=== PATIENT | female | born 1935 | race Caucasian/White ===

== ENCOUNTER 2021-12-10 09:45 | Outpatient (CLI) | payer MEDICARE, OTHER, SELFPAY ==
--- OUTSIDE RECORDS SUMMARY | 2021-12-23 12:35 | XMS_ITS | Clinical Summary ---
:1935 Author Organization [facility] Address [address] [place] [address]. [place] [address] Care Team Providers Name Role Phone Loren Beyer MD Primary Care Provider [phone] Allergies Active Allergy Reactions Severity Noted Date Comments Alendronic Acid 07/03/2014 Animal Dander 01/22/2013 Asthma Aspirin 01/22/2013 Doesn't tolerat e because of asth ma Atorvastatin 01/22/2013 Stiff neck and neck pain Calcitonin 07/03/2014 Claritin 01/22/2013 Stays awake for 40 hours after 1/4 tablet Codeine Unknown 07/01/2014 Hallucinations Food High 01/22/2013 Any contact wit h peas, even odor, caus es throat to swell shut. Spicy and acidi c foods cause GERD Fosamax 01/22/2013 Hydromorphone Other (See 07/03/2014 Mental changes Comments) Lisinopril Itching 07/03/2014 Loratadine 07/03/2014 Lorazepam Other (See 07/03/2014 confusion Comments) Oxycodone 01/22/2013 Hallucinations and confusion Penicillins Swelling High 01/22/2013 Head swells; a sthma flares up Perfume 01/22/2013 Asthma Petrolatum, Hydrophilic Rash Low 01/22/2013 Juan oleum based salves and lotions cau se rash Pollen Extract 01/22/2013 asthma Smoke. 01/22/2013 Asthma Sulfa Drugs Shortness Of High 01/22/2013 asthma flares up Breath, Swelling Wool Fiber 01/22/2013 asthma Medications Medication Sig Dispensed Refills Start Date End Date Status OMEPRAZOLE PO Take 20 mg by 0 Ac tive mouth 2 times daily (before meals) Levothyroxine Sodium Take 25 mcg by 0 Active (SYNTHROID PO) mouth every morning albuterol (PROAIR HFA, Inhale 2 puffs 0 Active PROVENTIL HFA, into the lungs 2 VENTOLIN HFA) 108 (90 times daily BASE) MCG/ACT inhaler beclomethasone (QVAR) Inhale 2 puffs 0 Active 80 MCG/ACT Inhaler into the lungs 2 times daily CLONIDINE HCL PO Take 0.05 mg by 0 Active mouth 2 times daily SERTRALINE HCL PO Take 50 mg by 0 Active mouth every evening raloxifene (EVISTA) 60 Take 60 mg by 0 Active MG tablet mouth every evening calcium-vitamin D Take 1 tablet by 0 Active (CALTRATE) 600-400 mouth daily MG-UNIT per tablet multivitamin, Take 1 tablet by 0 Active therapeutic with mouth daily minerals (MULTI-VITAMIN) TABS PREDNISONE PO 20 mg for 5 days, 0 Active then 10 mg for 5 days, then 10 mg every other day for 5 days - for asthma flareup - PRN albuterol (2.5 MG/3ML) Take 1 ampule by 0 Active 0.083% nebulizer nebulization every solution 6 hours as needed NEW MED Digel - takes 2 0 Acti ve tablets or 2 teaspoons prn ONDANSETRON PO Take 4 mg by mouth 0 Active every 6 hours as needed for other (for vertigo prior to taking Meclizine) Follow with Meclizine MECLIZINE HCL PO Take 12.5 mg by 0 Active mouth every 6 hours as needed for other (for vertigo) LACTASE ENZYME PO Take 9,000 Units 0 Active by mouth as needed Before ingesting any dairy product chlorpheniramine Take 2 mg by mouth 0 Active (CHLOR-TRIMETON) 4 MG every 6 hours as tablet needed Takes for pollen allergy prn Active Problems No known active problems Resolved Problems Problem Noted Date Resolved Date 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 02/01/2013 Social History Tobacco Use Types Packs/Day Years Used Date Never Smoker Smokeless Tobacco: Never Used Alcohol Use Standard Drinks/Week Comments No 0 (1 standard drink = 0.6 oz pure alcoho l) Sex Assigned at Date Recorded Not on file Last Filed Vital Signs Vital Sign Reading Time Taken Comments Blood Pressure 166/69 11/25/2017 9:20 AM CDT Pulse 86 01/31/2013 11:33 PM CDT Temperature 36.3 ??C (97.4 ??F) 02/02/2013 7:50 AM CDT Respiratory Rate 27 11/25/2017 9:21 AM CDT Oxygen Saturation 100% 11/25/2017 9:21 AM CDT Inhaled Oxygen Concentration - - Weight 51.7 kg (114 lb) 11/25/2017 7:20 AM CDT Height 147.3 cm (4' 10) 11/25/2017 7:20 AM CDT Body Mass Index 23.83 11/25/2017 7:20 AM CDT Plan of Treatment Not on file Medical Devices Implanted Type Area Retail Wireless Sales Consultant Device Shelf Model / Identifier Expiration Date Ser ial / Lot Humeral Bearing Standard [id number] Right: 10/12/2017 [id number] / Implanted: Qty: 1 on 01/30/2013 by Jc Farr MD at [facility] / [id number] Insurance Payer Benefit Plan / Subscriber ID Effective Phone Address T ype Group Dates MEDICA MEDICA PRIME [id number] 2010-Prese [phone] [address] Indemnity [address]UTION [address] [place] [address] MEDICARE MEDICARE FOR HB [id number] 2008-Prese [phone] ATTN CLAIMS Medicare SUPPLEMENT nt 40 [address] [place] [address] Advance Directives For more information, please contact: [phone] Latest Code Status on File Code Status Date Activated Date Inactivated Comments DNR/DNI 01/30/2013 12:12 PM 02/02/2013 12:40 PM Care Teams Director Patient Accounting Relationship Specialty Start Date End Date Loren Beyer MD PCP - General Family Practice 11/15/[address] [id number]
--- OUTSIDE RECORDS SUMMARY | 2021-12-23 12:35 | XMS_ITS | Encounter Summary ---
:1935 Author Organization [place] Address [facility] [place] [address] Care Team Providers Name Role Phone Arlin López Primary Care Provider Reason for Visit Auth/Cert - Closed Specialty Diagnoses / Procedures Referred By Contact Refer red To Contact Surgery Diagnoses Right shoulder degenerative joint disease Rh Periop Se rvices Procedures ARTHROPLASTY SHOULDER REVERSE ARTHROPLASTY SHOULDER> [address] [place], [place] [phone] Fax: Referral ID Status Reason Start Date Expiration Date Visits Requ ested Visits Authorized [id number] Closed 1 1 Encounter Details Date Type Department Care Team Description 01/29/2013 Hospital Encounter [facility] Jc Phelps MD Laboratory [facility] [address] [facility] ORTHOPED[facility] [place], [place] [address] [facility] [phone] [address] [place] [address] (Wo rk) Social History Tobacco Use Types Packs/Day Years Used Date Never Smoker Alcohol Use Standard Drinks/Week Comments No 0 (1 standard drink = 0.6 oz pure alcoho l) Sex Assigned at Date Recorded Not on file documented as of this encounter Medications at Time of Discharge Medication Sig Dispensed Refills Start Date End Date albuterol (2.5 MG/3ML) Take 1 ampule by 0 0.083% nebulizer solution nebulization every 6 hours as needed albuterol (PROAIR HFA, Inhale 2 puffs into 0 PROVENTIL HFA, VENTOLIN the lungs 2 times HFA) 108 (90 BASE) daily MCG/ACT inhaler beclomethasone (QVAR) 80 Inhale 2 puffs into 0 MCG/ACT Inhaler the lungs 2 times daily calcium-vitamin D Take 1 tablet by 0 (CALTRATE) 600-400 mouth daily MG-UNIT per tablet chlorpheniramine Take 2 mg by mouth 0 (CHLOR-TRIMETON) 4 MG every 6 hours as tablet needed Takes for pollen allergy prn CLONIDINE HCL PO Take 0.05 mg by 0 mouth 2 times daily LACTASE ENZYME PO Take 9,000 Units by 0 mouth as needed Before ingesting any dairy product Levothyroxine Sodium Take 25 mcg by mouth 0 (SYNTHROID PO) every morning MECLIZINE HCL PO Take 12.5 mg by 0 mouth every 6 hours as needed for other (for vertigo) multivitamin, therapeutic Take 1 tablet by 0 with minerals mouth daily (MULTI-VITAMIN) TABS NEW MED [place] - takes 2 0 tablets or 2 teaspoons prn OMEPRAZOLE PO Take 20 mg by mouth 0 2 times daily (before meals) ONDANSETRON PO Take 4 mg by mouth 0 every 6 hours as needed for other (for vertigo prior to taking Meclizine) Follow with Meclizine PREDNISONE PO 20 mg for 5 days, 0 then 10 mg for 5 days, then 10 mg every other day for 5 days - for asthma flareup - PRN raloxifene (EVISTA) 60 MG Take 60 mg by mouth 0 tablet every evening SERTRALINE HCL PO Take 50 mg by mouth 0 every evening bisacodyl (DULCOLAX) 5 MG Take 5 mg by mouth 0 07/03/2014 EC tablet daily as needed FAMOTIDINE PO Take 20 mg by mouth 0 2 times daily GABAPENTIN PO Take 300 mg by mouth 0 0 07/01/2014 2 times daily TRAMADOL HCL PO Take 25 mg by mouth 0 07/01/2014 2 times daily documented as of this encounter Plan of Treatment Not on filedocumented as of this encounter Procedures Procedure Name Priority Date/Time Associated Comments Diagnosis CBC WITH PLATELETS & Routine 01/29/2013 4:28 PM R esults for this DIFFERENTIAL CDT procedure are i n the results section. INR Routine 01/29/2013 4:28 PM Results f or this CDT procedure are i n the results section. PARTIAL THROMBOPLASTIN Routine 01/29/2013 4:28 PM Results for this TIME CDT procedure are i n the results section. COMPREHENSIVE METABOLIC Routine 01/29/2013 4:28 PM Results for this PANEL CDT procedure are i n the results section. ABO/RH TYPE AND SCREEN Routine 01/29/2013 4:28 PM Results for this CDT procedure are i n the results section. documented in this encounter Results Partial thromboplastin time (01/29/2013 4:28 PM CDT) athologist Signature PTT 32 22 - 37 sec [facility] Specimen Anatomical Collection Method Collection Time Receive d Time (Source) Location / / Volume Laterality 01/29/2013 4:28 PM 3 4:35 CDT PM CDT Jc Farr MD LAB - BLOOD ORDERABLES Performing Organization Address [facility] [phone] [place] [address] LAB INR (01/29/2013 4:28 PM CDT) athologist Signature INR 0.95 0.86 - 1.14 [facility] Specimen Anatomical Collection Method Collection Time Receive d Time (Source) Location / / Volume Laterality 01/29/2013 4:28 PM 3 4:35 CDT PM CDT Jc Farr MD LAB - BLOOD ORDERABLES Performing Organization Address [facility]/[place] [address] [place], [place] [address] [address] [phone] [place] [address] LAB Comprehensive metabolic panel (01/29/2013 4:28 PM CDT) athologist Signature Sodium 139 133 - 144 [place] mmol/L [facility] Potassium 4.0 3.4 - 5.3 [place] mmol/L [facility] Chloride 101 94 - 109 [place] mmol/L [facility] Carbon Dioxide 31 20 - 32 [place] mmol/L [facility] Anion Gap 7 6 - 17 [place] mmol/L [facility] Glucose 98 60 - 99 [place] mg/dL [facility] Urea Nitrogen 16 7 - 30 [place] mg/dL [facility] Creatinine 0.77 0.52 - [place] 1.04 mg/dL [facility] GFR Estimate 73 >60 [place] mL/min/1.[address] LAB GFR Estimate If 88 >60 [place] Black mL/min/1.[address] LAB Calcium 8.9 8.5 - 10.4 [place] mg/dL [facility] Bilirubin Total 0.3 0.2 - 1.3 [place] mg/dL [facility] Albumin 3.8 3.3 - 4.9 [place] g/dL [facility] Protein Total 7.1 6.8 - 8.8 [place] g/dL [facility] Alkaline 62 40 - 150 [place] Phosphatase U/L [facility] ALT 30 0 - 50 U/L [facility] AST 28 0 - 45 U/L [facility] Specimen Anatomical Collection Method Collection Time Receive d Time (Source) Location / / Volume Laterality 01/29/2013 4:28 PM 3 4:35 CDT PM CDT Jc Farr MD LAB - BLOOD ORDERABLES Performing Organization Address City/State/ZIP Code Phon e Number M [place] [address] [place], [place] [address] [facility] (ABNORMAL) CBC with platelets differential (01/29/2013 4:28 PM CDT) [facility] Method Time Signature WBC 7.4 4.0 - [place] 11.0 [facility] 10e9/L [facility] RBC Count 4.42 3.8 - 5.2 [place] 10e12/L [facility] Hemoglobin 11.3 (L) 11.7 - [place] 15.7 g/dL [facility] Hematocrit 36.2 35.0 - [facility] 47.0 % [facility] MCV 82 78 - 100 [place] fl [facility] MCH 25.6 (L) 26.5 - [facility] 33.0 pg [facility] MCHC 31.2 (L) 31.5 - [place] 36.5 g/dL [facility] RDW 16.4 (H) 10.0 - [place] 15.0 % [facility] Platelet Count 221 150 - 450 [place] 10e9/L [facility] Diff Method Automated [facility] LAB % Neutrophils 62.5 % [facility] % Lymphocytes 25.2 % [facility] % Monocytes 8.5 % [facility] % Eosinophils 3.1 % [facility] % Basophils 0.4 % [facility] % Immature 0.3 % [place] Granulocytes [facility] Absolute 4.6 1.6 - 8.3 [place] Neutrophil 10e9/L [facility] Absolute 1.9 0.8 - 5.3 [place] Lymphocytes 10e9/L [facility] Absolute 0.6 0.0 - 1.3 [place] Monocytes 10e9/L [facility] Absolute 0.2 0.0 - 0.7 [place] Eosinophils 10e9/L [facility] Absolute 0.0 0.0 - 0.[address] [place] Basophils [address] [place] [address] LAB Abs Immature 0.0 0 - 0.4 [place] Granulocytes [address] [place] [address] LAB Specimen Anatomical Collection Method Collection Time Receive d Time (Source) Location / / Volume Laterality 01/29/2013 4:28 PM 3 4:35 CDT PM CDT Jc Farr MD LAB - BLOOD ORDERABLES Performing Organization Address City/State/ZIP Code Phon e Number M [facility] [address] [place], [place] [address] [facility] ABO/Rh type and screen (01/29/2013 4:28 PM CDT) [facility] gist Method Time Signature ABO A [facility] RH(D) Neg [facility] Antibody Neg [place] Screen [facility] Test Valid [facility] Only At [facility] LAB Specimen 02/01/2013 [place] [facility] Specimen Anatomical Collection Method Collection Time Receive d Time (Source) Location / / Volume Laterality 01/29/2013 4:28 PM 3 4:34 CDT PM CDT Jc Farr MD LAB - BLOOD BANK TEST ORDER Performing Organization Address City/State/ZIP Code Phon e Number M [facility] [address] [place], [place] [address] [facility] documented in this encounter Visit Diagnoses Not on filedocumented in this encounter Care Teams Home School Coordinator Relationship Specialty Start Date End Date Arlin López PCP - General Internal Medicine 01/18/13 11/14/17 [facility] [address] [place] [address] documented as of this encounter
--- OUTSIDE RECORDS SUMMARY | 2021-12-23 12:35 | XMS_ITS | Encounter Summary ---
:1935 Author Organization [facility] Address [address] [place] [address]. [place] [address] Care Team Providers Name Role Phone Arlin López Primary Care Provider Reason for Referral Specialty Diagnoses / Procedures Referred By Contact Refer red To Contact [facility] [address] [place] [address] Referral ID Status Reason Start Date Expiration Date Visits Requ ested Visits Authorized Reason for Visit Auth/Cert - Closed Specialty Diagnoses / Procedures Referred By Contact Refer red To Contact Surgery Diagnoses Right shoulder degenerative joint disease Rh Periop Se rvices Procedures ARTHROPLASTY SHOULDER REVERSE ARTHROPLASTY SHOULDER> [address] [place], [place] [phone] Fax: Referral ID Status Reason Start Date Expiration Date Visits Requ ested Visits Authorized [id number] Closed 1 1 Encounter Details Date Type Department Care Team Description 01/30/2013 - Hospital Encounter [facility] Evy Farr arthritis 02/02/2013 [facility] Jethro Wagner MD (Primary Dx) Surgical [facility] [address] [employer] [place], [place] [address] [address] [address] [place] [address] Social History Tobacco Use Types Packs/Day Years Used Date Never Smoker Alcohol Use Standard Drinks/Week Comments No 0 (1 standard drink = 0.6 oz pure alcoho l) Sex Assigned at Date Recorded Not on file documented as of this encounter Last Filed Vital Signs Vital Sign Reading Time Taken Comments Blood Pressure 153/75 01/30/2013 12:15 PM CDT Pulse - - Temperature 36.9 ??C (98.4 ??F) 01/30/2013 12:15 PM CDT Respiratory Rate 16 01/30/2013 12:15 PM CDT Oxygen Saturation 98% 01/30/2013 12:15 PM CDT Inhaled Oxygen Concentration - - Weight 53.5 kg (118 lb) 01/30/2013 5:40 AM CDT Height 147.3 cm (4' 10) 01/30/2013 5:40 AM CDT Body Mass Index 24.66 01/30/2013 5:40 AM CDT documented in this encounter Discharge Summaries Evy Farr MD - 02/01/2013 10:44 AM CDT [facility] Discharge Summary Fawad Unger [id number] Age: [age] year old 1935 Date of Admission: 01/30/2013 Date of Discharge:: February 02, 2013 Admitting Physician: Evy Farr MD Discharge Physician: Evy Farr MD Admission Diagnoses: Osteoarthritis Discharge Diagnosis: Arthoplasty of the shoulder Procedures: Procedure(s): Total shoulder arthoplasty (Right) Medications Prior to Admission: Prescriptions prior to admission Medication Sig Dispense Refill ??? OMEPRAZOLE PO Take 20 mg by mouth 2 times daily (before meals) ??? Levothyroxine Sodium (SYNTHROID PO) Take 25 mcg by mouth every morning ??? albuterol (PROAIR HFA, PROVENTIL HFA, VENTOLIN HFA) 108 (90 BASE) MCG/ACT inhaler Inhale 2 puffsinto the lungs 2 times daily ??? beclomethasone (QVAR) 80 MCG/ACT Inhaler Inhale 2 puffs into the lungs 2 times daily ??? FAMOTIDINE PO Take 20 mg by mouth 2 times daily ??? CLONIDINE HCL PO Take 0.05 mg by mouth 2 times daily ??? GABAPENTIN PO Take 300 mg by mouth 2 times daily ??? TRAMADOL HCL PO Take 25 mg by mouth 2 times daily ??? SERTRALINE HCL PO Take 50 mg by mouth every evening ??? raloxifene (EVISTA) 60 MG tablet Take 60 mg by mouth every evening ??? calcium-vitamin D (CALTRATE) 600-400 MG-UNIT per tablet Take 1 tablet by mouth daily ??? multivitamin, therapeutic with minerals (MULTI-VITAMIN) TABS Take 1 tablet by mouth daily ??? NEW MED Digel - takes 2 tablets or 2 teaspoons prn ??? ONDANSETRON PO Take 4 mg by mouth every 6 hours as needed Follow with Meclizine ??? LACTASE ENZYME PO Take 9,000 Units by mouth as needed Before ingesting any dairy product ??? chlorpheniramine (CHLOR-TRIMETON) 4 MG tablet Take 2 mg by mouth every 6 hours as needed Takes for pollen allergy prn ??? bisacodyl (DULCOLAX) 5 MG EC tablet Take 5 mg by mouth daily as needed ??? PREDNISONE PO 20 mg for 5 days, then 10 mg for 5 days, then 10 mg every other day for 5 days - for asthma flareup - PRN ??? albuterol (2.5 MG/3ML) 0.083% nebulizer solution Take 1 ampule by nebulization every 6 hours as needed ??? MECLIZINE HCL PO Take 12.5 mg by mouth every 6 hours as needed Discharge Medications: Current Discharge Medication List CONTINUE these medications which have NOT CHANGED Details OMEPRAZOLE PO Take 20 mg by mouth 2 times daily (before meals) Levothyroxine Sodium (SYNTHROID PO) Take 25 mcg by mouth every morning albuterol (PROAIR HFA, PROVENTIL HFA, VENTOLIN HFA) 108 (90 BASE) MCG/ACT inhaler Inhale 2 puffs into the lungs 2 times daily beclomethasone (QVAR) 80 MCG/ACT Inhaler Inhale 2 puffs into the lungs 2 times daily FAMOTIDINE PO Take 20 mg by mouth 2 times daily CLONIDINE HCL PO Take 0.05 mg by mouth 2 times daily GABAPENTIN PO Take 300 mg by mouth 2 times daily TRAMADOL HCL PO Take 25 mg by mouth 2 times daily SERTRALINE HCL PO Take 50 mg by mouth every evening raloxifene (EVISTA) 60 MG tablet Take 60 mg by mouth every evening calcium-vitamin D (CALTRATE) 600-400 MG-UNIT per tablet Take 1 tablet by mouth daily multivitamin, therapeutic with minerals (MULTI-VITAMIN) TABS Take 1 tablet by mouth daily NEW MED Digel - takes 2 tablets or 2 teaspoons prn ONDANSETRON PO Take 4 mg by mouth every 6 hours as needed Follow with Meclizine LACTASE ENZYME PO Take 9,000 Units by mouth as needed Before ingesting any dairy product chlorpheniramine (CHLOR-TRIMETON) 4 MG tablet Take 2 mg by mouth every 6 hours as needed Takes for pollen allergy prn bisacodyl (DULCOLAX) 5 MG EC tablet Take 5 mg by mouth daily as needed PREDNISONE PO 20 mg for 5 days, then 10 mg for 5 days, then 10 mg every other day for 5 days - for asthma flareup - PRN albuterol (2.5 MG/3ML) 0.083% nebulizer solution Take 1 ampule by nebulization every 6 hours as needed MECLIZINE HCL PO Take 12.5 mg by mouth every 6 hours as needed Consultations: Consultation during this admission received from hospitalist service Brief History of Illness: Reason for admission requiring a surgical or invasive procedure: Arthoplasty of the shoulder The patient underwent the following procedure(s): Total shoulder arthoplasty (Right) There were no immediate complications during this procedure. Please refer to the full operative summary for details. Hospital Course: The patient's hospital course was unremarkable. The patient recovered as anticipated and experiencedno post-operative complications. They Did not receive a blood transfusion. Discharge Instructions and Follow-Up: Discharge diet: Regular Discharge activity: Activity as tolerated Sling mouthpiece maker except for showering and dressing or doing exercises. May do codman passive pendulumexercised. No active resisted internal rotation or external rotation past 0 degrees Discharge follow-up: Follow up with me in 10-14 days Anticoagulation none Wound care: May get incision wet in shower but do not soak or scrub Leave dressing intact until follow up. Discharge Disposition: Discharged to short-term care facility Attestation: I have reviewed today's vital signs, notes, medications, labs and imaging. Evy Farr MD documented in this encounter Medications at Time of Discharge [...] times daily documented as of this encounter Progress Notes Evy Farr MD - 02/02/2013 10:58 AM CDT Brittani Hinds LSW - 02/02/2013 10:43 AM CDT SWS D: Discharge planning for transfer today to rehab facility. Call received this morning from Mery at [facility] informing that they have no openings there. Pt and had identified [facility] as facility for consideration, assessment completed and they will be able to accept pt there. As arrangements were being finalized for pt's transfer, with providing transport, [facility] foreign exchange student coordinator called informing that they do have be available. Pt has requested that arrangements be made for her transfer to [facility], arrangements were adjusted and pt discharged to that facility for rehab stay with providing transport ( @ 1015) as noted. With discharge today, no furtehr SWS. Brittani Hinds LSW - 02/01/2013 3:18 PM CDT SWS D: Discharge planning continuing.. Discussed with MD who informs of plan for pt's transefr tomorrowto rehab facility. [facility] has no openings, awaiting calls back from [facility] to determine if they have opening there. I: Met with and discussed above with pt and . Addressed questions they had regarding possibility of pt's return home on discharge with home care services, discussed intermittent nature of home care, posed question about 's ability to provide support needed at home with pt's care needs. Recommended consideration of other rehab facilities, they have indicated that [place], or maybe [facility] as son lives in that area. SW has provided information on rehab facility in thoseidentified areas, requested that pt andhusband review and advise of facilities they may be interested in so assessments can be done. A/P: Discharge disposition undetermined.. SW will follow up with pt and tomorrow for further discharge planning based on decisions that they make. TAT Marquita Baer MD - 02/01/2013 10:42 AM CDT [facility] Hospitalist Progress Note Assessment and Plan: Patient is a 77 year old female who is POD 1 s/p reverse total shoulder arthroplasty, right 1. Hypertension: BP on the high side. Continue on CLINICAL REGISTERED NURSE clonidine with parameters. Will continue to monitor blood pressure 2. GERD: Continue on CLINICAL REGISTERED NURSE omeprazole and famotidine 3. Asthma: has no wheezes. Will continue CLINICAL REGISTERED NURSE QVAR and Proair inhalers, she has brought them from home. 4. Postherpetic neuralgia: Continue on CLINICAL REGISTERED NURSE gabapentin 5. Hypothyroidism: Continue on CLINICAL REGISTERED NURSE levothyroxine 6. S/p reverse total shoulder arthroplasty: Pain management, DVT PPX, OT/PT, and discharge per ortho. DVT prophylaxis: PCDs and Lovenox per ortho Code status is DNR/DNI Disposition: per primary team Interval History: Patient claims that she has some nausea. She denies vomiting. She has no shortness of breath or chest pain. Medications: I have reviewed this patient's current medications ??? beclomethasone 2 puff Inhalation BID ??? acetaminophen 1,000 mg Oral 3 times daily Or ??? acetaminophen 650 mg Rectal 3 times daily ??? albuterol 2 puff Inhalation BID ??? cloNIDine 0.05 mg Oral BID ??? famotidine (PEPCID) tablet 20 mg 20 mg Oral BID ??? gabapentin (NEURONTIN) capsule 300 mg 300 mg Oral BID ??? lactase (LACTAID) tablet 9,000 Units 9,000 Units Oral TID w/meals ??? omeprazole (priLOSEC) capsule 20 mg 20 mg Oral BID AC ??? sertraline (ZOLOFT) tablet 50 mg 50 mg Oral QPM ??? sodium chloride (PF) 3 mL Intravenous Q8H ??? enoxaparin 40 mg Subcutaneous Q24H ??? senna-docusate 1-2 tablet Oral BID ??? levothyroxine (SYNTHROID, LEVOTHROID) tablet 25 mcg 25 mcg Oral QAM AC ??? DISCONTD: fluticasone 1 puff Inhalation BID Physical Exam: Blood pressure 166/66, pulse 86, temperature 97 ??F (36.1 ??C), temperature source Oral, resp. rate 16, height 1.473 m (4' 10), weight 53.524 kg (118 lb), SpO2 98.00%. I/O last 3 completed shifts: In: 2201 [P.O.:1060; I.V.:1141] Out: 1900 [Urine:1900] Filed Vitals: 01/22/13 1500 01/26/13 1200 01/30/13 0540 Weight: 51.483 kg (113 lb 8 oz) 53.524 kg (118 lb) 53.524 kg (118 lb) EXAM: Constitutional: healthy, not in acute distress Cardiovascular: RRR. No murmurs, clicks gallops or rub Respiratory: Lungs clear from the sides bilaterally Psychiatric: mentation appears normal and affect normal/bright Abdomen: Abdomen soft, non-tender. BS normal. No masses, organomegaly NEURO: CN II-XII intact; moving all extremities except left shoulder- in sling JOINT/EXTREMITIES: no edema bilaterally; right shoulder in sling Data: Recent labs, imaging, and other studies were reviewed. Lab 02/01/13 0625 01/31/13 0553 01/30/13 1300 01/29/13 1628 NA -- -- -- 139 POTASSIUM -- -- -- 4.0 CHLORIDE -- -- -- 101 CO2 -- -- -- 31 ANIONGAP -- -- -- 7 GLC 108* 112* -- 98 BUN -- -- -- 16 CR -- -- 0.64 0.77 GFRESTIMATED -- -- >90 73 GFRESTBLACK -- -- >90 88 KARY -- -- -- 8.9 Lab 02/01/13 0625 01/31/13 0553 01/30/13 1300 01/29/13 1628 WBC 12.4* -- -- 7.4 HGB 11.0* 10.5* -- 11.3* HCT 34.3* -- -- 36.2 MCV 80 -- -- 82 PLT 216 -- 212 221 Evy Farr MD - 02/01/2013 8:11 AM CDT Post op day #2 Procedure: left Total shoulder Arthoplasty Pain: 07/23 Hemoglobin: Hemoglobin Date Value Range Status 02/01/2013 11.0* 11.7 - 15.7 g/dL Final 01/31/2013 10.5* 11.7 - 15.7 g/dL Final Denies chest pain, shortness of breath, light headedness. Is complaining of nausea and vomiting Vitals: B/P: 166/66, T: 97, P: 86, R: 16 Wound: clean, dry and intact. No erythema. Distal neurovascular exam with in normal limits. Calves soft and non tender. Assessment: Stable post op left Total shoulder Arthoplasty Plan: Mobilize Disposition: Rehab Anticipated date of discharge: 02/02/13 Evy Farr MD [phone] Adia Colorado MD - 01/31/2013 3:50 PM CDT [facility] Hospitalist Progress Note Assessment and Plan: Patient is a 77 year old female who is POD 0 s/p reverse total shoulder arthroplasty, right 1. Hypertension: Elevated. Continue on CLINICAL REGISTERED NURSE clonidine with parameters. Patient makes it clear that she wishes to have no other medications added to her regimen. 2. GERD: Continue on CLINICAL REGISTERED NURSE omeprazole and famotidine 3. Asthma: No wheezing currently, well controlled. Resume CLINICAL REGISTERED NURSE QVAR and Proair inhalers, she has brought them from home. 4. Postherpetic neuralgia: Continue on CLINICAL REGISTERED NURSE gabapentin 5. Hypothyroidism: Continue on CLINICAL REGISTERED NURSE levothyroxine 6. Low-grade temperature. No signs of infection currently. Likely related to post-op. Monitor for now. 7. S/p reverse total shoulder arthroplasty: Pain management, DVT PPX, OT/PT, and discharge per ortho. Discussed with nurse, and consider anti-nausea meds with the pain medication to prevent nausea/vomiting. DVT prophylaxis: PCDs and Lovenox per ortho Code status is DNR/DNI Disposition: Plans to discharge to rehab facility, SW consult ordered. Interval History: Patient had nausea/vomiting with pain medication. Denies any chest pain or shortness of breath. Denies any pain currently. Medications: I have reviewed this patient's current medications Physical Exam: Blood pressure 148/56, pulse 79, temperature 100.5 ??F (38.1 ??C), temperature source Oral, resp. rate 16, height 1.473 m (4' 10), weight 53.524 kg (118 lb), SpO2 90.00%. I/O last 3 completed shifts: In: 210 [P.O.:440; I.V.:1661] Out: 2600 [Urine:2600] Filed Vitals: 01/22/13 1500 01/26/13 1200 01/30/13 0540 Weight: 51.483 kg (113 lb 8 oz) 53.524 kg (118 lb) 53.524 kg (118 lb) EXAM: Constitutional: healthy, drowsy and no distress Cardiovascular: RRR. No murmurs, clicks gallops or rub Respiratory: Lungs clear from the sides bilaterally Psychiatric: mentation appears normal and affect normal/bright Abdomen: Abdomen soft, non-tender. BS normal. No masses, organomegaly NEURO: CN II-XII intact; moving all extremities except left shoulder- in sling JOINT/EXTREMITIES: no edema bilaterally; right shoulder in sling Data: Recent labs, imaging, and other studies were reviewed. Lab 01/31/13 0553 01/30/13 1300 01/29/13 1628 NA -- -- 139 POTASSIUM -- -- 4.0 CHLORIDE -- -- 101 CO2 -- -- 31 ANIONGAP -- -- 7 GLC 112* -- 98 BUN -- -- 16 CR -- 0.64 0.77 GFRESTIMATED -- >90 73 GFRESTBLACK -- >90 88 KARY -- -- 8.9 Lab 01/31/13 0553 01/30/13 1300 01/29/13 1628 WBC -- -- 7.4 HGB 10.5* -- 11.3* HCT -- -- 36.2 MCV -- -- 82 PLT -- 212 221 Adia Colorado MD Brittani Hinds LSW - 01/31/2013 3:47 PM CDT SWS D: Per request to assist with discharge planning. Chart reviewed noting pt's admit yesterday after surgery for R TSA, noted PT assessment with anticipation of pt's transfer to rehab facility on discharge. Pt lives with her in their apartment in [place], prior to surgery she had been independent with ambulation and ADLs. I: Met with pt and , they affirm plan for pt's transfer to rehab facility and identify [facility], and [facility] as facility preferences.. they have spoken to facilities prior to pt's surgery in anticipation of pt's rehab facility transfer upon hospital discharge.Referral made to resource center for contact with facilities and determination of bed availability. acknowledges understanding of Medicare/SNF criteria. A/P: Good post-hospital care and support planning.. Will await assessments and MD determination of discharge date and continue planning accordingly. Thu Goldstein OT - 01/31/2013 12:14 PM CDT 01/31/13 0810 Quick Adds Type of Visit Initial Occupational Therapy Evaluation Living Environment (R) Lives With spouse Living Arrangements apartment Home Accessibility grab bars present (bathtub);tub/shower is not walk in Number of Stairs To Enter Home 0 Number of Stairs Within Home 0 Living Environment Comment Pt lives in independent living with supportive ; they have not hadcar for 14 yrs; pt has bike with cart for groceries or else facility has planned van trips Self-Care Dominant Hand right Usual Activity Tolerance good Current Activity Tolerance poor Regular Exercise no Equipment Currently Used At Home none Activity/Exercise/Self-Care Comment Pt had been I with all ADLs/IADLs previously (R) Functional Level Prior (R) Ambulation 0-->independent (R) Transferring 0-->independent (R) Toileting 0-->independent (R) Bathing 0-->independent (R) Dressing 0-->independent (R) Eating 0-->independent (R) Communication 0-->understands/communicates without difficulty (R) Swallowing 0-->swallows foods and liquids without difficulty (R) Cognition 0 - no cognition issues reported (R) Fall history within last six months no (R) Which of the above functional risks had a recent onset or change? none Prior Functional Level Comment Pt has had shingles for past few months, helping a lot General Information Onset of Illness/Injury or Date of Surgery - Date 01/30/13 Referring Physician Evy Farr MD Patient/Family Goals Statement return home following TCU stay Pertinent History of Current Problem Pt admitted wtih R reverse shoulder surgery, PMHx HTN, hypothyroidism, vertigo General Observations pt in bed, moaning/crying out in pain frequently d/t spasms Cognitive Status Examination Orientation orientation to person, place and time Level of Consciousness alert Follows Commands and Answers Questions 100% of the time;able to follow single- step instructions Personal Safety and Judgment intact Cognitive Comment no cognitive concerns at this time, will monitor Visual Perception Visual Perception Wears glasses Sensory Examination Sensory Quick Adds No deficits were identified Pain Assessment Patient Currently in Pain Yes, see Vital Sign flowsheet (02/22 with spasms; 8 at rest) Range of Motion (ROM) ROM Comment R UE not tested; L UE WFL Strength Strength Comments no MMT at this time d/t pain Hand Strength Hand Strength Comments R gross grasp decreased strength Coordination Upper Extremity Coordination Right UE impaired Functional Limitations Decreased speed;Fine motor ADL performance impaired;Impaired ability to perform bilateral tasks;Object transport impaired;Reach to targets impaired Mobility Bed Mobility Comments Mod A Transfer Skills Transfer Comments Mod A, hand over hand Transfer Skill: Sit to Stand Level of [place]: Sit/Stand moderate assist (50% patients effort) Physical Assist/Nonphysical Assist: Sit/Stand set-up required;supervision;verbal cues;nonverbal cues(demo/gestures);1 person assist Transfer Skill: Toilet Transfer Level of [place]: Toilet moderate assist (50% patients effort) Physical Assist/Nonphysical Assist: Toilet set-up required;supervision;verbal cues;nonverbal cues (demo/gestures);1 person assist Balance Balance Comments decreased balance upon standing and mobility in bed Upper Body Dressing Level of [place]: Dress Upper Body maximum assist (25% patients effort) Lower Body Dressing Level of [place]: Dress Lower Body maximum assist (25% patients effort) Toileting Level of [place]: Toilet moderate assist (50% patients effort) Grooming Level of [place]: Grooming moderate assist (50% patients effort) Eating/Self Feeding Level of [place]: Eating moderate assist (50% patients effort) (pt's feeding pt d/t pain and ROM) Instrumental Activities of Daily Living (IADL) Previous Responsibilities meal prep;laundry;shopping;medication management IADL Comments Pt had been volunteering but lately has been out of activity d/t shingles/pain Activities of Daily Living Analysis Impairments Contributing to Impaired Activities of Daily Living balance impaired;coordination impaired;pain;post surgical precautions;ROM decreased;strength decreased General Therapy Interventions Planned Therapy Interventions ADL retraining;transfer training Clinical Impression Criteria for Skilled Therapeutic Interventions Met yes, treatment indicated OT Diagnosis decreased ability to complete ADLs and self cares Influenced by the following impairments R shoulder precautions, pain, dizziness, decreased balance, strength Functional limitations due to impairments see above Rehab Potential good, to achieve stated therapy goals Rehab potential affected by pt I at baseline Therapy Frequency daily Predicted Duration of Therapy Intervention (days/wks) 3 days Anticipated Discharge Disposition inpatient rehabilitation facility Risks and Benefits of Treatment have been explained. Yes Patient, Family & other staff in agreement with plan of care Yes Total Evaluation Time Total Evaluation Time (Minutes) 15 Saul Tellez - 01/31/2013 11:29 AM CDT [facility] Progress Note [facility] 205 DATA: Responded to a pt request to see a hospital wastewater superintendent. Pt was lying in bed awake with her in the room. INTERVENTION: Pt reported being in a lot of pain from the surgery. Pt reported being involved with their mariaelena. Ptmentioned that their j2ee programmer was with them yesterday during the surgery. Pt shared about their children and how they are a support network for them. Pt shared that her and her find hilda in volunteering at a school together. Pt asked for prayer, and we prayed in the room. Pt mentioned being nauseous from the pain. Canal Lock Tender Chief Operator offered supportive listening and encouragement to pt for their treatment and recovery. ASSESSMENT: Pt seemed to be well supported by her mariaelena community, and her PLAN: Continue to pray for the pt. Canal Lock Tender Chief Operator availability upon request Saul Tellez Canal Lock Tender Chief Operator Radio Mechanic Pager [phone] Candy Lopez, PT - 01/31/2013 10:23 AM CDT 01/31/13 0900 Quick Adds Type of Visit Initial PT Evaluation Living Environment (R) Lives With spouse Living Arrangements apartment (senior housing) Living Environment Comment Lives in long term. Pt has supportive . Self-Care Dominant Hand right Usual Activity Tolerance good Current Activity Tolerance poor Regular Exercise no Equipment Currently Used At Home none Activity/Exercise/Self-Care Comment hasn't been able to exercise recently, had shingles on shoulder,then increased shoulder pain. Tries to walk 1 mile per day. (R) Functional Level Prior (R) Ambulation 0-->independent (R) Transferring 0-->independent (R) Toileting 0-->independent (R) Bathing 0-->independent (R) Dressing 0-->independent (R) Eating 0-->independent (R) Communication 0-->understands/communicates without difficulty (R) Swallowing 0-->swallows foods and liquids without difficulty (R) Cognition 0 - no cognition issues reported (R) Fall history within last six months no General Information Onset of Illness/Injury or Date of Surgery - Date 01/30/[address] Farr Patient/Family Goals Statement TCU for a couple weeks Pertinent History of Current Problem pt underwent R reverse TSA Precautions/Limitations fall precautions Weight-Bearing Status - RUE nonweight-bearing General Observations Pt in bed, crying out in pain General Info Comments sling on R Cognitive Status Examination Orientation orientation to person, place and time Level of Consciousness alert Follows Commands and Answers Questions 100% of the time Personal Safety and Judgment intact Memory intact Pain Assessment Patient Currently in Pain Yes, see Vital Sign flowsheet (10/10 spasms, 8-9/10 at rest) Posture Posture Comments pt in bed with sling in place Range of Motion (ROM) ROM Comment ROM limited by pain and recent surgery of R shoulder Strength Strength Comments functional weakness Bed Mobility Bed Mobility Comments unable to tolerate mobility due to increased pain General Therapy Interventions Planned Therapy Interventions bed mobility training;gait training;ROM;strengthening;transfer training Clinical Impression Criteria for Skilled Therapeutic Intervention yes, treatment indicated PT Diagnosis s/p reverse TSA APTA Preferred Practice Pattern musculoskeletal Influenced by the following impairments decreased ROM and strength, pain Functional limitations due to impairments impaired mobility Rehab Potential good, to achieve stated therapy goals Rehab potential affected by pain Therapy Frequency` 2 times/day Predicted Duration of Therapy Intervention (days/wks) 3 days Anticipated Discharge Disposition inpatient rehabilitation facility (TCU) Risk & Benefits of therapy have been explained Yes Patient, Family & other staff in agreement with plan of care Yes Total Evaluation Time Total Evaluation Time (Minutes) 8 documented in this encounter H&P Notes Evy Farr MD - 01/24/2013 3:56 PM CDT documented in this encounter Consult Notes Samantha Pal PA-C - 01/30/2013 2:13 PM CDTAssociated Order(s): HOSPITALIST IP CONSULT Hospitalist Consultation Fawad Unger Date of : 1935 Age: [age] year old Date of Admission: 01/30/2013 Requesting Physician: Dr Farr Reason for consult: Management of medical problems Assessment and Plan: This patient is a 77 year old female who is POD 0 s/p reverse total shoulder arthroplasty, right Overall doing well, no complaints. Pain controlled. 1. Hypertension: Resume CLINICAL REGISTERED NURSE clonidine with parameters 2. GERD: Resume CLINICAL REGISTERED NURSE omeprazole and famotidine 3. Asthma: No wheezing currently, well controlled. Resume CLINICAL REGISTERED NURSE QVAR and Proair inhalers, she has brought them from home. 4. Postherpetic neuralgia: Resume CLINICAL REGISTERED NURSE gabapentin 5. Hypothyroidism: Resume CLINICAL REGISTERED NURSE levothyroxine 6. S/p reverse total shoulder arthroplasty: Pain management and OT/PT per ortho 7. DVT prophylaxis: PCDs and Lovenox per ortho 8. Code status is DNR/DNI 8. Disposition: Plans to discharge to rehab facility, consult ordered. History of Present Illness: This patient is a 77 year old female who is POD 0 s/p reverse total shoulder arthroplasty, right Patient is overall doing well, pain is well controlled at this time. Denies any chest pain, nausea, SOB or any other physical concerns. Vital signs have been stable. I/Os reviewed, total net +0.9L with UOP of 1.7L Pt has asthma for which she uses daily inhalers. She had an exacerbation approximately two months ago for which she took a prednisone taper. 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 No significant cardiac history, no history of blood clots. Past Medical History: Past Medical History Diagnosis Date ??? Anesthesia Very slow to wake up. High reaction to meds ??? Asthma ??? Hypertension ??? Neuralgia, postherpetic ??? Urgency of urination ??? Constipation ??? Gastro-oesophageal reflux disease ??? Thyroid disease hypothyroid ??? Vertigo ??? Dysthymia ??? Osteoporosis Past Surgical History: Past Surgical History Procedure Date ? ? Tonsillectomy & adenoidectomy ??? Dilation and curettage x2 ? ? Head & neck surgery wisdom teeth Social History: History Substance Use Topics ??? Smoking status: Never Smoker ??? Smokeless tobacco: Not on file ??? Alcohol Use: No Family History: No significant medical problems in her family Allergies: Allergies Allergen Reactions ??? Food Any contact with peas, even odor, causes throat to swell shut. Spicy and acidic foods cause GERD ??? Penicillins Swelling Head swells ??? Sulfa Drugs Shortness Of Breath and Swelling ??? Animal Dander Asthma ??? Aspirin Doesn't tolerate because of asthma ??? Atorvastatin Stiff neck and neck pain ??? Kenzie Stays awake for 40 hours after 1/4 tablet ??? Fosamax ??? Oxycodone Hallucinations and confusion ??? Perfume Asthma ??? Pollen Extract asthma ??? Smoke. Asthma ??? Wool Fiber asthma ??? Petroleum Jelly (Petrolatum, Hydrophilic) Rash Petroleum based salves and lotions cause rash Medications: Prior to Admission medications Medication Sig Last Dose Taking? Auth Provider OMEPRAZOLE PO Take 20 mg by mouth 2 times daily (before meals) 01/29/2013 at 0800 Yes Reported, Patient Levothyroxine Sodium (SYNTHROID PO) Take 25 mcg by mouth every morning 01/29/2013 at 0800 Yes Reported, Patient albuterol (PROAIR HFA, PROVENTIL HFA, VENTOLIN HFA) 108 (90 BASE) MCG/ACT inhaler Inhale 2 puffs into the lungs 2 times daily 01/30/2013 at 0500 Yes Reported, Patient beclomethasone (QVAR) 80 MCG/ACT Inhaler Inhale 2 puffs into the lungs 2 times daily 01/30/2013 at 0500 Yes Reported, Patient FAMOTIDINE PO Take 20 mg by mouth 2 times daily 01/29/2013 at 1700 Yes Reported, Patient CLONIDINE HCL PO Take 0.05 mg by mouth 2 times daily 01/30/2013 at 0500 Yes Reported, Patient GABAPENTIN PO Take 300 mg by mouth 2 times daily 01/29/2013 at 1800 Yes Reported, Patient TRAMADOL HCL PO Take 25 mg by mouth 2 times daily 01/29/2013 at 1800 Yes Reported, Patient SERTRALINE HCL PO Take 50 mg by mouth every evening 01/29/2013 at 1800 Yes Reported, Patient raloxifene (EVISTA) 60 MG tablet Take 60 mg by mouth every evening 01/29/2013 at 1800 Yes Reported, Patient calcium-vitamin D (CALTRATE) 600-400 MG-UNIT per tablet Take 1 tablet by mouth daily 01/29/2013 at 1800 Yes Reported, Patient multivitamin, therapeutic with minerals (MULTI-VITAMIN) TABS Take 1 tablet by mouth daily 01/29/2013 at 1800 Yes Reported, Patient NEW MED Digel - takes 2 tablets or 2 teaspoons prn Past Week at Unknown Yes Reported, Patient ONDANSETRON PO Take 4 mg by mouth every 6 hours as needed Follow with Meclizine Past Week at UnknownYes Reported, Patient LACTASE ENZYME PO Take 9,000 Units by mouth as needed Before ingesting any dairy product 01/29/2013 at 1800 Yes Reported, Patient chlorpheniramine (CHLOR-TRIMETON) 4 MG tablet Take 2 mg by mouth every 6 hours as needed Takes for pollen allergy prn 01/26/2013 Yes Reported, Patient bisacodyl (DULCOLAX) 5 MG EC tablet Take 5 mg by mouth daily as needed 01/28/2013 Yes Reported, Patient PREDNISONE PO 20 mg for 5 days, then 10 mg for 5 days, then 10 mg every other day for 5 days - for asthma flareup - PRN More than a month at Unknown Reported, Patient albuterol (2.5 MG/3ML) 0.083% nebulizer solution Take 1 ampule by nebulization every 6 hours as needed More than a month at Unknown Reported, Patient MECLIZINE HCL PO Take 12.5 mg by mouth every 6 hours as needed More than a month at Unknown Reported, Patient Review of Systems: A comprehensive greater than 10 system review of systems was carried out. Pertinent positives and negatives are noted above. Otherwise negative for contributory info. Physical Exam: Vitals were reviewed Blood pressure 139/83, temperature 98.4 ??F (36.9 ??C), temperature source Temporal, resp. rate 16, height 1.473 m (4' 10), weight 53.524 kg (118 lb), SpO2 96.00%. Exam: GENERAL: Comfortable. PSYCH: pleasant, oriented, No acute distress. HEENT: PERRLA. Normal conjunctiva, normal hearing, nasal mucosa and Oropharynx are normal. NECK: Supple, no neck vein distention, adenopathy or bruits, normal thyroid. HEART: Normal S1, S2 with no murmur, no pericardial rub, S3 or S4. LUNGS: Clear to auscultation, normal Respiratory effort. ABDOMEN: Soft, no hepatosplenomegaly, normal bowel sounds. EXTREMITIES: No pedal edema, +2 pulses bilateral and equal. Right shoulder dressing c/d/i SKIN: Dry to touch, No rash, wound or ulcerations. Data: Past 24 hours labs, studies, and imaging were reviewed. Lab 01/30/13 1300 01/29/13 1628 WBC -- 7.4 HGB -- 11.3* HCT -- 36.2 MCV -- 82 PLT 212 221 Lab 01/30/13 1300 01/29/13 1628 NA -- 139 POTASSIUM -- 4.0 CHLORIDE -- 101 CO2 -- 31 ANIONGAP -- 7 GLC -- 98 BUN -- 16 CR 0.64 0.77 GFRESTIMATED >90 73 GFRESTBLACK >90 88 KARY -- 8.9 Samantha Pal PA-C Pt discussed with Dr. Colorado who agrees with the care as discussed above. Adia Colorado MD - 01/30/2013 2:13 PM CDT Seen and examine patient. Agree with above findings, assessment, and plan. Adia Colorado MD documented in this encounter Nursing Notes Yessica Dominguez RN - 01/30/2013 11:02 AM CDT In recovery, elevated BP as high as 192/92. HR 96. Dr. Vargas paged to see if wants to treat HTN. Dr. Vargas at bedside and ordered Labetalol. Nano Alexander RN - 01/30/2013 7:12 AM CDT Patient states she is recovering from a 10 month episode of shingles on her right shoulder. Has beentreated for them. Does have a remaining red/rashy area on her right chest by her shoulder, which shesays is reddened from the surgical scrub. She states Dr. Farr is aware of this. Dr. Vargas made aware of this and Dr. Farr was called this morning to make sure he is ok with proceeding with nerve block and surgery due to this area where her shingles used to be. Dr. Farr ok with proceeding. documented in this encounter Miscellaneous Notes Pharmacy-Medication Teaching - Deborah Van [facility] - 02/02/2013 1:35 PM CDT Fawad Unger 1935 female [id number] Allergy: Food; Penicillins; Sulfa drugs; Animal dander; Aspirin; Atorvastatin; Claritin; Fosamax; Oxycodone; Perfume; Pollen extract; Smoke.; Wool fiber; and Petroleum jelly RX: Discharge Medication Consult by Pharmacist EDUCATION: Discharge Medication List Fawad Unger Home Medication Instructions DAYANA:[id number] Printed on:02/02/13 1335 Medication Information OMEPRAZOLE PO Take 20 mg by mouth 2 times daily (before meals) Levothyroxine Sodium (SYNTHROID PO) Take 25 mcg by mouth every morning albuterol (PROAIR HFA, PROVENTIL HFA, VENTOLIN HFA) 108 (90 BASE) MCG/ACT inhaler Inhale 2 puffs into the lungs 2 times daily beclomethasone (QVAR) 80 MCG/ACT Inhaler Inhale 2 puffs into the lungs 2 times daily FAMOTIDINE PO Take 20 mg by mouth 2 times daily CLONIDINE HCL PO Take 0.05 mg by mouth 2 times daily GABAPENTIN PO Take 300 mg by mouth 2 times daily TRAMADOL HCL PO Take 25 mg by mouth 2 times daily SERTRALINE HCL PO Take 50 mg by mouth every evening raloxifene (EVISTA) 60 MG tablet Take 60 mg by mouth every evening calcium-vitamin D (CALTRATE) 600-400 MG-UNIT per tablet Take 1 tablet by mouth daily multivitamin, therapeutic with minerals (MULTI-VITAMIN) TABS Take 1 tablet by mouth daily PREDNISONE PO 20 mg for 5 days, then 10 mg for 5 days, then 10 mg every other day for 5 days - for asthma flareup - PRN albuterol (2.5 MG/3ML) 0.083% nebulizer solution Take 1 ampule by nebulization every 6 hours as needed NEW MED Digel - takes 2 tablets or 2 teaspoons prn ONDANSETRON PO Take 4 mg by mouth every 6 hours as needed Follow with Meclizine MECLIZINE HCL PO Take 12.5 mg by mouth every 6 hours as needed LACTASE ENZYME PO Take 9,000 Units by mouth as needed Before ingesting any dairy product chlorpheniramine (CHLOR-TRIMETON) 4 MG tablet Take 2 mg by mouth every 6 hours as needed Takes for pollen allergy prn bisacodyl (DULCOLAX) 5 MG EC tablet Take 5 mg by mouth daily as needed Pharmacist assisted with medication reconciliation of discharge medications with CLINICAL REGISTERED NURSE medications. MDwas contacted with any questions/concerns - no concerns. Patient was not counseled or given any education materials as discharged to a TCU facility. Plan of Care - Phuong Leon PTA - 02/02/2013 11:44 AM CDT Problem: General Rehab Plan of Care Goal: Physical Therapy Goals The patient and/or their medical device sales representative will achieve their patient-specific goals related to the plan of care. The patient-specific goals include:1. Perform HEP of UE min A or less for ROM/strengthening progression after discharge. 2. Perform all bed mobility with Min Assist or less to allow safe negotiation of bedroom environment. 3. Ambulate at least 50 ft with SBA or less using assistive device properly as needed to decrease risk for falls during gait in the home environment. 4. Negotiate stairs with/without rail with min A or less to allow for safe access into living environment. 5. Transfer from sitting with min assist or less to allow for safe negotiation of living environment. Frequency: BID PT- discharged to TCU prior to session, per chart review no goals met Plan of Care - Yoni Morel PT - 02/02/2013 11:44 AM CDT Problem: General Rehab Plan of Care Goal: Physical Therapy Goals The patient and/or their medical device sales representative will achieve their patient-specific goals related to the plan of care. The patient-specific goals include:1. Perform HEP of UE min A or less for ROM/strengthening progression after discharge. 2. Perform all bed mobility with Min Assist or less to allow safe negotiation of bedroom environment. 3. Ambulate at least 50 ft with SBA or less using assistive device properly as needed to decrease risk for falls during gait in the home environment. 4. Negotiate stairs with/without rail with min A or less to allow for safe access into living environment. 5. Transfer from sitting with min assist or less to allow for safe negotiation of living environment. Frequency: BID PT- discharged to TCU prior to session, per chart review no goals met Physical Therapy Discharge Summary Reason for discharge: Discharged from facility. Progress towards goals: Goals not met. Barriers to achieving goals: discharge from facility. Recommendation(s): Continued therapy is recommended. Rationale/Recommendations: TCU. PT- discharged to TCU prior to session, per chart review no goals met Plan of Care - Bailey Live - 02/02/2013 9:25 AM CDT Problem: General Rehab Plan of Care Goal: Occupational Therapy Goals The patient and/or their medical device sales representative will achieve their patient-specific goals related to the plan of care. The patient-specific goals include: Pt to meet OT goals by 02/02/13... 1. Complete bedside commode transfer, Min A- Goal met 02/01/13. 2. Complete R UE shoulder exercises, following handout, I???lly. Goal deferred by OT as P.T. addressing 3. Complete total body dressing, Min A. Goal met 02/02/13. Frequency: daily OT: Patient with less nausea this morning, still c/o weakness and feeling shakey this am. Patient able to manage ADL's with Lyndon using compensatory strategies, needs cueing to consistantly incorporate.Patient needing CGA for functional transfers. Plans to transfer to TCU today. Occupational Therapy Discharge Summary Reason for discharge: Discharged from facility. Progress towards goals: Goals partially met. Barriers to achieving goals: limited tolerance for therapy and discharge from facility. Patient's progress post op limited by nausea. Recommendation(s): Continued therapy is recommended. Rationale/Recommendations: ofr ADL Retraining, compensatory strategies, home safety, DME.. Plan of Care - Altagracia Person RN - 02/02/2013 9:13 AM CDT Problem: Perioperative Period (Adult, Obstetrics) Goal: Prevent/Manage Potential Problems Outcome: Adequate for Discharge Date Met: 02/02/13 Afeb, vss, cms intact, dressing changed and incision looked good. Her shoulder is bruised and swollen. Up with sba of 1 and sling. Very anxious santo with changes. Going to TCU in [place]. Plan of Care - Heather Harp RN - 02/02/2013 7:34 AM CDT Problem: IP GENERAL POC-ADULT,OB,BEHAVIORAL FVCPM Goal: Individualization/Patient-Specific Goal (Adult,OB,Behavioral The patient and/or their medical device sales representative will achieve their patient-specific goals related to the plan of care. The patient-specific goals include: CTS Discharge planning for transfer to rehab facility. Outcome: Improving Pt did well. Pain controlled with tylenol tonight. Tramadol available however pt did not need it. Evert, BS present, passing flatus. Drsg CDI. Hand and shoulder slightly swollen. Sling on. in room. Plan to discharge to rehab today. Plan of Care - Eula Chong RN - 02/01/2013 10:22 PM CDT Problem: IP GENERAL POC-ADULT,OB,BEHAVIORAL FVCPM Goal: Individualization/Patient-Specific Goal (Adult,OB,Behavioral The patient and/or their medical device sales representative will achieve their patient-specific goals related to the plan of care. The patient-specific goals include: CTS Discharge planning for transfer to rehab facility. Outcome: Improving [facility] Progress Note Assessment Assessment: BP 127/53 Pulse 86 Temp 99.8 ??F (37.7 ??C) (Oral) Resp 16 Ht 1.473 m (4' 10) Wt 53.524 kg (118 lb) BMI 24.66 kg/m2 SpO2 94% Lungs: are clear, encouraged to CDB and use IS hourly BS: positive, passing flatus, tolerating a regular diet Urine: Voiding adequate amounts of clear yellow urine CMS: intact, denies calf tenderness, Pillow support under right arm and sling in place. Dressing is CDI. Pain: controlled with oral pain meds as needed. Ice to operative extremity. Activity: Up with SBA, tolerated sitting in chair for dinner. here with patient Plan of Care - Iliana Concepcion PTA - 02/01/2013 2:57 PM CDT Problem: General Rehab Plan of Care Goal: Physical Therapy Goals The patient and/or their medical device sales representative will achieve their patient-specific goals related to the plan of care. The patient-specific goals include:1. Perform HEP of UE min A or less for ROM/strengthening progression after discharge. 2. Perform all bed mobility with Min Assist or less to allow safe negotiation of bedroom environment. 3. Ambulate at least 50 ft with SBA or less using assistive device properly as needed to decrease risk for falls during gait in the home environment. 4. Negotiate stairs with/without rail with min A or less to allow for safe access into living environment. 5. Transfer from sitting with min assist or less to allow for safe negotiation of living environment. Frequency: BID PT: supine to sit with HOB raised with CGA with slow moving. Sit to stand with CGA. Ambulated 60' with AUTOMOBILE BRAKE BONDER on L. Slow steps with frequent stops pt appears a little confused at times. Seated R UE Rom toelbow and wrist with increased pain. Recommend discharge to TCU if able, otherwise AUTOMOBILE BRAKE BONDER and Home PT Plan of Care - Altagracia Person RN - 02/01/2013 2:45 PM CDT Problem: Perioperative Period (Adult, Obstetrics) Goal: Prevent/Manage Potential Problems Outcome: Improving Low grade temps, vss though BPs running higher than normal. CMS intact, dressing with dried drainage. Up with assist of 1 and sling. Less pain today, less nausea/vomiting using tramadol for pain. Better intake and slept for 3 hours today. Voiding well. Ambulated in halls twice today. SWS working with and pt on discharge planning. Plan of Care - Bailey Live - 02/01/2013 2:00 PM CDT Problem: General Rehab Plan of Care Goal: Occupational Therapy Goals The patient and/or their medical device sales representative will achieve their patient-specific goals related to the plan of care. The patient-specific goals include: Pt to meet OT goals by 02/02/13... 1. Complete bedside commode transfer, Min A- Goal met 02/01/13. 2. Complete R UE shoulder exercises, following handout, I???lly 3. Complete total body dressing, Min A Frequency: daily OT: Patient with limited activity tolerance due to nausea and pain. Patient completing functional transfers with SBA, does need Lyndon to manage LE self cares, toileting and clothing management using Ae.Patient needs Lyndon for UE self cares as well. Patient needing to return to bed due to nausea and nsgaddressing nausea and pain with meds. Continue to recommend TCU at discharge. Plan of Care - Iliana Concepcion PTA - 02/01/2013 9:16 AM CDT Problem: General Rehab Plan of Care Goal: Physical Therapy Goals The patient and/or their medical device sales representative will achieve their patient-specific goals related to the plan of care. The patient-specific goals include:1. Perform HEP of UE min A or less for ROM/strengthening progression after discharge. 2. Perform all bed mobility with Min Assist or less to allow safe negotiation of bedroom environment. 3. Ambulate at least 50 ft with SBA or less using assistive device properly as needed to decrease risk for falls during gait in the home environment. 4. Negotiate stairs with/without rail with min A or less to allow for safe access into living environment. 5. Transfer from sitting with min assist or less to allow for safe negotiation of living environment. Frequency: BID PT: supine to sit with Min A with increased pain. Pt slow as she is nauseated once sitting up EOB. Sit to stand with Min A. Ambulated 6' to commode with AUTOMOBILE BRAKE BONDER. Commode transfer with CGA with independent with cares Min A for dressing. Ambulated 45' with CGA and AUTOMOBILE BRAKE BONDER on LUE. Pt shaky and nauseated throughout walk. RUE wrist and elbow ROM with AAROM x10. Recommend discharge to TCU secondary to increased pain, nausea for increased independece. If unable to go to TCU secondary to not having a qualifying stay would recommend AUTOMOBILE BRAKE BONDER and home therapies Plan of Care - Katey Valderrama RN - 02/01/2013 2:12 AM CDT Problem: IP GENERAL POC-ADULT,OB,BEHAVIORAL FVCPM Goal: Individualization/Patient-Specific Goal (Adult,OB,Behavioral The patient and/or their medical device sales representative will achieve their patient-specific goals related to the plan of care. The patient-specific goals include: CTS Discharge planning for transfer to rehab facility. Outcome: Improving Vital signs stable. Pain under control tonight, able to sleep. Assisted to bedside commode to void, voided 500ml. No c/o nausea. Rated pain at 6. CMS intact in right upper extremity. Plan of Care - Patricia Delvalle RN - 01/31/2013 11:35 PM CDT Problem: IP GENERAL POC-ADULT,OB,BEHAVIORAL FVCPM Goal: Plan of Care Review (Adult,OB,Behavioral) The patient and/or their medical device sales representative will communicate an understanding of their plan of care. Outcome: No Change Vital signs stable. Pt remained lethargic all shift till approx 9pm. Assist pt up to beside cpmmode w/ use of gait belt and max assist of 2. Was able to void. Needed constant ques given for transferring. No narcs given this shift- only tranadol and tylenol for pain. Pt was fed by spouse- poor intake. 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 Pt c/o severe pain in the shoulder,gave IV Dilaudid first then po after pt tried to eat but she did experience nausea and had large emesis after lunch [mostly water]. Had SL Zofran this am and IV Zofran in pm. The pain was better midmorning but then was overmedicated by pm. Pt very sensitive to meds. CMS intact to right hand and arm, dressing to shoulder with small amount of dried drainage. with pt, Plan of Care - Thu Goldstein OT - 01/31/2013 12:24 PM CDT Problem: General Rehab Plan of Care Goal: Occupational Therapy Goals The patient and/or their medical device sales representative will achieve their patient-specific goals related to the plan of care. The patient-specific goals include: Pt to meet OT goals by 02/02/13... 1. Complete bedside commode transfer, Min A 2. Complete R UE shoulder exercises, following handout, I???lly 3. Complete total body dressing, Min A Frequency: daily Outcome: Therapy, progress towards functional goals is fair OT: Order received, chart reviewed, evaluation complete and treatment initiated; pt lives with supportive in independent long term, previously I with ADLs; pt currently limited by R shoulder surgery, increased pain, decreased balance, strength; pt experiencing significant pain this AM, increased time for mobility however able to stand at EOB to [place] underwear and return to bed, BP monitored remained stable 184/78 and 181/68, pt denied dizziness, just pain main limiting factor at time; Recommend pt discharge to TCU Plan of Care - Candy Crain, PT - 01/31/2013 10:12 AM CDT Problem: General Rehab Plan of Care Goal: Physical Therapy Goals The patient and/or their medical device sales representative will achieve their patient-specific goals related to the plan of care. The patient-specific goals include:1. Perform HEP of UE min A or less for ROM/strengthening progression after discharge. 2. Perform all bed mobility with Min Assist or less to allow safe negotiation of bedroom environment. 3. Ambulate at least 50 ft with SBA or less using assistive device properly as needed to decrease risk for falls during gait in the home environment. 4. Negotiate stairs with/without rail with min A or less to allow for safe access into living environment. 5. Transfer from sitting with min assist or less to allow for safe negotiation of living environment. Frequency: BID PT- Eval completed. Pt in 8-10/10 pain resting in bed. Pt appears to be having muscle spasms causingher to cry out in pain. Mobility not attempted this morning as pt had been up x 2 this morning. Pt able to participate in UE and LE exercises. Recommend pt discharge to TCU for strength, ROM and mobility. Plan of Care - Katey Valderrama RN - 01/31/2013 6:14 AM CDT Problem: IP GENERAL POC-ADULT,OB,BEHAVIORAL FVCPM Goal: Individualization/Patient-Specific Goal (Adult,OB,Behavioral The patient and/or their medical device sales representative will achieve their patient-specific goals related to the plan of care. The patient-specific goals include: Outcome: No Change Temp 100, B/P elevated at 161/73, 151/67. Painful and rating pain at 7, Dilaudid given IV with some relief, able to sleep brief intervals. CMS intact right upper extremity. C/o slight nausea, relief with Zofran X 1. Cold pack cont to right shoulder. Plan of Care - Patricia Delvalle RN - 01/30/2013 11:39 PM CDT Problem: IP GENERAL POC-ADULT,OB,BEHAVIORAL FVCPM Goal: Plan of Care Review (Adult,OB,Behavioral) The patient and/or their medical device sales representative will communicate an understanding of their plan of care. Outcome: No Change V s s - Shoulder drsg clean dry and intact. Sling present. Good cms to surg hand- Has full sensation- Rt hand grasp slightly weaker than left. Casas draining clear yellow urine. Fair po intact this evening. Very selective for her po intake. Concerned about becoming nauseated- taking saltine crackers w/ meds. Sat up on edge of bed- c/o feeling light headed. Returned to bed and stated felt better. Ocasional c/o of nausea. Medicated x1 w/ Zofran. Pt very hesitant in taking meds for pain. Plan of Care - Altagracia Person RN - 01/30/2013 2:24 PM CDT Problem: Perioperative Period (Adult, Obstetrics) Goal: Prevent/Manage Potential Problems Outcome: Improving Pt arrived from PACU on a cart and floated over to her bed. IV infusing into left arm, casas cath patent O2 on at 3L NC keeping sats in high 90's. Block in effect so numbness and tingling in right arm and hand with minimal movement. Sling on. Dressing to shoulder clean and dry, no drain. No pain. DId have nausea on arrival but it eased with rest. Tolerating ice chips and sips. at bedside and will be staying with her. Oriented to room, equipment and orders. Frequent VS started and pt instructed to do postop exercises with each VS. Op Note - Evy Farr MD - 01/30/2013 10:47 AM CDT PREOPERATIVE DIAGNOSIS: Severe degenerative arthritis with glenoid erosion, right shoulder. POSTOPERATIVE DIAGNOSIS: Severe degenerative arthritis with glenoid erosion, right shoulder. PROCEDURE: Right reverse total shoulder arthroplasty using the Biomet comprehensive total shoulder system with a 22 mm glenoid baseplate and 36 mm glenosphere, 9 mm mini press-fit humeral stem and a standard 42 mm humeral tray with a standard polyethylene humeral insert. SURGEON: Chika Greene MD ANESTHESIA: General with scalene block. ESTIMATED BLOOD LOSS: 100. COMPLICATIONS: None noted. INDICATIONS: Fawad Unger is a 74-year-old woman with severe progressive pain in her right shoulder, refractory to conservative treatment. X-rays demonstrated more of an erosive picture and MRI scan indicated, although her cuff was intact, it was attenuated and she had significant medial superior erosion of the anterior glenoid. CT scan confirmed this. There was a large cyst in the glenoid vaultas well. I discussed with her in detail operative versus nonoperative treatment. She felt as though she had failed conservative treatment and wished to proceed with more definitive surgical treatment. I discussed the advantages, disadvantages of primary total shoulder versus reverse total shoulder arthroplasty. It was my feeling that based on the amount of glenoid wear, the anteversion and the difficulty correcting this with the attenuated cuff, she would best be served with a reverse total shoulderarthroplasty which would give us the most predictable results for surgery. The potential risks, benefits, complications as well as expected postoperative course and recovery were all discussed in detail and informed consent was obtained. DESCRIPTION OF PROCEDURE: The patient was taken to the preoperative area where scalene block was placed in the right upper extremity by the anesthesiologist. She was then taken to the operating room where general anesthetic was obtained. She had been given 900 mg clindamycin intravenously for antibiotic prophylaxis as she had an allergy to penicillin. Casas catheter was placed. She was then placed inthe beach chair position and her right shoulder was confirmed as the operative shoulder and prepped and draped in the usual fashion. Timeout was performed confirming the right shoulder was the operative shoulder and her range of motion was external rotation 60, elevation 130 on the table. An anterior a pproach to the shoulder was performed through approximately 4-inch incision extending from just inferior to the coracoid and going laterally and distally. Full-thickness skin flaps were created. The deltopectoral interval was identified. The cephalic vein was protected and retracted medially with the p ectoralis and the deltoid was retracted laterally. Subdeltoid space was entered and freed up. The conjoined tendon was identified and the subscapularis recess was freed up. The axillary nerve was palpated and protected throughout the rest of the case. The biceps tendon had significant fluid around it and I did a soft tissue tenotomy to the superior aspect of the pectoralis and then amputated the tendon and released it through the bicipital groove into the joint. I then carefully released the subscapularis from the lesser tuberosity, taking off its sleeve tagging it along with the capsule as I went.The capsule was released off the inferior neck of the glenoid and humeral head was then delivered out through the incision. This gave me excellent exposure of the humeral head which was completely devoid of any articular cartilage and again this appeared more like an erosive or inflammatory type arthritis. I removed the osteophytes and then began reaming the canal and accepted a size 9 stem. I prepared the humeral canal and reamed up to a 10. I then used the intramedullary cutting guide and resected the head in 30 degrees of retroversion along its articular surface. I then prepared the humerus using the broach and again 30 degrees retroversion up to a size 9, which gave me excellent fit and fill. I left the broach in place and placed a metal cap over the osteotomized humerus and retracted it posteriorly. I then freed up circumferentially the subscapularis, retracted that medially and she was able to expose the anterior glenoid. I then released the capsule and retracted the axillary nerve inferiorly and released inferiorly and also posteriorly with #2 Bankart retractor, one anterior and one posteriorly as well as the inferior retractor. I had excellent exposure of the glenoid as anticipated, she had significant anterior wear and some anteversion of the glenoid. I then used the bur to remove some bone posteriorly and placed a guide pin in the center of the glenoid again more along the anterior neck. I then reamed taking more posterior than anterior due to my attempt to correct the version ofthe glenoid implant. I reamed a fair amount off posteriorly and felt that the posterior aspect of the base plate would be uncovered slightly anteriorly, but I elected to stop here and placed a tricortical bone graft underneath it. It was only a few millimeters. I then took the mini base plate and contoured a piece of the osteotomized humeral head like an orange slice which fit behind the anterior aspect of the glenoid baseplate and this was impacted into the glenoid. I held this bone graft in place while I fixed the glenoid baseplate with the central screw. I then fixed it circumferentially with 4 locking screws nicely capturing and the anterior screw and capturing the anterior bone graft. I then placed a 36 mm glenosphere with just 1.5 mm of inferior offset as the glenoid was already very inferior. Once this was intact, I returned my attention to the humerus. I trialed with a standard humeral insert and found that there was good stability and range of motion. I then removed the trial humeral components, placed the real 9 mm mini humeral stem with excellent fit and fill. I then put together the standard humeral tray with a standard 42 mm polyethylene insert together on the back table and impacted it into the humeral stem in the correct version. I relocated the humerus. Again, it was excellent stability and tension on both the conjoined tendon and the deltoid and then carefully repaired the subscapularis to the lesser tuberosity with two #2 FiberWire sutures in a modified Amador-Ryne fashion through drill holes in the bone oversewn with multiple 0 Vicryl sutures. At the completion of this her external rotation was 30, abduction 90, elevation 130 on the table. She was very stable. I confirmed all the glenosphere placement as well as the size and fit of the humerus on fluoroscopy. I then carefully irrigated the wound with normal saline. I closed the deltopectoral interval with 0 Vicryl suture. The skin was closed with 2-0 Vicryl and running 3-0 Vicryl and Steri-Strips. Sterile compressive dressing was applied. She was then placed in a sling and awakened and transferred to recovery room in stable condition. Postoperative plan will be admit her to the hospital. We can begin active assist range of motion of the elbow and wrist and passive pendulum to the shoulder. There were no noted complications. Sponge and needle counts were correct. EVY FARR MD MT: [id number] Name: FAWAD UNGER Account: [id number] : 1935 Procedure Date: 01/30/2013 Document: [id number] Brief Op Note - Evy Farr MD - 01/30/2013 10:33 AM CDT [facility] Orthopedic Brief Operative Note Pre-operative diagnosis: Right shoulder degenerative joint disease Post-operative diagnosis: Same Procedure: Procedure(s): REVERSE ARTHROPLASTY SHOULDER Surgeon: Evy Farr MD Derrick Barge Operator(s): none Anesthesia: Combined General with Interscalene Block Estimated blood loss: 100cc Blood transfusion: No transfusion was given during surgery Drains: None Specimens: None Complications: None Condition: Stable Comments: See dictated operative report for full details Pharmacy-Admission Medication History - Jade Soliz RPH - 01/22/2013 7:23 PM CDT Med rec completed by pre adm RN documented in this encounter Plan of Treatment Pending Results Name Type Priority Associated Diagnoses Date/Ti me XR Shoulder Right Port Imaging 01/30 10:10 AM CDT G/E 2 Views XR Surgery JESUSITA L/T 5 Imaging Routine 2012 10:11 AM CDT Min Fluoro w Stills Scheduled Orders Name Type Priority Associated Diagnoses Order S chedule XR Shoulder Right Port Imaging One t mary imaging for 1 G/E 2 Views Occurrences sta rting 01/30/2013 unti l 01/30/2013 XR Surgery JESUSITA L/T 5 Imaging Routine One ti me imaging for 1 Min Fluoro w Stills Occurren ron starting 01/30/2013 unti l 01/30/2013 documented as of this encounter Procedures Procedure Name Priority Date/Time Associated Diagnosis Comme nts PLATELET COUNT Routine 02/02/2013 6:05 AM Results for this CDT procedure are i n the results section. CBC WITH PLATELETS & Routine 02/01/2013 6:25 AM R esults for this DIFFERENTIAL CDT procedure are i n the results section. GLUCOSE Routine 02/01/2013 6:25 AM Results f or this CDT procedure are i n the results section. HEMOGLOBIN Routine 01/31/2013 5:53 AM Results f or this CDT procedure are i n the results section. GLUCOSE Routine 01/31/2013 5:53 AM Results f or this CDT procedure are i n the results section. HOSPITALIST IP Routine 01/30/2013 3:31 PM CONSULT CDT PLATELET COUNT Routine 01/30/2013 1:00 PM Results for this CDT procedure are i n the results section. CREATININE Routine 01/30/2013 1:00 PM Results f or this CDT procedure are i n the results section. ARTHROPLASTY, 01/30/2013 7:40 AM Right shoulder SHOULDER, TOTAL, CDT degenerative joint REVERSE disease Special Needs Will NOT answer to Ella. Kary Celestin or Rebeca'10.5 / 113.5 lb - stated documented in this encounter Results Platelet count (02/02/2013 6:05 AM CDT) P athologist Signature Platelet Count 178 150 - 450 [place] [id number]/L [facility] Specimen Anatomical Collection Method Collection Time Receive d Time (Source) Location / / Volume Laterality Blood specimen 02/02/2013 6:05 AM 013 6:23 (specimen) CDT AM CDT Evy Farr MD LAB - BLOOD ORDERABLES Performing Organization Address City/State/ZIP Code Phon e Number [facility] [address] [place], [place] [address] [facility] (ABNORMAL) CBC with platelets differential (02/01/2013 6:25 AM CDT) [facility] gist Method Time Signature WBC 12.4 (H) 4.0 - [place] 11.0 [facility] 10e9/L [facility] RBC Count 4.28 3.8 - 5.2 [place] 10e12/L [facility] Hemoglobin 11.0 (L) 11.7 - [place] 15.7 g/dL [facility] Hematocrit 34.3 (L) 35.0 - [place] 47.0 % [facility] MCV 80 78 - 100 [place] fl [facility] MCH 25.7 (L) 26.5 - [place] 33.0 pg [facility] MCHC 32.1 31.5 - [place] 36.5 g/dL [facility] RDW 16.2 (H) 10.0 - [place] 15.0 % [facility] Platelet Count 216 150 - 450 [place] 10e9[facility] Diff Method Automated [facility] % Neutrophils 74.8 % [facility] % Lymphocytes 11.3 % [facility] % Monocytes 11.9 % [facility] % Eosinophils 1.3 % [facility] % Basophils 0.3 % [facility] % Immature 0.4 % [place] Granulocytes [facility] Absolute 9.2 (H) 1.6 - 8.3 [place] Neutrophil 10e9/L [facility] Absolute 1.4 0.8 - 5.3 [place] Lymphocytes 10e9/L [facility] Absolute 1.5 (H) 0.0 - 1.3 [place] Monocytes 10e9/L [facility] Absolute 0.2 0.0 - 0.7 [place] Eosinophils 10e9L [facility] Absolute 0.0 0.0 - 0.2 [place] Basophils 10e9/L [facility] Abs Immature 0.1 0 - 0.4 [place] Granulocytes e9/L [facility] Specimen Anatomical Collection Method Collection Time Receive d Time (Source) Location / / Volume Laterality Blood specimen 02/01/2013 6:25 AM 013 6:56 (specimen) CDT AM CDT Adia Colorado MD LAB - BLOOD ORDERABLES Performing Organization Address [facility] Phon e Number [facility] [address] [place], [place] [address] [facility] (ABNORMAL) Glucose (02/01/2013 6:25 AM CDT) P athologist Signature Glucose 108 (H) 60 - 99 [place] mg/dL [facility] Specimen Anatomical Collection Method Collection Time Receive d Time (Source) Location / / Volume Laterality Blood specimen 02/01/2013 6:25 AM 013 6:56 (specimen) CDT AM CDT Evy Farr MD LAB - BLOOD ORDERABLES Performing Organization Address [facility] e [place] [address], [place] [address] [facility] LAB (ABNORMAL) Hemoglobin (01/31/2013 5:53 AM CDT) P athologist Signature Hemoglobin 10.5 (L) 11.7 - 15.7 [place] g/dL [facility] Specimen Anatomical Collection Method Collection Time Receive d Time (Source) Location / / Volume Laterality Blood specimen 01/31/2013 5:53 AM 013 6:10 (specimen) CDT AM CDT Evy Farr MD LAB - BLOOD ORDERABLES Performing Organization Address [facility] e Number [facility] [address] [place], [place] [address] [facility] (ABNORMAL) Glucose (01/31/2013 5:53 AM CDT) P athologist Signature Glucose 112 (H) 60 - 99 [place] mg/dL [facility] Specimen Anatomical Collection Method Collection Time Receive d Time (Source) Location / / Volume Laterality Blood specimen 01/31/2013 5:53 AM 013 6:10 (specimen) CDT AM CDT Evy Farr MD LAB - BLOOD ORDERABLES Performing Organization Address City/[facility] Phon e Number [facility] [address], [place] [address] [facility] Hospitalist IP Consult (01/30/2013 3:31 PM CDT) Evy Farr MD IP CONSULT ORDERABLES Creatinine (01/30/2013 1:00 PM CDT) athologist Signature Creatinine 0.64 0.52 - [place] 1.04 mg/dL [facility] GFR Estimate >90 >60 [place] mL/min/1.[address] LAB GFR Estimate If >90 >60 [place] Black mL/min/1.[address] [place] [address] LAB Specimen Anatomical Collection Method Collection Time Receive d Time (Source) Location / / Volume Laterality Blood specimen 01/30/2013 1:00 PM 013 1:05 (specimen) CDT PM CDT Evy Farr MD LAB - BLOOD ORDERABLES Performing Organization Address City/[facility]/ZIP Code Phon e Number [facility] [address], [place] [address] [facility] Platelet count (01/30/2013 1:00 PM CDT) athologist Signature Platelet Count 212 150 - 450 [place] 10e9/L [facility] Specimen Anatomical Collection Method Collection Time Receive d Time (Source) Location / / Volume Laterality Blood specimen 01/30/2013 1:00 PM 013 1:05 (specimen) CDT PM CDT Evy Farr MD LAB - BLOOD ORDERABLES Performing Organization Address City/[facility]/ZIP [facility] Phon e Number [facility] [address], [place] [address] [facility] documented in this encounter Visit Diagnoses Diagnosis Shoulder arthritis - Primary Unspecified arthropathy, shoulder region documented in this encounter Administered Medications Inactive Administered Medications - up to 3 most recent administrations Medication Order MAR Action Action Date Dose Rate Site acetaminophen (OFIRMEV) 10 Given 01/30/2013 11:31 AM 1,000 mg 400 mL/hr mg/mL infusion 1,000 mg CDT 1,000 mg, Intravenous, at 400 mL/hr, ONCE PRN, other, if pain relief not effective after narcotic dose, Administer over 15 Minutes, Starting on Tue01/30/13 at 1037, For 1 dose, Maximum dose of acetaminophen is 4000 mg from all sources., PACU acetaminophen (TYLENOL) tablet 1,000 mg Given 02/02/2013 1:39 AM CDT 1,000 mg 1,000 mg, Oral, 3 TIMES DAILY RT, First dose on Tue01/31/13 at 1715, Maximum acetaminophen dose from all sources = 75 mg/kg/day not to exceed 4 gram Given 02/01/2013 6:33 PM CDT 1,000 mg Given 02/01/2013 9:54 AM CDT 1,000 mg albuterol (PROAIR HFA, PROVENTIL HFA, Given 02/02/2013 7:59 AM C DT 2 puffs VENTOLIN HFA) inhaler 2 puff 2 puff, Inhalation, 2 TIMES DAILY, First dose on Tue01/30/13 at 1215 Given 02/01/2013 8:15 PM CDT 2 puffs Given 02/01/2013 8:19 AM CDT 2 puffs beclomethasone (QVAR) 80 MCG/ACT inhaler 2 Given 02/02/2013 8:00 AM CDT 2 puffs puff 2 puff, Inhalation, 2 TIMES DAILY, First dose on Tue02/01/13 at 0900, Patient may use own supply after verified by pharmacy. Given 02/01/2013 8:18 PM CDT 2 puffs Given 02/01/2013 8:19 AM CDT 2 puffs clindamycin (CLEOCIN) IVPB 900 mg New Bag 01/30/2013 10:43 PM CDT 900 mg 50 mL/hr Routine, 900 mg, Intravenous, EVERY 8 HOURS, First dose on Tue01/30/13 at 1500, For 2 doses, First post-op dose due 8 hours after intra-op dose, see eMAR. , Indications: Perioperative Pharmacoprophylaxis, Post-procedure New Bag 01/30/2013 2:30 PM CDT 900 mg 50 mL/hr cloNIDine (CATAPRES) tablet 0.05 mg Given 02/02/2013 7:22 AM CDT 0.05 mg 0.05 mg, Oral, 2 TIMES DAILY, First dose on Tue01/30/13 at 2100, Hold if SBP <110 Given 02/01/2013 6:33 PM CDT 0.05 mg Given 02/01/2013 8:14 AM CDT 0.05 mg enoxaparin (LOVENOX) injection 40 mg Given 02/02/2013 6:26 AM CDT 40 mg 40 mg, Subcutaneous, EVERY 24 HOURS, First dose on Tue01/31/13 at 0500, Check to make sure start date/time is 12-24 hours post op unless documented complication, AND no sooner than 22 hours post op if spinal anesthesia used. Continue until discharge to home. HOLD if platelet count falls below 50% of baseline or <100,000/??L and notify , Post-procedure Given 02/01/2013 5:14 AM CDT 40 mg Abdom inal Tissue Given 01/31/2013 5:00 AM CDT 40 mg Abdom inal Tissue famotidine (PEPCID) tablet 20 mg Given 02/02/2013 6:19 AM CDT 20 mg 20 mg, Oral, 2 TIMES DAILY, First dose on Tue01/30/13 at 1215 Given 02/01/2013 6:34 PM CDT 20 mg Given 02/01/2013 6:38 AM CDT 20 mg fluticasone (FLOVENT DISKUS) 250 mcg/puff Given 01/31/2013 8:25 PM CDT 250 mcg inhaler 250 mcg 250 mcg (1 puff), Inhalation, 2 TIMES DAILY, First dose on Tue01/30/13 at 1215, Formulary autosub for QVAR inhaler Given 01/31/2013 7:30 AM CDT 250 mcg Given 01/30/2013 8:18 PM CDT 250 mcg gabapentin (NEURONTIN) capsule 300 mg Given 02/02/2013 7:22 AM CDT 300 mg 300 mg, Oral, 2 TIMES DAILY, First dose on Tue01/30/13 at 2100 Given 02/01/2013 6:33 PM CDT 300 mg Given 02/01/2013 8:14 AM CDT 300 mg HYDROmorphone (DILAUDID) injection 0.2 m g Given 01/31/2013 7:41 AM CDT 0.2 mg 0.2 mg, Intravenous, EVERY 2 HOURS PRN, severe pain, or if patient unable to take PO, Starting on Tue01/30/13 at 1212, Hold while on PRESS LOADER., Post-procedure Given 01/31/2013 5:00 AM CDT 0.2 mg Given 01/31/2013 2:32 AM CDT 0.2 mg Left Arm HYDROmorphone (DILAUDID) tablet 1-2 mg Given 01/31/2013 12:11 PM CDT 1 mg 1-2 mg, Oral, EVERY 3 HOURS PRN, moderate to severe pain, Starting on Tue01/30/13 at 1212, Hold while on PRESS LOADER or with regular IV opioid dosing., Post-procedure Given 01/31/2013 8:39 AM CDT 1 mg Given 01/30/2013 9:59 PM CDT 1 mg hydrOXYzine (ATARAX) tablet 10 mg Given 01/31/2013 9:52 AM CDT 10 mg 10 mg, Oral, EVERY 6 HOURS PRN, other, adjuvant pain, Starting on Tue01/30/13 at 1212, Post-procedure labetalol (NORMODYNE,TRANDATE) injection 5 mg Given 01/30/2013 11:47 AM CDT 5 mg 5 mg, Intravenous, EVERY 5 MIN PRN, high blood pressure, systolic bp > 160, Starting on Tue01/30/13 at 1107, For 10 doses, PACU Given 01/30/2013 11:09 AM CDT 5 mg lactase (LACTAID) tablet 9,000 Units Given 02/02/2013 8:00 AM CDT 9,000 Units 9,000 Units, Oral, 3 TIMES DAILY WITH MEALS, First dose on Tue01/30/13 at 1800, Non-formulary: patient to use own medication Given 02/01/2013 6:46 AM CDT 9,000 Units Given 01/31/2013 5:00 PM CDT 9,000 Units lactated ringers infusion New Bag 01/31/2013 2:33 AM CDT 1,000 mLs 75 mL/hr Left Arm at 75 mL/hr, Intravenous, CONTINUOUS, Change to saline lock when PO well tolerated., Post-procedure, Starting on Tue01/30/13 at 1215, Until Paulina 02/01/13 at 1547 New Bag 01/30/2013 12:22 PM CDT 1,000 mLs 75 mL/hr levothyroxine (SYNTHROID, LEVOTHROID) tablet Given 6:19 AM CDT 25 mcg 25 mcg 25 mcg, Oral, EVERY MORNING BEFORE BREAKFAST, First dose (after last modification) on Tue01/31/13 at 0730 Given 02/01/2013 6:39 AM CDT 25 mcg Given 01/31/2013 6:30 AM CDT 25 mcg omeprazole (priLOSEC) capsule 20 mg Given 02/02/2013 6:19 AM CDT 20 mg 20 mg, Oral, 2 TIMES DAILY BEFORE MEALS, First dose on Tue01/30/13 at 1630 Given 02/01/2013 5:24 PM CDT 20 mg Given 02/01/2013 6:39 AM CDT 20 mg ondansetron (ZOFRAN) injection 4 mg Given 01/31/2013 1:27 PM CDT 4 mg 4 mg, Intravenous, EVERY 6 HOURS PRN, nausea, vomiting, Administer over 2-5 Minutes, Starting on Tue01/30/13 at 1212, This is Step 1 of nausea and vomiting protocol. If nausea not resolved in 15 minutes, go to Step 2 (Prochlorperazine)., Post-procedure Given 01/30/2013 11:22 PM CDT 4 mg ondansetron (ZOFRAN-ODT) disintegrating tablet Given 0 02/02/2013 8:51 AM CDT 4 mg 4 mg 4 mg, Oral, EVERY 6 HOURS PRN, nausea, Starting on Tue01/30/13 at 1212, This is Step 1 of nausea and vomiting protocol. If nausea not resolved in 15 minutes, go to Step 2 (Prochlorperazine). Do not push through foil backing. Peel back foil and gently remove. Place on tongue immediately. Administration with liquid unnecessary , Post-procedure Given 02/01/2013 5:07 PM CDT 4 mg Given 02/01/2013 9:52 AM CDT 4 mg senna-docusate (SENOKOT-S;PERICOLACE) Given 02/02/2013 7:54 AM C DT 1 tablet 8.6-50 MG per tablet 1-2 tablet 1-2 tablet, Oral, 2 TIMES DAILY, First dose on Tue01/30/13 at 1215, Start with 1 tablet PO BID, If no bowel movement in 24 hours, increase to 2 tablets po BID. Hold for loose stools. Preferred agent for constipation related to opioids., Post-procedure Given 02/01/2013 6:35 PM CDT 1 tablet Given 02/01/2013 8:14 AM CDT 1 tablet sertraline (ZOLOFT) tablet 50 mg Given 02/01/2013 6:34 PM CDT 50 mg 50 mg, Oral, EVERY EVENING, First dose on Tue01/30/13 at 2000 Given 01/31/2013 6:36 PM CDT 50 mg Given 01/30/2013 6:05 PM CDT 50 mg traMADol (ULTRAM) tablet 25 mg Given 02/02/2013 7:25 AM CDT 25 mg 25 mg, Oral, EVERY 6 HOURS PRN, moderate to severe pain, Starting on Tue01/31/13 at 1641 Given 02/01/2013 9:05 PM CDT 25 mg Given 02/01/2013 2:38 PM CDT 25 mg documented in this encounter Active and Recently Administered Medications Times are shown in CDT. Scheduled Medication Order 01/31/2013 02/01/2013 02/02/2013 acetaminophen (TYLENOL) tablet 1,000 mg (CANCELED) 183 7 (Given - Provider: Patricia Delvalle RN) 0131 (Given - Provider: Katey gambino RN)0954 (Given - Provider: Altagracia Person, HEENA)1833 (Given - Provider: Eula Chong RN) 0139 (Given - Provider: Rain Soto LPN)1000 (See Alternative - Provider: Orders Generic Provider) 1,000 mg, Oral, 3 TIMES DAILY, First dos e on Tue01/31/13 at 1715, Maximum acetaminophen dose from all sources = 75 mg/kg/day not to exceed 4 gram albuterol (PROAIR HFA, PROVENTIL HFA, VENTOLIN HFA) in haler 2 puff (CANCELED) 0730 (Given - Provider: Altagracia Person, HEENA)2023 (Given - Provider: Abraham Marshall, RT) 08 (Given - Provider: Iliana zelaya RT)2014 (Given - Provider: Alphonso Gregorio, RT) 0759 (Given - Provider: Iliana zelaya, RT) 2 puff, Inhalation, 2 TIMES DAILY, First dose on Tue01/30/13 at 1215 beclomethasone (QVAR) 80 MCG/ACT inhaler 2 puff (CANCELED) 0819 (Given - Provider: Iliana Avelar, RT)2018 (Given - Provider: Alphonso Gregorio, RT) 0800 (Given - Provider: Iliana Avelar, RT) 2 puff, Inhalation, 2 TIMES DAILY, First dose on Tue02/01/13 at 0900, Patient may use own supply after verified by pharmacy. cloNIDine (CATAPRES) tablet 0.05 mg (CANCELED) 0955 (G iven - Provider: Altagracia Person RN)0956 (Canceled Entry - Provider: Altagracia Person RN)1837 (Given - Provider: Patricia Delvalle RN) 0814 (Given - Provider: Altagracia Person RN)1833 (Given - Provider: Eula Chong RN) 0722 (Given - Provider: Rain Soto LPN) 0.05 mg, Oral, 2 TIMES DAILY, First dose on Tue01/30/13 at 2100, Hold if SBP <110 enoxaparin (LOVENOX) injection 40 mg (CANCELED) 0500 ( Given - Provider: Katey Valderrama RN) 0514 (Given - Provider: Katey Valderrama RN) 0626 (Given - Provider: Rain Soto LPN) 40 mg, Subcutaneous, EVERY 24 HOURS, Fir st dose on Tue01/31/13 at 0500, Check to make sure start date/time is 12-24 hours post op unless documented complication, AND no sooner than 22 hours post op if s fermin anesthesia used. Continue until di scharge to home. HOLD if platelet count falls below 50% of baseline or <100,000/??L and notify , Post-procedure famotidine (PEPCID) tablet 20 mg (CANCELED) 0630 (Give n - Provider: Katey Valderrama RN)1700 (Not Given - Provider: Patricia Petricka, RN - Reason: Patient/family refused) 0638 (Given - Provider: Katey gambino RN)1834 (Given - Provider: Eula Chong RN) 0619 (Given - Provider: Rain Soto LPN)0730 (Canceled Entry - Provider: Altagracia Person RN) 20 mg, Oral, 2 TIMES DAILY, First dose on Tue01/30/13 at 1215 fluticasone (FLOVENT DISKUS) 250 mcg/puff inhaler 250 mcg (CANCELED) 0730 (Given - Provider: Altagracia Person RN)202 (Given - Provider: Abraham Marshall, RT) 0820 (Not Given - Provider: Iliana Avelar RT - Reason: Other - Comment: Pt has home Qvar.) 1 puff = 250 mcg, Inhalation, 2 TIMES DA FRACISCO, First dose on Tue01/30/13 at 1215, Formulary autosub for QVAR inhaler gabapentin (NEURONTIN) capsule 300 mg (CANCELED) 0954 (Given - Provider: Altagracia Person RN)1835 (Given - Provider: Patricia Delvalle RN) 0814 (Given - Provider: Altagracia Person RN)1833 (Given - Provider: Eula Chong RN) 0722 (Given - Provider: Rain Soto LPN) 300 mg, Oral, 2 TIMES DAILY, First dose on Tue01/30/13 at 2100 lactase (LACTAID) tablet 9,000 Units (CANCELED) 0748 ( Given - Provider: Altagracia Person RN)1130 (Not Given - Provider: Altagracia Person RN - Reason: Other - Comment: pt had no milk products at lunch)1700 (Given - Provider: Patricia Delvalle RN) 0646 (Given - Provider: Katey gambino RN - Comment: Used own supply)1130 (Canceled Entry - Provider: Altagracia Person RN)1835 (Not Given - Provider: Eula Chong RN - Reason: Patient/family refused) 0800 (Given - Provider: Altagracia Person RN) 9,000 Units, Oral, 3 TIMES DAILY WITH ME ALS, First dose on Tue01/30/13 at 1800, Non-formulary: patient to use own medication levothyroxine (SYNTHROID, LEVOTHROID) tablet 25 mcg (C ANCELED) 0630 (Given - Provider: Katey Valderrama RN) 0639 (Given - Provider: Katey Valderrama RN) 0619 (Given - Provider: Rain Soto LPN)0730 (Canceled Entry - Provider: Altagracia Person RN) 25 mcg, Oral, EVERY MORNING BEFORE BREAKFAST, First do se on Tue01/31/13 at 0730 omeprazole (priLOSEC) capsule 20 mg (CANCELED) 0630 (G iven - Provider: Katey Valderrama RN)1728 (Given - Provider: Patricia Delvalle RN) 0639 (Given - Provider: Katey Valderrama RN)1724 (Given - Provider: Eula Chong RN) 0619 (Given - Provider: Rain Soto LPN)0730 (Canceled Entry - Provider: Altagracia Person RN) 20 mg, Oral, 2 TIMES DAILY BEFORE MEALS, First dose on Tue at 1630 senna-docusate (SENOKOT-S;PERICOLACE) 8. 6-50 MG per tablet 1-2 tablet (CANCELED) 0956 (Not Given - Provider: Altagracia mercado RN - Reason: Nausea)1930 (Not Given - Provider: Patricia Delvalle RN - Reason: Patient/family refused) 0814 (Given - Provider: Altagracia Person RN)1835 (Given - Provider: Eula Chong RN)2000 (Canceled Entry - Provider: Eula Chong RN) 0754 (Given - Provider: Altagracia Person RN)0900 (Canceled Entry - Provider: Altagracia Person RN) 1-2 tablet, Oral, 2 TIMES DAILY, First d ose on Tue01/30/13 at 1215, Start with 1 tablet PO BID, If no bowel movement in 24 hours, increase to 2 tablets po BID. Hold for loose stools. Preferred agent for constipation related to opioids., Post-procedure sertraline (ZOLOFT) tablet 50 mg (CANCELED) 183 (Give n - Provider: Patricia Delvalle, HEENA) 183 (Given - Provider: Eula Chong RN) 50 mg, Oral, EVERY EVENING, First dose on e 01/30/13 at 2000 Continuous Medication Order 01/31/2013 02/01/2013 02/02/2013 lactated ringers infusion (CANCELED) 0233 (New Bag - P rovider: Katey Valderrama, RN) at 75 mL/hr, Intravenous, CONTINUOUS, [place] to saline lock when PO well tolerated., Post-procedure PRN Medication Order 01/31/2013 02/01/2013 02/02/2013 HYDROmorphone (DILAUDID) injection 0.2 mg (CANCELED) 0 017 (Given - Provider: Katey Valderrama RN)0232 (Given - Provider: Katey Valderrama, RN)0500 (Given - Provider: Katey Valderrama, HEENA)0741 (Given - Provider: Altagracia Person, HEENA) 0.2 mg, Intravenous, EVERY 2 HOURS PRN, Starting Tue01/30/13 at 1212, Until Tue02/02/13 at 1239, severe pain, or if patient unable to take PO, Post-procedure, Hold while on PRESS LOADER. HYDROmorphone (DILAUDID) tablet 1-2 mg (CANCELED) 0839 (Given - Provider: Altagracia Person RN)1211 (Given - Provider: Altagracia Person, HEENA) 1-2 mg, Oral, EVERY 3 HOURS PRN, moderat e to severe pain, Starting Tue01/30/13 at 1212, Hold while on PRESS LOADER or with regular IV opioid dosing., Post-procedure hydrOXYzine (ATARAX) tablet 10 mg (CANCELED) 0952 (Giv en - Provider: Altagracia Person, HEENA) 10 mg, Oral, EVERY 6 HOURS PRN, other, a djuvant pain, Starting Tue01/30/13 at 1212, Post-procedure ondansetron (ZOFRAN) injection 4 mg (CANCELED) 0729 (S ee Alternative - Provider: Altagracia Person RN)1327 (Given - Provider: Altagracia Person RN) 0952 (See Alternative - Provider: Altagracia Person RN)1707 (See Alternative - Provider: Eula Chong RN) 0851 (See Alternative - Provider: Laverne Person RN) 4 mg, Intravenous, EVERY 6 HOURS PRN, na usea, vomiting, for 2 Minutes, Starting Tue01/30/13 at 1212, This is Step 1 of nausea and vomiting protocol. If nausea not resolved in 15 minutes, go to Step 2 (Prochlorperazine)., Post-procedure ondansetron (ZOFRAN-ODT) disintegrating tablet 4 mg (C ANCELED) 0729 (Given - Provider: Altagracia Person RN)1327 (See Alternative - Provider: Altagracia Person RN) 0952 (Given - Provider: Altagracia mariscal RN)1707 (Given - Provider: Eula Chong RN) 0851 (Given - Provider: Altagracia mariscal RN) 4 mg, Oral, EVERY 6 HOURS PRN, nausea, S tarting Tue01/30/13 at 1212, This is Step 1 of nausea and vomiting protocol. If nausea not resolved in 15 minutes, go to Step 2 (Prochlorperazine). Do not push th rough foil backing. Peel back foil and g ently remove. Place on tongue immediately. Administration with liquid unnecessary , Post-procedure traMADol (ULTRAM) tablet 25 mg (CANCELED) 1728 (Given - Provider: Patricia Delvalle RN)2329 (Given - Provider: Patricia Delvalle, HEENA) 0513 (Given - Provider: Katey Valderrama RN)1438 (Given - Provider: Altagracia Person RN)2105 (Given - Provider: Eula Chong RN) 0725 (Given - Provider: Rain Soto LPN) 25 mg, Oral, EVERY 6 HOURS PRN, Starting 01/31/13 at 1641, moderate to severe pain documented in this encounter Care Teams Barrel Turner Relationship Specialty Start Date End Date Arlin López PCP - General Internal Medicine 01/18/13 11/14/17 [facility] [address] [place] [address] documented as of this encounter
--- OUTSIDE RECORDS SUMMARY | 2021-12-23 12:35 | XMS_ITS | Encounter Summary ---
:1935 Author Organization [facility] Address [address] [facility] [place] [address] Care Team Providers Name Role Phone Loren Beyer MD Primary Care Provider [phone] Reason for Visit Auth/Cert Specialty Diagnoses / Procedures Referred By Contact Refer red To Contact Gastroenterology Diagnoses DYSPHAGIA Sh Endoscopy Procedures COMBINED ESOPHAGOSCOPY, GASTROSCOPY, DUODENOSCOPY (EGD), DILATATION [address] [phone] Phone: Referral ID Status Reason Start Date Expiration Date Visits Requ ested Visits Authorized [id number] 1 1 Encounter Details Date Type Department Care Team Description 11/25/2017 Anesthesia Event [facility] Phuong Arias ANESTHESIOLOGY [address] [id number] [facility] Samantha Baird, [employer] SUPERVISOR [employer] [address] [id number] [id number] [phone] Anesthesia Record Procedure Summary Procedure Name Responsible Anesthesia Start Anesthesia Stop Anesthesiologist Time Time ESOPHAGOGASTRODUODENOSCOPY WITH Phuong Arias 11/25/17 0807 11/25/17 0845 DILATION (MAC) (N/A Esophagus) Events Date Time Event Comment 11/25/2017 0807 An Start 0807 An Start Data 0817 AN INCISION 0824 0839 an stop data 0845 An Stop Electronically s igned by Samantah Baird on November 25, 2017 8:45 AM Name Total lidocaine 2% 60 mg ondansetron 2mg/mL 4 mg propofol (DIPRIVAN) injection 10 mg/mL vial 50 mg propofol (DIPRIVAN) injection 10 mg/mL vial 111.16 mg dexmedetomidine (PRECEDEX) 4 mcg/mL bolus 20 mcg sodium chloride 0.9% 300 mL Agents Name NO HELIOX O2 N2O Air Exp Sevoflurane Exp Isoflurane Exp Desflurane Exp N2O O2 Delivery Device Ins Sevoflurane Ins Isoflurane Ins Desflurane O2 Auxiliary Blood No blood administrations on file. Lines, Drains, and Airways Type Details Placement Removal Incision/Surgical Site 01/30/13; 1007; Right; 01/30/13 1007 by Shoulder Gildardo Franz RN Peripheral IV 11/25/17; 0721; 20 G; 11/25/17 0721 by 11/25/17 0953 by Right; Upper forearm; Joy Dowell RN Mewes, Susan Chlorhexkarina Hernandez RN documented in this encounter Social History Tobacco Use Types Packs/Day Years Used Date Never Smoker Smokeless Tobacco: Never Used Alcohol Use Standard Drinks/Week Comments No 0 (1 standard drink = 0.6 oz pure alcoho l) Sex Assigned at Date Recorded Not on file documented as of this encounter OR Notes Anesthesia Postprocedure Evaluation - Phuong Arias - 11/25/2017 12:54 PM CDT Patient: Fawad Unger Procedure(s): ESOPHAGOGASTRODUODENOSCOPY WITH DILATION (MAC) - Wound Class: II-Clean Contaminated #[id number] savory - Wound Class: II-Clean Contaminated Diagnosis:DYSPHAGIA Diagnosis Additional Information: No value filed. Anesthesia Type: MAC Note: Anesthesia Post Evaluation Patient location during evaluation: PACU Patient participation: Able to fully participate in evaluation Level of consciousness: awake Pain management: adequate Airway patency: patent Cardiovascular status: acceptable Respiratory status: acceptable Hydration status: acceptable PONV: none Anesthetic complications: None Last vitals: Vitals: 11/25/17 0910 11/25/17 0920 11/25/17920 BP: 173/69 166/69 Resp: 28 27 SpO2: 98% 100% Electronically Signed By: Phuong Arias November 25, 2017 12:54 PM Anesthesia Preprocedure Evaluation - Willie Barrios MD - 11/25/2017 8:07 AM CDT Anesthesia Evaluation . Pt has had prior anesthetic. 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 . (-) COPD and sleep apnea Neurologic: Comment: Post herpetic neuralgia Cardiovascular: (+) Dyslipidemia, hypertension----. : . . . :. . METS/Exercise Tolerance: >4 METS Hematologic: - neg hematologic ROS Musculoskeletal: - neg musculoskeletal ROS GI/Hepatic: Comment: No symptoms currently, but worry it will start if can't eat soon. (+) GERD Symptomatic, Renal/Genitourinary: Endo: Comment: hyponatremia (+) thyroid problem hypothyroidism, . Psychiatric: Comment: dysthymia (+) psychiatric history anxiety Infectious Disease: (-) Recent Fever Malignancy: Other: Physical Exam Normal systems: dental Airway Mallampati: II TM distance: >3 FB Neck ROM: full Dental Cardiovascular Rhythm and rate: regular and normal Pulmonary breath sounds clear to auscultation Anesthesia Plan History & Physical Review History and physical reviewed and following examination; no interval change. ASA Status: 3 . NPO Status: > 8 hours Plan for MAC Discussed benefits of MAC vs GA. Given asymptomatic GERD currently and hisroty of severe asthma prefers MAC. Discussed DNR status and patient and understand this will be temporarily reversed for this procedure. Postoperative Care Consents Anesthetic plan, risks, benefits and alternatives discussed with: Patient.. . documented in this encounter Miscellaneous Notes Anesthesia Care Transfer Note - Samantha Baird APRN CRNA - 11/25/2017 8:45 AM CDT Patient: Fawad Unger Procedure(s): ESOPHAGOGASTRODUODENOSCOPY WITH DILATION (MAC) - Wound Class: II-Clean Contaminated - Wound Class: II-Clean Contaminated Diagnosis: DYSPHAGIA Diagnosis Additional Information: No value filed. Anesthesia Type: MAC Note: Airway :Room Air Patient transferred to:Phase II Comments: Patient spontaneously breathing and following commands. VSS. Report given to RN.Handoff Report: Identifed the Patient, Identified the Reponsible Provider, Reviewed the pertinent medical history, Discussed the surgical course, Reviewed Intra-OP anesthesia mangement and issues during anesthesia, Set expectations for post-procedure period and Allowed opportunity for questions and acknowledgement of understanding Vitals: (Last set prior to Anesthesia Care Transfer) PA[employer] P[employer] VITALS 11/25/2017 0809 - 11/25/2017 0845 11/25/2017 Pulse: 63 Ht Rate: 61 SpO2: 99 % Resp Rate (set): 10 Electronically Signed By: Samantha Baird APRN CRNA November 25, 2017 8:45 AM documented in this encounter Plan of Treatment Not on filedocumented as of this encounter Visit Diagnoses Not on filedocumented in this encounter Administered Medications Inactive Administered Medications - up to 3 most recent administrations Medication Order MAR Action Action Date Dose Rate Site dexmedetomidine (PRECEDEX) 4 mcg/mL Bolus 11/25/2017 8:14 AM CDT 8 mcg bolus 200 mcg, CONTINUOUS PRN, Starting on Tue11/25/17 at 0809, Anesthesia Intra-op New Bag 11/25/2017 8:09 AM CDT 12 mcg lidocaine injection 2% (MDV) Given 11/25/2017 8:14 AM CDT 60 mg PRN, Starting on Tue11/25/17 at 0814, Anesthesia Intra-op ondansetron (ZOFRAN) injection Given 11/25/2017 8:14 AM CDT 4 mg PRN, nausea, vomiting, Administer over 2-5 Minutes, Starting on Tue11/25/17 at 0814, Anesthesia Intra-op propofol (DIPRIVAN) Rate/Dose Change 11/25/2017 8:28 125 mcg/kg/min 3 8.8 mL/hr injection 10 mg/mL vial AM CDT CONTINUOUS PRN, Starting on Tue11/25/17 at 0809, Anesthesia Intra-op New Bag 11/25/2017 8:09 AM CDT 100 mcg/kg/min 31 mL/hr propofol (DIPRIVAN) injection 10 mg/mL v ial Given 11/25/2017 8:30 AM CDT 10 mg PRN, Starting on Tue11/25/17 at 0811, Anesthesia Intra-op Given 11/25/2017 8:14 AM CDT 20 mg Given 11/25/2017 8:11 AM CDT 20 mg sodium chloride 0.9% infusion New Bag 11/25/2017 8:07 AM CDT CONTINUOUS PRN, Anesthesia Intra-op, Starting on Tue11/25/17 at 0807, Until Tue11/25/17 at 0845 documented in this encounter Care Teams Systems Software Specialist Relationship Specialty Start Date End Date Loren Beyer MD PCP - General Family Practice 11/15/17 [place] [address] documented as of this encounter
--- OUTSIDE RECORDS SUMMARY | 2021-12-23 12:35 | XMS_ITS | Encounter Summary ---
:1935 Author Organization [facility] Address [address] [place] [address]. [place] [address] Care Team Providers Name Role Phone Unavailable Primary Care Provider Unavailable Encounter Details Date Type Department Care Team Description 08/25/2012 Results Only Ear, Nose and Throat Cynthia Sanchez MD Clinic [address] [facility] [address], [address] [place] [address] Toni Mcgrath Building [address] [facility] [address] [facility] [address] [place], [place] [phone] Social History Tobacco Use Types Packs/Day Years Used Date Never Assessed Sex Assigned at Date Recorded Not on file documented as of this encounter Plan of Treatment Scheduled Orders Name Type Priority Associated Diagnoses Order S chedule MR Digital Archive Imaging Ordered: 08/25/2012 Non-Ramírez documented as of this encounter Visit Diagnoses Not on filedocumented in this encounter
--- OUTSIDE RECORDS SUMMARY | 2021-12-23 12:35 | XMS_ITS | Continuity of Care Document ---
:1935 Author Organization [facility] Address [address] [address] [place] [address] Phone Care Team Providers Name Role Phone Link Juan FALK Unavailable Unavailable Allergies, Adverse Reactions, Alerts Substance Reaction Status Criticality codeine Active No Information loratadine Active No Information aspirin Unknown Active No Information ATORVASTATIN CALCIUM Unknown Active No Informat ion alendronate sodium Unknown Active No Informatio n petrolatum,white Rash Active No Information Sulfa (Sulfonamide Antibiotics) Unknown Active No Information Penicillins Unknown reaction Active No Information oxycodone Hallucinations Active No Information WARNIN allergy(ies) could not be collected because the type is not supported. Please contact [facility] practice for further details. Medications Medication Instructions Dosage Effective Dates Status Comment s (start - stop) Flovent HFA 220 inhale 2 puff by 440 MCG - Active mcg/actuation aerosol inhalation route 2 inhaler times every day ChlorTabs 4 mg tablet take 1 tablet by - Activ e oral route as needed omeprazole 40 mg take 1 capsule by 40 MG - Active capsule,delayed ORAL route every release day before a meal Ventolin HFA 90 inhale 2 puff by - Active mcg/actuation aerosol inhalation route inhaler every 4 - 6 hours as needed ALBUTEROL SULFATE solution by Not Available - Active (unknown strength) nebulizer; PRN Herbal antibioltic for Not Available - Active medications/supplemen respiratory ts (unknown strength) infection or cold for 10 days. Usually when post-nasal drip from cold; PRN PREDNISONE (unknown 20 mg for 5 days; Not Available - Act cole strength) 10 mg for 5 days; 10 mg every other day for 5 days; for asthma flare-ups; PRN CALCIUM 600-VIT D3 take 1 by Oral Not Available - Active (unknown strength) route every day multivitamin tablet take 1 tablet by - Active oral route every day with food LACTASE (unknown take with dairy Not Available - Active strength) products; PRN Antacid 550 mg-110 mg take as needed - Active chewable tablet CLONIDINE HCL take half of a .5 Not Available - Active (unknown strength) mg tablet 2 times everyday ondansetron 4 mg disolve 1 tablet - Active disintegrating tablet under tougue as needed Synthroid 25 mcg take 1 tablet by 25 MCG - Active tablet oral route every day sertraline 50 mg take 1 Tablet by 50 MG - Active tablet ORAL route every day Evista 60 mg tablet take 1 tablet by 60 MG - Active oral route every day Procedures Procedure Date Offic/outpt E&m Estab [facility] [place] Ugi Endo; W/insrt Guide Wire Ugi Endo; W/bx 1/mx Offic/outpt E&m Estab [facility] [place] 2 Offic/outpt E&m Estab [facility] 2 Offic/outpt E&m Estab [facility] 2 Offic/outpt E&m Estab [facility] [place] 2 Offic/outpt [facility] Offic[facility] Offic/outpt E&m Estab [facility] [place] Offic/outpt E&m [facility] Advance Directives Directive Yes / No Effective Date File Name No Information Encounters Encounter Practice Location Reason(s) Diagnoses Date Provider Provide rs Description For Visit Copied on Encounter [facility] No Information Link Digestive [facility] [address] [facility], Endoscopy 8 [address] [facility] [address], [address] [facility] [place], [place], [place], [address], [id number], [place], [place], tel:+ [phone] , [place]. tel:+ [phone] Offic/outpt [place] [facility] GI Gastroesophageal Edelmira FALK Referring E&m Estab Digestive Symptoms reflux disease Trudy Driver ovider: [facility], or without [address] Concerns esophagitisGastro [facility] hanna [address], (chief [address] , [address] [place] complaint) (primary) [place], [address], [place], [place], hypertension [address] [id number], [place] , [place], [place], [address]. tel:+ [phone] tel:[phone] , [place]. [id number] tel: [phone] [facility] No Information Mikie FALK Referr ing Digestive [facility]. Provider: Health PA, [facility] [address] [facility] [address], Riaz FALK, [address] [place], [address], [place], [place], [address], [address] [id number], [place] , [place], [place], [address]. tel:+ [phone] tel:[phone] , [place]. [id number] tel: [phone] Offic/outpt [facility] GI Dysphagia, Edelmira FALK Re ferring E&m Estab Digestive Symptoms unspecified Trudy Provi boo: [facility], or typeGastroesophag [address] Concerns eal reflux [place]. [address], (chief disease, [facility] esophagitis [place], [place], [place], presence not 500, [id number], specifiedFull [place] incontinence of [place], [place], tel: feces [phone] , [place]. tel: [phone] Offic/outpt [place] [facility] GI Gastroesophageal Edelmira FALK Referring E&m Estab Digestive Symptoms reflux disease, Trudy fallder: [facility], or esophagitis 8 . [address] Concerns presence not [facility] [address], (chief [facility] Riaz FALK, 20 [facility] complaint) a, unspecified [place], [address], [place], [place], typeEssential [address], [address] [id number], (primary) [place] , [place], [place], [address]. tel: [phone] tel:[phone] , [place]. [id number] tel: [phone] Offic/outpt [facility] GI GastroparesisChro Jul- Louise martinez Referring E&m Estab Digestive Symptoms raul 0-201 Provider: [facility], or constipationHeart 6 Jany R eferral [address] Concerns burnEssential E. [address]. [address], (chief (primary) [facility] complaint) hypertension Street [place], [place], [place], [place] [id number], 500, [place] tel: is, [place], [id number] , [place]. tel: [phone] Offic/outpt [facility] GI Irritable Colon Jaylen FALK Referring E&m Estab Dig[facility]ive Clinic Symptoms 7-201 Corey. Provider: [facility], or 5 [address] Concerns [place]. [address], (chief [facility] complaint) NE, [place], [place], [address], [id number], [place], [place], tel: [phone] , [place]. tel: [phone] Offic/outpt [facility] GI GastroparesisDiet Marianna geller Referring E&m Estab [facility] Symptoms wilner 0-201 Provider: [facility], or Surveil/counselEl 4 Yon. Re ferral PO Box Concerns ev Bl Pres W/o [address]. [address], (chief Hypertn [facility] complaint) Street s, [place], Additional [place], [place] [id number], Narrative 500, [place] (chief [facility] tel:+ complaint) is, [place], [phone] , [place]. tel: [phone] Offic/outpt [facility] Abd Pain Mar-2 Clement matos E&m [facility] Generalized 1-201 Provider : [facility] G[facility]ZAL, Kinjal Marvin. Arlin [address] Maribel FALK [address], [place], [address] [facility], [place], [place], [address] [id number], [facility], [facility] Practice tel: [place], [place], Int Med, [phone] [facility]. , [place], tel: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 Provider: [facility] GHAZAL, DiseaseConstipati 4 [address] Juana chapman [address] on Unspecified [facility] [address], [place], [address] [place], [place], [address] [place] [address], [facility], [place], Practice tel: [phone] Int Med, [id number] , [facility] tel: , [place], [phone]. tel:[phone] Offic/outpt [facility] Dyspepsia/acid Mar-0 Clement delcid E&m [facility] Peptic Disease 3-201 Provide r: [facility] Spruceling GHAZAL, Kinjal Marvin. Arlin [address] Maribel FALK [address], [place], [address] [facility], [place], [place], [place] [id number], [address] [place] [address] Practice tel: [place], [place], Int Med, [phone] [id number] [facility] , [place], tel: [phone] tel:[phone] Family History Family Member Type Diagnosis Age At Onset Sister Problem (finding) Thyroid disorder Sister Problem (finding) asthma Daughter Problem (finding) gallbladder disease First degree family history Problem (finding) GERD First degree family history Problem (finding) alcoholism First degree family history Problem (finding) Autoimmune conditi on Immunizations Vaccine Date Status Comments Influenza, injectable, administered Source: O ther Provider quadrivalent, preservative free, 3 yrs or older Pneumococcal conjugate PCV 13 administered So urce: Other Provider Influenza virus vaccine, administered Source: Other Provider injectable, quadrivalent, split virus, preservative free, 3 years or older Fluarix Quad [id number] Flu (split) (3 yrs or older) administered Not e: Invalid documented admin date was . ; Source: Other Pr ovider Pneumo (2 yrs or older)(PPV) administered Not e: Invalid documented admin date was . ; Source: Other Provider Payers Payer name Insurance type Covered green party ID Authorization(s ) [employer] 16 [id number] Social History Type Description Quantity Date Captured Comments Sex Female Smoking Status No Information Chief Complaint And Reason For Visit No Information Reason For Referral Reason For Referral No Information Plan Of Treatment Date Type Action Status Goal Lifestyle education regarding di et completed Referral Ordered: ordered EGD With Dilation Appointment date/timeframe: 11/25/2017 History Of Present Illness Encounter Date Complaint History Of Present I llness GI Symptoms or Concerns This is an 82-ye ar-old woman who presents in followup for reflux symptoms and swallowing trouble. I last saw her in clinic in mid October. She had an underlyin g history of gastroparesis made in [place] many years ago, with an associated chronic l ow appetite and postprandial epigast pamela symptoms. She had worsening symptoms a nd required an increase from her baseline of omeprazole 20 mg twice daily up to omeprazo le 40 mg twice daily. She did not tolerate the pill form of sucralfate and so we changed to the liquid form. Unfortunately, she f elt that it was too gritty for her to tolerate. I had recommended upper endoscopy because tania jensen was having trouble with swallowing. There wa s food sticking in her mid chest and then episo ran of severe chest tightness that sound ed like esophageal spasm. My colleague perform ed her endoscopy and she was found to have a small hiatal hernia. There is a mild Schatzki's ring that was dilated. She had some benign appearing gastric polyps and esophageal biops i GI Symptoms or Concerns This is a lorena allison 82-year-old woman who presents in followup for reflux and dysphagia. She has an underlyin g diagnosis of gastroparesis made [place] many years ago. She has a chronicall y low appetite related to this with some postp randial epigastric symptoms. She is alejandro ing omeprazole 20 mg twice daily, although has had worsening symptoms in her chest and even a glenn brash every morning. Her primary provider increased her omeprazole to 40 mg twice daily . She did not tolerate the pill form of sucralf ate, so we changed it to the liquid form. Thi s has been far easier to take and she does fe el that it helps with breakthrough symptom s. Unfortunately, she feels it has worsene d constipation. She continues to have in termittent food sticking in her mid chest. Sh camila also feels at times that there is a pouch in the right neck where food will become lodged a nd she needs to rinse it down with liquid. Tania camila reports that she is losing the enamel on the back sides of her teeth. She had one e pi GI Symptoms or Concerns This is an 81-ye ar-old woman who presents regarding worsening reflux symptoms and dysphagia. She last saw my colleague in 2015. She has a history of chronic reflux as well as a diagnosis of gastr oparesis made in [place] many years ago. She has a chronically low appetite related to this and also has a tendency to her refl ux disease. She typically takes omeprazole 20 mg twice daily. About once per week, she has ne eded generic Maalox to help with some break through symptoms. Unfortunately, 6 day s ago, she had an episode of awakening with re flux in her mouth and a sense of swishing in her upper abdomen with pain in the epigastr ium. Ever since she has had consistent reflu x symptoms. She saw her primary provider who increased her omeprazole to 40 mg twice daily . They also added sucralfate and altho ugh she cannot tolerate the pill, she is mix ing it with water and it does seem to help wi th symptoms. She does not have any clear dieta ry triggers. She does not consume any caffeine or alco GI Symptoms or Concerns Ally abraham is a pleasant 79-year-old female whom I saw in clinic today for discussion of chroni c GI complaints. Her main issues today are of constipation, nausea, and epigastric pain. All these symptoms have been long lasting and the n presented for years. She does have a history of gastroparesis that was diagnosed in [place] a number of years ago. However, she does re port frequent postprandial nausea. Sometimes tania jensen can have nausea just after she eats or dr inks anything. She rarely vomits. She also has some upper abdominal pain that accompanies the nausea. Occasionally, she has more diffuse abd ominal pain.She also reports constipation , which is a chronic problem for her. Her stools are hard. She can go up to three to fo ur days without having a bowel movement. She has been using a stool softener in the even ing. She has also been taking two teaspoons of MiraLax and that made her stools softer. S he does also report some incontinence of stoo l. This happens about twice a GI Symptoms or Concerns Ally Torres ) is a 79-year-old woman that we are seeing with t he change in bowel habits. She states that she was doing well, but have been treated for ref lux with omeprazole. Most recently in October, tania jensen went off this medicine, started Prevacid. It was after this that she developed some bloat ing, abdominal discomfort, and looser stools.Th is is in contrast to a normal constipation that she has. These symptoms were associ ated with the sense of bloating and fullnes s.When seen by her physician, she was p laced on MiraLax, which she subsequently sto pped as her stools have gotten looser.She is concerned that this could be medication, relat ing with this we are seeing her. She desc ribes a history of over 50 years of variable emily wel habits. Usually, she is constipated but t his does seem to alternate with diarrhea. She w ill have several bowel movements in the mor glenn and then is able to function during the course of the day. With her symptoms, she hannon s had multiple CT scans GI Symptoms or Concerns The symptoms elisa jensen reported as being mild. The symptoms occur daily . The location is stomach. She states the sympt oms are chronic. Additional Narrative Ms. Unger is a 78 -year-old woman with a history of gastropar esis, chronic constipation, reflux disease, asthma, postherpetic neuralg ia, hypertension, and depression who is se en for symptoms of abdominal pain, refl ux, and bloating.She has suffered with abdomi nal pain for nearly 30 years. She describes as a constant aching discomfort in the bi lateral upper abdominal quadrants, like a ba nd across her midsection. The symptoms fluctua ting and tend to get worse after eating, partic ularly after eating spicy foods. After eating she tends to feel particularly full wi th bloating and a sense of excess belching. She also develops nausea along with this pain ; this is more common eating as well. The symptoms have been longstanding as ment ioned; however, progressive worsenin g recently.We talked primarily today abou t her systemic complaints (nausea, fatigue, up set stomach, poor appetite, dizzyness) . She seems to believe her symptom have mproved somewhat with treatment of hyponatremia.She had been maintained and omeprazole but twice daily. Otherwise, she has been using Zofran as needed.Gastric emptying study: abnormal (res ults unavailable)CT Abd (July 2013): 11mm g allstone, otherwise leandro.CT head (2013) apparently unremarkable, this r eport is unavailable.Upper endoscopies (2013) demonstrated a small hiatal hernia, fundal gland polyps, otherwise normal inc luding gastric and duodenal biopsies.Es ophagram (July 2010) suggested possible r eflux, otherwise normal without any evidence of strictures or masses within the esophagus . She has had two other upper endoscopies (2009 and October 2005) reports unavailable. Functional Status Date Functional Assessment No Information Instructions Date Instruction Additional Informati on I recommend that we slowly wean down Rel ated to Gastroesophageal reflux her omeprazole back to 20 mg twice disea se without esophagitis daily as tolerated. I recommend against use of metoclopramide and she and her expressed understanding and agree with me. We discussed the possibility for seeing a dietitian to talk about dietary changes to help with her gastroparesis. This is typically a low fat, low fiber diet using small meals throughout the day. There are some dietary restrictions she already has for reflux disease, but I informed her that our dietitian can work with her on several gastrointestinal issues at one time if needed. We will plan to follow up on an as-needed basis depending on her overall symptoms. I have asked her to keep in touch in the coming weeks, especially if symptoms are to worsen again. We will proceed with upper endoscopy Rel ated to Dysphagia, unspecified at [facility] to type include possible dilation and esophageal biopsies. If this is unremarkable, we discussed the possibility for an esophagram to evaluate for motility disorder or diverticulum. We will change her omeprazole to Nexium twice daily and she may continue her sucralfate. I will plan to see her in clinic after the above testing to see how she responds. Down the road, we may consider a [facility] referral, if her insurance would pay for it, to address some of her issues with incontinence and constipation. I recommend continuing her omeprazole Re lated to Gastroesophageal reflux 40 mg twice daily and sucralfate. I dise ase, esophagitis presence not gave her prescription for the liquid spe cified form of sucralfate to see if that is better tolerated for her. We will plan to follow up in about a month in clinic. I have asked her to even contact me in a couple of weeks to be sure that she is doing okay. Ultimately once her reflux symptoms resolve, I would like to wean her back down to her baseline omeprazole dosing. If she continues to have dysphagia despite the above treatment, I would recommend an upper endoscopy to include possible dilation and esophageal biopsies. 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 We discussed that this could certainly increase reflux symptoms in general and the best diet for her would be typically be a low fat, low fiber diet as tolerated, with small frequent meals. 1. Continue lansoprazole 30 mg p.o. Rela debo to Gastroparesis b.i.d.2. Continue Gaviscon p.r.n.3. Zofran as scheduled in the morning and then other times during the day p.r.n.4. When feeling more nauseous, go to a clear liquid diet and advance as tolerated.5. Constipation, high fiber diet, and gastroparesis handouts given.6. High fiber diet with the use of a fiber supplement as needed.7. Continue stool softeners as needed, MiraLax p.r.n.8. Follow up in two to three months.Thank you for allowing me to participate in the care of your patient. Please feel free to call with any questions or concerns. gastroparesis Related to Heartburn constipation Related to Heartburn Most of the patient's symptoms are Relat ed to Irritable Colon functional. It is entirely possible the Prevacid could be causing the symptoms as historically this seems coincident with the issue, first thing I would do stop the medication.She has had CT scans in the past and I would agree that holding off on a CT scan would be totally fine and at the present time, there is no indication.If the symptoms resolve, no other workup is in order. The symptoms are most consistent with irritable bowel and given the 50-year history, I would defer other workup, and ask the patient to follow up with her primary physician Dr. Lópze in [place]. 1.) I would a agree with Reglan Related to Gastroparesis (metoclopramide) starting at 5mg twice-daily (prior to meals). I will often use this as 2 weeks on & 2 weeks off. If this is ineffective the dose can be increased.2.) You could also consider Domperidone 10mg twice daily. This would have to be ordered through [facility] however. Gastroparesis Folder Related to Gastropa resis Lifestyle education regarding diet Relat ed to Dietary surveillance and counseling Assessments Type Assessment Date No Information Patient Care Teams Name Effective Dates (start - stop) Status M embers No Information
--- OUTSIDE RECORDS SUMMARY | 2021-12-23 12:35 | XMS_ITS | Encounter Summary ---
:1935 Author Organization [facility] Address [facility] [place] [address] Care Team Providers Name Role Phone Arlin López Primary Care Provider Reason for Visit Reason Onset Date Comments Referral 02/02/2013 MTM Encounter Details Date Type Department Care Team Description 02/02/2013 Telephone [facility] Pharm D Hilton López Referral (MTM) Project [facility] [address] [place] [address] [address] [place], [place] [id number] [place] [address] [phone] (Wo rk) Social History Tobacco Use Types Packs/Day Years Used Date Never Smoker Alcohol Use Standard Drinks/Week Comments No 0 (1 standard drink = 0.6 oz pure alcoho l) Sex Assigned at Date Recorded Not on file documented as of this encounter Miscellaneous Notes Telephone Encounter - Maame Marie - 02/02/2013 2:00 PM CDT MTM referral from: Transitions of Care (recent hospital discharge or ED visit) [facility] referral outreach attempt #1 on February 02, 2013 at 2:00 PM Outcome: Left Message with patients , patient went into a care center and they will call backat a later date if they are interested in participating in the program Nancy Marie MT Coordinator documented in this encounter Plan of Treatment Not on filedocumented as of this encounter Visit Diagnoses Not on filedocumented in this encounter Care Teams Care Navigator Relationship Specialty Start Date End Date Arlin López PCP - General Internal Medicine 01/18/13 11/14/17 [facility] [address] [place] [address] documented as of this encounter
--- OUTSIDE RECORDS SUMMARY | 2021-12-23 12:35 | XMS_ITS | Encounter Summary ---
:1935 Author Organization [place] Address [facility]ly [facility] [place] [address] Care Team Providers Name Role Phone Arlin López Primary Care Provider Encounter Details Date Type Department Care Team Description 07/18/2016 Telephone [facility] Nurse Jana Heath, RN [facility] [id number] [employer] [place] [id number] Social History Tobacco Use Types Packs/Day Years Used Date Never Smoker Alcohol Use Standard Drinks/Week Comments No 0 (1 standard drink = 0.6 oz pure alcoho l) Sex Assigned at Date Recorded Not on file documented as of this encounter Miscellaneous Notes Telephone Encounter - Jana Heath RN - 07/18/2016 7:46 PM CST Call Type: Triage Call Presenting Problem: Caller is patient's reporting that has been seen 2 times in the ED for hip pain that radiates to abdomen and down her leg; Is able to bear weight and walk a short distance, sitting is painful. is to see ortho this week. Pain is not under control on tramadol. BP elevated to > 210/ 90 tonight and feels it is due to pain. Requested contacting marble mason provider Dr. Doran for advice; contacted by [facility] and advises ED evaluation for BP and pain management. states they will comply, nedds to arrange ride. Advised EMS trnsport due to pain and states he will take that into consideration. Triage Note: Guideline Title: Abdominal or Pelvic Pain Recommended Disposition: See ED Immediately Original Inclination: Wanted to speak with a nurse Override Disposition: Intended Action: Go to Hospital / ED Physician Contacted: No Pain described as deep, boring, or tearing ? YES Swallowed alkali or button battery ? NO Swallowed sharp object (pin, needle, piece of glass) ? NO Following a therapeutic OR elective ? NO New or worsening signs and symptoms that may indicate shock ? NO AND injury to abdomen ? NO AND abdominal pain/cramping OR back pain ? NO , less than 20 weeks gestation AND vaginal bleeding ? NO , more than 20 weeks gestation AND vaginal bleeding ? NO , gestation less than 20 weeks AND signs of labor ? NO , 20-37 weeks gestation AND signs of labor ? NO , gestation more than 37 weeks AND signs of labor ? NO AND heartburn ? NO Following ingestion of toxic or caustic substance ? NO Over 50 years of age AND new onset (first episode) unbearable back or abdominal pain ? NO Known abdominal aneurysm (swollen or ballooning aorta) AND sudden onset of unbearable abdominal pain ? NO Unbearable abdominal/pelvic pain ? NO Food or foreign body feels stuck in esophagus. ? NO GI bleeding, more than streaks or scant amount of blood or passing black tarry stool(s) ? NO Chest discomfort associated with shortness of breath, sweating, odd heartbeats or different heart rate, nausea, vomiting, lightheadedness, or fainting lasting 5 or more minutes now or within the last hour ? NO Chest pain spreading to the shoulders, neck, jaw, in one or both arms, stomach or back lasting 5 or more minutes now or within the last hour. Pain is NOT associated with taking a deep breath or a productive cough, movement, or touch to a localized area. ? NO Pressure, fullness, squeezing sensation or pain anywhere in the chest lasting 5 or more minutes now or within the last hour. Pain is NOT associated with taking a deep breath or a productive cough, movement, or touch to a localized area on the chest. ? NO Swallowed an object longer than 2 inches (5 cm) or wider than 3/4 inch (2 cm) wide ? NO Generalized or localized pain that becomes severe with movement, standing up straight or coughing ? NO Injury to abdomen or pelvis ? NO Recent childbirth or miscarriage ? NO Physician Instructions: Care Advice: Another adult should drive. DIEM CLERK documented in this encounter Plan of Treatment Not on filedocumented as of this encounter Visit Diagnoses Not on filedocumented in this encounter Care Teams Professor Of Criminal Justice Relationship Specialty Start Date End Date Arlin López PCP - General Internal Medicine 01/18/13 11/14/17 [facility] [address] [place] [address] documented as of this encounter
--- OUTSIDE RECORDS SUMMARY | 2021-12-23 12:35 | XMS_ITS | Encounter Summary ---
:1935 Author Organization [place] Address [facility] [place] [address] Care Team Providers Name Role Phone Arlin López Primary Care Provider Reason for Visit Auth/Cert - Closed Specialty Diagnoses / Procedures Referred By Contact Refer red To Contact Surgery Diagnoses Right shoulder degenerative joint disease Rh Periop Se rvices Procedures ARTHROPLASTY SHOULDER REVERSE ARTHROPLASTY SHOULDER> [address] [place] [address] [phone] Fax: Referral ID Status Reason Start Date Expiration Date Visits Requ ested Visits Authorized [id number] Closed 1 1 Encounter Details Date Type Department Care Team Description 01/30/2013 Surgery [facility] Evy Farr MD Right Reverse Total Ridges PeriOp Servic es [facility] Shoulder Arthroplasty [address] [facility] [place], [place] [address] [place] [phone] [address] [place] [address] (Wo rk) Surgery Details Date/Time Status Location OR Service Patient Case Case Traum a Class Class Type Case? 01/30/13 7:30 Posted OR OR 02 Orthopedics Surgery AM Admit Panel 1 Procedure LRB Anes Op Region Wound Class Commen ts Right Reverse Total Right Combined General Shoulder I-Clean Right Reverse Total Shoulder with Interscalene Shoulde r Arthroplasty Block Arthroplasty Surgeon Surgeon Role Service Panel Evy Farr MD Primary Orthopedics 1 Special Needs Will NOT answer to Ella. Call Fawad or Rebeca'10.5 / 113.5 lb - stated documented in this encounter Social History Tobacco Use Types Packs/Day Years Used Date Never Smoker Alcohol Use Standard Drinks/Week Comments No 0 (1 standard drink = 0.6 oz pure alcoho l) Sex Assigned at Date Recorded Not on file documented as of this encounter Last Filed Vital Signs Vital Sign Reading Time Taken Comments Blood Pressure 152/73 01/30/2013 7:30 AM CDT Pulse - - Temperature 35.9 ??C (96.6 ??F) 01/30/2013 5:50 AM CDT Respiratory Rate 26 01/30/2013 7:30 AM CDT Oxygen Saturation 96% 01/30/2013 7:30 AM CDT Inhaled Oxygen Concentration - - Weight 53.5 kg (118 lb) 01/30/2013 5:40 AM CDT Height 147.3 cm (4' 10) 01/30/2013 5:40 AM CDT Body Mass Index 24.66 01/30/2013 5:40 AM CDT documented in this encounter Discharge Summaries Evy Farr MD - 02/01/2013 10:44 AM CDT [facility] Discharge Summary Fawad Unger [id number] Age: [age] year old 1935 Date of [...] Regular Discharge activity: Activity 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 informing that they have no openings there. Pt and had identified [facility] as facility for consideration, assessment completed and they will be able to accept pt there. As arrangements were being finalized for pt's transfer, with providing transport, [facility] admissions manager rn called informing that they do have be available. Pt has requested that arrangements be made for her transfer to [facility], arrangements were adjusted and pt discharged to that facility for rehab stay with providing transport ( @ 1015) as noted. With discharge today, no furtehr SWS. Brittani Hinds LSW - 02/01/2013 3:18 PM CDT SWS D: Discharge planning continuing.. Discussed with who informs of plan for pt's transefr tomorrowto rehab facility. [facility] LT has no openings, awaiting calls back from [facility] to determine if they have opening there. [...] other rehab facilities, they have indicated that [place], or maybe [facility] as son lives in that area. SW has provided information on rehab facility in thoseidentified areas, requested that pt andhusband review and advise of facilities they may be interested in so assessments can be done. A/P: Discharge disposition undetermined.. SW will follow up with pt and tomorrow for further discharge planning based on decisions that they make. Marquita Baer MD - 02/01/2013 10:42 AM CDT [facility] Hospitalist Progress Note Assessment and Plan: Patient is a 77 year old female who is POD 1 s/p reverse total shoulder arthroplasty, right 1. Hypertension: BP on the high side. Continue on CASH CROP FARMER clonidine with parameters. Will continue to monitor blood pressure 2. GERD: Continue on CASH CROP FARMER omeprazole and famotidine 3. Asthma: has no wheezes. Will continue CASH CROP FARMER QVAR and Proair inhalers, she has brought them from home. 4. Postherpetic neuralgia: Continue on CASH CROP FARMER gabapentin 5. Hypothyroidism: Continue on CASH CROP FARMER levothyroxine 6. S/p reverse total shoulder arthroplasty: [...] date of discharge: 02/02/13 Evy Farr MD [phone] Adia Colorado MD - 01/31/2013 3:50 PM CDT [facility] Hospitalist Progress Note Assessment and Plan: Patient is a 77 year old female who is POD 0 s/p reverse total shoulder arthroplasty, right 1. Hypertension: Elevated. Continue on CASH CROP FARMER clonidine with parameters. Patient makes it clear that she wishes to have no other medications added to her regimen. 2. GERD: Continue on CASH CROP FARMER omeprazole and famotidine 3. Asthma: No wheezing currently, well controlled. Resume CASH CROP FARMER QVAR and Proair inhalers, she has brought them from home. 4. Postherpetic neuralgia: Continue on CASH CROP FARMER gabapentin 5. Hypothyroidism: Continue on CASH CROP FARMER levothyroxine 6. Low-grade temperature. No signs of [...] 90.00%. I/O last 3 completed shifts: In: 2101 [P.O.:440; I.V.:1661] Out: 2600 [Urine:2600] Filed Vitals: [...] 01/31/2013 3:47 PM CDT SWS D: Per MD request to assist with discharge planning. Chart reviewed noting pt's admit yesterday after surgery for R TSA, noted PT assessment with anticipation of pt's transfer to rehab facility on discharge. Pt lives with her in their apartment in [place], prior to surgery she had been independent with ambulation and ADLs. I: Met with pt and , they affirm plan for pt's transfer to rehab facility and identify [facility], and [facility] as facility preferences.. they have spoken to facilities prior to pt's surgery in anticipation of pt's rehab facility transfer upon hospital discharge.Referral made to resource center for contact with facilities and determination of bed availability. acknowledges understanding of Medicare/SNF criteria. A/P: Good post-hospital care and support planning.. Will await assessments and MD determination of discharge date and continue planning accordingly. Thu Goldstein, OT - 01/31/2013 12:14 PM CDT 01/31/13 [...] see Vital Sign flowsheet (02/22 with spasms; 12/23 at rest) Range of Motion (ROM) ROM [...] Transfer Skill: Sit to Stand Level of [place]: Sit/Stand moderate assist (50% patients effort) Physical Assist/Nonphysical Assist: Sit/Stand set-up required;supervision;verbal cues;nonverbal cues(demo/gestures);1 person assist Transfer Skill: Toilet Transfer Level of [place]: Toilet moderate assist (50% patients effort) Physical Assist/Nonphysical Assist: Toilet set-up required;supervision;verbal cues;nonverbal cues (demo/gestures);1 person assist Balance Balance Comments decreased balance upon standing and mobility in bed Upper Body Dressing Level of [place]: Dress Upper Body maximum assist (25% patients effort) Lower Body Dressing Level of [place]: Dress Lower Body maximum assist (25% patients effort) Toileting Level of [place]: Toilet moderate assist (50% patients effort) Grooming Level of [place]: Grooming moderate assist (50% patients effort) Eating/Self Feeding Level of [place]: Eating moderate assist (50% patients effort) (pt's [...] AM CDT [facility] Progress Note FR 205 DATA: Responded to a pt request to see a hospital technical support analyst. Pt was lying in bed awake with her in the room. INTERVENTION: Pt reported being in a lot of pain from the surgery. Pt reported being involved with their mariaelena. Ptmentioned that their learning solutions specialist was with them yesterday during the surgery. Pt shared about their children and how they are a support network for them. Pt shared that her and her find hilda in volunteering at a school together. Pt asked for prayer, and we prayed in the room. Pt mentioned being nauseous from the pain. Control Analyst offered supportive listening and encouragement to pt for their treatment and recovery. ASSESSMENT: Pt seemed to be well supported by her mariaelena community, and her PLAN: Continue to pray for the pt. Control Analyst availability upon request Saul Tellez Control Analyst Engineering Faculty Pager [phone] Candy Lopez, PT - 01/31/2013 10:23 AM CDT 01/31/13 0900 Quick Adds Type of Visit Initial PT Evaluation Living Environment (R) Lives With spouse Living Arrangements apartment (senior housing) Living Environment Comment Lives in retirement. Pt has supportive . Self-Care Dominant Hand [...] in Pain Yes, see Vital Sign flowsheet (10 spasms, 8-9/10 at rest) Posture Posture Comments [...] no complaints. Pain controlled. 1. Hypertension: Resume CASH CROP FARMER clonidine with parameters 2. GERD: Resume CASH CROP FARMER omeprazole and famotidine 3. Asthma: No wheezing currently, well controlled. Resume CASH CROP FARMER QVAR and Proair inhalers, she has brought them from home. 4. Postherpetic neuralgia: Resume CASH CROP FARMER gabapentin 5. Hypothyroidism: Resume CASH CROP FARMER levothyroxine 6. S/p reverse total shoulder arthroplasty: [...] Atorvastatin Stiff neck and neck pain ??? Claritin Stays awake for 40 hours after 1/4 [...] Miscellaneous Notes Pharmacy-Medication Teaching - Deborah Van [facility] - 02/02/2013 1:35 PM CDT Fawad Unger 1935 female [id number] Allergy: Food; Penicillins; Sulfa drugs; Animal dander; Aspirin; Atorvastatin; Claritin; Fosamax; Oxycodone; Perfume; Pollen extract; Smoke.; Wool fiber; and Petroleum jelly RX: Discharge Medication Consult by Pharmacist EDUCATION: Discharge Medication List Cornel Fawad Home Medication Instructions DAYANA:[id number] Printed on:02/02/13 1335 Medication Information OMEPRAZOLE PO [...] with medication reconciliation of discharge medications with CASH CROP FARMER medications. MDwas contacted with any questions/concerns - no concerns. Patient was not counseled or given any education materials as discharged to a TCU facility. Plan of Care - Phuong Leon PTA - 02/02/2013 11:44 AM CDT Problem: General Rehab Plan of Care Goal: Physical Therapy Goals The patient and/or their novelties sales representative will achieve their patient-specific goals [...] Physical Therapy Goals The patient and/or their novelties sales representative will achieve their patient-specific goals [...] Occupational Therapy Goals The patient and/or their novelties sales representative will achieve their patient-specific goals [...] santo with changes. Going to TCU in [place]. Plan of Care - Heather Harp RN - 02/02/2013 7:34 AM CDT Problem: IP GENERAL POC-ADULT,OB,BEHAVIORAL FVCPM Goal: Individualization/Patient-Specific Goal (Adult,OB,Behavioral The patient and/or their novelties sales representative will achieve their patient-specific goals related to the plan of care. The patient-specific goals include: CTS Discharge planning for transfer to rehab facility. Outcome: Improving Pt did well. Pain controlled with tylenol tonight. Tramadol available however pt did not need it. LSclear, BS present, passing flatus. Drsg CDI. Hand and shoulder slightly swollen. Sling on. in room. Plan to discharge to rehab today. Plan of Care - Eula Chong RN - 02/01/2013 10:22 PM CDT Problem: IP GENERAL POC-ADULT,OB,BEHAVIORAL FVCPM Goal: Individualization/Patient-Specific Goal (Adult,OB,Behavioral The patient and/or their novelties sales representative will achieve their patient-specific goals related to the plan of care. The patient-specific goals include: CTS Discharge planning for transfer to rehab facility. Outcome: Improving [facility] Orthopedic Nursing Progress Note Assessment Assessment: BP [...] Physical Therapy Goals The patient and/or their novelties sales representative will achieve their patient-specific goals [...] to stand with CGA. Ambulated 60' with CAPABILITY LEAD on L. Slow steps with frequent stops pt appears a little confused at times. Seated R UE Rom toelbow and wrist with increased pain. Recommend discharge to TCU if able, otherwise CAPABILITY LEAD and Home PT Plan of Care - [...] Occupational Therapy Goals The patient and/or their novelties sales representative will achieve their patient-specific goals [...] Physical Therapy Goals The patient and/or their novelties sales representative will achieve their patient-specific goals [...] Min A. Ambulated 6' to commode with CAPABILITY LEAD. Commode transfer with CGA with independent with cares Min A for dressing. Ambulated 45' with CGA and CAPABILITY LEAD on LUE. Pt shaky and nauseated throughout walk. RUE wrist and elbow ROM with AAROM x10. Recommend discharge to TCU secondary to increased pain, nausea for increased independece. If unable to go to TCU secondary to not having a qualifying stay would recommend CAPABILITY LEAD and home therapies Plan of Care - Katey Valderrama RN - 02/01/2013 2:12 AM CDT Problem: IP GENERAL POC-ADULT,OB,BEHAVIORAL FVCPM Goal: Individualization/Patient-Specific Goal (Adult,OB,Behavioral The patient and/or their novelties sales representative will achieve their patient-specific goals [...] Care Review (Adult,OB,Behavioral) The patient and/or their novelties sales representative will communicate an understanding of [...] down, casas pulled at the end of industrial relations worker and pt has been up to BR [...] Occupational Therapy Goals The patient and/or their novelties sales representative will achieve their patient-specific goals [...] initiated; pt lives with supportive in independent retirement, previously I with ADLs; pt currently limited [...] Physical Therapy Goals The patient and/or their novelties sales representative will achieve their patient-specific goals [...] Individualization/Patient-Specific Goal (Adult,OB,Behavioral The patient and/or their novelties sales representative will achieve their patient-specific goals [...] Care Review (Adult,OB,Behavioral) The patient and/or their novelties sales representative will communicate an understanding of [...] LOSS: 100. COMPLICATIONS: None noted. INDICATIONS: Fawad nUger is a 74-year-old woman with severe progressive [...] MD MT: [id number] Name: FAWAD UNGER Account: [id number] : 1935 Procedure Date: 01/30/2013 Document: [id number] Brief Op Note - Evy Farr MD - 01/30/2013 10:33 AM CDT [facility] Orthopedic Brief Operative Note Pre-operative diagnosis: Right shoulder degenerative joint disease Post-operative diagnosis: Same Procedure: Procedure(s): REVERSE ARTHROPLASTY SHOULDER Surgeon: Evy Farr MD All Round Logger(s): none Anesthesia: Combined General with Interscalene Block [...] disease Special Needs Will NOT answer to Rose. Kary Celestin or Rebeca'10.5 / 113.5 lb - stated documented in this encounter Results Platelet count (02/02/2013 6:05 AM CDT) P athologist Signature Platelet Count 178 150 - 450 [place] 10e9/L [facility] Specimen Anatomical Collection Method Collection Time Receive d Time (Source) Location / / Volume Laterality Blood specimen 02/02/2013 6:05 AM 09/20/2 013 6:23 (specimen) CDT AM CDT Evy Farr MD LAB - BLOOD ORDERABLES Performing Organization Address City/State/ZIP Code Phon e Antonia M [facility] [address] [place], [place] [address] [facility] (ABNORMAL) CBC with platelets differential (02/01/2013 6:25 AM CDT) [facility] gist Method Time Signature WBC 12.4 (H) 4.0 - [place] 11.0 [facility] 10e9/L [facility] RBC Count 4.28 3.8 - 5.2 [place] 10e12/L [facility] Hemoglobin 11.0 (L) 11.7 - [place] 15.7 g/dL [facility] Hematocrit 34.3 (L) 35.0 - [place] 47.0 % [facility] MCV 80 78 - 100 [place] fl [facility] MCH 25.7 (L) 26.5 - [place] 33.0 pg [facility] MCHC 32.1 31.5 - [place] 36.5 g/dL [facility] RDW 16.2 (H) 10.0 - [place] 15.0 % [facility] Platelet Count 216 150 - 450 [place] 10e9/[facility] Diff Method Automated [facility] % Neutrophils 74.8 % [facility] % Lymphocytes 11.3 % [facility] % Monocytes 11.9 % [facility] % Eosinophils 1.3 % [facility] % Basophils 0.3 % [facility] % Immature 0.4 % [place] Granulocytes [facility] Absolute 9.2 (H) 1.6 - 8.3 [place] Neutrophil 10e9/L [facility] Absolute 1.4 0.8 - 5.3 [place] Lymphocytes 10e9/L [facility] Absolute 1.5 (H) 0.0 - 1.3 [place] Monocytes 10e9/L [facility] Absolute 0.2 0.0 - 0.7 [place] Eosinophils 10e9/L [facility] Absolute 0.0 0.0 - 0.2 [place] Basophils 10e9/L [facility] Abs Immature 0.1 0 - 0.4 [place] Granulocytes 10e9/L [facility] Specimen Anatomical Collection Method Collection Time Receive d Time (Source) Location / / Volume Laterality Blood specimen 02/01/2013 6:25 AM 013 6:56 (specimen) CDT AM CDT Adia Colorado MD LAB - BLOOD ORDERABLES Performing Organization Address City/[facility]/ZIP [facility] Phon e Number [facility] [address] [place], [place] [address] [facility] (ABNORMAL) Glucose (02/01/2013 6:25 AM CDT) P athologist Signature Glucose 108 (H) 60 - 99 [place] mg/dL [facility] Specimen Anatomical Collection Method Collection Time Receive d Time (Source) Location / / Volume Laterality Blood specimen 02/01/2013 6:25 AM 013 6:56 (specimen) CDT AM CDT Evy Farr MD LAB - BLOOD ORDERABLES Performing Organization Address City/[facility]/ZIP Code Phon e Number [place] [address], [place] [address] [facility] (ABNORMAL) Hemoglobin (01/31/2013 5:53 AM CDT) P athologist Signature Hemoglobin 10.5 (L) 11.7 - 15.7 [place] g/[facility] LAB Specimen Anatomical Collection Method Collection Time Receive d Time (Source) Location / / Volume Laterality Blood specimen 01/31/2013 5:53 AM 013 6:10 (specimen) CDT AM CDT Evy Farr MD LAB - BLOOD ORDERABLES Performing Organization Address City/[facility] Phon e Number [facility] [address] [place], [place] [address] [facility] (ABNORMAL) Glucose (01/31/2013 5:53 AM CDT) P athologist Signature Glucose 112 (H) 60 - 99 [place] mg/dL [facility] Specimen Anatomical Collection Method Collection Time Receive d Time (Source) Location / / Volume Laterality Blood specimen 01/31/2013 5:53 AM 013 6:10 (specimen) CDT AM CDT Evy Farr MD LAB - BLOOD ORDERABLES Performing Organization Address City/[facility]/ZIP Code Phon e Number Erica [facility] [address] [place], [place] [address] [facility] Hospitalist IP Consult (01/30/2013 3:31 PM CDT) Evy Farr MD IP CONSULT ORDERABLES Creatinine (01/30/2013 1:00 PM CDT) athologist Signature Creatinine 0.64 0.52 - [facility] 1.04 mg/dL [facility] GFR Estimate >90 >60 [place] mL/min/[address] [place] [address] LAB GFR Estimate If >90 >60 [facility] mL/min/[address] LAB Specimen Anatomical Collection Method Collection Time Receive d Time (Source) Location / / Volume Laterality Blood specimen 01/30/2013 1:00 PM 013 1:05 (specimen) CDT PM CDT Evy Farr MD LAB - BLOOD ORDERABLES Performing Organization Address City/[facility]/ZIP Code Phon camila Knight [address] [facility] Platelet count (01/30/2013 1:00 PM CDT) athologist Signature Platelet Count 212 150 - 450 [place] 10e9/L [facility] Specimen Anatomical Collection Method Collection Time Receive d Time (Source) Location / / Volume Laterality Blood specimen 01/30/2013 1:00 PM 013 1:05 (specimen) CDT PM CDT Evy Farr MD LAB - BLOOD ORDERABLES Performing Organization Address City/[facility] Phon e Number [place] [address] [place], [place] [address] [facility] documented in this encounter Visit Diagnoses Not on filedocumented in this encounter Administered Medications Inactive Administered Medications - up to 3 most recent administrations Medication Order MAR Action Action Date Dose Rate Site bacitracin 100,000 New Bag 01/30/2013 9:57 AM Operative Units, clindamycin CDT Site/S urgical Site (CLEOCIN) 1,800 mg, gentamicin (GARAMYCIN) 200 mg in sodium chloride 0.9% (bag) 2,000 mL irrigation Irrigation, CONTINUOUS, Starting on Tue01/30/13 at 0730, Intra-procedure thrombin 5000 UNITS vial Given 01/30/2013 9:06 AM 5,000 Units Operative PRN, Starting on Tue CDT Site /Surgical Site 01/30/13 at 0906, Apply to , Intra-procedure Water For Irrigation, Sterile SOLN Given 01/30/2013 10:26 AM CDT 1,000 mLs PRN, Starting on Tue01/30/13 at 1026, Intra-procedure documented in this encounter Active and Recently Administered Medications Times are shown in CDT. Scheduled Medication Order 01/31/2013 02/01/2013 02/02/2013 acetaminophen (TYLENOL) tablet 1,000 mg (CANCELED) 183 7 (Given - Provider: Patricia Delvalle RN) 0131 (Given - Provider: Katey gambino RN)0954 (Given - Provider: Altagracia Person RN)1833 (Given - Provider: Eula Chong RN) 0139 [...] puff (CANCELED) 0730 (Given - Provider: Altagracia Person RN)2023 (Given - Provider: RT Ruchi) 0819 (Given - Provider: Iliana zelaya, RT)2014 (Given - Provider: Alphonso Gregorio, RT) [...] (CANCELED) 0955 (G iven - Provider: Altagracia Person, HEENA)0956 (Canceled Entry - Provider: Altagracia Person, HEENA)1837 (Given - Provider: Patricia Delvalle RN) 0814 [...] 50% of baseline or <100,000/??L and notify MD., Post-procedure famotidine (PEPCID) tablet 20 mg (CANCELED) 0630 (Give n - Provider: Katey Valderrama RN)1700 (Not Given - Provider: Patricia Delvalle RN - Reason: Patient/family refused) 0638 (Given [...] Marshall, RT) 0820 (Not Given - Provider: RT Anthony - Reason: Other - Comment: Pt has [...] Patricia Delvalle RN) 0639 (Given - Provider: aKtey Valderrama RN)1724 (Given - Provider: Eula Chong [...] (CANCELED) 183 (Give n - Provider: Patricia Delvalle RN) 1834 (Given - Provider: Eula Chong, HEENA) 50 mg, Oral, EVERY EVENING, First dose on Tue01/30/13 at 2000 Continuous Medication Order 01/31/2013 02/01/2013 02/02/2013 lactated ringers infusion (CANCELED) 0233 (New Bag - P rovider: Katey Valderrama, RN) at 75 mL/hr, Intravenous, CONTINUOUS, [place] to saline lock when PO well tolerated., Post-procedure PRN Medication Order 01/31/2013 02/01/2013 02/02/2013 HYDROmorphone (DILAUDID) injection 0.2 mg (CANCELED) 0 017 (Given - Provider: Katey Valderrama RN)0232 (Given - Provider: Katey Valderrama RN)0500 (Given - Provider: Katey Valderrama RN)0741 (Given - Provider: Altagracia Person, HEENA) 0.2 mg, Intravenous, EVERY 2 HOURS PRN, Starting Tue01/30/13 at 1212, Until Tue02/02/13 at 1239, severe pain, or if patient unable to take PO, Post-procedure, Hold while on DATA WAREHOUSE ARCHITECT. HYDROmorphone (DILAUDID) tablet 1-2 mg (CANCELED) 0839 (Given - Provider: Altagracia Person RN)1211 (Given - Provider: Altagracia Person, HEENA) 1-2 mg, Oral, EVERY 3 HOURS PRN, moderat e to severe pain, Starting Tue01/30/13 at 1212, Hold while on DATA WAREHOUSE ARCHITECT or with regular IV opioid dosing., Post-procedure hydrOXYzine (ATARAX) tablet 10 mg (CANCELED) 0952 (Giv en - Provider: Altagracia Person, HEENA) 10 mg, Oral, EVERY 6 HOURS PRN, other, a djuvant pain, Starting Tue01/30/13 at 1212, Post-procedure ondansetron (ZOFRAN) injection 4 mg (CANCELED) 0729 (S ee Alternative - Provider: Altagracia Person, HEENA)1327 (Given - Provider: Altagracia Person RN) 0952 (See Alternative - Provider: Altagracia Person RN)1707 (See Alternative - Provider: Eula Chong, HEENA) 0851 (See Alternative - Provider: Laverne Person [...] Altagracia mariscal RN)1707 (Given - Provider: Eula Chong, HEENA) 0851 (Given - Provider: Altagracia mariscal RN) [...] Patricia Delvalle RN)2329 (Given - Provider: Patricia Delvalle RN) 0513 (Given - Provider: Katey Valderrama RN)1438 (Given - Provider: Altagracia Person RN)2105 (Given - Provider: Eula Chong, HEENA) 0725 (Given - Provider: Rain Soto LPN) 25 mg, Oral, EVERY 6 HOURS PRN, Starting Tue01/31/13 at 1641, moderate to severe pain documented in this encounter Care Teams Key Attendant Relationship Specialty Start Date End Date Arlin López PCP - General Internal Medicine 01/18/13 11/14/17 [facility] [address] [place] [address] documented as of this encounter
--- OUTSIDE RECORDS SUMMARY | 2021-12-23 12:35 | XMS_ITS | Encounter Summary ---
:1935 Author Organization [place] Address [address] [facility] [place] [address] Care Team Providers Name Role Phone Arlin López Primary Care Provider Reason for Visit Auth/Cert - Closed Specialty Diagnoses / Procedures Referred By Contact Refer red To Contact Surgery Diagnoses Right shoulder degenerative joint disease Rh Periop Se rvices Procedures ARTHROPLASTY SHOULDER REVERSE ARTHROPLASTY SHOULDER> [address], [place] [phone] Fax: Referral ID Status Reason Start Date Expiration Date Visits Requ ested Visits Authorized [id number] Closed 1 1 Encounter Details Date Type Department Care Team Description 01/30/2013 Anesthesia Event [facility] Anirudh Vargas n PeriOp Services MD Jeovany [address] [place] [address] ANESTH [place] [id number] [place], [place] [address] (Wo rk) Anesthesia Record Procedure Summary Procedure Name Responsible Anesthesia Start Anesthesia Stop Anesthesiologist Time Time Right Reverse Total Leon Vargas MD 01/30/13 0738 1034 Shoulder Arthroplasty (Right Shoulder) Events Date Time Event Comment 01/30/2013 0655 Non-OR Block Start Leon molina 0705 Non-OR Block Stop Leon landaverde 0718 0738 An Start 0738 Present 0738 Quick Note To OR, monitors on, VSS, patient positioned to comfort, pre-O2, smooth IV induction, eyes taped, ATI x 1, all PPP . 0741 An Start Data 0741 Present 0744 An Induction 0744 MD Present 0746 MD Present 0749 AN START SEVO 0749 An Intubation 0749 Present 0818 Present 09 Present 0930 MD Present 0938 Present 1018 Present 1022 AN END SEVO 1026 an stop data 1032 Present 1034 An Stop Electronically s igned by Steve Rubin on January 30, 2013 10:34 AM Name Total midazolam 1 mg/mL 4 mg fentaNYL 50 mcg/mL 100 mcg lidocaine 1% 40 mg rocuronium 10 mg/mL 40 mg succinylcholine 20 mg/mL 80 mg glycopyrrolate 0.2 mg/mL 0.2 mg neostigmine 1mg/mL 2 mg dexamethasone 4 mg/mL 6 mg ondansetron 2 mg/mL 4 mg HYDROmorphone 1 mg/ml 1 mg ePHEDrine 50 mg/mL 10 mg ropivacaine 0.75% 20 mL lidocaine 2% /EPI 1:200,000 12 mL etomidate 2 mg/mL 26 mg clindamycin (CLEOCIN) IVPB 900 mg 900 mg tranexamic Acid (CYKLOKAPRON) 1,000 mg in NaCl 0.9% 50 mL bolus 1 g lactated ringers infusion 2,000 mL Agents Name O2 N2O Exp Sevoflurane Blood No blood administrations on file. Lines, Drains, and Airways Type Details Placement Removal Incision/Surgical Site 01/30/13; 1007; Right; 01/30/13 1007 by Shoulder Gildardo Franz RN Peripheral IV 01/30/13; 0643; 20 G; 01/30/13 0643 by 02/01/13 0700 by Left; Lower forearm; Leon Vargas Ma rgaret Alcohol; Injectable; MD Jeovany M, RN Tolerated well RETIRED ETT 01/30/13; 0749; Airway 01/30/13 0749 by 01/30/13 1031 by Size: 7; Cuffed; Oral Steve Rubin, endotracheal tube; Blade JORDON Hughes CRNA, APRN Type: Cocnepcion; Blade BARREL RIB MATTING MACHINE OPERATOR Size: 2; Place by: ps; Insertion Attempts: 1; Breath Sounds: Equal, clear and bilateral; End Tidal CO2: Present; Dentition: Intact; Grade View of Cords: 2 Urethral Catheter 01/30/13; 0800; No; 16 01/30/13 0800 by 0700 by Brigid Agrawal Debra M RN A, RN documented in this encounter Social History Tobacco Use Types Packs/Day Years Used Date Never Smoker Alcohol Use Standard Drinks/Week Comments No 0 (1 standard drink = 0.6 oz pure alcoho l) Sex Assigned at Date Recorded Not on file documented as of this encounter OR Notes Anesthesia Postprocedure Evaluation - Leon Vargas MD - 01/30/2013 12:17 PM CDT Anesthesia Post-Evaluation Note Patient: Fawad Unger Procedure Performed:Procedure(s) with comments: REVERSE ARTHROPLASTY SHOULDER Patient Location: PACU Post OP Diagnosis * No post-op diagnosis entered * Anesthesia Type: General Patient Condition: Respiratory Function (RR / SpO2 / Airway Patency): Satisfactory Cardiac Function (HR / Rhythm / BP): Satisfactory Mental Status: Satisfactory Temperature: Satisfactory Pain Control: Satisfactory PONV: None or treated Beta-Avril Therapy: UTD Blood pressure 153/75, temperature 98.4 ??F (36.9 ??C), temperature source Temporal, resp. rate 16, height 1.473 m (4' 10), weight 53.524 kg (118 lb), SpO2 98.00%. Additional Comments: Doing Well. Euvolemic. Tanja Anesthesia Procedure Notes - Leon Vargas MD - 01/30/2013 7:18 AM CDT Associated Order(s): ANE PERIPHERAL/PARAVETEBRAL BLOCK PROCEDURE NOTE Pre-Procedure Performed by Tanja Referred by MEAGHAN Location: pre-op. PreAnesthestic Checklist: patient identified, IV checked, site marked, risks and benefits discussed,informed consent, monitors and equipment checked, pre-op evaluation, at physician/surgeon's request and post-op pain management Timeout Correct Patient: Yes Correct Procedure: brachial plexus Correct Site: Yes Correct Laterality: Yes Correct Position: Yes Site Marked: Yes Procedure Documentation Procedure: right Brachial plexus block. Diagnosis:DJD R SHOULDER Ultrasound guided ASA 3 Position: sitting Prep: povidone-iodine 7.5% surgical scrub, mask and sterile gloves Nerve Stim: Initial Level 0.7 mA. Lowest motor response mA. Needle: insulated, short bevel (20 G, 2 in). Spinal Needle: (). Insertion Method: Single Shot Assessment/Narrative Injection made incrementally with aspirations every 5 mL. The placement was negative for: blood aspirated, painful injection and site bleedingParesthesia's: Yes and Resolved. Test dose of mL at. Test dose negative for signs of intravascular, subdural or intrathecal injection. Anesthesia Preprocedure Evaluation - Leon Vargas MD - 01/30/2013 6:40 AM CDT Anesthesia Evaluation . ROS/MED HX Pulmonary: (+) Moderate Persistent asthma Last exacerbation: 1 month ago Treatment: Inhaler prn, Nebulizer prn,Inhaler daily and Oral steroids, Neurologic: - neg neurologic ROS Cardiovascular: (-) CAD, CHF, syncope, arrhythmias and valvular problems/murmurs METS/Exercise Tolerance: Hematologic: - neg hematologic ROS Musculoskeletal: (+) arthritis, GI/Hepatic: (+) GERD (-) inflamatory bowel disease and other GI/Hepatic Renal: Endo: (+) thyroid problem hypothyroidism, Psychiatric: (+) psychiatric history Depression Infectious Disease: - neg infectious disease ROS Other: - neg other ROS Physical Exam Airway Mallampati: II TM distance: >3 FB Neck ROM: full Dental Cardiovascular Rhythm and rate: regular and normal Pulmonary breath sounds clear to auscultation(-) no rhonchi, no wheezes and no rales Other findings: Lab Test 01/29/13 1628 WBC 7.4 HGB 11.3* MCV 82 PLT 221 INR 0.95 Lab Test 01/29/13 1628 NA 139 POTASSIUM 4.0 CHLORIDE 101 CO2 31 BUN 16 CR 0.77 ANIONGAP 7 KARY 8.9 GLC 98 Anesthesia Plan ASA Scores 3 . Plan for General and ETT - with Etomidate induction.Maintenance will be Balanced. Nerve block for post-op analgesia to be used for post-operative care. Anesthetic plan, risks, benefits and alternatives discussed with: patient or livestock sales representative. Possibility of blood products discussed. History & Physical Review History and physical reviewed; no interval change.Extreme anxiety regarding needles and procedures in the hospital. Not a candidate for block plus sedation.AK . documented in this encounter Miscellaneous Notes Addendum Note - Leon Vargas MD - 01/30/2013 12:23 PM CDT Addendum created 01/30/13 1223 by Leon Vargas MD Modules edited:Anesthesia Flowsheet Anesthesia Care Transfer Note - Steve Rubin APRN CRNA - 01/30/2013 10:34 AM CDT Anesthesia Care Transfer Note Patient: Fawad Unger Transferred to: PACU Patient vital signs: stable Airway: none documented in this encounter Plan of Treatment Not on filedocumented as of this encounter Procedures Procedure Name Priority Date/Time Associated Diagnosis Comme nts ANE Routine 01/30/2013 7:23 AM Results f or this PERIPHERAL/PARAVETE CDT procedur e are in BRAL BLOCK the results section. documented in this encounter Results Peripheral/Paravetebral Block (01/30/2013 7:23 AM CDT) Narrative Leon Vargas MD - 01/30/2013 7: 23 AM CDT Leon Vargas MD ? 01/30/2013 ??7:23 AM PROCEDURE NOTE Pre-Procedure Performed by Tanja Referred by FANYNV Location: pre-op. ?? PreAnesthestic Checklist: patient identi fied, IV checked, site marked, risks and benefits discussed, in formed consent, monitors and equipment checked, pre-op evaluation , at physician/surgeon's request and post-op pain management Timeout Correct Patient: Yes Correct Procedure: brachial plexus Correct Site: Yes Correct Laterality: Ye s Correct Position: Yes Site Marked: Yes Procedure Documentation Procedure: ?? right ??Brachial plexus bl ock. Diagnosis:DJD R SHOULDER Ultrasound guided ?? ASA 3 Position: sitting Prep: povidone-iodine 7.5% surgical scru b, mask and sterile gloves Nerve Stim: Initial Level 0.7 mA. [place] t motor response mA. Needle: insulated, short bevel (20 G, 2 in). Spinal Needle: (). Insertion Method: Single Shot Assessment/Narrative Injection made incrementally with aspira tions every 5 mL. The placement was negative for: blood as pirated, painful injection and site bleedingParesthesia's : Yes and Resolved. Test dose of mL at. Test dose negative for signs of intravas cular, subdural or intrathecal injection. Procedure Note Leon Vargas MD - 01/30/2013 7: 18 AM CDT PROCEDURE NOTE Pre-Procedure Performed by Tanja Referred by MEAGHAN Location: pre-op. PreAnesthestic Checklist: patient identi fied, IV checked, site marked, risks and benefits discussed, informed consent, monitors and equipment checked, pre-op evaluation, at physician/surgeon's request and post-op pain management Timeout Correct Patient: Yes Correct Procedure: brachial plexus Correct Site: Yes Correct Laterality: Ye s Correct Position: Yes Site Marked: Yes Procedure Documentation Procedure: right Brachial plexus block. Diagnosis:DJD R SHOULDER Ultrasound guided ASA 3 Position: sitting Prep: povidone-iodine 7.5% surgical scru b, mask and sterile gloves Nerve Stim: Initial Level 0.7 mA. [place] t motor response mA. Needle: insulated, short bevel (20 G, 2 in). Spinal Needle: (). Insertion Method: Single Shot Assessment/Narrative Injection made incrementally with aspira tions every 5 mL. The placement was negative for: blood as pirated, painful injection and site bleedingParesthesia's: Yes and Resolved. Test dose of mL at. Test dose negative for signs of intravas cular, subdural or intrathecal injection. Leon Vargsa MD CT ANESTHESIA documented in this encounter Visit Diagnoses Not on filedocumented in this encounter Administered Medications Inactive Administered Medications - up to 3 most recent administrations Medication Order MAR Action Action Date Dose Rate Site clindamycin (CLEOCIN) IVPB 900 mg Given 01/30/2013 7:38 AM CDT 900 mg Routine, 900 mg, Intravenous, PRE-OP/PRE-PROCEDURE, Starting on Tue01/30/13 at 0551, For 1 dose, Give first dose within 1 hour PRIOR to incision., Indications: Perioperative Pharmacoprophylaxis, Pre-procedure dexamethasone (DECADRON) injection Given 01/30/2013 7:44 AM CDT 6 mg PRN, Administer over 1-4 Minutes, Starting on Tue01/30/13 at 0744, Anesthesia Intra-op ePHEDrine injection Given 01/30/2013 9:26 AM CDT 5 mg PRN, Starting on Tue01/30/13 at 0848, Anesthesia Intra-op Given 01/30/2013 8:48 AM CDT 5 mg etomidate (AMIDATE) injection Given 01/30/2013 7:51 AM CDT 6 mg PRN, Starting on Tue01/30/13 at 0744, Anesthesia Intra-op Given 01/30/2013 7:44 AM CDT 20 mg fentaNYL (SUBLIMAZE) injection Given 01/30/2013 7:44 AM CDT 100 mcg PRN, moderate to severe pain, Starting on Tue01/30/13 at 0744, Anesthesia Intra-op glycopyrrolate (ROBINUL) injection Given 01/30/2013 10:07 AM CDT 0.2 mg PRN, Starting on Tue01/30/13 at 1007, Anesthesia Intra-op HYDROmorphone (PF) (DILAUDID) injection Given 01/30/2013 8:21 AM CDT 1 mg PRN, moderate to severe pain, Starting on Tue01/30/13 at 0821, Anesthesia Intra-op lactated ringers infusion New Bag 01/30/2013 10:05 AM CDT mL at 75-100 mL/hr, Intravenous, CONTINUOUS, UNLESS otherwise indicated., Pre-procedure, Starting on Tue01/30/13 at 0600, Until Tue01/30/13 at 1028 New Bag 01/30/2013 8:24 AM CDT mL New Bag 01/30/2013 6:50 AM CDT mL lidocaine 1 % injection Given 01/30/2013 7:44 AM CDT 40 mg PRN, Starting on Tue01/30/13 at 0744, Anesthesia Intra-op lidocaine 2%-EPINEPHrine 1:200,000 injec tion Given 01/30/2013 7:01 AM CDT 9 mLs PRN, Starting on Tue01/30/13 at 0658, Anesthesia Intra-op Given 01/30/2013 6:58 AM CDT 3 mLs midazolam (VERSED) injection Given 01/30/2013 7:38 AM CDT 2 mg PRN, anxiety, Starting on Tue01/30/13 at 0655, Anesthesia Intra-op Given 01/30/2013 6:55 AM CDT 2 mg neostigmine (PROSTIGMINE) injection Given 01/30/2013 10:07 AM CDT 2 mg Intravenous, PRN, Starting on Tue01/30/13 at 1007, Anesthesia Intra-op ondansetron (ZOFRAN) injection Given 01/30/2013 10:07 AM CDT 4 mg PRN, nausea, vomiting, Administer over 2-5 Minutes, Starting on Tue01/30/13 at 1007, Anesthesia Intra-op rocuronium (ZEMURON) injection Given 01/30/2013 8:22 AM CDT 15 mg PRN, Starting on Tue01/30/13 at 0744, Anesthesia Intra-op Given 01/30/2013 7:53 AM CDT 20 mg Given 01/30/2013 7:44 AM CDT 5 mg ropivacaine (NAROPIN) injection Given 01/30/2013 7:01 AM CDT 20 mLs PRN, Starting on Tue01/30/13 at 0701, Anesthesia Intra-op succinylcholine (ANECTINE) injection Given 01/30/2013 7:44 AM CDT 80 mg PRN, Starting on Tue01/30/13 at 0744, Anesthesia Intra-op tranexamic Acid (CYKLOKAPRON) 1,000 mg in NaCl New Bag 0 01/30/2013 7:48 AM CDT 1 g 0.9% 50 mL bolus 1 g, Intravenous, 2 TIMES DAILY, First dose on Tue01/30/13 at 0800, For 2 doses, Please infuse at the same time as antibiotic preoperatively. Give second dose at end of case. Infuse over 30 minutes. Each 1 gram to be infused over 10 minutes., Pre-procedure documented in this encounter Care Teams Instructional Materials Director Relationship Specialty Start Date End Date Arlin López PCP - General Internal Medicine 01/18/13 11/14/[address] [address] documented as of this encounter
--- OUTSIDE RECORDS SUMMARY | 2021-12-23 12:35 | XMS_ITS | Encounter Summary ---
:1935 Author Organization [place] Address [address] [facility] [place] [address] Care Team Providers Name Role Phone Loren Beyer MD Primary Care Provider [phone] Reason for Visit Auth/Cert Specialty Diagnoses / Procedures Referred By Contact Refer red To Contact Gastroenterology Diagnoses DYSPHAGIA Sh Endoscopy Procedures COMBINED ESOPHAGOSCOPY, GASTROSCOPY, DUODENOSCOPY (EGD), DILATATION [address] [phone] Phone: Referral ID Status Reason Start Date Expiration Date Visits Requ ested Visits Authorized [id number] 1 1 Encounter Details Date Type Department Care Team Description 11/25/2017 Surgery [facility] Antonette Sebastian ESOPHAGO GASTRODUODENOSCOPY WITH Melanie Herzog MD DILATION (MAC) [place] [address] [address] [address] [facility] [phone] [place] [address] Surgery Details Date/Time Status Location OR Service Patient Class Case Case Trauma Class Type Case? 11/25/17 8:00 Posted GI GI SP Gastroenterology Outpatient AM 01 Panel 1 Procedure LRB Anes Op Region Wound Class Commen ts ESOPHAGOGASTRODUODENOSCO N/A Monitor Esophagus II-Clean ESOPHAGOGASTRODUODENOSC PY WITH DILATION (MAC) Anesthesia Contaminated OPY WITH DILATION (MAC) Care #17 savory N/A Esophagus II-Clean #17 savory Contaminated Surgeon Surgeon Role Service Panel Antonette Sebastian MD Primary Gastroenterology 1 Special Needs PT HAS SEVERE ASTHMA TO POINT WHERE SHE HAS BEEN HOSPITALIZED documented in this encounter Social History Tobacco [...] Pressure 166/69 11/25/2017 9:20 AM CDT Pulse - - Temperature - - Respiratory Rate 27 11/25/2017 9:21 AM CDT Oxygen Saturation 100% 11/25/2017 9:21 AM CDT Inhaled Oxygen Concentration - - Weight 51.7 kg (114 lb) 11/25/2017 7:20 AM CDT Height 147.3 cm (4' 10) 11/25/2017 7:20 AM CDT Body Mass Index 23.83 11/25/2017 7:20 AM CDT documented in this encounter Medications at Time of Discharge Medication Sig Dispensed Refills Start Date End Date albuterol (2.5 MG/3ML) Take 1 ampule by 0 0.083% nebulizer solution nebulization every 6 hours as needed albuterol (PROAIR HFA, Inhale 2 puffs into 0 PROVENTIL HFA, VENTOLIN the lungs 2 times HFA) 108 (90 BASE) MCG/ACT daily inhaler beclomethasone (QVAR) 80 Inhale 2 puffs into 0 MCG/ACT Inhaler the lungs 2 times daily calcium-vitamin D Take 1 tablet by 0 (CALTRATE) 600-400 MG-UNIT mouth daily per tablet chlorpheniramine Take 2 mg by mouth 0 (CHLOR-TRIMETON) 4 MG every 6 hours as tablet needed Takes for pollen allergy prn CLONIDINE HCL PO Take 0.05 mg by mouth 0 2 times daily LACTASE ENZYME PO Take 9,000 Units by 0 mouth as needed Before ingesting any dairy product Levothyroxine Sodium Take 25 mcg by mouth 0 (SYNTHROID PO) every morning MECLIZINE HCL PO Take 12.5 mg by mouth 0 every 6 hours as needed for other (for vertigo) multivitamin, therapeutic Take 1 tablet by 0 with minerals mouth daily (MULTI-VITAMIN) TABS NEW MED Digel - takes 2 0 tablets or 2 teaspoons prn OMEPRAZOLE PO Take 20 mg by mouth 2 0 times daily (before meals) ONDANSETRON PO Take [...] 50 mg by mouth 0 every evening documented as of this encounter Consult Notes Antonette Sebastian MD - 11/25/2017 7:54 AM CDT Pre-Endoscopy History and Physical Fawad Celeste Date of : 1935 Age: [age] year old Date of Procedure: 11/25/2017 Primary care provider: Loren Beyer Type of Endoscopy: esophagogastroduodenoscopy (upper GI endoscopy) Reason for Procedure: dysphagia Type of Anesthesia Anticipated: sedation per anesthesia HPI: Fawad is a 82 year old female who will be undergoing the above procedure. A history and physical has been performed. The patient's medications and allergies have been reviewed. The risks and benefits of the procedure and the sedation options and risks were discussed with thepatient. All questions were answered and informed consent was obtained. Allergies Allergen Reactions ??? Food Any contact with peas, even odor, causes throat to swell shut. Spicy and acidic foods cause GERD ??? Penicillins Swelling Head swells; asthma flares up ??? Sulfa Drugs Shortness Of Breath and Swelling asthma flares up ??? Alendronate [Alendronic Acid] ??? Animal Dander Asthma ??? Aspirin Doesn't tolerate because of asthma ??? Atorvastatin Stiff neck and neck pain ??? Calcitonin ??? Claritin Stays awake for 40 hours after 1/4 tablet ??? Codeine Unknown Hallucinations ??? Fosamax ??? Hydromorphone Other (See Comments) Mental changes ??? Lisinopril Itching ??? Loratadine ??? Lorazepam Other (See Comments) confusion ??? Oxycodone Hallucinations and confusion ??? Perfume Asthma ??? Pollen Extract asthma ??? Smoke. Asthma ??? Wool Fiber asthma ??? Petroleum Jelly [Petrolatum, Hydrophilic] Rash Petroleum based salves and lotions cause rash No current facility-administered medications for this encounter. Patient Active Problem List Diagnosis (none) - all problems resolved or deleted Past Medical History: Diagnosis Date ??? Anesthesia Very slow to wake up. High reaction to meds ??? Anxiety situational ??? Arthritis ??? Asthma ??? Constipation ??? Dysthymia ??? Gastro-oesophageal reflux disease ??? Hypertension ??? Neuralgia, postherpetic ??? Osteoporosis ??? Thyroid disease hypothyroid ??? Urgency of urination ??? Vertigo Past Surgical History: Procedure Laterality Date ??? DILATION AND CURETTAGE x2 ? ? HEAD & NECK SURGERY wisdom teeth ??? REVERSE ARTHROPLASTY SHOULDER 01/30/2013 Procedure: REVERSE ARTHROPLASTY SHOULDER; Right Reverse Total Shoulder Arthroplasty; Surgeon: Jc Farr MD; Location: [facility] OR ? ? TONSILLECTOMY & ADENOIDECTOMY Social History Substance Use Topics ??? Smoking status: Never Smoker ??? Smokeless tobacco: Never Used ??? Alcohol use No History reviewed. No pertinent family history. PHYSICAL EXAM: BP 187/86 Resp 16 Ht 1.473 m (4' 10) Wt 51.7 kg (114 lb) SpO2 100% BMI 23.83 kg/m2 Estimated body mass index is 23.83 kg/(m^2) as calculated from the following: Height as of this encounter: 1.473 m (4' 10). Weight as of this encounter: 51.7 kg (114 lb). RESP: lungs clear to auscultation - no rales, rhonchi or wheezes CV: regular rates and rhythm IMPRESSION ASA Class 3 - Severe systemic disease, but not incapacitating Signed Electronically by: Antonette Sebastian MD November 25, 2017 . documented in this encounter Plan of Treatment Not on filedocumented as of this encounter Procedures Procedure Name Priority Date/Time Associated Diagnosis Comme nts SURGICAL PATHOLOGY Routine 11/25/2017 8:35 AM Res ults for this EXAM CDT procedure are i n the results section. ESOPHAGOGASTRODUODE 11/25/2017 8:09 AM DYSPHAGIA NOSCOPY, WITH CDT DILATION USING KEILY DILATOR OVER GUIDEWIRE Special Needs PT HAS SEVERE ASTHMA TO POIN T WHERE SHE HAS BEEN HOSPITALIZED ESOPHAGOGASTRODUODENOSCOPY, WITH BIOPSY 11/25/2017 8:0 9 AM CDT DYSPHAGIA Special Needs PT HAS SEVERE ASTHMA TO POIN T WHERE SHE HAS BEEN HOSPITALIZED UPPER GI ENDOSCOPY Routine 11/25/2017 7:16 AM CDT Results for this procedure are in the results sec tion. documented in this encounter Results Surgical pathology exam (11/25/2017 8:35 AM CDT) Component Value Ref Test Analysis Performed At [facility] Range Method Time Signature Copath Report Patient Name: FAWAD CELESTE MR#: [id number] Specimen #: [id number] Collected: 11/25/2017 Received: 11/25/2017 Reported: 11/28/2017 10:45 Ordering Phy(s): ANTONETTE SEBASTIAN For improved result formatting, select 'View Enhanced Report Format' under Linked Documents section. SPECIMEN(S): A: Gastric polyp B: Gastric biopsies C: Esophageal biopsy, distal D: Esophageal biopsy, middle FINAL DIAGNOSIS: A: Stomach, polyps: Biopsy: - Fragments of hyperplastic polyp, negative for dysplasia B: Stomach, random: Biopsy: - Antral and oxyntic type mucosa with mild chronic inflammat ion - No Helicobacter pylori-like organisms seen on H&E examinat ion C: Esophagus, distal: Biopsy: - Squamous mucosa within normal limits - No increase in intraepithelial eosinophils D: Esophagus, middle: Biopsy: - Squamous mucosa within normal limits - No increase in intraepithelial eosinophils Electronically signed out by: Brannon Sams M.D. CLINICAL HISTORY: 82-year-old woman with dysphagia. GROSS: Four specimen containers with formalin are received labeled with the patient's name, date of , and medical record number. ??Information on the requisition slip , containers, and associated labels is confirmed. A. The specimen is designated gastric multiple polyps biops ies. The specimen consists of four pale blandon soft tissue fragments measuring up to 0.3 cm in greatest dimensio n. The specimen is entirely submitted in one cassette. B. The specimen is designated stomach body. The specimen c onsists of three pale blandon soft tissue fragments measuring up to 0.4 cm in greatest dimension. The specimen i s entirely submitted in one cassette. C. The specimen is designated distal esophagus. The specim en consists of three white soft tissue fragments measuring up to 0.4 cm in greatest dimension. The specimen i s entirely submitted in one cassette. D. The specimen is designated middle esophagus. The specim en consists of a single pale blandon soft tissue fragment measuring 0.4 cm in greatest dimension. The specime n is entirely submitted in one cassette. (Dictated by: Whit Anderson 11/25/2017 01:33 PM) MICROSCOPIC: The microscopic findings substantiates the final diagnosis. CPT Codes: A: 11104-HZ7 B: 78329-WJ0 C: 05270-RU1 D: 69979-NR0 TESTING LAB LOCATION: [address] ??[address] COLLECTION SITE: Client: [facility] Specimen (Source) Anatomical Collection Method Collection Time Re ceived Time Location / / Volume Laterality Polyp (morphologic PYLORIC ANTRUM 11/25/2017 8:35 abnormality) STRUCTURE / AM CDT Unknown Tissue specimen STOMACH STRUCTURE 11/25/2017 8:36 (specimen) / Unknown AM CDT Specimen from STRUCTURE OF LOWER 11/25/2017 8:37 unspecified body THIRD OF ESOPHAGUS AM CDT site obtained by / Unknown biopsy (specimen) Specimen from STRUCTURE OF 11/25/2017 8:37 unspecified body MIDDLE THIRD OF AM CDT site obtained by ESOPHAGUS / biopsy (specimen) Unknown Antonette Sebastian MD [facility] Performing Organization Address City/State/ZIP Code Phon e Number COPATH UPPER GI ENDOSCOPY (11/25/2017 7:16 AM CDT) Component Value Ref Test Analysis Performed At [facility] Range Method Time Signature Upper GI [facility] RADIOLOGY Endoscopy [facility] Endoscopy Department RESULTS Patient Name: Fawad Celeste ? Procedure Date: 11/13 7:16 AM ? Accou nt Number: [id number] Date of : 1935 ?Admit Type: Out patient Age: 82 ? Room: special procedure room #1 Note Status: Finalized ?Attending MD: Antonette Sebastian MD Total Sedation Time: ?Instrument Name: 311 GIF-HQ190 Gastroscope Procedure: ?Upper GI endoscopy Indications: ?Dysphagia Providers: ?Antonette Sebastian MD, Andrea Dowell RN Referring MD: ? Jia Beyer MD Medicines: ?Monitored Anesthesia Care Procedure: ?Pre-Anesthesia Assessment: ?- Prior to the procedure, a History and Physical ?was performed, and patient medications and ?allergies were reviewed. The patient is competent. ?The risks and benefits of the procedure and the ?sedation options and risks were discussed with the ?patient. All questions were answered and informed ?consent was obtained. Patient identification and ?proposed procedure were verified by the physician ?in the procedure room. Mental Status Examination: ?alert and oriented. Airway Examination: normal ?oropharyngeal airway and neck mobility. Respiratory ?Examination: clear to auscultation. CV Examination: ?normal. Prophylactic Antibiotics: The patient does ?not require prophylactic antibiotics. Prior ?Anticoagulants: The patient has taken no previous ?anticoagulant or antiplatelet agents. ASA Grade ?Assessment: III - A patient with severe systemic ?disease. After reviewing the risks and benefits, ?the patient was deemed in satisfactory condition to ?undergo the procedure. The anesthesia plan was to ?use monitored anesthesia care (MAC). Immediately ?prior to administration of medications, the patient ?was re-assessed for adequacy to receive sedatives. ?The heart rate, respiratory rate, oxygen ?saturations, blood pressure, adequacy of pulmonary ?ventilation, and response to care were monitored ?throughout the procedure. The physical status of ?the patient was re-assessed after the procedure. ?After obtaining informed consent, the endoscope was ?passed under direct vision. Throughout the ?procedure, the patient's blood pressure, pulse, and ?oxygen saturations were monitored continuously. The ?Endoscope was introduced through the mouth, and ?advanced to the second part of duodenum. The upper ?GI endoscopy was accomplished without difficulty. ?The patient tolerated the procedure well. ? Findings: ? The Z-line was regular and was found 34 cm from the i ncisors. ? A small hiatal hernia was present. ? The mid esophagus was normal. Biopsies were alejandro en with a cold forceps ? for histology. Estimated blood loss was minimal. ? A mild Schatzki ring was found in the lower third of the esophagus. ? Biopsies were taken with a cold forceps f or histology. Estimated blood ? loss was minimal. A guidewire was placed and th e scope was withdrawn. ? Dilation was performe d with a Savary dilator with no resistance at 51 Fr. ? Five 10 mm pedunculat ed and sessile polyps with bleeding and stigmata of ? recent bleeding were found in the gastric antru m. Biopsies were taken ? with a cold forceps for histology. Estimated blood loss was minimal. ? Diffuse mildly erythematous mucosa without bleeding was found in the ? entire examined stomach. Biopsies were taken with a cold forceps for ? histology. Estimated blood loss was minimal. ? The examined duodenum was normal. ? Impression: ? - Z-line regular, 34 cm f rom the incisors. ?- Small hiatal hernia . ?- Normal mid esophagu s. Biopsied. ?- Mild Schatzki ring. Biopsied. ?- Five gastric polyps . Biopsied. ?- Erythematous mucosa in the stomach. Biopsied. ?- Normal examined keyla hawthorne. Recommendation: ? - Discharge patient to home ( ambulatory). ?- Resume previous t. ?- Continue present me dications. ?- Await pathology res ults. ?- Return to GI clinic in 3 weeks. ? Procedure Code(s): ? --- Professional --- ? 74985, Esophagogastroduodenoscopy, flexib le, transoral; with insertion ? of guide wire followed by passage of dila tor(s) through esophagus over ? guide wire ? 86844, 59, Esophagoga stroduodenoscopy, flexible, transoral; with biopsy, ? single or multiple CPT copyright 2017 [employer]. All rights reserved. The codes documented in this report are prelimin wilner and upon machine presser review may be revised to meet current compliance requirements. Signed electronically by Antonette Mccoy MD Antonette Sebastian MD 11/25/2017 8:46:16 AM I was physically present for the entire viewing portion of t he exam. Antonette Sebastian MD Number of Addenda: 0 Note Initiated On: 11/25/2017 7:16 AM MRN: ?[id number] Procedure Date: ? 11/25/2017 7:16:00 AM Estimated Blood Loss: ? Scope In: Scope Out: Specimen (Source) Anatomical Collection Method Collection Time Re ceived Time Location / / Volume Laterality 11/25/2017 7:16 AM CDT Loren Beyer MD PROCEDURES Performing Organization Address City/State/ZIP Code Phon e Number RADIOLOGY RESULTS documented in this encounter Visit Diagnoses Not on filedocumented in this encounter Administered Medications Inactive Administered Medications - up to 3 most recent administrations Medication Order MAR Action Action Date Dose Rate Site lidocaine (LMX4) cream Topical, EVERY 1 HOUR PRN, pain, with VA D insertion or accessing implanted port., Starting on Tue11/25/17 at 0810, Do NOT give if patient has a history of allergy to any local anesthetic or any paul product. Apply 30 minutes prior to VAD insertion or port access. MAX Dose: 2.5 g (?? of 5 g t ube), Pre-procedure lidocaine 1 % 1 mL 1 mL, Other, EVERY 1 HOUR PRN, mild pain with VAD insertion or accessing implanted port, Starting on Tue11/25/17 at 0810, Do NOT give if patient has a history of allergy to any local anesthetic or any paul product. MAX dose 1 mL subcutaneous OR intradermal in divided doses., Pre-procedure ondansetron (ZOFRAN) injection 4 mg 4 mg, Intravenous, ONCE PRN, nausea, vomiting, Adminis ter over 2-5 Minutes, Starting on Tue11/25/17 at 0810, For 1 d ose, Give in ENDO pre procedure prep area. Irritant. For ordered doses up to 4 mg, give IV Push undiluted over 2-5 minutes., Pre-procedure sodium chloride (PF) 0.9% PF flush 3 mL 3 mL, Intracatheter, EVERY 1 HOUR PRN, l ine flush, for peripheral IV flush post IV meds, Starting on Tue11/25/17 at 0810, Pre-procedure sodium chloride (PF) 0.9% PF flush 3 mL 3 mL, Intracatheter, EVERY 8 HOURS, Firs t dose on Tue11/25/17 at 0815, And Q1H PRN, to lock peripheral IV dormant line., Pre-procedure documented in this encounter Active and Recently Administered Medications Times are shown in CDT. Scheduled Medication Order 11/23/2017 11/24/2017 11/25/2017 sodium chloride (PF) 0.9% PF flush 3 mL 0815 (Canceled Entry - Provider: Orders Generic Provider - Comment: Automatically canceled at discontinue of medication order) 3 mL, Intracatheter, EVERY 8 HOURS, Firs t dose on Tue11/25/17 at 0815, And Q1H PRN, to lock peripheral IV dormant line., Pre-procedure PRN Medication Order 11/23/2017 11/24/2017 11/25/2017 lidocaine (LMX4) cream Topical, EVERY 1 HOUR PRN, pain, with VA D insertion or accessing implanted port., Starting Tue11/25/17 at 0810, Do NOT give if patient has a history of allergy to any local anesthetic or any paul pro duct. Apply 30 minutes prior to VAD inse rtion or port access. MAX Dose: 2.5 g (?? of 5 g tube), Pre-procedure lidocaine 1 % 1 mL 1 mL, Other, EVERY 1 HOUR PRN, mild pain with VAD insertion or accessing implanted port, Starting Tue11/25/17 at 0810, Do NOT give if patient has a history of allergy to any local anesthetic or any kristina ne product. MAX dose 1 mL subcutaneous OR intradermal in divided doses., Pre-procedure ondansetron (ZOFRAN) injection 4 mg 4 mg, Intravenous, ONCE PRN, nausea, vom iting, Administer over 2-5 Minutes, Starting Tue11/25/17 at 0810, For 1 dose, Give in ENDO pre procedure prep area. Irritant. For ordered doses up to 4 mg, give I V Push undiluted over 2-5 minutes., Pre-procedure sodium chloride (PF) 0.9% PF flush 3 mL 3 mL, Intracatheter, EVERY 1 HOUR PRN, l ine flush, for peripheral IV flush post IV meds, Starting Tue11/25/17 at 0810, Pre-procedure documented in this encounter Care Teams Silk Spotter Relationship Specialty Start Date End Date Loren Beyer MD PCP - General [facility] 11/15/17 [place] [address] documented as of this encounter
--- OUTSIDE RECORDS SUMMARY | 2021-12-23 12:35 | XMS_ITS | Encounter Summary ---
:1935 Author Organization [place] Address [address] [facility] [place] [address] Care Team Providers Name Role Phone Loren Beyer MD Primary Care Provider [phone] Reason for Visit Auth/Cert Specialty Diagnoses / Procedures Referred By Contact Refer red To Contact Gastroenterology Diagnoses DYSPHAGIA Sh Endoscopy Procedures COMBINED ESOPHAGOSCOPY, GASTROSCOPY, DUODENOSCOPY (EGD), DILATATION [address] [phone] Phone: Referral ID Status Reason Start Date Expiration Date Visits Requ ested Visits Authorized [id number] 1 1 Encounter Details Date Type Department Care Team Description 11/25/[address] [facility] Antonette Sebastiangresham Endoscopy MD Rosenda [address] [facility] [address] [phone] [facility] [phone] [id number] (Wo rk) Social History Tobacco Use Types [...] evening documented as of this encounter Consult Antonette Calloway MD - 11/25/2017 7:54 AM CDT Pre-Endoscopy [...] AM DYSPHAGIA NOSCOPY, WITH CDT DILATION USING SAVARY-KYUNG DILATOR OVER GUIDEWIRE Special Needs PT HAS [...] Component Value Ref Test Analysis Performed At [facility] Range Method Time Signature Copath Report Patient Name: FAWAD CELESTE MR#: [id number] Specimen #: [id number] Collected: 11/25/2017 Received: 11/25/2017 Reported: 11/28/2017 10:45 [...] substantiates the final diagnosis. CPT Codes: A: 06278-NG1 B: 99588-GQ9 C: 99839-CT4 D: 52660-JP0 TESTING LAB LOCATION: [address] ??[address] COLLECTION SITE: Client: [facility] Location: [facility] (S) Specimen (Source) Anatomical Collection Method Collection [...] / biopsy (specimen) Unknown Antonette Sebastian MD [facility] Performing Organization Address City/State/ZIP Code Phon e Number [facility] UPPER GI ENDOSCOPY (11/25/2017 7:16 AM CDT) Component Value Ref Test Analysis Performed At [facility] Range Method Time Signature Upper GI [facility] RADIOLOGY Endoscopy [facility] Endoscopy Department RESULTS Patient Name: Fawad Celeste ? Procedure Date: 11/13 7:16 AM ? Accou nt Number: [id number] Date of : 1935 ?Admit Type: Out patient Age: 82 ? Room: special procedure room #1 Note Status: Finalized ?Attending MD: Antonette Sebastian MD Total Sedation Time: ?Instrument Name: 311 GIF-HQ190 Gastroscope Procedure: ?Upper GI endoscopy Indications: ?Dysphagia Providers: ?Antonette Sebastian MD, Kr evelia Dowell RN Referring MD: ? Jia Beyer [...] ? Dilation was performe d with a Cro Analyticsary dilator with no resistance at 51 Fr. [...] Procedure Code(s): ? --- Professional --- ? 91138, Esophagogastroduodenoscopy, flexib le, transoral; with insertion ? of guide wire followed by passage of dila tor(s) through esophagus over ? guide wire ? 94937, 59, Esophagoga stroduodenoscopy, flexible, transoral; with biopsy, ? single or multiple CPT copyright 2017 [employer]. All rights reserved. The codes documented in this report are prelimin wilner and upon end trimmer review may be revised to meet current compliance requirements. Signed electronically by Antonette Mccoy MD Antonette Sebastian MD 11/25/2017 8:46:16 AM I was physically present for the entire viewing portion of t he exam. Antonette Sebastian MD Number of Addenda: 0 Note Initiated On: 11/25/2017 7:16 AM MRN: ?[id number] Procedure Date: ? 11/25/2017 7:16:00 AM Estimated [...] Pre-procedure documented in this encounter Care Teams Social Work Job Titles Relationship Specialty Start Date End Date Loren Beyer MD PCP - General Family Practice 11/15/[address] [address] documented as of this encounter
--- OUTSIDE RECORDS SUMMARY | 2021-12-23 12:36 | XMS_ITS | Encounter Summary ---
:1935 Author Organization [place] Address [address] [place] [address]. [place] [address] Care Team Providers Name Role Phone Unavailable Primary Care Provider Unavailable Encounter Details Date Type Department Care Team Description 01/01/2010 Office Visit-[facility] INTERFACE [facility] DEPT Provider, [facility] Nurs e Social History Tobacco Use Types Packs/Day Years Used Date Never Assessed Sex Assigned at Date Recorded Not on file documented as of this encounter Progress Notes Provider, [facility] Nurse - 01/01/2010 3:08 PM CDT As400 Operator: Bekah Leigh Status: Amended, Final Encounter: 01 Jan 2010 Type: Chart Note patient calls with new concern:she understands plan for continuing vertigo as outlined in letter of 12/15/2009. Her chief concern now is whether her hearing loss has been assessed for possible relation to autoimmune hearing loss and why she is more newly intolerant of loud noises(singing in rastafari, babies crying) She feels the right hear had poor hearing, but now left maybe affected. She also wonders if this loss is fixable or has central component She has been looking at the AAO/HNS ([place] [employer] of Otolaryngology and Head and Neck surgery) website and feels she should ask about these topics. [phone] Electronically signed by:Bekah Leigh R.N. Jan 01 2010 3:14PM PHARMACOGENETICIST AMENDMENTS: 1. Will review with Dr.Huang stiles call back early next week. Electronically signed by:Bekah Leigh R.N. Jan 02 2010 3:07PM PHARMACOGENETICIST Review documented in this encounter Plan of Treatment Not on filedocumented as of this encounter Visit Diagnoses Not on filedocumented in this encounter
--- OUTSIDE RECORDS SUMMARY | 2021-12-23 12:36 | XMS_ITS | Encounter Summary ---
:1935 Author Organization [place] Address [address] [place] [address]. [place] [address] Care Team Providers Name Role Phone Unavailable Primary Care Provider Unavailable Encounter Details Date Type Department Care Team Description 12/15/2009 Office Visit-[facility] Ear, Nose and Throat Wilfredo Sanchez MD Clinic [address] [facility] 8th Floor, Clinic [address]A [address] [place] [address] [address] Social History Tobacco Use Types Packs/Day Years Used Date Never Assessed Sex Assigned at Date Recorded Not on file documented as of this encounter Progress Notes Cynthia Sanchez - 12/15/2009 10:00 AM CDT Automatic Grinder Operator: Cynthia Sanchez Status: Final - Signature Encounter: 15 Dec 2009 Type: ENT Letter Department of Otolaryngology--Head and Neck Surgery Hiko Mail Code [address] [place] [address] Office: [address] December 15, 2009 Vibha Alvarez MD [address] [address] RE: Ally Unger : 1935 YASEMIN: December 15, [address] Alvarez: Thank you very much for your consultation on Ally Unger. Ms. Unger is a 74-year-old female who is coming in because of vertigo. She says that her first episode was back in February of 2009. Shesaid that that episode of vertigo lasted for several hours and was associated with nausea and vomiting. She says that ever since that time she will get episodes that last anywhere from less than 5 minutes to 6 hours at its maximum. When she had the 6 hour attack she had to go to the emergency department and it sounds like she was admitted at that time because of primarily the nausea and vomiting. Abiodun has had a significant decline in her right hearing since June of this year. However, her reports that she has been complaining of some tinnitus in the right ear for several years. Ms. Haile says that she has had intermittent tinnitus in the right ear for several years, but that it has gotten worse since that time. She did have a hearing test done in February which did reveal hearing asymmetry but she had not noticed any subjective asymmetry. She reports that in June she had anEpley maneuver which completely resolved her vertigo symptoms for 3 months, but then it returned. She had a VNG done about 1-1/2 months ago and she said that her symptoms have completely resolved sincethen as well. She says that in between episodes she does not have any disequilibrium. She does not feel like the tinnitus changes with the episodes and she does not have any aural fullness. PAST MEDICAL HISTORY: Significant for hypertension, depression, gastroesophageal reflux, asthma and sleep difficulties. She is status post tonsillectomy and adenoidectomy. She is status two D&C's. ALLERGIES/MEDICATIONS: Were reviewed in the EMR. FAMILY HISTORY: Negative for anybody in her family who has ear problems, although her has Meniere's disease. REVIEW OF SYSTEMS: Significant for as mentioned in the history of present illness and past medical history. She says that she does have some slight nausea after eating but she attributes that to some of her medications. She specifically denies any visual changes during her episodes of vertigo. She also does not know of any triggers for the vertigo. She says that they can occur even if she is still. She has no headache. What she finds very interesting is that while she has been having the vertigo that her asthma has cleared up to the point where she has not had to take any nebulizers which is not her usual. PHYSICAL EXAMINATION: Physical examination today shows a female who looks younger than her stated age, in no acute distress. Alert, oriented, and answering questions appropriately. Face is symmetric with a House-Brackmann class I out of bilaterally. Bilateral ear canals and tympanic membranes are clear and intact. I had her do tandem gait testing and she did quite well for that. She had just one or two missed steps when she tried to walk slower. She actually did better when she walked quickly. Otherwise she does not have a significantly ataxic gait. OUTSIDE RECORDS: She bring with her multiple outside records from your hospital including audiograms. Her first audiogram was in February of 2009. At that time it revealed essentially normal left hearing and on the right she had an upside down u-shaped moderate upsloping to mild downsloping to moderatesensorineural loss. Her speech discrimination was 76% when tested at 80 decibels and 48% when testedat 95 decibels. The left hearing discrimination was excellent. Her routine audiogram in May of this year shows that the left ear has actually gone down to where she now has a mild high frequency sensorineural hearing loss which is definitely a change from previously. Her speech discrimination score was good on the left ear. On the right ear she now has a flat moderate to severe sensorineural losswith thresholds right around 60 decibels throughout. Her speech discrimination has decline significantly to 16% when tested both at 75 and 100 decibels. She also has a VNG which did not show any caloric asymmetry. There was no bilateral hypofunction. She did have difficulties with optokinetic testing and smooth pursuit. She had no difficulties with positional testing. She did have absent ECoG (Electrocorticography) testing and VEMP (Vestibular Evoked Myogenic Potential) testing was inconclusive as she could not maintain her head and neck in the correct position. MRI scan did not show any enhancing lesions in the internal auditory canals or cerebellopontine angles. ASSESSMENT AND PLAN: This is a female who has had episodes of vertigo, associated nausea and vomiting and disequilibrium that lasted anywhere from minutes to hours. 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 However, she does not have any other fluctuating symptoms with her vertigo such as tinnitus or aural fullness to suggest Meniere's disease. What also is somewhat concerning is the fact that her left hearing has decreased in themid and high frequencies making it difficult to localize her symptoms to one particular ear. This would be in keeping with her VNG which did not show any caloric asymmetry. I discussed with Ms. Haile and her that at this point I do not have a good working diagnosis for her. Certainly her symptoms are suggestive of Meniere's disease, but not entirely clear for that. I do not think that she has BPPV (benign paroxysmal positional vertigo) even though she has had relief with Carly's in the past and with positional testing even this last time. We had a very long discussion about her symptoms and what might be causing them. I discussed with her that without a true vestibular asymmetry then I do not have much to offer for the vertigo since ablation is the only treatment. I would not know which ear to ablate. I discussed with her that if I were to ablate the right ear that it may leave her with chronic disequilibrium which she currently does not have. At this point my recommendation is that if her symptoms return again that she should make an appointment for another Carly maneuver to see if that improves her symptoms. If they do not improve her symptoms then I would like her to give us a call and I will set her up for rotary chair testing. Rotary chair will help confirm central dysfunction and may fruit or nut picker a vestibular asymmetry. If she continues to have central dysfunction, then my recommendation to her would be to undergo vestibular rehabilitation. In the meantime she is going to do some balance training with one of the personal trainers that comes to their longterm complex. Thank you again for your consultation. Please note that the entire 45 minutes of this 50 minute visit were all spent in consultation. Sincerely, Cynthia Sanchez M.D. Department of Otolaryngology TH:carla Electronically signed by:Cynthia Sanchez M.D. Dec 17 2009 1:27PM OPERATIONS ENGINEER documented in this encounter Plan of Treatment Not on filedocumented as of this encounter Visit Diagnoses Not on filedocumented in this encounter
--- OUTSIDE RECORDS SUMMARY | 2021-12-23 12:36 | XMS_ITS | Encounter Summary ---
:1935 Author Organization [place] Address [address] [place] [address]. [place] [address] Care Team Providers Name Role Phone Unavailable Primary Care Provider Unavailable Encounter Details Date Type Department Care Team Description 12/15/2009 Office Visit-[email or web address] INTERFACE [facility] [[email or web address] DEPT Provider, [facility] Nurs e Social History Tobacco Use Types Packs/Day Years Used Date Never Assessed Sex Assigned at Date Recorded Not on file documented as of this encounter Progress Notes Provider, [facility] Nurse - 12/15/2009 10:00 AM CDT Silica Spray Mixer: Leslye Robert Status: Final Encounter: 15 Dec 2009 Type: Rooming Note Reason For Visit RENETTA CELESTE is a 74 year old female presenting today with vertigo. Do you have any other appointments of any type today within the [facility] system? (this includes clinic appt's, Imaging, labs, procedures etc.) No. Pain Eval Current history of pain associated with this visit is denied. Personal Hx Behavioral history: No tobacco use. Home environment: No secondhand tobacco smoke in home. Allergies Aspirin TABS Claritin TABS Fosamax TABS Lipitor TABS Penicillins Perfume Petroleum Jelly OINT Pollen Sulfa Drugs. Current Meds Med list offered and patient declined. AAA-MED RECONCILE;; RPT Albuterol 90 MCG/ACT AERS;INHALE 2 PUFFS TWICE DAILY; RPT Qvar AERS;INHALE 2 PUFFS TWICE DAILY.; RPT PredniSONE 10 MG Kit;as needed for asthma; RPT Doxycycline Hyclate CAPS;INHALE 1 CAPSULE DAILY PRN; RPT Albuterol Sulfate NEBU;USE 1 VIAL IN NEBULIZER 3 TIMES DAILY NEEDED.; RPT Omeprazole 20 MG Tablet Delayed Release;INHALE 1 TABLET TWICE DAILY BEFORE MEALS; RPT Maalox Advanced Max St CHEW;as needed; RPT Sertraline HCl 50 MG Tablet;TAKE 1 TABLET DAILY DIRECTED.; RPT Evista 60 MG Tablet;TAKE 1 TABLET DAILY DIRECTED.; RPT CloNIDine HCl 0.1 MG Tablet;INHALE 1 TABLET TWICE DAILY; RPT Ondansetron 4 MG Tablet Dispersible;INHALE 1 TABLET NEEDED; RPT Phenadoz 25 MG Suppository;INSERT 1 SUPPOSITORY RECTALLY EVERY 12 HOURS NEEDED.; RPT Calcium 600 + D TABS;INHALE 1 TABLET TWICE DAILY; RPT [place] 3 1000 MG Capsule;INHALE 1 CAPSULE 3 TIMES DAILY; RPT Multivitamin/Iron TABS;TAKE 1 TABLET ONCE DAILY.; RPT Lactaid TABS;TAKE 1 TO 3 TABLETS WITH FIRST BITE OF DAIRY FOOD.; RPT. Signature Signed By: Leslye RYAN; 12/15/2009 10:17 AM PERCUSSION TEACHER. documented in this encounter Plan of Treatment Not on filedocumented as of this encounter Visit Diagnoses Not on filedocumented in this encounter
--- OUTSIDE RECORDS SUMMARY | 2021-12-23 12:36 | XMS_ITS | Encounter Summary ---
:1935 Author Organization [place] Address [address] [place] [address]. [place] [address] Care Team Providers Name Role Phone Unavailable Primary Care Provider Unavailable Encounter Details Date Type Department Care Team Description 01/09/2010 Office Visit-[facility] INTERFACE [facility] DEPT Provider, [facility] Nurs e Social History Tobacco Use Types Packs/Day Years Used Date Never Assessed Sex Assigned at Date Recorded Not on file documented as of this encounter Progress Notes Provider, [facility] Nurse - 01/09/2010 10:30 AM CDT Sales Agent Pest Control Service: Bekah Leigh Status: Final - Signature Encounter: 09 Jan 2010 Type: Chart Note Recorded as Task Date: 01/02/2010 03:08 PM, Created By: Bekah Leigh Task Name: Follow Up Assigned To: Bekah Leigh Regarding Patient: RENETTA CELESTE, Status: Active Comment: Bekah Leigh - 02 Jan 2010 3:08 PM TASK CREATED This patient was seen primarily for vertigo, now has questions in re: hearing loss,possible autoimmune and intolerance to loud noises. If you would kindly review her note and I would be happy to returnher call with advice. Thanks so much. Cynthia Sanchez - 06 Jan 2010 9:50 AM TASK REPLIED TO: Previously Assigned To Cynthia Sanchez If she's concerned about autoimmune disease, I'd recommend f/u with her primary for lab testing. If she's not having other systemic symptoms such as fatigue, fever, aches and pains then autoimmune disease is less likely, but again, could be worked up by her primary. The intolerance to loud noises is due to the hearing loss and recruitment due to the hearing loss. 01/09/2010: Spoke with in regards to above noted questions and Dr. Sanchez's recommendation: reviewed recruitment and sensorineural hearing loss, and to review autoimmune concerns with new primary care physician (geriatric specialist / internal medicine).I will send Mrs. Celeste Dr Sanchez's letter as per patient request,in order for her to be ready with complete information /new primary care provider. Electronically signed by:Bekah Leigh R.N. Jan 09 2010 10:40AM ANDROID FRAMEWORK DEVELOPER Review documented in this encounter Plan of Treatment Not on filedocumented as of this encounter Visit Diagnoses Not on filedocumented in this encounter
== END 2021-12-10 09:46 | disposition home or self-care (01) ==
PROVIDERS: PCP Family Medicine; Visit Provider Family Medicine
DX: R41.82 Altered mental status, unspecified (principal)
CPT/HCPCS: A0425; A0427

== ENCOUNTER 2021-12-10 10:15 | Emergency (ER) | payer MEDICARE, OTHER, SELFPAY ==
[2021-12-10 10:18] VITALS: BP 238/102; PULSE 84; RESP 20; O2SAT 97
[2021-12-10 10:37] VITALS: BP 238/102; PULSE 96; RESP 24; TEMP 36.3; O2SAT 96
[2021-12-10 10:38] VITALS: BP 210/90; PULSE 80; RESP 20; O2SAT 96
--- NOTE | 2021-12-10 10:40 | ED.NURSE ---
Pt requesting that manual BP checks be done because our machine made pt's arm tense up and she believes that's why BP reading was high. Design Cell Engineer checked BP manually twice, readings of 210/90 both times.
--- NOTE | 2021-12-10 10:42 | CRLHL7_ITS ---
For Patients: As a result of the Century Cures Act, medical imaging exams and procedure reports are released immediately into your electronic medical record. You may view this report before your referring provider. If you have questions, please contact your health care provider. INDICATION: Loss of words. TECHNIQUE: Noncontrast head CT. FINDINGS: There is no evidence for acute intracranial hemorrhage or hydrocephalus. No mass effect or shift of midline structures. No significant cerebral or cerebellar atrophy. Small vessel ischemic type change in the deep white matter of the cerebral hemispheres. The junior-white matter differentiation is preserved. Normal included calvarium and skull base. The included perineal sinuses and mastoid air cells are clear. IMPRESSION: 1. No acute intracranial process identified. 2. Further imaging evaluation such as with MRI should be based on clinical grounds. Please note that all CT scans at this facility use dose modulation, iterative reconstruction, and/or weight-based dosing when appropriate to reduce radiation dose to as low as reasonably achievable. Dictated by Leon Salinas MD @ 12/10/2021 11:42:50 AM (Electronically Signed)
--- NOTE | 2021-12-10 10:55 | ED.NURSE ---
Pt to the restroom via wheelchair, UA collected. Pt to imaging via wheelchair.
[2021-12-10 11:02] LABS: Appearance Urine Clear (Clear); Bilirubin Urine Negative (Negative); Blood Urine Negative (Negative); Color Urine Yellow (Yellow); Glucose Urine Negative (Negative); Ketones Urine Negative (Negative); Leukocyte Esterase Urine Negative (Negative); Nitrite Urine Negative (Negative); Protein Urine Negative (Negative); Specific Gravity Urine 1.015 (1.000-1.030); Urobilinogen Urine 0.2 (0.2-1.0); pH Urine 8.5 (5.0-8.5)
[2021-12-10 11:20] VITALS: BP 180/80; PULSE 92; RESP 20; O2SAT 96
[2021-12-10 11:22] LABS: Basophils Absolute Auto 0.08 K/uL (0.00-0.30); Basophils Percent Auto 0.8 % (0.0-3.0); Eosinophils Percent Auto 1.9 % (0.0-7.0); Hematocrit 42.5 % (33.0-51.0); Hemoglobin* 13.7 gm/dL (12.0-16.0); Immature Granulocytes Abs Auto 0.03 K/uL (0.00-0.30); Mean Corpuscular HGB Conc 32 gm/dL (32-36); Mean Corpuscular Hemoglobin 27 pg (26-34); Mean Corpuscular Volume 85 fL (80-100); Monocytes Percent Auto 7.2 % (0.0-11.0); Neutrophils Percent Auto 81.8 % (42.0-72.0); Platelet Count* 219 K/uL (140-440); RDW Coefficient of Variation % 13.5 % (11.5-15.5); Red Blood Count 5.01 m/uL (4.00-5.20)
[2021-12-10 11:29] LABS: Slide Review Reflex No
[2021-12-10 11:34] LABS: Chloride* 102 mmol/L (96-114); Sodium* 137 mmol/L (135-149)
[2021-12-10 11:35] LABS: Potassium* 3.7 mmol/L (3.6-5.1)
[2021-12-10 11:37] LABS: Aspartate Amino Transferase* 31 U/L (12-35); Bilirubin Total* 0.1 mg/dL (0.1-1.5); Carbon Dioxide* 28 mmol/L (20-32); Creatinine* 0.9 mg/dL (0.5-1.5); Estimated Glomerular Filt Rate 63 ml/min
[2021-12-10 11:38] LABS: Alanine Aminotransferase* 25 U/L (4-35); Alkaline Phosphatase* 73 U/L (40-150); Blood Urea Nitrogen* 24 mg/dL (7-30); Calcium* 9.3 mg/dL (8.4-10.6); Glucose* 147 mg/dL (60-115); Total Protein* 7.4 g/dL (6.0-8.3)
[2021-12-10 11:40] LABS: RBC Urine 0-2 (0-2); Squamous Epithelial Cell Urine Few (None-Few); WBC Urine 0-2 (0-5)
[2021-12-10 11:41] LABS: Amorphous Sediment Urine Few
[2021-12-10 11:42] LABS: C Reactive Protein* < 0.5 mg/dL (0.5-1.0)
[2021-12-10 11:50] LABS: Troponin I* < 0.01 ng/mL (0.01-0.04)
--- NOTE | 2021-12-10 12:10 | ED.NURSE ---
Patient requesting wheelchair assistance to restroom. Patient refuses to wear facemask or face shield. Patient understands risks of exposure in ED, okay to go to restroom. Assisted via wheelchair.
--- NOTE | 2021-12-10 12:52 | ED_ITS ---
HPI - General Adult General Date Seen: 12/10/21 Chief complaint: Neuro Symptoms/Altered Deficit Stated complaint: Potential stroke Time Seen by Provider: 12/10/21 10:41 Source: patient, family and EMS History of Present Illness HPI narrative: Patient is an 86-year-old woman brought in by EMS. She was on the phone with clinic, she had called because she was upset that her omeprazole prescription had not been refilled and she has been without it for 4 days. She was on the phone with clinic staff, and she notes that she was upset of the time. She says that she was having some difficulty with some words, it sounds like mostly with pronouncing some words. Whoever she was on the phone with became concerned and had her talk to an are an instead. They recommended that she call 911 because they were concerned about word-finding difficulty and stroke. Her was with her at the time. He says that she did have some difficulty with certain words, he says that she would miss pronounced at several times but then ultimately was able to pronounce a correctly. I asked if she was having difficulty speaking with him at the same time. He says that she was able to speak with him without any difficulty. It was only when she was talking with clinic staff that she was having trouble. They did call 911. EMS reports that she occasionally seem to have difficulty with a word, but for the most part was speaking without difficulty. They noted a normal blood sugar. She had some nausea and route, and they gave her Zofran. They did note that she was markedly hypertensive. Patient reports that she always has high blood pressures when not at home. 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 She is intermittently anxious and tearful in her interactions with me. She does tell me that as of arriving here she feels fine. She denies any weakness or numbness, her did not note any other neurologic symptoms, denies any facial droop. She denies any headache. She has not had any chest pain or difficulty breathing. She does tell me that her sodium can ?drop like a rock if she does not get enough extra salt in her diet. She says that when she was diagnosed with diabetes they told her to stop eating carbs and so she has been less able to eat the crackers and pretzels that she normally would use to get extra salt. She has not had any recent fevers or vomiting or diarrhea. Overall, her says that these symptoms lasted a few minutes while she was on the phone with clinic, and then a few minutes after that. Related Data Home Medications Medication Instructions Recorded Confirmed albuterol sulfate 90 mcg/actuation 2 puff INHALATION .Q12 12/10/21 12/10/21 aerosol inhaler clonidine HCl 0.1 mg tablet 0.05 mg PO Q12H 12/10/21 12/10/21 levothyroxine 25 mcg tablet 25 mcg PO DAILY 12/10/21 12/10/21 lorazepam 0.5 mg tablet 0.5 mg PRN 12/10/21 prednisone 5 mg tablet 5 mg PO QAM 12/10/21 12/10/21 sertraline 50 mg tablet 50 mg PO QPM 12/10/21 12/10/21 Previous Rx's Medication Instructions Recorded omeprazole 20 mg capsule,delayed 40 mg PO BID #180 cap 12/10/21 release Allergies Allergy/AdvReac Type Severity Reaction Status Date / Time codeine Allergy Severe Hallucinati Verified 11/18/21 15:28 ng hydrocodone Allergy Severe confusion/h Verified 11/18/21 15:28 allucinatin g oxycodone Allergy Severe Confusion Verified 11/18/21 15:28 penicillin V Allergy Severe Anaphylaxis Verified 11/18/21 15:28 rosuvastatin Allergy Severe Swelling Verified 11/18/21 15:28 of Lip/Tongue/Throat amlodipine Allergy Intermediate Flushing Verified 11/18/21 15:28 bisacodyl Allergy Intermediate rash/scalp, Verified 11/18/21 15:28 [From Dulcolax (bisacodyl)] redness to eyelid hydromorphone Allergy Intermediate mental Verified 11/18/21 15:28 changes lisinopril Allergy Intermediate itchy Verified 11/18/21 15:28 metformin Allergy Intermediate nausea, Verified 11/18/21 15:28 diarrhea atorvastatin Allergy Mild Rash Verified 11/18/21 15:28 calcitonin Allergy Mild Rash Verified 11/18/21 15:28 loratadine Allergy Mild Rash Verified 11/18/21 15:28 lorazepam Allergy severe Verified 11/18/21 15:28 hallucinations montelukast Allergy Hallucinati Verified 11/18/21 15:28 ng peas Allergy Anaphylaxis Verified 11/18/21 15:28 alendronate Allergy Intermediate Uncoded 11/18/21 15:28 asprin Allergy Mild Rash Uncoded 11/18/21 15:28 petrolatum Allergy Rash Uncoded 11/18/21 15:28 sulfa drugs Allergy Anaphylaxis Uncoded 11/18/21 15:28 Review of Systems Status of ROS: Reports: 10 or more systems reviewed and unremarkable except as noted in History and below [facility] Medical History Aspirin allergy Benign gastric polyp Chronic nausea Chronic vertigo Diabetes mellitus Diverticulitis large intestine w/o perforation or abscess w/o bleeding Environmental allergies Epistaxis Functional dyspepsia Health care directive on file History of chronic eczema Injury of wrist, left Iron deficiency anemia Personal history of gallstones Statin intolerance Temporal headache Tetanus vaccine side effect Thyroid nodule Surgical History History of dilation and curettage History of revision of total shoulder arthroplasty History of tonsillectomy and adenoidectomy Family History Mother Depression Osteoarthritis Daughter Depression Sister Hypothyroidism Father No problems noted. Social History Narrative: does not drink alcohol exercises regularly - 2 adult daughters, little/no contact, closest to foster son KAMRON, independent living [facility] non-smoker Exam Narrative: Exam Narrative: Vital signs as noted below. In general, an alert, nontoxic elderly woman. Cooperative, conversant. Head: Normocephalic, atraumatic. Eyes: Pupils are equal reactive. Extraocular movements are full. Conjunctivae are normal. ENT: Mucous membranes are moist. Throat is normal. Neck: Supple without lymphadenopathy. Heart: Regular rate and rhythm. No murmur or rub. Lungs: Clear bilaterally. No increased work of breathing, crackles or wheezes. Abdomen: Soft and nontender. No organomegaly. Extremities: Well perfused. No edema. No calf tenderness. Pulses intact. Neurologic: Patient is alert and oriented to person and place. Speech is fluent here, no word-finding difficulties, dysarthria or other abnormalities. Face is symmetric. Moves all extremities equally, strength is 5 5 bilaterally. Cerebellar function intact by finger-nose testing Affect: Labile. Skin: Warm and dry. Well perfused. Const: Vital Signs, click to edit/add: Vital Signs - 24 hr 12/10/21 10:18 12/10/21 10:37 12/10/21 10:38 Temperature 97.3 F L Pulse Rate [Pulse Oximeter] 84 96 80 Respiratory Rate 20 24 20 Blood Pressure [Le ft Upper Arm] 238/102 H 238/102 H 210/90 H Pulse Oximetry 97 96 96 12/10/21 11:20 12/10/21 13:00 Temperature Pulse Rate [Pulse Oximeter] 92 80 Respiratory Rate 20 Blood Pressure [Le ft Upper Arm] 180/80 H Pulse Oximetry 96 97 Course Course Hospital Course: On arrival, I spoke with her and did a brief exam. She then went for head CT, which by my review was negative for acute findings. Final radiology read was negative as well. They did recommend MRI if there was concern for stroke. She had an EKG which by my review showed normal sinus rhythm, ventricular rate of 66 beats per minute. No acute ST segment changes. Labs notable for a white count of 10.5, hemoglobin 13.7. Normal electrolytes, sodium was 137. This was relayed to her. BUN creatinine normal. Blood sugar 147. LFTs normal. Troponin was less than 0.01. CRP was negative. Urinalysis was negative. She has been without any further neurologic symptoms here. I talked with her about her head CT and labs. She is reassured that her sodium is normal. I did recom mend that we do an MRI here. Overall, it is somewhat suggestive to me that this may have been just that she was flustered on the phone given that her word- finding difficulty seem to be limited to talking to the clinic and she was fine when talking to her . Nonetheless, given her age, risk factors, and hypertensive status here, I did recommend that we do an MRI to rule out stroke or TIA. She really does not feel this is necessary. She thinks that this was not a stroke. She says that her doctor is always told her that that thing she has going for her are her heart and her brain. I have reviewed with her that absent doing an MRI really cannot reassure her that this was not a stroke or TIA, and that missing this diagnosis could have significant implications for her. However, at the end of the day, the decision is up to her whether not she wants to pursue that test or not, and she would like to go home. Her is in agreement with that. She will follow up with her primary doctor in the coming week, and she assures me if she has any recurrent symptoms she will return to the emergency department. There is no evidence of intracranial hemorrhage on her CT scan, certainly no suggestion that this represents intracranial infection such as meningitis, encephalitis etcetera. My suspicion for intracranial mass is quite low given resolution of symptoms, normal exam and negative head CT. Stressed the importance of prompt return for any new neurologic symptoms given that our workup today was incomplete Vital Signs Vital signs: Initial Vital Signs Pulse Rate 84 12/10/21 10:18 Respiratory Rate 20 12/10/21 10:18 Blood Pressure 238/102 H 12/10/21 10:18 Blood Pressure Mean 147 12/10/21 10:18 Blood Pressure Position Supine 12/10/21 10:18 Pulse Oximetry 97 12/10/21 10:18 Oxygen Delivery Method 12/10/21 10:18 Vital Signs Pulse Rate 84 12/10/21 10:18 Respiratory Rate 20 12/10/21 10:18 Blood Pressure 238/102 H 12/10/21 10:18 Pulse Oximetry 97 12/10/21 10:18 Temperature 97.3 F L 12/10/21 10:37 Pulse Rate 80 12/10/21 13:00 Respiratory Rate 20 12/10/21 11:20 Blood Pressure 180/80 H 12/10/21 11:20 Pulse Oximetry 97 12/10/21 13:00 Medical Decision Making Lab Data Labs: Lab Results 12/10/21 12/10/21 12/10/21 Range/Units 10:53 11:12 11:12 WBC 10.50 (4.50-11.00) K/uL RBC 5.01 (4.00-5.20) m/uL Hgb 13.7 (12.0-16.0) gm/dL Hct 42.5 (33.0-51.0) % MCV 85 (80-100) fL MCH 27 (26-34) pg MCHC 32 (32-36) gm/dL RDW Coeff of Eric 13.5 (11.5-15.5) % Plt Count 219 (140-440) K/uL Neut % (Auto) 81.8 H (42.0-72.0) % Lymph % (Auto) 8.0 L (20-44) % Todd % (Auto) 7.2 (0.0-11.0) % Eos % (Auto) 1.9 (0.0-7.0) % Baso % (Auto) 0.8 (0.0-3.0) % Neut # (Auto) 8.60 H (1.7-7.0) K/uL Lymph # (Auto) 0.80 L (0.90-2.90) K/uL Todd # (Auto) 0.80 (0.00-0.90) K/UL Eos # (Auto) 0.20 (0.00-0.50) K/uL Baso # (Auto) 0.08 (0.00-0.30) K/uL Abs Immat Gran (auto) 0.03 (0.00-0.30) K/uL Sodium 137 (135-149) mmol/L Potassium 3.7 (3.6-5.1) mmol/L Chloride 102 (96-114) mmol/L Carbon Dioxide 28 (20-32) mmol/L BUN 24 (7-30) mg/dL Creatinine 0.9 (0.5-1.5) mg/dL Estimated GFR 63 ml/min Glucose 147 H (60-115) mg/dL Calcium 9.3 (8.4-10.6) mg/dL Total Bilirubin 0.1 (0.1-1.5) mg/dL Direct Bilirubin 0.0 (0.0-0.5) mg/dL AST 31 (12-35) U/L ALT 25 (4-35) U/L Alkaline Phosphatase 73 (40-150) U/L Troponin I (0.01-0.04) ng/mL C-Reactive Protein < 0.5 L (0.5-1.0) mg/dL Total Protein 7.4 (6.0-8.3) g/dL Albumin 4.0 (3.3-5.0) g/dL Urine Color Yellow (Yellow) Urine Appearance Clear (Clear) Urine pH 8.5 (5.0-8.5) Ur Specific Elgin 1.015 (1.000-1.030) Urine Protein Negative (Negative) Urine Glucose (UA) Negative (Negative) Urine Ketones Negative (Negative) Urine Blood Negative (Negative) Urine Nitrite Negative (Negative) Urine Bilirubin Negative (Negative) Urine Urobilinogen 0.2 (0.2-1.0) Ur Leukocyte Esterase Negative (Negative) Urine RBC 0-2 (0-2) Urine WBC 0-2 (0-5) Ur Squamous Epith Cells Few (None-Few) Amorphous Sediment Few A (None) Other Sediment (None) Urine Bacteria None (None) 12/10/21 Range/Units 11:12 WBC (4.50-11.00) K/uL RBC (4.00-5.20) m/uL Hgb (12.0-16.0) gm/dL Hct (33.0-51.0) % MCV (80-100) fL MCH (26-34) pg MCHC (32-36) gm/dL RDW Coeff of Eric (11.5-15.5) % Plt Count (140-440) K/uL Neut % (Auto) (42.0-72.0) % Lymph % (Auto) (20-44) % Todd % (Auto) (0.0-11.0) % Eos % (Auto) (0.0-7.0) % Baso % (Auto) (0.0-3.0) % Neut # (Auto) (1.7-7.0) K/uL Lymph # (Auto) (0.90-2.90) K/uL Todd # (Auto) (0.00-0.90) K/UL Eos # (Auto) (0.00-0.50) K/uL Baso # (Auto) (0.00-0.30) K/uL Abs Immat Gran (auto) (0.00-0.30) K/uL Sodium (135-149) mmol/L Potassium (3.6-5.1) mmol/L Chloride (96-114) mmol/L Carbon Dioxide (20-32) mmol/L BUN (7-30) mg/dL Creatinine (0.5-1.5) mg/dL Estimated GFR ml/min Glucose (60-115) mg/dL Calcium (8.4-10.6) mg/dL Total Bilirubin (0.1-1.5) mg/dL Direct Bilirubin (0.0-0.5) mg/dL AST (12-35) U/L ALT (4-35) U/L Alkaline Phosphatase (40-150) U/L Troponin I < 0.01 L (0.01-0.04) ng/mL C-Reactive Protein (0.5-1.0) mg/dL Total Protein (6.0-8.3) g/dL Albumin (3.3-5.0) g/dL Urine Color (Yellow) Urine Appearance (Clear) Urine pH (5.0-8.5) Ur Specific Elgin (1.000-1.030) Urine Protein (Negative) Urine Glucose (UA) (Negative) Urine Ketones (Negative) Urine Blood (Negative) Urine Nitrite (Negative) Urine Bilirubin (Negative) Urine Urobilinogen (0.2-1.0) Ur Leukocyte Esterase (Negative) Urine RBC (0-2) Urine WBC (0-5) Ur Squamous Epith Cells (None-Few) Amorphous Sediment (None) Other Sediment (None) Urine Bacteria (None) Discharge Plan Discharge Clinical Impression: Word finding problem Patient Disposition: Home, Self-Care Condition: Improved Additional Instructions: If you have any recurrent symptoms, or new symptoms such as weakness, numbness, facial droop, headache, or other neurologic problems, return right away to the emergency department. Otherwise follow up with her primary doctor for recheck in the next week. Prescriptions: No Action albuterol sulfate 90 mcg/actuation HFA aerosol inhaler 2 puff INHALATION .Q12 0RF Label Comments: INHALE 2 PUFFS IN THE MORNING AND IN THE EVENING clonidine HCl 0.1 mg tablet 0.05 mg PO Q12H 0RF Label Comments: TAKE ONE-HALF TABLET BY MOUTH THREE TIMES DAILY levothyroxine 25 mcg tablet 25 mcg PO DAILY 0RF Label Comments: TAKE ONE TABLET BY MOUTH EVERY DAY lorazepam 0.5 mg tablet 0.5 mg PRN (Reason: anxiety) 0RF Label Comments: TAKE ONE TABLET BY MOUTH (0.5MG) DIRECTED NEEDED NO MORE THAN 1 TABLET (0.5MG) PER DAY prednisone 5 mg tablet 5 mg PO QAM 0RF Label Comments: TAKE ONE TABLET BY MOUTH EVERY DAY sertraline 50 mg tablet 50 mg PO QPM 0RF Label Comments: TAKE ONE TABLET BY MOUTH ONCE DAILY omeprazole 20 mg capsule,delayed release(DR/EC) 40 mg PO BID Qty: 180 4RF Follow Up/Referrals: Loren Beyer MD [Primary Care Provider] - Stand Alone Forms: [email or web address] ([employer]) Info Instructions
[2021-12-10 13:00] VITALS: PULSE 80; O2SAT 97
--- NOTE | 2021-12-10 13:05 | ED.NURSE ---
Pt declined BP check prior to discharge. States she will use her machine at home that she knows works right.
== END 2021-12-10 13:16 | disposition home or self-care (01) ==
PROVIDERS: Emergency Provider Emergency Medicine; PCP Family Medicine
DX: R47.9 Unspecified speech disturbances (principal)
CPT/HCPCS: 36415; 70450; 80048; 80076; 81001; 84484; 85025; 86140; 93005; 99284; 99285

== ENCOUNTER 2022-01-25 18:50 | Outpatient (CLI) | payer MEDICARE, OTHER, SELFPAY ==
--- OUTSIDE RECORDS SUMMARY | 2022-01-25 09:35 | XMS_ITS | Clinical Summary ---
:1935 Author Organization [facility] Address [address] [place] [address]. [place] [address] Care Team Providers Name Role Phone Loren Beyer MD Primary Care Provider [phone] Allergies Active Allergy Reactions Severity Noted [...] on file Medical Devices Implanted Type Area Page Technician Device Shelf Model / Identifier Expiration Date Ser ial / Lot Humeral Bearing Standard 44-36mm Right: 10/12/2017 [id number] / Implanted: Qty: 1 on 01/30/2013 by Jc Farr MD at [facility] / [id number] Insurance Payer Benefit Plan / Subscriber ID Effective Phone Address T ype Group Dates MEDICA MEDICA PRIME [id number] 2010-Prese [phone] [address] Indemnity SOLUTION nt [address] [place] [address] MEDICARE MEDICARE FOR HB [id number] 2008-Prese [phone] ATTN CLAIMS Medicare SUPPLEMENT nt 40 [address] [place] [address] Advance Directives For more information, please contact: [phone] Latest Code Status on File Code Status Date Activated Date Inactivated Comments DNR/DNI 01/30/2013 12:12 PM 02/02/2013 12:40 PM Care Teams Supervisor Rod Placing Relationship Specialty Start Date End Date Loren Beyer MD PCP - General Family Practice 11/15/[address] [id number]
--- OUTSIDE RECORDS SUMMARY | 2022-01-25 09:35 | XMS_ITS | Encounter Summary ---
:1935 Author Organization [place] Address [address] [facility] [place] [address] Care Team Providers Name Role Phone Loren Beyer MD Primary Care Provider [phone] Reason for Visit Auth/Cert Specialty Diagnoses / Procedures Referred By Contact Refer red To Contact Gastroenterology Diagnoses DYSPHAGIA Sh Endoscopy Procedures COMBINED ESOPHAGOSCOPY, GASTROSCOPY, DUODENOSCOPY (EGD), DILATATION [address] [phone] Phone: Referral ID Status Reason Start Date Expiration Date Visits Requ ested Visits Authorized [id number] 1 1 Encounter Details Date Type Department Care Team Description 11/25/2017 Hospital Encounter [facility] Antonette Sebastianbath Endoscopy MD Rosenda [address] [facility] [address] [address] [facility]9 [facility] [phone] [id number] (Wo rk) Social History Tobacco Use Types [...] Component Value Ref Test Analysis Performed At [facility] Range Method Time Signature Copath Report Patient Name: FAWAD CELESTE MR#: [id number] Specimen #: [id number] Collected: 11/25/2017 Received: 11/25/2017 Reported: 11/28/2017 10:45 [...] substantiates the final diagnosis. CPT Codes: A: 41204-ZR4 B: 44093-OA7 C: 42656-HT0 D: 14014-SJ9 TESTING LAB LOCATION: [address] ??[address] COLLECTION SITE: Client: [facility] Location: [place] (S) Specimen (Source) Anatomical Collection [...] / biopsy (specimen) Unknown Antonette Sebastian MD [facility] Performing Organization Address City/State/ZIP Code Phon e Number [facility] UPPER GI ENDOSCOPY (11/25/2017 7:16 AM CDT) Component Value Ref Test Analysis Performed At [facility] Range Method Time Signature Upper GI [facility] RADIOLOGY Endoscopy [facility] Endoscopy Department RESULTS Patient Name: Fawad Celeste ? Procedure Date: 11/13 7:16 AM ? Accou nt Number: [id number] Date of : 1935 ?Admit Type: Out [...] ? Dilation was performe d with a Attensityary dilator with no resistance at 51 Fr. [...] Procedure Code(s): ? --- Professional --- ? 22254, Esophagogastroduodenoscopy, flexib le, transoral; with insertion ? of guide wire followed by passage of dila tor(s) through esophagus over ? guide wire ? 45668, 59, Esophagoga stroduodenoscopy, flexible, transoral; with biopsy, ? single or multiple CPT copyright 2017 [employer]. All rights reserved. The codes documented in this report are prelimin wilner and upon summer counselor review may be revised to meet current compliance requirements. Signed electronically by Antonette Mccoy MD Antonette Sebastian MD 11/25/2017 8:46:16 AM I was physically present for the entire viewing portion of t he exam. Antonette Sebastian MD Number of Addenda: 0 Note Initiated On: 11/25/2017 7:16 AM MRN: ?[id number] Procedure Date: ? 11/25/2017 7:16:00 AM Estimated [...] Pre-procedure documented in this encounter Care Teams Service Technician Copier Relationship Specialty Start Date End Date Loren Beyer MD PCP - General Family Practice 11/15/[address] [address] documented as of this encounter
--- OUTSIDE RECORDS SUMMARY | 2022-01-25 09:35 | XMS_ITS | Encounter Summary ---
:1935 Author Organization [place] Address [address] [facility] [place] [address] Care Team Providers Name Role Phone Loren Beyer MD Primary Care Provider [phone] Reason for Visit Auth/Cert Specialty Diagnoses / Procedures Referred By Contact Refer red To Contact Gastroenterology Diagnoses DYSPHAGIA Sh Endoscopy Procedures COMBINED ESOPHAGOSCOPY, GASTROSCOPY, DUODENOSCOPY (EGD), DILATATION [address] [phone] Phone: Referral ID Status Reason Start Date Expiration Date Visits Requ ested Visits Authorized [id number] 1 1 Encounter Details Date Type Department Care Team Description 11/25/2017 Surgery [facility] Antonette Sebastian ESOPHAGO GASTRODUODENOSCOPY WITH Melanie Herzog MD DILATION (MAC) Endoscopy [place] [address] [place] [phone] [address] [facility] [phone] [place] [address] Surgery Details Date/Time Status Location OR [...] Component Value Ref Test Analysis Performed At [facility] Range Method Time Signature Copath Report Patient Name: FAWAD CELESTE MR#: [id number] Specimen #: [id number] Collected: 11/25/2017 Received: 11/25/2017 Reported: 11/28/2017 10:45 [...] substantiates the final diagnosis. CPT Codes: A: 60091-EJ0 B: 24382-VT3 C: 74756-RS0 D: 97070-DE5 TESTING LAB LOCATION: [address] ??[address] COLLECTION SITE: Client: [facility] Location[facility] ([facility] Specimen (Source) Anatomical Collection Method Collection [...] / biopsy (specimen) Unknown Antonette Sebastian MD [facility] Performing Organization Address City/State/ZIP Code Phon e Number [facility] UPPER GI ENDOSCOPY (11/25/2017 7:16 AM CDT) Component Value Ref Test Analysis Performed At [facility] Range Method Time Signature Upper GI [facility] RADIOLOGY Endoscopy [facility] Endoscopy Department RESULTS Patient Name: Fawad Celeste ? Procedure Date: 11/13 7:16 AM ? Accou nt Number: [id number] Date of : 1935 ?Admit Type: Out [...] Procedure Code(s): ? --- Professional --- ? 11311, Esophagogastroduodenoscopy, flexib le, transoral; with insertion ? of guide wire followed by passage of dila tor(s) through esophagus over ? guide wire ? 79373, 59, Esophagoga stroduodenoscopy, flexible, transoral; with biopsy, ? single or multiple CPT copyright 2017 [place] [employer]. All rights reserved. The codes documented in this report are prelimin wilner and upon cdl driver review may be revised to meet current compliance requirements. Signed electronically by Antonette Mccoy MD Antonette Sebsatian MD 11/25/2017 8:46:16 AM I was physically present for the entire viewing portion of t he exam. Antonette Sebastian MD Number of Addenda: 0 Note Initiated On: 11/25/2017 7:16 AM MRN: ?[id number] Procedure Date: ? 11/25/2017 7:16:00 AM Estimated [...] Pre-procedure documented in this encounter Care Teams Linen Aide Relationship Specialty Start Date End Date Loren Beyer MD PCP - General [facility] Practice 11/15/17 [place] [address] documented as of this encounter
--- OUTSIDE RECORDS SUMMARY | 2022-01-25 09:35 | XMS_ITS | Encounter Summary ---
:1935 Author Organization [place] Address [facility] [facility] [place] [address] Care Team Providers Name Role Phone Arlin López Primary Care Provider Encounter Details Date Type Department Care Team Description 07/18/2016 Telephone [facility] Nurse Jana Heath, RN [employer] [address] [place] [address] Social History Tobacco Use Types Packs/Day [...] it is due to pain. Requested contacting relationship manager provider Dr. Doran for advice; contacted by [facility] and advises ED evaluation for BP and [...] Instructions: Care Advice: Another adult should drive. PUSHER documented in this encounter Plan of Treatment Not on filedocumented as of this encounter Visit Diagnoses Not on filedocumented in this encounter Care Teams Carbonator Relationship Specialty Start Date End Date Arlin López PCP - General Internal Medicine 01/18/13 11/14/17 [facility] [address] [place] [address] documented as of this encounter
--- OUTSIDE RECORDS SUMMARY | 2022-01-25 09:35 | XMS_ITS | Clinical Summary ---
:1935 Author Organization [facility] [place] [address] Care Team Providers Name Role Phone Loren Beyer MD Primary Care Provider [phone] Allergies Active Allergy Reactions Severity Noted Date Comments Amlodipine Itching, Nausea Only 08/26/2009 Aspirin Lorazepam Confusion 08/26/2016 Limit ativan to 0.5mg or less a s it causes extreme confusion patie nt reports Loratadine Insomnia 11/07/2006 c/o being hype r and did not sle ep for over 50 [address]andra [address]. Codeine Hallucinations 08/26/2016 Food Extracts Tongue Swelling 11/07/2006 Peas--vapor s and actual peas Alendronate Sodium Hydrocodone Confusion 03/29/2017 Lidocaine Behavioral Disturbances 01/30/2018 Atorvastatin Lisinopril 01/05/2008 Periorbital warren h Calcitonin ([place]) Nsaids (Non-Steroidal Aspirin Contraindication 018 Anti-Inflammatory (for reporting) Drug) Unlisted Allergen Other - Describe In 08/26/2016 Tob acco smoke: (Include Detail In Comment Field Extreme asthma Comments) exacerbation Perfumes: Extre me asthma exacerba tion Animals: asthma exacerbation Wool fabrics: a sthma exacerbation Spicy/acidic fo ods: acid reflux Oxycodone Confusion 08/26/2016 Peas Throat Swelling/Closing High 01/30/2018 Penicillins White Petrolatum Rash 11/07/2006 Pollen Extracts Wheezing 11/07/2006 Montelukast *Unknown - Pt Doesn't 08/26/2016 Possib le asthma Remember irritation Sulfa (Sulfonamide Antibiotics) Medications Medication Sig Dispensed Refills Start Date End Date Status MULTIVITAMIN ORAL one daily 0 Ac tive ALBUTEROL SULFATE Give 2.5mg every 300 ml 2 05/10/2008 Active 2.5 MG/3 ML (0.083 4-6 hours as needed %) NEB for wheezing or SOLUTIONIndications: increased cough. Unspecified asthma(493.90) PROAIR HFA 90 2 puffs twice daily 9 GM 11 12/02/2008 Active MCG/ACTUATION AEROSOL INHALERIndications: Unspecified asthma(493.90) DOXYCYCLINE 100 MG take one tablet 20 2 03/27/2009 Active TABIndications: twice daily for ten Unspecified days with colds asthma(493.90) calcium Take 1 tablet by 0 06/04/2009 Ac tive carbonate-cholecalci mouth 2 times daily ferol, 600mg-200 with meals. units, (CALCIUM 600 WITH VITAMIN D3) 600 mg(1,500mg) -200 unit tablet Lactase 3,000 unit Take by mouth. 0 06/04/2009 Active Chew predniSONE 1 tablet. Take 10 0 10/08/2009 Active (DELTASONE) 10 mg mg x 7 days then 10 tablet mg every other day x 2 weeks for asthma flare up aluminum-magnesium Take 15 mL by 0 12/09/2009 Active hydroxide-simethicon mouth. 1-2 times e (MAALOX ADVANCED) daily, PRN 200-200-20 mg/5 mL Susp beclomethasone, 80 USE 2 PUFFS TWICE 1 Inhaler 1 12/22/2009 Active mcg each actuation, DAILY (QVAR) 80 mcg/Actuation inhalerIndications: Unspecified asthma(493.90) raloxifene (EVISTA) Take 1 tablet by 30 tablet 11 12/23/2009 Active 60 mg tablet mouth once daily. omeprazole TAKE ONE CAPSULE 60 capsule 5 06/29/2010 Active (PRILOSEC) 20 mg TWICE DAILY 1/2 -1 capsule HOUR BEFORE A MEAL sertraline (ZOLOFT) TAKE 1/2 TABLET 15 tablet 6 07/24/2010 Active 100 mg tablet DAILY SYNTHROID 25 mcg Take 1 tablet by 0 08/18/2016 Active tablet mouth once daily before a meal. cloNIDine HCl Take 1 tablet by 0 08/03/2016 Active (CATAPRES) 0.1 mg mouth 2 times tablet daily. LORazepam (ATIVAN) Take 1 tablet by 0 08/03/2016 Active 0.5 mg tab mouth one time if needed. traMADol (ULTRAM) 50 Take 0.5 tablets by 0 7 Active mg tablet mouth 2 times daily. FLOVENT HFA 110 Take 2 Puffs by 0 06/15/2016 Active mcg/actuation mouth 2 times inhaler daily. acetaminophen Take 1 tablet by 0 08/26/2016 Active (TYLENOL EXTRA mouth at bedtime if STRGTH) 500 mg needed. Max tablet acetaminophen dose: 4000mg in 24 hrs. Active Problems Problem Noted Date Trochanteric bursitis, right hip 04/20/2017 Overview: August 2016: Greater Trochanteric Bursa i njection by Dr. Keller with ultrasound guidance. April 2017: repeat Greater Trochanter ic Bursa injection by Dr. Dunbar without ultrasound. Trochanteric bursitis, left hip 04/20/2017 Overview: Mar 2017: Left Greater Trochanteric Burs a injection by Dr. Dunbar with very good relief. Shingles (right sided upper extremity) 11/17/2012 Sensorineural hearing loss, asymmetrical 11/04/2009 Overview: Right-significant change since February 14 009 Subjective tinnitus 11/04/2009 Overview: Right ear Depression with anxiety 08/26/2009 Osteoporosis 06/04/2009 Unspecified hypothyroidism 12/25/2008 Unspecified essential hypertension 11/07/2006 Unspecified asthma(493.90) Allergic rhinitis, cause unspecified Esophageal reflux Overview: EGD 07/2008 benign gastric polyp Mixed hyperlipidemia Resolved Problems Problem Noted Date Resolved Date Osteopenia 06/04/2009 06/04/2009 Esophageal reflux 06/04/2009 06/04/2009 Overview: hx hiatal hernia Acute tracheobronchitis 03/04/2009 06/04/2009 Influenza 03/04/2009 06/04/2009 Unspecified hearing loss 02/06/2009 11/04/2009 Disorder of bone and cartilage, unspecified 06/04/2009 Depressive disorder, not elsewhere classified 08/26/2009 Immunizations Name Administration Dates Next Due AMB Influenza, IIV3 (Age >=3 years)(Flu 03/08/2008 Clinic Only) Influenza A (H1N1), Inactivated (Age >=3 04/11/2009 Years) Influenza, IIV3 (Age >=3 years) 02/06/2009, 03/21/2007, 06/2005 Pneumococcal Poly,23-Valent (Pneumovax) 02/08/2007 Family History Medical History Relation Name Comments Asthma Daughter 1 Asthma Daughter 2 Other Father of old age @95 Other Mother of old age @ 92 Relation Name Status Comments Brother 1 Alive Brother 2 Alive Daughter 1 Daughter 2 Father (Age 95) Mother (Age 92) Sister Alive Social History Tobacco Use Types Packs/Day Years Used Date Never Smoker Smokeless Tobacco: Never Used Tobacco Cessation: Counseling Given: Yes Alcohol Use Standard Drinks/Week Comments No 0 (1 standard drink = 0.6 oz pure alcoho l) Sex Assigned at Date Recorded Not on file Obstetrics History Para Term AB IAB SAB Ectopic Multiple Living Live Births 2 2 2 Date Outcome GA Total Labor/2nd/3rd Weight Sex Delivery Anes PTL Stephanie A 1 A5 Name Clin Labor Para Para Last Filed Vital Signs Vital Sign Reading Time Taken Comments Blood Pressure 150/76 01/30/2018 9:12 AM CDT tower Pulse 86 01/30/2018 9:12 AM CDT Temperature 36.7 ??C (98.1 ??F) 10/20/2016 1:23 PM CDT Respiratory Rate 18 11/25/2008 8:48 AM CDT Oxygen Saturation 99% 01/30/2018 9:12 AM CDT Inhaled Oxygen Concentration - - Weight 52.9 kg (116 lb 9.6 oz) 01/30/2018 9:12 AM CDT Height 149 cm (4' 10.66) 01/30/2018 9:12 AM CDT Body Mass Index 23.82 01/30/2018 9:12 AM CDT Plan of Treatment Health Maintenance Due Date Last Done Comments COVID-19 vaccine series (#1) 04/11/1936 Tdap 10/10/1946 Depression screening for age 12+ 1948 Tetanus booster 1956 Zoster (shingles) series for age 0510/09/1986 50+ (1 of 2) Pneumococcal series for age 65+ (2 02/09/2008 02/08/2007 - PCV) BMI (ht and wt on same day) for 01/30/2019 01/30/2018, 08/14 age 18+ Influenza for age 65+ 01/14/2022 04/11/2009, 02/06/2009, 03/08/2008, Additional history exists DEXA/DXA scan for age 65+ Completed 02/20/2015, 11/28/2009 , 11/16/2007 Results Not on filefrom Last 3 Months Insurance Payer Benefit Plan / Subscriber ID Effective Dates Phone Addre ss Type Group MEDICA MR MEDICA PRIME [id number] 2016-Present [address] [address] [employer] [place] [facility] [id number] [address] (Home) [address] [place] [address] Care Teams Suction Drum Drier Operator Relationship Specialty Start Date End Date Loren Beyer MD PCP - General Family Practice 10/20/161999 [facility] [place], [place] [id number]
--- OUTSIDE RECORDS SUMMARY | 2022-01-25 09:35 | XMS_ITS | Encounter Summary ---
:1935 Author Organization [facility] Address [address] [facility] [facility] [place] [address] Care Team Providers Name Role Phone Loren Beyer MD Primary Care Provider [phone] Reason for Visit Auth/Cert Specialty Diagnoses / Procedures Referred By Contact Refer red To Contact Gastroenterology Diagnoses DYSPHAGIA Sh Endoscopy Procedures COMBINED ESOPHAGOSCOPY, GASTROSCOPY, DUODENOSCOPY (EGD), DILATATION [address] [phone] Phone: Referral ID Status Reason Start Date Expiration Date Visits Requ ested Visits Authorized [id number] 1 1 Encounter Details Date Type Department Care Team Description 11/25/2017 Anesthesia Event [facility] Phuong Arias ANESTHESIOLOGY [address] [id number] [facility] Samantha Baird, MAINTENANCE SCHEDULER COMMERCIAL LOAN ASSISTANT [address] [id number] [phone] [id number] Anesthesia Record Procedure Summary Procedure Name Responsible Anesthesia Start Anesthesia Stop Anesthesiologist Time Time ESOPHAGOGASTRODUODENOSCOPY WITH Phuong Arias 11/25/17 0807 11/25/17 0845 DILATION (MAC) (N/A Esophagus) Events Date Time Event Comment 11/25/2017 0807 An Start 0807 An Start Data 0817 AN INCISION 0824 0839 an stop data 0845 An Stop Electronically s igned by Samantha Baird on November 25, 2017 8:45 AM [...] (Last set prior to Anesthesia Care Transfer) COMMERCIAL LOAN ASSISTANT VITALS 11/25/2017 0809 - 11/25/2017 0845 11/25/2017 [...] 0845 documented in this encounter Care Teams Chemical Plant Operator Relationship Specialty Start Date End Date Loren Beyer MD PCP - General Family Practice 11/15/17 [place] [address] documented as of this encounter
--- OUTSIDE RECORDS SUMMARY | 2022-01-25 09:36 | XMS_ITS | Encounter Summary ---
:1935 Author Organization [facility] Address [address] [place] [address]. [place] [address] Care Team Providers Name Role Phone Unavailable Primary Care Provider Unavailable Encounter Details Date Type Department Care Team Description 08/25/2012 Results Only Ear, Nose and Throat Cynthia Sanchez MD Clinic [address] [place] [facility] [address], Clinic [address] [place] [address] Toni Mcgrath Building [address] [facility] [address] [place], [place] [phone] Social History Tobacco Use [...]
--- OUTSIDE RECORDS SUMMARY | 2022-01-25 09:36 | XMS_ITS | Encounter Summary ---
:1935 Author Organization [facility] Address [address] [place] [address]. [place] [address] Care Team Providers Name Role Phone Arlin López Primary Care Provider Reason for Referral Specialty Diagnoses / Procedures Referred By Contact Refer red To Contact [facility] [address] [place] [phone] Referral ID Status Reason Start Date Expiration Date Visits Requ ested Visits Authorized Reason for Visit Auth/Cert - Closed Specialty Diagnoses / Procedures Referred By Contact Refer red To Contact Surgery Diagnoses Right shoulder degenerative joint disease Rh Periop Se rvices Procedures ARTHROPLASTY SHOULDER REVERSE ARTHROPLASTY SHOULDER> [address] [place], [place] [phone] Fax: Referral ID Status Reason Start Date Expiration Date Visits Requ ested Visits Authorized [id number] Closed 1 1 Encounter Details Date Type Department Care Team Description 01/30/2013 - Hospital Encounter [facility] Evy Farr arthritis 02/02/2013 [facility] Jethro Wagner MD (Primary Dx) Surgical [facility] [address] [facility] [place], [place] [address] [phone] [address] [place] [address] Social History Tobacco Use Types [...] Farr MD - 02/01/2013 10:44 AM CDT [facility] Discharge Summary Fawad Unger [id number] Age: [age] year old 1935 Date of [...] Regular Discharge activity: Activity as tolerated Sling methods time analyst except for showering and dressing or doing [...] Call received this morning from Mery at [facility] informing that they have no openings there. Pt and had identified [facility] as facility for consideration, assessment completed and they will be able to accept pt there. As arrangements were being finalized for pt's transfer, with providing transport, [facility] stockroom coordinator called informing that they do have be available. Pt has requested that arrangements be made for her transfer to [facility], arrangements were adjusted and pt discharged to that facility for rehab stay with providing transport ( @ 1015) as noted. With discharge today, no furtehr SWS. Brittani Hinds LSW - 02/01/2013 3:18 PM CDT SWS D: Discharge planning continuing.. Discussed with who informs of plan for pt's transefr tomorrowto rehab facility. [facility] has no openings, awaiting calls back from [facility] to determine if they have opening there. [...] other rehab facilities, they have indicated that [place], or maybe [facility] as son lives in that area. [...] Baer MD - 02/01/2013 10:42 AM CDT [facility] Hospitalist Progress Note Assessment and Plan: Patient is a 77 year old female who is POD 1 s/p reverse total shoulder arthroplasty, right 1. Hypertension: BP on the high side. Continue on STREETCAR REPAIRER clonidine with parameters. Will continue to monitor blood pressure 2. GERD: Continue on STREETCAR REPAIRER omeprazole and famotidine 3. Asthma: has no wheezes. Will continue STREETCAR REPAIRER QVAR and Proair inhalers, she has brought them from home. 4. Postherpetic neuralgia: Continue on STREETCAR REPAIRER gabapentin 5. Hypothyroidism: Continue on STREETCAR REPAIRER levothyroxine 6. S/p reverse total shoulder arthroplasty: [...] 98.00%. I/O last 3 completed shifts: In: 2200 [P.O.:1060; I.V.:1141] Out: 1900 [Urine:1900] Filed Vitals: [...] date of discharge: 02/02/13 Evy Farr MD [phone] Adia Colorado MD - 01/31/2013 3:50 PM CDT [facility] Hospitalist Progress Note Assessment and Plan: Patient is a 77 year old female who is POD 0 s/p reverse total shoulder arthroplasty, right 1. Hypertension: Elevated. Continue on STREETCAR REPAIRER clonidine with parameters. Patient makes it clear that she wishes to have no other medications added to her regimen. 2. GERD: Continue on STREETCAR REPAIRER omeprazole and famotidine 3. Asthma: No wheezing currently, well controlled. Resume STREETCAR REPAIRER QVAR and Proair inhalers, she has brought them from home. 4. Postherpetic neuralgia: Continue on STREETCAR REPAIRER gabapentin 5. Hypothyroidism: Continue on STREETCAR REPAIRER levothyroxine 6. Low-grade temperature. No signs of [...] lives with her in their apartment in [place], prior to surgery she had been independent with ambulation and ADLs. I: Met with pt and , they affirm plan for pt's transfer to rehab facility and identify [facility], and [facility] as facility preferences.. they have spoken to [...] Transfer Skill: Sit to Stand Level of [place]: Sit/Stand moderate assist (50% patients effort) Physical Assist/Nonphysical Assist: Sit/Stand set-up required;supervision;verbal cues;nonverbal cues(demo/gestures);1 person assist Transfer Skill: Toilet Transfer Level of [place]: Toilet moderate assist (50% patients effort) Physical Assist/Nonphysical Assist: Toilet set-up required;supervision;verbal cues;nonverbal cues (demo/gestures);1 person assist Balance Balance Comments decreased balance upon standing and mobility in bed Upper Body Dressing Level of [place]: Dress Upper Body maximum assist (25% patients effort) Lower Body Dressing Level of [place]: Dress Lower Body maximum assist (25% patients effort) Toileting Level of [place]: Toilet moderate assist (50% patients effort) Grooming Level of [place]: Grooming moderate assist (50% patients effort) Eating/Self Feeding Level of [place]: Eating moderate assist (50% patients effort) (pt's [...] AM CDT [facility] Progress Note [facility] 205 DATA: Responded to a pt request to see a hospital double spindle shaper operator. Pt was lying in bed awake with her in the room. INTERVENTION: Pt reported being in a lot of pain from the surgery. Pt reported being involved with their mariaelena. Ptmentioned that their conservation of resources commissioner was with them yesterday during the surgery. Pt shared about their children and how they are a support network for them. Pt shared that her and her find hilda in volunteering at a school together. Pt asked for prayer, and we prayed in the room. Pt mentioned being nauseous from the pain. Senior Genetic Counselor offered supportive listening and encouragement to pt for their treatment and recovery. ASSESSMENT: Pt seemed to be well supported by her mariaelena community, and her PLAN: Continue to pray for the pt. Senior Genetic Counselor availability upon request Saul Tellez Senior Genetic Counselor Application Security Developer Pager [phone] Candy Crain, PT - 01/31/2013 10:23 AM CDT 01/31/13 0900 Quick Adds Type of Visit Initial PT Evaluation Living Environment (R) Lives With spouse Living Arrangements apartment (senior housing) Living Environment Comment Lives in fpc. Pt has supportive . Self-Care Dominant Hand [...] no complaints. Pain controlled. 1. Hypertension: Resume STREETCAR REPAIRER clonidine with parameters 2. GERD: Resume STREETCAR REPAIRER omeprazole and famotidine 3. Asthma: No wheezing currently, well controlled. Resume STREETCAR REPAIRER QVAR and Proair inhalers, she has brought them from home. 4. Postherpetic neuralgia: Resume STREETCAR REPAIRER gabapentin 5. Hypothyroidism: Resume STREETCAR REPAIRER levothyroxine 6. S/p reverse total shoulder arthroplasty: [...] Miscellaneous Notes Pharmacy-Medication Teaching - Deborah Van [facility] - 02/02/2013 1:35 PM CDT Fawad Unger 1935 female [id number] Allergy: Food; Penicillins; Sulfa drugs; Animal dander; Aspirin; Atorvastatin; Claritin; Fosamax; Oxycodone; Perfume; Pollen extract; Smoke.; Wool fiber; and Petroleum jelly RX: Discharge Medication Consult by Pharmacist EDUCATION: Discharge Medication List Fawad Unger Home Medication Instructions DAYANA:[id number] Printed on:02/02/13 1335 Medication Information OMEPRAZOLE PO [...] with medication reconciliation of discharge medications with STREETCAR REPAIRER medications. MDwas contacted with any questions/concerns - no concerns. Patient was not counseled or given any education materials as discharged to a TCU facility. Plan of Care - Phuong Leon PTA - 02/02/2013 11:44 AM CDT Problem: General Rehab Plan of Care Goal: Physical Therapy Goals The patient and/or their retail service representative will achieve their patient-specific goals related [...] Physical Therapy Goals The patient and/or their retail service representative will achieve their patient-specific goals related [...] Occupational Therapy Goals The patient and/or their retail service representative will achieve their patient-specific goals related [...] santo with changes. Going to TCU in [place]. Plan of Care - Heather Harp RN - 02/02/2013 7:34 AM CDT Problem: IP GENERAL POC-ADULT,OB,BEHAVIORAL FVCPM Goal: Individualization/Patient-Specific Goal (Adult,OB,Behavioral The patient and/or their retail service representative will achieve their patient-specific goals related [...] Individualization/Patient-Specific Goal (Adult,OB,Behavioral The patient and/or their retail service representative will achieve their patient-specific goals related to the plan of care. The patient-specific goals include: CTS Discharge planning for transfer to rehab facility. Outcome: Improving [facility] Orthopedic Nursing Progress Note Assessment [...] Physical Therapy Goals The patient and/or their retail service representative will achieve their patient-specific goals related [...] to stand with CGA. Ambulated 60' with PLANT OPERATIONS WORKER on L. Slow steps with frequent stops pt appears a little confused at times. Seated R UE Rom toelbow and wrist with increased pain. Recommend discharge to TCU if able, otherwise PLANT OPERATIONS WORKER and Home PT Plan of Care - [...] Occupational Therapy Goals The patient and/or their retail service representative will achieve their patient-specific goals related [...] Physical Therapy Goals The patient and/or their retail service representative will achieve their patient-specific goals related [...] Min A. Ambulated 6' to commode with PLANT OPERATIONS WORKER. Commode transfer with CGA with independent with cares Min A for dressing. Ambulated 45' with CGA and PLANT OPERATIONS WORKER on LUE. Pt shaky and nauseated throughout walk. RUE wrist and elbow ROM with AAROM x10. Recommend discharge to TCU secondary to increased pain, nausea for increased independece. If unable to go to TCU secondary to not having a qualifying stay would recommend PLANT OPERATIONS WORKER and home therapies Plan of Care - Katey Valderrama RN - 02/01/2013 2:12 AM CDT Problem: IP GENERAL POC-ADULT,OB,BEHAVIORAL FVCPM Goal: Individualization/Patient-Specific Goal (Adult,OB,Behavioral The patient and/or their retail service representative will achieve their patient-specific goals related [...] Care Review (Adult,OB,Behavioral) The patient and/or their retail service representative will communicate an understanding of their [...] down, casas pulled at the end of shift superintendent caustic cresylate and pt has been up to BR [...] drainage. with pt, Plan of Care - Tuh Goldstein OT - 01/31/2013 12:24 PM CDT Problem: General Rehab Plan of Care Goal: Occupational Therapy Goals The patient and/or their retail service representative will achieve their patient-specific goals related [...] initiated; pt lives with supportive in independent fpc, previously I with ADLs; pt currently limited [...] Physical Therapy Goals The patient and/or their retail service representative will achieve their patient-specific goals related [...] Individualization/Patient-Specific Goal (Adult,OB,Behavioral The patient and/or their retail service representative will achieve their patient-specific goals related [...] Care Review (Adult,OB,Behavioral) The patient and/or their retail service representative will communicate an understanding of their [...] FARR MD MT: [id number] Name: FAWAD UNGER MRN: [id number] Account: [id number] : 1935 Procedure Date: 01/30/2013 Document: [id number] Brief Op Note - Evy Farr MD - 01/30/2013 10:33 AM CDT [facility] Orthopedic Brief Operative Note Pre-operative diagnosis: Right shoulder degenerative joint disease Post-operative diagnosis: Same Procedure: Procedure(s): REVERSE ARTHROPLASTY SHOULDER Surgeon: Evy Farr MD Benefits Consulting Analyst(s): none Anesthesia: Combined General with Interscalene Block [...] Signature Platelet Count 178 150 - 450 [place] 10e9/L [facility] Specimen Anatomical Collection Method Collection Time Receive d Time (Source) Location / / Volume Laterality Blood specimen 02/02/2013 6:05 AM 013 6:23 (specimen) CDT AM CDT Evy Farr MD LAB - BLOOD ORDERABLES Performing Organization Address City/State/ZIP Code Phon e Number M [facility] [address] [place], [place] [address] [facility] LAB (ABNORMAL) CBC with platelets differential (02/01/2013 6:25 AM CDT) [facility] gist Method Time Signature WBC 12.4 (H) 4.0 - [place] 11.0 [facility] 10e9/L [facility] RBC Count 4.28 3.8 - 5.2 [place] 10e12/L [facility] Hemoglobin 11.0 (L) 11.7 - [place] 15.7 g/dL [facility] Hematocrit 34.3 (L) 35.0 - [place] 47.0 % [facility] MCV 80 78 - 100 [place] fl [facility] MCH 25.7 (L) 26.5 - [place] 33.0 pg [facility] LAB MCHC 32.1 31.5 - [place] 36.5 g/dL [facility] RDW 16.2 (H) 10.0 - [place] 15.0 % [facility] Platelet Count 216 150 - [address] LAB Diff Method Automated [facility] LAB % Neutrophils 74.8 % [facility] % Lymphocytes 11.3 % [facility] LAB % Monocytes 11.9 % [facility] LAB % Eosinophils 1.3 % [facility] LAB % Basophils 0.3 % [facility] LAB % Immature 0.4 % [place] Granulocytes [facility] Absolute 9.2 (H) 1.6 - 8.3 [place] Neutrophil 10e9/L [facility] Absolute 1.4 0.8 - 5.3 [place] Lymphocytes 10e9/L [facility] Absolute 1.5 (H) 0.0 - 1.3 [place] Monocytes 10e9/L [facility] Absolute 0.2 0.0 - 0.7 [place] Eosinophils 10e9/L [facility] Absolute 0.0 0.0 - 0.2 [place] Basophils 10e9/L [facility] LAB Abs Immature 0.1 0 - 0.4 [place] Granulocytes 10e9L [facility] LAB Specimen Anatomical Collection Method Collection Time Receive d Time (Source) Location / / Volume Laterality Blood specimen 02/01/2013 6:25 AM 013 6:56 (specimen) CDT AM CDT Adia Colorado MD LAB - BLOOD ORDERABLES Performing Organization Address City/[facility]/ZIP Code Phon e Number M [facility] [address] [place], [place] [address] [facility] LAB (ABNORMAL) Glucose (02/01/2013 6:25 AM CDT) P athologist Signature Glucose 108 (H) 60 - 99 [place] mg/dL [facility] LAB Specimen Anatomical Collection Method Collection Time Receive d Time (Source) Location / / Volume Laterality Blood specimen 02/01/2013 6:25 AM 013 6:56 (specimen) CDT AM CDT Evy Farr MD LAB - BLOOD ORDERABLES Performing Organization Address City/[facility]/ZIP Code Phon e Number M [facility] [address] [place], [place] [address] [facility] LAB (ABNORMAL) Hemoglobin (01/31/2013 5:53 AM CDT) P athologist Signature Hemoglobin 10.5 (L) 11.7 - 15.7 [place] g/dL [facility] LAB Specimen Anatomical Collection Method Collection Time Receive d Time (Source) Location / / Volume Laterality Blood specimen 01/31/2013 5:53 AM 013 6:10 (specimen) CDT AM CDT Evy Farr MD LAB - BLOOD ORDERABLES Performing Organization Address City/[facility]/ZIP [facility] Phon e Number [facility] [address], [place] [address] [facility] LAB (ABNORMAL) Glucose (01/31/2013 5:53 AM CDT) P athologist Signature Glucose 112 (H) 60 - 99 [place] mg/dL [facility] LAB Specimen Anatomical Collection Method Collection Time Receive d Time (Source) Location / / Volume Laterality Blood specimen 01/31/2013 5:53 AM 013 6:10 (specimen) CDT AM CDT Evy Farr MD LAB - BLOOD ORDERABLES Performing Organization Address City/State/ZIP Code Phon e Number Erica [facility] [address], [place] [address] [facility] LAB Hospitalist IP Consult (01/30/2013 3:31 PM CDT) Evy Farr MD IP CONSULT ORDERABLES Creatinine (01/30/2013 1:00 PM CDT) athologist Signature Creatinine 0.64 0.52 - [facility] 1.04 mg/dL [facility] LAB GFR Estimate >90 >60 [place] mL/min/[address] [place] [address] LAB GFR Estimate If >90 >60 [facility] mL/min/1.[address] [place] [address] LAB Specimen Anatomical Collection Method Collection Time Receive d Time (Source) Location / / Volume Laterality Blood specimen 01/30/2013 1:00 PM 013 1:05 (specimen) CDT PM CDT Evy Farr MD LAB - BLOOD ORDERABLES Performing Organization Address City/State/ZIP Code Phon e Number Erica [facility] [address], [place] [address] [facility] LAB Platelet count (01/30/2013 1:00 PM CDT) athologist Signature Platelet Count 212 150 - 450 [place] 10e9/L [facility] LAB Specimen Anatomical Collection Method Collection Time Receive d Time (Source) Location / / Volume Laterality Blood specimen 01/30/2013 1:00 PM 013 1:05 (specimen) CDT PM CDT Evy Farr MD LAB - BLOOD ORDERABLES Performing Organization Address City/State/ZIP [facility] Phon e Number Erica [facility] [address], [place] [address] [facility] documented in this encounter Visit [...] on Tue01/30/13 at 1212, Hold while on TIRE MAKER., Post-procedure Given 01/31/2013 5:00 AM CDT 0.2 mg Given 01/31/2013 2:32 AM CDT 0.2 mg Left Arm HYDROmorphone (DILAUDID) tablet 1-2 mg Given 01/31/2013 12:11 PM CDT 1 mg 1-2 mg, Oral, EVERY 3 HOURS PRN, moderate to severe pain, Starting on Tue01/30/13 at 1212, Hold while on TIRE MAKER or with regular IV opioid dosing., Post-procedure [...] when PO well tolerated., Post-procedure, Starting on 9/17/13 at 1215, Until Paulina 02/01/13 at 1547 [...] Provider: Altagracia Person RN)2023 (Given - Provider: Abraham Marshall RT) 818 (Given - Provider: RT Addie)2014 (Given - Provider: Alphonso Gregorio, RT) 0759 (Given - Provider: Iliana zelaya, RT) 2 puff, Inhalation, 2 TIMES DAILY, First dose on Tue01/30/13 at 1215 beclomethasone (QVAR) 80 MCG/ACT inhaler 2 puff (CANCELED) 0819 (Given - Provider: Iliana Avelar, RT)2017 (Given - Provider: Alphonso Gregorio, RT) 0800 [...] (CANCELED) 0730 (Given - Provider: Altagracia Person RN)2025 (Given - Provider: Abraham Marshall, RT) 0820 [...] (Give n - Provider: Patricia Delvalle RN) 183 (Given - Provider: Eula Chong RN) 50 mg, Oral, EVERY EVENING, First dose on Tue01/30/13 at 2000 Continuous Medication Order 01/31/2013 02/01/2013 02/02/2013 lactated ringers infusion (CANCELED) 0233 (New Bag - P rovider: Katey Valderrama, HEENA) at 75 mL/hr, Intravenous, CONTINUOUS, [place] [...] to take PO, Post-procedure, Hold while on TIRE MAKER. HYDROmorphone (DILAUDID) tablet 1-2 mg (CANCELED) 0839 (Given - Provider: Altagracia Person RN)1211 (Given - Provider: Altagracia Person, HEENA) 1-2 mg, Oral, EVERY 3 HOURS PRN, moderat e to severe pain, Starting Tue01/30/13 at 1212, Hold while on TIRE MAKER or with regular IV opioid dosing., Post-procedure hydrOXYzine (ATARAX) tablet 10 mg (CANCELED) 0952 (Giv en - Provider: Altagracia Person, HEENA) 10 mg, Oral, EVERY 6 HOURS PRN, other, a djuvant pain, Starting Tue01/30/13 at 1212, Post-procedure ondansetron (ZOFRAN) injection 4 mg (CANCELED) 0729 (S ee Alternative - Provider: Altagracia Person RN)1327 (Given - Provider: Altagracia Person, HEENA) 0952 (See Alternative - Provider: Altagracia Person [...] mg (CANCELED) 1728 (Given - Provider: Patricia Delvalle, HEENA)2329 (Given - Provider: Patricia Delvalle RN) 0513 (Given - Provider: Katey Valderrama, HEENA)1438 (Given - Provider: Altagracia Person RN)2105 (Given - Provider: Eula Chong RN) 0725 (Given - Provider: Rain Soto LPN) 25 mg, Oral, EVERY 6 HOURS PRN, Starting Tue01/31/13 at 1641, moderate to severe pain documented in this encounter Care Teams Consumer Loan Specialist Relationship Specialty Start Date End Date Arlin López PCP - General Internal Medicine 01/18/13 11/14/17 [facility] [address] [place] [address] documented as of this encounter
--- OUTSIDE RECORDS SUMMARY | 2022-01-25 09:36 | XMS_ITS | Encounter Summary ---
:1935 Author Organization [place] Address [address] [place] [address]. [place] [address] Care Team Providers Name Role Phone Arlin López Primary Care Provider Reason for Visit (Routine) - Closed Specialty Diagnoses / Procedures Referred By Contact Refer red To Contact Radiology / Radiology. Diagnoses R#N/A, [employer], Medicare, sb: Non Epic. Pt to arrive at 9:00 to start prep, draw creatinine. Rh Ct Scan Procedures CT ABDOMEN PELVIS W [address] [place] [address] Phone: Fax: Referral ID Status Reason Start Date Expiration Date Visits Requ ested Visits Authorized [id number] Closed 07/19/2013 07/19/2014 1 1 Encounter Details Date Type Department Care Team Description 07/20/2013 [facility] Ashley Long, Dyspepsia (Primary Dx); Encounter [facility] GEOPHYSICS SCIENTIST FACILITY SECURITY OFFICER Constipation [address] [facility] [address] [place] [address] [place], [place] [address] [phone] Social History Tobacco Use Types Packs/Day Years [...] times daily documented as of this encounter Miscellaneous Notes Initial Assessments - Asael Non-Provider - 07/23/2013 2:54 PM CDT documented in this encounter Plan of Treatment Not on filedocumented as of this encounter Procedures Procedure Name Priority Date/Time Associated Comments Diagnosis CT ABDOMEN PELVIS W Routine 07/20/2013 11:33 AM Dyspepsi a Results for this CONTRAST PATHOLOGY LABORATORY TECHNOLOGIST Constipation procedure are i n the results section. ISTAT CREATININE Routine 07/20/2013 10:18 AM Resu lts for this POCT PATHOLOGY LABORATORY TECHNOLOGIST procedure are i n the results section. documented in this encounter Results CT Abdomen Pelvis w Contrast (07/20/2013 11:33 AM PATHOLOGY LABORATORY TECHNOLOGIST) Anatomical Region Laterality Modality Abdomen/Pelvis, SUBRAD CT BODY, UMP CT ABDOMEN PELVIS Computed Tomography Specimen (Source) Anatomical Location Collection Method / Collectio n Time Received Time / Laterality Volume Impressions 07/20/2013 12:07 PM PATHOLOGY LABORATORY TECHNOLOGIST Impression: 1. Gallstone. 2. Colonic diverticulosis. No definite e vidence for acute diverticulitis. DEMETRIUS HEARN MD Narrative 07/20/2013 12:07 PM PATHOLOGY LABORATORY TECHNOLOGIST CT ABDOMEN PELVIS W CONTRAST ??07/20/2013 11:33 AM HISTORY: ??77-year-old female with const ant nausea, bloating, constipation and dyspepsia. COMPARISON: None. TECHNIQUE: CT of the abdomen and pelvis was performed following the administration of 58 cc Isovue-370 contr ast. Images are reviewed in the axial and coronal planes. FINDINGS: There is a 11 mm gallstone. Th e solid organs in the abdomen appear unremarkable. There are scattered colonic diverticuli. These are most concentrated in the sigmoid col on. There is no definite evidence for acute diverticulitis. The b owel otherwise appears grossly unremarkable. There are small calcified uterine fibroids. The mesenteric arteries are patent without s ignificant stenoses at their origins. Procedure Note Demetrius Hearn MD - 07/20/2013F ormatting of this note might be different from the original. CT ABDOMEN PELVIS W CONTRAST 07/20/2013 11 :33 AM HISTORY: 77-year-old female with constan t nausea, bloating, constipation and dyspepsia. COMPARISON: None. TECHNIQUE: CT of the abdomen and pelvis was performed following the administration of 58 cc Isovue-370 contr ast. Images are reviewed in the axial and coronal planes. FINDINGS: There is a 11 mm gallstone. Th e solid organs in the abdomen appear unremarkable. There are scattered colonic diverticuli. These are most concentrated in the sigmoid col on. There is no definite evidence for acute diverticulitis. The b owel otherwise appears grossly unremarkable. There are small calcified uterine fibroids. The mesenteric arteries are patent without s ignificant stenoses at their origins. IMPRESSION Impression: 1. Gallstone. 2. Colonic diverticulosis. No definite e vidence for acute diverticulitis. DEMETRIUS HEARN MD Ashley Long APRN FACILITY SECURITY OFFICER IMG CT ORDERABLES Creatinine POCT (07/20/2013 10:18 AM PATHOLOGY LABORATORY TECHNOLOGIST) P athologist Signature Creatinine 0.8 0.52 - POINT OF CARE 1.04 mg/dL TEST, HANDHELD METER GFR Estimate 70 >60 POINT OF CARE mL/min/1.7 TEST, HANDHELD m2 METER GFR Estimate If 84 >60 POINT OF CARE Black mL/min/1.7 TEST, HANDHELD m2 METER Specimen Anatomical Collection Method Collection Time Receive d Time (Source) Location / / Volume Laterality 07/20/2013 10:18 07/20/2013 AM PATHOLOGY LABORATORY TECHNOLOGIST 10:25 AM PATHOLOGY LABORATORY TECHNOLOGIST Ashley Long APRN FACILITY SECURITY OFFICER LAB - BEAKER POCT Performing Organization Address City/State/ZIP Code Phon e Number [facility] POINT OF CARE TEST, HANDHELD METER POINT OF CARE TEST, HANDHELD METER documented in this encounter Visit Diagnoses Diagnosis Dyspepsia - Primary Dyspepsia and other specified disorders of function of stomach Constipation Unspecified constipation documented in this encounter Administered Medications Inactive Administered Medications - up to 3 most recent administrations Medication Order MAR Action Action Date Dose Rate Site iopamidol (ISOVUE-370) 76% Given 07/20/2013 11:29 AM PATHOLOGY LABORATORY TECHNOLOGIST 58 mLs solution 500 mL 500 mL, Intravenous, ONCE, On Tue07/20/13 at 1130, For 1 dose sodium chloride 0.9 % BOLUS 1,000 mL New Bag 07/20/2013 11:28 AM PATHOLOGY LABORATORY TECHNOLOGIST 55 mLs Intravenous, 1,000 mL, ONCE, On Tue07/20/13 at 1130, For 1 dose documented in this encounter Care Teams Physical Testing Supervisor Relationship Specialty Start Date End Date Arlin López PCP - General Internal Medicine 01/18/13 11/14/[address] [address] (work) documented as of this encounter
--- OUTSIDE RECORDS SUMMARY | 2022-01-25 09:36 | XMS_ITS | Encounter Summary ---
:1935 Author Organization [place] Address [address] [place] [address]. [place] [address] Care Team Providers Name Role Phone Unavailable Primary Care Provider Unavailable Encounter Details Date Type Department Care Team Description 12/15/2009 Office Visit-[facility] INTERFACE [facility] DEPT Provider, [facility] Nurs e Social History Tobacco Use Types Packs/Day Years Used Date Never Assessed Sex Assigned at Date Recorded Not on file documented as of this encounter Progress Notes Provider, [facility] Nurse - 12/15/2009 10:00 AM CDT High School Teacher: Leslye Robert Status: Final Encounter: 15 Dec 2009 Type: Rooming Note Reason For Visit RENETTA CELESTE is a 74 year old female presenting today with vertigo. Do you have any other appointments of any type today within the [facility] system? (this includes clinic appt's, Imaging, labs, [...] D TABS;INHALE 1 TABLET TWICE DAILY; RPT [place] 3 1000 MG Capsule;INHALE 1 CAPSULE 3 TIMES DAILY; RPT Multivitamin/Iron TABS;TAKE 1 TABLET ONCE DAILY.; RPT Lactaid TABS;TAKE 1 TO 3 TABLETS WITH FIRST BITE OF DAIRY FOOD.; RPT. Signature Signed By: Leslye RYAN; 12/15/2009 10:17 AM FRONT OFFICE ATTENDANT. documented in this encounter Plan of Treatment Not on filedocumented as of this encounter Visit Diagnoses Not on filedocumented in this encounter
--- OUTSIDE RECORDS SUMMARY | 2022-01-25 09:36 | XMS_ITS | Encounter Summary ---
:1935 Author Organization [place] Address [address] [place] [address]. [place] [address] Care Team Providers Name Role Phone Unavailable Primary Care Provider Unavailable Encounter Details Date Type Department Care Team Description 01/01/2010 Office Visit-[facility] INTERFACE [facility] DEPT Provider, [facility] Nurs e Social History Tobacco Use Types Packs/Day Years Used Date Never Assessed Sex Assigned at Date Recorded Not on file documented as of this encounter Progress Notes Provider, [facility] Nurse - 01/01/2010 3:08 PM CDT Bone Cooking Operator: Bekah Leigh Status: Amended, Final Encounter: 01 Jan 2010 Type: Chart Note patient calls with new concern:she understands plan for continuing vertigo as outlined in letter of 12/15/2009. Her chief concern now is whether her hearing loss has been assessed for possible relation to autoimmune hearing loss and why she is more newly intolerant of loud noises(singing in [place], babies crying) She feels the right hear had poor hearing, but now left maybe affected. She also wonders if this loss is fixable or has central component She has been looking at the AAO/HNS ([place] [employer] of Otolaryngology and Head and Neck surgery) website and feels she should ask about these topics. [phone] Electronically signed by:Bekah Leigh R.N. Jan 01 2010 3:14PM SENIOR FIELD ENGINEER AMENDMENTS: 1. Will review with Dr.Huang stiles call back early next week. Electronically signed by:Bekah Leigh R.N. Jan 02 2010 3:07PM SENIOR FIELD ENGINEER Review documented in this encounter Plan of Treatment Not on filedocumented as of this encounter Visit Diagnoses Not on filedocumented in this encounter
--- OUTSIDE RECORDS SUMMARY | 2022-01-25 09:36 | XMS_ITS | Encounter Summary ---
:1935 Author Organization [place] Address [facility] [place] [address] Care Team Providers Name Role Phone Arlin López Primary Care Provider Reason for Visit Auth/Cert - Closed Specialty Diagnoses / Procedures Referred By Contact Refer red To Contact Surgery Diagnoses Right shoulder degenerative joint disease Rh Periop Se rvices Procedures ARTHROPLASTY SHOULDER REVERSE ARTHROPLASTY SHOULDER> [address] [place], [place] [address] Fax: Referral ID Status Reason Start Date Expiration Date Visits Requ ested Visits Authorized [id number] Closed 1 1 Encounter Details Date Type Department Care Team Description 01/29/2013 Hospital Encounter [facility] Jc Phelps MD Laboratory [facility] [address] [facility] [facility] [place], [place] [address] [facility] [address] [address] [place] [address] (Wo rk) Social History Tobacco [...] Signature PTT 32 22 - [address] [facility] Specimen Anatomical Collection Method Collection Time Receive d Time (Source) Location / / Volume Laterality 01/29/2013 4:28 PM 3 4:35 CDT PM CDT Jc Farr MD LAB - BLOOD ORDERABLES Performing Organization Address [facility]/[address] [phone] [place] [address] LAB INR (01/29/2013 4:28 PM CDT) athologist Signature INR 0.95 0.86 - 1.14 [facility] Specimen Anatomical Collection Method Collection Time Receive d Time (Source) Location / / Volume Laterality 01/29/2013 4:28 PM 3 4:35 CDT PM CDT Jc Farr MD LAB - BLOOD ORDERABLES Performing Organization Address [facility]/[place] [address] [place], [place] [address] [address] [phone] [place] [address] LAB Comprehensive metabolic panel (01/29/2013 4:28 PM CDT) athologist Signature Sodium 139 133 - 144 [place] mmol/L [facility] Potassium 4.0 3.4 - 5.3 [place] mmol/L [facility] Chloride 101 94 - 109 [place] mmol/L [facility] Carbon Dioxide 31 20 - 32 [place] mmol/L [facility] Anion Gap 7 6 - 17 [place] mmol/L [facility] Glucose 98 60 - 99 [place] mg/dL [facility] Urea Nitrogen 16 7 - 30 [place] mg/dL [facility] Creatinine 0.77 0.52 - [place] 1.04 mg/dL [facility] GFR Estimate 73 >60 [place] mL/min/1.[address] LAB GFR Estimate If 88 >60 [place] Black mL/min/1.[address] LAB Calcium 8.9 8.5 - 10.4 [place] mg/dL [facility] Bilirubin Total 0.3 0.2 - 1.3 [place] mg/dL [facility] Albumin 3.8 3.3 - 4.9 [place] g/dL [facility] Protein Total 7.1 6.8 - 8.8 [place] g/dL [facility] Alkaline 62 40 - 150 [place] Phosphatase U/L [facility] ALT 30 0 - 50 U/L [facility] AST 28 0 - 45 U/L [facility] Specimen Anatomical Collection Method Collection Time Receive d Time (Source) Location / / Volume Laterality 01/29/2013 4:28 PM 3 4:35 CDT PM CDT Jc Farr MD LAB - BLOOD ORDERABLES Performing Organization Address City/State/ZIP Code Phon e Number M [place] [address] [place], [place] [address] [facility] (ABNORMAL) CBC with platelets differential (01/29/2013 4:28 PM CDT) [employer] Method Time Signature WBC 7.4 4.0 - [place] 11.0 [facility] 10e9/L [facility] RBC Count 4.42 3.8 - 5.2 [place] 10e12/L [facility] Hemoglobin 11.3 (L) 11.7 - [place] 15.7 g/dL [facility] Hematocrit 36.2 35.0 - [facility] 47.0 % [facility] MCV 82 78 - 100 [place] fl [facility] MCH 25.6 (L) 26.5 - [facility] 33.0 pg [facility] MCHC 31.2 (L) 31.5 - [place] 36.5 g/dL [facility] RDW 16.4 (H) 10.0 - [place] 15.0 % [facility] Platelet Count 221 150 - 450 [place] 10e9/L [facility] Diff Method Automated [facility] % Neutrophils 62.5 % [facility] % Lymphocytes 25.2 % [facility] % Monocytes 8.5 % [facility] % Eosinophils 3.1 % [facility] % Basophils 0.4 % [facility] % Immature 0.3 % [place] Granulocytes [facility] Absolute 4.6 1.6 - 8.3 [place] Neutrophil 10e9/L [facility] Absolute 1.9 0.8 - 5.3 [place] Lymphocytes 10e9/L [facility] Absolute 0.6 0.0 - 1.3 [place] Monocytes 10e9/L [facility] Absolute 0.2 0.0 - 0.7 [place] Eosinophils 10e9/L [facility] Absolute 0.0 0.0 - 0.2 [place] Basophils [address] [place] [address] LAB Abs Immature 0.0 0 - 0.4 [place] Granulocytes [address] [place] [address] LAB Specimen Anatomical Collection Method Collection Time Receive d Time (Source) Location / / Volume Laterality 01/29/2013 4:28 PM 3 4:35 CDT PM CDT Jc Farr MD LAB - BLOOD ORDERABLES Performing Organization Address City/State/ZIP Code Phon e Number M [facility] [address] [place], [place] [address] [facility] ABO/Rh type and screen (01/29/2013 4:28 PM CDT) [facility] gist Method Time Signature ABO A [facility] RH(D) Neg [facility] Antibody Neg [place] Screen [facility] Test Valid [facility] Only At [facility] LAB Specimen 02/01/[address] [place] [address] [facility] Specimen Anatomical Collection Method Collection Time Receive d Time (Source) Location / / Volume Laterality 01/29/2013 4:28 PM 3 4:34 CDT PM CDT Jc Farr MD LAB - BLOOD BANK TEST ORDER Performing Organization Address City/State/ZIP Code Phon e Number M [facility] [address] [place], [place] [address] [facility] documented in this encounter Visit Diagnoses Not on filedocumented in this encounter Care Teams Tie Carrier Relationship Specialty Start Date End Date Arlin López PCP - General Internal Medicine 01/18/13 11/14/17 [facility] [address] [place] [address] documented as of this encounter
--- OUTSIDE RECORDS SUMMARY | 2022-01-25 09:36 | XMS_ITS | Encounter Summary ---
:1935 Author Organization [facility] Address [address] [place] [address]. [place] [address] Care Team Providers Name Role Phone Unavailable Primary Care Provider Unavailable Encounter Details Date Type Department Care Team Description 01/09/2010 Office Visit-[facility] INTERFACE [facility] DEPT Provider, [facility] Nurs e Social History Tobacco Use Types Packs/Day Years Used Date Never Assessed Sex Assigned at Date Recorded Not on file documented as of this encounter Progress Notes Provider, [facility] Nurse - 01/09/2010 10:30 AM CDT Social Worker Assistant: Bekah Leigh Status: Final - Signature Encounter: [...] by:Bekah Leigh R.N. Jan 09 2010 10:40AM DRAWING KILN SUPERVISOR Review documented in this encounter Plan of Treatment Not on filedocumented as of this encounter Visit Diagnoses Not on filedocumented in this encounter
--- OUTSIDE RECORDS SUMMARY | 2022-01-25 09:36 | XMS_ITS | Encounter Summary ---
:1935 Author Organization [place] Address [facility] [address] Care Team Providers Name Role Phone Arlin López Primary Care Provider Reason for Visit Reason Onset Date Comments Referral 02/02/2013 MTM Encounter Details Date Type Department Care Team Description 02/02/2013 Telephone [facility] Pharm D Hilton López Referral (MTM) Project [facility] [address] [place] [address] [address] [place], [place] [phone] [place] [phone] (Wo rk) Social History Tobacco Use Types [...] Care (recent hospital discharge or ED visit) [facility] referral outreach attempt #1 on February [...] on filedocumented in this encounter Care Teams Veneer Clipper Helper Relationship Specialty Start Date End Date Arlin López PCP - General Internal Medicine 01/18/13 11/14/17 [facility] [address] [place] [address] documented as of this encounter
--- OUTSIDE RECORDS SUMMARY | 2022-01-25 09:36 | XMS_ITS | Encounter Summary ---
:1935 Author Organization [place] Address [facility] [place] [address] Care Team Providers Name Role Phone Arlin López Primary Care Provider Reason for Visit Auth/Cert - Closed Specialty Diagnoses / Procedures Referred By Contact Refer red To Contact Surgery Diagnoses Right shoulder degenerative joint disease Rh Periop Se rvices Procedures ARTHROPLASTY SHOULDER REVERSE ARTHROPLASTY SHOULDER> [address] [place] [address] [phone] Fax: Referral ID Status Reason Start Date Expiration Date Visits Requ ested Visits Authorized [id number] Closed 1 1 Encounter Details Date Type Department Care Team Description 01/30/2013 Surgery [facility] Evy Farr MD Right Reverse Total Ridges PeriOp Servic es [facility] Shoulder Arthroplasty [address] [facility] [place], [place] [address] [place] [id number] [address] [place] [address] (Wo rk) Surgery Details Date/Time Status Location [...] Farr MD - 02/01/2013 10:44 AM CDT [facility] Discharge Summary Fawad Unger [id number] Age: [age] year old 1935 Date of [...] Regular Discharge activity: Activity as tolerated Sling time study analyst except for showering and dressing or [...] Call received this morning from Mery at [facility] informing that they have no openings there. Pt and had identified [facility] as facility for consideration, assessment completed and they will be able to accept pt there. As arrangements were being finalized for pt's transfer, with providing transport, [facility] front office coordinator called informing that they do have be available. Pt has requested that arrangements be made for her transfer to [facility], arrangements were adjusted and pt discharged to that facility for rehab stay with providing transport ( @ 1015) as noted. With discharge today, no furtehr SWS. Brittani Hinds LSW - 02/01/2013 3:18 PM CDT SWS D: Discharge planning continuing.. Discussed with who informs of plan for pt's transefr tomorrowto rehab facility. [facility] LT has no openings, awaiting calls back from [facility] to determine if they have opening [...] other rehab facilities, they have indicated that [place], or maybe [facility] as son lives in that area. SW [...] Baer MD - 02/01/2013 10:42 AM CDT [facility] Hospitalist Progress Note Assessment and Plan: Patient is a 77 year old female who is POD 1 s/p reverse total shoulder arthroplasty, right 1. Hypertension: BP on the high side. Continue on IVORY POLISHER clonidine with parameters. Will continue to monitor blood pressure 2. GERD: Continue on IVORY POLISHER omeprazole and famotidine 3. Asthma: has no wheezes. Will continue IVORY POLISHER QVAR and Proair inhalers, she has brought them from home. 4. Postherpetic neuralgia: Continue on IVORY POLISHER gabapentin 5. Hypothyroidism: Continue on IVORY POLISHER levothyroxine 6. S/p reverse total shoulder arthroplasty: [...] date of discharge: 02/02/13 Evy Farr MD [phone] Adia Colorado MD - 01/31/2013 3:50 PM CDT [facility] Hospitalist Progress Note Assessment and Plan: Patient is a 77 year old female who is POD 0 s/p reverse total shoulder arthroplasty, right 1. Hypertension: Elevated. Continue on IVORY POLISHER clonidine with parameters. Patient makes it clear that she wishes to have no other medications added to her regimen. 2. GERD: Continue on IVORY POLISHER omeprazole and famotidine 3. Asthma: No wheezing currently, well controlled. Resume IVORY POLISHER QVAR and Proair inhalers, she has brought them from home. 4. Postherpetic neuralgia: Continue on IVORY POLISHER gabapentin 5. Hypothyroidism: Continue on IVORY POLISHER levothyroxine 6. Low-grade temperature. No signs of [...] lives with her in their apartment in [place], prior to surgery she had been independent with ambulation and ADLs. I: Met with pt and , they affirm plan for pt's transfer to rehab facility and identify [facility], and [facility] as facility preferences.. they have spoken [...] Transfer Skill: Sit to Stand Level of Harvey: Sit/Stand moderate assist (50% patients effort) Physical Assist/Nonphysical Assist: Sit/Stand set-up required;supervision;verbal cues;nonverbal cues(demo/gestures);1 person assist Transfer Skill: Toilet Transfer Level of Harvey: Toilet moderate assist (50% patients effort) Physical Assist/Nonphysical Assist: Toilet set-up required;supervision;verbal cues;nonverbal cues (demo/gestures);1 person assist Balance Balance Comments decreased balance upon standing and mobility in bed Upper Body Dressing Level of Harvey: Dress Upper Body maximum assist (25% patients effort) Lower Body Dressing Level of Harvey: Dress Lower Body maximum assist (25% patients effort) Toileting Level of Harvey: Toilet moderate assist (50% patients effort) Grooming Level of Harvey: Grooming moderate assist (50% patients effort) Eating/Self Feeding Level of Harvey: Eating moderate assist (50% patients effort) (pt's [...] a pt request to see a hospital reiki practitioner. Pt was lying in bed awake with her in the room. INTERVENTION: Pt reported being in a lot of pain from the surgery. Pt reported being involved with their mariaelena. Ptmentioned that their youth counselor was with them yesterday during the surgery. Pt shared about their children and how they are a support network for them. Pt shared that her and her find hilda in volunteering at a school together. Pt asked for prayer, and we prayed in the room. Pt mentioned being nauseous from the pain. Cloth Trimmer Hand offered supportive listening and encouragement to pt for their treatment and recovery. ASSESSMENT: Pt seemed to be well supported by her mariaelena community, and her PLAN: Continue to pray for the pt. Cloth Trimmer Hand availability upon request Saul Tellez Cloth Trimmer Hand Manager Wellness Pager [phone] Candy Lopez, PT - 01/31/2013 10:23 AM CDT 01/31/13 0900 Quick Adds Type of Visit Initial PT Evaluation Living Environment (R) Lives With spouse Living Arrangements apartment (senior housing) Living Environment Comment [place]. Pt has supportive . Self-Care Dominant Hand [...] no complaints. Pain controlled. 1. Hypertension: Resume IVORY POLISHER clonidine with parameters 2. GERD: Resume IVORY POLISHER omeprazole and famotidine 3. Asthma: No wheezing currently, well controlled. Resume IVORY POLISHER QVAR and Proair inhalers, she has brought them from home. 4. Postherpetic neuralgia: Resume IVORY POLISHER gabapentin 5. Hypothyroidism: Resume IVORY POLISHER levothyroxine 6. S/p reverse total shoulder arthroplasty: [...] Miscellaneous Notes Pharmacy-Medication Teaching - Deborah Van [facility] - 02/02/2013 1:35 PM CDT Fawad Unger 1935 female [id number] Allergy: Food; Penicillins; Sulfa drugs; Animal dander; Aspirin; Atorvastatin; Claritin; Fosamax; Oxycodone; Perfume; Pollen extract; Smoke.; Wool fiber; and Petroleum jelly RX: Discharge Medication Consult by Pharmacist EDUCATION: Discharge Medication List Cornel Fawad Home Medication Instructions DAYANA:[id number] Printed on:02/02/13 1335 Medication Information OMEPRAZOLE PO [...] with medication reconciliation of discharge medications with IVORY POLISHER medications. MDwas contacted with any questions/concerns - no concerns. Patient was not counseled or given any education materials as discharged to a TCU facility. Plan of Care - Phuong Leon PTA - 02/02/2013 11:44 AM CDT Problem: General Rehab Plan of Care Goal: Physical Therapy Goals The patient and/or their outbound call center representative will achieve their patient-specific goals related [...] Physical Therapy Goals The patient and/or their outbound call center representative will achieve their patient-specific goals related [...] Occupational Therapy Goals The patient and/or their outbound call center representative will achieve their patient-specific goals related [...] santo with changes. Going to TCU in [place]. Plan of Care - Heather Harp RN - 02/02/2013 7:34 AM CDT Problem: IP GENERAL POC-ADULT,OB,BEHAVIORAL FVCPM Goal: Individualization/Patient-Specific Goal (Adult,OB,Behavioral The patient and/or their outbound call center representative will achieve their patient-specific goals related [...] Individualization/Patient-Specific Goal (Adult,OB,Behavioral The patient and/or their outbound call center representative will achieve their patient-specific goals related to the plan of care. The patient-specific goals include: CTS Discharge planning for transfer to rehab facility. Outcome: Improving [facility] Orthopedic Nursing Progress Note Assessment Assessment: [...] Physical Therapy Goals The patient and/or their outbound call center representative will achieve their patient-specific goals related [...] to stand with CGA. Ambulated 60' with TAB BUILDER on L. Slow steps with frequent stops pt appears a little confused at times. Seated R UE Rom toelbow and wrist with increased pain. Recommend discharge to TCU if able, otherwise TAB BUILDER and Home PT Plan of Care - [...] Occupational Therapy Goals The patient and/or their outbound call center representative will achieve their patient-specific goals related [...] Physical Therapy Goals The patient and/or their outbound call center representative will achieve their patient-specific goals related [...] Min A. Ambulated 6' to commode with TAB BUILDER. Commode transfer with CGA with independent with cares Min A for dressing. Ambulated 45' with CGA and TAB BUILDER on LUE. Pt shaky and nauseated throughout walk. RUE wrist and elbow ROM with AAROM x10. Recommend discharge to TCU secondary to increased pain, nausea for increased independece. If unable to go to TCU secondary to not having a qualifying stay would recommend TAB BUILDER and home therapies Plan of Care - Katey Valderrama RN - 02/01/2013 2:12 AM CDT Problem: IP GENERAL POC-ADULT,OB,BEHAVIORAL FVCPM Goal: Individualization/Patient-Specific Goal (Adult,OB,Behavioral The patient and/or their outbound call center representative will achieve their patient-specific goals related to the plan of care. The patient-specific goals include: CTS Discharge planning for transfer to rehab facility. Outcome: Improving Vital signs stable. Pain under control tonight, able to sleep. Assisted to bedside commode to void, voided 500ml. No c/o nausea. Rated pain at 6. CMS intact in right upper extremity. Plan of Care - Patircia Delvalle RN - 01/31/2013 11:35 PM CDT Problem: IP GENERAL POC-ADULT,OB,BEHAVIORAL FVCPM Goal: Plan of Care Review (Adult,OB,Behavioral) The patient and/or their outbound call center representative will communicate an understanding of their [...] down, casas pulled at the end of hi ranger operator and pt has been up to BR [...] Occupational Therapy Goals The patient and/or their outbound call center representative will achieve their patient-specific goals related [...] initiated; pt lives with supportive in independent penitentiary, previously I with ADLs; pt currently limited [...] Physical Therapy Goals The patient and/or their outbound call center representative will achieve their patient-specific goals related [...] Individualization/Patient-Specific Goal (Adult,OB,Behavioral The patient and/or their outbound call center representative will achieve their patient-specific goals related [...] Care Review (Adult,OB,Behavioral) The patient and/or their outbound call center representative will communicate an understanding of their [...] MD MT: [id number] Name: FAWAD UNGER Account: [id number] : 1935 Procedure Date: 01/30/2013 Document: [id number] Brief Op Note - Evy Farr MD - 01/30/2013 10:33 AM CDT [facility] Orthopedic Brief Operative Note Pre-operative diagnosis: Right shoulder degenerative joint disease Post-operative diagnosis: Same Procedure: Procedure(s): REVERSE ARTHROPLASTY SHOULDER Surgeon: Evy Farr MD Crib Pad Maker(s): none Anesthesia: Combined General with Interscalene Block [...] Signature Platelet Count 178 150 - 450 [place] 10e9/L [facility] LAB Specimen Anatomical Collection Method Collection Time Receive d Time (Source) Location / / Volume Laterality Blood specimen 02/02/2013 6:05 AM 09/20/2 013 6:23 (specimen) CDT AM CDT Evy Farr MD LAB - BLOOD ORDERABLES Performing Organization Address City/State/ZIP Code Phon e Antonia M [facility] [address] [place], [place] [address] [facility] (ABNORMAL) CBC with platelets differential (02/01/2013 6:25 AM CDT) [facility] gist Method Time Signature WBC 12.4 (H) 4.0 - [place] 11.0 [facility] 10e9/L [facility] RBC Count 4.28 3.8 - 5.2 [place] 10e12/L [facility] Hemoglobin 11.0 (L) 11.7 - [place] 15.7 g/dL [facility] Hematocrit 34.3 (L) 35.0 - [place] 47.0 % [facility] MCV 80 78 - 100 [place] fl [facility] MCH 25.7 (L) 26.5 - [place] 33.0 pg [facility] MCHC 32.1 31.5 - [place] 36.5 g/dL [facility] RDW 16.2 (H) 10.0 - [place] 15.0 % [facility] Platelet Count 216 150 - 450 [place] 10e9/[facility] LAB Diff Method Automated [facility] LAB % Neutrophils 74.8 % [facility] % Lymphocytes 11.3 % [facility] % Monocytes 11.9 % [facility] % Eosinophils 1.3 % [facility] % Basophils 0.3 % [facility] % Immature 0.4 % [place] Granulocytes [facility] Absolute 9.2 (H) 1.6 - 8.3 [place] Neutrophil 10e9/L [facility] Absolute 1.4 0.8 - 5.3 [place] Lymphocytes 10e9/L [facility] Absolute 1.5 (H) 0.0 - 1.3 [place] Monocytes 10e9/L [facility] Absolute 0.2 0.0 - 0.7 [place] Eosinophils 10e9/L [facility] Absolute 0.0 0.0 - 0.2 [place] Basophils 10e9/L [facility] Abs Immature 0.1 0 - 0.4 [place] Granulocytes 10e9/L [facility] Specimen Anatomical Collection Method Collection Time Receive d Time (Source) Location / / Volume Laterality Blood specimen 02/01/2013 6:25 AM 013 6:56 (specimen) CDT AM CDT Adia Colorado MD LAB - BLOOD ORDERABLES Performing Organization Address City/[facility]/ZIP [facility] Phon e Number [facility] [address] [place], [place] [address] [facility] LAB (ABNORMAL) Glucose (02/01/2013 6:25 AM CDT) P athologist Signature Glucose 108 (H) 60 - 99 [place] mg/dL [facility] Specimen Anatomical Collection Method Collection Time Receive d Time (Source) Location / / Volume Laterality Blood specimen 02/01/2013 6:25 AM 013 6:56 (specimen) CDT AM CDT Evy Farr MD LAB - BLOOD ORDERABLES Performing Organization Address City/[facility]/ZIP Code Phon e Number [place] [address], [place] [address] [facility] LAB (ABNORMAL) Hemoglobin (01/31/2013 5:53 AM CDT) P athologist Signature Hemoglobin 10.5 (L) 11.7 - 15.7 [place] g/[facility] LAB Specimen Anatomical Collection Method Collection Time Receive d Time (Source) Location / / Volume Laterality Blood specimen 01/31/2013 5:53 AM 013 6:10 (specimen) CDT AM CDT Evy Farr MD LAB - BLOOD ORDERABLES Performing Organization Address City/[facility] Phon e Number [facility] [address] [place], [place] [address] [facility] LAB (ABNORMAL) Glucose (01/31/2013 5:53 AM CDT) P athologist Signature Glucose 112 (H) 60 - 99 [place] mg/dL [facility] LAB Specimen Anatomical Collection Method Collection Time Receive d Time (Source) Location / / Volume Laterality Blood specimen 01/31/2013 5:53 AM 013 6:10 (specimen) CDT AM CDT Evy Farr MD LAB - BLOOD ORDERABLES Performing Organization Address City/[facility]/ZIP Code Phon e Number Erica [facility] [address] [place], [place] [address] [facility] Hospitalist IP Consult (01/30/2013 3:31 PM CDT) Evy Farr MD IP CONSULT ORDERABLES Creatinine (01/30/2013 1:00 PM CDT) athologist Signature Creatinine 0.64 0.52 - [facility] 1.04 mg/dL [facility] LAB GFR Estimate >90 >60 [place] mL/min/[address] [place] [address] LAB GFR Estimate If >90 >60 [facility] mL/min/[address] LAB Specimen Anatomical Collection Method Collection Time Receive d Time (Source) Location / / Volume Laterality Blood specimen 01/30/2013 1:00 PM 013 1:05 (specimen) CDT PM CDT Evy Farr MD LAB - BLOOD ORDERABLES Performing Organization Address City/[facility]/ZIP Code Phon camila Knight [address] [address] [facility] LAB Platelet count (01/30/2013 1:00 PM CDT) athologist Signature Platelet Count 212 150 - 450 [place] 10e9/L [facility] LAB Specimen Anatomical Collection Method Collection Time Receive d Time (Source) Location / / Volume Laterality Blood specimen 01/30/2013 1:00 PM 013 1:05 (specimen) CDT PM CDT Evy Farr MD LAB - BLOOD ORDERABLES Performing Organization Address City/[facility] Phon e Number [place] [address] [place], [place] [address] [facility] documented in this encounter Visit [...] to take PO, Post-procedure, Hold while on SINTER MACHINE OPERATOR. HYDROmorphone (DILAUDID) tablet 1-2 mg (CANCELED) 0839 (Given - Provider: Altagracia Person RN)1211 (Given - Provider: Altagracia Person, HEENA) 1-2 mg, Oral, EVERY 3 HOURS PRN, moderat e to severe pain, Starting Tue01/30/13 at 1212, Hold while on SINTER MACHINE OPERATOR or with regular IV opioid dosing., Post-procedure [...] pain documented in this encounter Care Teams General Farmer Relationship Specialty Start Date End Date Arlin López PCP - General Internal Medicine 01/18/13 11/14/17 [facility] [address] [place] [address] documented as of this encounter
--- OUTSIDE RECORDS SUMMARY | 2022-01-25 09:36 | XMS_ITS | Encounter Summary ---
:1935 Author Organization [place] Address [address] [facility] [place] [address] Care Team Providers Name Role Phone Arlin López Primary Care Provider Reason for Visit Auth/Cert - Closed Specialty Diagnoses / Procedures Referred By Contact Refer red To Contact Surgery Diagnoses Right shoulder degenerative joint disease Rh Periop Se rvices Procedures ARTHROPLASTY SHOULDER REVERSE ARTHROPLASTY SHOULDER> [address] [place], [place] [address] Fax: Referral ID Status Reason Start Date Expiration Date Visits Requ ested Visits Authorized [id number] Closed 1 1 Encounter Details Date Type Department Care Team Description 01/30/2013 Anesthesia Event [facility] Anirudh Vargas n PeriOp Services MD Jeovany [address] [place] [address] ANESTH [place] [address] [place] [address] [place], [place] [address] (Wo rk) Anesthesia Record [...] tube; Blade JORDON Hughes CRNA, APRN Type: Concepcion; Blade WINTER SPORTS MANAGER Size: 2; Place by: ps; Insertion Attempts: [...] benefits and alternatives discussed with: patient or sales representative adding machines. Possibility of blood products discussed. History & [...] NOTE Pre-Procedure Performed by Tanja Referred by FANYKS Location: pre-op. ?? PreAnesthestic Checklist: patient identi [...] gloves Nerve Stim: Initial Level 0.7 mA. [place] t motor response mA. Needle: insulated, short [...] gloves Nerve Stim: Initial Level 0.7 mA. [place] t motor response mA. Needle: insulated, short bevel (20 G, 2 in). Spinal Needle: (). Insertion Method: Single Shot Assessment/Narrative Injection made incrementally with aspira tions every 5 mL. The placement was negative for: blood as pirated, painful injection and site bleedingParesthesia's: Yes and Resolved. Test dose of mL at. Test dose negative for signs of intravas cular, subdural or intrathecal injection. Leon Vargas MD [place] ANESTHESIA documented in this encounter Visit Diagnoses [...] Pre-procedure documented in this encounter Care Teams Production Posting Clerk Relationship Specialty Start Date End Date Arlin López PCP - General Internal Medicine 01/18/13 11/14/[address] [address] documented as of this encounter
--- OUTSIDE RECORDS SUMMARY | 2022-01-25 09:36 | XMS_ITS | Encounter Summary ---
:1935 Author Organization [place] Address [address] [place] [address]. [place] [address] Care Team Providers Name Role Phone Unavailable Primary Care Provider Unavailable Encounter Details Date Type Department Care Team Description 12/15/2009 Office Visit-[facility] Ear, Nose and Th[facility] Wilfredo Sanchez MD Clinic [address] [facility] 8th Floor, Clinic [address] [place] [address] [address] Social History Tobacco Use Types Packs/Day Years Used Date Never Assessed Sex Assigned at Date Recorded Not on file documented as of this encounter Progress Notes Cynthia Sanchez - 12/15/2009 10:00 AM CDT Mother'S Helper: Cynthia Sanchez Status: Final - Signature Encounter: 15 Dec 2009 Type: ENT Letter Department of Otolaryngology--Head and Neck Surgery [place] Mail Code [address] [place] [address] Office: [address] December 15, 2009 Vibha Alvarez MD [address] [address] RE: Ally Unger : 1935 YASEMIN: December [...] will help confirm central dysfunction and may orange picker machine operator a vestibular asymmetry. If she continues to have central dysfunction, then my recommendation to her would be to undergo vestibular rehabilitation. In the meantime she is going to do some balance training with one of the personal trainers that comes to their [facility]. Thank you again for your consultation. Please note that the entire 45 minutes of this 50 minute visit were all spent in consultation. Sincerely, Cynthia Sanchez M.D. Department of Otolaryngology TH:carla Electronically signed by:Cynthia Sanchez M.D. Dec 17 2009 1:27PM FILLER BLOCK INSERTER REMOVER documented in this encounter Plan of Treatment Not on filedocumented as of this encounter Visit Diagnoses Not on filedocumented in this encounter
[2022-01-25 15:11] LABS: Albumin* 4.1 g/dL (3.3-5.0); Chloride* 99 mmol/L (96-114)
[2022-01-25 15:12] LABS: Sodium* 137 mmol/L (135-149)
[2022-01-25 15:14] LABS: Aspartate Amino Transferase* 27 U/L (12-35); Bilirubin Total* 0.3 mg/dL (0.1-1.5); Carbon Dioxide* 31 mmol/L (20-32); Estimated Glomerular Filt Rate 55 ml/min; Total Protein* 7.1 g/dL (6.0-8.3)
[2022-01-25 15:15] LABS: Alanine Aminotransferase* 17 U/L (4-35); Alkaline Phosphatase* 62 U/L (40-150); Blood Urea Nitrogen* 17 mg/dL (7-30); Calcium* 8.9 mg/dL (8.4-10.6); Glucose* 154 mg/dL (60-115)
== END 2022-01-25 18:51 | disposition home or self-care (01) ==
PROVIDERS: PCP Family Medicine; Visit Provider Family Medicine
DX: Z00.00 Encounter for general adult medical examination without abnormal findings (principal); E03.9 Hypothyroidism, unspecified; E11.9 Type 2 diabetes mellitus without complications; E78.5 Hyperlipidemia, unspecified; F41.9 Anxiety disorder, unspecified; I10 Essential (primary) hypertension
CPT/HCPCS: 80053; 84443

== ENCOUNTER 2022-02-23 04:08 | Outpatient (CLI) | payer MEDICARE, OTHER, SELFPAY | END 2022-02-23 04:09 | disposition home or self-care (01) | LOC: AMB 03-02 08:06 | PROVIDERS: PCP Family Medicine; Visit Provider Family Medicine | DX: R07.89 Other chest pain (principal) | CPT/HCPCS: A0425; A0429 ==

== ENCOUNTER 2022-02-23 04:48 | Emergency (ER) | payer MEDICARE, OTHER, SELFPAY ==
[2022-02-23 04:50] VITALS: BP 214/158; PULSE 66; RESP 18; TEMP 37.1; O2SAT 97; BMI 24.5
[2022-02-23 05:00] VITALS: BP 222/96; PULSE 64; RESP 16; O2SAT 97
[2022-02-23 05:20] VITALS: BP 230/99
--- NOTE | 2022-02-23 05:29 | CRLHL7_ITS ---
For Patients: As a result of the Century Cures Act, medical imaging exams and procedure reports are released immediately into your electronic medical record. You may view this report before your referring provider. If you have questions, please contact your health care provider. INDICATION: Hypertensive urgency COMPARISON: April 27, 2019 TECHNIQUE: Two views of the chest were acquired FINDINGS: TUBES AND LINES: None. HEART AND MEDIASTINUM: Heart size top normal. Normal mediastinal contour. Similar appearance to the prior exam. LUNGS AND PLEURAL SPACES: The lungs appear normal.The pleural spaces are unremarkable. OSSEOUS STRUCTURES: Demineralization, degenerative changes and kyphosis. Right shoulder arthroplasty. IMPRESSION: No evidence of active pulmonary disease when compared April 27, 2019. Dictated by Armaan Tomlin MD @ 02/23/2022 6:34:31 AM (Electronically Signed)
[2022-02-23] MEDS: LORazepam 0.5 MG TABLET 0.25 MG PO (05:42)
--- NOTE | 2022-02-23 05:46 | ED_ITS ---
HPI - General Adult General Chief complaint: High Blood Pressure Stated complaint: High blood pressure Time Seen by Provider: 02/23/22 05:11 Source: patient and family Mode of arrival: EMS Limitations: no limitations History of Present Illness HPI narrative: 86-year-old female with a known history of difficult to control blood pressure and multiple medication allergies presents with feeling generally unwell. She is not able to elaborate further on her symptoms but overall states that she simply ?did not feel right?. When asked 1st specifics, she said that she had a very mild headache that lasted only a few minutes around 3:00 a.m. but that she had been unable to sleep that night, citing some anxiety. She is prone to anxiety and has been prescribed lorazepam in the past but did not take the medication. She has a known history of hypertension which could even more difficult to control when her sodium levels are off. She denies confusion. Typically if her sodium levels get low, she has vertigo symptoms which she is not currently noting. She denies chest pain or palpitations. She tried checking her blood pressure at home and it was 218/105. Similar blood pressure in the 200s over 70s here in the hospital. She denies any neurological changes, no difficulty walking, no vision changes, no speech changes. agrees. They have had no recent medication changes or done anything out of there typical routine. She takes clonidine for her hypertension 0.05 mg twice daily. When her blood pressure gets above 165, she is to take an additional half tablet as well. She did take the half tablet as directed about a 1/2 hour prior to calling EMS and did not notice improvement in her blood pressure. She otherwise states that she has recently been well, no fevers, no injuries, no new concerns. She states that in similar previous visits when her blood pressure has been high, she has been given lorazepam with good improvement in her symptoms. Past medical history is very extensive. Thankfully she travels with extensive medical records. 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 GERD, hypothyroidism, depression, osteoporosis, hypertension, hyponatremia, new cheek area, anxiety, and diet-controlled diabetes. She also has a history of anemia, post herpetic neuralgia, hiatal hernia and gastroparesis which are not under treatment. She has extensive allergies and these are reviewed and updated into her records. Her surgeries include tonsillectomy adenoidectomy, 2 prior D and C's, shingles, right shoulder replacement. Vaccines appear up-to-date. Socially she is a nonsmoker, lives independently. ROS is notable for the generalized and hypertensive symptoms with mild headache as above, otherwise denies times 12 systems today. Related Data Home Medications Medication Instructions Recorded Confirmed prednisone 5 mg tablet 5 mg PO QAM 12/10/21 02/23/22 calcium carbonate 300 mg (750 mg) 300 mg PO .prn PRN 01/28/22 02/23/22 chewable tablet (Tums E-X) calcium carbonate 600 mg calcium 600 mg PO QDAY 01/28/22 02/23/22 (1,500 mg) tablet (Calcium) lifitegrast 5 % eye drops in a 1 drp ophthalmic (eye) Q12H PRN 01/28/22 02/23/22 dropperette (Xiidra) lorazepam 0.5 mg tablet 0.5 mg PO DAILY PRN anxiety 01/28/22 02/23/22 multivitamin (Daily Multi-Vitamin 1 tab PO QAM 01/28/22 02/23/22 tablet) sodium chloride 0.65 % nasal spray 1 spray intranasal .prn 01/28/22 02/23/22 aerosol (Saline Nasal) chlorpheniramine maleate 4 mg 2 mg PO Q12H PRN allergy symptoms 02/23/22 02/23/22 tablet (Allergy (chlorpheniramine)) omeprazole 20 mg capsule,delayed 20 mg PO BID 02/23/22 02/23/22 release Previous Rx's Medication Instructions Recorded albuterol sulfate 90 mcg/actuation 2 puff inhalation .Q12 shortness 01/28/22 aerosol inhaler of breath or wheezing #6.7 grams clonidine HCl 0.1 mg tablet 0.05 mg PO Q12H PRN hypertension 01/28/22 #180 tabs fluticasone propionate 110 2 inh inhalation BID #12 grams 01/28/22 mcg/actuation HFA aerosol inhaler (Flovent HFA) levothyroxine 25 mcg tablet 25 mcg PO DAILY #90 tabs 01/28/22 ondansetron 4 mg disintegrating 4 mg PO BID-TID PRN nausea and 09/15/22 tablet vomiting #30 tabs sertraline 50 mg tablet 50 mg PO QPM #90 tabs 01/28/22 Allergies Allergy/AdvReac Type Severity Reaction Status Date / Time codeine Allergy Severe Hallucinati Verified 02/23/22 05:07 ng hydrocodone Allergy Severe confusion/h Verified 02/23/22 05:07 allucinatin g oxycodone Allergy Severe Confusion Verified 02/23/22 05:07 penicillin V Allergy Severe Anaphylaxis Verified 02/23/22 05:07 rosuvastatin Allergy Severe Swelling Verified 02/23/22 05:07 of Lip/Tongue/Throat amlodipine Allergy Intermediate Flushing Verified 01/28/22 13:56 bisacodyl Allergy Intermediate rash/scalp, Verified 01/28/22 13:56 [From Dulcolax (bisacodyl)] redness to eyelid hydromorphone Allergy Intermediate mental Verified 01/28/22 13:56 changes lisinopril Allergy Intermediate itchy Verified 01/28/22 13:56 metformin Allergy Intermediate nausea, Verified 01/28/22 13:56 diarrhea atorvastatin Allergy Mild Rash Verified 02/23/22 05:11 calcitonin Allergy Mild Rash Verified 01/28/22 13:56 loratadine Allergy Mild Rash Verified 01/28/22 13:56 lorazepam Allergy severe Verified 02/23/22 05:11 hallucinations montelukast Allergy Hallucinati Verified 02/23/22 05:11 ng peas Allergy Anaphylaxis Verified 02/23/22 05:11 alendronate Allergy Intermediate Uncoded 01/28/22 13:56 asprin Allergy Mild Rash Uncoded 01/28/22 13:56 petrolatum Allergy Rash Uncoded 01/28/22 13:56 sulfa drugs Allergy Anaphylaxis Uncoded 01/28/22 13:56 [facility] Medical History (Updated 02/23/22 @ 06:41 by Maame Blanco MD) Aspirin allergy Benign gastric polyp Chronic nausea Chronic vertigo Diabetes mellitus Diverticulitis large intestine w/o perforation or abscess w/o bleeding Dysthymia Environmental allergies Epistaxis Functional dyspepsia Health care directive on file History of chronic eczema Hyponatremia Iron deficiency anemia Perforated nasal septum Personal history of gallstones Statin intolerance Temporal headache Tetanus vaccine side effect Throat clearing Thyroid nodule Surgical History (Updated 12/16/21 @ 10:26 by Loren Beyer MD) History of dilation and curettage History of esophageal dilatation (2018) History of revision of total shoulder arthroplasty (2013) History of tonsillectomy and adenoidectomy Family History Mother Depression Osteoarthritis Daughter Depression Sister Hypothyroidism Father No problems noted. Social History Narrative: does not drink alcohol exercises regularly - 2 adult daughters, little/no contact, closest to foster son KAMRON, independent living [facility] non-smoker Smoking Status: Never smoker How often do you have a drink containing alcohol: never AUDIT-C Alcohol total score: 0 Non-prescribed substance use: denies use Little interest or pleasure in doing things: not at all Feeling down, depressed, or hopeless: several days Exam Const: Vital Signs, click to edit/add: Vital Signs - 24 hr 02/23/22 04:50 Temperature 98.7 F Pulse Rate [Right Pulse Oximeter] 66 Respiratory Rate 18 Blood Pressure [Le ft Upper Arm] 214/158 H Pulse Oximetry 97 Oxygen Delivery Me thod Room Air Documenting provider has reviewed patient's vital signs: yes Common normals: no apparent distress General appearance: cooperative, comfortable and well kempt Orientation/consciousness: Yes awake, Yes oriented to person, Yes oriented to place and Yes oriented to time Other: She is a good historian, well nourished well groomed. Very petite stature, articulate. HENMT: Common normals: normocephalic Head and scalp: normocephalic Mouth: oral and palatal mucosa normal Throat: posterior oropharynx normal Eye: Common normals: PERRL, EOMs intact bilaterally, conjunctivae normal and no scleral icterus Conjunctiva: conjunctiva(e) normal Pupil: PERRL Neck & C-Spine: Common normals: full ROM and no lymphadenopathy Resp: Common normals: normal respiratory effort, no use of accessory muscles and clear to auscultation bilaterally Auscultation: clear to auscultation bilaterally Other: Reduce overall air movement suspicious for chronic restrictive lung disease but breath sounds are clear and nonlabored. Cardio: Common normals: regular rate, regular rhythm, S1 normal heart sound, S2 normal heart sound, no murmurs and peripheral pulses 2+ throughout Rate: regular rate Rhythm: regular rhythm Heart sounds: S1 normal and S2 normal Peripheral pulses: pulses 2+ throughout GI: Common normals: Normal to inspection, nondistended, normoactive bowel sounds present, soft to palpation, non-tender, no hepatosplenomegaly and no masses Palpation: soft and no hepatosplenomegaly Extremity: Common normals: normal capillary refill and no pedal edema Neuro: Sensorium/orientation: awake, oriented to person, oriented to place and oriented to time Speech: speech normal Gait (neuro): normal gait; not ataxic Motor exam: strength 5/5 throughout, no pronator drift, no tremor noted, muscle tone normal throughout and no movement abnormalities noted; no tremor Psych: Common normals: cooperative and speech normal Appearance: well kempt Attitude: engaged Activity/motor behavior: appropriate eye contact Speech: normal speech Mood and affect: anxious (Mildly anxious, seems like this would be typical for her.) Thought content: normal thought content Attention/concentration: attention grossly intact Memory/cognition: memory grossly intact Insight: insight good Judgement: judgment good Skin: Common normals: no rashes or lesions noted General skin exam: no rashes or lesions noted Course Vital Signs Vital signs: Initial Vital Signs Temperature 98.7 F 02/23/22 04:50 Temperature Source Temporal Artery Scan 02/23/22 04:50 Pulse Rate 66 02/23/22 04:50 Respiratory Rate 18 02/23/22 04:50 Blood Pressure 214/158 H 02/23/22 04:50 Blood Pressure Mean 176 02/23/22 04:50 Blood Pressure Position Supine 02/23/22 04:50 Pulse Oximetry 97 02/23/22 04:50 Oxygen Delivery Method 02/23/22 04:50 Vital Signs Temperature 98.7 F 02/23/22 04:50 Pulse Rate 66 02/23/22 04:50 Respiratory Rate 18 02/23/22 04:50 Blood Pressure 214/158 H 02/23/22 04:50 Pulse Oximetry 97 02/23/22 04:50 Oxygen Delivery Method 02/23/22 04:50 Temperature 98.7 F 02/23/22 04:50 Pulse Rate 66 02/23/22 04:50 Respiratory Rate 18 02/23/22 04:50 Blood Pressure 214/158 H 02/23/22 04:50 Pulse Oximetry 97 02/23/22 04:50 Oxygen Delivery Method 02/23/22 04:50 Medical Decision Making MDM Narrative Medical decision making narrative: Working diagnosis is hypertensive urgency based on highly elevated blood pressures with headache which has now resolved. No signs of significant neurological injury or end-organ damage at this time but certainly high risk for such with her markedly elevated blood pressures. Based on prior episodes, will begin with a small dose of lorazepam, I recommend 0.25 mg. If this is not effective in lowering her blood pressure, will give additional clonidine. Consider nitrates. EKG will be performed, chest x-ray, basic labs while we await lowering of her blood pressures. Differential diagnosis also includes stroke, hypertensive emergency, acute ME, medication reaction or error, electrolyte abnormality or chronic kidney disease. High risk for pulmonary hypertension causing her blood pressures elevate based on her prior medical history as well. Review of the records from November show that her blood pressure was similar at that visit to her current level. Updates 6:40 a.m.: Patient has had some improvement of her blood pressure with the lorazepam, will give 0.05 of clonidine p.o. x1. Her headache has resolved and she has not been experiencing any neurological changes. The lab findings and chest x-ray findings are reviewed with her. I do recommend potassium replacement and we discussed plan of care for clonidine half tablet every 3 hours as needed for elevated blood pressures. All questions were answered, no further concerns. Normal troponins an EKG reviewed with patient as well. I would like for her to follow up with Dr. Siddiqi in 1-2 weeks to further review her blood pressures Medical Records Medical records reviewed: Yes I reviewed the patient's medical records Medical records narrative: Consistent with her stated history Lab Data Lab results reviewed: Yes I reviewed the patient's lab results Labs: Lab Results 02/23/22 02/23/22 02/23/22 Range/Units 05:45 05:45 05:45 WBC 8.30 (4.50-11.00) K/uL RBC 5.01 (4.00-5.20) m/uL Hgb 13.6 (12.0-16.0) gm/dL Hct 41.8 (33.0-51.0) % MCV 83 (80-100) fL MCH 27 (26-34) pg MCHC 33 (32-36) gm/dL RDW Coeff of Eric 13.2 (11.5-15.5) % Plt Count 233 (140-440) K/uL Neut % (Auto) 64.1 (42.0-72.0) % Lymph % (Auto) 22.4 (20-44) % Overton % (Auto) 8.9 (0.0-11.0) % Eos % (Auto) 3.6 (0.0-7.0) % Baso % (Auto) 0.6 (0.0-3.0) % Neut # (Auto) 5.32 (1.7-7.0) K/uL Lymph # (Auto) 1.86 (0.90-2.90) K/uL Overton # (Auto) 0.70 (0.00-0.90) K/UL Eos # (Auto) 0.30 (0.00-0.50) K/uL Baso # (Auto) 0.05 (0.00-0.30) K/uL Abs Immat Gran (auto) 0.03 (0.00-0.30) K/uL Sodium 137 (135-149) mmol/L Potassium 3.3 L (3.6-5.1) mmol/L Chloride 101 (96-114) mmol/L Carbon Dioxide 28 (20-32) mmol/L BUN 18 (7-30) mg/dL Creatinine 0.8 (0.5-1.5) mg/dL Estimated Creat Clear 34.46 Estimated GFR 72 ml/min Glucose 99 (60-115) mg/dL Calcium 9.8 (8.4-10.6) mg/dL NT-Pro-B Natriuret Pep 153 (0-450) PG/mL POC Troponin I 0.00 L (0.01-0.04) ng/ml Imaging Data Chest x-ray: Attestation: I have reviewed the pertinent imaging results. ECG Data Attestation: I personally reviewed and interpreted this ECG as follows: Interpretation: Normal sinus rhythm with no significant ST or T-wave abnormalities. Normal R- wave progression with normal axis, no signs of ischemia or arrhythmia. Discharge Plan Discharge Clinical Impression: Hypertensive urgency Patient Disposition: Home w/ Parent or Adult Condition: Improved Instructions: Hypertensive Crisis (ED) Additional Instructions: As we discussed, your chest x-ray, EKG and blood work are overall reassuring, this is great news. Your potassium was borderline low. I do not think that this caused her symptoms today but lower and potassium levels do tend to correlate with higher blood pressures. We elected to replace this but it does not need to be repeated other than at your typical every few months intervals. As we age, our blood pressure becomes more erratic. For those on clonidine, this is even more bothersome. I suspect you will continue to have more these episodes as you have had 2 episodes within the past 3 months at our facility. F or now, I would like for you to continue on your typical dosing of clonidine with the same parameters to take an extra dose if your blood pressure remains persistently over 165 systolic. I would like to add is that I would like for you to keep taking an additional half tablet of the 0.1 mg every 3 hours if your blood pressure remains persistently elevated over 170. This means that you may take 4 or 5 doses in a day. If we find that your blood pressure seems to need a higher dose overall, she may increase you to the 0.1 mg more often. As we also discussed many of the blood pressure medicines are not ideal because of your allergy profile, previous intolerance and chronic lung disease. The 1 class but I would encourage you to consider if we are not able to get things under good control on clonidine is a long-acting nitrate. An investigation with an echo for pulmonary hypertension may be useful as well. Today, you will continue taking all of your medications as normal, including your morning dose of clonidine when you get home. Activity Level: No Restrictions Discharge Diet: Diabetic Prescriptions: No Action calcium carbonate [Tums E-X] 300 mg (750 mg) tablet,chewable 300 mg PO .prn PRN calcium carbonate [Calcium 600] 600 mg calcium (1,500 mg) tablet 600 mg PO QDAY Xiidra 5 % dropperette 1 drp ophthalmic (eye) Q12H PRN Saline Nasal 0.65 % aerosol,spray 1 spray intranasal .prn multivitamin [Daily Multi-Vitamin] Tablet 1 tab PO QAM sertraline 50 mg tablet 50 mg PO QPM Qty: 90 4RF levothyroxine 25 mcg tablet 25 mcg PO DAILY Qty: 90 4RF clonidine HCl 0.1 mg tablet 0.05 mg PO Q12H PRN (Reason: hypertension) Qty: 180 4RF Rx Instructions: additional half tablet in SBP 165 fluticasone propionate [Flovent HFA] 110 mcg/actuation HFA aerosol inhaler 2 inh inhalation BID Qty: 12 12RF Rx Instructions: administer with spacer albuterol sulfate 90 mcg/actuation HFA aerosol inhaler 2 puff INHALATION .Q12 Qty: 6.7 12RF ondansetron 4 mg tablet,disintegrating 4 mg PO BID-TID PRN (Reason: nausea and vomiting) Qty: 30 4RF chlorpheniramine maleate [Allergy (chlorpheniramine)] 4 mg tablet 2 mg PO Q12H PRN (Reason: allergy symptoms) Rx Instructions: do not exceed 2 doses per 24 hrs omeprazole 20 mg capsule,delayed release(DR/EC) 20 mg PO BID prednisone 5 mg tablet 5 mg PO QAM Label Comments: TAKE ONE TABLET BY MOUTH EVERY DAY lorazepam 0.5 mg tablet 0.5 mg PO DAILY PRN (Reason: anxiety) Label Comments: TAKE ONE TABLET BY MOUTH (0.5MG) DIRECTED NEEDED NO MORE THAN 1 TABLET (0.5MG) PER DAY Follow Up/Referrals: Loren Beyer MD [Primary Care Provider] - 2 Weeks (Blood pressure recheck, review of clonidine management) Stand Alone Forms: [employer] Info Instructions
[2022-02-23 05:57] LABS: Basophils Absolute Auto 0.05 K/uL (0.00-0.30); Basophils Percent Auto 0.6 % (0.0-3.0); Eosinophils Percent Auto 3.6 % (0.0-7.0); Hematocrit 41.8 % (33.0-51.0); Hemoglobin* 13.6 gm/dL (12.0-16.0); Immature Granulocytes Abs Auto 0.03 K/uL (0.00-0.30); Lymphocytes Absolute Auto 1.86 K/uL (0.90-2.90); Lymphocytes Percent Auto 22.4 % (20-44); Mean Corpuscular HGB Conc 33 gm/dL (32-36); Mean Corpuscular Hemoglobin 27 pg (26-34); Mean Corpuscular Volume 83 fL (80-100); Monocytes Percent Auto 8.9 % (0.0-11.0); Neutrophils Absolute Auto 5.32 K/uL (1.7-7.0); Neutrophils Percent Auto 64.1 % (42.0-72.0); Platelet Count* 233 K/uL (140-440); RDW Coefficient of Variation % 13.2 % (11.5-15.5); Red Blood Count 5.01 m/uL (4.00-5.20); Slide Review Reflex No
--- OUTSIDE RECORDS SUMMARY | 2022-02-23 06:16 | XMS_ITS | Encounter Summary ---
:1935 Author Organization [place] Address [address] [facility] [place] [address] Care Team Providers Name Role Phone Loren Beyer MD Primary Care Provider [phone] Reason for Visit Auth/Cert Specialty Diagnoses / Procedures Referred By Contact Refer red To Contact Gastroenterology Diagnoses DYSPHAGIA Sh Endoscopy Procedures COMBINED ESOPHAGOSCOPY, GASTROSCOPY, DUODENOSCOPY (EGD), DILATATION [address] [place] [address] Phone: Referral ID Status Reason Start Date Expiration Date Visits Requ ested Visits Authorized [id number] 1 1 Encounter Details Date Type Department Care Team Description 11/25/2017 Surgery [facility] Antonette Sebastian ESOPHAGO GASTRODUODENOSCOPY WITH Melanie Herzog MD DILATION (MAC) [place] [address] [place] [address] [address] [facility] [phone] [place] [address] Surgery Details Date/Time Status Location OR Service Patient Class Case Case Trauma Class Type Case? 11/25/17 8:00 Posted GI GI SP Gastroenterology Outpatient AM 01 Panel 1 Procedure LRB Anes Op Region Wound Class Commen ts ESOPHAGOGASTRODUODENOSCOPY N/A MAC Esophagus II-Clean ESOPHAGOGASTRODUODENOSCOPY WITH DILATION (MAC) Contaminated WIT H DILATION (MAC) #17 savory N/A Esophagus II-Clean #17 savory Contaminated Surgeon Surgeon Role Service Panel Antonette Sebastian MD Primary Gastroenterology 1 Special Needs PT HAS SEVERE ASTHMA TO POINT WHERE SHE HAS BEEN HOSPITALIZED documented in this encounter Social History Tobacco Use Types Packs/Day Years Used Date Smoking Tobacco: Never Smokeless Tobacco: Never Alcohol Use Standard Drinks/Week Comments No 0 [...] Component Value Ref Test Analysis Performed At [facility] Range Method Time Signature Copath Report Patient Name: FAWAD CELESTE MR#: [id number] Specimen #: [id number] Collected: 11/25/2017 Received: 11/25/2017 Reported: 11/28/2017 10:45 [...] substantiates the final diagnosis. CPT Codes: A: 92386-FM9 B: 41703-JJ1 C: 44860-ZA7 D: 60652-QM3 TESTING LAB LOCATION: [address] ??[id number] COLLECTION SITE: Client: [facility] Specimen (Source) Anatomical Collection Method Collection [...] / biopsy (specimen) Unknown Antonette Sebastian MD [facility] Performing Organization Address City/State/ZIP Code Phon e Number [facility] ENDOS[facility] (11/25/2017 7:16 AM CDT) Component Value Ref Test Analysis Performed At [facility] Range Method Time Signature Upper GI [facility] RADIOLOGY Endoscopy [facility] Endoscopy Department RESULTS Patient Name: Fawad Celeste ? Procedure Date: 11/13 7:16 AM ? Accou nt Number: [id number] Date of : 1935 ?Admit Type: Out [...] Procedure Code(s): ? --- Professional --- ? 34305, Esophagogastroduodenoscopy, flexib le, transoral; with insertion ? of guide wire followed by passage of dila tor(s) through esophagus over ? guide wire ? 03400, 59, Esophagoga stroduodenoscopy, flexible, transoral; with biopsy, ? single or multiple CPT copyright 2017 [employer]. All rights reserved. The codes documented in this report are prelimin wilner and upon inpatient coder review may be revised to meet current compliance requirements. Signed electronically by Antonette Mccoy MD Antonette Sebastian MD 11/25/2017 8:46:16 AM I was physically present for the entire viewing portion of t he exam. Antonette Sebastian MD Number of Addenda: 0 Note Initiated On: 11/25/2017 7:16 AM MRN: ?[id number] Procedure Date: ? 11/25/2017 7:16:00 AM Estimated [...] Pre-procedure documented in this encounter Care Teams Bellman Driver Relationship Specialty Start Date End Date Loren Beyer MD PCP - General [facility] 11/15/[address] [address] documented as of this encounter
--- OUTSIDE RECORDS SUMMARY | 2022-02-23 06:16 | XMS_ITS | Encounter Summary ---
:1935 Author Organization [place] Address [facility] [place] [address] Care Team Providers Name Role Phone Arlin López Primary Care Provider Reason for Visit Reason Onset Date Comments Referral 02/02/2013 MTM Encounter Details Date Type Department Care Team Description 02/02/2013 Telephone [facility] Pharm D Hilton López Referral (MTM) Project [facility] [address] [facility] [address] [place], [place] [id number] [place] [address] [phone] (Wo rk) Social History Tobacco Use Types Packs/Day Years Used Date Smoking Tobacco: Never Alcohol Use Standard Drinks/Week Comments No 0 (1 standard drink = 0.6 oz pure alcoho l) Sex Assigned at Date Recorded Not on file documented as of this encounter Miscellaneous Notes Telephone Encounter - Maame Marie - 02/02/2013 2:00 PM CDT MTM referral from: Transitions of Care (recent hospital discharge or ED visit) MTM referral outreach attempt #1 on February 02, [...] on filedocumented in this encounter Care Teams Fire Tender Relationship Specialty Start Date End Date Arlin López PCP - General Internal Medicine 01/18/13 11/14/17 [facility] [address] [place] [address] documented as of this encounter
--- OUTSIDE RECORDS SUMMARY | 2022-02-23 06:16 | XMS_ITS | Encounter Summary ---
:1935 Author Organization [facility] Address [address] [place] [address]. [place] [address] Care Team Providers Name Role Phone Arlin López Primary Care Provider Reason for Referral Specialty Diagnoses / Procedures Referred By Contact Refer red To Contact [facility] [address] [place] [address] Referral ID Status Reason Start Date Expiration Date Visits Requ ested Visits Authorized Reason for Visit Auth/Cert - Closed Specialty Diagnoses / Procedures Referred By Contact Refer red To Contact Surgery Diagnoses Right shoulder degenerative joint disease Rh Periop Se rvices Procedures ARTHROPLASTY SHOULDER REVERSE ARTHROPLASTY SHOULDER> [address] [place], [place] [address] Phone: Fax: Referral ID Status Reason Start Date Expiration Date Visits Requ ested Visits Authorized [id number] Closed 1 1 Encounter Details Date Type Department Care Team Description 01/30/2013 - Hospital Encounter [facility] Evy Farr arthritis 02/02/2013 Arnie Jethro Wagner MD (Primary Dx) Surgical [facility] [address] [facility] [place], [place] [address] [address] [facility] [address] [place] [address] Social History Tobacco Use Types [...] Farr MD - 02/01/2013 10:44 AM CDT [facility] Discharge Summary Fawad Unger [id number] Age: [age] year old 1935 Date of [...] Discharge activity: Activity as tolerated Sling multimedia project manager except for showering and dressing or doing [...] Call received this morning from Mery at [facility] informing that they have no openings there. Pt and had identified [facility] as facility for consideration, assessment completed and they will be able to accept pt there. As arrangements were being finalized for pt's transfer, with providing transport, [facility] bariatric program coordinator called informing that they do have be available. Pt has requested that arrangements be made for her transfer to [facility], arrangements were adjusted and pt discharged to that facility for rehab stay with providing transport ( @ 1015) as noted. With discharge today, no furtehr SWS. Brittani Hinds LSW - 02/01/2013 3:18 PM CDT SWS D: Discharge planning continuing.. Discussed with who informs of plan for pt's transr tomorrowto rehab facility. [facility] has no openings, awaiting calls back from [facility] to determine if they have opening [...] other rehab facilities, they have indicated that [facility], or maybe [facility] as son lives in that area. [...] Baer MD - 02/01/2013 10:42 AM CDT [facility] Hospitalist Progress Note Assessment and Plan: Patient is a 77 year old female who is POD 1 s/p reverse total shoulder arthroplasty, right 1. Hypertension: BP on the high side. Continue on SHOE STAINER clonidine with parameters. Will continue to monitor blood pressure 2. GERD: Continue on SHOE STAINER omeprazole and famotidine 3. Asthma: has no wheezes. Will continue SHOE STAINER QVAR and Proair inhalers, she has brought them from home. 4. Postherpetic neuralgia: Continue on SHOE STAINER gabapentin 5. Hypothyroidism: Continue on SHOE STAINER levothyroxine 6. S/p reverse total shoulder arthroplasty: [...] date of discharge: 02/02/13 Evy Farr MD [phone] Adia Colorado MD - 01/31/2013 3:50 PM CDT [facility] Hospitalist Progress Note Assessment and Plan: Patient is a 77 year old female who is POD 0 s/p reverse total shoulder arthroplasty, right 1. Hypertension: Elevated. Continue on SHOE STAINER clonidine with parameters. Patient makes it clear that she wishes to have no other medications added to her regimen. 2. GERD: Continue on SHOE STAINER omeprazole and famotidine 3. Asthma: No wheezing currently, well controlled. Resume SHOE STAINER QVAR and Proair inhalers, she has brought them from home. 4. Postherpetic neuralgia: Continue on SHOE STAINER gabapentin 5. Hypothyroidism: Continue on SHOE STAINER levothyroxine 6. Low-grade temperature. No signs of [...] lives with her in their apartment in [place], prior to surgery she had been independent with ambulation and ADLs. I: Met with pt and , they affirm plan for pt's transfer to rehab facility and identify [facility], and [facility] as facility preferences.. they have spoken to [...] see Vital Sign flowsheet (02/22 with spasms; 810 at rest) Range of Motion (ROM) ROM [...] Transfer Skill: Sit to Stand Level of [place]: Sit/Stand moderate assist (50% patients effort) Physical Assist/Nonphysical Assist: Sit/Stand set-up required;supervision;verbal cues;nonverbal cues(demo/gestures);1 person assist Transfer Skill: Toilet Transfer Level of [place]: Toilet moderate assist (50% patients effort) Physical Assist/Nonphysical Assist: Toilet set-up required;supervision;verbal cues;nonverbal cues (demo/gestures);1 person assist Balance Balance Comments decreased balance upon standing and mobility in bed Upper Body Dressing Level of [place]: Dress Upper Body maximum assist (25% patients effort) Lower Body Dressing Level of [place]: Dress Lower Body maximum assist (25% patients effort) Toileting Level of [place]: Toilet moderate assist (50% patients effort) Grooming Level of [place]: Grooming moderate assist (50% patients effort) Eating/Self Feeding Level of [place]: Eating moderate assist (50% patients effort) (pt's [...] a pt request to see a hospital paving stone installer. Pt was lying in bed awake with her in the room. INTERVENTION: Pt reported being in a lot of pain from the surgery. Pt reported being involved with their mariaelena. Ptmentioned that their storekeeper engineering was with them yesterday during the surgery. Pt shared about their children and how they are a support network for them. Pt shared that her and her find hilda in volunteering at a school together. Pt asked for prayer, and we prayed in the room. Pt mentioned being nauseous from the pain. Panel Lay Up Worker offered supportive listening and encouragement to pt for their treatment and recovery. ASSESSMENT: Pt seemed to be well supported by her mariaelena community, and her PLAN: Continue to pray for the pt. Panel Lay Up Worker availability upon request Saul Tellez Panel Lay Up Worker Diplomatic Officer Pager [phone] Candy Lopez, PT - 01/31/2013 10:23 AM CDT 01/31/13 0900 Quick Adds Type of Visit Initial PT Evaluation Living Environment (R) Lives With spouse Living Arrangements apartment (senior housing) Living Environment Comment Lives in intermediate. Pt has supportive . Self-Care Dominant Hand [...] no complaints. Pain controlled. 1. Hypertension: Resume SHOE STAINER clonidine with parameters 2. GERD: Resume SHOE STAINER omeprazole and famotidine 3. Asthma: No wheezing currently, well controlled. Resume SHOE STAINER QVAR and Proair inhalers, she has brought them from home. 4. Postherpetic neuralgia: Resume SHOE STAINER gabapentin 5. Hypothyroidism: Resume SHOE STAINER levothyroxine 6. S/p reverse total shoulder arthroplasty: [...] Miscellaneous Notes Pharmacy-Medication Teaching - Deborah Van [facility] - 02/02/2013 1:35 PM CDT Fawadberta Unger 1935 female [id number] Allergy: Food; Penicillins; Sulfa drugs; Animal dander; Aspirin; Atorvastatin; Claritin; Fosamax; Oxycodone; Perfume; Pollen extract; Smoke.; Wool fiber; and Petroleum jelly RX: Discharge Medication Consult by Pharmacist EDUCATION: Discharge Medication List [place] Home Medication Instructions DAYANA:[id number] Printed on:02/02/13 1335 Medication Information OMEPRAZOLE PO [...] with medication reconciliation of discharge medications with SHOE STAINER medications. MDwas contacted with any questions/concerns - no concerns. Patient was not counseled or given any education materials as discharged to a TCU facility. Plan of Care - Phuong Leon PTA - 02/02/2013 11:44 AM CDT Problem: General Rehab Plan of Care Goal: Physical Therapy Goals The patient and/or their account service representative will achieve their patient-specific goals [...] Physical Therapy Goals The patient and/or their account service representative will achieve their patient-specific goals [...] Occupational Therapy Goals The patient and/or their account service representative will achieve their patient-specific goals [...] santo with changes. Going to TCU in [place]. Plan of Care - Heather Harp RN - 02/02/2013 7:34 AM CDT Problem: IP GENERAL POC-ADULT,OB,BEHAVIORAL FVCPM Goal: Individualization/Patient-Specific Goal (Adult,OB,Behavioral The patient and/or their account service representative will achieve their patient-specific goals [...] Individualization/Patient-Specific Goal (Adult,OB,Behavioral The patient and/or their account service representative will achieve their patient-specific goals related to the plan of care. The patient-specific goals include: CTS Discharge planning for transfer to rehab facility. Outcome: Improving [facility] Orthopedic Nursing Progress Note Assessment Assessment: BP [...] Physical Therapy Goals The patient and/or their account service representative will achieve their patient-specific goals [...] to stand with CGA. Ambulated 60' with JALOUSIE INSTALLER on L. Slow steps with frequent stops pt appears a little confused at times. Seated R UE Rom toelbow and wrist with increased pain. Recommend discharge to TCU if able, otherwise JALOUSIE INSTALLER and Home PT Plan of Care - [...] Occupational Therapy Goals The patient and/or their account service representative will achieve their patient-specific goals [...] Physical Therapy Goals The patient and/or their account service representative will achieve their patient-specific goals [...] Min A. Ambulated 6' to commode with JALOUSIE INSTALLER. Commode transfer with CGA with independent with cares Min A for dressing. Ambulated 45' with CGA and JALOUSIE INSTALLER on LUE. Pt shaky and nauseated throughout walk. RUE wrist and elbow ROM with AAROM x10. Recommend discharge to TCU secondary to increased pain, nausea for increased independece. If unable to go to TCU secondary to not having a qualifying stay would recommend JALOUSIE INSTALLER and home therapies Plan of Care - Katey Valderrama RN - 02/01/2013 2:12 AM CDT Problem: IP GENERAL POC-ADULT,OB,BEHAVIORAL FVCPM Goal: Individualization/Patient-Specific Goal (Adult,OB,Behavioral The patient and/or their account service representative will achieve their patient-specific goals [...] Care Review (Adult,OB,Behavioral) The patient and/or their account service representative will communicate an understanding of [...] down, casas pulled at the end of car shifter and pt has been up to BR [...] Occupational Therapy Goals The patient and/or their account service representative will achieve their patient-specific goals [...] initiated; pt lives with supportive in independent intermediate, previously I with ADLs; pt currently limited [...] Physical Therapy Goals The patient and/or their account service representative will achieve their patient-specific goals [...] Individualization/Patient-Specific Goal (Adult,OB,Behavioral The patient and/or their account service representative will achieve their patient-specific goals [...] Care Review (Adult,OB,Behavioral) The patient and/or their account service representative will communicate an understanding of [...] counts were correct. EVY FARR MD MT: #[id number] Name: FAWAD UNGER Account: [id number] : 1935 Procedure Date: 01/30/2013 Document: [id number] Brief Op Note - Evy Farr MD - 01/30/2013 10:33 AM CDT [facility] Orthopedic Brief Operative Note Pre-operative diagnosis: Right shoulder degenerative joint disease Post-operative diagnosis: Same Procedure: Procedure(s): REVERSE ARTHROPLASTY SHOULDER Surgeon: Evy Farr MD Spinning Frame Cleaner(s): none Anesthesia: Combined General with Interscalene Block [...] Signature Platelet Count 178 150 - 450 [place] 10e9/L [facility] Specimen Anatomical Collection Method Collection Time Receive d Time (Source) Location / / Volume Laterality Blood specimen 02/02/2013 6:05 AM 013 6:23 (specimen) CDT AM CDT Evy Farr MD LAB - BLOOD ORDERABLES Performing Organization Address City/State/ZIP Code Phon e Number M [facility] [address] [place], [place] [address] [facility] LAB (ABNORMAL) CBC with platelets differential (02/01/2013 6:25 AM CDT) [facility] gist Method Time Signature WBC 12.4 (H) 4.0 - [place] 11.0 [facility] 10e9/L [facility] RBC Count 4.28 3.8 - 5.2 [place] 10e12/L [facility] Hemoglobin 11.0 (L) 11.7 - [place] 15.7 g/dL [facility] Hematocrit 34.3 (L) 35.0 - [place] 47.0 % [facility] MCV 80 78 - 100 [place] fl [facility] MCH 25.7 (L) 26.5 - [place] 33.0 pg [facility] MCHC 32.1 31.5 - [place] 36.5 g/dL [facility] RDW 16.2 (H) 10.0 - [place] 15.0 % [facility] Platelet Count 216 150 - 450 [place] 10e9/[facility] Diff Method Automated [facility] LAB % Neutrophils 74.8 % [facility] % Lymphocytes 11.3 % [facility] % Monocytes 11.9 % [facility] % Eosinophils 1.3 % [facility] LAB % Basophils 0.3 % [facility] LAB % Immature 0.4 % [place] Granulocytes [facility] Absolute 9.2 (H) 1.6 - 8.3 [place] Neutrophil 10e9/L [facility] Absolute 1.4 0.8 - 5.3 [place] Lymphocytes 10e9/L [facility] Absolute 1.5 (H) 0.0 - 1.3 [place] Monocytes 10e9/L [facility] Absolute 0.2 0.0 - 0.7 [place] Eosinophils 10e9/L [facility] Absolute 0.0 0.0 - 0.2 [place] Basophils 10e9/L [facility] Abs Immature 0.1 0 - 0.4 [place] Granulocytes 10e9/L [facility] Specimen Anatomical Collection Method Collection Time Receive d Time (Source) Location / / Volume Laterality Blood specimen 02/01/2013 6:25 AM 013 6:56 (specimen) CDT AM CDT Adia Colorado MD LAB - BLOOD ORDERABLES Performing Organization Address City/[facility]/ZIP [facility] Phon e Number [facility] [address] [place], [place] [address] [facility] LAB (ABNORMAL) Glucose (02/01/2013 6:25 AM CDT) P athologist Signature Glucose 108 (H) 60 - 99 [place] mg/dL [facility] Specimen Anatomical Collection Method Collection Time Receive d Time (Source) Location / / Volume Laterality Blood specimen 02/01/2013 6:25 AM 013 6:56 (specimen) CDT AM CDT Evy Farr MD LAB - BLOOD ORDERABLES Performing Organization Address City/[facility]/ZIP [facility] Phon e Number [place] [address] [place], [place] [address] [facility] LAB (ABNORMAL) Hemoglobin (01/31/2013 5:53 AM CDT) P athologist Signature Hemoglobin 10.5 (L) 11.7 - 15.7 [place] g/[facility] LAB Specimen Anatomical Collection Method Collection Time Receive d Time (Source) Location / / Volume Laterality Blood specimen 01/31/2013 5:53 AM 013 6:10 (specimen) CDT AM CDT Evy Farr MD LAB - BLOOD ORDERABLES Performing Organization Address City/[facility] Phon e Number [facility] [address] [place], [place] [address] [facility] LAB (ABNORMAL) Glucose (01/31/2013 5:53 AM CDT) P athologist Signature Glucose 112 (H) 60 - 99 [place] mg/dL [facility] Specimen Anatomical Collection Method Collection Time Receive d Time (Source) Location / / Volume Laterality Blood specimen 01/31/2013 5:53 AM 013 6:10 (specimen) CDT AM CDT Evy Farr MD LAB - BLOOD ORDERABLES Performing Organization Address City/[facility]/ZIP Code Phon e Number [place] [address] [place], [place] [address] [facility] LAB Hospitalist IP Consult (01/30/2013 3:31 PM CDT) Evy Farr MD IP CONSULT ORDERABLES Creatinine (01/30/2013 1:00 PM CDT) athologist Signature Creatinine 0.64 0.52 - [facility] 1.04 mg/dL [facility] GFR Estimate >90 >60 [place] mL/min/[address] [place] [address] LAB GFR Estimate If >90 >60 [facility] mL/min/[address] LAB Specimen Anatomical Collection Method Collection Time Receive d Time (Source) Location / / Volume Laterality Blood specimen 01/30/2013 1:00 PM 013 1:05 (specimen) CDT PM CDT Evy Farr MD LAB - BLOOD ORDERABLES Performing Organization Address City/[facility]/ZIP Code Phon e Number [address] [facility] LAB Platelet count (01/30/2013 1:00 PM CDT) athologist Signature Platelet Count 212 150 - 450 [place] 10e9/L [facility] Specimen Anatomical Collection Method Collection Time Receive d Time (Source) Location / / Volume Laterality Blood specimen 01/30/2013 1:00 PM 013 1:05 (specimen) CDT PM CDT Evy Farr MD LAB - BLOOD ORDERABLES Performing Organization Address City/[facility]/ZIP [facility] Phon e Number [place]a [place] [address] [place], [place] [address] [facility] LAB documented in this encounter Visit Diagnoses Diagnosis Shoulder arthritis - Primary Unspecified arthropathy, shoulder region Shoulder arthritis Unspecified arthropathy, shoulder region documented in this [...] 50% of baseline or <100,000/??L and notify ., Post-procedure Given 02/01/2013 5:14 AM CDT 40 [...] on Tue01/30/13 at 1212, Hold while on ONCOLOGY SOCIAL WORK., Post-procedure Given 01/31/2013 5:00 AM CDT 0.2 mg Given 01/31/2013 2:32 AM CDT 0.2 mg Left Arm HYDROmorphone (DILAUDID) tablet 1-2 mg Given 01/31/2013 12:11 PM CDT 1 mg 1-2 mg, Oral, EVERY 3 HOURS PRN, moderate to severe pain, Starting on Tue01/30/13 at 1212, Hold while on ONCOLOGY SOCIAL WORK or with regular IV opioid dosing., Post-procedure [...] Altagracia Person RN)2023 (Given - Provider: Abraham Marshall, RT) 0819 (Given - Provider: Iliana zelaya, RT)2014 [...] 50% of baseline or <100,000/??L and notify ., Post-procedure famotidine (PEPCID) tablet 20 mg (CANCELED) [...] Delvalle, HEENA) 183 (Given - Provider: Eula Chong, HEENA) 50 [...] Valderrama RN)0232 (Given - Provider: Katey Valderrama, HEENA)0500 (Given - Provider: Katey Valderrama, HEENA)0741 (Given - Provider: Altagracia Person RN) 0.2 mg, Intravenous, EVERY 2 HOURS PRN, Starting Tue01/30/13 at 1212, Until Tue02/02/13 at 1239, severe pain, or if patient unable to take PO, Post-procedure, Hold while on ONCOLOGY SOCIAL WORK. HYDROmorphone (DILAUDID) tablet 1-2 mg (CANCELED) 0839 (Given - Provider: Altagracia Person RN)1211 (Given - Provider: Altagracia Person, HEENA) 1-2 mg, Oral, EVERY 3 HOURS PRN, moderat e to severe pain, Starting Tue01/30/13 at 1212, Hold while on ONCOLOGY SOCIAL WORK or with regular IV opioid dosing., Post-procedure [...] pain documented in this encounter Care Teams Instrument Maintenance Supervisor Relationship Specialty Start Date End Date Arlin López PCP - General Internal Medicine 01/18/13 11/14/17 [facility] [address] [place] [address] documented as of this encounter
--- OUTSIDE RECORDS SUMMARY | 2022-02-23 06:16 | XMS_ITS | Clinical Summary ---
:1935 Author Organization [facility] [place] [address] Care Team Providers Name Role Phone Loren Beyer MD Primary Care Provider [phone] Allergies Active Allergy Reactions Severity Noted [...] Atorvastatin Lisinopril 01/05/2008 Periorbital warren h Calcitonin ([place]) Nsaids (Non-Steroidal Aspirin Contraindication 018 Anti-Inflammatory (for [...] ss Type Group MEDICA MR MEDICA PRIME [id number] 2016-Present [address] [address] [employer] [address] [place] [facility] [address] [address] (Home) [address] [place] [address] Care Teams Commissioning Specialist Relationship Specialty Start Date End Date Lroen Beyer MD PCP - General Family Practice 10/20/161999 [facility] [place], [place] [id number]
--- OUTSIDE RECORDS SUMMARY | 2022-02-23 06:16 | XMS_ITS | Continuity of Care Document ---
:1935 Author Organization [facility] Address [address] [address] [place] [address] Phone Care Team Providers Name Role Phone [...] the type is not supported. Please contact [facility] for further details. Medications Medication [...] day Procedures Procedure Date Offic/outpt E&m Estab [facility] Ugi Endo; W/insrt Guide Wire Ugi Endo; W/bx 1/mx Offic/outpt E&m [facility] 2 Offic/outpt E&m [facility] 2 Offic/outpt E&m [facility] 2 Offic/outpt E&m [facility] 2 Offic/outpt E&m [facility]ab [facility] Offic/outpt E&m [facility]ab [facility] Offic/outpt E&m Estab [facility] Offic/outpt E&m [facility] Advance Directives Directive Yes / No Effective Date File Name No Information Encounters Encounter Practice Location Reason(s) Diagnoses Date Provider Provide rs Description For Visit Copied on Encounter [facility] No Information Link Digestive [facility] 0-201 [facility], Endoscopy 8 9438 [facility] [address], [address] [facility] [place], [place], [place], [address], [id number], [place], [place], tel:+ [phone] , [place]. tel:+ [phone] Offic/outpt [place] [facility] Gastroesophageal Edelmira FALK Referring E&m Estab Digestive Symptoms reflux disease Trudy Driver ovider: [facility], or without [address] Concerns esophagitisGastro [facility] hanna [address], (chief paresisEssential Street , 200 0 [place] complaint) (primary) NE, [address], [place], [place], hypertension 500, [place] [id number], [place] , [place], [place], [address]. tel:+ [phone] tel:[phone] , [place]. [id number] tel: [phone] [facility] No Information Mikie FALK Referr ing Digestive [facility]. Provider: Health PA, [facility] 8 [address] [facility] [address], Riaz FALK, [address] [place], [address], [place], [place], [address], [place] [id number], [place] , [place], [place], [address]. tel:+ [phone] tel:[phone] , [place]. [id number] tel: [phone] Offic/outpt [facility] Dysphagia, Edelmira FALK Re ferring E&m Estab Digestive Symptoms unspecified Trudy Provi boo: [facility] 2 [facility] PA, or typeGastroesophag [address] Re ferral [address] Concerns eal reflux [place] Self. [address], (chief disease, [facility] esophagitis NE, [place], [place], presence not 500, [id number], specifiedFull [place] incontinence of [place], [place], tel: feces [phone] , [place]. tel: [phone] Offic/outpt [place] [facility] GI Gastroesophageal Edelmira FALK Referring E&m Estab Digestive Symptoms reflux disease, Trudy fallder: [facility] PA, or esophagitis 8 . [address] Concerns presence not [facility] [address], (chief [facility] Riaz FALK, 20 [facility] complaint) a, unspecified NE, [address], [place], [place], typeEssential 500, [place] [phone], (primary) [place] , [place], [place], [address]. tel: [phone] tel:[phone] , [place]. [id number] tel: [phone] Offic/outpt [facility] GI GastroparesisChro Jul- Louise martinez Referring E&m Estab Digestive Symptoms raul 0-201 Provider: [facility] PA, or constipationHeart 6 Jany R eferral PO Box Concerns burnEssential E. [address] Self. [address], (chief (primary) [facility] complaint) hypertension Street s, [place], [place], [place] [id number], 500, [place] tel: is, [place], [phone] , [place]. tel: [phone] Offic/outpt [facility] GI Irritable Colon Jaylen FALK Referring E&m Estab Dig[facility]ive Clinic Symptoms 7-201 Corey. Provider: [facility] PA, or 5 [address] Referral [address] Concerns [place]. [address], (chief [facility] complaint) NE, [place], [place], [address], [id number], [place], [place], tel: [phone] , [place]. tel: [phone] Offic/outpt [facility] GI GastroparesisDiet Marianna geller Referring E&m Estab [facility] Symptoms wilner 0-201 Provider: [facility], or Surveil/counselEl 4 Yon. Re ferral PO Box Concerns ev Bl Pres W/o [address] Self. [address], (chief Hypertn [facility] complaint) Street s, [place], Additional [place], [place] [id number], Narrative 500, [place] (chief [facility] tel:+ complaint) is, [place], [phone] , [place]. tel: [phone] Offic/outpt [facility] Pain Mar-2 Clement matos E&m [facility] Generalized 1-201 Provider : [facility] GHAZAL, Kinjal Marvin. Arlin [address] Maribel FALK [address], [place], 1999 [facility], [place], [place], [facility] [address] [id number], [facility], [facility] [employer] Practice tel: [place], [place], Int Med, [phone] [id number] [facility]. , [place], tel:[phone] tel:[phone] Offic/outpt [facility] [place] Dyspepsia/acid Mar-0 Ethan INSURANCE SALES EXECUTIVE Ref erring E&m [facility]ive Clinic Peptic 6-201 Ashley. Provider: [facility] GHAZAL, DiseaseConstipati 4 3001 Juana chapman [address] on Unspecified [facility] [address], [place] E, 1999 [place], [place], [address] [place] [address], [facility], [place], Practice tel: [phone] Int Med, [id number] , [facility] tel: , [place], [phone]. tel:[phone] Offic/outpt [facility] Dyspepsia/acid Mar-0 Clement delcid E&m [facility] Digestive Clinic Peptic Disease 3-201 Provide r: [facility] KARALIT GHAZAL, Kinjal Marvin. Arlin [address] Maribel FALK [address], [place], 1999 [facility], [place], [place], [place] [id number], [address] [place] [address] Practice tel: [place], [place], Int Med, [phone] [facility] , [place], tel: [phone] tel:[phone] Family History Family Member Type Diagnosis Age [...] free, 3 years or older Fluarix Quad 1591-7377 Flu (split) (3 yrs or older) administered Not e: Invalid documented admin date was . ; Source: Other Pr ovider Pneumo (2 yrs or older)(PPV) administered Not e: Invalid documented admin date was . ; Source: Other Provider Payers Payer name Insurance type Covered libertarian ID Authorization(s ) [employer] Choice Sr 16 [id number] Social History Type Description Quantity Date Captured [...] underlyin g history of gastroparesis made in [place] many years ago, with an associated chronic [...] history of gastroparesis that was diagnosed in [place] a number of years ago. However, she [...] endoscopy Rel ated to Dysphagia, unspecified at [facility] to type include possible dilation and esophageal [...] point because I do not feel would jacket changer. We discussed that this could certainly [...] follow up with her primary physician Dr. López in [place]. 1.) I would a agree with Reglan [...]
--- OUTSIDE RECORDS SUMMARY | 2022-02-23 06:16 | XMS_ITS | Encounter Summary ---
:1935 Author Organization [place] Address [address] [place] [address] Care Team Providers Name Role Phone Loren Beyer MD Primary Care Provider [phone] Reason for Visit Auth/Cert Specialty Diagnoses / Procedures Referred By Contact Refer red To Contact Gastroenterology Diagnoses DYSPHAGIA Sh Endoscopy Procedures COMBINED ESOPHAGOSCOPY, GASTROSCOPY, DUODENOSCOPY (EGD), DILATATION [address] [phone] Phone: Referral ID Status Reason Start Date Expiration Date Visits Requ ested Visits Authorized [id number] 1 1 Encounter Details Date Type Department Care Team Description 11/25/2017 Anesthesia Event [facility] Phuong Arias ANESTHESIOLOGY [address] [id number] [facility] Samantha Baird, MOPHEAD SEWER SENIOR INTEGRATION DEVELOPER [address] [phone] [phone] Anesthesia Record Procedure Summary Procedure Name Responsible Anesthesia Start Anesthesia Stop Anesthesiologist Time Time ESOPHAGOGASTRODUODENOSCOPY WITH Phuong Arias 11/25/17 0807 11/25/17 0845 DILATION (MAC) (Esophagus) Events Date Time Event Comment 11/25/2017 0807 [...] 01/30/13; 1007; Right; 01/30/13 1007 by Shoulder TulGildardo RN Peripheral IV 11/25/17; 0721; 20 G; [...] (Last set prior to Anesthesia Care Transfer) SENIOR INTEGRATION DEVELOPER VITALS 11/25/2017 0809 - 11/25/2017 0845 11/25/2017 [...] 0845 documented in this encounter Care Teams Supervisor Audit Clerks Relationship Specialty Start Date End Date Loren Beyer MD PCP - General Family Practice 11/15/17 [place] [address] documented as of this encounter
--- OUTSIDE RECORDS SUMMARY | 2022-02-23 06:16 | XMS_ITS | Encounter Summary ---
:1935 Author Organization [place] Address [facility] [place] [address] Care Team Providers Name Role Phone Arlin López Primary Care Provider Encounter Details Date Type Department Care Team Description 07/18/2016 Telephone [facility] Nurse Jana Heath, RN Advisors [address] [employer] [place] [address] Social History Tobacco Use Types Packs/Day [...] it is due to pain. Requested contacting motion picture director provider Dr. Doran for advice; contacted by [facility] and advises ED evaluation for BP [...] Instructions: Care Advice: Another adult should drive. S REPRESENTATIVE METALS documented in this encounter Plan of Treatment Not on filedocumented as of this encounter Visit Diagnoses Not on filedocumented in this encounter Care Teams Journalist Relationship Specialty Start Date End Date Arlin López PCP - General Internal Medicine 01/18/13 11/14/17 [facility] [address] [place] [address] documented as of this encounter
--- OUTSIDE RECORDS SUMMARY | 2022-02-23 06:16 | XMS_ITS | Encounter Summary ---
:1935 Author Organization [place] Address [address] [facility] [place] [address] Care Team Providers Name Role Phone Arlin López Primary Care Provider Reason for Visit Auth/Cert - Closed Specialty Diagnoses / Procedures Referred By Contact Refer red To Contact Surgery Diagnoses Right shoulder degenerative joint disease Rh Periop Se rvices Procedures ARTHROPLASTY SHOULDER REVERSE ARTHROPLASTY SHOULDER> [address] [place], [place] [address] Phone: Fax: Referral ID Status Reason Start Date Expiration Date Visits Requ ested Visits Authorized [id number] Closed 1 1 Encounter Details Date Type Department Care Team Description 01/30/2013 Anesthesia Event [facility] Anirudh Vargas PeriOp Services MD Jeovany [address] [place] [address] ANESTHESIA [phone] [place] [place], [place] [address] (Wo rk) Anesthesia Record Procedure Summary Procedure Name Responsible Anesthesia Start Anesthesia Stop Anesthesiologist Time Time Right Reverse Total Leon Vargas MD 01/30/13 0738 1034 Shoulder Arthroplasty (Right: Shoulder) Events Date Time Event Comment 01/30/2013 0655 Non-OR Block Start Leon molina 0705 Non-OR Block Stop Leon landaverde 0718 0738 Huyen Wall 0738 Present 0738 Quick Note To OR, monitors on, VSS, patient positioned to comfort, pre-O2, smooth IV induction, eyes taped, ATI x 1, all PPP . 0741 An Start Data 0741 Present 0744 An Induction 0744 Present 0746 Present 0749 AN START SEVO 0749 An Intubation 0749 Present 0818 Present 09 Present 09 Present 09 Present 1018 Present 102 AN END SEVO 1026 an stop data 103 Present 1034 An Stop Electronically s igned [...] 1007 by Shoulder TulGildardo RN Peripheral IV 01/30/13; 0643; 20 G; 01/30/13 0643 by 02/01/13 0700 by Left; Lower forearm; Leon Vargas Ma rgaret Alcohol; Injectable; MD Jeovany M, RN Tolerated well RETIRED ETT 01/30/13; 0749; Airway 01/30/13 0749 by 01/30/13 1031 by Size: 7; Cuffed; Oral Steve Rubin, endotracheal tube; Blade JORDON Hughes PAPERBACK MACHINE OPERATOR Steve brooks APRN Type: Concepcion; Blade PAPERBACK MACHINE OPERATOR Size: 2; Place by: ps; Insertion Attempts: 1; Breath Sounds: Equal, clear and bilateral; End Tidal CO2: Present; Dentition: Intact; Grade View of Cords: 2 Urethral Catheter 01/30/13; 0800; No; 16 01/30/13 0800 by 0700 by Brigid Agrawal Debra M, RN A, RN documented in this encounter [...] benefits and alternatives discussed with: patient or tax compliance representative. Possibility of blood products discussed. History [...] by Tanja Referred by MEAGHAN Location: pre-op. ?? PreAnesthestic Checklist: patient identi [...] gloves Nerve Stim: Initial Level 0.7 mA. [place] Line t motor response mA. Needle: insulated, short [...] gloves Nerve Stim: Initial Level 0.7 mA. [place] t motor response mA. Needle: insulated, short [...] subdural or intrathecal injection. Leon Vargas MD [place] ANESTHESIA documented in this encounter Visit Diagnoses [...] Pre-procedure documented in this encounter Care Teams Rod Finisher Relationship Specialty Start Date End Date Arlin López PCP - General Internal Medicine 01/18/13 11/14/17 [facility] [address] [place] [address] documented as of this encounter
--- OUTSIDE RECORDS SUMMARY | 2022-02-23 06:16 | XMS_ITS | Encounter Summary ---
:1935 Author Organization [place] Address [address] [facility] [address] Care Team Providers Name Role Phone Loren Beyer MD Primary Care Provider [phone] Reason for Visit Auth/Cert Specialty Diagnoses / Procedures Referred By Contact Refer red To Contact Gastroenterology Diagnoses DYSPHAGIA Sh Endoscopy Procedures COMBINED ESOPHAGOSCOPY, GASTROSCOPY, DUODENOSCOPY (EGD), DILATATION [address] [phone] Phone: Referral ID Status Reason Start Date Expiration Date Visits Requ ested Visits Authorized [id number] 1 1 Encounter Details Date Type Department Care Team Description 11/25/2017 Hospital Encounter [facility] Antonette Sebastiansaint cloud Endoscopy MD Rosenda [address] GASTROENTEROLOGY [place] [address] [facility] [phone] [id number] (Wo rk) Social History Tobacco Use Types [...] Component Value Ref Test [facility] Method Time Signature Copath Report Patient Name: FAWAD CELESTE MR#: [id number] Specimen #: [id number] Collected: 11/25/2017 Received: 11/25/2017 Reported: 11/28/2017 10:45 [...] substantiates the final diagnosis. CPT Codes: A: 86428-QC5 B: 24191-PD1 C: 90083-PD7 D: 50871-ZP6 TESTING LAB LOCATION: [address] ??[address] COLLECTION SITE: Client: [facility] Location: [place] (S) Specimen (Source) Anatomical Collection [...] / biopsy (specimen) Unknown Antonette Sebastian MD [facility] Performing Organization Address City/State/ZIP Code Phon e Number [facility]PPER GI ENDOSCOPY (11/25/2017 7:16 AM CDT) Component Value Ref Test Analysis Performed At [facility] gist Range Method Time Signature Upper [facility] RADIOLOGY Endoscopy [facility] Endoscopy Department RESULTS Patient Name: Fawad Celeste ? Procedure Date: 11/13 7:16 AM ? Accou nt Number: [id number] Date of : 1935 ?Admit Type: Out [...] ? Dilation was performe d with a Solid Information Technologyary dilator with no resistance at 51 Fr. [...] Procedure Code(s): ? --- Professional --- ? 09738, Esophagogastroduodenoscopy, flexib le, transoral; with insertion ? of guide wire followed by passage of dila tor(s) through esophagus over ? guide wire ? 91386, 59, Esophagoga stroduodenoscopy, flexible, transoral; with biopsy, ? single or multiple CPT copyright 2017 [employer]. All rights reserved. The codes documented in this report are prelimin wilner and upon certified professional coder review may be revised to meet current compliance requirements. Signed electronically by Antonette Mccoy MD Antonette Sebastian MD 11/25/2017 8:46:16 AM I was physically present for the entire viewing portion of t he exam. Antonette Sebastian MD Number of Addenda: 0 Note Initiated On: 11/25/2017 7:16 AM MRN: ?[id number] Procedure Date: ? 11/25/2017 7:16:00 AM Estimated [...] Pre-procedure documented in this encounter Care Teams Software Publisher Relationship Specialty Start Date End Date Loren Beyer MD PCP - General Family Practice 11/15/[address] [address] documented as of this encounter
--- OUTSIDE RECORDS SUMMARY | 2022-02-23 06:16 | XMS_ITS | Encounter Summary ---
:1935 Author Organization [place] Address [address] [place] [address]. [place] [address] Care Team Providers Name Role Phone Arlin López Primary Care Provider Reason for Visit (Routine) - Closed Specialty Diagnoses / Procedures Referred By Contact Refer red To Contact Radiology / Radiology. Diagnoses R#N/A, Medica, Medicare, sb: Non Epic. Pt to arrive at 9:00 to start prep, draw creatinine. Rh Ct Scan Procedures CT ABDOMEN PELVIS W [address] [place] [address] Phone: Fax: Referral ID Status Reason Start Date Expiration Date Visits Requ ested Visits Authorized [id number] Closed 07/19/2013 07/19/2014 1 1 Encounter Details Date Type Department Care Team Description 07/20/2013 [facility] Ashley Long, Dyspepsia (Primary Dx); Encounter [facility] RADIOISOTOPE PRODUCTION OPERATOR MANAGER CASE MANAGEMENT Constipation [address]ARY GASTROENTEROL OGY PA [address] [place], [place] [address] [phone] Social History Tobacco Use Types Packs/Day Years [...] AM Dyspepsi a Results for this CONTRAST GRINDER SETUP OPERATOR Constipation procedure are i n the results section. ISTAT CREATININE Routine 07/20/2013 10:18 AM Resu lts for this POCT GRINDER SETUP OPERATOR procedure are i n the results section. documented in this encounter Results CT Abdomen Pelvis w Contrast (07/20/2013 11:33 AM GRINDER SETUP OPERATOR) Anatomical Region Laterality Modality Abdomen/Pelvis, SUBRAD CT BODY, UMP CT ABDOMEN PELVIS Computed Tomography Specimen (Source) Anatomical Location Collection Method / Collectio n Time Received Time / Laterality Volume Impressions 07/20/2013 12:07 PM GRINDER SETUP OPERATOR Impression: 1. Gallstone. 2. Colonic diverticulosis. No definite e vidence for acute diverticulitis. DEMETRIUS HEARN MD Narrative 07/20/2013 12:07 PM GRINDER SETUP OPERATOR CT ABDOMEN PELVIS W CONTRAST ??07/20/2013 11:33 [...] definite evidence for acute diverticulitis. The b primitivo otherwise appears grossly unremarkable. There are small calcified uterine fibroids. The mesenteric arteries are patent without s ignificant stenoses at their origins. IMPRESSION Impression: 1. Gallstone. 2. Colonic diverticulosis. No definite e vidence for acute diverticulitis. DEMETRIUS HEARN MD Ashley Long APRN MANAGER CASE MANAGEMENT IMG CT ORDERABLES Creatinine POCT (07/20/2013 10:18 AM GRINDER SETUP OPERATOR) P athologist Signature Creatinine 0.8 0.52 - POINT OF CARE 1.04 mg/dL TEST, HANDHELD METER GFR Estimate 70 >60 POINT OF CARE mL/min/1.7 TEST, HANDHELD m2 METER GFR Estimate If 84 >60 POINT OF CARE Black mL/min/1.7 TEST, HANDHELD m2 METER Specimen Anatomical Collection Method Collection Time Receive d Time (Source) Location / / Volume Laterality 07/20/2013 10:18 07/20/2013 AM GRINDER SETUP OPERATOR 10:25 AM GRINDER SETUP OPERATOR Ashley Long APRN MANAGER CASE MANAGEMENT LAB - BEAKER POCT Performing Organization Address [...] iopamidol (ISOVUE-370) 76% Given 07/20/2013 11:29 AM GRINDER SETUP OPERATOR 58 mLs solution 500 mL 500 mL, Intravenous, ONCE, On Tue07/20/13 at 1130, For 1 dose sodium chloride 0.9 % BOLUS 1,000 mL New Bag 07/20/2013 11:28 AM GRINDER SETUP OPERATOR 55 mLs Intravenous, 1,000 mL, ONCE, On Tue07/20/13 at 1130, For 1 dose documented in this encounter Care Teams Global Expansion Sales Director Relationship Specialty Start Date End Date Arlin López PCP - General Internal Medicine 01/18/13 11/14/[address] [address] (work) documented as of this encounter
--- OUTSIDE RECORDS SUMMARY | 2022-02-23 06:16 | XMS_ITS | Clinical Summary ---
:1935 Author Organization [place] Address [address] [place] [address]. [place] [address] Care Team Providers Name Role Phone Loren Beyer MD Primary Care Provider [phone] Allergies Active Allergy Reactions Severity Noted [...] on file Medical Devices Implanted Type Area Criminal Court Judge Device Shelf Model / Identifier Expiration Date Ser ial / Lot Humeral Bearing Standard 44-36mm Right: 10/12/2017 [id number] / Implanted: Qty: 1 on 01/30/2013 by Jc Farr MD at [facility] / [id number] Insurance Payer Benefit Plan / Subscriber ID Effective Phone Address T ype Group Dates MEDICA MEDICA PRIME [id number] 2010-Prese [phone] [address] Indemnity [address]UTION [address] [place] [address] MEDICARE MEDICARE FOR HB [id number] 2008-Prese [phone] ATTN CLAIMS Medicare SUPPLEMENT nt 40 [address] [place] [address] Advance Directives For more information, please contact: [phone] Latest Code Status on File Code Status Date Activated Date Inactivated Comments DNR/DNI 01/30/2013 12:12 PM 02/02/2013 12:40 PM Care Teams Tailor Helper Relationship Specialty Start Date End Date Loren Beyer MD PCP - General Family Practice 11/15/[address] [address]
--- OUTSIDE RECORDS SUMMARY | 2022-02-23 06:17 | XMS_ITS | Encounter Summary ---
:1935 Author Organization [place] Address [address] [place] [address]. [place] [address] Care Team Providers Name Role Phone Unavailable Primary Care Provider Unavailable Encounter Details Date Type Department Care Team Description 08/25/2012 Results Only Ear, Nose and Throat Cynthia Sanchez MD Clinic [address] [facility] [address] Floor, Clinic [address] [place] [address] Toni Mcgrath Building [address] [facility] [address] [facility] [address] [place], [place] [phone] Social History Tobacco Use Types Packs/Day Years Used Date Smoking Tobacco: Never Assessed Sex Assigned at Date Recorded Not on file documented as of this encounter Plan of Treatment Scheduled Orders Name Type Priority Associated Diagnoses Order S chedule MR Digital Archive Imaging Ordered: 08/25/2012 Non-Ramírez documented as of this encounter Visit Diagnoses Not on filedocumented in this encounter
--- OUTSIDE RECORDS SUMMARY | 2022-02-23 06:17 | XMS_ITS | Encounter Summary ---
:1935 Author Organization [place] Address [address] [place] [address]. [place] [address] Care Team Providers Name Role Phone Unavailable Primary Care Provider Unavailable Encounter Details Date Type Department Care Team Description 01/09/2010 Office Visit-[facility] INTERFACE [facility] DEPT Provider, [facility] Nurs e Social History Tobacco Use Types Packs/Day Years Used Date Smoking Tobacco: Never Assessed Sex Assigned at Date Recorded Not on file documented as of this encounter Progress Notes Provider, [facility] Nurse - 01/09/2010 10:30 AM CDT Air Hose Coupler: Bekah Leigh Status: Final - Signature Encounter: [...] by:Bekah Leigh R.N. Jan 09 2010 10:40AM WINDOW CLEANER Review documented in this encounter Plan of Treatment Not on filedocumented as of this encounter Visit Diagnoses Not on filedocumented in this encounter
--- OUTSIDE RECORDS SUMMARY | 2022-02-23 06:17 | XMS_ITS | Encounter Summary ---
:1935 Author Organization [facility] Address [address] [place] [address]. [place] [address] Care Team Providers Name Role Phone Unavailable Primary Care Provider Unavailable Encounter Details Date Type Department Care Team Description 12/15/2009 Office Visit-[facility] INTERFACE [facility] DEPT Provider, [facility] Nurs e Social History Tobacco Use Types Packs/Day Years Used Date Smoking Tobacco: Never Assessed Sex Assigned at Date Recorded Not on file documented as of this encounter Progress Notes Provider, [facility] Nurse - 12/15/2009 10:00 AM CDT Poll Clerk: Leslye Robert Status: Final Encounter: 15 Dec 2009 Type: Rooming Note Reason For Visit RENETTA CELESTE is a 74 year old female presenting today with vertigo. Do you have any other appointments of any type today within the [facility] system? (this includes clinic appt's, Imaging, labs, [...] D TABS;INHALE 1 TABLET TWICE DAILY; RPT [place] 3 1000 MG Capsule;INHALE 1 CAPSULE 3 TIMES DAILY; RPT Multivitamin/Iron TABS;TAKE 1 TABLET ONCE DAILY.; RPT Lactaid TABS;TAKE 1 TO 3 TABLETS WITH FIRST BITE OF DAIRY FOOD.; RPT. Signature Signed By: Leslye RYAN; 12/15/2009 10:17 AM WIRE FENCE ERECTOR. documented in this encounter Plan of Treatment Not on filedocumented as of this encounter Visit Diagnoses Not on filedocumented in this encounter
--- OUTSIDE RECORDS SUMMARY | 2022-02-23 06:17 | XMS_ITS | Encounter Summary ---
:1935 [address] [place] [facility] Address [address] [facility] [place] [place] [address] Care Team Providers Name Role Phone Arlin López Primary Care Provider Reason for Visit Auth/Cert - Closed Specialty Diagnoses / Procedures Referred By Contact Refer red To Contact Surgery Diagnoses Right shoulder degenerative joint disease Rh Periop Se rvices Procedures ARTHROPLASTY SHOULDER REVERSE ARTHROPLASTY SHOULDER> [address], [place] [address] Phone: Fax: Referral ID Status Reason Start Date Expiration Date Visits Requ ested Visits Authorized [id number] Closed 1 1 Encounter Details Date Type Department Care Team Description 01/30/2013 Surgery [facility] Evy Farr MD Right Reverse Total Ridges [facility] Shoulder Arthroplasty [address] [facility] [place], [place] [address] [place] [id number] [address] [place] [address] (Wo rk) Surgery Details Date/Time Status Location [...] Will NOT answer to Ella. 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 Pt and had identified [facility] as facility for consideration, assessment completed and they will be able to accept pt there. As arrangements were being finalized for pt's transfer, with providing transport, [facility] after school coordinator called informing that they do have be available. Pt has requested that arrangements be made for her transfer to [facility], arrangements were adjusted and pt discharged to that facility for rehab stay with providing transport ( @ 1015) as noted. With discharge today, no furtehr SWS. Brittani Hinds LSW - 02/01/2013 3:18 PM CDT SWS D: Discharge planning continuing.. Discussed with who informs of plan for pt's transefr tomorrowto rehab facility. [facility] has no openings, awaiting calls back from [facility] to determine if they have opening there. [...] other rehab facilities, they have indicated that [facility], or maybe [facility] as son lives in that area. SW has provided information on rehab facility in thoseidentified areas, requested that pt andhusband review and advise of facilities they may be interested in so assessments can be done. A/P: Discharge disposition undetermined.. SW will follow up with pt and tomorrow for further discharge planning based on decisions that they make. Marquita Tirado MD - 02/01/2013 10:42 AM CDT [facility] Hospitalist Progress Note Assessment and Plan: Patient is a 77 year old female who is POD 1 s/p reverse total shoulder arthroplasty, right 1. Hypertension: BP on the high side. Continue on BILLET WORKER clonidine with parameters. Will continue to monitor blood pressure 2. GERD: Continue on BILLET WORKER omeprazole and famotidine 3. Asthma: has no wheezes. Will continue BILLET WORKER QVAR and Proair inhalers, she has brought them from home. 4. Postherpetic neuralgia: Continue on BILLET WORKER gabapentin 5. Hypothyroidism: Continue on BILLET WORKER levothyroxine 6. S/p reverse total shoulder arthroplasty: [...] date of discharge: 02/02/13 Evy Farr MD [phone] Adia Colorado MD - 01/31/2013 3:50 PM CDT [facility] Hospitalist Progress Note Assessment and Plan: Patient is a 77 year old female who is POD 0 s/p reverse total shoulder arthroplasty, right 1. Hypertension: Elevated. Continue on BILLET WORKER clonidine with parameters. Patient makes it clear that she wishes to have no other medications added to her regimen. 2. GERD: Continue on BILLET WORKER omeprazole and famotidine 3. Asthma: No wheezing currently, well controlled. Resume BILLET WORKER QVAR and Proair inhalers, she has brought them from home. 4. Postherpetic neuralgia: Continue on BILLET WORKER gabapentin 5. Hypothyroidism: Continue on BILLET WORKER levothyroxine 6. Low-grade temperature. No signs of [...] lives with her in their apartment in [place], prior to surgery she had been independent with ambulation and ADLs. I: Met with pt and , they affirm plan for pt's transfer to rehab facility and identify [facility], and [facility] as facility preferences.. they have spoken [...] Transfer Skill: Sit to Stand Level of [place]: Sit/Stand moderate assist (50% patients effort) Physical Assist/Nonphysical Assist: Sit/Stand set-up required;supervision;verbal cues;nonverbal cues(demo/gestures);1 person assist Transfer Skill: Toilet Transfer Level of [place]: Toilet moderate assist (50% patients effort) Physical Assist/Nonphysical Assist: Toilet set-up required;supervision;verbal cues;nonverbal cues (demo/gestures);1 person assist Balance Balance Comments decreased balance upon standing and mobility in bed Upper Body Dressing Level of [place]: Dress Upper Body maximum assist (25% patients effort) Lower Body Dressing Level of [place]: Dress Lower Body maximum assist (25% patients effort) Toileting Level of [place]: Toilet moderate assist (50% patients effort) Grooming Level of [place]: Grooming moderate assist (50% patients effort) Eating/Self Feeding Level of [place]: Eating moderate assist (50% patients effort) (pt's [...] Evaluation Time Total Evaluation Time (Minutes) 15 TAT Saul Tellez - 01/31/2013 11:29 AM CDT [facility] Progress Note [facility] 205 DATA: Responded to a pt request to see a hospital tape calender. Pt was lying in bed awake with her in the room. INTERVENTION: Pt reported being in a lot of pain from the surgery. Pt reported being involved with their mariaelena. Ptmentioned that their loss prevention representative was with them yesterday during the surgery. Pt shared about their children and how they are a support network for them. Pt shared that her and her find hilda in volunteering at a school together. Pt asked for prayer, and we prayed in the room. Pt mentioned being nauseous from the pain. Mortgage Loan Reviewer offered supportive listening and encouragement to pt for their treatment and recovery. ASSESSMENT: Pt seemed to be well supported by her mariaelena community, and her PLAN: Continue to pray for the pt. Mortgage Loan Reviewer availability upon request Saul Tellez Mortgage Loan Reviewer Plug Machine Operator Pager [phone] Candy Crain, PT - 01/31/2013 10:23 AM [...] Pain Yes, see Vital Sign flowsheet (02/22 spasms, 8-9/10 at rest) Posture Posture Comments [...] no complaints. Pain controlled. 1. Hypertension: Resume BILLET WORKER clonidine with parameters 2. GERD: Resume BILLET WORKER omeprazole and famotidine 3. Asthma: No wheezing currently, well controlled. Resume BILLET WORKER QVAR and Proair inhalers, she has brought them from home. 4. Postherpetic neuralgia: Resume BILLET WORKER gabapentin 5. Hypothyroidism: Resume BILLET WORKER levothyroxine 6. S/p reverse total shoulder arthroplasty: Pain management and OT/PT per ortho 7. DVT prophylaxis: PCDs and Lovenox per ortho 8. Code status is DNR/DNI 8. Disposition: Plans to discharge to rehab facility, SW consult ordered. History of Present Illness: This [...] Pharmacy-Medication Teaching - Deborah Van [facility] - 02/02/2013 1:35 PM CDT Fawad Unger 1935 female [id number] Allergy: Food; Penicillins; Sulfa drugs; Animal dander; Aspirin; Atorvastatin; Claritin; Fosamax; Oxycodone; Perfume; Pollen extract; Smoke.; Wool fiber; and Petroleum jelly RX: Discharge Medication Consult by Pharmacist EDUCATION: Discharge Medication List Fawad Unger Home Medication Instructions DAYANA:[id number] Printed on:02/02/13 1333 Medication Information OMEPRAZOLE PO Take 20 mg [...] with medication reconciliation of discharge medications with BILLET WORKER medications. MDwas contacted with any questions/concerns - no concerns. Patient was not counseled or given any education materials as discharged to a TCU facility. Plan of Care - Phuong Leon PTA - 02/02/2013 11:44 AM CDT Problem: General Rehab Plan of Care Goal: Physical Therapy Goals The patient and/or their accounting representative will achieve their patient-specific goals related [...] Physical Therapy Goals The patient and/or their accounting representative will achieve their patient-specific goals related [...] Occupational Therapy Goals The patient and/or their accounting representative will achieve their patient-specific goals related [...] santo with changes. Going to TCU in [place]. Plan of Care - Heather Harp RN - 02/02/2013 7:34 AM CDT Problem: IP GENERAL POC-ADULT,OB,BEHAVIORAL FVCPM Goal: Individualization/Patient-Specific Goal (Adult,OB,Behavioral The patient and/or their accounting representative will achieve their patient-specific goals related to the plan of care. The patient-specific goals include: CTS Discharge planning for transfer to rehab facility. Outcome: Improving Pt did well. Pain controlled with tylenol tonight. Tramadol available however pt did not need it. Daltonar, BS present, passing flatus. Drsg CDI. Hand and shoulder slightly swollen. Sling on. in room. Plan to discharge to rehab today. Plan of Care - Eula Chong RN - 02/01/2013 10:22 PM CDT Problem: IP GENERAL POC-ADULT,OB,BEHAVIORAL FVCPM Goal: Individualization/Patient-Specific Goal (Adult,OB,Behavioral The patient and/or their accounting representative will achieve their patient-specific goals related to the plan of care. The patient-specific goals include: CTS Discharge planning for transfer to rehab facility. Outcome: Improving [facility] Orthopedic Nursing Progress Note Assessment Assessment: [...] Physical Therapy Goals The patient and/or their accounting representative will achieve their patient-specific goals related [...] to stand with CGA. Ambulated 60' with VETERINARY INSPECTOR on L. Slow steps with frequent stops pt appears a little confused at times. Seated R UE Rom toelbow and wrist with increased pain. Recommend discharge to TCU if able, otherwise VETERINARY INSPECTOR and Home PT Plan of Care - [...] Occupational Therapy Goals The patient and/or their accounting representative will achieve their patient-specific goals related [...] Physical Therapy Goals The patient and/or their accounting representative will achieve their patient-specific goals related [...] Min A. Ambulated 6' to commode with VETERINARY INSPECTOR. Commode transfer with CGA with independent with cares Min A for dressing. Ambulated 45' with CGA and VETERINARY INSPECTOR on LUE. Pt shaky and nauseated throughout walk. RUE wrist and elbow ROM with AAROM x10. Recommend discharge to TCU secondary to increased pain, nausea for increased independece. If unable to go to TCU secondary to not having a qualifying stay would recommend VETERINARY INSPECTOR and home therapies Plan of Care - Katey Valderrama RN - 02/01/2013 2:12 AM CDT Problem: IP GENERAL POC-ADULT,OB,BEHAVIORAL FVCPM Goal: Individualization/Patient-Specific Goal (Adult,OB,Behavioral The patient and/or their accounting representative will achieve their patient-specific goals related [...] Care Review (Adult,OB,Behavioral) The patient and/or their accounting representative will communicate an understanding of their [...] down, casas pulled at the end of fast food shift lead and pt has been up to BR [...] Occupational Therapy Goals The patient and/or their accounting representative will achieve their patient-specific goals related [...] Physical Therapy Goals The patient and/or their accounting representative will achieve their patient-specific goals related [...] Individualization/Patient-Specific Goal (Adult,OB,Behavioral The patient and/or their accounting representative will achieve their patient-specific goals related [...] Care Review (Adult,OB,Behavioral) The patient and/or their accounting representative will communicate an understanding of their [...] her bed. IV infusing into left arm, caass cath patent O2 on at 3L NC [...] FARR MD MT: #[id number] Name: FAWAD UNGER MRN: [id number] Account: [id number] : 1935 Procedure Date: 01/30/2013 Document: [id number] Brief Op Note - Evy Farr MD - 01/30/2013 10:33 AM CDT [facility] Orthopedic Brief Operative Note Pre-operative diagnosis: Right shoulder degenerative joint disease Post-operative diagnosis: Same Procedure: Procedure(s): REVERSE ARTHROPLASTY SHOULDER Surgeon: Evy Farr MD Pattern Marking Supervisor(s): none Anesthesia: Combined General with Interscalene Block [...] Signature Platelet Count 178 150 - 450 [place] 10e9/L [facility] Specimen Anatomical Collection Method Collection Time Receive d Time (Source) Location / / Volume Laterality Blood specimen 02/02/2013 6:05 AM 013 6:23 (specimen) CDT AM CDT Evy Farr MD LAB - BLOOD ORDERABLES Performing Organization Address City/State/ZIP Code Phon e Number [facility] [address] [place], [place] [address] [facility] LAB (ABNORMAL) CBC with platelets differential (02/01/2013 6:25 AM CDT) [facility] gist Method Time Signature WBC 12.4 (H) 4.0 - [place] 11.0 [facility] 10e9/L [facility] RBC Count 4.28 3.8 - 5.2 [place] 10e12/L [facility] Hemoglobin 11.0 (L) 11.7 - [place] 15.7 g/dL [facility] Hematocrit 34.3 (L) 35.0 - [place] 47.0 % [facility] MCV 80 78 - 100 [place] fl [facility] MCH 25.7 (L) 26.5 - [place] 33.0 pg [facility] MCHC 32.1 31.5 - [place] 36.5 g/dL [facility] RDW 16.2 (H) 10.0 - [place] 15.0 % [facility] Platelet Count 216 150 - 450 [place] 10e9/L [facility] Diff Method Automated [facility] LAB % Neutrophils 74.8 % [facility] % Lymphocytes 11.3 % [facility] % Monocytes 11.9 % [facility] % Eosinophils 1.3 % [facility] % Basophils 0.3 % [facility] % Immature 0.4 % [place] Granulocytes [facility] Absolute 9.2 (H) 1.6 - 8.3 [place] Neutrophil 10e9/L [facility] Absolute 1.4 0.8 - 5.3 [place] Lymphocytes 10e9/L [facility] Absolute 1.5 (H) 0.0 - 1.3 [place] Monocytes 10e9/L [facility] Absolute 0.2 0.0 - 0.7 [place] Eosinophils 10e9/L [facility] Absolute 0.0 0.0 - 0.2 [place] Basophils 10e9/L [facility] Abs Immature 0.1 0 - 0.4 [facility] 10e9/L [facility] Specimen Anatomical Collection Method Collection Time Receive d Time (Source) Location / / Volume Laterality Blood specimen 02/01/2013 6:25 AM 013 6:56 (specimen) CDT AM CDT Adia Colorado MD LAB - BLOOD ORDERABLES Performing Organization Address [facility] Phon e [place] [address], [place] [address] [facility] LAB (ABNORMAL) Glucose (02/01/2013 6:25 AM CDT) P athologist Signature Glucose 108 (H) 60 - 99 [place] mg/dL [facility] Specimen Anatomical Collection Method Collection Time Receive d Time (Source) Location / / Volume Laterality Blood specimen 02/01/2013 6:25 AM 013 6:56 (specimen) CDT AM CDT Evy Farr MD LAB - BLOOD ORDERABLES Performing Organization Address City/[facility] Phon [place] [address], [place] [address] [facility] LAB (ABNORMAL) Hemoglobin (01/31/2013 5:53 AM CDT) P athologist Signature Hemoglobin 10.5 (L) 11.7 - 15.7 [place] g/dL [facility] Specimen Anatomical Collection Method Collection Time Receive d Time (Source) Location / / Volume Laterality Blood specimen 01/31/2013 5:53 AM 013 6:10 (specimen) CDT AM CDT Evy Farr MD LAB - BLOOD ORDERABLES Performing Organization Address City/[facility] [place] [address], [place] [address] [facility] LAB (ABNORMAL) Glucose (01/31/2013 5:53 AM CDT) P athologist Signature Glucose 112 (H) 60 - 99 [place] mg/dL [facility] Specimen Anatomical Collection Method Collection Time Receive d Time (Source) Location / / Volume Laterality Blood specimen 01/31/2013 5:53 AM 013 6:10 (specimen) CDT AM CDT Evy Farr MD LAB - BLOOD ORDERABLES Performing Organization Address City/[facility]/ZIP [facility] Phon e Number [facility] [address], [place] [address] [facility] Hospitalist IP Consult (01/30/2013 3:31 PM CDT) Evy Farr MD IP CONSULT ORDERABLES Creatinine (01/30/2013 1:00 PM CDT) athologist Signature Creatinine 0.64 0.52 - [place] 1.04 mg/dL [facility] GFR Estimate >90 >60 [place] mL/min/[address] [place] [address] LAB GFR Estimate If >90 >60 [place] Black mL/min/[address] [place] [address] LAB Specimen Anatomical Collection Method Collection Time Receive d Time (Source) Location / / Volume Laterality Blood specimen 01/30/2013 1:00 PM 013 1:05 (specimen) CDT PM CDT Evy Farr MD LAB - BLOOD ORDERABLES Performing Organization Address [facility]/ZIP Code Phon e Number [place] [address], [place] [address] [facility] Platelet count (01/30/2013 1:00 PM CDT) athologist Signature Platelet Count 212 150 - 450 [place] 10e9/L [facility] Specimen Anatomical Collection Method Collection Time Receive d Time (Source) Location / / Volume Laterality Blood specimen 01/30/2013 1:00 PM 013 1:05 (specimen) CDT PM CDT Evy Farr MD LAB - BLOOD ORDERABLES Performing Organization Address City/[facility]/ZIP [facility] Phon e Number [facility] [address], [place] [address] [facility] documented in this encounter Visit Diagnoses [...] RN)2023 (Given - Provider: Abraham Marshall, RT) 08 (Given - Provider: Iliana zelaya, RT)2014 (Given [...] Soto LPN)0730 (Canceled Entry - Provider: Altagracia Preson RN) 25 mcg, Oral, EVERY MORNING BEFORE [...] Post-procedure sertraline (ZOLOFT) tablet 50 mg (CANCELED) 1836 (Give n - Provider: Patricia Delvalle, RN) 1834 (Given - Provider: Eula Chong RN) 50 mg, Oral, EVERY EVENING, First dose on Tue01/30/13 at 2000 Continuous Medication Order 01/31/2013 02/01/2013 02/02/2013 lactated ringers infusion (CANCELED) 0233 (New Bag - P rovider: Katey Valderrama RN) at 75 mL/hr, Intravenous, CONTINUOUS, Ch [...] to take PO, Post-procedure, Hold while on ORDER ENTRY SPECIALIST. HYDROmorphone (DILAUDID) tablet 1-2 mg (CANCELED) 0839 (Given - Provider: Altagracia Person RN)1211 (Given - Provider: Altagracia Person, HEENA) 1-2 mg, Oral, EVERY 3 HOURS PRN, moderat e to severe pain, Starting Tue01/30/13 at 1212, Hold while on ORDER ENTRY SPECIALIST or with regular IV opioid dosing., Post-procedure hydrOXYzine (ATARAX) tablet 10 mg (CANCELED) 0952 (Giv en - Provider: Altagracia Person RN) 10 mg, Oral, EVERY 6 HOURS PRN, [...] pain documented in this encounter Care Teams Resaw Tailer Relationship Specialty Start Date End Date Arlin óLpez PCP - General Internal Medicine 01/18/13 11/14/17 [facility] [address] [place] [address] documented as of this encounter
--- OUTSIDE RECORDS SUMMARY | 2022-02-23 06:17 | XMS_ITS | Encounter Summary ---
:1935 Author Organization [place] Address [facility] [place] [address] Care Team Providers Name Role Phone Arlin López Primary Care Provider Reason for Visit Auth/Cert - Closed Specialty Diagnoses / Procedures Referred By Contact Refer red To Contact Surgery Diagnoses Right shoulder degenerative joint disease Rh Periop Se rvices Procedures ARTHROPLASTY SHOULDER REVERSE ARTHROPLASTY SHOULDER> [address], [place] [address] Phone: Fax: Referral ID Status Reason Start Date Expiration Date Visits Requ ested Visits Authorized [id number] Closed 1 1 Encounter Details Date Type Department Care Team Description 01/29/2013 Hospital Encounter [facility] Sofia pedraza, Jc Wagner MD Laboratory [facility] [address] [facility] ORTHOPEDICS [place], [place] [address] [place] [address] [address] [place] [address] (Wo rk) Social History Tobacco [...] Partial thromboplastin time (01/29/2013 4:28 PM CDT) P athologist Signature PTT 32 22 - 37 sec [facility] Specimen Anatomical Collection Method Collection Time Receive d Time (Source) Location / / Volume Laterality 01/29/2013 4:28 PM 3 4:35 CDT PM CDT Jc Farr MD LAB - BLOOD ORDERABLES Performing Organization Address [facility]/[address] 55 [facility] INR (01/29/2013 4:28 PM CDT) athologist Signature INR 0.95 0.86 - 1.14 [facility] Specimen Anatomical Collection Method Collection Time Receive d Time (Source) Location / / Volume Laterality 01/29/2013 4:28 PM 3 4:35 CDT PM CDT Jc Farr MD LAB - BLOOD ORDERABLES Performing Organization Address [facility]/[place] [address], [place] [address] [facility] Comprehensive metabolic panel (01/29/2013 4:28 PM CDT) P athologist Signature Sodium 139 133 - 144 [place] mmol/L [facility] Potassium 4.0 3.4 - 5.3 [place] mmol/L [facility] Chloride 101 94 - 109 [place] mmol/L [facility] Carbon Dioxide 31 20 - 32 [place] mmol/L [facility] Anion Gap 7 6 - 17 [place] mmol/L [facility] Glucose 98 60 - 99 [place] mg/dL [facility] Urea Nitrogen 16 7 - 30 [place] mg/dL [facility] Creatinine 0.77 0.52 - [place] 1.04 mg/dL [facility] GFR Estimate 73 >60 [place] mL/min/1.[address] LAB GFR Estimate If 88 >60 [place] Black mL/min/1.[address] LAB Calcium 8.9 8.5 - 10.4 [place] mg/dL [facility] Bilirubin Total 0.3 0.2 - 1.3 [place] mg/dL [facility] Albumin 3.8 3.3 - 4.9 [place] g/dL [facility] Protein Total 7.1 6.8 - 8.8 [place] g/dL [facility] Alkaline 62 40 - 150 [place] Phosphatase U/L [facility] ALT 30 0 - 50 U/L [facility] AST 28 0 - 45 U/L [facility] Specimen Anatomical Collection Method Collection Time Receive d Time (Source) Location / / Volume Laterality 01/29/2013 4:28 PM 3 4:35 CDT PM CDT Jc Farr MD LAB - BLOOD ORDERABLES Performing Organization Address City/State/ZIP Code Phon e Number [place] [address], [place] [address] [facility] (ABNORMAL) CBC with platelets differential (01/29/2013 4:28 PM CDT) [facility] gist Method Time Signature WBC 7.4 4.0 - [facility] 11.0 [facility] 10e9/L [facility] RBC Count 4.42 3.8 - 5.2 [place] 10e12/L [facility] Hemoglobin 11.3 (L) 11.7 - [facility] 15.7 g/dL [facility] Hematocrit 36.2 35.0 - [facility] 47.0 % [facility] MCV 82 78 - 100 [place] fl [facility] MCH 25.6 (L) 26.5 - [facility] 33.0 pg [facility] MCHC 31.2 (L) 31.5 - [facility] 36.5 g/dL [facility] RDW 16.4 (H) 10.0 - [facility] 15.0 % [facility] Platelet Count 221 150 - 450 [place] 10e9/L [facility] Diff Method Automated [facility] % Neutrophils 62.5 % [facility] % Lymphocytes 25.2 % [facility] % Monocytes 8.5 % [facility] % Eosinophils 3.1 % [facility] % Basophils 0.4 % [facility] % Immature 0.3 % [place] Granulocytes [facility] Absolute 4.6 1.6 - 8.3 [place] Neutrophil 10e9/L [facility] Absolute 1.9 0.8 - 5.3 [place] Lymphocytes 10e9/L [facility] Absolute 0.6 0.0 - 1.3 [place] Monocytes 10e9/L [facility] Absolute 0.2 0.0 - 0.7 [place] Eosinophils 10e9/L [facility] Absolute 0.0 0.0 - 0.2 [place] Basophils 10e9/L [facility] Abs Immature 0.0 0 - 0.4 [place] Granulocytes [address] [place] [address] LAB Specimen Anatomical Collection Method Collection Time Receive d Time (Source) Location / / Volume Laterality 01/29/2013 4:28 PM 3 4:35 CDT PM CDT Jc Farr MD LAB - BLOOD ORDERABLES Performing Organization Address City/State/ZIP Code Phon e Number M [facility] [address], [place] [address] [facility] ABO/Rh type and screen (01/29/2013 4:28 PM CDT) [facility] gist Method Time Signature ABO A [facility] RH(D) Neg [facility] Antibody Neg [place] Screen [facility] Test Valid [facility] Only At [facility] LAB Specimen 02/01/2013 [place] [facility] Specimen Anatomical Collection Method Collection Time Receive d Time (Source) Location / / Volume Laterality 01/29/2013 4:28 PM 3 4:34 CDT PM CDT Jc Farr MD LAB - BLOOD BANK TEST ORDER Performing Organization Address City/[facility]/ZIP Code Phon e Number M [facility] [address], [place] [address] [facility] documented in this encounter Visit Diagnoses Not on filedocumented in this encounter Care Teams Padded Box Sewer Relationship Specialty Start Date End Date Arlin López PCP - General Internal Medicine 01/18/13 11/14/17 [facility] [address] [place] [address] documented as of this encounter
--- OUTSIDE RECORDS SUMMARY | 2022-02-23 06:17 | XMS_ITS | Encounter Summary ---
:1935 Author Organization [place] Address [address] [place] [address]. [place] [address] Care Team Providers Name Role Phone Unavailable Primary Care Provider Unavailable Encounter Details Date Type Department Care Team Description 12/15/2009 Office Visit-[facility] Ear, Nose and Throat Wilfredo Sanchez MD Clinic [address] [place] [address] 8th Floor, Clinic [address] [place] [address] [address] Social History Tobacco Use Types Packs/Day Years Used Date Smoking Tobacco: Never Assessed Sex Assigned at Date Recorded Not on file documented as of this encounter Progress Notes Cynthia Sanchez - 12/15/2009 10:00 AM CDT Tube Making Machine Operator: Cynthia Sanchez Status: Final - Signature Encounter: 15 Dec 2009 Type: ENT Letter Department of Otolaryngology--Head and Neck Surgery [place] Mail Code [address] [place] [address] Office: [address] December 15, 2009 Vibha Alvarez MD [address] [address] RE: Ally Unger : 1935 YASEMIN: December [...] will help confirm central dysfunction and may pick and shovel worker a vestibular asymmetry. If she continues to have central dysfunction, then my recommendation to her would be to undergo vestibular rehabilitation. In the meantime she is going to do some balance training with one of the personal trainers that comes to their correction complex. Thank you again for your consultation. Please note that the entire 45 minutes of this 50 minute visit were all spent in consultation. Sincerely, Cynthia Sanchez M.D. Department of Otolaryngology TH:carla Electronically signed by:Cynthia Sanchez M.D. Dec 17 2009 1:27PM HYDROCHLORIC ACID OPERATOR documented in this encounter Plan of Treatment Not on filedocumented as of this encounter Visit Diagnoses Not on filedocumented in this encounter
--- OUTSIDE RECORDS SUMMARY | 2022-02-23 06:17 | XMS_ITS | Encounter Summary ---
:1935 Author Organization [place] Address [address] [place] [address]. [place] [address] Care Team Providers Name Role Phone Unavailable Primary Care Provider Unavailable Encounter Details Date Type Department Care Team Description 01/01/2010 Office Visit-[facility] INTERFACE [facility] DEPT Provider, [facility] Nurs e Social History Tobacco Use Types Packs/Day Years Used Date Smoking Tobacco: Never Assessed Sex Assigned at Date Recorded Not on file documented as of this encounter Progress Notes Provider, [facility] Nurse - 01/01/2010 3:08 PM CDT Field Coil Winder: Bekah Leigh Status: Amended, Final Encounter: 01 Jan 2010 Type: Chart Note patient calls with new concern:she understands plan for continuing vertigo as outlined in letter of 12/15/2009. Her chief concern now is whether her hearing loss has been assessed for possible relation to autoimmune hearing loss and why she is more newly intolerant of loud noises(singing in voodoo, babies crying) She feels the right hear had poor hearing, but now left maybe affected. She also wonders if this loss is fixable or has central component She has been looking at the AAO/HNS ([place] Academy of Otolaryngology and Head and Neck surgery) website and feels she should ask about these topics. [phone] Electronically signed by:Bekah Leigh R.N. Jan 01 2010 3:14PM RESIDENT HALL DIRECTOR AMENDMENTS: 1. Will review with Dr.Huang stiles call back early next week. Electronically signed by:Bekah Leigh R.N. Jan 02 2010 3:07PM RESIDENT HALL DIRECTOR Review documented in this encounter Plan of Treatment Not on filedocumented as of this encounter Visit Diagnoses Not on filedocumented in this encounter
[2022-02-23 06:20] VITALS: BP 204/84; PULSE 95; RESP 16; O2SAT 95
[2022-02-23 06:21] LABS: Chloride* 101 mmol/L (96-114); Potassium* 3.3 mmol/L (3.6-5.1); Sodium* 137 mmol/L (135-149)
[2022-02-23 06:24] LABS: Blood Urea Nitrogen* 18 mg/dL (7-30); Calcium* 9.8 mg/dL (8.4-10.6); Carbon Dioxide* 28 mmol/L (20-32); Creatinine* 0.8 mg/dL (0.5-1.5); Est. Creatinine Clearance* 34.46; Estimated Glomerular Filt Rate 72 ml/min; Glucose* 99 mg/dL (60-115)
[2022-02-23 06:33] LABS: NT Pro B Type NatriureticPept* 153 PG/mL (0-450)
[2022-02-23] MEDS: cloNIDine HCL 0.1 MG TABLET 0.05 MG PO (06:42)
== END 2022-02-23 07:01 | disposition home or self-care (01) ==
PROVIDERS: Emergency Provider Family Medicine; PCP Family Medicine
DX: I16.0 Hypertensive urgency (principal)
CPT/HCPCS: 36415; 71046; 80048; 83880; 85025; 93005; 99283; 99284; 99285; A9270

== ENCOUNTER 2022-04-19 15:16 | Outpatient (CLI) | payer MEDICARE, OTHER, SELFPAY ==
--- OUTSIDE RECORDS SUMMARY | 2022-04-19 10:04 | XMS_ITS | Clinical Summary ---
:1935 Author Organization [facility] [place] [address] Care Team Providers Name Role Phone Loren Beyer MD Primary Care Provider [phone] Allergies Active Allergy Reactions Severity Noted [...] Atorvastatin Lisinopril 01/05/2008 Periorbital warren h Calcitonin ([place]) Nsaids (Non-Steroidal Aspirin Contraindication 018 Anti-Inflammatory (for [...] ss Type Group MEDICA MR MEDICA PRIME [id number] 2016-Present [address] [address] [employer]UT[employer] [place] , [facility] [address] [address] (Home) [address] [place] [address] Care Teams Medical Delivery Technician Relationship Specialty Start Date End Date Loren Beyer MD PCP - General Family Practice 10/20/161999 [facility] [place] [address]
--- OUTSIDE RECORDS SUMMARY | 2022-04-19 10:04 | XMS_ITS | Encounter Summary ---
:1935 Author Organization [place] Address [address] [facility] [place] [address] Care Team Providers Name Role Phone Loren Beyer MD Primary Care Provider Reason for Visit Auth/Cert Specialty Diagnoses / Procedures Referred By Contact Refer red To Contact Gastroenterology Diagnoses DYSPHAGIA Sh Endoscopy Procedures COMBINED ESOPHAGOSCOPY, GASTROSCOPY, DUODENOSCOPY (EGD), DILATATION [address] [place] [address] Phone: Referral ID Status Reason Start Date Expiration Date Visits Requ ested Visits Authorized [id number] 1 1 Encounter Details Date Type Department Care Team Description 11/25/2017 Surgery [facility] Antonette Sebastian ESOPHAGO GASTRODUODENOSCOPY WITH Melanie Herzog MD DILATION (MAC) Endoscopy [place] [address] [place] [address] [place] [place] [address] [place], [place] [id number] Surgery Details Date/Time Status Location OR Service [...] Component Value Ref Test Analysis Performed At [facility] Range Method Time Signature Copath Report Patient Name: FAWAD CELESTE MR#: [id number] Specimen #: [id number] Collected: 11/25/2017 Received: 11/25/2017 Reported: 11/28/2017 10:45 [...] substantiates the final diagnosis. CPT Codes: A: 59318-FA3 B: 67639-VQ6 C: 76608-DM3 D: 47978-MT2 TESTING LAB LOCATION: [address] ??[address] COLLECTION SITE: Client: [facility] Specimen (Source) Anatomical Collection Method Collection [...] / biopsy (specimen) Unknown Antonette Sebastian MD [facility] Performing Organization Address City/State/ZIP Code Phon e Number [facility] UPPER GI ENDOSCOPY (11/25/2017 7:16 AM CDT) Component Value Ref Test Analysis Performed At [facility] Range Method Time Signature Upper GI [facility] RADIOLOGY Endoscopy [facility] Endoscopy Department RESULTS Patient Name: Fawad Celeste ? Procedure Date: 11/13 7:16 AM ? Accou nt Number: [id number] Date of : 1935 ?Admit Type: Out patient Age: 82 ? Room: special procedure room #1 Note Status: Finalized ?Attending MD: Antonette Sebastian MD Total Sedation Time: ?Instrument Name: 311 [id number]-HQ190 Gastroscope Procedure: ?Upper GI endoscopy Indications: ?Dysphagia Providers: ?Antoentte Sebastian MD, Andrea Dowell RN Referring MD: [...] Procedure Code(s): ? --- Professional --- ? 75390, Esophagogastroduodenoscopy, flexib le, transoral; with insertion ? of guide wire followed by passage of dila tor(s) through esophagus over ? guide wire ? 96581, 59, Esophagoga stroduodenoscopy, flexible, transoral; with biopsy, ? single or multiple CPT copyright 2017 [employer]. All rights reserved. The codes documented in this report are prelimin wilner and upon medical management trainer review may be revised to meet current compliance requirements. Signed electronically by Antonette Mccoy MD Antonette Sebastian MD 11/25/2017 8:46:16 AM I was physically present for the entire viewing portion of t he exam. Antonette Sebastian MD Number of Addenda: 0 Note Initiated On: 11/25/2017 7:16 AM MRN: ?[id number] Procedure Date: ? 11/25/2017 7:16:00 AM Estimated [...] Pre-procedure documented in this encounter Care Teams Computing Tutor Relationship Specialty Start Date End Date Loren Beyer MD PCP - General [facility] Practice 11/15/[address] [id number] documented as of this encounter
--- OUTSIDE RECORDS SUMMARY | 2022-04-19 10:04 | XMS_ITS | Encounter Summary ---
:1935 Author Organization [place] Address [address] [facility] [place] [address] Care Team Providers Name Role Phone Loren Beyer MD Primary Care Provider [phone] Reason for Visit Auth/Cert Specialty Diagnoses / Procedures Referred By Contact Refer red To Contact Gastroenterology Diagnoses DYSPHAGIA Sh Endoscopy Procedures COMBINED ESOPHAGOSCOPY, GASTROSCOPY, DUODENOSCOPY (EGD), DILATATION [address] [place] [address] Phone: Referral ID Status Reason Start Date Expiration Date Visits Requ ested Visits Authorized [id number] 1 1 Encounter Details Date Type Department Care Team Description 11/25/[address] [facility] Endoscopy MD Ros[place] [address] [place] [address] [facility] [phone] [address] (Wo rk) Social History Tobacco Use Types [...] Component Value Ref Test Analysis Performed At [facility] Range Method Time Signature Copath Report Patient Name: FAWAD CELESTE MR#: [id number] Specimen #: [id number] Collected: 11/25/2017 Received: 11/25/2017 Reported: 11/28/2017 10:45 [...] substantiates the final diagnosis. CPT Codes: A: 10334-UD8 B: 78393-VJ8 C: 79606-RA0 D: 98565-QG6 TESTING LAB LOCATION: [address] ??[address] COLLECTION SITE: Client: [facility] Location: [place] (S) Specimen (Source) Anatomical [...] / biopsy (specimen) Unknown Antonette Sebastian MD [facility] Performing Organization Address City/State/ZIP Code Phon e Number [facility] UPPER GI ENDOSCOPY (11/25/2017 7:16 AM CDT) Component Value Ref Test Analysis Performed At [facility] Range Method Time Signature Upper GI [facility] RADIOLOGY Endoscopy [facility] Endoscopy Department RESULTS Patient Name: Fawad Celeste ? Procedure Date: 11/13 7:16 AM ? Accou nt Number: [id number] Date of : 1935 ?Admit Type: Out patient Age: 82 ? Room: special procedure room #1 Note Status: Finalized ?Attending MD: Antonette Sebastian MD Total Sedation Time: ?Instrument Name: 311 GIF-HQ190 Gastroscope Procedure: ?Upper GI endoscopy Indications: ?Dysphagia Providers: ?Antonette Sebastian MD, Kr veelia Dowell RN Referring MD: ? Jia Beyer [...] Procedure Code(s): ? --- Professional --- ? 22287, Esophagogastroduodenoscopy, flexib le, transoral; with insertion ? of guide wire followed by passage of dila tor(s) through esophagus over ? guide wire ? 35468, 59, Esophagoga stroduodenoscopy, flexible, transoral; with biopsy, ? single or multiple CPT copyright 2017 [employer]. All rights reserved. The codes documented in this report are prelimin wilner and upon gas station clerk review may be revised to meet current compliance requirements. Signed electronically by Antonette Mccoy MD Antonette Sebastian MD 11/25/2017 8:46:16 AM I was physically present for the entire viewing portion of t he exam. Antonette Sebastian MD Number of Addenda: 0 Note Initiated On: 11/25/2017 7:16 AM MRN: ?[id number] Procedure Date: ? 11/25/2017 7:16:00 AM Estimated [...] Pre-procedure documented in this encounter Care Teams Bearing Press Machine Operator Relationship Specialty Start Date End Date Loren Beyer MD PCP - General Family Practice 11/15/[address] [address] documented as of this encounter
--- OUTSIDE RECORDS SUMMARY | 2022-04-19 10:04 | XMS_ITS | Encounter Summary ---
:1935 Author Organization [place] Address [facility] [place] [address] Care Team Providers Name Role Phone Arlin López Primary Care Provider Encounter Details Date Type Department Care Team Description 07/18/2016 Telephone [facility] Nurse Jana Heath, RN Advisors [address] [place] [address] Social History Tobacco Use Types Packs/Day [...] it is due to pain. Requested contacting exceptional children teacher assistant provider Dr. Doran for advice; contacted by [facility] and advises ED evaluation for BP [...] Instructions: Care Advice: Another adult should drive. T DAY CARE WORKER documented in this encounter Plan of Treatment Not on filedocumented as of this encounter Visit Diagnoses Not on filedocumented in this encounter Care Teams Bait Painter Relationship Specialty Start Date End Date Arlin López PCP - General Internal Medicine 01/18/13 11/14/17 [facility] [address] [place] [address] documented as of this encounter
--- OUTSIDE RECORDS SUMMARY | 2022-04-19 10:04 | XMS_ITS | Encounter Summary ---
:1935 Author Organization [place] Address [address] [facility] [place] [address] Care Team Providers Name Role Phone Loren Beyer MD Primary Care Provider [phone] Reason for Visit Auth/Cert Specialty Diagnoses / Procedures Referred By Contact Refer red To Contact Gastroenterology Diagnoses DYSPHAGIA Sh Endoscopy Procedures COMBINED ESOPHAGOSCOPY, GASTROSCOPY, DUODENOSCOPY (EGD), DILATATION [address] [phone] Phone: Referral ID Status Reason Start Date Expiration Date Visits Requ ested Visits Authorized [id number] 1 1 Encounter Details Date Type Department Care Team Description 11/25/2017 Anesthesia Event [facility] Phuong Arias ANESTHESIOLOGY [address] [phone] [facility] Samantha Baird, MANAGER OF EMPLOYEE RELATIONS CLOTH PRINTING BACK TENDER [address] [id number] [phone] Anesthesia Record Procedure Summary [...] Upper forearm; Joy Dowell RN Mewes, Susan Chlorhexidine Erdall, RN documented in this encounter Social History [...] Last vitals: Vitals: 11/25/17 0910 11/25/17 0920 11/25/17 09 BP: 173/69 166/69 Resp: 28 27 SpO2: [...] (Last set prior to Anesthesia Care Transfer) CLOTH PRINTING BACK TENDER VITALS 11/25/2017 0809 - 11/25/2017 0845 11/25/2017 [...] 0845 documented in this encounter Care Teams Slag Mixer Relationship Specialty Start Date End Date Loren Beyer MD PCP - General Family Practice 11/15/17 [place] [address] documented as of this encounter
--- OUTSIDE RECORDS SUMMARY | 2022-04-19 10:04 | XMS_ITS | Continuity of Care Document ---
:1935 Author Organization [facility] Address [address] [address] [place] [address] Phone Care Team Providers Name Role Phone [...] the type is not supported. Please contact [facility] practice for further details. Medications Medication [...] day Procedures Procedure Date Offic/outpt E&m Estab [facility] Ugi Endo; W/insrt Guide Wire Ugi Endo; W/bx 1/mx Offic/outpt E&m Estab [facility] 2 Offic/outpt E&m Estab [facility] 2 Offic/outpt E&m Estab [facility] 2 Offic/outpt E&m Estab [facility] 2 Offic/outpt [facility] Offic/outpt [facility] Offic/outpt E&m [facility] Offic/outpt E&m [facility] Advance Directives Directive Yes / No Effective Date File Name No Information Encounters Encounter Practice Location Reason(s) Diagnoses Date Provider Provide rs Description For Visit Copied on Encounter [facility] No Information Link Digestive [facility] 0-201 [facility], Endoscopy 8 [address] [facility] [address], [address] [facility] [place], [place], [place], [address], [id number], [place], [place], tel:+ [phone] , [place]. tel:[phone] Offic/outpt [place] [facility] Gastroesophageal Edelmira FALK Referring E&m Estab Digestive Symptoms reflux disease Trudy Driver ovider: [facility], or without [address] Concerns esophagitis[facility]astro [facility] [place] [address], (chief [address] , [address] [place] complaint) (primary) [place], [address], [place], [place], hypertension 500, [place] [id number], [place] , [place], [place], [address]. tel:+ [phone] tel:[phone] , [place]. [id number] tel: [phone] [facility] No Information Mikie FALK Referr ing Digestive [place] [facility]. Provider: Health PA, [facility] [address] [facility] [address], Riaz FALK, [address] [place], [address], [place], [place], [address], [place] [id number], [place] , [place], [place], [address]. tel:+ [phone] tel:[phone] , [place]. [id number] tel: [phone] Offic/outpt [facility] Dysphagia, Edelmira FALK Re ferring E&m Estab Digestive Symptoms unspecified Trudy Provi boo: [facility], or typeGastroesophag [address] f[address] Concerns eal reflux [place]. [address], (chief disease, [facility] complaint) esophagitis NE, [place], [place], presence not 500, [id number], specifiedFull [place] incontinence of [place], [place], tel: feces [phone] , [place]. tel: [phone] Offic/outpt [place] [facility] GI Gastroesophageal Edelmira FALK Referring E&m Estab Digestive Symptoms reflux disease, Trudy fallder: [facility], or esophagitis 8 . [address] Concerns presence not [facility] [address], (chief [facility] Riaz FALK, 20 [facility] complaint) a, unspecified NE, [address], [place], [place], typeEssential 500, [place] [id number], (primary) [place] , [place], [place], [address]. tel: [phone] tel:[phone] , [place]. [id number] tel: [phone] Offic/outpt [facility] GI GastroparesisChro Jul- Louise martinez Referring E&m Estab Digestive Symptoms raul 0-201 Provider: [facility], or constipationHeart 6 Jany R eferral [address] Concerns burnEssential E. [address] Self. [address], (chief (primary) [facility] complaint) hypertension Street s, [place], [place], [place] [id number], 500, [place] tel: is, [place], [phone] , [place]. tel: [phone] Offic/outpt [facility] GI Irritable Colon Jaylen FALK Referring E&m Estab [facility] Symptoms 7-201 Corey. Provider: [facility], or 5 [address] Ref[address] Concerns [place]. [address], (chief [facility] complaint) NE, [place], [place], [address], [id number], [place], [place], tel: [phone] , [place]. tel: [phone] Offic/outpt [facility] GI GastroparesisDiet Marianna geller Referring E&m Estab [facility] Symptoms wilner 0-201 Provider: [facility], or Surveil/counselEl 4 Yon. Re ferral PO Box Concerns ev Bl Pres W/o [address] Self. [address], (chief Hypertn [facility] complaint) Street s, [place], Additional [place], [place] [id number], Narrative 500, [place] (chief [facility] tel:+ complaint) is, [place], [phone] , [place]. tel: [phone] Offic/outpt [facility] Mar-2 Clement matos E&m [facility] Generalized 1-201 Provider : [facility], Kinjal Marvin. [address] Mar[place] FALK [address], [place] E, [address] [facility], [place], [place], [facility] [address] [id number], [facility] Practice tel: is, [place], Int Med, [phone] [id number] [facility]. , [place], tel:[phone] tel:[phone] Offic/outpt [facility] [place] Dyspepsia/acid Mar-0 Ethan [employer] Ref erring E&m [facility] Peptic 6-201 Ashley. Provider: [facility] G[facility]ZAL, DiseaseConstipati 4 [address]001 Juana chapman [address] on Unspecified [facility] [address], Pana E, [address] [place], [place], [address] [place] [address], [facility], [place], Practice tel: [phone] Int Med, [id number] , [facility] tel: , [place], [phone]. tel:[phone] Offic/outpt [facility] Dyspepsia/acid Mar-0 Clement delcid E&m [facility] Peptic Disease 3-201 Provide r: [facility] [employer] GHAZAL, Kinjal Marvin. [address] Maribel [place]ALK [address], Orestes E, [address] [facility], [place], [place], [place] [id number], [address] [place] [address] Practice tel: [place], [place], Int Med, [phone] [id number] [facility] , [place], tel: [phone] tel:[phone] Family History Family Member Type Diagnosis Age [...] free, 3 years or older Fluarix Quad [id number] Flu (split) (3 yrs or older) administered Not e: Invalid documented admin date was . ; Source: Other Pr ovider Pneumo (2 yrs or older)(PPV) administered Not e: Invalid documented admin date was . ; Source: Other Provider Payers Payer name Insurance type Covered republican ID Authorization(s ) [employer] Sr 16 [id number] Social History Type Description Quantity Date Captured [...] underlyin g history of gastroparesis made in [place] many years ago, with an associated chronic [...] history of gastroparesis that was diagnosed in [place] a number of years ago. However, she [...] endoscopy Rel ated to Dysphagia, unspecified at [facility] to type include possible dilation and esophageal [...] point because I do not feel would business management analyst. We discussed that this could certainly increase [...] with her primary physician Dr. López in [place]. 1.) I would a agree with Reglan [...]
--- OUTSIDE RECORDS SUMMARY | 2022-04-19 10:04 | XMS_ITS | Clinical Summary ---
:1935 Author Organization [facility] Address [facility] [place] [address] Care Team Providers Name Role Phone Loren Beyer MD Primary Care Provider [phone] Allergies Active Allergy Reactions Severity Noted [...] on file Medical Devices Implanted Type Area Project Engineer Chemicals Device Shelf Model / Identifier Expiration Date Ser ial / Lot Humeral Bearing Standard 44-36mm Right: 10/12/2017 [id number] / Implanted: Qty: 1 on 01/30/2013 by Jc Farr MD at [facility] / [id number] Insurance Payer Benefit Plan / Subscriber ID Effective Phone Address T ype Group Dates MEDICA MEDICA PRIME [id number] 2010-Prese [phone] [address] Indemnity [address]UTION [address] [place] [address] MEDICARE MEDICARE FOR HB [id number] 2008-Prese [phone] ATTN CLAIMS Medicare SUPPLEMENT nt 40 [address] [place] [address] Advance Directives For more information, please contact: [phone] Latest Code Status on File Code Status Date Activated Date Inactivated Comments DNR/DNI 01/30/2013 12:12 PM 02/02/2013 12:40 PM Care Teams Wax Specialist Relationship Specialty Start Date End Date Loren Beyer MD PCP - General Family Practice 11/15/[address] [address]
--- OUTSIDE RECORDS SUMMARY | 2022-04-19 10:05 | XMS_ITS | Encounter Summary ---
:1935 Author Organization [place] Address [facility] [place] [address] Care Team Providers Name Role Phone Unavailable Primary Care Provider Unavailable Encounter Details Date Type Department Care Team Description 12/15/2009 Office Visit-[facility] INTERFACE [facility] DEPT Provider, [facility] Nurs e Social History Tobacco Use Types Packs/Day Years Used Date Smoking Tobacco: Never Assessed Sex Assigned at Date Recorded Not on file documented as of this encounter Progress Notes Provider, [facility] Nurse - 12/15/2009 10:00 AM CDT Rental Representative: Leslye Robert Status: Final Encounter: 15 Dec 2009 Type: Rooming Note Reason For Visit RENETTA CELESTE is a 74 year old female presenting today with vertigo. Do you have any other appointments of any type today within the [facility] system? (this includes clinic appt's, Imaging, [...] D TABS;INHALE 1 TABLET TWICE DAILY; RPT [place] 3 1000 MG Capsule;INHALE 1 CAPSULE 3 TIMES DAILY; RPT Multivitamin/Iron TABS;TAKE 1 TABLET ONCE DAILY.; RPT Lactaid TABS;TAKE 1 TO 3 TABLETS WITH FIRST BITE OF DAIRY FOOD.; RPT. Signature Signed By: Leslye RYAN; 12/15/2009 10:17 AM NETWORK ANNOUNCER. documented in this encounter Plan of Treatment Not on filedocumented as of this encounter Visit Diagnoses Not on filedocumented in this encounter
--- OUTSIDE RECORDS SUMMARY | 2022-04-19 10:05 | XMS_ITS | Encounter Summary ---
:1935 Author Organization [place] Address [address] [facility] [place] [address] Care Team Providers Name Role Phone Maribel Arlin Primary Care Provider Reason for Visit Auth/Cert - Closed Specialty Diagnoses / Procedures Referred By Contact Refer red To Contact Surgery Diagnoses Right shoulder degenerative joint disease Rh Periop Se rvices Procedures ARTHROPLASTY SHOULDER REVERSE ARTHROPLASTY SHOULDER> [address] [place], [place] [address] Phone: Fax: Referral ID Status Reason Start Date Expiration Date Visits Requ ested Visits Authorized [id number] Closed 1 1 Encounter Details Date Type Department Care Team Description 01/30/2013 Surgery [facility] Evy Farr MD Right Reverse Total Ridges PeriOp Servic es [facility] Shoulder Arthroplasty [address] [facility] [place], [place] [address] [facility] [id number] [address] [place] [address] (Wo rk) Surgery Details Date/Time Status Location OR Service Patient Case Case Traum a Class Class Type Case? 01/30/13 7:30 Posted RH OR OR 02 Orthopedics Surgery AM Admit [...] Farr MD - 02/01/2013 10:44 AM CDT [facility] Discharge Summary Fawad Unger [id number] Age: [age] year old 1935 Date of [...] activity: Activity as tolerated Sling time study clerk except for showering and dressing or doing [...] this morning from Mery at [facility] informing that they have no openings there. Pt and had identified [facility] as facility for consideration, assessment completed and they will be able to accept pt there. As arrangements were being finalized for pt's transfer, with providing transport, [facility] hospital unit coordinator called informing that they do have be available. Pt has requested that arrangements be made for her transfer to [facility], arrangements were adjusted and pt discharged to that facility for rehab stay with providing transport ( @ 1015) as noted. With discharge today, no furtehr SWS. Brittani Hinds LSW - 02/01/2013 3:18 PM CDT SWS D: Discharge planning continuing.. Discussed with MD who informs of plan for pt's transefr tomorrowto rehab facility. [facility] has no openings, awaiting calls back from [facility] to determine if they have opening there. [...] other rehab facilities, they have indicated that [place], or maybe [facility] as son lives in that area. SW [...] Baer MD - 02/01/2013 10:42 AM CDT [facility] Hospitalist Progress Note Assessment and Plan: Patient is a 77 year old female who is POD 1 s/p reverse total shoulder arthroplasty, right 1. Hypertension: BP on the high side. Continue on BALANCE SHEET ANALYST clonidine with parameters. Will continue to monitor blood pressure 2. GERD: Continue on BALANCE SHEET ANALYST omeprazole and famotidine 3. Asthma: has no wheezes. Will continue BALANCE SHEET ANALYST QVAR and Proair inhalers, she has brought them from home. 4. Postherpetic neuralgia: Continue on BALANCE SHEET ANALYST gabapentin 5. Hypothyroidism: Continue on BALANCE SHEET ANALYST levothyroxine 6. S/p reverse total shoulder arthroplasty: [...] 82 PLT 216 -- 212 221 Evy Frar MD - 02/01/2013 8:11 AM CDT Post [...] date of discharge: 02/02/13 Evy Farr MD [phone] Adia Colorado MD - 01/31/2013 3:50 PM CDT [facility] Hospitalist Progress Note Assessment and Plan: Patient is a 77 year old female who is POD 0 s/p reverse total shoulder arthroplasty, right 1. Hypertension: Elevated. Continue on BALANCE SHEET ANALYST clonidine with parameters. Patient makes it clear that she wishes to have no other medications added to her regimen. 2. GERD: Continue on BALANCE SHEET ANALYST omeprazole and famotidine 3. Asthma: No wheezing currently, well controlled. Resume BALANCE SHEET ANALYST QVAR and Proair inhalers, she has brought them from home. 4. Postherpetic neuralgia: Continue on BALANCE SHEET ANALYST gabapentin 5. Hypothyroidism: Continue on BALANCE SHEET ANALYST levothyroxine 6. Low-grade temperature. No signs of [...] lives with her in their apartment in [place], prior to surgery she had been independent with ambulation and ADLs. I: Met with pt and , they affirm plan for pt's transfer to rehab facility and identify [facility], and [facility] as facility preferences.. they have spoken [...] Transfer Skill: Sit to Stand Level of Blanco: Sit/Stand moderate assist (50% patients effort) Physical Assist/Nonphysical Assist: Sit/Stand set-up required;supervision;verbal cues;nonverbal cues(demo/gestures);1 person assist Transfer Skill: Toilet Transfer Level of Blanco: Toilet moderate assist (50% patients effort) Physical Assist/Nonphysical Assist: Toilet set-up required;supervision;verbal cues;nonverbal cues (demo/gestures);1 person assist Balance Balance Comments decreased balance upon standing and mobility in bed Upper Body Dressing Level of Blanco: Dress Upper Body maximum assist (25% patients effort) Lower Body Dressing Level of Blanco: Dress Lower Body maximum assist (25% patients effort) Toileting Level of Blanco: Toilet moderate assist (50% patients effort) Grooming Level of Blanco: Grooming moderate assist (50% patients effort) Eating/Self Feeding Level of Blanco: Eating moderate assist (50% patients effort) (pt's [...] AM CDT [facility] Progress Note [facility] 205 DATA: Responded to a pt request to see a hospital scraper burrer. Pt was lying in bed awake with her in the room. INTERVENTION: Pt reported being in a lot of pain from the surgery. Pt reported being involved with their mariaelena. Ptmentioned that their furnace unloader was with them yesterday during the surgery. Pt shared about their children and how they are a support network for them. Pt shared that her and her find hilda in volunteering at a school together. Pt asked for prayer, and we prayed in the room. Pt mentioned being nauseous from the pain. Web Design Specialist offered supportive listening and encouragement to pt for their treatment and recovery. ASSESSMENT: Pt seemed to be well supported by her mariaelena community, and her PLAN: Continue to pray for the pt. Web Design Specialist availability upon request Saul Tellez Web Design Specialist Damage Adjuster Pager [phone] Candy Crain, PT - 01/31/2013 10:23 AM CDT 01/31/13 0900 Quick Adds Type of Visit Initial PT Evaluation Living Environment (R) Lives With spouse Living Arrangements apartment (senior housing) Living Environment Comment Lives in shelter. Pt has supportive . Self-Care Dominant Hand [...] no complaints. Pain controlled. 1. Hypertension: Resume BALANCE SHEET ANALYST clonidine with parameters 2. GERD: Resume BALANCE SHEET ANALYST omeprazole and famotidine 3. Asthma: No wheezing currently, well controlled. Resume BALANCE SHEET ANALYST QVAR and Proair inhalers, she has brought them from home. 4. Postherpetic neuralgia: Resume BALANCE SHEET ANALYST gabapentin 5. Hypothyroidism: Resume BALANCE SHEET ANALYST levothyroxine 6. S/p reverse total shoulder arthroplasty: [...] Miscellaneous Notes Pharmacy-Medication Teaching - Deborah Van [facility] - 02/02/2013 1:35 PM CDT Fawad Unger 1935 female [id number] Allergy: Food; Penicillins; Sulfa drugs; Animal dander; Aspirin; Atorvastatin; Claritin; Fosamax; Oxycodone; Perfume; Pollen extract; Smoke.; Wool fiber; and Petroleum jelly RX: Discharge Medication Consult by Pharmacist EDUCATION: Discharge Medication List Fawad Unger Home Medication Instructions DAYANA:[id number] Printed on:02/02/13 1339 Medication Information OMEPRAZOLE PO Take 20 mg [...] with medication reconciliation of discharge medications with BALANCE SHEET ANALYST medications. MDwas contacted with any questions/concerns - no concerns. Patient was not counseled or given any education materials as discharged to a TCU facility. Plan of Care - Phuong Leon PTA - 02/02/2013 11:44 AM CDT Problem: General Rehab Plan of Care Goal: Physical Therapy Goals The patient and/or their traffic workforce representative will achieve their patient-specific goals related [...] Physical Therapy Goals The patient and/or their traffic workforce representative will achieve their patient-specific goals related [...] Occupational Therapy Goals The patient and/or their traffic workforce representative will achieve their patient-specific goals related [...] santo with changes. Going to TCU in [place]. Plan of Care - Heather Harp RN - 02/02/2013 7:34 AM CDT Problem: IP GENERAL POC-ADULT,OB,BEHAVIORAL FVCPM Goal: Individualization/Patient-Specific Goal (Adult,OB,Behavioral The patient and/or their traffic workforce representative will achieve their patient-specific goals related [...] Individualization/Patient-Specific Goal (Adult,OB,Behavioral The patient and/or their traffic workforce representative will achieve their patient-specific goals related to the plan of care. The patient-specific goals include: CTS Discharge planning for transfer to rehab facility. Outcome: Improving [facility] Orthopedic Nursing Progress Note Assessment Assessment: [...] Physical Therapy Goals The patient and/or their traffic workforce representative will achieve their patient-specific goals related [...] to stand with CGA. Ambulated 60' with LINEN WORKER on L. Slow steps with frequent stops pt appears a little confused at times. Seated R UE Rom toelbow and wrist with increased pain. Recommend discharge to TCU if able, otherwise LINEN WORKER and Home PT Plan of Care [...] Occupational Therapy Goals The patient and/or their traffic workforce representative will achieve their patient-specific goals related [...] Physical Therapy Goals The patient and/or their traffic workforce representative will achieve their patient-specific goals related [...] Min A. Ambulated 6' to commode with LINEN WORKER. Commode transfer with CGA with independent with cares Min A for dressing. Ambulated 45' with CGA and LINEN WORKER on LUE. Pt shaky and nauseated throughout walk. RUE wrist and elbow ROM with AAROM x10. Recommend discharge to TCU secondary to increased pain, nausea for increased independece. If unable to go to TCU secondary to not having a qualifying stay would recommend LINEN WORKER and home therapies Plan of Care - Katey Valderrama RN - 02/01/2013 2:12 AM CDT Problem: IP GENERAL POC-ADULT,OB,BEHAVIORAL FVCPM Goal: Individualization/Patient-Specific Goal (Adult,OB,Behavioral The patient and/or their traffic workforce representative will achieve their patient-specific goals related [...] Care Review (Adult,OB,Behavioral) The patient and/or their traffic workforce representative will communicate an understanding of their [...] down, casas pulled at the end of mingle operator and pt has been up to [...] Occupational Therapy Goals The patient and/or their traffic workforce representative will achieve their patient-specific goals related [...] initiated; pt lives with supportive in independent shelter, previously I with ADLs; pt currently limited [...] Physical Therapy Goals The patient and/or their traffic workforce representative will achieve their patient-specific goals related [...] Frequency: BID PT- Eval completed. Pt in 8-10/ pain resting in bed. Pt appears to [...] Individualization/Patient-Specific Goal (Adult,OB,Behavioral The patient and/or their traffic workforce representative will achieve their patient-specific goals related [...] Care Review (Adult,OB,Behavioral) The patient and/or their traffic workforce representative will communicate an understanding of their [...] #[id number] Name: FAWAD UNGER MRN: [id number] Account: [id number] : 1935 Procedure Date: 01/30/2013 Document: [id number] Brief Op Note - Evy Farr MD - 01/30/2013 10:33 AM CDT [facility] Orthopedic Brief Operative Note Pre-operative diagnosis: Right shoulder degenerative joint disease Post-operative diagnosis: Same Procedure: Procedure(s): REVERSE ARTHROPLASTY SHOULDER Surgeon: Evy Farr MD Electrical Experimental Mechanic(s): none Anesthesia: Combined General with Interscalene Block Estimated blood loss: 100cc Blood transfusion: No transfusion was given during surgery Drains: None Specimens: None Complications: None Condition: Stable Comments: See dictated operative report for full details Pharmacy-Admission Medication History - Jade Soliz [facility] - 01/22/2013 7:23 PM CDT Med rec [...] Needs Will NOT answer to Rose. Kary Jose'10.5 / 113.5 lb - stated documented in this encounter Results Platelet count (02/02/2013 6:05 AM CDT) P athologist Signature Platelet Count 178 150 - 450 [place] [id number] [facility] Specimen Anatomical Collection Method Collection Time Receive d Time (Source) Location / / Volume Laterality Blood specimen 02/02/2013 6:05 AM 013 6:23 (specimen) CDT AM CDT Evy Farr MD LAB - BLOOD ORDERABLES Performing Organization Address City/State/ZIP Code Phon e Number M [facility] [address] [place], [place] [address] [facility] (ABNORMAL) CBC with platelets differential (02/01/2013 6:25 AM CDT) [facility] gist Method Time Signature WBC 12.4 (H) 4.0 - [place] 11.0 [facility] 10e9/L [facility] RBC Count 4.28 3.8 - 5.2 [place] 10e12/L [facility] Hemoglobin 11.0 (L) 11.7 - [place] 15.7 g/dL [facility] Hematocrit 34.3 (L) 35.0 - [place] 47.0 % [facility] MCV 80 78 - 100 [place] fl [facility] MCH 25.7 (L) 26.5 - [place] 33.0 pg [facility] MCHC 32.1 31.5 - [place] 36.5 g/dL [facility] RDW 16.2 (H) 10.0 - [place] 15.0 % [facility] Platelet Count 216 150 - 450 [place] 10e9/L [facility] Diff Method Automated [facility] % Neutrophils 74.8 % [facility] % Lymphocytes 11.3 % [facility] % Monocytes 11.9 % [facility] % Eosinophils 1.3 % [facility] % Basophils 0.3 % [facility] % Immature 0.4 % [place] Granulocytes [facility] Absolute 9.2 (H) 1.6 - 8.3 [place] Neutrophil 10e9/L [facility] Absolute 1.4 0.8 - 5.3 [place] Lymphocytes 10e9/L [facility] Absolute 1.5 (H) 0.0 - 1.3 [place] Monocytes 10e9/L [facility] Absolute 0.2 0.0 - 0.7 [place] Eosinophils 10e9/L [facility] Absolute 0.0 0.0 - 0.2 [place] Basophils 10e9/L [facility] Abs Immature 0.1 0 - 0.4 [place] Granulocytes 10e9/L [facility] Specimen Anatomical Collection Method Collection Time Receive d Time (Source) Location / / Volume Laterality Blood specimen 02/01/2013 6:25 AM 013 6:56 (specimen) CDT AM CDT Adia Colorado MD LAB - BLOOD ORDERABLES Performing Organization Address City/[facility] Phon e Number [place] [address] [place], [place] [address] [facility] LAB (ABNORMAL) Glucose (02/01/2013 6:25 AM CDT) P athologist Signature Glucose 108 (H) 60 - 99 [place] mg/dL [facility] Specimen Anatomical Collection Method Collection Time Receive d Time (Source) Location / / Volume Laterality Blood specimen 02/01/2013 6:25 AM 013 6:56 (specimen) CDT AM CDT Evy Farr MD LAB - BLOOD ORDERABLES Performing Organization Address City/[facility] Phon e Number [place] [address] [place], [place] [address] [facility] LAB (ABNORMAL) Hemoglobin (01/31/2013 5:53 AM CDT) P athologist Signature Hemoglobin 10.5 (L) 11.7 - 15.7 [place] g/dL [facility] Specimen Anatomical Collection Method Collection Time Receive d Time (Source) Location / / Volume Laterality Blood specimen 01/31/2013 5:53 AM 013 6:10 (specimen) CDT AM CDT Evy Farr MD LAB - BLOOD ORDERABLES Performing Organization Address City/[facility] Phon e Number [place] [address] [place], [place] [address] [facility] LAB (ABNORMAL) Glucose (01/31/2013 5:53 AM CDT) P athologist Signature Glucose 112 (H) 60 - 99 [facility] mg/dL [facility] Specimen Anatomical Collection Method Collection Time Receive d Time (Source) Location / / Volume Laterality Blood specimen 01/31/2013 5:53 AM 013 6:10 (specimen) CDT AM CDT Evy Farr MD LAB - BLOOD ORDERABLES Performing Organization Address City/[facility]/ZIP [facility] Phon e Number [place] [address] [place], [place] [address] [facility] Hospitalist IP Consult (01/30/2013 3:31 PM CDT) Evy Farr MD IP CONSULT ORDERABLES Creatinine (01/30/2013 1:00 PM CDT) athologist Signature Creatinine 0.64 0.52 - [place] 1.04 mg/dL [facility] GFR Estimate >90 >60 [place] mL/min/[address] [place] [address] LAB GFR Estimate If >90 >60 [place] Black mL/min/[address] LAB Specimen Anatomical Collection Method Collection Time Receive d Time (Source) Location / / Volume Laterality Blood specimen 01/30/2013 1:00 PM 013 1:05 (specimen) CDT PM CDT Evy Farr MD LAB - BLOOD ORDERABLES Performing Organization Address City/[facility]/ZIP Code Phon e Number [place] [address] [place], [place] [address] [facility] Platelet count (01/30/2013 1:00 PM CDT) athologist Signature Platelet Count 212 150 - 450 [place] 10e9/L [facility] Specimen Anatomical Collection Method Collection Time Receive d Time (Source) Location / / Volume Laterality Blood specimen 01/30/2013 1:00 PM 013 1:05 (specimen) CDT PM CDT Evy Farr MD LAB - BLOOD ORDERABLES Performing Organization Address City/[facility]/ZIP [facility] Phon e Number [place] [address] [place], [place] [address] [facility] documented in this encounter Visit [...] 1836 (Give n - Provider: Patricia Delvalle, HEENA) 1834 (Given - Provider: Eula Chong RN) [...] to take PO, Post-procedure, Hold while on WORD PROCESSOR TECHNICIAN. HYDROmorphone (DILAUDID) tablet 1-2 mg (CANCELED) 0839 (Given - Provider: Altagracia Person RN)1211 (Given - Provider: Altagracia Person RN) 1-2 mg, Oral, EVERY 3 HOURS PRN, moderat e to severe pain, Starting Tue01/30/13 at 1212, Hold while on WORD PROCESSOR TECHNICIAN or with regular IV opioid dosing., Post-procedure [...] pain documented in this encounter Care Teams Utility Locator Relationship Specialty Start Date End Date Arlin López PCP - General Internal Medicine 01/18/13 11/14/[address] [place] [address] [address] documented as of this encounter
--- OUTSIDE RECORDS SUMMARY | 2022-04-19 10:05 | XMS_ITS | Encounter Summary ---
:1935 Author Organization [place] Address [facility] [place] [address] Care Team Providers Name Role Phone MaribelJuanaArlin Primary Care Provider Reason for Visit Auth/Cert - Closed Specialty Diagnoses / Procedures Referred By Contact Refer red To Contact Surgery Diagnoses Right shoulder degenerative joint disease Rh Periop Se rvices Procedures ARTHROPLASTY SHOULDER REVERSE ARTHROPLASTY SHOULDER> [address], [place] [address] Phone: Fax: Referral ID Status Reason Start Date Expiration Date Visits Requ ested Visits Authorized [id number] Closed 1 1 Encounter Details Date Type Department Care Team Description 01/29/2013 Hospital Encounter [facility] Jc Phelps MD Laboratory [facility] [address] [facility] ORTHOPEDICS [place], [place] [address] [place] [address] [address] [place] [address] (Wo rk) Social History Tobacco [...] Signature PTT 32 22 - 37 sec [facility] Specimen Anatomical Collection Method Collection Time Receive d Time (Source) Location / / Volume Laterality 01/29/2013 4:28 PM 3 4:35 CDT PM CDT Jc Farr MD LAB - BLOOD ORDERABLES Performing Organization Address [facility]/[address] [facility] INR (01/29/2013 4:28 PM CDT) athologist Signature INR 0.95 0.86 - 1.14 [facility] Specimen Anatomical Collection Method Collection Time Receive d Time (Source) Location / / Volume Laterality 01/29/2013 4:28 PM 3 4:35 CDT PM CDT Jc Farr MD LAB - BLOOD ORDERABLES Performing Organization Address [facility]/[place] [address], [place] [address] [facility] Comprehensive metabolic panel (01/29/2013 4:28 PM CDT) athologist Signature Sodium 139 133 - 144 [place] mmol/L [facility] Potassium 4.0 3.4 - 5.3 [place] mmol/L [facility] Chloride 101 94 - 109 [place] mmol/L [facility] Carbon Dioxide 31 20 - 32 [place] mmol/L [facility] Anion Gap 7 6 - 17 [place] mmol/L [facility] Glucose 98 60 - 99 [place] mg/dL [facility] Urea Nitrogen 16 7 - 30 [place] mg/dL [facility] Creatinine 0.77 0.52 - [facility] 1.04 mg/dL [facility] GFR Estimate 73 >60 [place] mL/min/1.[address] LAB GFR Estimate If 88 >60 [place] Black mL/min/1.[address] LAB Calcium 8.9 8.5 - 10.4 [place] mg/dL [facility] Bilirubin Total 0.3 0.2 - 1.3 [place] mg/dL [facility] Albumin 3.8 3.3 - 4.9 [place] g/dL [facility] Protein Total 7.1 6.8 - 8.8 [place] g/dL [facility] Alkaline 62 40 - 150 [place] Phosphatase U/L [facility] ALT 30 0 - 50 U/L [facility] AST 28 0 - 45 U/L [facility] Specimen Anatomical Collection Method Collection Time Receive d Time (Source) Location / / Volume Laterality 01/29/2013 4:28 PM 3 4:35 CDT PM CDT Jc Farr MD LAB - BLOOD ORDERABLES Performing Organization Address City/State/ZIP Code Phon e Number M [facility] [address] [place] [address] [facility] (ABNORMAL) CBC with platelets differential (01/29/2013 4:28 PM CDT) [facility] Method Time Signature WBC 7.4 4.0 - [place] 11.0 [facility] 10e9/L [facility] RBC Count 4.42 3.8 - 5.2 [place] 10e12/L [facility] Hemoglobin 11.3 (L) 11.7 - [facility] 15.7 g/dL [facility] Hematocrit 36.2 35.0 - [facility] 47.0 % [facility] MCV 82 78 - 100 [place] fl [facility] MCH 25.6 (L) 26.5 - [place] 33.0 pg [facility] MCHC 31.2 (L) 31.5 - [place] 36.5 g/dL [facility] RDW 16.4 (H) 10.0 - [facility] 15.0 % [facility] Platelet Count 221 150 - 450 [place] 10e9/[facility] Diff Method Automated [facility] % Neutrophils 62.5 % [facility] % Lymphocytes 25.2 % [facility] % Monocytes 8.5 % [facility] % Eosinophils 3.1 % [facility] % Basophils 0.4 % [facility] % Immature 0.3 % [place] Granulocytes [facility] Absolute 4.6 1.6 - 8.3 [place] Neutrophil 10e9/L [facility] Absolute 1.9 0.8 - 5.3 [place] Lymphocytes 10e9/L [facility] Absolute 0.6 0.0 - 1.3 [place] Monocytes 10e9/L [facility] Absolute 0.2 0.0 - 0.7 [place] Eosinophils 10e9/L [facility] Absolute 0.0 0.0 - 0.2 [place] Basophils 10e9/L [facility] Abs Immature 0.0 0 - 0.4 [place] Granulocytes 10e/[facility] Specimen Anatomical Collection Method Collection Time Receive d Time (Source) Location / / Volume Laterality 01/29/2013 4:28 PM 3 4:35 CDT PM CDT Jc Farr MD LAB - BLOOD ORDERABLES Performing Organization Address City/State/ZIP Code Phon e Number [place] [id number], [place] [address] [facility] ABO/Rh type and screen (01/29/2013 4:28 PM CDT) [facility] gist Method Time Signature ABO A [facility] RH(D) Neg [facility] Antibody Neg [place] Screen [facility] Test Valid [facility] [place] Only At [facility] Specimen 02/01/2013 [place] [facility] Spec[facility] Anatomical Collection Method Collection Time Receive d Time (Source) Location / / Volume Laterality 01/29/2013 4:28 PM 3 4:34 CDT PM CDT Jc Farr MD LAB - BLOOD BANK TEST ORDER Performing Organization Address City/[facility]/ZIP Code Phon e Number [place] [address], [place] [address] [facility] documented in this encounter Visit Diagnoses Not on filedocumented in this encounter Care Teams Group Practice Pediatrician Relationship Specialty Start Date End Date Arlin López PCP - General Internal Medicine 01/18/13 11/14/17 [facility] [address] [place] [address] documented as of this encounter
--- OUTSIDE RECORDS SUMMARY | 2022-04-19 10:05 | XMS_ITS | Encounter Summary ---
:1935 Author Organization [place] Address [address] [place] [address]. [place] [address] Care Team Providers Name Role Phone Unavailable Primary Care Provider Unavailable Encounter Details Date Type Department Care Team Description 08/25/2012 Results Only Ear, Nose and Throat Cynthia aSnchez MD Clinic [address] [facility] [address], [address] [place] [address] Toni [facility] [phone] (Work) [address] [facility] [address] [place], [place] [phone] Social History Tobacco Use [...]
--- OUTSIDE RECORDS SUMMARY | 2022-04-19 10:05 | XMS_ITS | Encounter Summary ---
:1935 Author Organization [place] Address Pending sale to [facility] [place] [address] Care Team Providers Name Role Phone Arlin López Primary Care Provider Reason for Visit Reason Onset Date Comments Referral 02/02/2013 MTM Encounter Details Date Type Department Care Team Description 02/02/2013 Telephone [facility] Pharm D Hilton López Referral (MTM) Project [facility] [address] [facility] [address] [place], [place] [id number] [place] [address] [phone] (Wo rk) Social History Tobacco Use Types [...] in participating in the program Nancy Marie [facility] Coordinator documented in this encounter Plan of Treatment Not on filedocumented as of this encounter Visit Diagnoses Not on filedocumented in this encounter Care Teams Ship Fitter Relationship Specialty Start Date End Date Arlin López PCP - General Internal Medicine 01/18/13 11/14/17 [facility] [address] [place] [address] documented as of this encounter
--- OUTSIDE RECORDS SUMMARY | 2022-04-19 10:05 | XMS_ITS | Encounter Summary ---
:1935 Author Organization [place] Address [facility] [place] [address] Care Team Providers Name Role Phone Juana Lópezherine Primary Care Provider Reason for Referral Specialty Diagnoses / Procedures Referred By Contact Refer red To Contact [facility] [address] [place] [address] Referral ID Status Reason Start Date Expiration Date Visits Requ ested Visits Authorized Reason for Visit Auth/Cert - Closed Specialty Diagnoses / Procedures Referred By Contact Refer red To Contact Surgery Diagnoses Right shoulder degenerative joint disease Rh Periop Se rvices Procedures ARTHROPLASTY SHOULDER REVERSE ARTHROPLASTY SHOULDER> [address], [place] [address] Phone: Fax: Referral ID Status Reason Start Date Expiration Date Visits Requ ested Visits Authorized [id number] Closed 1 1 Encounter Details Date Type Department Care Team Description 01/30/2013 - Hospital Encounter [facility] Evy Farr arthritis 02/02/2013 Arnie Jethro Wagner MD (Primary Dx) Surgical [facility] [address] [facility] [place], [place] [address] [address] [facility] [address] [place] [address] Social History Tobacco Use Types [...] Farr MD - 02/01/2013 10:44 AM CDT [facility] Discharge Summary Fawad Unger [id number] Age: [age] year old 1935 Date of [...] Regular Discharge activity: Activity as tolerated Sling motion and time study teacher except for showering and dressing or doing [...] this morning from Mery at [facility] informing that they have no openings there. Pt and had identified [facility] as facility for consideration, assessment completed and they will be able to accept pt there. As arrangements were being finalized for pt's transfer, with providing transport, [facility] intermission coordinator called informing that they do have be available. Pt has requested that arrangements be made for her transfer to [facility], arrangements were adjusted and pt discharged to that facility for rehab stay with providing transport ( @ 1015) as noted. With discharge today, no furtehr SWS. Brittani Hinds LSW - 02/01/2013 3:18 PM CDT SWS D: Discharge planning continuing.. Discussed with who informs of plan for pt's transefr tomorrowto rehab facility. [facility] has no openings, awaiting calls back from [facility] to determine if they have opening [...] other rehab facilities, they have indicated that [place], or maybe [facility] as son lives in that area. [...] BP on the high side. Continue on ELECTRONIC CALIBRATION TECHNICIAN clonidine with parameters. Will continue to monitor blood pressure 2. GERD: Continue on ELECTRONIC CALIBRATION TECHNICIAN omeprazole and famotidine 3. Asthma: has no wheezes. Will continue ELECTRONIC CALIBRATION TECHNICIAN QVAR and Proair inhalers, she has brought them from home. 4. Postherpetic neuralgia: Continue on ELECTRONIC CALIBRATION TECHNICIAN gabapentin 5. Hypothyroidism: Continue on ELECTRONIC CALIBRATION TECHNICIAN levothyroxine 6. S/p reverse total shoulder arthroplasty: [...] date of discharge: 02/02/13 Evy Farr MD [phone] Adia Colorado MD - 01/31/2013 3:50 PM CDT [facility] Hospitalist Progress Note Assessment and Plan: Patient is a 77 year old female who is POD 0 s/p reverse total shoulder arthroplasty, right 1. Hypertension: Elevated. Continue on ELECTRONIC CALIBRATION TECHNICIAN clonidine with parameters. Patient makes it clear that she wishes to have no other medications added to her regimen. 2. GERD: Continue on ELECTRONIC CALIBRATION TECHNICIAN omeprazole and famotidine 3. Asthma: No wheezing currently, well controlled. Resume ELECTRONIC CALIBRATION TECHNICIAN QVAR and Proair inhalers, she has brought them from home. 4. Postherpetic neuralgia: Continue on ELECTRONIC CALIBRATION TECHNICIAN gabapentin 5. Hypothyroidism: Continue on ELECTRONIC CALIBRATION TECHNICIAN levothyroxine 6. Low-grade temperature. No signs of [...] lives with her in their apartment in [place], prior to surgery she had been independent with ambulation and ADLs. I: Met with pt and , they affirm plan for pt's transfer to rehab facility and identify [facility], and [facility] as facility preferences.. they have spoken to [...] Transfer Skill: Sit to Stand Level of Mchenry: Sit/Stand moderate assist (50% patients effort) Physical Assist/Nonphysical Assist: Sit/Stand set-up required;supervision;verbal cues;nonverbal cues(demo/gestures);1 person assist Transfer Skill: Toilet Transfer Level of Mchenry: Toilet moderate assist (50% patients effort) Physical Assist/Nonphysical Assist: Toilet set-up required;supervision;verbal cues;nonverbal cues (demo/gestures);1 person assist Balance Balance Comments decreased balance upon standing and mobility in bed Upper Body Dressing Level of Mchenry: Dress Upper Body maximum assist (25% patients effort) Lower Body Dressing Level of Mchenry: Dress Lower Body maximum assist (25% patients effort) Toileting Level of Mchenry: Toilet moderate assist (50% patients effort) Grooming Level of Mchenry: Grooming moderate assist (50% patients effort) Eating/Self Feeding Level of Mchenry: Eating moderate assist (50% patients effort) (pt's [...] Time Total Evaluation Time (Minutes) 15 Saul Poon - 01/31/2013 11:29 AM CDT [facility] Progress Note [facility] 205 DATA: Responded to a pt request to see a hospital corrugated sheet material sheeter. Pt was lying in bed awake with her in the room. INTERVENTION: Pt reported being in a lot of pain from the surgery. Pt reported being involved with their mariaelena. Ptmentioned that their gas scrubber operator was with them yesterday during the surgery. Pt shared about their children and how they are a support network for them. Pt shared that her and her find hilda in volunteering at a school together. Pt asked for prayer, and we prayed in the room. Pt mentioned being nauseous from the pain. Bookmobile Clerk offered supportive listening and encouragement to pt for their treatment and recovery. ASSESSMENT: Pt seemed to be well supported by her mariaelena community, and her PLAN: Continue to pray for the pt. Bookmobile Clerk availability upon request Saul Tellez Bookmobile Clerk Relief Salesperson Pager [phone] Candy Lopez, PT - 01/31/2013 10:23 AM CDT 01/31/13 0900 Quick Adds Type of Visit Initial PT Evaluation Living Environment (R) Lives With spouse Living Arrangements apartment (senior housing) Living Environment Comment Lives in care home. Pt has supportive . Self-Care Dominant Hand [...] no complaints. Pain controlled. 1. Hypertension: Resume ELECTRONIC CALIBRATION TECHNICIAN clonidine with parameters 2. GERD: Resume ELECTRONIC CALIBRATION TECHNICIAN omeprazole and famotidine 3. Asthma: No wheezing currently, well controlled. Resume ELECTRONIC CALIBRATION TECHNICIAN QVAR and Proair inhalers, she has brought them from home. 4. Postherpetic neuralgia: Resume ELECTRONIC CALIBRATION TECHNICIAN gabapentin 5. Hypothyroidism: Resume ELECTRONIC CALIBRATION TECHNICIAN levothyroxine 6. S/p reverse total shoulder arthroplasty: [...] MD documented in this encounter Nursing Notes Antl, Yessica M, RN - 01/30/2013 11:02 AM CDT In [...] Miscellaneous Notes Pharmacy-Medication Teaching - Deborah Van RPH - 02/02/2013 1:35 PM CDT Fawad Unger 1935 female [id number] Allergy: Food; Penicillins; Sulfa drugs; Animal dander; Aspirin; Atorvastatin; Claritin; Fosamax; Oxycodone; Perfume; Pollen extract; Smoke.; Wool fiber; and Petroleum jelly RX: Discharge Medication Consult by Pharmacist EDUCATION: Discharge Medication List Fawad Unger Home Medication Instructions DAYANA:[id number] Printed on:02/02/13 1335 Medication Information OMEPRAZOLE PO [...] with medication reconciliation of discharge medications with ELECTRONIC CALIBRATION TECHNICIAN medications. MDwas contacted with any questions/concerns - no concerns. Patient was not counseled or given any education materials as discharged to a TCU facility. Plan of Care - Phuong Leon PTA - 02/02/2013 11:44 AM CDT Problem: General Rehab Plan of Care Goal: Physical Therapy Goals The patient and/or their surgical sales representative will achieve their patient-specific goals [...] Physical Therapy Goals The patient and/or their surgical sales representative will achieve their patient-specific goals [...] Occupational Therapy Goals The patient and/or their surgical sales representative will achieve their patient-specific goals [...] santo with changes. Going to TCU in [place]. Plan of Care - Heather Harp RN - 02/02/2013 7:34 AM CDT Problem: IP GENERAL POC-ADULT,OB,BEHAVIORAL FVCPM Goal: Individualization/Patient-Specific Goal (Adult,OB,Behavioral The patient and/or their surgical sales representative will achieve their patient-specific goals [...] Individualization/Patient-Specific Goal (Adult,OB,Behavioral The patient and/or their surgical sales representative will achieve their patient-specific goals [...] Physical Therapy Goals The patient and/or their surgical sales representative will achieve their patient-specific goals [...] to stand with CGA. Ambulated 60' with SENIOR TERADATA DEVELOPER on L. Slow steps with frequent stops pt appears a little confused at times. Seated R UE Rom toelbow and wrist with increased pain. Recommend discharge to TCU if able, otherwise SENIOR TERADATA DEVELOPER and Home PT Plan of Care - [...] Occupational Therapy Goals The patient and/or their surgical sales representative will achieve their patient-specific goals [...] Physical Therapy Goals The patient and/or their surgical sales representative will achieve their patient-specific goals [...] Min A. Ambulated 6' to commode with SENIOR TERADATA DEVELOPER. Commode transfer with CGA with independent with cares Min A for dressing. Ambulated 45' with CGA and SENIOR TERADATA DEVELOPER on LUE. Pt shaky and nauseated throughout walk. RUE wrist and elbow ROM with AAROM x10. Recommend discharge to TCU secondary to increased pain, nausea for increased independece. 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 shift and pt has been up to BR [...] Occupational Therapy Goals The patient and/or their surgical sales representative will achieve their patient-specific goals [...] initiated; pt lives with supportive in independent care home, previously I with ADLs; pt currently limited [...] Physical Therapy Goals The patient and/or their surgical sales representative will achieve their patient-specific goals [...] Individualization/Patient-Specific Goal (Adult,OB,Behavioral The patient and/or their surgical sales representative will achieve their patient-specific goals [...] Care Review (Adult,OB,Behavioral) The patient and/or their surgical sales representative will communicate an understanding of [...] EM#[id number] Name: FAWAD UNGER MRN: [id number] Account: [id number] : 1935 Procedure Date: 01/30/2013 Document: [id number] Brief Op Note - Evy Farr MD - 01/30/2013 10:33 AM CDT [facility] Orthopedic Brief Operative Note Pre-operative diagnosis: Right shoulder degenerative joint disease Post-operative diagnosis: Same Procedure: Procedure(s): REVERSE ARTHROPLASTY SHOULDER Surgeon: Evy Farr MD Shank Faker(s): none Anesthesia: Combined General with Interscalene Block [...] Signature Platelet Count 178 150 - 450 [place] 10e9/L [facility] Specimen Anatomical Collection Method Collection Time Receive d Time (Source) Location / / Volume Laterality Blood specimen 02/02/2013 6:05 AM 013 6:23 (specimen) CDT AM CDT Evy Farr MD LAB - BLOOD ORDERABLES Performing Organization Address City/State/ZIP Code Ellen e Antonia Maldonado [facility] Yoselin E Aniya [place], [place] [address] [facility] (ABNORMAL) CBC with platelets differential (02/01/2013 6:25 AM CDT) [facility] gist Method Time Signature WBC 12.4 (H) 4.0 - [place] 11.0 [facility] 10e9/L [facility] RBC Count 4.28 3.8 - 5.2 [place] 10e12/L [facility] Hemoglobin 11.0 (L) 11.7 - [place] 15.7 g/dL [facility] Hematocrit 34.3 (L) 35.0 - [place] 47.0 % [facility] MCV 80 78 - 100 [place] fl [facility] MCH 25.7 (L) 26.5 - [place] 33.0 pg [facility] MCHC 32.1 31.5 - [place] 36.5 g/dL [facility] RDW 16.2 (H) 10.0 - [place] 15.0 % [facility] Platelet Count 216 150 - 450 [place] 109/[facility] Diff Method Automated [facility] LAB % Neutrophils 74.8 % [facility] % Lymphocytes 11.3 % [facility] % Monocytes 11.9 % [facility] % Eosinophils 1.3 % [facility] % Basophils 0.3 % [facility] % Immature 0.4 % [place] Granulocytes [facility] Absolute 9.2 (H) 1.6 - 8.3 [place] Neutrophil 10e9/L [facility] Absolute 1.4 0.8 - 5.3 [place] Lymphocytes 10e9/L [facility] Absolute 1.5 (H) 0.0 - 1.3 [place] Monocytes 10e9/L [facility] Absolute 0.2 0.0 - 0.7 [place] Eosinophils 10e9/L [facility] Absolute 0.0 0.0 - 0.2 [place] Basophils 10e9/L [facility] Abs Immature 0.1 0 - 0.4 [place] Granulocytes 10e9/L [facility] Specimen Anatomical Collection Method Collection Time Receive d Time (Source) Location / / Volume Laterality Blood specimen 02/01/2013 6:25 AM 013 6:56 (specimen) CDT AM CDT Adia Colorado MD LAB - BLOOD ORDERABLES Performing Organization Address [facility]/ZIP [facility] Phon e Number [place] [address], [place] [address] [facility] (ABNORMAL) Glucose (02/01/2013 6:25 AM CDT) P athologist Signature Glucose 108 (H) 60 - 99 [place] mg/dL [facility] Specimen Anatomical Collection Method Collection Time Receive d Time (Source) Location / / Volume Laterality Blood specimen 02/01/2013 6:25 AM 013 6:56 (specimen) CDT AM CDT Evy Farr MD LAB - BLOOD ORDERABLES Performing Organization Address City/[facility]/ZIP [facility] Phon e Number [place] [address], [place] [address] [facility] (ABNORMAL) Hemoglobin (01/31/2013 5:53 AM CDT) P athologist Signature Hemoglobin 10.5 (L) 11.7 - 15.7 [place] g/dL [facility] Specimen Anatomical Collection Method Collection Time Receive d Time (Source) Location / / Volume Laterality Blood specimen 01/31/2013 5:53 AM 013 6:10 (specimen) CDT AM CDT Evy Farr MD LAB - BLOOD ORDERABLES Performing Organization Address City/[facility] Phon e Number [place] [address], [place] [address] [facility] (ABNORMAL) Glucose (01/31/2013 5:53 AM CDT) P athologist Signature Glucose 112 (H) 60 - 99 [place] mg/dL [facility] Specimen Anatomical Collection Method Collection Time Receive d Time (Source) Location / / Volume Laterality Blood specimen 01/31/2013 5:53 AM 013 6:10 (specimen) CDT AM CDT Evy Farr MD LAB - BLOOD ORDERABLES Performing Organization Address City/[facility]/ZIP Code Phon e Number [facility] [address], [place] [address] [facility] Hospitalist IP Consult (01/30/2013 3:31 PM CDT) Evy Farr MD IP CONSULT ORDERABLES Creatinine (01/30/2013 1:00 PM CDT) athologist Signature Creatinine 0.64 0.52 - [place] 1.04 mg/dL [facility] GFR Estimate >90 >60 [place] mL/min/[address] [place] [address] LAB GFR Estimate If >90 >60 [facility] [employer] mL/min/[address] LAB Specimen Anatomical Collection Method Collection Time Receive d Time (Source) Location / / Volume Laterality Blood specimen 01/30/2013 1:00 PM 013 1:05 (specimen) CDT PM CDT Evy Farr MD LAB - BLOOD ORDERABLES Performing Organization Address City/[facility]/ZIP Code Phon e Number [address] [facility] Platelet count (01/30/2013 1:00 PM CDT) athologist Signature Platelet Count 212 150 - 450 [place] 10e9/L [facility] Specimen Anatomical Collection Method Collection Time Receive d Time (Source) Location / / Volume Laterality Blood specimen 01/30/2013 1:00 PM 013 1:05 (specimen) CDT PM CDT Evy Farr MD LAB - BLOOD ORDERABLES Performing Organization Address City/[facility]/ZIP [facility] Phon e Number [facility] [address], [place] [address] [facility] documented in this encounter [...] baseline or <100,000/??L and notify MD., Post-procedure Given 02/01/2013 5:14 AM CDT 40 [...] mg, Intravenous, EVERY 2 HOURS PRN, severe pain (7-10), or if patient unable to take PO, Starting on Tue01/30/13 at 1212, Hold while on PRIMING MIXTURE CARRIER., Post-procedure Given 01/31/2013 5:00 AM CDT 0.2 mg Given 01/31/2013 2:32 AM CDT 0.2 mg Left Arm HYDROmorphone (DILAUDID) tablet 1-2 mg Given 01/31/2013 12:11 PM CDT 1 mg 1-2 mg, Oral, EVERY 3 HOURS PRN, moderate to severe pain, Starting on Tue01/30/13 at 1212, Hold while on PRIMING MIXTURE CARRIER or with regular IV opioid dosing., Post-procedure [...] to take PO, Post-procedure, Hold while on PRIMING MIXTURE CARRIER. HYDROmorphone (DILAUDID) tablet 1-2 mg (CANCELED) 0839 (Given - Provider: Altagracia Person, HEENA)1211 (Given - Provider: Altagracia Person, HEENA) 1-2 mg, Oral, EVERY 3 HOURS PRN, moderat e to severe pain, Starting Tue01/30/13 at 1212, Hold while on PRIMING MIXTURE CARRIER or with regular IV opioid dosing., Post-procedure [...] mg, Oral, EVERY 6 HOURS PRN, Starting Tue13 at 1641, moderate to severe pain documented in this encounter Care Teams Repulping Supervisor Relationship Specialty Start Date End Date Arlin López PCP - General Internal Medicine 01/18/13 11/14/17 [facility] [address] [place] [address] documented as of this encounter
--- OUTSIDE RECORDS SUMMARY | 2022-04-19 10:05 | XMS_ITS | Encounter Summary ---
:1935 Author Organization [place] Address [address] [place] [address]. [place] [address] Care Team Providers Name Role Phone Unavailable Primary Care Provider Unavailable Encounter Details Date Type Department Care Team Description 01/01/2010 Office Visit-[facility] INTERFACE [facility] DEPT Provider, [facility] Nurs e Social History Tobacco Use Types Packs/Day Years Used Date Smoking Tobacco: Never Assessed Sex Assigned at Date Recorded Not on file documented as of this encounter Progress Notes Provider, [facility] Nurse - 01/01/2010 3:08 PM CDT Child Caregiver Private Home: Bekah Leigh Status: Amended, Final Encounter: 01 Jan 2010 Type: Chart Note patient calls with new concern:she understands plan for continuing vertigo as outlined in letter of 12/15/2009. Her chief concern now is whether her hearing loss has been assessed for possible relation to autoimmune hearing loss and why she is more newly intolerant of loud noises(singing in hindu, babies crying) She feels the right hear had poor hearing, but now left maybe affected. She also wonders if this loss is fixable or has central component She has been looking at the AAO/HNS ([place] [employer] Otol[employer] and Head and Neck [employer]) website and feels she should ask about these topics. [phone] Electronically signed by:Bekah Leigh R.N. Jan 01 2010 3:14PM BEARING RING ASSEMBLER AMENDMENTS: 1. Will review with Dr.Huang stiles call back early next week. Electronically signed by:Bekah Leigh R.N. Jan 02 2010 3:07PM BEARING RING ASSEMBLER Review documented in this encounter Plan of Treatment Not on filedocumented as of this encounter Visit Diagnoses Not on filedocumented in this encounter
--- OUTSIDE RECORDS SUMMARY | 2022-04-19 10:05 | XMS_ITS | Encounter Summary ---
:1935 Author Organization [place] Address [address] [place] [address]. [place] [address] Care Team Providers Name Role Phone Unavailable Primary Care Provider Unavailable Encounter Details Date Type Department Care Team Description 01/09/2010 Office Visit-[facility] INTERFACE [facility] DEPT Provider, [facility] Nurs e Social History Tobacco Use Types Packs/Day Years Used Date Smoking Tobacco: Never Assessed Sex Assigned at Date Recorded Not on file documented as of this encounter Progress Notes Provider, [facility] Nurse - 01/09/2010 10:30 AM CDT Filtration Operator: Bekah Leigh Status: Final - Signature Encounter: [...] by:Bekah Leigh R.N. Jan 09 2010 10:40AM CLINICAL CARE MANAGER Review documented in this encounter Plan of Treatment Not on filedocumented as of this encounter Visit Diagnoses Not on filedocumented in this encounter
--- OUTSIDE RECORDS SUMMARY | 2022-04-19 10:05 | XMS_ITS | Encounter Summary ---
:1935 Author Organization [place] Address [facility] [place] [address] Care Team Providers Name Role Phone Juana Lópezherine Primary Care Provider Reason for Visit (Routine) - Closed Specialty Diagnoses / Procedures Referred By Contact Refer red To Contact Radiology / Radiology. Diagnoses R#N/A, Medica, Medicare, sb: Non Epic. Pt to arrive at 9:00 to start prep, draw creatinine. Rh Ct Scan Procedures CT ABDOMEN PELVIS W [address] [place] [address] Phone: Fax: Referral ID Status Reason Start Date Expiration Date Visits Requ ested Visits Authorized [id number] Closed 07/19/2013 07/19/2014 1 1 Encounter Details Date Type Department Care Team Description 07/20/2013 [facility] Ashley Long, Dyspepsia (Primary Dx); Encounter [facility] AUTO ROLLER IMMIGRATION GUARD Constipation [address] [place], [place] [id number] [phone] Social History Tobacco Use Types Packs/Day Years [...] AM Dyspepsi a Results for this CONTRAST TRANSPORTATION REFRIGERATION TECHNICIAN Constipation procedure are i n the results section. ISTAT CREATININE Routine 07/20/2013 10:18 AM Resu lts for this POCT TRANSPORTATION REFRIGERATION TECHNICIAN procedure are i n the results section. documented in this encounter Results CT Abdomen Pelvis w Contrast (07/20/2013 11:33 AM TRANSPORTATION REFRIGERATION TECHNICIAN) Anatomical Region Laterality Modality Abdomen/Pelvis, SUBRAD CT BODY, UMP CT ABDOMEN PELVIS Computed Tomography Specimen (Source) Anatomical Location Collection Method / Collectio n Time Received Time / Laterality Volume Impressions 07/20/2013 12:07 PM TRANSPORTATION REFRIGERATION TECHNICIAN Impression: 1. Gallstone. 2. Colonic diverticulosis. No definite e vidence for acute diverticulitis. DEMETRIUS HEARN MD Narrative 07/20/2013 12:07 PM TRANSPORTATION REFRIGERATION TECHNICIAN CT ABDOMEN PELVIS W CONTRAST ??07/20/2013 11:33 [...] diverticulitis. DEMETRIUS HEARN MD Ashley Long APRN IMMIGRATION GUARD IMG CT ORDERABLES Creatinine POCT (07/20/2013 10:18 AM TRANSPORTATION REFRIGERATION TECHNICIAN) P athologist Signature Creatinine 0.8 0.52 - POINT OF CARE 1.04 mg/dL TEST, HANDHELD METER GFR Estimate 70 >60 POINT OF CARE mL/min/1.7 TEST, HANDHELD m2 METER GFR Estimate If 84 >60 POINT OF CARE Black mL/min/1.7 TEST, HANDHELD m2 METER Specimen Anatomical Collection Method Collection Time Receive d Time (Source) Location / / Volume Laterality 07/20/2013 10:18 07/20/2013 AM TRANSPORTATION REFRIGERATION TECHNICIAN 10:25 AM TRANSPORTATION REFRIGERATION TECHNICIAN Ashley Long APRN IMMIGRATION GUARD LAB - BEAKER POCT Performing Organization Address [...] iopamidol (ISOVUE-370) 76% Given 07/20/2013 11:29 AM TRANSPORTATION REFRIGERATION TECHNICIAN 58 mLs solution 500 mL 500 mL, Intravenous, ONCE, On Tue07/20/13 at 1130, For 1 dose sodium chloride 0.9 % BOLUS 1,000 mL New Bag 07/20/2013 11:28 AM TRANSPORTATION REFRIGERATION TECHNICIAN 55 mLs Intravenous, 1,000 mL, ONCE, On Tue07/20/13 at 1130, For 1 dose documented in this encounter Care Teams Roll Panner Relationship Specialty Start Date End Date Arlin López PCP - General Internal Medicine 01/18/13 11/14/[address] [id number] documented as of this encounter
--- OUTSIDE RECORDS SUMMARY | 2022-04-19 10:05 | XMS_ITS | Encounter Summary ---
:1935 Author Organization [place] Address [address] [facility] [place] [address] Care Team Providers Name Role Phone Arlin López Primary Care Provider Reason for Visit Auth/Cert - Closed Specialty Diagnoses / Procedures Referred By Contact Refer red To Contact Surgery Diagnoses Right shoulder degenerative joint disease Rh Periop Se rvices Procedures ARTHROPLASTY SHOULDER REVERSE ARTHROPLASTY SHOULDER> [address], [place] [address] Phone: Fax: Referral ID Status Reason Start Date Expiration Date Visits Requ ested Visits Authorized [id number] Closed 1 1 Encounter Details Date Type Department Care Team Description 01/30/2013 Anesthesia Event [facility] Anirudh Vargas PeriOp [facility] MD Jeovany [address] [place] [address] ANESTHESIA [id number] [place], [place] [address] (Wo rk) Anesthesia Record [...] Present 09 Present 09 Present 1018 Present 1022 [address] END SEVO [...] Steve Rubin, endotracheal tube; Blade JORDON Hughes ASSISTANT [employer]PORATION COUNSEL Steve brooks APRN Type: Concepcion; Blade ASSISTANT CORPORATION COUNSEL Size: 2; Place by: ps; Insertion Attempts: [...] benefits and alternatives discussed with: patient or direct sales representative. Possibility of blood products discussed. [...] NOTE Pre-Procedure Performed by Tanja Referred by FANYNY Location: pre-op. ?? PreAnesthestic Checklist: patient identi [...] gloves Nerve Stim: Initial Level 0.7 mA. [place] t motor response mA. Needle: insulated, short [...] gloves Nerve Stim: Initial Level 0.7 mA. [place] t motor response mA. Needle: insulated, short [...] subdural or intrathecal injection. Leon Vargas MD [place] ANESTHESIA documented in this encounter Visit Diagnoses [...] Pre-procedure documented in this encounter Care Teams Day Worker Relationship Specialty Start Date End Date Arlin López PCP - General Internal Medicine 01/18/13 11/14/17 [facility] [address] [place] [address] documented as of this encounter
--- OUTSIDE RECORDS SUMMARY | 2022-04-19 10:05 | XMS_ITS | Encounter Summary ---
:1935 Author Organization [place] Address [address] [place] [address]. [place] [address] Care Team Providers Name Role Phone Unavailable Primary Care Provider Unavailable Encounter Details Date Type Department Care Team Description 12/15/2009 Office Visit-[facility] N[facility] Wilfredo Sanchez MD Clinic [address] [place] [address] 8th Floor, Clinic [address] [place] [address] [address] Social History Tobacco Use Types Packs/Day Years Used Date Smoking Tobacco: Never Assessed Sex Assigned at Date Recorded Not on file documented as of this encounter Progress Notes Cynthia Sanchez - 12/15/2009 10:00 AM CDT Industrial Staff Nurse: Cynthia Sanchez Status: Final - Signature Encounter: 15 Dec 2009 Type: ENT Letter Department of Otolaryngology--Head and Neck Surgery [place] Mail Code [address] [place] [address] [place] [address] Office: 8th Floor [address] December 15, 2009 Vibha Alvarez MD [address] [address] RE: Ally Unger : 1935 YASEMIN: December [...] will help confirm central dysfunction and may machine operator picker a vestibular asymmetry. If she continues to have central dysfunction, then my recommendation to her would be to undergo vestibular rehabilitation. In the meantime she is going to do some balance training with one of the personal trainers that comes to their fdc complex. Thank you again for your consultation. Please note that the entire 45 minutes of this 50 minute visit were all spent in consultation. Sincerely, Cynthia Sanchez M.D. Department of Otolaryngology TH:carla Electronically signed by:Cynthia Sanchez M.D. Dec 17 2009 1:27PM BARN AND PROPERTY MANAGER documented in this encounter Plan of Treatment Not on filedocumented as of this encounter Visit Diagnoses Not on filedocumented in this encounter
[2022-04-19 11:21] LABS: Albumin* 4.2 g/dL (3.3-5.0); Chloride* 103 mmol/L (96-114); Sodium* 140 mmol/L (135-149)
[2022-04-19 11:23] LABS: Creatinine* 0.9 mg/dL (0.5-1.5); Estimated Glomerular Filt Rate 63 ml/min
[2022-04-19 11:24] LABS: Alanine Aminotransferase* 20 U/L (4-35); Alkaline Phosphatase* 61 U/L (40-150); Aspartate Amino Transferase* 28 U/L (12-35); Bilirubin Total* 0.4 mg/dL (0.1-1.5); Blood Urea Nitrogen* 22 mg/dL (7-30); Carbon Dioxide* 29 mmol/L (20-32); Glucose* 171 mg/dL (60-115); Total Protein* 7.1 g/dL (6.0-8.3)
[2022-04-19 11:25] LABS: Calcium* 9.1 mg/dL (8.4-10.6)
[2022-04-19 11:35] LABS: Vitamin D 25 Hydroxy* 40 ng/mL (30-80)
== END 2022-04-19 15:17 | disposition home or self-care (01) ==
PROVIDERS: PCP Family Medicine; Visit Provider Family Medicine
DX: E03.9 Hypothyroidism, unspecified (principal); I10 Essential (primary) hypertension; M81.0 Age-related osteoporosis without current pathological fracture
CPT/HCPCS: 80053; 82306; 84443

== ENCOUNTER 2022-05-23 10:47 | Outpatient (CLI) | payer MEDICARE, OTHER, SELFPAY ==
--- OUTSIDE RECORDS SUMMARY | 2022-05-26 18:54 | XMS_ITS | Continuity of Care Document ---
:1935 Author Organization [facility] Address [address] [address] [place] [address] Phone Care Team Providers Name Role Phone [...] type is not supported. Please contact [facility] practice for further details. Medications Medication [...] day Procedures Procedure Date Offic/outpt E&m Estab [facility]gi Endo; W/insrt Guide Wire Ugi Endo; W/bx 1/mx Offic/outpt E&m Estab [facility] 2 Offic/outpt E&m Estab [facility] 2 Offic/outpt E&m Estab [facility] 2 Offic/outpt E&m Estab [facility] 2 Offic/outpt E&m [facility] Offic/outpt E&m [facility] Offic/outpt E&m Estab [facility] Offic/outpt E&m [facility] Advance Directives Directive Yes / No Effective Date File Name No Information Encounters Encounter Practice Location Reason(s) Diagnoses Date Provider Provide rs Description For Visit Copied on Encounter [facility] No Information Link Digestive [facility] 0-201 [facility], Endoscopy 8 7316 [facility] [address], Street [facility] [place], [place], [place], 500, [id number], [place], [place], tel:+ [phone] , [place]. tel:+ [phone] Offic/outpt [place] [facility] GI Gastroesophageal Edelmira FALK Referring E&m Estab Digestive Symptoms reflux disease Trudy Driver ovider: [facility], or without [address] Concerns esophagitisGastro [facility] hanna [address], (chief paresisEssential [address] , 200 0 [place] complaint) (primary) NE, [address], [place], [place], hypertension 500, [place] [id number], [place] , [place], [place], [address]. tel:+ [phone] tel:[phone] , [place]. [id number] tel: [phone] [facility] No Information Mikie FALK Referr ing Digestive [facility]. Provider: Health PA, [facility] 8 [address] [facility] [address], Riaz FALK, [address] [place], [address], [place], [place], 500, [place] [id number], [place] , [place], [place], [address]. tel:+ [phone] tel:[phone] , [place]. [id number] tel: [phone] Offic/outpt [facility] GI Dysphagia, Edelmira FALK Re ferring E&m Estab Digestive Symptoms unspecified Trudy Provi boo: Mod-hi 2 Health PA, or typeGastroesophag [address] f[address] PO Box Concerns eal reflux [place] Self. [address], (chief disease, [facility]) esophagitis NE, [place], [place], presence not 500, [id number], specifiedFull [place] incontinence of [place], [place], tel: feces [phone] , [place]. tel: [phone] Offic/outpt [place] [facility] GI Gastroesophageal Edelmira FALK Referring E&m Estab Digestive Symptoms reflux disease, Trudy fallder: Mod-hi 2 Health PA, or esophagitis 8 . [address] Concerns presence not [facility] [address], (chief [facility] Riaz FALK, 20 [facility] complaint) a, unspecified NE, [address], [place], [place], typeEssential 500, [place] [id number], (primary) [place] , [place], [place], [address]. tel: [phone] tel:[phone] , [place]. [id number] tel: [phone] Offic/outpt [facility] GI GastroparesisChro Jul- Louise martinez Referring E&m Estab Digestive Symptoms raul 0-201 Provider: Mod-hi 2 Health PA, or constipationHeart 6 Jany R eferral PO Box Concerns burnEssential E. 3001 Self. [address], (chief (primary) [facility] complaint) hypertension Street s, [place], [place], [place] [id number], 500, [place] tel: is, [place], [phone] , [place]. tel: [phone] Offic/outpt [facility] GI Irritable Colon Jaylen FALK Referring E&m Estab Digestive Clinic Symptoms 7-201 Corey. Provider: Mod-hi 2 Health PA, or 5 [address] Concerns [place] Self. [address], (chief [facility] complaint) NE, [place], [place], 500, [id number], [place], [place], tel: [phone] , [place]. tel: [phone] Offic/outpt [facility] GI GastroparesisDiet Marianna geller Referring E&m Estab [facility] Clinic Symptoms wilner 0-201 Provider: [facility] PA, or Surveil/counselEl 4 Yon. Re ferral PO Box Concerns ev Bl Pres W/o 3001 Self. [address], (chief Hypertn [facility] complaint) Street s, [place], Additional NE, [place] [id number], [place]arr[place] 500, [place] (chief [facility] tel:+ complaint) is, [place], [phone] [id number] , [place]. tel: [phone] Offic/outpt [facility] [place] Abd Pain Mar-2 Clement matos E&m [facility] Digestive Clinic Generalized 1-201 Provider : [email or web address] GHAZAL, Kinjal Marvin. Arlin [address] Mar[place] [address], [place] E, 1999 [facility], [place], [place], [facility] [address] [id number], [facility], [facility] Practice tel: is, [place], Int Med, [phone] [id number] [facility]. , [place], tel: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 Digestive Clinic Peptic 6-201 Ashley. Provider: [email or web address] GHAZAL, DiseaseConstipati 4 [address]001 Juana chapman [address] Box on Unspecified [facility] [address], [place] E, 1999 [place], [place], [address] [place] [address], [facility], [place], Practice tel: [phone] Int Med, [id number] , [facility] tel: , [place], [phone]. tel:[phone] Offic/outpt [facility] Dyspepsia/acid Mar-0 Clement delcid E&m [place] [facility] Peptic Disease 3-201 Provide r: [facility] digitalbox GHAZAL, Kinjal Marvin. Arlin [address] [place] [address], [place] E, 1999 [facility], [place], [place], [place] [id number], [address] [place] [address] Practice tel: is, [place], Int Med, [phone] [id number] [facility] , [place], tel: [phone] tel:[phone] Family History Family Member Type Diagnosis Age [...] free, 3 years or older Fluarix Quad 9968-0589 Flu (split) (3 yrs or older) administered Not e: Invalid documented admin date was . ; Source: Other Pr ovider Pneumo (2 yrs or older)(PPV) administered Not e: Invalid documented admin date was . ; Source: Other Provider Payers Payer name Insurance type Covered constitution party ID Authorization(s ) [employer] Sr 16 [id number] Social History Type Description Quantity Date Captured [...] underlyin g history of gastroparesis made in [place] many years ago, with an associated chronic [...] GI Symptoms or Concerns This is a olrena allison 82-year-old woman who presents in followup [...] history of gastroparesis that was diagnosed in [place] a number of years ago. 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 We discussed that this could certainly increase [...] with her primary physician Dr. López in [place]. 1.) I would a agree with Reglan [...]
== END 2022-05-23 10:48 | disposition home or self-care (01) ==
LOC: AMB 05-26 18:52
PROVIDERS: PCP Family Medicine; Visit Provider Family Medicine
DX: R55 Syncope and collapse (principal); R53.1 Weakness
CPT/HCPCS: A0425; A0427

== ENCOUNTER 2022-05-23 11:18 | Emergency (ER) | payer MEDICARE, OTHER, SELFPAY ==
[2022-05-23 11:20] VITALS: BP 137/65; PULSE 77; RESP 12; TEMP 36.4; O2SAT 95; BMI 24.0
[2022-05-23 11:41] VITALS: O2SAT 96
--- NOTE | 2022-05-23 12:21 | CRLHL7_ITS ---
For Patients: As a result of the Century Cures Act, medical imaging exams and procedure reports are released immediately into your electronic medical record. You may view this report before your referring provider. If you have questions, please contact your health care provider. INDICATION: Syncope. TECHNIQUE: CT head without contrast. COMPARISON: 12/10/2021. FINDINGS: CSF spaces: Within normal limits for age. Brain parenchyma and extra-axial spaces: The junior-white differentiation is normal. No sign of mass, hemorrhage, or midline shift. No extra-axial fluid collection. Skull base and calvarium: The visualized paranasal sinuses and mastoid air cells demonstrate no acute or significant findings. The visualized orbits are grossly unremarkable. No skull fractures. IMPRESSION: Unremarkable noncontrast head CT. Please note that all CT scans at this facility use dose modulation, iterative reconstruction, and/or weight-based dosing when appropriate to reduce radiation dose to as low as reasonably achievable. Dictated by Ambrocio Harrison MD @ 05/23/2022 1:14:26 PM (Electronically Signed)
--- NOTE | 2022-05-23 12:23 | ED.SYNCOPE ---
HPI - Syncope General Chief Complaint: Syncope/Fainted Stated Complaint: Weakness Time Seen by Provider: 05/23/22 11:36 History of Present Illness HPI narrative: This 86-year-old female comes in for evaluation of a syncopal event that occurred just prior to arrival. She states that she was feeling ill last evening and was awake at about 3:00 a.m.. She was feeling some nausea and did have emesis at the bathroom. Soon after this she lost consciousness. She thinks that she hit the back of her head on the wall on the way to the floor. She was able to get up to the toilet where she had diarrhea. She states that she did measure a temperature of 100.5? F. she does not report any pain. She states that she feels a little bit of nausea but otherwise is back to normal. She does have a history of hyponatremia and states that she has not been taking extra salt like she needs to do. She is not on any blood thinners. She is not showing any sign of neurologic deficit. Related Data Home Medications Medication Instructions Recorded Confirmed prednisone 5 mg tablet 5 mg PO QAM 12/10/21 04/30/22 calcium carbonate 300 mg (750 mg) 300 mg PO .prn PRN 01/28/22 04/30/22 chewable tablet (Tums E-X) calcium carbonate 600 mg calcium 600 mg PO QDAY 01/28/22 04/30/22 (1,500 mg) tablet (Calcium) lifitegrast 5 % eye drops in a 1 drp ophthalmic (eye) Q12H PRN 01/28/22 04/30/22 dropperette (Xiidra) multivitamin (Daily Multi-Vitamin 1 tab PO QAM 01/28/22 04/30/22 tablet) sodium chloride 0.65 % nasal spray 1 spray intranasal .prn 01/28/22 04/30/22 aerosol (Saline Nasal) chlorpheniramine maleate 4 mg 2 mg PO Q12H PRN allergy symptoms 02/23/22 04/30/22 tablet (Allergy (chlorpheniramine)) omeprazole 20 mg capsule,delayed 20 mg PO BID 02/23/22 04/30/22 release polyethylene glycol 3350 17 4 g PO ONCE 04/30/22 04/30/22 gram/dose oral powder (Miralax) simethicone 125 mg capsule (Gas 125 mg PO BID-QID PRN 04/30/22 04/30/22 Relief (simethicone)) Previous Rx's Medication Instructions Recorded albuterol sulfate 90 mcg/actuation 2 puff inhalation .Q12 shortness 01/28/22 aerosol inhaler of breath or wheezing #6.7 grams fluticasone propionate 110 2 inh inhalation BID #12 grams 01/28/22 mcg/actuation HFA aerosol inhaler (Flovent HFA) levothyroxine 25 mcg tablet 25 mcg PO DAILY #90 tabs 01/28/22 ondansetron 4 mg disintegrating 4 mg PO BID-TID PRN nausea and 01/28/22 tablet vomiting #30 tabs sertraline 50 mg tablet 50 mg PO QPM #90 tabs 01/28/22 clonidine HCl 0.1 mg tablet 0.05 mg PO TID PRN hypertension 03/03/22 #180 tabs lorazepam 0.5 mg tablet 0.5 mg PO DAILY PRN anxiety #30 04/30/22 tabs Allergies Allergy/AdvReac Type Severity Reaction Status Date / Time codeine Allergy Severe Hallucinati Verified 04/30/22 13:24 ng hydrocodone Allergy Severe confusion/h Verified 04/30/22 13:24 allucinatin g oxycodone Allergy Severe Confusion Verified 04/30/22 13:24 penicillin V Allergy Severe Anaphylaxis Verified 04/30/22 13:24 rosuvastatin Allergy Severe Swelling Verified 04/30/22 13:24 of Lip/Tongue/Throat amlodipine Allergy Intermediate Flushing Verified 04/30/22 13:24 bisacodyl Allergy Intermediate rash/scalp, Verified 04/30/22 13:24 [From Dulcolax (bisacodyl)] redness to eyelid hydromorphone Allergy Intermediate mental Verified 04/30/22 13:24 changes lisinopril Allergy Intermediate itchy Verified 04/30/22 13:24 metformin Allergy Intermediate nausea, Verified 04/30/22 13:24 diarrhea atorvastatin Allergy Mild Rash Verified 04/30/22 13:24 calcitonin Allergy Mild Rash Verified 04/30/22 13:24 loratadine Allergy Mild Rash Verified 04/30/22 13:24 lorazepam Allergy severe Verified 04/30/22 13:24 hallucinations montelukast Allergy Hallucinati Verified 04/30/22 13:24 ng peas Allergy Anaphylaxis Verified 04/30/22 13:24 alendronate Allergy Intermediate Uncoded 04/30/22 13:24 asprin Allergy Mild Rash Uncoded 04/30/22 13:24 petrolatum Allergy Rash Uncoded 04/30/22 13:24 sulfa drugs Allergy Anaphylaxis Uncoded 04/30/22 13:24 Review of Systems Status of ROS: Reports: 10 or more systems reviewed and unremarkable except as noted in History and below Narrative: Constitutional: No weight gain or loss. Eyes: No discharge. No vision changes. HENT: No congestion, no sore throat, no ear pain. Cardiovascular: No chest pain, no palpitations. Respiratory: No shortness of breath, no wheezes, no cough. Gastrointestinal: No abdominal pain, no vomiting, no diarrhea. Genitourinary: No dysuria, no hematuria. Musculoskeletal: Normal range of motion. Skin: No rashes, no pruritis. Neurological: No dizziness, weakness, sensory change, speech change. Endo/Heme/Allergies: No bruising or bleeding. No polydipsia. Pysch: no suicidality, no anxiety, no insomnia. All other systems reviewed and are negative. [facility] Medical History (Updated 05/23/22 @ 15:17 by Malcolm Franks MD) Aspirin allergy Benign gastric polyp Chronic nausea Chronic vertigo Diabetes mellitus Diverticulitis large intestine w/o perforation or abscess w/o bleeding Dysthymia Environmental allergies Epistaxis Functional dyspepsia Health care directive on file History of chronic eczema Hyponatremia Iron deficiency anemia Perforated nasal septum Personal history of gallstones Statin intolerance Temporal headache Tetanus vaccine side effect Throat clearing Thyroid nodule Surgical History (Updated 12/16/21 @ 10:26 by Loren Beyer MD) History of dilation and curettage History of esophageal dilatation (2018) History of revision of total shoulder arthroplasty (2013) History of tonsillectomy and adenoidectomy Family History Mother Depression Osteoarthritis Daughter Depression Sister Hypothyroidism Father No problems noted. Social History Narrative: does not drink alcohol exercises regularly - 2 adult daughters, little/no contact, closest to foster son KAMRON, independent living [facility] non-smoker Smoking Status: Never smoker How often do you have a drink containing alcohol: never AUDIT-C Alcohol total score: 0 Non-prescribed substance use: denies use Little interest or pleasure in doing things: not at all Feeling down, depressed, or hopeless: several days Exam Narrative: Exam Narrative: Constitutional: Well-developed, well-nourished, no acute distress. HEENT: Normocephalic, atraumatic. No sign of injury. No abrasion, hematoma, or laceration. Neck: Normal range of motion. Nontender. Supple. Heart: Regular. No murmurs. Normal rate. Intact distal pulses. Lungs: Clear to auscultation. No chest discomfort. No wheezes, rhonchi, or rales. Abdomen: Normal bowel sounds. Nontender. No rebound tenderness. Genitalia: Deferred. Back: No midline tenderness. Normal range of motion. Extremities: Normal range of motion. No injury. No pedal edema. Skin: Intact. No rash. Warm. No erythema or pallor. Neurologic: No altered sensation. No weakness. Alert and oriented. Psychiatric: No suicidality. No anxiety or depression. No insomnia. Nursing notes and vitals signs are reviewed. Const: Vital Signs, click to edit/add: Vital Signs - 24 hr 05/23/22 11:20 05/23/22 11:41 05/23/22 13:49 Temperature 97.5 F L Pulse Rate [Pulse Oximeter] 77 87 Respiratory Rate 12 14 Blood Pressure [Le ft Upper Arm] 137/65 126/87 Pulse Oximetry 95 96 98 Oxygen Delivery Me thod Room Air Room Air Course Vital Signs Vital signs: Initial Vital Signs Temperature 97.5 F L 05/23/22 11:20 Temperature Source Temporal Artery Scan 05/23/22 11:20 Pulse Rate 77 05/23/22 11:20 Pulse Rhythm 05/23/22 11:20 Respiratory Rate 12 05/23/22 11:20 Blood Pressure 137/65 05/23/22 11:20 Blood Pressure Mean 89 05/23/22 11:20 Blood Pressure Position Supine 05/23/22 11:20 Pulse Oximetry 95 05/23/22 11:20 Oxygen Delivery Method 05/23/22 11:20 Vital Signs Temperature 97.5 F L 05/23/22 11:20 Pulse Rate 77 05/23/22 11:20 Respiratory Rate 12 05/23/22 11:20 Blood Pressure 137/65 05/23/22 11:20 Pulse Oximetry 95 05/23/22 11:20 Oxygen Delivery Method 05/23/22 11:20 Temperature 97.5 F L 05/23/22 11:20 Pulse Rate 87 05/23/22 13:49 Respiratory Rate 14 05/23/22 13:49 Blood Pressure 126/87 05/23/22 13:49 Pulse Oximetry 98 05/23/22 13:49 Oxygen Delivery Method 05/23/22 13:49 MDM - Syncope MDM Narrative Medical decision making narrative: This 86-year-old woman had a syncopal event prior to arrival. She has been feeling some nausea symptoms and did have 1 episode of emesis. She arrives here with normal vital signs and states that she feels back to normal except for little bit of nausea. She did bump her head but had no sign of injury to her head on exam. She is not on any blood thinners. Given her age I did yet do a CT scan of her head which returns with no acute findings. An IV was established where she received a total of a L of normal saline intravenously. Lab results return also with reassuring findings. She was concerned that her sodium can get low but it returned at 1:35 a.m.. She is okay to be discharged home to continue current plans. Lab Data Labs: Lab Results 05/23/22 05/23/22 05/23/22 Range/Units 11:45 12:37 12:37 WBC 7.93 (4.50-11.00) K/uL RBC 4.64 (4.00-5.20) m/uL Hgb 12.2 (12.0-16.0) gm/dL Hct 38.2 (33.0-51.0) % MCV 82 (80-100) fL MCH 26 (26-34) pg MCHC 32 (32-36) gm/dL RDW Coeff of Eric 14.0 (11.5-15.5) % Plt Count 194 (140-440) K/uL Neut % (Auto) 84.5 H (42.0-72.0) % Lymph % (Auto) 4.2 L (20-44) % Lynn % (Auto) 9.1 (0.0-11.0) % Eos % (Auto) 0.9 (0.0-7.0) % Baso % (Auto) 0.4 (0.0-3.0) % Neut # (Auto) 6.70 (1.7-7.0) K/uL Lymph # (Auto) 0.30 L (0.90-2.90) K/uL Lynn # (Auto) 0.70 (0.00-0.90) K/UL Eos # (Auto) 0.07 (0.00-0.50) K/uL Baso # (Auto) 0.03 (0.00-0.30) K/uL Sodium 134 L (135-149) mmol/L Potassium 4.1 (3.6-5.1) mmol/L Chloride 101 (96-114) mmol/L Carbon Dioxide 28 (20-32) mmol/L BUN 21 (7-30) mg/dL Creatinine 0.9 (0.5-1.5) mg/dL Estimated Creat Clear 33.87 Estimated GFR 63 ml/min Glucose 198 H (60-115) mg/dL Calcium 9.1 (8.4-10.6) mg/dL Urine Color (Yellow) Urine Appearance (Clear) Urine pH (5.0-8.5) Ur Specific [place] (1.000-1.030) Urine Protein (Negative) Urine Glucose (UA) (Negative) Urine Ketones (Negative) Urine Blood (Negative) Urine Nitrite (Negative) Urine Bilirubin (Negative) Urine Urobilinogen (0.2-1.0) Ur Leukocyte Esterase (Negative) Urine RBC (0-2) Urine WBC (0-5) Ur Squamous Epith Cells (None-Few) Urine Bacteria (None) Urine Mucus (None) SARS-CoV-2 (PCR) Negative SARS-CoV-2 (Negative) Influenza Type A (PCR) Negative PCR FLU A (Negative) Influenza Type B (PCR) Negative PCR FLU B (Negative) RSV (PCR) Negative PCR RSV (Negative) POC Troponin I (0.01-0.04) ng/ml 05/23/22 05/23/22 Range/Units 12:37 14:22 WBC (4.50-11.00) K/uL RBC (4.00-5.20) m/uL Hgb (12.0-16.0) gm/dL Hct (33.0-51.0) % MCV (80-100) fL MCH (26-34) pg MCHC (32-36) gm/dL RDW Coeff of Eric (11.5-15.5) % Plt Count (140-440) K/uL Neut % (Auto) (42.0-72.0) % Lymph % (Auto) (20-44) % Lynn % (Auto) (0.0-11.0) % Eos % (Auto) (0.0-7.0) % Baso % (Auto) (0.0-3.0) % Neut # (Auto) (1.7-7.0) K/uL Lymph # (Auto) (0.90-2.90) K/uL Lynn # (Auto) (0.00-0.90) K/UL Eos # (Auto) (0.00-0.50) K/uL Baso # (Auto) (0.00-0.30) K/uL Sodium (135-149) mmol/L Potassium (3.6-5.1) mmol/L Chloride (96-114) mmol/L Carbon Dioxide (20-32) mmol/L BUN (7-30) mg/dL Creatinine (0.5-1.5) mg/dL Estimated Creat Clear Estimated GFR ml/min Glucose (60-115) mg/dL Calcium (8.4-10.6) mg/dL Urine Color Yellow (Yellow) Urine Appearance Clear (Clear) Urine pH 8.0 (5.0-8.5) Ur Specific [place] 1.020 (1.000-1.030) Urine Protein Negative (Negative) Urine Glucose (UA) Negative (Negative) Urine Ketones Negative (Negative) Urine Blood Trace-intact A (Negative) Urine Nitrite Negative (Negative) Urine Bilirubin Negative (Negative) Urine Urobilinogen 0.2 (0.2-1.0) Ur Leukocyte Esterase Negative (Negative) Urine RBC 2-5 A (0-2) Urine WBC 0-2 (0-5) Ur Squamous Epith Cells Few (None-Few) Urine Bacteria Few A (None) Urine Mucus Moderate A (None) SARS-CoV-2 (PCR) (Negative) Influenza Type A (PCR) (Negative) Influenza Type B (PCR) (Negative) RSV (PCR) (Negative) POC Troponin I 0.00 L (0.01-0.04) ng/ml Imaging Data CT scan - head: Radiologist's impression: Unremarkable noncontrast head CT. ECG Data Attestation: I personally reviewed and interpreted this ECG as follows: Interpretation: Normal sinus rhythm. Rate is 79 beats per minute. There are no ST or T-wave abnormalities. Discharge Plan Discharge Clinical Impression: Gastroenteritis, Syncope Patient Disposition: Home w/ Parent or Adult Condition: Improved Additional Instructions: Continue current plans. Follow up with MD or return if recurrent or worsening symptoms happen. Prescriptions: No Action polyethylene glycol 3350 [Miralax] 17 gram/dose powder 4 g PO ONCE simethicone [Gas Relief (simethicone)] 125 mg capsule 125 mg PO BID-QID PRN lorazepam 0.5 mg tablet 0.5 mg PO DAILY PRN (Reason: anxiety) Qty: 30 0RF calcium carbonate [Tums E-X] 300 mg (750 mg) tablet,chewable 300 mg PO .prn PRN calcium carbonate [Calcium 600] 600 mg calcium (1,500 mg) tablet 600 mg PO QDAY Xiidra 5 % dropperette 1 drp ophthalmic (eye) Q12H PRN Saline Nasal 0.65 % aerosol,spray 1 spray intranasal .prn multivitamin [Daily Multi-Vitamin] Tablet 1 tab PO QAM sertraline 50 mg tablet 50 mg PO QPM Qty: 90 4RF levothyroxine 25 mcg tablet 25 mcg PO DAILY Qty: 90 4RF fluticasone propionate [Flovent HFA] 110 mcg/actuation HFA aerosol inhaler 2 inh inhalation BID Qty: 12 12RF Rx Instructions: administer with spacer albuterol sulfate 90 mcg/actuation HFA aerosol inhaler 2 puff INHALATION .Q12 Qty: 6.7 12RF ondansetron 4 mg tablet,disintegrating 4 mg PO BID-TID PRN (Reason: nausea and vomiting) Qty: 30 4RF clonidine HCl 0.1 mg tablet 0.05 mg PO TID PRN (Reason: hypertension) Qty: 180 4RF Rx Instructions: additional half tablet in SBP 165 chlorpheniramine maleate [Allergy (chlorpheniramine)] 4 mg tablet 2 mg PO Q12H PRN (Reason: allergy symptoms) Rx Instructions: do not exceed 2 doses per 24 hrs omeprazole 20 mg capsule,delayed release(DR/EC) 20 mg PO BID prednisone 5 mg tablet 5 mg PO QAM Label Comments: TAKE ONE TABLET BY MOUTH EVERY DAY Follow Up/Referrals: Loren Beyer MD [Primary Care Provider] - Stand Alone Forms: [employer] Info Instructions
[2022-05-23 12:27] LABS: PCR FLU A Negative PCR FLU A (Negative); PCR FLU B Negative PCR FLU B (Negative); PCR RSV Negative PCR RSV (Negative)
[2022-05-23 12:32] LABS: SARS PCR* Negative SARS-CoV-2 (Negative)
[2022-05-23] MEDS: 0.9 % SODIUM CHLORIDE 500 ML 500 ML IV (12:39)
[2022-05-23] MEDS: ONDANSETRON 2 MG/ML inj 4 MG IVP (12:40)
[2022-05-23 12:45] LABS: Basophils Absolute Auto 0.03 K/uL (0.00-0.30); Basophils Percent Auto 0.4 % (0.0-3.0); Eosinophils Absolute Auto 0.07 K/uL (0.00-0.50); Eosinophils Percent Auto 0.9 % (0.0-7.0); Hematocrit 38.2 % (33.0-51.0); Hemoglobin* 12.2 gm/dL (12.0-16.0); Immature Granulocytes Abs Auto 0.07 K/uL (0.00-0.30); Immature Granulocytes Pct Auto 0.9 %; Lymphocytes Percent Auto 4.2 % (20-44); Mean Corpuscular HGB Conc 32 gm/dL (32-36); Mean Corpuscular Hemoglobin 26 pg (26-34); Mean Corpuscular Volume 82 fL (80-100); Monocytes Percent Auto 9.1 % (0.0-11.0); Neutrophils Percent Auto 84.5 % (42.0-72.0); Platelet Count* 194 K/uL (140-440); Red Blood Count 4.64 m/uL (4.00-5.20); White Blood Count* 7.93 K/uL (4.50-11.00)
[2022-05-23 12:49] LABS: Slide Review Reflex No
[2022-05-23 12:59] LABS: Chloride* 101 mmol/L (96-114); Sodium* 134 mmol/L (135-149)
[2022-05-23 13:00] LABS: Potassium* 4.1 mmol/L (3.6-5.1)
[2022-05-23 13:02] LABS: Carbon Dioxide* 28 mmol/L (20-32); Creatinine* 0.9 mg/dL (0.5-1.5); Est. Creatinine Clearance* 33.87; Estimated Glomerular Filt Rate 63 ml/min
[2022-05-23 13:03] LABS: Blood Urea Nitrogen* 21 mg/dL (7-30); Calcium* 9.1 mg/dL (8.4-10.6); Glucose* 198 mg/dL (60-115)
--- OUTSIDE RECORDS SUMMARY | 2022-05-23 13:13 | XMS_ITS | Continuity of Care Document ---
:1935 Author Organization [facility] Address [address] [address] [place] [address] Phone Care Team Providers Name Role Phone [...] the type is not supported. Please contact [facility] practice for further details. Medications Medication [...] Ugi Endo; W/bx 1/mx Offic/outpt E&m Estab [facility] [place] 2 Offic/outpt E&m Estab [facility] 2 Offic/outpt E&m Estab [facility] 2 Offic/outpt E&m Estab [facility] [place] 2 Offic/outpt E&m Estab [facility] Offic/outpt E&m Est[facility] Offic/outpt E&m Estab [facility] Offic/outpt E&m [facility] Advance Directives Directive Yes / No Effective Date File Name No Information Encounters Encounter Practice Location Reason(s) Diagnoses Date Provider Provide rs Description For Visit Copied on Encounter [facility] No Information Link Digestive [facility] 0-201 [facility], Endoscopy 8 9175 [facility] [address], [address] [facility] [place], [place], [place], 500, [id number], [place], [place], tel:+ [phone] , [place]. tel:[phone] Offic/outpt [place] [facility] GI Gastroesophageal Edelmira FALK Referring E&m Estab Digestive Symptoms reflux disease Trudy Driver ovider: [facility], or without [address] Concerns esophagitisGastro [facility] hanna [address], (chief paresis[address]ential [address] , 200 0 [place] complaint) (primary) NE, [address], [place], [place], hypertension 500, [place] [id number], [place] , [place], [place], [address]. tel:+ [phone] tel:[phone] , [place]. [id number] tel: [phone] [facility] No Information Mikie FALK Referr ing Digestive [place]. Provider: Health PA, [facility] 8 [address] [facility] [address], Riaz FALK, [address] [place], [address], [place], [place], 500, [place] [id number], [place] , [place], [place], [address]. tel:+ [phone] tel:[phone] , [place]. [id number] tel: [phone] Offic/outpt [facility] GI Dysphagia, Edelmira FALK Re ferring E&m Estab Digestive Symptoms unspecified Trudy Provi boo: Mod-hi 2 Health PA, or typeGastroesophag [address] f[address] Box Concerns eal reflux [place] Self. [address], (chief disease, [facility] complaint) esophagitis NE, [place], [place], presence not 500, [id number], specifiedFull [place] incontinence of [place], [place], tel: feces [phone] , [place]. tel: [phone] Offic/outpt [place] [facility] GI Gastroesophageal Edelmira FALK Referring E&m Estab Digestive Symptoms reflux disease, Trudy fallder: [facility] 2 [facility] PA, or esophagitis 8 . [address] Concerns presence not [facility] [address], (chief [facility] Riaz FALK, 20 [facility] complaint) a, unspecified NE, [address], [place], [place], typeEssential 500, [place] [id number], (primary) [place] , [place], [place], [address]. tel: [phone] tel:[phone] , [place]. [id number] tel: [phone] Offic/outpt [facility] GI GastroparesisChro Jul- Louise martinez Referring E&m Estab Digestive Symptoms raul 0-201 Provider: Mod-hi 2 Health PA, or constipationHeart 6 Jany R eferral PO Box Concerns burnEssential E. [address] Self. [address], (chief (primary) [facility] complaint) hypertension Street s, [place], [place], [place] [id number], 500, [place] tel: is, [place], [phone] , [place]. tel: [phone] Offic/outpt [facility] GI Irritable Colon Jaylen FALK Referring E&m Estab Digestive Clinic Symptoms 7-201 Corey. Provider: Mod-hi 2 Health PA, or 5 [address] Concerns [place] Self. [address], (chief [facility] complaint) NE, [place], [place], 500, [id number], [place], [place], tel: [phone] , [place]. tel: [phone] Offic/outpt [facility] GI GastroparesisDiet Marianna geller Referring E&m Estab [facility] Clinic Symptoms wilner 0-201 Provider: [facility], or Surveil/counselEl 4 Yon. Re ferral PO Box Concerns ev Bl Pres W/o 3001 Self. [address], (chief Hypertn [facility] complaint) Street s, [place], Additional NE, [place] [id number], [place] 500, [place] (chief [facility] tel:+ complaint) is, [place], [phone] , [place]. tel: [phone] Offic/outpt [facility] Pain Mar-2 Clement matos E&m [facility] Digestive Clinic Generalized 1-201 Provider : [facility] GHAZAL, Kinjal Marvin. Arlin [address] Maribel FALK [address], Cardinal E, 1999 [facility], [place], [place], [facility] [address] [id number], [facility], [facility] Practice tel: is, [place], Int Med, [id number] [id number] [facility]. , [place], tel: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 Digestive Clinic Peptic 6-201 Ashley. Provider: [facility] GHAZAL, DiseaseConstipati 4 3001 Juana chapman PO [address] on Unspecified [facility] [address], Rattan E, 1999 [place], [place], [address] [place] [address], [facility], [place], Practice tel: [phone] Int Med, [id number] , [facility] tel: , [place], [phone] [address]. tel:[phone] Offic/outpt [facility] Dyspepsia/acid Mar-[address] E&m [facility] Digestive Clinic Peptic Disease 3-201 Provide r: [facility] [employer] GHAZAL, Kinjal Marvin. Arlin [address] Mar[place]ALK [address], Cardinal E, 1999 [facility], [place], [place], [place] [id number], [address] [place] [address] Practice tel: is, [place], Int Med, [phone] [id number] [facility] , [place], tel: [phone] tel:[phone] Family History Family Member Type Diagnosis Age [...] free, 3 years or older Fluarix Quad 1338-2643 Flu (split) (3 yrs or older) administered Not e: Invalid documented admin date was . ; Source: Other Pr ovider Pneumo (2 yrs or older)(PPV) administered Not e: Invalid documented admin date was . ; Source: Other Provider Payers Payer name Insurance type Covered green party ID Authorization(s ) [employer] Sr 16 [id number] Social History Type Description Quantity Date Captured [...] underlyin g history of gastroparesis made in [place] many years ago, with an associated chronic [...] GI Symptoms or Concerns This is a lorean allison 82-year-old woman who presents in followup [...] history of gastroparesis that was diagnosed in [place] a number of years ago. However, she [...] endoscopy Rel ated to Dysphagia, unspecified at 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 We discussed that this could certainly increase [...] with her primary physician Dr. López in [place]. 1.) I would a agree with Reglan [...]
--- NOTE | 2022-05-23 13:48 | ED.NURSE ---
Meal provided at patient's request.
[2022-05-23 13:49] VITALS: BP 126/87; PULSE 87; RESP 14; O2SAT 98
[2022-05-23 14:37] LABS: Appearance Urine Clear (Clear); Bilirubin Urine Negative (Negative); Blood Urine Trace-intact (Negative); Color Urine Yellow (Yellow); Glucose Urine Negative (Negative); Ketones Urine Negative (Negative); Leukocyte Esterase Urine Negative (Negative); Nitrite Urine Negative (Negative); Protein Urine Negative (Negative); Urobilinogen Urine 0.2 (0.2-1.0)
[2022-05-23 14:53] LABS: Bacteria Urine Few; Squamous Epithelial Cell Urine Few (None-Few); WBC Urine 0-2 (0-5)
[2022-05-23 14:54] LABS: Mucus Urine Moderate
== END 2022-05-23 16:08 | disposition home or self-care (01) ==
PROVIDERS: Emergency Provider Emergency Medicine Emergency Medical Services; PCP Family Medicine
DX: R55 Syncope and collapse (principal); K52.9 Noninfective gastroenteritis and colitis, unspecified
CPT/HCPCS: 36415; 70450; 80048; 81001; 84484; 85025; 87086; 87502; 87634; 87635; 93005; 94761; 96374; 99284; 99285; J2405; J7120

== ENCOUNTER 2022-07-19 09:43 | Outpatient (CLI) | payer MEDICARE, OTHER, SELFPAY | END 2022-07-19 09:44 | disposition home or self-care (01) | LOC: NFLDREF 07-23 10:03 | PROVIDERS: PCP Family Medicine; Referring Provider Family Medicine; Visit Provider Family Medicine | DX: I10 Essential (primary) hypertension (principal); E11.9 Type 2 diabetes mellitus without complications; D64.9 Anemia, unspecified | CPT/HCPCS: 80053 ==

== ENCOUNTER 2022-11-08 07:52 | Outpatient (CLI) | payer MEDICARE, OTHER, SELFPAY | END 2022-11-08 07:53 | disposition home or self-care (01) | LOC: NFLDREF 11:22 | PROVIDERS: PCP Family Medicine; Referring Provider Family Medicine; Visit Provider Family Medicine | DX: D64.9 Anemia, unspecified (principal); E03.9 Hypothyroidism, unspecified; E11.9 Type 2 diabetes mellitus without complications; I10 Essential (primary) hypertension | CPT/HCPCS: 80053; 82043; 82570; 82728; 84443 ==

== ENCOUNTER 2022-11-09 13:11 | Outpatient (CLI) | payer MEDICARE, OTHER, SELFPAY ==
--- OUTSIDE RECORDS SUMMARY | 2022-11-16 09:49 | XMS_ITS | Continuity of Care Document ---
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 8 Ugi Endo; W/insrt Guide Wire Ugi Endo; W/bx 1/mx Offic/outpt E&m Estab [facility] 2 18 Offic/outpt E&m Estab [facility] 2 18 Offic/outpt E&m Estab [facility] 2 16 Offic/outpt E&m Estab [facility] 2 15 Offic/outpt [facility] Offic/outpt [facility] Offic/outpt [facility] Offic/outpt E&m [facility] Advance Directives Directive Yes / No Effective Date File Name No Information Encounters Encounter Description Practice Location Reason(s) For Visit Diagnoses Date Provider Providers Copied on Encounter [facility] DAYNA HARMAN [address] [address], [place], [id number], [place] tel:[phone] [facility] No Information 3 Alfred Crook. [address] [facility], [facility] [address], [facility] [place], [id number] , [place]. [phone] [facility], [address] [address], [place], [place], [address], [place] tel:[phone] [facility] No Information 3 Alfred Crook. [address] [facility], [facility] [address], [facility] [place], [id number] , [place]. [phone] Offic/outpt E&m Estab Low-mod [facility], [address] [address], [place], [place], [address], [place] tel:[phone] [facility] GI Symptoms or Concerns (chief complaint) Gastroesophageal reflux disease without esophagitisGastr oparesisEssentia l (primary) hypertension 8 Edelmira Yates . [address] [facility], [facility] [address], [facility] [place], [address] , [place]. [phone] Referring Provider: Loren Beyer MD, [address] [place], [address]. tel:[phone] [facility], [address] [address], [facility] [place], [address], [place] tel:[phone] [facility] No Information 8 Mikie Whitman. [address] [facility], [facility] [address], [facility], [id number] , [place]. tel:[phone] Referring Provider: Loren Beyer MD, [address] [place], [address]. tel:[phone] Offic/outpt E&m Estab Mod-hi 2 [facility], [address] [address], [facility] [place], [address], [place] tel:[phone] [facility] GI Symptoms or Concerns (chief complaint) Dysphagia, unspecified typeGastroesopha geal reflux disease, esophagitis presence not specifiedFull incontinence of feces 8 Edelmira Yates . [address] [facility], [address], [facility], [address] , [place]. tel: [phone] Referring Provider: Referral Self. Offic/outpt E&m Estab Mod-hi 2 [facility], [address] [address], [place], [address], [place] tel:[phone] [facility] GI Symptoms or Concerns (chief complaint) Gastroesophageal reflux disease, esophagitis presence not specifiedDysphag ia, unspecified typeEssential (primary) hypertension 8 Edelmira Yates . [address] [facility], [facility] [address], [facility] [place], [address] , [place]. tel: [phone] Referring Provider: Loren Beyer MD, [address] [place], [address]. tel:[phone] Offic/outpt E&m Estab Mod-hi 2 [facility], [address] [address], [place], [address], [place] tel:[phone] [facility] GI Symptoms or Concerns (chief complaint) GastroparesisChr onic constipationHear tburnEssential (primary) hypertension 6 Abbey Salgado [address] [facility], [address], [facility], [address] , [place]. tel: [phone] Referring Provider: Referral Self. Offic/outpt E&m Estab Mod-hi 2 [facility], [address] [address], [place], [address], [place] tel:[phone] [facility] GI Symptoms or Concerns (chief complaint) Irritable Colon 5 Jaylen Nicole. [address] [facility], [address], [place], [address] , [place]. tel: [phone] Referring Provider: Referral Self. Offic/outpt E&m Estab Low-mod [facility], [address] [address], [place], [address], [place] tel:[phone] [facility] GI Symptoms or Concerns (chief complaint) Additional Narrative (chief complaint) GastroparesisDie tary Surveil/counselE lev Bl Pres W/o Hypertn 4 Clement Marvin. [address] [facility], [address], [facility], [id number] , [place]. [phone] Referring Provider: Referral Self. Offic/outpt E&m Estab Low-mod [facility], [address] [address], [place], [address], [place] tel:[phone] [facility] Abd Pain Generalized Jul- 4 Clement Marvin. [address] [place] [address], [facility] [address], [facility], [address] , [place]. tel:[phone] Referring Provider: Arlin Ayala, [address] [place], [address]. tel:[phone] Offic/outpt E&m Estab Low-mod [facility], [address] [address], [place], [address], [place] tel:[phone] [facility] Dyspepsia/acid Peptic DiseaseConstipat ion Unspecified 4 Ethan Ramirez. [address] [facility], [address], [facility], [address] , [place]. [phone] Referring Provider: Arlin Ayala, [address] [facility], [place], [address]. tel:[phone] Offic/outpt E&m [facility], [address] [address], [place], [address], [place] tel:[phone] [facility] Dyspepsia/acid Peptic Disease 4 Cleemnt Marvin. [address] [facility], [address], [facility], [address] , [place]. [phone] Referring Provider: Arlin Ayala, [address] [place], [address]. tel:[phone] Family History Family Member Type Diagnosis Age [...] ional interface ; Source: Other Registry Pneumovax 23 [...] ; Source: Other Registry Pneumococcal conjugate PCV 13 administere d Source: Other Provider Influenza virus [...] bi-directional interface ; Source: Other Registry Novel [id number]-[id number], all formulations administered Note: [facility] bi-direct ional interface ; [...] influenza virus vaccine, unspecified formulation administered Note: [facility] bi-di rectional interface ; Source: Other Registry influenza virus vaccine, unspecified formulation administered Note: [facility] bi-di rectional interface ; Source: Other Registry Payers Payer name Insurance type Covered alliance party ID Authoriza tion(s) [employer] 16 [id number] Social History Type Description Quantity Date Captured [...] an underlying history of gastroparesis made in [place] many years ago, with an associated chronic [...] an underlying diagnosis of gastroparesis made in [place] many years ago. She has a chronically [...] as a diagnosis of gastroparesis made in [place] many years ago. She has a chronically [...] history of gastroparesis that was diagnosed in [place] a number of years ago. 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 We discussed that this could certainly [...] with her primary physician Dr. López in [place]. Related to Irritable Colon 1.) I would [...]
== END 2022-11-09 13:12 | disposition home or self-care (01) ==
LOC: AMB 11-16 09:32
PROVIDERS: PCP Family Medicine; Visit Provider Family Medicine
DX: S69.91XA Unspecified injury of right wrist, hand and finger(s), initial encounter (principal); W01.0XXA Fall on same level from slipping, tripping and stumbling without subsequent striking against object, initial encounter; Y92.030 Kitchen in apartment as the place of occurrence of the external cause
CPT/HCPCS: A0425; A0429

== ENCOUNTER 2022-11-09 13:32 | Emergency (ER) | payer MEDICARE, OTHER, SELFPAY ==
[2022-11-09 13:38] VITALS: BP 231/110; PULSE 86; RESP 18; TEMP 36.7; O2SAT 98; BMI 23.6
--- NOTE | 2022-11-09 13:48 | ED.GENADULT ---
HPI - General Adult General Time Seen by Provider: 13:48 Date Seen: 11/09/22 Chief complaint: Extremity Pain/Injury, Upper Stated complaint: Wrist injury Time Seen by Provider: 11/09/22 13:48 Source: patient Mode of arrival: ambulatory Limitations: no limitations History of Present Illness HPI narrative: Ally is a 87-year-old female past medical history includes SIADH, asthma, hypothyroidism, hypertension, gastroparesis, GERD, anxiety depression, diabetes mellitus type 2 not on blood thinner presents emergency department via EMS with a wrist injury. Patient states just prior to arrival she was at home, she was doing something then turned to her right tripping on a like to a rocking chair, she tried to catch herself but fell to her right side with her arm outstretched, when she fell down her head was rested on her arm, she denies any LOC or head injury. She had pain in her right wrist, shoulder, sustained a small skin tear to her elbow. Patient is able to move her elbow, shoulder pain is improved however she has developed significant swelling and bruising to her wrist area. She denies any weakness or numbness. EMS did not give her any pain meds prior to arrival. No other injury noted. Related Data Home Medications Medication Instructions Recorded Confirmed calcium carbonate 300 mg (750 mg) 300 mg PO .prn PRN 01/28/22 10/12/22 chewable tablet (Tums E-X) calcium carbonate 600 mg calcium 600 mg PO QDAY 01/28/22 10/12/22 (1,500 mg) tablet (Calcium) multivitamin (Daily Multi-Vitamin 1 tab PO QAM 01/28/22 10/12/22 tablet) sodium chloride 0.65 % nasal spray 1 spray intranasal .prn 01/28/22 10/12/22 aerosol (Saline Nasal) chlorpheniramine maleate 4 mg 2 mg PO Q12H PRN allergy symptoms 02/23/22 10/12/22 tablet (Allergy (chlorpheniramine)) polyethylene glycol 3350 17 4 g PO ONCE 04/30/22 10/12/22 gram/dose oral powder (Miralax) simethicone 125 mg capsule (Gas 125 mg PO BID-QID PRN 04/30/22 10/12/22 Relief (simethicone)) lactase 9,000 unit chewable tablet 9,000 unit PO ONCE 07/22/22 10/12/22 (Lactaid Fast Act) omeprazole 20 mg capsule,delayed 40 mg PO BID 10/05/22 10/12/22 release Previous Rx's Medication Instructions Recorded albuterol sulfate 90 mcg/actuation 2 puff inhalation .Q12 shortness 01/28/22 aerosol inhaler of breath or wheezing #6.7 grams fluticasone propionate 110 2 inh inhalation BID #12 grams 01/28/22 mcg/actuation HFA aerosol inhaler (Flovent HFA) levothyroxine 25 mcg tablet 25 mcg PO DAILY #90 tabs 01/28/22 ondansetron 4 mg disintegrating 4 mg PO BID-TID PRN nausea and 01/28/22 tablet vomiting #30 tabs sertraline 50 mg tablet 50 mg PO QPM #90 tabs 01/28/22 clonidine HCl 0.1 mg tablet 0.05 mg (1/2 x 0.1 mg) PO TID PRN 03/03/22 hypertension #180 tabs lorazepam 0.5 mg tablet 0.5 mg PO DAILY PRN anxiety #30 04/30/22 tabs prednisone 5 mg tablet 5 mg PO QAM #90 tabs 09/21/22 losartan 25 mg tablet 25 mg PO DAILY htn #90 tabs 10/12/22 Allergies Allergy/AdvReac Type Severity Reaction Status Date / Time codeine Allergy Severe Hallucinati Verified 10/12/22 13:22 ng hydrocodone Allergy Severe confusion/h Verified 10/12/22 13:22 allucinatin g oxycodone Allergy Severe Confusion Verified 10/12/22 13:22 penicillin V Allergy Severe Anaphylaxis Verified 10/12/22 13:22 rosuvastatin Allergy Severe Swelling Verified 10/12/22 13:22 of Lip/Tongue/Throat amlodipine Allergy Intermediate Flushing Verified 10/12/22 13:22 bisacodyl Allergy Intermediate rash/scalp, Verified 10/12/22 13:22 [From Dulcolax (bisacodyl)] redness to eyelid hydromorphone Allergy Intermediate mental Verified 10/12/22 13:22 changes lisinopril Allergy Intermediate itchy Verified 10/12/22 13:22 metformin Allergy Intermediate nausea, Verified 10/12/22 13:22 diarrhea atorvastatin Allergy Mild Rash Verified 10/12/22 13:22 calcitonin Allergy Mild Rash Verified 10/12/22 13:22 loratadine Allergy Mild Rash Verified 10/12/22 13:22 lorazepam Allergy severe Verified 10/12/22 13:22 hallucinations montelukast Allergy Hallucinati Verified 10/12/22 13:22 ng peas Allergy Anaphylaxis Verified 10/12/22 13:22 alendronate Allergy Intermediate Uncoded 10/12/22 13:22 asprin Allergy Mild Rash Uncoded 10/12/22 13:22 petrolatum Allergy Rash Uncoded 10/12/22 13:22 sulfa drugs Allergy Anaphylaxis Uncoded 10/12/22 13:22 Review of Systems Status of ROS: Reports: 10 or more systems reviewed and unremarkable except as noted in History and below PFSH PFSH Medical History Dysthymia ?F34.1 - Dysthymic disorder (ICD-10) Personal history of gallstones ?Z87.19 - Personal history of other diseases of the digestive system (ICD-10) Iron deficiency anemia ?D50.9 - Iron deficiency anemia, unspecified (ICD-10) Functional dyspepsia ?K30 - Functional dyspepsia (ICD-10) Diverticulitis large intestine w/o perforation or abscess w/o bleeding ?K57.32 - Diverticulitis of large intestine without perforation or abscess without bleeding (ICD-10) Chronic nausea ?R11.0 - Nausea (ICD-10) Thyroid nodule ?E04.1 - Nontoxic single thyroid nodule (ICD-10) Chronic vertigo ?R42 - Dizziness and giddiness (ICD-10) Benign gastric polyp ?K31.7 - Polyp of stomach and duodenum (ICD-10) Diabetes mellitus ?E11.9 - Type 2 diabetes mellitus without complications (ICD-10) Epistaxis ?R04.0 - Epistaxis (ICD-10) Temporal headache ?R51.9 - Headache, unspecified (ICD-10) Throat clearing ?R09.89 - Other specified symptoms and signs involving the circulatory and respiratory systems (ICD-10) Tetanus vaccine side effect ?T50.A95A - Adverse effect of other bacterial vaccines, initial encounter (ICD-10) Statin intolerance ?Z78.9 - Other specified health status (ICD-10) Perforated nasal septum ?J34.89 - Other specified disorders of nose and nasal sinuses (ICD-10) History of chronic eczema ?Z87.2 - Personal history of diseases of the skin and subcutaneous tissue (ICD-10) Environmental allergies ?Z91.09 - Other allergy status, other than to drugs and biological substances (ICD-10) Aspirin allergy ?Z88.8 - Allergy status to other drugs, medicaments and biological substances (ICD-10) Hyponatremia ?E87.1 - Hypo-osmolality and hyponatremia (ICD-10) Health care directive on file ?Z78.9 - Other specified health status (ICD-10) Surgical History History of esophageal dilatation (2018) ?Z98.890 - Other specified postprocedural states (ICD-10) History of tonsillectomy and adenoidectomy ?Z90.89 - Acquired absence of other organs (ICD-10) History of dilation and curettage ?Z98.890 - Other specified postprocedural states (ICD-10) History of revision of total shoulder arthroplasty (2012) ?Z96.619 - Presence of unspecified artificial shoulder joint (ICD-10) Family History Mother Depression Osteoarthritis Daughter Depression Sister Hypothyroidism Father No problems noted. Social History Narrative: does not drink alcohol exercises regularly - 2 adult daughters, little/no contact, closest to foster son KAMRON, independent living [facility] non-smoker Smoking Status: Never smoker Do you use any of these nicotine containing products: None How often do you have a drink containing alcohol: never How often do you have six or more drinks on one occasion: Never AUDIT-C Alcohol total score: 0 Non-prescribed substance use: denies use Little interest or pleasure in doing things: not at all Feeling down, depressed, or hopeless: several days service: No Exam Narrative: Exam Narrative: General: Mild distress sitting comfortably HEENT: Head is atraumatic, pupils equal round reactive to light, the ocular muscles intact Neck: Nontender to palpation to cervical spine Lungs: Clear to auscultation bilaterally Heart: Normal sinus rhythm S1-S2 Abdomen: Soft nontender Extremities: Right upper extremity, distal radius and ulna ecchymosis and swelling present, CMS intact, 3 cm skin tear to the elbow. Nontender to palpation the humerus proximal and distal. Neuro: Alert awake and oriented x3 Const: Vital Signs, click to edit/add: Vital Signs - 24 hr 11/09/22 13:38 11/09/22 15:22 Temperature 98.1 F 97.8 F Pulse Rate [Right Pulse Oximeter] 86 72 Respiratory Rate 18 20 Blood Pressure [Le ft Upper Arm] 221/34 H Blood Pressure [Ri ght Upper Arm] 231/110 H Pulse Oximetry 98 97 Oxygen Delivery Me thod Room Air Room Air Course Course Hospital Course: 1:45 PM: AIDET performed. Vitals are normal at this time, mildly elevated blood pressure will continue to monitor, workup will include IV peripheral, XR right wrist three views, Valium 2 mg IV for pain and muscle spasticity. Differential diagnosis include but not limited to fracture, fracture dislocation, sprain, contusion, dislocation, vascular damage nerve damage ligament damage tendon damage as well as other etiologies. Reevaluation(s) Reevaluation #1: Findings/Impression: Bones: There is diffuse osteopenia with a transverse distal radial metaphyseal fracture. This has slight dorsal angulation with minimal impaction at the dorsal aspect of the fracture plane. Likely nondisplaced ulnar styloid fracture. Joint spaces: No dislocation. Small osteophytes at the 1st carpometacarpal joint. Soft tissues: Soft tissue swelling right wrist. to place patient in a sugar-tong splint, please see procedure note, should follow-up with orthopedics as scheduled, return precautions given. Vital Signs Vital signs: Initial Vital Signs Temperature 98.1 F 11/09/22 13:38 Temperature Source Temporal Artery Scan 11/09/22 13:38 Pulse Rate 86 11/09/22 13:38 Respiratory Rate 18 11/09/22 13:38 Blood Pressure 231/110 H 11/09/22 13:38 Blood Pressure Mean 150 H 11/09/22 13:38 Blood Pressure Position Sitting 11/09/22 13:38 Pulse Oximetry 98 11/09/22 13:38 Oxygen Delivery Method Room Air 11/09/22 13:38 Vital Signs Temperature 98.1 F 11/09/22 13:38 Pulse Rate 86 11/09/22 13:38 Respiratory Rate 18 11/09/22 13:38 Blood Pressure 231/110 H 11/09/22 13:38 Pulse Oximetry 98 11/09/22 13:38 Oxygen Delivery Method Room Air 11/09/22 13:38 Temperature 97.8 F 11/09/22 15:22 Pulse Rate 72 11/09/22 15:22 Respiratory Rate 20 11/09/22 15:22 Blood Pressure 221/34 H 11/09/22 15:22 Pulse Oximetry 97 11/09/22 15:22 Oxygen Delivery Method Room Air 11/09/22 15:22 Discharge Plan Discharge Clinical Impression: Fracture of ulnar styloid, Fracture of distal end of radius Patient Disposition: Home, Self-Care Condition: Improved Instructions: Wrist Fracture in Adults (ED) Additional Instructions: Patient to take Tylenol 1 g every 4-6 hours as needed for pain, follow-up with orthopedics as scheduled, return precautions given. Follow up appointment is scheduled at the [facility] on 11/19 with a 10:50am appointment time. Please arrive at 10:40am to check in. If you have any questions or need to reschedule, please call [phone]. [facility] [address] [place] [address] Activity Level: No Restrictions Prescriptions: No Action polyethylene glycol 3350 [Miralax] 17 gram/dose powder 4 g PO ONCE simethicone [Gas Relief (simethicone)] 125 mg capsule 125 mg PO BID-QID PRN lorazepam 0.5 mg tablet 0.5 mg PO DAILY PRN (Reason: anxiety) Qty: 30 0RF losartan 25 mg tablet 25 mg PO DAILY Qty: 90 0RF calcium carbonate [Tums E-X] 300 mg (750 mg) tablet,chewable 300 mg PO .prn PRN calcium carbonate [Calcium 600] 600 mg calcium (1,500 mg) tablet 600 mg PO QDAY Saline Nasal 0.65 % aerosol,spray 1 spray intranasal .prn multivitamin [Daily Multi-Vitamin] Tablet 1 tab PO QAM sertraline 50 mg tablet 50 mg PO QPM Qty: 90 4RF levothyroxine 25 mcg tablet 25 mcg PO DAILY Qty: 90 4RF fluticasone propionate [Flovent HFA] 110 mcg/actuation HFA aerosol inhaler 2 inh inhalation BID Qty: 12 12RF Rx Instructions: administer with spacer albuterol sulfate 90 mcg/actuation HFA aerosol inhaler 2 puff INHALATION .Q12 Qty: 6.7 12RF ondansetron 4 mg tablet,disintegrating 4 mg PO BID-TID PRN (Reason: nausea and vomiting) Qty: 30 4RF clonidine HCl 0.1 mg tablet 0.05 mg PO TID PRN (Reason: hypertension) Qty: 180 4RF Rx Instructions: additional half tablet in SBP 165 Lactaid Fast Act 9,000 unit tablet,chewable 9,000 unit PO ONCE Rx Instructions: administer with meals and/or snacks prednisone 5 mg tablet 5 mg PO QAM Qty: 90 3RF chlorpheniramine maleate [Allergy (chlorpheniramine)] 4 mg tablet 2 mg PO Q12H PRN (Reason: allergy symptoms) Rx Instructions: do not exceed 2 doses per 24 hrs omeprazole 20 mg capsule,delayed release(DR/EC) 40 mg PO BID Follow Up/Referrals: Loren Beyer MD [Primary Care Provider] - Stand Alone Forms: [employer] Info Instructions
--- NOTE | 2022-11-09 14:01 | CRLHL7_ITS ---
For Patients: As a result of the Century Cures Act, medical imaging exams and procedure reports are released immediately into your electronic medical record. You may view this report before your referring provider. If you have questions, please contact your health care provider. Indication: Fall Technique: Three views Comparison: None Findings/Impression: Bones: There is diffuse osteopenia with a transverse distal radial metaphyseal fracture. This has slight dorsal angulation with minimal impaction at the dorsal aspect of the fracture plane. Likely nondisplaced ulnar styloid fracture. Joint spaces: No dislocation. Small osteophytes at the 1st carpometacarpal joint. Soft tissues: Soft tissue swelling right wrist. Dictated by Samuel Hallman MD @ 11/09/2022 3:30:04 PM (Electronically Signed)
--- NOTE | 2022-11-09 14:01 | ED.NURSE ---
pt has skin tear on right elbow, approx 3 cm long.
--- NOTE | 2022-11-09 14:19 | ED.NURSE ---
pt got up to use the bedside commode, 2 people to help her while she stabilized her arm. Voided large amount
--- NOTE | 2022-11-09 14:47 | ED.NURSE ---
nurse aide bandaged and cleaned pt's right elbow tear. Pt is also complaining of dull right rib pain, no pain on touch or pressure though.
--- NOTE | 2022-11-09 15:01 | ED.NURSE ---
pt ambulated up to the commode, 1 nurse helping her up. voided large amount
--- NOTE | 2022-11-09 15:04 | ED.NURSE ---
upon movement of right arm pt reports pain at 4, when her arm is at rest she reports the pain at 1
[2022-11-09] MEDS: ACETAMINOPHEN 500 MG TABLET 1000 MG PO (15:17)
[2022-11-09 15:22] VITALS: BP 221/34; PULSE 72; RESP 20; TEMP 36.6; O2SAT 97
--- NOTE | 2022-11-09 16:36 | ED.NURSE ---
pt sent home with prescription for arm sling.
== END 2022-11-09 16:36 | disposition home or self-care (01) ==
PROVIDERS: Emergency Provider Student in an Organized Health Care Education/Training Program; PCP Family Medicine
DX: S52.611A Displaced fracture of right ulna styloid process, initial encounter for closed fracture (principal); S52.501A Unspecified fracture of the lower end of right radius, initial encounter for closed fracture; W01.0XXA Fall on same level from slipping, tripping and stumbling without subsequent striking against object, initial encounter
CPT/HCPCS: 29125; 73110; 99283; 99284; A9270

== ENCOUNTER 2022-11-25 10:16 | Outpatient (CLI) | payer MEDICARE, OTHER, SELFPAY | END 2022-11-25 10:17 | disposition home or self-care (01) | LOC: NFLDREF 11-26 14:42 | PROVIDERS: PCP Family Medicine; Referring Provider Family Medicine; Visit Provider Family Medicine | DX: I10 Essential (primary) hypertension (principal) | CPT/HCPCS: 80048 ==

== ENCOUNTER 2023-01-04 01:51 | Outpatient (CLI) | payer MEDICARE, OTHER, SELFPAY | END 2023-01-04 01:52 | disposition home or self-care (01) | LOC: AMB 01-08 17:42 | PROVIDERS: PCP Family Medicine; Visit Provider Family Medicine | DX: R07.89 Other chest pain (principal) | CPT/HCPCS: A0425; A0427 ==

== ENCOUNTER 2023-01-04 02:23 | Emergency (ER) | payer MEDICARE, OTHER, SELFPAY ==
[2023-01-04] VITALS (7 sets, daily range): BP systolic 161–197; BP diastolic 95–102; PULSE 79–89; RESP 16–20; TEMP 36.4; O2SAT 94–98
[2023-01-04] MEDS: NITROGLYCERIN 0.4 MG TAB.SUBL SUBLINGUAL (02:33)
[2023-01-04] MEDS: TICAGRELOR 90 MG TABLET 180 MG PO (02:55)
[2023-01-04] MEDS: HEPARIN 5,000 UNIT/0.5 ML INJ 4000 UNIT IVP (02:55)
[2023-01-04 03:00] LABS: Basophils Absolute Auto 0.05 K/uL (0.00-0.30); Basophils Percent Auto 0.5 % (0.0-3.0); Eosinophils Absolute Auto 0.18 K/uL (0.00-0.50); Eosinophils Percent Auto 1.7 % (0.0-7.0); Hematocrit 41.9 % (33.0-51.0); Hemoglobin* 13.5 gm/dL (12.0-16.0); Immature Granulocytes Abs Auto 0.04 K/uL (0.00-0.30); Immature Granulocytes Pct Auto 0.4 %; Lymphocytes Percent Auto 17.7 % (20-44); Mean Corpuscular HGB Conc 32 gm/dL (32-36); Mean Corpuscular Hemoglobin 26 pg (26-34); Mean Corpuscular Volume 80 fL (80-100); Monocytes Percent Auto 8.8 % (0.0-11.0); Neutrophils Percent Auto 70.9 % (42.0-72.0); Platelet Count* 247 K/uL (140-440); RDW Coefficient of Variation % 15.2 % (11.5-15.5); Red Blood Count 5.22 m/uL (4.00-5.20); White Blood Count* 10.44 K/uL (4.50-11.00)
[2023-01-04 03:01] LABS: Slide Review Reflex No
[2023-01-04 03:02] LABS: Albumin* 4.5 g/dL (3.3-5.0); Chloride* 99 mmol/L (96-114)
[2023-01-04 03:03] LABS: Potassium* 3.6 mmol/L (3.6-5.1); Sodium* 133 mmol/L (135-149)
[2023-01-04 03:05] LABS: Alanine Aminotransferase* 26 U/L (4-35); Alkaline Phosphatase* 89 U/L (40-150); Anion Gap 9 mEq/L (7-15); Aspartate Amino Transferase* 35 U/L (12-35); Bilirubin Total* 0.4 mg/dL (0.1-1.5); Blood Urea Nitrogen* 22 mg/dL (7-30); Carbon Dioxide* 25 mmol/L (20-32); Creatinine* 0.7 mg/dL (0.5-1.5); Estimated Glomerular Filt Rate 84 ml/min; Glucose* 122 mg/dL (60-115); Prothrombin Time 11.6 Seconds; Total Protein* 8.2 g/dL (6.0-8.3)
[2023-01-04 03:06] LABS: Calcium* 9.4 mg/dL (8.4-10.6); Partial Thromboplastin Time* 29 Seconds (23-33)
[2023-01-04 03:09] LABS: D Dimer Quantitative* 0.97 ug/ml (0.00-0.50)
--- NOTE | 2023-01-04 03:09 | ED.GENADULT ---
HPI - General Adult General Chief complaint: Chest Pain Stated complaint: Chest Pain Time Seen by Provider: 01/04/23 03:21 History of Present Illness HPI narrative: 87-year-old woman presenting to the emergency department approximately 4 hours after onset of not feeling well. She describes nausea and some episodes of dry heaves. Then started to have some chest pain gesturing to the mid sternum. She notes that this has been coming and going over this period of time. Arrives with it around a 1 or 2 maybe. She is extremely anxious. History of diabetes and numerous medication allergies/intolerances. History of idiopathic urticaria. She notes that has also been told absolutely not to take aspirin as it might set off her asthma or has done so. She has declined treatment beyond a dose of Zofran from EMS. EMS arrives with concerns of potential STEMI. Ms. Unger is not short of breath. Related Data Home Medications Medication Instructions Recorded Confirmed calcium carbonate 300 mg (750 mg) 300 mg PO .prn PRN 01/28/22 12/17/22 chewable tablet (Tums E-X) calcium carbonate 600 mg calcium 600 mg PO QDAY 01/28/22 12/17/22 (1,500 mg) tablet (Calcium) multivitamin (Daily Multi-Vitamin 1 tab PO QAM 01/28/22 12/17/22 tablet) sodium chloride 0.65 % nasal spray 1 spray intranasal .prn 01/28/22 12/17/22 aerosol (Saline Nasal) chlorpheniramine maleate 4 mg 2 mg PO Q12H PRN allergy symptoms 02/23/22 12/17/22 tablet (Allergy (chlorpheniramine)) polyethylene glycol 3350 17 4 g PO ONCE 04/30/22 12/17/22 gram/dose oral powder (Miralax) simethicone 125 mg capsule (Gas 125 mg PO BID-QID PRN 04/30/22 12/17/22 Relief (simethicone)) lactase 9,000 unit chewable tablet 9,000 unit PO ONCE 07/22/22 12/17/22 (Lactaid Fast Act) Previous Rx's Medication Instructions Recorded albuterol sulfate 90 mcg/actuation 2 puff inhalation .Q12 shortness 01/28/22 aerosol inhaler of breath or wheezing #6.7 grams fluticasone propionate 110 2 inh inhalation BID #12 grams 01/28/22 mcg/actuation HFA aerosol inhaler (Flovent HFA) levothyroxine 25 mcg tablet 25 mcg PO DAILY #90 tabs 01/28/22 ondansetron 4 mg disintegrating 4 mg PO BID-TID PRN nausea and 01/28/22 tablet vomiting #30 tabs sertraline 50 mg tablet 50 mg PO QPM #90 tabs 01/28/22 clonidine HCl 0.1 mg tablet 0.05 mg (1/2 x 0.1 mg) PO TID PRN 03/03/22 hypertension #180 tabs lorazepam 0.5 mg tablet 0.5 mg PO DAILY PRN anxiety #30 04/30/22 tabs prednisone 5 mg tablet 5 mg PO QAM #90 tabs 09/21/22 losartan 25 mg tablet 25 mg PO BID htn #180 tabs 11/10/22 omeprazole 20 mg capsule,delayed 40 mg (2 x 20 mg) PO QHS #60 caps 12/08/22 release Allergies Allergy/AdvReac Type Severity Reaction Status Date / Time codeine Allergy Severe Hallucinati Verified 12/17/22 09:43 ng hydrocodone Allergy Severe confusion/h Verified 12/17/22 09:43 allucinatin g oxycodone Allergy Severe Confusion Verified 12/17/22 09:43 penicillin V Allergy Severe Anaphylaxis Verified 12/17/22 09:43 rosuvastatin Allergy Severe Swelling Verified 12/17/22 09:43 of Lip/Tongue/Throat amlodipine Allergy Intermediate Flushing Verified 12/17/22 09:43 bisacodyl Allergy Intermediate rash/scalp, Verified 12/17/22 09:43 [From Dulcolax (bisacodyl)] redness to eyelid hydromorphone Allergy Intermediate mental Verified 12/17/22 09:43 changes lisinopril Allergy Intermediate itchy Verified 12/17/22 09:43 metformin Allergy Intermediate nausea, Verified 12/17/22 09:43 diarrhea aspirin Allergy Mild Rash Verified 12/17/22 09:43 atorvastatin Allergy Mild Rash Verified 12/17/22 09:43 calcitonin Allergy Mild Rash Verified 12/17/22 09:43 loratadine Allergy Mild Rash Verified 12/17/22 09:43 alendronate sodium Allergy Unknown Verified 12/17/22 09:43 lorazepam Allergy severe Verified 12/17/22 09:43 hallucinations montelukast Allergy Hallucinati Verified 12/17/22 09:43 ng peas Allergy Anaphylaxis Verified 12/17/22 09:43 Sulfa (Sulfonamide Allergy Anaphylaxis Verified 12/17/22 09:43 Antibiotics) petrolatum Allergy Rash Uncoded 12/17/22 09:43 Review of Systems Status of ROS: Reports: 6 or more systems reviewed and unremarkable except as noted in History and below PFSH PFSH Medical History Abnormal involuntary movements ?R25.9 - Unspecified abnormal involuntary movements (ICD-10) Arm pain ?M79.603 - Pain in arm, unspecified (ICD-10) Dysthymia ?F34.1 - Dysthymic disorder (ICD-10) Personal history of gallstones ?Z87.19 - Personal history of other diseases of the digestive system (ICD-10) Iron deficiency anemia ?D50.9 - Iron deficiency anemia, unspecified (ICD-10) Functional dyspepsia ?K30 - Functional dyspepsia (ICD-10) Diverticulitis large intestine w/o perforation or abscess w/o bleeding ?K57.32 - Diverticulitis of large intestine without perforation or abscess without bleeding (ICD-10) Chronic nausea ?R11.0 - Nausea (ICD-10) Thyroid nodule ?E04.1 - Nontoxic single thyroid nodule (ICD-10) Chronic vertigo ?R42 - Dizziness and giddiness (ICD-10) Benign gastric polyp ?K31.7 - Polyp of stomach and duodenum (ICD-10) Diabetes mellitus ?E11.9 - Type 2 diabetes mellitus without complications (ICD-10) Epistaxis ?R04.0 - Epistaxis (ICD-10) Temporal headache ?R51.9 - Headache, unspecified (ICD-10) Throat clearing ?R09.89 - Other specified symptoms and signs involving the circulatory and respiratory systems (ICD-10) Tetanus vaccine side effect ?T50.A95A - Adverse effect of other bacterial vaccines, initial encounter (ICD-10) Statin intolerance ?Z78.9 - Other specified health status (ICD-10) Perforated nasal septum ?J34.89 - Other specified disorders of nose and nasal sinuses (ICD-10) History of chronic eczema ?Z87.2 - Personal history of diseases of the skin and subcutaneous tissue (ICD-10) Environmental allergies ?Z91.09 - Other allergy status, other than to drugs and biological substances (ICD-10) Aspirin allergy ?Z88.8 - Allergy status to other drugs, medicaments and biological substances (ICD-10) Hyponatremia ?E87.1 - Hypo-osmolality and hyponatremia (ICD-10) Health care directive on file ?Z78.9 - Other specified health status (ICD-10) Surgical History History of esophageal dilatation (2018) ?Z98.890 - Other specified postprocedural states (ICD-10) History of tonsillectomy and adenoidectomy ?Z90.89 - Acquired absence of other organs (ICD-10) History of dilation and curettage ?Z98.890 - Other specified postprocedural states (ICD-10) 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 Social History Narrative: does not drink alcohol exercises regularly - 2 adult daughters, little/no contact, closest to foster son KAM[place], independent living [facility] non-smoker Smoking Status: Never smoker Do you use any of these nicotine containing products: None How often do you have a drink containing alcohol: never How often do you have six or more drinks on one occasion: Never AUDIT-C Alcohol total score: 0 Non-prescribed substance use: denies use Little interest or pleasure in doing things: not at all Feeling down, depressed, or hopeless: several days service: No Exam Narrative: Exam Narrative: As noted rather anxious arrives with blood pressures of around 191/90 I believe. His breathing easily though. A little tremulous. Skin is warm and dry. Lower extremities with trace pretibial pitting edema. Well-perfused peripherally. Lungs appear to be clear. Heart is in an elevated rate in a regular rhythm. She is wearing a splint on the right wrist presumably from recent right ulnar styloid fracture. Distal radius fracture as well. Abdomen is soft she guards a little bit to initial palpation both repeat palpation appears to be soft and not particularly tender. Const: Documenting provider has reviewed patient's vital signs: yes Medical Decision Making MDM Narrative Medical decision making narrative: Differential includes vascular dissection, pulmonary embolus, ischemic cardiovascular event, anxiety, pericarditis, gastritis, esophageal/gerd pain. Receiving EKG I discuss quickly with Ms. Unger and her that I am concerned about cardiac event. Does appear to be ST elevation RI though unusual, broad area of ST elevation almost as if pulmonary embolus though she does not have the respiratory symptoms and might expect with this degree of a pulmonary embolus. Initiated level 1 protocol. Ambulance has been held to facilitate more rapid transport. Pain had escalated and with initial dose of nitroglycerin, did improve again, lessen markedly. I called after receipt of EKG to [facility]. Spoke with Dr. Lay and sent him the EKGs. He concurs that this is unusual, like pulmonary embolus with RV strain pattern specifically, but would also treat as STEMI. Indeed initial point of care troponin I is 0.42 Challenges to speed of care partly due to Ms. Lindquist anxiety and time in encouragement/coaxing needed to accept medical treatment. She did not receive aspirin per her history of allergy and refusal. She did accept ticagrelor with cardiology and our insistence. Did receive small dose of lorazepam and then with further concerns of hers of a potential reaction to medications given ?I don't feel right? with elevating related anxiety, was given diphenhydramine. Transported via ALS ground code 3 to [place] Had ordered chest x-ray one-view portable however with cares required and time involved, as well as some degree of refusal, this was never accomplished prior to departure. Medical Records Medical records reviewed: Yes I reviewed the patient's medical records Lab Data Lab results reviewed: Yes I reviewed the patient's lab results Labs: Lab Results 01/04/23 01/04/23 Range/Units 02:35 02:37 WBC 10.44 (4.50-11.00) K/uL RBC 5.22 H (4.00-5.20) m/uL Hgb 13.5 (12.0-16.0) gm/dL Hct 41.9 (33.0-51.0) % MCV 80 (80-100) fL MCH 26 (26-34) pg MCHC 32 (32-36) gm/dL RDW Coeff of Eric 15.2 (11.5-15.5) % Plt Count 247 (140-440) K/uL Neut % (Auto) 70.9 (42.0-72.0) % Lymph % (Auto) 17.7 L (20-44) % [place] % (Auto) 8.8 (0.0-11.0) % Eos % (Auto) 1.7 (0.0-7.0) % Baso % (Auto) 0.5 (0.0-3.0) % Neut # (Auto) 7.40 H (1.7-7.0) K/uL Lymph # (Auto) 1.80 (0.90-2.90) K/uL [place] # (Auto) 0.90 (0.00-0.90) K/UL Eos # (Auto) 0.18 (0.00-0.50) K/uL Baso # (Auto) 0.05 (0.00-0.30) K/uL Abs Immat Gran (auto) 0.04 (0.00-0.30) K/uL Imm/Tot Granulo (auto) 0.4 % INR 0.80 L (0.91-1.10) APTT 29 (23-33) Seconds D-Dimer Quant (PE/DVT) 0.97 H (0.00-0.50) ug/ml Sodium 133 L (135-149) mmol/L Potassium 3.6 (3.6-5.1) mmol/L Chloride 99 (96-114) mmol/L Carbon Dioxide 25 (20-32) mmol/L Anion Gap 9 (7-15) mEq/L BUN 22 (7-30) mg/dL Creatinine 0.7 (0.5-1.5) mg/dL Estimated GFR 84 ml/min Glucose 122 H (60-115) mg/dL Calcium 9.4 (8.4-10.6) mg/dL Total Bilirubin 0.4 (0.1-1.5) mg/dL Direct Bilirubin 0.0 (0.0-0.5) mg/dL AST 35 (12-35) U/L ALT 26 (4-35) U/L Alkaline Phosphatase 89 (40-150) U/L Troponin I 0.55 H* (0.01-0.04) ng/mL NT-Pro-B Natriuret Pep 315 pg/mL Total Protein 8.2 (6.0-8.3) g/dL Albumin 4.5 (3.3-5.0) g/dL POC Troponin I 0.42 H (0.01-0.04) ng/ml ECG Data Attestation: I personally reviewed and interpreted this ECG as follows: (ST elevations of 2 mm particularly in leads V2 and AVL. Notable ST depressions in leads 2, 3, AVF. Rate of 78. This is a normal sinus rhythm) Discharge Plan Discharge Clinical Impression: Anxiety, ST elevation (STEMI) myocardial infarction Patient Disposition: Xfer [facility] Discharge Location: [facility] Condition: Guarded Prescriptions: No Action polyethylene glycol 3350 [Miralax] 17 gram/dose powder 4 g PO ONCE simethicone [Gas Relief (simethicone)] 125 mg capsule 125 mg PO BID-QID PRN lorazepam 0.5 mg tablet 0.5 mg PO DAILY PRN (Reason: anxiety) Qty: 30 0RF omeprazole 20 mg capsule,delayed release(DR/EC) 40 mg PO QHS Qty: 60 0RF calcium carbonate [Tums E-X] 300 mg (750 mg) tablet,chewable 300 mg PO .prn PRN calcium carbonate [Calcium 600] 600 mg calcium (1,500 mg) tablet 600 mg PO QDAY Saline Nasal 0.65 % aerosol,spray 1 spray intranasal .prn multivitamin [Daily Multi-Vitamin] Tablet 1 tab PO QAM sertraline 50 mg tablet 50 mg PO QPM Qty: 90 4RF levothyroxine 25 mcg tablet 25 mcg PO DAILY Qty: 90 4RF fluticasone propionate [Flovent HFA] 110 mcg/actuation HFA aerosol inhaler 2 inh inhalation BID Qty: 12 12RF Rx Instructions: administer with spacer albuterol sulfate 90 mcg/actuation HFA aerosol inhaler 2 puff INHALATION .Q12 Qty: 6.7 12RF ondansetron 4 mg tablet,disintegrating 4 mg PO BID-TID PRN (Reason: nausea and vomiting) Qty: 30 4RF clonidine HCl 0.1 mg tablet 0.05 mg PO TID PRN (Reason: hypertension) Qty: 180 4RF Rx Instructions: additional half tablet in SBP 165 Lactaid Fast Act 9,000 unit tablet,chewable 9,000 unit PO ONCE Rx Instructions: administer with meals and/or snacks prednisone 5 mg tablet 5 mg PO QAM Qty: 90 3RF losartan 25 mg tablet 25 mg PO BID Qty: 180 0RF chlorpheniramine maleate [Allergy (chlorpheniramine)] 4 mg tablet 2 mg PO Q12H PRN (Reason: allergy symptoms) Rx Instructions: do not exceed 2 doses per 24 hrs Stand Alone Forms: [employer] Info Instructions
[2023-01-04] MEDS: LORazepam 2 MG/ML inj 0.25 MG IVP (03:11)
[2023-01-04] MEDS: diphenhydrAMINE 50 MG/ML inj 25 MG IVP (03:13)
[2023-01-04 03:15] LABS: Troponin, Point-of-Care* 0.42 ng/ml (0.01-0.04)
[2023-01-04 03:19] LABS: NT Pro B Type NatriureticPept* 315 pg/mL; Troponin I* 0.55 ng/mL (0.01-0.04)
--- NOTE | 2023-01-04 03:38 | PC.NURSE ---
patient left via EMS transport to [place], all items sent with EMS. report called to [facility] nurse. patient alert/oriented upon leaving with EMS crew
== END 2023-01-04 03:43 | disposition short-term general hospital (02) ==
PROVIDERS: Emergency Provider Family Medicine; PCP Family Medicine
DX: I21.3 ST elevation (STEMI) myocardial infarction of unspecified site (principal); F41.9 Anxiety disorder, unspecified
CPT/HCPCS: 36415; 80048; 80076; 83880; 84484; 85025; 85027; 85379; 85610; 85730; 94761; 96374; 96375; 99284; 99285; A9270; J1200; J1644; J2060

== ENCOUNTER 2023-01-04 03:31 | Outpatient (CLI) | payer MEDICARE, OTHER, SELFPAY | END 2023-01-04 03:32 | disposition home or self-care (01) | LOC: AMB 01-08 18:10 | PROVIDERS: PCP Family Medicine; Visit Provider Family Medicine | DX: I21.4 Non-ST elevation (NSTEMI) myocardial infarction (principal) | CPT/HCPCS: A0425; A0426; A0427 ==

== ENCOUNTER 2023-01-24 08:51 | Outpatient (CLI) | payer MEDICARE, OTHER, SELFPAY ==
--- OUTSIDE RECORDS SUMMARY | 2023-01-24 21:54 | XMS_ITS | Continuity of Care Document ---
Author Name Unknown Organization [facility] Address [address] [address] [place] [address] Phone Care Team Providers Care Front End Software Developer Name Role Phone Armaan Lamas MD Unavailable [...] Active Procedures Procedure Date Offic/outpt E&m Estab [facility] 8 Ugi Endo; W/insrt Guide Wire Ugi Endo; W/bx 1/mx Offic/outpt E&m Estab [facility] 2 18 Offic/outpt E&m Estab [facility] 2 18 Offic/outpt E&m Estab [facility] 2 16 Offic/outpt E&m Estab [facility] 2 15 Offic[facility]outpt [facility]outpt [facility] Offic[facility]outpt [facility] Offic/outpt E&m [facility] Advance Directives Directive Yes / No Effective Date File Name No Information Encounters Encounter Description Practice Location Reason(s) For Visit Diagnoses Date Provider Providers Copied on Encounter [facility] DAYNA HARMAN [address] [address], [place], [id number], [place] tel:[phone] [facility] No Information 3 Alfred Crook. [address] [facility], [facility] [address], [facility] [place], [id number] , [place]. [phone] [facility], [address] [address], [place], [place], [id number], [place] tel:[phone] [facility] No Information 3 Alfred Crook. [address] [facility], [facility] [address], [facility] [place] [place], [id number] , [place]. [phone] Offic/outpt E&m Estab Low-mod [facility], [address] [address], [place], [place], [id number], [place] tel:[phone] [facility] GI Symptoms or Concerns (chief complaint) Gastroesophageal reflux disease without esophagitisGastr oparesisEssentia l (primary) hypertension 8 Edelmira Yates . [address] [facility], [facility] [address], [facility] [place], [id number] , [place]. [phone] Referring Provider: Loren Beyer MD, [address] [place], [address]. tel:[phone] [facility], [address] [address], [facility] [id number], [place] tel:[phone] [facility] No Information 8 Mikie Whitman. [address] [facility], [facility] [address], [facility] [place], [id number] , [place]. tel:[phone] Referring Provider: Loren Beyer MD, [address] [place], [address]. tel:[phone] Offic/outpt E&m Estab Mod-hi 2 [facility], [address] [address], [facility] [place], [id number], [place] tel:[phone] [facility] GI Symptoms or Concerns (chief complaint) Dysphagia, unspecified typeGastroesopha geal reflux disease, esophagitis presence not specifiedFull incontinence of feces 8 Edelmira Yates . [address] [facility], [address], [facility] [place], [id number] , [place]. tel: [phone] Referring Provider: Referral Self. Offic/outpt E&m Estab Mod-hi 2 [facility], [address] [address], [place], [id number], [place] tel:[phone] [facility] GI Symptoms or Concerns (chief complaint) Gastroesophageal reflux disease, esophagitis presence not specifiedDysphag ia, unspecified typeEssential (primary) hypertension 8 Edelmira Yates . [address] [facility], [facility] [address], [facility] [place], [id number] , [place]. tel: [phone] Referring Provider: Loren Beyer MD, [address] [place], [address]. tel:[phone] Offic/outpt E&m Estab Mod-hi 2 [facility], [address] [address], [place], [address], [place] tel:[phone] [facility] GI Symptoms or Concerns (chief complaint) GastroparesisChr onic constipationHear tburnEssential (primary) hypertension 6 Abbey Salgado [address] [facility], [address], [facility] [place], [id number] , [place]. tel: [phone] Referring Provider: Referral Self. Offic/outpt E&m Estab Mod-hi 2 [facility], [address] [address], [place], [id number], [place] tel:[phone] [facility] GI Symptoms or Concerns (chief complaint) Irritable Colon 5 Jaylen Nicole. [address] [facility], [address], [place], [id number] , [place]. tel: [phone] Referring Provider: Referral Self. Offic/outpt E&m Estab Low-mod [facility], [address] [address], [place], [address], [place] tel:[phone] [facility] GI Symptoms or Concerns (chief complaint) Additional Narrative (chief complaint) GastroparesisDie tary Surveil/counselE lev Bl Pres W/o Hypertn 4 Clement Marvin. [address] [facility], [address], [facility], [id number] , [place]. [phone] Referring Provider: Referral Self. Offic/outpt E&m Estab Low-mod [facility], [address] [address], [place], [id number], [place] tel:[phone] [facility] Abd Pain Generalized Jul- 4 Clement Marvin. [address] [place] [address], [facility] [address], [facility] [place], [id number] , [place]. tel:[phone] Referring Provider: Arlin Ayala, [address] [place], [address]. tel:[phone] Offic/outpt E&m Estab Low-mod [facility], [address] [address], [place], [address], [place] tel:[phone] [facility] Dyspepsia/acid Peptic DiseaseConstipat ion Unspecified 4 Ethan Ramirez. [address] [facility], [address], [facility] [place], [id number] , [place]. [phone] Referring Provider: Arlin Ayala, [address] [facility], [place], [address]. tel:[phone] Offic/outpt E&m [facility], [address] [address], [place], [address], [place] tel:[phone] [facility] Dyspepsia/acid Peptic Disease 4 Clement Marvin. [address] [facility], [address], [facility] [place], [id number] , [place]. [phone] Referring Provider: Arlin Ayala, [address] [place], [address]. tel:[phone] Family History Family Member Type Diagnosis Age [...] bi-directional interface ; Source: Other Registry Novel [id number], all formulations administered Note: [facility] bi-direct ional [...] Registry Payers Payer name Insurance type Covered democrat ID Authoriza tion(s) [employer] 16 [id number] Social History Type Description Quantity Date Captured [...] an underlying history of gastroparesis made in [place] many years ago, with an associated chronic [...] an underlying diagnosis of gastroparesis made in [place] many years ago. She has a chronically [...] as a diagnosis of gastroparesis made in [place] many years ago. She has a chronically [...] history of gastroparesis that was diagnosed in [place] a number of years ago. However, she [...] We will proceed with upper endoscopy at [facility] to include possible dilation and esophageal biopsies. 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 We discussed that this could certainly increase [...] with her primary physician Dr. López in [place]. Related to Irritable Colon 1.) I would [...]
== END 2023-01-24 08:52 | disposition home or self-care (01) ==
LOC: NFLDREF 21:53
PROVIDERS: PCP Family Medicine; Referring Provider Family Medicine; Visit Provider Family Medicine
DX: D64.9 Anemia, unspecified (principal); I10 Essential (primary) hypertension; E11.9 Type 2 diabetes mellitus without complications; E03.9 Hypothyroidism, unspecified; E78.5 Hyperlipidemia, unspecified
CPT/HCPCS: 80053; 80061; 84443

== ENCOUNTER 2023-03-02 08:20 | Outpatient (CLI) | payer MEDICARE, OTHER, SELFPAY | END 2023-03-02 08:21 | disposition home or self-care (01) | LOC: NFLDREF 03-04 12:32 | PROVIDERS: PCP Family Medicine; Referring Provider Family Medicine; Visit Provider Family Medicine | DX: I10 Essential (primary) hypertension (principal) | CPT/HCPCS: 80048 ==

== ENCOUNTER 2023-03-09 13:15 | Outpatient (RCR) | payer MEDICARE, OTHER, SELFPAY ==
--- NOTE | 2023-02-24 18:06 | OT.OPOE ---
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 Date of Onset October Medical Conditions DM,Depression,Heart Condition, HTN,Metal Implants,Respiratory ,Arthritis,Osteoporosis Other Conditions Multiple drug allergies, recent cardiac stent placement Medical/Functional History Medical History Reviewed Yes Prior Level of Function/Mobility Medical History ST elevation (STEMI) myocardial infarction () I21.3 - ST elevation (STEMI) myocardial infarction of unspecified site (ICD-10) Fracture of right ulnar styloid S52.611A - Displaced fracture of right ulna styloid process, initial encounter for closed fracture (ICD-10) Personal history of gallstones Z87.19 - Personal history of other diseases of the digestive system (ICD-10) Iron deficiency anemia D50.9 - Iron deficiency anemia , unspecified (ICD-10) Functional dyspepsia K30 - Functional dyspepsia ( ICD-10) Diverticulitis large intestine w/o perforation or abscess w/ o bleeding K57.32 - Diverticulitis of large intestine without perforation or abscess without bleeding (ICD-10) Chronic nausea R11.0 - Nausea (ICD-10) Thyroid nodule E04.1 - Nontoxic single thyroid nodule (ICD-10) Chronic vertigo R42 - Dizziness and giddiness (ICD-10) Benign gastric polyp K31.7 - Polyp of stomach and duodenum (ICD-10) Diabetes mellitus E11.9 - Type 2 diabetes mellitus without complications (ICD-10) Epistaxis R04.0 - Epistaxis (ICD-10) Temporal headache R51.9 - Headache, unspecified (ICD-10) Throat clearing R09.89 - Other specified symptoms and signs involving the circulatory and respiratory systems (ICD-10) Tetanus vaccine side effect T50.A95A - Adverse effect of other bacterial vaccines, initial encounter (ICD-10) Statin intolerance Z78.9 - Other specified health status (ICD-10) Perforated nasal septum J34.89 - Other specified disorders of nose and nasal sinuses (ICD-10) History of chronic eczema Z87.2 - Personal history of diseases of the skin and subcutaneous tissue (ICD-10) Environmental allergies Z91.09 - Other allergy status, other than to drugs and biological substances (ICD-10) Aspirin allergy Z88.8 - Allergy status to other drugs, medicaments and biological substances (ICD-10) Hyponatremia E87.1 - Hypo-osmolality and hyponatremia (ICD-10) Health care directive on file Z78.9 - Other specified health status (ICD-10) Surgical History (Reviewed @ 09:35 by Elisabeth Wheeler ~ LAT ATC) History of heart artery stent (01/04/23) Z95.5 - Presence of coronary angioplasty implant and graft (ICD-10) History of esophageal dilatation (2018) Z98.890 - Other specified postprocedural states (ICD-10) History of tonsillectomy and adenoidectomy Z90.89 - Acquired absence of other organs (ICD-10) History of dilation and curettage Z98.890 - Other specified postprocedural states (ICD-10) History of revision of total shoulder arthroplasty () Z96.619 - Presence of unspecified artificial shoulder joint (ICD-10) Medications: albuterol sulfate 90 mcg/ actuation 2 puffs inhalation . Q12 calcium carbonate (Calcium) 600 mg PO QDAY calcium carbonate (Tums E-X) 300 mg PO .prn PRN chlorpheniramine maleate ( Allergy (chlorpheniramine)) 2 mg PO Q12H PRN clonidine HCl 0.05 mg (1/2 x 0 .1 mg) PO TID clopidogrel 75 mg PO DAILY ezetimibe 10 mg PO DAILY fluticasone propionate 110 mcg /actuation (Flovent HFA) 2 inhalations inhalation BID lactase (Lactaid Fast Act) 9, 000 units PO ONCE levothyroxine 25 mcg PO DAILY lorazepam 0.5 mg PO DAILY PRN losartan 25 mg PO QDAY metoprolol succinate ER 25 mg PO DAILY multivitamin (Daily Multi- Vitamin tablet) 1 tab PO QAM nitroglycerin 0.4 mg sublingual Q5-15M PRN omeprazole 40 mg (2 x 20 mg) PO BID ondansetron 4 mg PO BID-TID PRN polyethylene glycol 3350 ( Miralax) 4 grams PO ONCE PRN prednisone 5 mg PO QAM rosuvastatin 5 mg PO QHS sertraline 50 mg PO QPM simethicone (Gas Relief ( simethicone)) 125 mg PO BID- QID PRN sodium chloride 0.65% (Saline Nasal) 1 spray intranasal .prn Social History Employment Status Retired Fitness Relatively sedentary secondry to multiple medical problems currently Ortho Subjective Subjective Subjective Pt states that back in October, she tripped over a rocker leg in her apartment and fell on her right hand sustaining a wrist fracture. Pt was casted, no surgery. Pt was casted and had a total of 3 casts, pt states she had one cast that became quite tight after she left the clinic and it instantly caused increased pain and paresthesia in her hand, states she had to have it changed the next day. Pt states her sxs have not gotten any better and she is really not able to use her right hand for anything including writing, washing dishes, typing, mouse, eating with utensils, and brushing her teeth. Pt lives in Housing complex with her , states he has been doing everything and helps her when she needs it. Pt was given a wrist splint in orthopedics after her cast came off, states it was recommended that she still wear it, but it has been very uncomfortable and she is not able to tolerate it . Pt states she has pain and paresthesia all the time in her right hand, mainly in the thumb, IF, MF, and RF. Pt rates her pain at 4/10 on average. Range of Motion and Strength Elbow/Forearm Range of Motion and Strength Elbow/Forearm Range of Motion and 02/24/23 Pt demonstrates full Strength AROM of RUE elbow and forearm. Wrist Range of Motion and Strength Wrist Range of Motion and Strength 02/24/23 AROM of the RUE wrist flexion is 60, ext is 45, UD is 20, RD is 20. Pt demonstrates full fist and full opposition. AROM of RUE thumb is WNL. Hand Pinch/Supervisor Soldering Strength Hand Right Supervisor Soldering Strength Position 1 (lbs) 15 Lateral Pinch Strength (lbs) 5 Three Point Pinch (lbs) 5 Left Supervisor Soldering Strength Position 1 (lbs) 30 Lateral Pinch Strength (lbs) 7 Three Point Pinch (lbs) 6 Comments Comments 02/24/23 Pt has significant increased paint with supervisor ski production and pinch strength testing on the RUE. Upper Extremity Special Tests Wrist Durkan's Test Positive Right Upper Extremity Special Tests Comments Comments 02/24 23 Durkan's (+) at 12 seconds. Monofilament testing of finger tips of RUE: Th: 6. 65, IF: 3.61, MF: 4.56, RF: 3. 61, SF: 3.61. OT Problems Problems Problems Decreased Strength,Decreased Range of Motion,Decreased Dexterity,Pain,Decreased Coordination,Sensory Sensitivity,Lifting,Gripping, Pinching Other Problems Writing,Opening Containers, Dressing,Computer,Fasteners, Sleeping Patient Potential Fair Assessment Assessment Assessment Pt is a very pleasant 87yo female with complaints of RUE pain, paresthesia, weakness and limited AROM. Occupational Therapy Treatment Plan - OP Potential Rehabilitation Potential Fair Barriers Barriers to goal attainment Pt struggles to find transportation to OT, lives in Sr Housing and does not drive . Set Goals Goals Set with Patient Yes Goals Goals 1. Pt will be independent and compliant with HEP in order to resume full, pain-free use of the involved UE. 3 weeks 2. Pt will demonstrate full, pain-free AROM of the involved UE in order to improve ability to grasp and hold. 6 weeks 3. Pt will demonstrate pain- free supervisor ski production and pinch strength comparable to the uninvolved side in order to improve functional grasp, hold, reach, and lifting ability needed to complete self-care, leisure tasks, and work activities. 6 weeks. 4. Pt will verbalize the ability to sleep through the night without being awakened secondary to pain and paresthesia indicating reduced compression / healing of the median nn. 8 weeks. Treatment Plan Treatment Plan Evaluation,Edema Control, Iontophoresis,Manual Therapy, Splinting,Ultrasound, Therapeutic Exercise, Therapeutic Activities,Self Care/Home Management,Education Expected Frequency 1-2x Week Expected Duration 6-8 Weeks Home Program Home Program Home Program Initiated Home Program Specifics Provided training and practice in HEP for differential tendon glides. Following demo , pt is able to complete exs with minimal cues. Pt was provided with written inst as well. Also recommended pt try wearing her splint to bed as well as throughout the day if it seems to help sxs. Splint was adjusted for comfort by removing the metal stay in the volar portion, pt felt this was much better. Certification Certification I Certify That: Therapy Services Provided, Therapy Plan Established, Therapy Plan Reviewed Recertification Information Recertification Information Initial Certification Date 02/24/23 Recertification Due Date 05/25/23 Reasons to Continue Skilled Therapy Initiated OT today secondary to severe CTS with pain, paresthesia, limited ROM and weakness in the RUE which impairs her safety and independence with ADLs and IADLs. Rehabilitation Potential fair Continued Plan of Care and Interventions Please see above. Provider Signature Shows Agreement With POC & Medical Necessity Physician Comment/Change Comment or Changes Physician NPI Number #
== END 2023-05-24 08:59 | disposition home or self-care (01) ==
PROVIDERS: PCP Family Medicine; Visit Provider Physician Assistant Surgical
DX: G56.01 Carpal tunnel syndrome, right upper limb (principal); Z51.89 Encounter for other specified aftercare
CPT/HCPCS: 97035; 97110; 97140; 97165; X5282

== ENCOUNTER 2023-05-19 06:14 | Day surgery (SDC) | payer MEDICARE, OTHER, SELFPAY ==
[2023-05-19] VITALS (10 sets, daily range): BP systolic 146–224; BP diastolic 94–104; PULSE 65–79; RESP 15–20; TEMP 36.6; O2SAT 95–100; BMI 23.5
--- OUTSIDE RECORDS SUMMARY | 2023-05-19 06:18 | XMS_ITS | Continuity of Care Document ---
Author Name Unknown Organization [facility] Address [address] [address] [place] [address] Phone Care Team Providers Care Integration Technician Name Role Phone Armaan Lamas MD Unavailable [...] Active Procedures Procedure Date Offic/outpt E&m Estab [facility] 8 Ugi Endo; W/insrt Guide Wire Ugi Endo; W/bx 1/mx Offic/outpt E&m Estab [facility] 2 18 Offic/outpt E&m Estab [facility] 2 18 Offic/outpt E&m Estab [facility] 2 16 Offic/outpt E&m Estab [facility] 2 15 Offic/outpt E&m Estab [facility] 4 Offic/outpt E&m Estab [facility] 4 Offic/outpt E&m Estab [facility] 4 Offic/outpt E&m [facility] Advance Directives Directive Yes / No Effective Date File Name No Information Encounters Encounter Description Practice Location Reason(s) For Visit Diagnoses Date Provider Providers Copied on Encounter [facility] DAYNA HARMAN [address] [address], [place], [id number], [place] tel:[phone] [facility] No Information 3 Alfred Crook. [address] [facility] [address], [facility] [place], [id number] , [place]. [phone] [facility], [address] [address], [place], [place], [id number], [place] tel:[phone] [facility] No Information 3 Alfred Crook. [address] [facility] [address], [facility] [place], [id number] , [place]. [phone] Offic/outpt E&m Estab Low-mod [facility], [address] [address], [place], [place], [address], [place] tel:[phone] [facility] GI Symptoms or Concerns (chief complaint) Gastroesophageal reflux disease without esophagitisGastr oparesisEssentia l (primary) hypertension 8 Edelmira Yates . [address] [facility] [address], [facility] [place], [id number] , [place]. [phone] Referring Provider: Loren Beyer MD, [address] [place], [address]. tel:[phone] [facility], [address] [address], [facility] [place], [id number], [place] tel:[phone] [facility] No Information 8 Mikie Whitman. [address] [facility] [address], [facility] [place], [place], [id number] , [place]. tel:[phone] Referring Provider: Loren Beyer MD, [address] [place], [address]. tel:[phone] Offic/outpt E&m Estab Mod-hi 2 [facility], [address] [address], [facility] [place], [address], [place] tel:[phone] [facility] GI Symptoms or Concerns (chief complaint) Dysphagia, unspecified typeGastroesopha geal reflux disease, esophagitis presence not specifiedFull incontinence of feces 8 Edelmira Yates . [address], [facility] [place], [place], [address] , [place]. [phone] Referring Provider: Referral Self, USE FOR SELF REFERRALS. Offic/outpt E&m Estab Mod-hi 2 [facility], [address] [address], [place], [address], [place] tel:[phone] [facility] GI Symptoms or Concerns (chief complaint) Gastroesophageal reflux disease, esophagitis presence not specifiedDysphag ia, unspecified typeEssential (primary) hypertension 8 Edelmira Yates . [address] [facility] [address] [facility] [address], [facility] [place], [address] , [place]. [phone] Referring Provider: Loren Beyer MD, [address] [place], [address]. tel:[phone] Offic/outpt E&m Estab Mod-hi 2 [facility], [address] [address], [place], [address], [place] tel:[phone] [facility] GI Symptoms or Concerns (chief complaint) GastroparesisChr onic constipationHear tburnEssential (primary) hypertension 6 Abbey Salgado [address] [address] [facility] [address], [facility] [place], [address] , [place]. [phone] Referring Provider: Referral Self, USE FOR SELF REFERRALS. Offic/outpt E&m Estab Mod-hi 2 [facility], [address] [address], [place], [address], [place] tel:[phone] [facility] GI Symptoms or Concerns (chief complaint) Irritable Colon 5 Jaylen Nicole. [address], [place], [address] , [place]. [phone] Referring Provider: Referral Self, USE FOR SELF REFERRALS. Offic/outpt E&m Estab Low-mod [facility], [address] [address], [place], [id number], [place] tel:[phone] [facility] GI Symptoms or Concerns (chief complaint) Additional Narrative (chief complaint) GastroparesisDie tary Surveil/counselE lev Bl Pres W/o Hypertn 4 Clement Marvin. [address], [place], [address] , [place]. [phone] Referring Provider: Referral Self, USE FOR SELF REFERRALS. Offic/outpt E&m Estab Low-mod [facility], [address] [address], [place], [address], [place] tel:[phone] [facility] Abd Pain Generalized 4 Clement Marvin. [address], [place], [place], [address] , [place]. [phone] Referring Provider: Arlin Ayala, [address] [facility], [place], [address]. tel:[phone] Offic/outpt E&m Estab Low-mod [facility], [address] [address], [place], [address], [place] tel:[phone] [facility] Dyspepsia/acid Peptic DiseaseConstipat ion Unspecified 4 Ethan Ramirez. [address], [place], [place], [address] , [place]. tel:[phone] Referring Provider: Arlin Ayala, [address] [place], [address]. tel:[phone] Offic/outpt E&m New Mod-hi [facility], [address] [address], [place], [address], [place] tel:[phone] [facility] Dyspepsia/acid Peptic Disease 4 Clement Marvin. [address], [place], [address] , [place]. tel:[phone] Referring Provider: Arlin López MD E, [address] [place], [address]. tel:[phone] Family History Family Member Type Diagnosis Age [...] bi-directional interface ; Source: Other Registry Novel [id number], all formulations administered Note: [facility] bi-direct ional [...] alliance party ID Authoriza tion(s) [employer] 16 [id number] Social History Type Description Quantity Date Captured [...] an underlying history of gastroparesis made in [place] many years ago, with an associated chronic [...] an underlying diagnosis of gastroparesis made in [place] many years ago. She has a chronically [...] dysphagia. She last saw my colleague in 2016. She has a history of chronic reflux as well as a diagnosis of gastroparesis made in [place] many years ago. She has a chronically [...] does not consume any caffeine or alco Mar-30-2016 GI Symptoms or Concerns Lee Haile is a pleasant 79-year-old female whom I saw in clinic today for discussion of chronic GI complaints. Her main issues today are of constipation, nausea, and epigastric pain. All these symptoms have been long lasting and then presented for years. She does have a history of gastroparesis that was diagnosed in [place] a number of years ago. However, she [...] We will proceed with upper endoscopy at [facility] to include possible dilation and esophageal biopsies. [...] point because I do not feel would price changer. We discussed that this could certainly [...] with her primary physician Dr. López in [place]. Related to Irritable Colon 1.) I would [...]
[2023-05-19] MEDS: CEFAZOLIN 2 GM INJ IVP (06:45)
[2023-05-19] MEDS: SODIUM CHLORIDE 0.9 % (FLUSH) 10 ML SYRINGE IVF (06:45)
[2023-05-19] MEDS: LACTATED RINGERS 1000 ML 1,000 ML 35 ML IV (06:45)
--- NOTE | 2023-05-19 07:15 | P.ORPRC_ITS ---
Procedure Note Date of procedure: 05/19/23 Procedure: Preop diagnosis: Right upper extremity carpal tunnel syndrome Postop diagnosis: Right upper extremity carpal tunnel syndrome Procedure: Right upper extremity carpal tunnel release Anesthesia: Local Surgeon: Ken Parry MD respiratory therapy assistant: FELECIA Koch EBL: 15 mL Complications: None Specimens: None Drains: None Indications: The patient has a history of right upper extremity carpal tunnel syndrome symp toms. Despite appropriate nonoperative management consisting of nighttime bracing and occupational therapy they continue to have symptoms. Operative intervention was recommended. The risks, benefits alternatives and expected outcomes were discussed in detail. These included but were not limited to: Infection, bleeding, injury to blood vessel or nerve, venous thromboembolism. All questions were answered to their satisfaction. The patient was placed supine on the operating room table. Local anesthesia was established with 0.5% Marcaine without epinephrine and 2% lidocaine without epinephrine. The hand was prepped and draped in usual sterile fashion. A longitudinal incision was made centered over the radial border of the ring finger at the base of the palm. Subcutaneous dissection was sharply taken through the palmar fascia and the palmaris brevis to the transverse carpal ligament. Bipolar cautery was used. The ligament was divided in line with the incision. Proximal and distal dissection was carried with tenotomy and Metzenbaum scissors for a wide decompression of the carpal tunnel. The tourniquet was released , bleeding was controlled with direct pressure. The wound was closed with a 3-0 nylon. A bulky dry dressing was applied, sponge and needle counts were correct x 2. The patient tolerated the procedure well, there were no apparent complications. They were sent to same day surgery in satisfactory condition. Plan: Use of the hand as tolerates. Discontinue the intraoperative dressing on postoperative day 3 and may get the wound wet as tolerates. Follow up in the office in 2 weeks for a wound check and suture removal.
[2023-05-19] MEDS: lidocaine HCL 2 % MULTIDOSE 20 ML VIAL 7 ML INJECTION (07:19)
[2023-05-19] MEDS: BUPIVACAINE 0.5% 30 ML 5 ML INJECTION (07:19)
[2023-05-19] MEDS: ETHYL CHLORIDE 1 APPLICATION 1 APPLIC TOPICAL (07:19)
--- NOTE | 2023-05-19 07:30 | SUR.OPER ---
PATIENT QUESTIONS ANSWERED SATISFACTORILY PREOPERATIVELY. PATIENT BROUGHT TO OR #2 PER CART. Patient positioned supine on OR #2 bed. The perioperative team supported right arm bilaterally on arm boards. Final approval of positioning by surgeon.
== END 2023-05-19 08:21 | disposition home or self-care (01) ==
PROVIDERS: PCP Family Medicine; Visit Provider Orthopaedic Surgery
PROC: (CPT 64721; principal; 2023-05-19 07:15)
DX: G56.01 Carpal tunnel syndrome, right upper limb (principal)
CPT/HCPCS: 64721; J0665; J0690; J7120

== ENCOUNTER 2023-07-04 11:06 | Outpatient (CLI) | payer MEDICARE, OTHER, SELFPAY ==
--- OUTSIDE RECORDS SUMMARY | 2023-07-04 15:27 | XMS_ITS | Clinical Summary ---
Author Name Unknown Organization [facility] Address [place], [place] [address] Care Team Providers Care Thread Checker Name Role Phone Loren Beyer MD Primary Care Provider + Allergies Active Allergy Reactions Criticality Noted Date Comments Amlodipine Itching,Nausea Only 08/26/2009 Aspirin Lorazepam Confusion 08/26/2016 Limit ativan to 0.5mg or less as it causes extreme confusion patient reports Loratadine Insomnia 11/07/2006 c/o being hyper and did not sleep for over 50 hours. Codeine Hallucinations 08/26/2016 Food Extracts Tongue Swelling 11/07/2006 Peas--vapors and actual peas Alendronate Sodium Hydrocodone Confusion 03/29/2017 Lidocaine Behavioral Disturbances 01/30/2018 Atorvastatin Lisinopril 01/05/2008 Periorbital rash Calcitonin ([place]) Nsaids (Non-Steroidal Anti-Inflammatory Drug) Aspirin Contraindication (for reporting) 01/30/2018 Unlisted Allergen (Include Detail In Comments) Other - Describe In Comment Field 08/26/2016 Tobacco smoke: Extreme asthma exacerbation Perfumes: Extreme asthma exacerbation Animals: asthma exacerbation Wool fabrics: asthma exacerbation Spicy/acidic foods: acid reflux Oxycodone Confusion 08/26/2016 Peas Throat Swelling/Closing High 01/30/2018 Penicillins White Petrolatum Rash 11/07/2006 Pollen Extracts Wheezing 11/07/2006 Montelukast *Unknown - Pt Doesn' t Remember 08/26/2016 Possible asthma irritation Sulfa (Sulfonamide Antibiotics) Medications Medication Sig Dispensed Refills Start Date End Date Status calcium carbonate-cholecalcifer ol, 600mg-200 units, (CALCIUM 600 WITH VITAMIN D3) 600 mg(1,500mg) -200 unit tablet Take 1 tablet. by mouth once daily with lunch. 0 06/04/2009 Active Lactase 3,000 unit ChewIndications:lactose intolerance Chew by mouth each time if needed. 0 06/04/2009 Active LORazepam (ATIVAN) 0.5 mg tab Take 1 tablet. by mouth each time if needed for Anxiety. 0 08/03/2016 Active FLOVENT HFA 110 mcg/actuation inhaler Take 2 Puffs by mouth 2 times daily. 0 06/15/2016 Active cloNIDine HCL (CATAPRES) 0.1 mg tablet 1/2 tablet (0.05 mg) in AM, 1 tablet (0.1 mg) in PM 0 Active multivitamins-minerals- lutein (Multivitamin 50 Plus) tab tablet Take 1 Tablet by mouth once daily with lunch. 0 Active levothyroxine (Synthroid) 25 mcg tablet Take 25 mcg by mouth once daily in the evening. 0 Active omeprazole (PRILOSEC) 40 mg Delayed-Release capsule Take 40 mg by mouth two times daily. 0 Active predniSONE (DELTASONE) 5 mg tablet Take 5 mg by mouth once daily with a meal. 0 Active albuterol HFA (ProAir HFA) 90 mcg/actuation inhaler Inhale 2 Puffs by mouth two times daily. 0 Active sertraline (ZOLOFT) 50 mg tablet Take 50 mg by mouth once daily. 0 Active calcium carbonate (Tums) 200 mg calcium (500 mg) chewable tablet Chew 500 mg by mouth 3 times daily if needed for GI Upset or Heartburn. 0 Active chlorpheniramine (CHLOR-TRIMETON) 2 mg as half tablet Take 2 mg by mouth every 4 hours if needed. 0 Active artificial tears, peg 400 0.4%-propylene glycol 0.3%, (Systane, propylene glycoL,) ophthalmic Place 1-2 Drops into both eyes 4 times daily if needed for Dry Eyes. 0 Active clopidogreL (PLAVIX) 75 mg tabletIndications:S/P drug eluting coronary stent placement Take 1 Tablet (75 mg) by mouth once daily. *Cardiac stents 01/04/2023* 90 Tablet 3 01/06/2023 Active ezetimibe (ZETIA) 10 mg tabletIndications:Hyper lipidemia LDL goal <70 Take 1 Tablet (10 mg) by mouth once daily. 90 Tablet 3 01/06/2023 Active nitroglycerin (NITROSTAT) 0.4 mg sublingual tabletIndications:Coron wilner artery disease involving augustine coronary artery of augustine heart with unstable angina pectoris (HC) Place 1 Tablet (0.4 mg) under the tongue every 5 minutes if needed for Chest Pain. 25 Tablet 3 01/05/2023 Active rosuvastatin (CRESTOR) 5 mg tabletIndications:Hyper lipidemia LDL goal <70 Take half of a tablet (2.5 mg) by mouth at bedtime. 90 Tablet 3 01/05/2023 Active metoprolol succinate (Toprol XL) 25 mg Sustained-Release tabletIndications:Ische yovana cardiomyopathy Take 1 Tablet (25 mg) by mouth once daily. 90 Tablet 3 01/06/2023 Active losartan (COZAAR) 25 mg tabletIndications:Ische yovana cardiomyopathy Take 1 Tablet (25 mg) by mouth once daily. 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 Keller with ultrasound guidance. April 2017: repeat Greater Trochanteric Bursa injection by Dr. Dunbar without ultrasound. Trochanteric bursitis, left hip 04/20/2017 Overview: Mar 2017: Left Greater Trochanteric Bursa injection by Dr. Dunbar with very good relief. Shingles (right sided upper extremity) 3 Sensorineural hearing loss, asymmetrical 010 Overview: Right-significant change since February 2009 Subjective tinnitus 11/04/2009 Overview: Right ear Depression with anxiety 08/26/2009 Osteoporosis 06/04/2009 Unspecified hypothyroidism 12/25/2008 Unspecified essential hypertension 11/07/2006 Unspecified asthma(493.90) Allergic rhinitis, cause unspecified Esophageal reflux Overview: EGD 07/2008 benign gastric polyp Mixed hyperlipidemia Resolved Problems Problem Noted Date Diagnosed Date Resolved Date Osteopenia 06/04/2009 06/04/2009 Esophageal reflux 06/04/2009 06/04/2009 Overview: hx hiatal hernia Acute tracheobronchitis 03/04/200905/17 Influenza 03/04/2009 06/04/2009 Unspecified hearing loss 02/06/2009 Disorder of bone and cartilage, unspecified 06/04/2009 Depressive disorder, not elsewhere classified 08/26/2009 Immunizations Name Administration Dates Next Due AMB Influenza, IIV3 (Age >=3 years)(Flu Clinic Only) 03/08/2008 Influenza A (H1N1), Inactiva debo (Age >=3 Years) 04/11/2009 Influenza, IIV3 (Age >=3 years) 02/06/2009,03/21,03/17/2006 Pneumococcal Poly,23-Valent (Pneumovax) 02/09/20 07 Family History Medical History Relation Name Comments Asthma Daughter 1 Asthma Daughter 2 Other Father of old age @95 Other Mother of old age @ 92 Relation Name Status Comments Brother 1 Alive Brother 2 Alive Daughter 1 Daughter 2 Father (Age 95) Mother (Age 92) Sister Alive Social History Tobacco Use Types Packs/Day Years Used Date Smoking Tobacco: Never Smokeless Tobacco: Never Tobacco Cessation:Counseling Given: Yes Alcohol Use Standard Drinks/Week Comments No 0 (1 standard drink = 0.6 oz pur e alcohol) Social Connections Answer Date Recorded Frequency of Communication with Friends and Fami ly Not on file 01/04/2023 Sex and Gender Information Value Date Recorded Sex Assigned at Not on file Gender Identity Not on file Sexual Orientation Not on file Obstetrics History Para Term AB IAB SAB Ectopic Multiple Livin g Live Births 2 2 2 Date Outcome GA Total Labor Labor/2nd/3rd Weight Sex Delivery Anes PTL Stephanie A1 A5 Name Cl in Para Para Last Filed Vital Signs Vital Sign Reading Time Taken Comments Blood Pressure 113/56 01/06/2023 10:37 AM CDT Pulse 76 01/06/2023 10:37 AM CDT Temperature 36.4 ??C (97.6 ??F) 01/06/2023 7:27 AM CD T Respiratory Rate 16 01/06/2023 10:37 AM CDT Oxygen Saturation 95% 01/06/2023 7:27 AM CDT Inhaled Oxygen Concentration - - Weight 52.8 kg (116 lb 6.5 oz) 01/06/2023 6:07 A M CDT Height 149 cm (4' 10.66) 01/30/2018 9:12 AM CDT Body Mass Index 23.78 01/30/2018 9:12 AM CDT Plan of Treatment Health Maintenance Due Date Last Done Comments COVID-19 vaccine series (#1) 04/11/1937 Tdap 10/10/1947 Depression screening for age 12+ 1948 Tetanus booster 1956 Zoster (shingles) series for age 50+ (1 of 2) 1986 Pneumococcal series for age 65+ (2 of 2 - PCV) 02/09/2008 02/08/2007 BMI (ht and wt on same day) for age 18+ 01/30/2019 01/30/2018, 08/26/2016 Influenza for age 65+ 01/14/2023 04/11/2009 , 02/06/2009, 03/08/2008, Additional history exists DEXA/DXA scan for age 65+ Completed 2014, 11/28/2009, 11/16/2007 Advance Directives Latest Code Status on File Code Status Date Activated Date Inactivated Comments Full Code 01/05/2023 9:39 AM 01/06/2023 5:35 PM Question Answer Comments Code Status Discussion: Reviewed Preferences Code Status History Code Status Date Activated Date Inactivated Comments Full Code 01/04/2023 5:03 AM 01/05/2023 9:39 AM Question Answer Comments Code Status Discussion: Unable to Assess Preferences, Provider to review later Care Teams Thread Checker Relationship Specialty Start Date End Date Loren Beyer MD [address] [place] [address] PCP - General Family Practice 10/20/16
--- OUTSIDE RECORDS SUMMARY | 2023-07-04 15:28 | XMS_ITS | Encounter Summary ---
Author Name Unknown Organization [facility] Address [address] [facility] [place] [address] Care Team Providers Care Sonar Technician Name Role Phone Loren Beyer MD Primary Care Provider + Encounter Details Date Type Department Care Team (Latest Contact Info) Description 02/25/2023 Travel Social History Tobacco Use Types Packs/Day Years Used Date Smoking Tobacco: Never Smokeless Tobacco: Never Alcohol Use Standard Drinks/Week Comments No 0 (1 standard drink = 0.6 oz pur e alcohol) PHQ-2 Answer Date Recorded PHQ-2 Score 0 02/25/2023 Adolescent Education Answer Date Record ed Getting School Help Needed Not on file 02/18 Sex and Gender Information Value Date Recorded Sex Assigned at Not on file Gender Identity Not on file Sexual Orientation Not on file documented as of this encounter Plan of Treatment Upcoming Encounters Date Type Department Care Team (Late st Contact Info) Description 07/15/2023 9:15 AM HEAD TURNING MACHINE OPERATOR Office Visit [facility] [id number] [place] [address] [address] [place] [address] Sakina Osborne E, PRODUCT SAFETY PROFESSIONAL COMPUTER SYSTEMS ENGINEER [address] [place] [id number] Meenu Denis DO [address] [place] [id number] documented as of this encounter Visit Diagnoses Not on filedocumented in this encounter Care Teams Sonar Technician Relationship Specialty Start Date End Date Loren Beyer MD [facility] & [address] [address] PCP - General Family Practice 11/15/17 documented as of this encounter
--- OUTSIDE RECORDS SUMMARY | 2023-07-04 15:28 | XMS_ITS | Clinical Summary ---
Author Name Unknown Organization [place] Address [address] [facility] [place] [address] Care Team Providers Care Bit Bender Name Role Phone Loren Beyer MD Primary Care Provider + Sakina Osborne APRN PROGRAM HOST Unavailable [phone] Allergies Active Allergy Reactions Criticality Noted Date Comments Alendronate 07/03/2014 Animal Dander 01/22/2013 Asthma Aspirin 01/22/2013 Doesn't tolerate because of asthma Atorvastatin 01/22/2013 Stiff neck and neck pain Calcitonin 07/03/2014 Codeine Unknown 07/01/2014 Hallucinations Rosuvastatin Other (See Comments) 02/28/2023 Dizziness, fogginess, increased fatigue, shortness of breath Food High 01/22/2013 Any contact with peas, even odor, causes throat to swell shut. Spicy and acidic foods cause GERD Fosamax 01/22/2013 Hydromorphone Other (See Comments) 07/03/2014 Mental changes Lisinopril Itching 07/03/2014 Loratadine 01/22/2013 Stays awake for 40 hours after 1/4 tablet Loratadine 07/03/2014 Lorazepam Other (See Comments) 07/03/2014 confusion Oxycodone 01/22/2013 Hallucinations and confusion Penicillins Swelling High 01/22/2013 Head swells; asthma flares up Perfume 01/22/2013 Asthma Petrolatum, Hydrophilic Rash Low 01/22/2013 Petroleum based salves and lotions cause rash Pollen Extract 01/22/2013 asthma Smoke. 01/22/2013 Asthma Sulfa Antibiotics Shortness Of Breath,Swelling High 01/22/2013 asthma flares up Wool Fiber 01/22/2013 asthma Medications Medication Sig Dispensed Refills Start Date End Date Status albuterol (PROAIR HFA, PROVENTIL HFA, VENTOLIN HFA) 108 (90 BASE) MCG/ACT inhaler Inhale 2 puffs into the lungs 2 times daily 0 Active calcium-vitamin D (CALTRATE) 600-400 MG-UNIT per tablet Take 1 tablet by mouth daily 0 Active multivitamin, therapeutic with minerals (MULTI-VITAMIN) TABS Take 1 tablet by mouth daily 0 Active PREDNISONE PO 20 mg for 5 days, then 10 mg for 5 days, then 10 mg every other day for 5 days - for asthma flareup - PRN 0 Active clopidogrel (PLAVIX) 75 MG tablet Take 75 mg by mouth 0 01/06/2023 Act cole ezetimibe (ZETIA) 10 MG tablet Take 1 tablet by mouth daily 0 01/06/2023 Active metoprolol succinate ER (TOPROL XL) 25 MG 24 hr tablet Take 25 mg by mouth daily 0 01/06/2023 Active nitroGLYcerin (NITROSTAT) 0.[address] 0.4 mg under the tongue every 5 minutes as needed 0 Active polyethylene glycol-propylene glycol (SYSTANE) 0.4-0.3 % SOLN ophthalmic solution Place 1 drop into both eyes 4 times daily 0 Active cloNIDine (CATAPRES) 0.1 MG tablet Take 0.05 mg by mouth 2 times daily Pt takes 1/2 tablet (0.05 mg) BID (AM & PM) and an additional 1/2 tablet (0.05 mg) PRN 0 01/27/2023 Active predniSONE (DELTASONE) 5 MG tablet Take 5 mg by mouth every morning 0 12/20/2022 Active sertraline (ZOLOFT) 50 MG tablet Take 50 mg by mouth every evening 0 02/09/2023 Active levothyroxine (SYNTHROID/LEVOTHROID ) 25 MCG tablet Take 25 mcg by mouth every morning 0 12/20/2022 Active losartan (COZAAR) 25 MG tablet Take 25 mg by mouth 2 times daily 0 Active LORazepam (ATIVAN) 0.5 MG tablet Take 0.5 mg by mouth as needed 0 04/30/2022 Active FLOVENT HFA 110 MCG/ACT inhaler Inhale 2 puffs into the lungs 2 times daily 0 02/21/2023 Active calcium carbonate (TUMS) 500 MG chewable tablet Take 500 mg by mouth as needed for heartburn 0 Active omeprazole (PRILOSEC) [address] capsule Take 40 mg by mouth 2 times daily 0 Active UNABLE TO FIND Lactace With Dairy Products 0 Active chlorpheniramine (CHLOR-TRIMETON) 4 MG tablet Take 4 mg by mouth 0 02/23/2022 Active sodium chloride (OCEAN) 0.65 % nasal spray .prn 0 01/28/2022 Active artificial tears (GENTEAL) 0.1-0.2-0.3 % ophthalmic solution 1 drop daily as needed for dry eyes 0 Active Active Problems Problem Noted Date Diagnosed Date Severe asthma 03/04/2023 Gastroesophageal reflux disease without esophagi tis 03/04/2023 Hypothyroidism 03/04/2023 Depression 03/04/2023 PTSD (post-traumatic stress disorder) 03/04/2023 Osteoporosis 03/04/2023 Benign essential hypertension 03/04/2023 Hyponatremia 03/04/2023 Chronic eczema 03/04/2023 Anxiety 03/04/2023 Diet-controlled diabetes mellitus 03/04/2023 Gastroparesis 03/04/2023 Hyperlipidemia 03/04/2023 Anemia 03/04/2023 Diverticulosis 03/04/2023 Post herpetic neuralgia 03/04/2023 Deviated nasal septum 03/04/2023 Hiatal hernia 03/04/2023 Gall stones 03/04/2023 Deafness in right ear 03/04/2023 Ischemic cardiomyopathy 03/04/2023 ST elevation myocardial infa rction involving left anterior descending (LAD) coronary artery 01/04/2023 Chronic systolic congestive heart failure 2022 Resolved Problems Problem Noted Date Diagnosed Date Resolved Date 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 3 Encounters Date Type Department Care Team Description 05/02/2023 11:00 AM SHIP LOADER Office Visit [address] [address] Brian Abreu MD Smith, June E, RISK COMPLIANCE ANALYST PROGRAM HOST Coronary artery disease involving [place] coronary artery of [place] heart without angina pectoris (Primary Dx); Chronic systolic heart failure (H) 05/02/2023 9:45 AM SHIP LOADER Lab [facility] [address] [place] [phone] Chronic systolic congestive heart failure (H); Ischemic cardiomyopathy; SOB (shortness of breath) 05/02/2023 Travel from Last 3 Months Social History Tobacco Use Types Packs/Day Years Used Date Smoking Tobacco: Never Smokeless Tobacco: Never Tobacco Cessation:Counseling Given: Not Answered Alcohol Use Standard Drinks/Week Comments No 0 (1 standard drink = 0.6 oz pur e alcohol) PHQ-2 Answer Date Recorded PHQ-2 Score 0 02/25/2023 Adolescent Education Answer Date Record ed Getting School Help Needed Not on file 02/18 Sex and Gender Information Value Date Recorded Sex Assigned at Not on file Gender Identity Not on file Sexual Orientation Not on file Last Filed Vital Signs Vital Sign Reading Time Taken Comments Blood Pressure 138/88 05/02/2023 10:56 AM SHIP LOADER Pulse 75 05/02/2023 10:56 AM SHIP LOADER Temperature 36.3 ??C (97.4 ??F) 02/02/2013 7:50 AM CD T Respiratory Rate 27 11/25/2017 9:21 AM CDT Oxygen Saturation 98% 05/02/2023 10:56 AM SHIP LOADER Inhaled Oxygen Concentration - - Weight 50.8 kg (112 lb) 05/02/2023 10:56 AM SHIP LOADER Height 147.3 cm (4' 10) 05/02/2023 10:56 AM SHIP LOADER Body Mass Index 23.41 05/02/2023 10:56 AM SHIP LOADER Plan of Treatment Upcoming Encounters Date Type Department Care Team (Late st Contact Info) Description 07/15/2023 9:15 AM SHIP LOADER Office Visit [facility] [address] [place] [phone] Sakina Osborne, RISK COMPLIANCE ANALYST PROGRAM HOST [address] [place] [id number] Meenu Denis DO [address] [place] [id number] Health Maintenance Due Date Last Done Comments A1C 1936 ADVANCE CARE PLANNING 1936 ANNUAL REVIEW OF HM ORDERS 1936 ASTHMA ACTION PLAN 1936 ASTHMA CONTROL TEST 1936 DIABETIC FOOT EXAM 1936 EYE EXAM 1936 HF ACTION PLAN 1936 MICROALBUMIN 1936 TSH W/FREE T4 REFLEX 1936 DTAP/TDAP/TD IMMUNIZATION (1 - Tdap) 1961 ZOSTER IMMUNIZATION (1 of 2) 1986 RSV VACCINE ( & 60+) (1 - 1-dose 60+ series) 1996 FALL RISK ASSESSMENT 2001 MEDICARE ANNUAL WELLNESS VISIT 2001 PHQ-2 (once per calendar year) 2023 02/25/2023 BMP 11/01/2023 05/02/2023, 01/14, 01/29/2013 ALT 01/25/2024 01/24/2023, 01/29/2013 CBC 01/25/2024 01/24/2023, 01/14, 01/29/2013 LIPID 01/25/2024 01/24/2023 Pneumococcal Vaccine: 65+ Years Completed 06/16/2017, 09/05/2014, 02/08/2007, Additional history exists INFLUENZA VACCINE Completed 02/18/2023, , 02/27/2021, Additional history exists COVID-19 Vaccine Completed 03/17/2023, 12/2021, 03/19/2021, Additional history exists HPV IMMUNIZATION Aged Out No longer e ligible based on patient's age to complete this topic IPV IMMUNIZATION Aged Out No longer e ligible based on patient's age to complete this topic MENINGITIS IMMUNIZATION Aged Out No l onger eligible based on patient's age to complete this topic RSV MONOCLONAL ANTIBODY Aged Out No l onger eligible based on patient's age to complete this topic Medical Devices Implanted Type Area Atomic Welder Device Identifier Shelf Expiration Date Model / Serial / Lot Humeral Bearing Standard 44-36mm Implanted:Qty: 1 on 01/30/2013 by Jc Farr MD at [facility] Right: Shoulder 10/12/2017 [id number] / / [id number] Procedures Procedure Name Priority Date/Time Associated Diagnosis Comments N TERMINAL PRO BNP OUTPATIENT Routine 05/02/2023 9:54 AM SHIP LOADER SOB (shortness of breath) BASIC METABOLIC PANEL Routine 05/02/2023 9:54 AM SHIP LOADER Chronic systolic congestive heart failure (H) Ischemic cardiomyopathy from Last 3 Months Results * N terminal pro BNP outpatient (05/02/2023 9:54 AM SHIP LOADER) N Terminal Pro BNP Outpatient 346 0 - 1,800 pg/mL 05/02/2023 11:00 AM SHIP LOADER [facility] Comment: Reference range shown and results flagged as abnormal are for the outpatient, non acute settings. Establishing a baseline value for each individual patient is useful for follow-up. Suggested inpatient cut points for confirming diagnosis of CHF in an acute setting are: >450 pg/mL (age 18 to less than 50) >900 pg/mL (age 50 to less than 75) >1800 pg/mL (75 yrs and older) An inpatient or emergency department NT-proPBNP <300 pg/mL effectively rules out acute CHF, with 99% negative predictive value. Blood STRUCTURE OF LEFT UPPER LIMB / Unknown Venipuncture / Unknown 05/02/2023 9:54 AM SHIP LOADER 05/02/2023 9:54 AM SHIP LOADER Brian Abreu MD LAB - BLOOD ORDERABL ES [facility] Acute Care Lab [address] Lab (1st floor, no room number) [place] [address], [facility] [phone] * (ABNORMAL) Basic metabolic panel (05/02/2023 9:54 AM SHIP LOADER) Sodium 141 135 - 145 mmol/L 05/02/2023 10:57 AM SHIP LOADER [facility] Comment:Reference intervals for this test were updated on 02/08/2023 to more accurately reflect our healthy population. There may be differences in the flagging of prior results with similar values performed with this method. Interpretation of those prior results can be made in the context of the updated reference intervals. Potassium 4.6 3.4 - 5.3 mmol/L 05/02/2023 10:57 AM [facility] Chloride 102 98 - 107 mmol/L 05/02/2023 10:57 AM [facility] Carbon Dioxide (CO2) 30(H) 22 - 29 mmol/L 05/02/2023 10:57 AM [facility] Anion Gap 9 7 - 15 mmol/L 05/02/2023 10:57 AM [facility] Urea Nitrogen 16.5 8.0 - 23.0 mg/dL 05/02/2023 10:57 AM [facility] Creatinine 0.89 0.51 - 0.95 mg/dL 05/02/2023 10:57 AM [facility] GFR Estimate 63 >60 mL/min/1. 73m2 05/02/2023 10:57 AM [facility] Calcium 9.3 8.8 - 10.2 mg/dL 05/02/2023 10:57 AM [facility] Glucose 165(H) 70 - 99 mg/dL 05/02/2023 10:57 AM [facility] Blood STRUCTURE OF LEFT UPPER LIMB / Unknown Venipuncture / Unknown 05/02/2023 9:54 AM SHIP LOADER 05/02/2023 9:54 AM SHIP LOADER Brian Abreu MD LAB - BLOOD ORDERABL ES LABORATORY [facility] Acute Care Lab [address] [facility] Lab (1st floor, no room number) [place] [address], [facility] [phone] from Last 3 Months Advance Directives For more information, please contact: [phone] Latest Code Status on File Code Status Date Activated Date Inactivated Comments DNR/DNI 01/30/2013 12:12 PM 02/02/2013 12:40 PM Care Teams Bit Bender Relationship Specialty Start Date End Date Loren Beyer MD [facility] [address] [place] [address] PCP - General Family Practice 11/15/17 Sakina Osborne, RISK COMPLIANCE ANALYST PROGRAM HOST [address] [place] [address] Assigned Heart and Vascular Provider 05/07/23
--- OUTSIDE RECORDS SUMMARY | 2023-07-04 15:28 | XMS_ITS | Encounter Summary ---
Author Name Unknown Organization [place] Address [address] [facility] [place] [address] Care Team Providers Care Professor Of Literacy Name Role Phone Loren Beyer MD Primary Care Provider + Brian Abreu MD Unavailable Reason for Visit * Reason Comments C[facility] Clinic Care Coordination - Follow-up Encounter Details Date Type Department Care Team (Latest Contact Info) Description 04/01/2023 Care Coordination [facility] [address] [place] [address] Marisa Sandra RN CORE; Clinic Care Coordination - Follow-up Social History Tobacco Use Types Packs/Day Years [...] documented as of this encounter Progress Notes * Marisa Sandra RN - 04/01/2023 3:42 PM CST Called pt w/results of Echo 03/31/23 - BP elevated - noted CORE RN outreach med reconciliation note. See full note per HEENA Moore - 02/28/[address] Abrue for review of meds and BP as he was awaiting confirmation of pt's current med program. Marisa Sandra RN on 04/01/2023 at 3:44 PM Echocardiogram Complete Interpretation Summary BP: 190/75 mmHg. Normal left ventricular wall thickness. Left ventricular systolic function is normal. The visual ejection fraction is 60-65%. Grade 1 left ventricular diastolic function. No regional wall motion abnormalities. Normal right ventricular size and systolic function. No significant valve disease. Normal inferior vena cava. There is no comparison study available. T NURSE MANAGER * Marisa Sandra RN - 04/01/2023 3:42 PM CST Images from the original note were not included. Called pt w/Dr. Abreu's comments on her Echo 03/31/23 Pt states her BP is well-controlled at home, she states her BP was abnormally elevated at the time of her Echocardiogram. Pt reports home BP 126-136 systolic. Pt states she sees her PCP often and will see her as needed but at this time pt states her BP is fine. Pt reminded me she will not be seeingDr. Abreu going forward. She plans to see GHAZAL Wagner, on 04/26/23 as scheduled and then will change to Dr. Denis for a Wood Machinist Apprentice after that. Marisa Sandra RN on 04/06/2023 at 1:36 PM Brian Abreu MD You45 minutes ago (12:39 PM) KV I cannot see the patient's medications. I believe she is on metoprolol clonidine and losartan. EF has normalized. Please alert PCP for hypertension. Keep appointment with cardiology GILBERT. Note T NURSE MANAGER documented in this encounter Miscellaneous Notes * Telephone Encounter - Brian Abreu MD - 04/06/2023 12:39 PM CST I cannot see the patient's medications. I believe she is on metoprolol clonidine and losartan. EF has normalized. Please alert PCP for hypertension. Keep appointment with cardiology GILBERT. T NURSE MANAGER documented in this encounter Plan of Treatment Upcoming Encounters Date Type Department Care Team (Late st Contact Info) Description 07/15/2023 9:15 AM SHIFT NURSE MANAGER Office Visit [facility] [address] [place] [phone] Sakina Osborne, CUT OUT WORKER DUCT LAYER HELPER [address] [place] [phone] Meenu Denis DO [address] [place] [address] documented as of this encounter Visit Diagnoses Not on filedocumented in this encounter Care Teams Professor Of Literacy Relationship Specialty Start Date End Date Loren Beyer MD [facility] & [address] [address] PCP - General Family Practice 11/15/17 Brian Abreu MD [address] [place] [address] [place] [id number] Assigned Heart and Vascular Provider 02/26/23 05/06/23 documented as of this encounter
--- OUTSIDE RECORDS SUMMARY | 2023-07-04 15:28 | XMS_ITS | Encounter Summary ---
Author Name Unknown Organization [place] Address [address] [facility] [place] [address] Care Team Providers Care Dispatcher Chief Coal Slurry Name Role Phone Loren Beyer MD Primary Care Provider + Brian Abreu MD Unavailable Encounter Details Date Type Department Care Team (Latest Contact Info) Description 05/02/2023 Travel Social History Tobacco Use Types Packs/Day [...] st Contact Info) Description 07/15/2023 9:15 AM TAMALE MACHINE FEEDER Office Visit [facility] [address] [place] [address] Sakina Osborne, SALVAGE GRINDER CAKE WRAPPER [address] [place] [address] Meenu Denis DO [address] [place] [address] documented as of this encounter Visit Diagnoses Not on filedocumented in this encounter Care Teams Dispatcher Chief Coal Slurry Relationship Specialty Start Date End Date Loren Beyer MD [facility] & [address] [address] PCP - General Family Practice 11/15/17 Brian Abreu MD [address] [facility] [address] [place] [address] Assigned Heart and Vascular Provider 02/26/23 05/06/23 documented as of this encounter
--- OUTSIDE RECORDS SUMMARY | 2023-07-04 15:28 | XMS_ITS | Encounter Summary ---
Author Name Unknown Organization [place] Address [address] [facility] [place] [address] Care Team Providers Care Slitter Scorer Name Role Phone oLren Beyer MD Primary Care Provider + Brian Abreu MD Unavailable Encounter Details Date Type Department Care Team (Latest Contact Info) Description 03/31/2023 Travel Social History Tobacco Use Types Packs/Day [...] st Contact Info) Description 07/15/2023 9:15 AM OFFICE SERVICE COORDINATOR Office Visit [facility] [address] [place] [address] Sakina Osborne, BELLSTAFF AUTO DAMAGE ADJUSTER [address] [place] [address] Meenu Denis DO [address] [place] [address] documented as of this encounter Visit Diagnoses Not on filedocumented in this encounter Care Teams Slitter Scorer Relationship Specialty Start Date End Date Loren Beyer MD [facility] & [address] [address] PCP - General Family Practice 11/15/17 Brian Abreu MD [address] [facility] [address] [place] [address] Assigned Heart and Vascular Provider 02/26/23 05/06/23 documented as of this encounter
--- OUTSIDE RECORDS SUMMARY | 2023-07-04 15:28 | XMS_ITS | Encounter Summary ---
Author Name Unknown Organization [place] Address [address] [facility] [place] [address] Care Team Providers Care Glove Parts Inspector Name Role Phone Loren Beyer MD Primary Care Provider + Encounter Details Date Type Department Care Team (Latest Contact Info) Description 02/23/2023 Travel Social History Tobacco Use Types Packs/Day Years Used Date Smoking Tobacco: Never Smokeless Tobacco: Never Alcohol Use Standard Drinks/Week Comments No 0 (1 standard drink = 0.6 oz pur e alcohol) Adolescent Education Answer Date Record ed Getting School Help Needed Not on file 02/18 Sex and Gender Information Value Date Recorded Sex Assigned at Not on file Gender Identity Not on file Sexual Orientation Not on file documented as of this encounter Plan of Treatment Upcoming Encounters Date Type Department Care Team (Late st Contact Info) Description 07/15/2023 9:15 AM DIRECTOR OF FINANCIAL PLANNING Office Visit [facility] [address] [place] [address] Sakina Osborne E, RETAIL BUSINESS MANAGER ASSISTANT TRACK AND FIELD COACH [address] [place] [phone] Meenu Denis DO [address] [place] [phone] documented as of this encounter Visit Diagnoses Not on filedocumented in this encounter Care Teams Glove Parts Inspector Relationship Specialty Start Date End Date Loren Beyer MD [facility] & [place] [id number] PCP - General Family Practice 11/15/17 documented as of this encounter
--- OUTSIDE RECORDS SUMMARY | 2023-07-04 15:28 | XMS_ITS | Encounter Summary ---
Author Name Unknown Organization [place] Address [address] [facility] [place] [address] Care Team Providers Care Director Utilization Management Name Role Phone Loren Beyer MD Primary Care Provider + Brian Abreu MD Unavailable Encounter Details Date Type Department Care Team (Late st Contact Info) Description 05/02/2023 9:45 AM CUSTOM SHOEMAKER Lab [address] [place] [address] Chronic systolic congestive heart failure (H); Ischemic cardiomyopathy; SOB (shortness of breath) Social History Tobacco Use Types Packs/Day Years [...] st Contact Info) Description 07/15/2023 9:15 AM CUSTOM SHOEMAKER Office Visit [facility] [address] [facility] [address] [place] [address] Sakina Osborne E, SUPERVISOR METER SHOP CHAIR INSPECTOR [address] [place] [address] Meenu Denis, [address] [place] [address] documented as of this encounter Procedures Procedure Name Priority Date/Time Associated Diagnosis Comments N TERMINAL PRO BNP OUTPATIENT Routine 05/02/2023 9:54 AM CUSTOM SHOEMAKER SOB (shortness of breath) BASIC METABOLIC PANEL Routine 05/02/2023 9:54 AM CUSTOM SHOEMAKER Chronic systolic congestive heart failure (H) Ischemic cardiomyopathy documented in this encounter Results * N terminal pro BNP outpatient (05/02/2023 9:54 AM CUSTOM SHOEMAKER) N Terminal Pro BNP Outpatient 346 0 - 1,800 pg/mL 05/02/2023 11:00 AM CUSTOM SHOEMAKER LABORATORY Comment: Reference range shown and results [...] Unknown Venipuncture / Unknown 05/02/2023 9:54 AM CUSTOM SHOEMAKER 05/02/2023 9:54 AM CUSTOM SHOEMAKER Brian Abreu MD LAB - BLOOD ORDERABL ES [facility] Acute Care Lab [address] Lab (1st floor, no room number) [place] [address], [place] [phone] * (ABNORMAL) Basic metabolic panel (05/02/2023 9:54 AM CUSTOM SHOEMAKER) Pathologist [facility] Sodium 141 135 - 145 mmol/L 05/02/2023 10:57 AM [facility] Comment:Reference intervals for this test were updated on 02/08/2023 to more accurately reflect our healthy population. There may be differences in the flagging of prior results with similar values performed with this method. Interpretation of those prior results can be made in the context of the updated reference intervals. Potassium 4.6 3.4 - 5.3 mmol/L 05/02/2023 10:57 AM [facility] Chloride 102 98 - 107 mmol/L 05/02/2023 10:57 AM [facility] Carbon Dioxide (CO2) 30(H) 22 - 29 mmol/L 05/02/2023 10:57 AM [facility] Anion Gap 9 7 - 15 mmol/L 05/02/2023 10:57 AM [facility] Urea Nitrogen 16.5 8.0 - 23.0 mg/dL 05/02/2023 10:57 AM [facility] Creatinine 0.89 0.51 - 0.95 mg/dL 05/02/2023 10:57 AM [facility] GFR Estimate 63 >60 mL/min/1. 73m2 05/02/2023 10:57 AM [facility] Calcium 9.3 8.8 - 10.2 mg/dL 05/02/2023 10:57 AM [facility] Glucose 165(H) 70 - 99 mg/dL 05/02/2023 10:57 AM [facility] Blood STRUCTURE OF LEFT UPPER LIMB / Unknown Venipuncture / Unknown 05/02/2023 9:54 AM CUSTOM SHOEMAKER 05/02/2023 9:54 AM [facility] Brian Abreu MD LAB - BLOOD ORDERABL ES LABORATORY [facility] Acute Care Lab [address] Lab (1st floor, no room number) [place] [address], [facility] [phone] documented in this encounter Visit Diagnoses Diagnosis Chronic systolic congestive heart failure (H) Chronic systolic heart failure Ischemic cardiomyopathy Other specified forms of chronic ischemic heart disease SOB (shortness of breath) Shortness of breath documented in this encounter Care Teams Director Utilization Management Relationship Specialty Start Date End Date Loren Beyer MD [facility] [address] [place] [address] PCP - General Family Practice 11/15/17 Brian Abreu MD [address] [facility] [address] [place] [address] Assigned Heart and Vascular Provider 02/26/23 05/06/23 documented as of this encounter
--- OUTSIDE RECORDS SUMMARY | 2023-07-04 15:28 | XMS_ITS | Referral Summary ---
Author Name Unknown Organization [facility] Address [address] 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); Chronic systolic heart failure (H) 05/02/2023 9:45 AM TENTS ASSEMBLER Lab [facility] [address] [facility] [address] [place] [phone] Chronic systolic congestive heart failure (H); Ischemic cardiomyopathy; SOB (shortness of breath) from Last 3 Months Allergies Active Allergy Reactions Criticality Noted Date [...] Date Resolved Date 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 3 Social History Tobacco Use Types Packs/Day Years [...] Comments Blood Pressure 138/88 05/02/2023 10:56 AM TENTS ASSEMBLER Pulse 75 05/02/2023 10:56 AM TENTS ASSEMBLER Temperature 36.3 ??C (97.4 ??F) 02/02/2013 7:50 AM CD T Respiratory Rate 27 11/25/2017 9:21 AM CDT Oxygen Saturation 98% 05/02/2023 10:56 AM TENTS ASSEMBLER Inhaled Oxygen Concentration - - Weight 50.8 kg (112 lb) 05/02/2023 10:56 AM TENTS ASSEMBLER Height 147.3 cm (4' 10) 05/02/2023 10:56 AM TENTS ASSEMBLER Body Mass Index 23.41 05/02/2023 10:56 AM TENTS ASSEMBLER Plan of Treatment Upcoming Encounters Date Type Department Care Team (Late st Contact Info) Description 07/15/2023 9:15 AM TENTS ASSEMBLER Office Visit [facility] Heart [facility] [address] [facility] [address] [place] [phone] Sakina Osborne, BICYCLE FITTER WELDER EXPERIMENTAL [address] [place] [id number] Meenu Denis DO [address] [place] [id number] Medical Devices Implanted Type Area Branch Sales And Service Representative Device Identifier Shelf Expiration Date Model / Serial / Lot Humeral Bearing Standard 44-36mm Implanted:Qty: 1 on 01/30/2013 by Jc Farr MD at [facility] Right: Shoulder 10/12/2017 [id number] / / [id number] Procedures Procedure Name Priority Date/Time Associated Diagnosis Comments N TERMINAL PRO BNP OUTPATIENT Routine 05/02/2023 9:54 AM TENTS ASSEMBLER SOB (shortness of breath) BASIC METABOLIC PANEL Routine 05/02/2023 9:54 AM TENTS ASSEMBLER Chronic systolic congestive heart failure (H) Ischemic cardiomyopathy from Last 3 Months Results * N terminal pro BNP outpatient (05/02/2023 9:54 AM TENTS ASSEMBLER) Pathologist [facility] N Terminal Pro BNP Outpatient 346 [id number] - 1,800 pg/mL 05/02/2023 11:00 AM TENTS ASSEMBLER LABORATORY Comment: Reference range shown and results [...] Unknown Venipuncture / Unknown 05/02/2023 9:54 AM TENTS ASSEMBLER 05/02/2023 9:54 AM TENTS ASSEMBLER Brian Abreu MD LAB - BLOOD ORDERABL ES LABORATORY [facility] [address] [facility] Lab (1st floor, no room number) [place] [address], [facility] [phone] * (ABNORMAL) Basic metabolic panel (05/02/2023 9:54 AM TENTS ASSEMBLER) Pathologist [facility] Sodium 141 135 - 145 mmol/L 05/02/2023 10:57 AM [facility] Comment:Reference intervals for this test were updated on 02/08/2023 to more accurately reflect our healthy population. There may be differences in the flagging of prior results with similar values performed with this method. Interpretation of those prior results can be made in the context of the updated reference intervals. Potassium 4.6 3.4 - 5.3 mmol/L 05/02/2023 10:57 AM [facility] Chloride 102 98 - 107 mmol/L 05/02/2023 10:57 AM [facility] Carbon Dioxide (CO2) 30(H) 22 - 29 mmol/L 05/02/2023 10:57 AM [facility] Anion Gap 9 7 - 15 mmol/L 05/02/2023 10:57 AM [facility] Urea Nitrogen 16.5 8.0 - 23.0 mg/dL 05/02/2023 10:57 AM [facility] Creatinine 0.89 0.51 - 0.95 mg/dL 05/02/2023 10:57 AM [facility] GFR Estimate 63 >60 mL/min/1. 73m2 05/02/2023 10:57 AM [facility] Calcium 9.3 8.8 - 10.2 mg/dL 05/02/2023 10:57 AM [facility] Glucose 165(H) 70 - 99 mg/dL 05/02/2023 10:57 AM [facility] Blood STRUCTURE OF LEFT UPPER LIMB / Unknown Venipuncture / Unknown 05/02/2023 9:54 AM TENTS ASSEMBLER 05/02/2023 9:54 AM TENTS ASSEMBLER Brian Abreu MD LAB - BLOOD ORDERABL ES LABORATORY [facility] [address] Lab (1st floor, no room number) [place] [address], [facility] [phone] from Last 3 Months Advance Directives For more information, please contact: [phone] Latest Code Status on File Code Status Date Activated Date Inactivated Comments DNR/DNI 01/30/2013 12:12 PM 02/02/2013 12:40 PM Care Teams Jockey Agent Relationship Specialty Start Date End Date Loren Beyer MD [facility] [address] [place] [address] PCP - General Family Practice 11/15/17 Sakina Osborne, BICYCLE FITTER WELDER EXPERIMENTAL [address] [place] [id number] Assigned Heart and Vascular Provider 05/07/23
--- OUTSIDE RECORDS SUMMARY | 2023-07-04 15:28 | XMS_ITS | Encounter Summary ---
Author Name Unknown Organization [place] Address [address] [facility] [place] [address] Care Team Providers Care Gis Mapping Technician Name Role Phone Loren Beyer MD Primary Care Provider + Brian Abreu MD Unavailable Reason for Referral * CV Testing (Routine) - Closed Specialty Diagnoses / Procedures Referred By Contac t Referred To Contact Cardiology Diagnoses Chronic systolic heart failure (H) Procedures Echocardiogram Complete ZZHC TTE W/DOPPLER, COMPLETE ZZHC ECHO COMPLETE W DOPPLER W CONTRAST ZZHC ECHO COMPLETE W DOPPLER W/O CONTRAST ZZHC IV PUSH SINGLE, INITIAL SUBSTANCE ZZHC US GUIDE FOR PERICARDIOCENTESIS ZZHC ECHO MYOCARD BX ZZC INJECTION, PERFLUTREN LIPID MICROSPHERES, PER ML ZZHC STATISTIC IV PUSH SINGLE INITIAL SUBSTANCE SC ECHO MYOCARD BX SC INJECTION, PERFLUTREN LIPID MICROSPHERES, PER ML SC TTE W/DOPPLER, COMPLETE SC IV PUSH SINGLE, INITIAL SUBSTANCE SC TTE W/DOPPLER, COMPLETE SC TTE W/DOPPLER, COMPLETE HC US GUIDE FOR PERICARDIOCENTESIS HC ECHO MYOCARD BX HC IV PUSH SINGLE, INITIAL SUBSTANCE HC STATISTIC IV PUSH SINGLE INITIAL SUBSTANCE HC ECHO COMPLETE W DOPPLER W CONTRAST HC ECHO COMPLETE W DOPPLER W/O CONTRAST Brian Abreu MD [address] [place] [address] Rh Cv Cardiac Svc Rscc [id number] [facility] [address] [place] [address] Referral ID Status Reason Start Date Expiration Date Visits Re quested Visits Authorized [id number] Closed 03/31/2023 02/25/2024 1 1 NKLER TRUCK DRIVER Reason for Visit * CV Testing (Routine) - Closed Specialty Diagnoses / Procedures Referred By Contac t Referred To Contact Cardiology Diagnoses Chronic systolic heart failure (H) Procedures Echocardiogram Complete ZZHC TTE W/DOPPLER, COMPLETE ZZHC ECHO COMPLETE W DOPPLER W CONTRAST ZZHC ECHO COMPLETE W DOPPLER W/O CONTRAST ZZHC IV PUSH SINGLE, INITIAL SUBSTANCE ZZHC US GUIDE FOR PERICARDIOCENTESIS ZZHC ECHO MYOCARD BX ZZC INJECTION, PERFLUTREN LIPID MICROSPHERES, PER ML ZZHC STATISTIC IV PUSH SINGLE INITIAL SUBSTANCE SC ECHO MYOCARD BX SC INJECTION, PERFLUTREN LIPID MICROSPHERES, PER ML SC TTE W/DOPPLER, COMPLETE SC IV PUSH SINGLE, INITIAL SUBSTANCE SC TTE W/DOPPLER, COMPLETE SC TTE W/DOPPLER, COMPLETE HC US GUIDE FOR PERICARDIOCENTESIS HC ECHO MYOCARD BX HC IV PUSH SINGLE, INITIAL SUBSTANCE HC STATISTIC IV PUSH SINGLE INITIAL SUBSTANCE HC ECHO COMPLETE W DOPPLER W CONTRAST HC ECHO COMPLETE W DOPPLER W/O CONTRAST Brian Abreu MD [address] [place] [address] Rh Cv Cardiac Svc Rscc [id number] [place] [address] Referral ID Status Reason Start Date Expiration Date Visits Re quested Visits Authorized [id number] Closed 03/31/2023 02/25/2024 1 1 Encounter Details Date Type Department Care Team (Latest Contact Info) Description 03/31/2023 10:37 AM SPRINKLER TRUCK DRIVER - 03/31/2023 11:59 PM SPRINKLER TRUCK DRIVER Hospital Encounter [facility] [address] [address] [facility] [address] [place] [address] Brian Abreu MD [address] [place] [address] [place] [id number] Chronic systolic heart failure (H) Discharge Disposition: Home or Self Care Social History Tobacco Use Types Packs/Day Years [...] Dispensed Refills Start Date End Date albuterol (PROAIR HFA, PROVENTIL HFA, VENTOLIN HFA) 108 (90 BASE) MCG/ACT inhaler Inhale 2 puffs into the lungs 2 times daily 0 calcium carbonate (TUMS) 500 MG chewable tablet Take 500 mg by mouth as needed for heartburn 0 calcium-vitamin D (CALTRATE) 600-400 MG-UNIT per tablet Take 1 tablet by mouth daily 0 chlorpheniramine (CHLOR-TRIMETON) 4 MG tablet Take 4 mg by mouth 0 02/23/2022 cloNIDine (CATAPRES) 0.1 MG tablet Take 0.05 mg by mouth 2 times daily Pt takes 1/2 tablet (0.05 mg) BID (AM & PM) and an additional 1/2 tablet (0.05 mg) PRN 0 01/27/2023 clopidogrel (PLAVIX) 75 MG tablet Take 75 mg by mouth 0 01/06/2023 ezetimibe (ZETIA) 10 MG tablet Take 1 tablet by mouth daily 0 01/06/2023 FLOVENT HFA 110 MCG/ACT inhaler Inhale 2 puffs into the lungs 2 times daily 0 02/21/2023 levothyroxine (SYNTHROID/LEVOTHROID) 25 MCG tablet Take 25 mcg by mouth every morning 0 12/20/2022 LORazepam (ATIVAN) 0.5 MG tablet Take 0.5 mg by mouth as needed 0 04/30/2022 losartan (COZAAR) 25 MG tablet Take 25 mg by mouth 2 times daily 0 metoprolol succinate ER (TOPROL XL) 25 MG 24 hr tablet Take 25 mg by mouth daily 0 01/06/2023 multivitamin, therapeutic with minerals (MULTI-VITAMIN) TABS Take 1 tablet by mouth daily 0 nitroGLYcerin (NITROSTAT) 0.[address] 0.4 mg under the tongue every 5 minutes as needed 0 polyethylene glycol-propylene glycol (SYSTANE) 0.4-0.3 % SOLN ophthalmic solution Place 1 drop into both eyes 4 times daily 0 predniSONE (DELTASONE) 5 MG tablet Take 5 mg by mouth every morning 0 12/20/2022 PREDNISONE PO 20 mg for 5 days, then 10 mg for 5 days, then 10 mg every other day for 5 days - for asthma flareup - PRN 0 sertraline (ZOLOFT) 50 MG tablet Take 50 mg by mouth every evening 0 02/09/2023 sodium chloride (OCEAN) 0.65 % nasal spray .prn 0 01/28/2022 CLONIDINE HCL PO Take 0.05 mg by mouth 2 times daily 0 05/02/2023 LUTEIN PO Take 1 tablet by mouth 0 05/02 omeprazole (PRILOSEC) [address] capsule Take 40 mg by mouth 2 times daily 0 07/26/2022 05/02/2023 ondansetron (ZOFRAN ODT) 4 MG ODT tab Take 4 mg by mouth every 6 hours as needed 0 01/27/2023 05/02/2023 documented as of this encounter Plan of Treatment Upcoming Encounters Date Type Department Care Team (Late st Contact Info) Description 07/15/2023 9:15 AM SPRINKLER TRUCK DRIVER Office Visit [facility] [id number] [place] [address] [address] [place] [phone] Sakina Osborne APRN CONSTRUCTION EQUIPMENT OPERATOR [address] [place] [id number] Meenu Denis DO [address] [place] [id number] documented as of this encounter Procedures Procedure Name Priority Date/Time Associated Diagnosis Comments ECHO COMPLETE Routine 03/31/2023 11:27 AM SPRINKLER TRUCK DRIVER Chronic systolic heart failure (H) documented in this encounter Results * ECHO COMPLETE (03/31/2023 11:27 AM SPRINKLER TRUCK DRIVER) LVEF 60-65% CARDIOLOGY RESULTS Anatomical Region Laterality Modality Echocardiography 03/31/2023 10:5 3 AM SPRINKLER TRUCK DRIVER Narrative 03/31/2023 11:54 AM SPRINKLER TRUCK DRIVER [id number]^ANIL^BRIAN [facility] Echocardiography Laboratory [address] [place] [address] Name: FAWAD CELESTE [facility] : 1935 Study Date: 03/31/2023 10:53 AM Age: 87 yrs Gender: Female Patient Location: [facility] Reason For Study: Chronic systolic heart failure (H) Ordering Physician: BRIAN ABREU Referring Physician: BRIAN ABREU Performed By: ANTHONY Wilburn BSA: 1.4 m2 Height: 58 in Weight: 114 lb BP: 190/75 mmHg Procedure Complete Echo Adult. Interpretation Summary BP: 190/75 mmHg. Normal left ventricular wall thickness. Left ventricular systolic function is normal. The visual ejection fraction is 60-65%. Grade 1 left ventricular diastolic function. No regional wall motion abnormalities. Normal right ventricular size and systolic function. No significant valve disease. Normal inferior vena cava. There is no comparison study available. Left Ventricle The left ventricle is normal in size. There is normal left ventricular wall thickness. Left ventricular systolic function is normal. The visual ejection fraction is 60-65%. Grade I or early diastolic dysfunction. No regional wall motion abnormalities noted. Right Ventricle The right ventricle is normal in size and function. Atria Normal left atrial size. Right atrial size is normal. There is no atrial shunt seen. Mitral Valve The mitral valve leaflets appear normal. There is no evidence of stenosis, fluttering, or prolapse. There is trace mitral regurgitation. There is no mitral valve stenosis. Tricuspid Valve Normal tricuspid valve. There is trace tricuspid regurgitation. Right ventricular systolic pressure could not be approximated due to inadequate tricuspid regurgitation. Aortic Valve There is mild trileaflet aortic sclerosis. No aortic regurgitation is present. No aortic stenosis is present. Pulmonic Valve The pulmonic valve is not well seen, but is grossly normal. There is trace pulmonic valvular regurgitation. Normal pulmonic valve velocity. Vessels The aortic root is normal size. Normal size ascending aorta. The inferior vena cava is normal. Pericardium There is no pericardial effusion. Rhythm Sinus rhythm was noted. MMode/2D Measurements & Calculations IVSd: 0.99 cm LVIDd: 3.9 cm LVIDs: 2.6 cm LVPWd: 0.96 cm FS: 34.1 % LV mass(C)d: 119.3 grams LV mass(C)dI: 83.2 grams/m2 Ao root diam: 2.8 cm asc Aorta Diam: 3.1 cm LVOT diam: 2.2 cm LVOT area: 3.7 cm2 Ao root diam index Ht(cm/m): 1.9 Ao root diam index BSA (cm/m2): 2.0 Asc Ao diam index BSA (cm/m2): 2.1 Asc Ao diam index Ht(cm/m): 2.1 LA Volume (BP): 27.4 ml LA Volume Index (BP): 19.2 ml/m2 RV Base: 2.8 cm RWT: 0.49 TAPSE: 2.1 cm Doppler Measurements & Calculations MV E max dajuan: 63.8 cm/sec MV A max dajuan: 96.8 cm/sec MV E/A: 0.66 MV max P.6 mmHg MV mean P.6 mmHg MV V2 VTI: 30.0 cm MV dec slope: 292.4 cm/sec2 MV dec time: 0.22 sec PA V2 max: 69.5 cm/sec PA max P.9 mmHg PA acc time: 0.10 sec E/E' av.3 Lateral E/e': 14.7 Medial E/e': 14.0 RV S Dajuan: 12.2 cm/sec Report approved by: Dr Christiana Stewart 03/31/2023 11:54 AM Procedure Note Christiana Delaney MD - 03/31/2023 [id number]^ANIL^BRIAN [facility] Echocardiography Laboratory [address] [place] [id number] Name: FAWAD CELESTE : 1935 Study Date: 03/31/2023 10:53 AM Age: 87 yrs Gender: Female Patient Location: [facility] Reason For Study: Chronic systolic heart failure (H) Ordering Physician: BRIAN ABREU Referring Physician: BRIAN ABREU Performed By: MATTIE Wilburn BSA: 1.4 m2 Height: 58 in Weight: 114 lb BP: 190/75 mmHg Procedure Complete Echo Adult. Interpretation Summary BP: 190/75 mmHg. Normal left ventricular wall thickness. Left ventricular systolic function is normal. The visual ejection fraction is 60-65%. Grade 1 left ventricular diastolic function. No regional wall motion abnormalities. Normal right ventricular size and systolic function. No significant valve disease. Normal inferior vena cava. There is no comparison study available. Left Ventricle The left ventricle is normal in size. There is normal left ventricularwall thickness. Left ventricular systolic function is normal. The visualejection fraction is 60-65%. Grade I or early diastolic dysfunction. No regionalwall motion abnormalities noted. Right Ventricle The right ventricle is normal in size and function. Atria Normal left atrial size. Right atrial size is normal. There is no atrialshunt seen. Mitral Valve The mitral valve leaflets appear normal. There is no evidence ofstenosis, fluttering, or prolapse. There is trace mitral regurgitation. There isno mitral valve stenosis. Tricuspid Valve Normal tricuspid valve. There is trace tricuspid regurgitation. Right ventricular systolic pressure could not be approximated due toinadequate tricuspid regurgitation. Aortic Valve There is mild trileaflet aortic sclerosis. No aortic regurgitation ispresent. No aortic stenosis is present. Pulmonic Valve The pulmonic valve is not well seen, but is grossly normal. There istrace pulmonic valvular regurgitation. Normal pulmonic valve velocity. Vessels The aortic root is normal size. Normal size ascending aorta. The inferiorvena cava is normal. Pericardium There is no pericardial effusion. Rhythm Sinus rhythm was noted. MMode/2D Measurements & Calculations IVSd: 0.99 cm LVIDd: 3.9 cm LVIDs: 2.6 cm LVPWd: 0.96 cm FS: 34.1 % LV mass(C)d: 119.3 grams LV mass(C)dI: 83.2 grams/m2 Ao root diam: 2.8 cm asc Aorta Diam: 3.1 cm LVOT diam: 2.2 cm LVOT area: 3.7 cm2 Ao root diam index Ht(cm/m): 1.9 Ao root diam index BSA (cm/m2): 2.0 Asc Ao diam index BSA (cm/m2): 2.1 Asc Ao diam index Ht(cm/m): 2.1 LA Volume (BP): 27.4 ml LA Volume Index (BP): 19.2 ml/m2 RV Base: 2.8 cm RWT: 0.49 TAPSE: 2.1 cm Doppler Measurements & Calculations MV E max dajuan: 63.8 cm/sec MV A max dajuan: 96.8 cm/sec MV E/A: 0.66 MV max P.6 mmHg MV mean P.6 mmHg MV V2 VTI: 30.0 cm MV dec slope: 292.4 cm/sec2 MV dec time: 0.22 sec PA V2 max: 69.5 cm/sec PA max P.9 mmHg PA acc time: 0.10 sec E/E' av.3 Lateral E/e': 14.7 Medial E/e': 14.0 RV S Dajuan: 12.2 cm/sec Report approved by: Dr Christiana Stewart 03/31/2023 11:54 AM Brian Abreu MD CV ECHO ORDERABLES documented in this encounter Visit Diagnoses Diagnosis Chronic systolic heart failure (H) Chronic systolic heart failure documented in this encounter Care Teams Gis Mapping Technician Relationship Specialty Start Date End Date Loren Beyer MD [facility] [address] [place] [address] PCP - General Family Practice 11/15/17 Brian Abreu MD [address] [facility] [address] [place] [address] Assigned Heart and Vascular Provider 02/26/23 05/06/23 documented as of this encounter
--- OUTSIDE RECORDS SUMMARY | 2023-07-04 15:28 | XMS_ITS | Encounter Summary ---
Author Name Unknown Organization [place] Address [address] [facility] [place] [address] Care Team Providers Care Blueprint Blocker Name Role Phone Loren Beyer MD Primary Care Provider + Brian Abreu MD Unavailable Reason for Referral * Consultation (Routine: Next available opening) - Pending Review Specialty Diagnoses / Procedures Referred By Contac t Referred To Contact Cardiovascular Disease Diagnoses Coronary artery disease involving [place] coy[place] coronary artery of [place] heart without angina pectoris Sakina Osborne APRN CNP [address] [facility] [address] [place] [address] Referral ID Status Reason Start Date Expiration Date V isits Requested Visits Authorized [id number] Pending Review 05/02/2023 05/01/2024 1 1 Question Answer Preferred Location: [facility] Follow-up with: Other Gis Mapping Technician Martha munoz Scheduling Instructions: [facility] will call you to coordinate your care as prescribed by your provider. If you have concerns about scheduling, please call [phone]. Comments [facility] will call you to coordinate your care as prescribed by your provider. If you have concerns about scheduling, please call [phone]. TRY HATCHERY SUPERVISOR Reason for Visit * Reason Comments FU Cardiac testing Follow up echo * Consultation (Routine: Next available opening) - Pending Review Specialty Diagnoses / Procedures Referred By Lukasz t Referred To Contact Cardiovascular Disease Diagnoses Chronic systolic heart failure (H) Brian Abreu MD [address] [place] [address] Referral ID Status Reason Start Date Expiration Date V isits Requested Visits Authorized [id number] Pending Review 02/25/2023 02/25/2024 1 1 Encounter Details Date Type Department Care Team (Late st Contact Info) Description 05/02/2023 11:00 AM POULTRY HATCHERY SUPERVISOR Office Visit [facility] [address] [facility] [address] [place] [address] Brian Abreu MD [address] [place] [id number] Sakina Osborne E, SCHOLASTIC APTITUDE TEST GRADER WAITER AND CASHIER [address] [place] [id number] Coronary artery disease involving [place] coy[place] coronary artery of [place] heart without angina pectoris (Primary Dx); Chronic systolic heart failure (H) Social History Tobacco Use Types Packs/Day Years [...] Comments Blood Pressure 138/88 05/02/2023 10:56 AM POULTRY HATCHERY SUPERVISOR Pulse 75 05/02/2023 10:56 AM POULTRY HATCHERY SUPERVISOR Temperature - - Respiratory Rate - - Oxygen Saturation 98% 05/02/2023 10:56 AM POULTRY HATCHERY SUPERVISOR Inhaled Oxygen Concentration - - Weight 50.8 kg (112 lb) 05/02/2023 10:56 AM POULTRY HATCHERY SUPERVISOR Height 147.3 cm (4' 10) 05/02/2023 10:56 AM POULTRY HATCHERY SUPERVISOR Body Mass Index 23.41 05/02/2023 10:56 AM POULTRY HATCHERY SUPERVISOR documented in this encounter Patient Instructions * Patient Instructions* Sakina Osborne APRN CNP - 05/02/2023 11:00 AM POULTRY HATCHERY SUPERVISOR Return in [address] Munoz It was a pleasure seeing you today Please do not hesitate to call my nurse team with any questions or concerns: [phone] Scheduling number: [phone] Sakina Osborne APRN, CNP TRY HATCHERY SUPERVISOR documented in this encounter Progress Notes * Skaina Osborne APRN CNP - 05/02/2023 11:00 AM CST HISTORY OF PRESENT ILLNESS: This is a 87 year old female who follows with Dr Abreu at [facility] Her past medical history includes: Coronary artery disease, ischemic cardiomyopathy, hyperlipidemia with a history ofstatin intolerance, diet controlled type II diabetes, hypertension, situational anxiety, arthritis Ms Unger suffered a STEMI (12/2022) treated with stenting x2 to prox-mid LAD and staged stenting to mid- RCA stenting through the [facility] system. Her ECHO then showed LVEF 30-35% with global hypokinesis, normal RV function, and no significant valvular pathology She established care through our clinic in February At that time, she was not complaining of any significant cardiovascular complaints A repeat ECHO and labs were arranged ECHO (03/31/23) showed LVEF 60-65%, grade I diastolic dysfunction, normal RV function, and no significant valvular pathology (BP: 190/75 mmHg) Our visit today is for further review Ms Unger comes in with her today. She has suffered with asthma since her childhood, whichhas been well controlled now for several years. She admits to being fairly sedentary. She denies any chest pain or significant shortness of breath She keeps detailed record of her blood pressures andweights which I reviewed Her BP is mainly staying < 140/90 mmHg and her weights are stable around 110-111 lbs at home She desires to change to a female agriculture specialist and was given recommendation of Dr Munoz by the [facility] nurses. We talked about possibility of adding PCSK9-inhibitor, but states that this will be cost prohibitive We also talked about Dr Abreu's recommendation to consider low dose Eliquis, given that she cannottake aspirin. However, she does not want to start any new medication at this point. VITAL SIGNS: BP 138/88 Pulse: 75 Weight 112 lbs (stable) Labs today: Sodium: 141 Potassium: 4.6 BUN: 16.5 Creatinine: 0.89 Glucose: 165 BNP: 346 IMPRESSION AND PLAN: Coronary Artery Disease/ s/p STEMI (12/2022) -s/p stenting x2 to prox-mid LAD with staged stenting to mid RCA due to [place] shortly after -LVEF now 60% -denies angina -On Plavix. Intolerance to ASA Consider adding Eliquis Resolved Ischemic Cardiomyopathy: -LVEF now 60% -no signs or symptoms of heart failure -weight stable -not on low salt diet due to history of hyponatremia Hypertension: -many medication intolerances -on Losartan 25 mg, Clonidine 0.05 mg BID, Metoprolol XR 25 mg -BP controlled here Hyperlipidemia, with statin intolerance -recently stopped Crestor On Zetia only -LDL 82 on Crestor--> 168 baseline) -deferred PCSK9-inhibitor as it is cost prohibitive Diet controlled Type II Diabetes: -intolerance to multiple oral medications -Hgb A1C 7.1% Asthma The total time for the visit today was 40 minutes which includes patient visit, reviewing of records, discussion, and placing of orders of the outpatient coordination of cardiovascular care as described. The level of medical decision making during this visit was of moderate complexity. Thank you for allowing me to participate in their care. Orders Placed This Encounter Procedures Follow-Up with Cardiology Orders Placed This Encounter Medications omeprazole (PRILOSEC) [address] capsule Sig: Take 40 mg by mouth 2 times daily Medications Discontinued During This Encounter Medication Reason omeprazole (PRILOSEC) [address] capsule Dose adjustment Encounter Diagnoses Name Primary? Chronic systolic heart failure (H) Coronary artery disease involving [place] coronary artery of [place] heart without angina pectoris Yes CURRENT MEDICATIONS: Current Outpatient Medications Medication Sig Dispense Refill albuterol (PROAIR HFA, PROVENTIL HFA, VENTOLIN HFA) 108 (90 BASE) MCG/ACT inhaler Inhale 2 puffs into the lungs 2 times daily calcium carbonate (TUMS) 500 MG chewable tablet Take 500 mg by mouth as needed for heartburn calcium-vitamin D (CALTRATE) 600-400 MG-UNIT per tablet Take 1 tablet by mouth daily FLOVENT HFA 110 MCG/ACT inhaler Inhale 2 puffs into the lungs 2 times daily levothyroxine (SYNTHROID/LEVOTHROID) 25 MCG tablet Take 25 mcg by mouth every morning omeprazole (PRILOSEC) [address] capsule Take 40 mg by mouth 2 times daily PREDNISONE PO 20 mg for 5 days, then 10 mg for 5 days, then 10 mg every other day for 5 days - for asthma flareup - PRN sertraline (ZOLOFT) 50 MG tablet Take 50 mg by mouth every evening cloNIDine (CATAPRES) 0.1 MG tablet Take 0.1 mg by mouth 2 times daily CLONIDINE HCL PO Take 0.05 mg by mouth 2 times daily clopidogrel (PLAVIX) 75 MG tablet Take 75 mg by mouth ezetimibe (ZETIA) 10 MG tablet Take 1 tablet by mouth daily LORazepam (ATIVAN) 0.5 MG tablet Take 0.5 mg by mouth losartan (COZAAR) 25 MG tablet Take 25 mg by mouth daily LUTEIN PO Take 1 tablet by mouth metoprolol succinate ER (TOPROL XL) 25 MG 24 hr tablet Take 25 mg by mouth daily multivitamin, therapeutic with minerals (MULTI-VITAMIN) TABS Take 1 tablet by mouth daily nitroGLYcerin (NITROSTAT) 0.[address] 0.4 mg under the tongue every 5 minutes asneeded ondansetron (ZOFRAN ODT) 4 MG ODT tab Take 4 mg by mouth every 6 hours as needed polyethylene glycol-propylene glycol (SYSTANE) 0.4-0.3 % SOLN ophthalmic solution Place 1 drop intoboth eyes 4 times daily predniSONE (DELTASONE) 5 MG tablet Take 5 mg by mouth every morning ALLERGIES Allergies Allergen Reactions Food Any contact with peas, even odor, causes throat to swell shut. Spicy and acidic foods cause GERD Penicillins Swelling Head swells; asthma flares up Sulfa Antibiotics Shortness Of Breath and Swelling asthma flares up Alendronate [Alendronate] Animal Dander Asthma Aspirin Doesn't tolerate because of asthma Atorvastatin Stiff neck and neck pain Calcitonin Codeine Unknown Hallucinations Crestor [Rosuvastatin] Other (See Comments) Dizziness, fogginess, increased fatigue, shortness of breath Fosamax Hydromorphone Other (See Comments) Mental changes Lisinopril Itching Loratadine Stays awake for 40 hours after 1/4 tablet Loratadine Lorazepam Other (See Comments) confusion Oxycodone Hallucinations and confusion Perfume Asthma Pollen Extract asthma Smoke. Asthma Wool Fiber asthma Petroleum Jelly [Petrolatum, Hydrophilic] Rash Petroleum based salves and lotions cause rash PAST MEDICAL HISTORY: Past Medical History: Diagnosis Date Anesthesia Very slow to wake up. High reaction to meds Anxiety situational Arthritis Asthma Benign essential hypertension 03/04/2023 Chronic systolic congestive heart failure (H) 01/04/2023 Constipation Dysthymia Gastro-oesophageal reflux disease Hypertension Neuralgia, postherpetic Osteoporosis ST elevation myocardial infarction involving left anterior descending (LAD) coronary artery (H) 01/04/2023 ST elevation myocardial infarction involving left anterior descending (LAD) coronary artery (H) 01/04/2023 Thyroid disease hypothyroid Urgency of urination Vertigo PAST SURGICAL HISTORY: Past Surgical History: Procedure Laterality Date DILATION AND CURETTAGE x2 ESOPHAGOSCOPY, GASTROSCOPY, DUODENOSCOPY (EGD), COMBINED N/A 11/25/2017 Procedure: COMBINED ESOPHAGOSCOPY, GASTROSCOPY, DUODENOSCOPY (EGD), BIOPSY SINGLE OR MULTIPLE; ESOPHAGOGASTRODUODENOSCOPY WITH DILATION (MAC) ; Surgeon: Antonette Deluna MD; Location: GI HEAD & NECK SURGERY wisdom teeth REVERSE ARTHROPLASTY SHOULDER 01/30/2013 Procedure: REVERSE ARTHROPLASTY SHOULDER; Right Reverse Total Shoulder Arthroplasty; Surgeon: Jc Farr MD; Location: [facility] OR TONSILLECTOMY & ADENOIDECTOMY FAMILY HISTORY: No family history on file. SOCIAL HISTORY: Social History Socioeconomic History Marital status: Spouse name: None Number of children: None Years of education: None Highest education level: None Tobacco Use Smoking status: Never Smokeless tobacco: Never Substance and Sexual Activity Alcohol use: No Drug use: No Review of Systems: Skin: not assessed Eyes: not assessed ENT: not assessed Respiratory: Positive for dyspnea on exertion;cough Cardiovascular: Negative for chest pain Gastroenterology: not assessed Genitourinary: not assessed Musculoskeletal: not assessed Neurologic: not assessed Psychiatric: not assessed Heme/Lymph/Imm: not assessed Endocrine: not assessed Physical Exam: Vitals: BP 138/88 (BP Location: Right arm, Patient Position: Sitting, Cuff Size: Adult Regular) Pulse 75 Ht 1.473 m (4' 10) Wt 50.8 kg (112 lb) SpO2 98% BMI 23.41 kg/m?? Constitutional: cooperative Skin: warm and dry to the touch Head: normocephalic Eyes: pupils equal and round Lymph: ENT: no pallor or cyanosis hard of hearing out of right ear Neck: JVP normal;no carotid bruit Respiratory: clear to auscultation;normal respiratory excursion Cardiac: regular rhythm;normal S1 and S2 distant heart sounds pulses full and equal GI: abdomen soft Extremities and Muscular Skeletal: no edema Neurological: affect appropriate Psych: Alert and Oriented x 3 CC Brian Abreu MD [address] [place] [address] TRY HATCHERY SUPERVISOR documented in this encounter Plan of Treatment Upcoming Encounters Date Type Department Care Team (Late st Contact Info) Description 07/15/2023 9:15 AM POULTRY HATCHERY SUPERVISOR Office Visit [address] [place] [id number] Sakina Osborne APRN WAITER AND CASHIER [address] [place] [id number] Meenu Munoz DO [address] [place] [id number] Scheduled Referrals Name Type Priority Associated Diagnoses Orde r Schedule Follow-Up with Cardiology Referral Routine: Next available opening Coronary artery disease involving [place] coronary artery of [place] heart without angina pectoris Expected: 07/03/2023 (Approximate), Expires: 05/02/2024 documented as of this encounter Visit Diagnoses Diagnosis Coronary artery disease involving [place] coronary artery of [place] heart without angina pectoris- Primary Chronic systolic heart failure (H) Chronic systolic heart failure documented in this encounter Care Teams Blueprint Blocker Relationship Specialty Start Date End Date Loren Beyer MD [facility] & [address] [address] PCP - General Family Practice 11/15/17 Brian Abreu MD [address] [facility] [address] [place] [id number] Assigned Heart and Vascular Provider 02/26/23 05/06/23 documented as of this encounter
--- OUTSIDE RECORDS SUMMARY | 2023-07-04 15:28 | XMS_ITS | Encounter Summary ---
Author Name Unknown Organization [place] Address [address] [facility] [place] [address] Care Team Providers Care Cash Application Clerk Name Role Phone Loren Beyer MD Primary Care Provider + Brian Abreu MD Unavailable Sakina Osborne TONGUE BINDER ANALYTICAL CHEMISTRY TEACHER Unavailable [phone] Encounter Details Date Type Department Care Team (Late st Contact Info) Description 01/24/2023 External Order Results [facility] [address] [place] [phone] Outside, Provider Social History Tobacco Use Types Packs/Day Years Used Date Smoking Tobacco: Never Smokeless Tobacco: Never Alcohol Use Standard Drinks/Week Comments No 0 (1 standard drink = 0.6 oz pur e alcohol) Sex and Gender Information Value Date Recorded Sex Assigned at Not on file Gender Identity Not on file Sexual Orientation Not on file documented as of this encounter Plan of Treatment Upcoming Encounters Date Type Department Care Team (Late st Contact Info) Description 07/15/2023 9:15 AM GUEST RELATIONS AGENT Office Visit [facility] [place] [address] [facility] [address] [place] [address] Sakina Osborne, TONGUE BINDER ANALYTICAL CHEMISTRY TEACHER [address] [place] [id number] Meenu Denis DO [address] [place] [id number] documented as of this encounter Procedures Procedure Name Priority Date/Time Associated Diagnosis Comments CBC WITH PLATELETS & DIFFERENTIAL Routine 01/24/2023 8:51 AM CDT LIPID PROFILE Routine 01/24/2023 8:51 AM CDT HEPATIC FUNCTION PANEL Routine 01/24/2023 8:51 AM CDT BASIC METABOLIC PANEL Routine 01/24/2023 8:51 AM CDT documented in this encounter Results * (ABNORMAL) Basic metabolic panel (01/24/2023 8:51 AM CDT) Sodium (External) 137 135 - 149 mmol/L NON-INTERFACE D (ONBASE SCANS) Potassium (External) 3.8 3.6 - 5.1 mmol/L NON-INTERFACE D (ONBASE SCANS) Chloride (External) 101 96 - 114 mmol/L NON-INTERFACE D (ONBASE SCANS) CO2 (External) 30 20 - 32 mmol/L NON-INTERFACE D (ONBASE SCANS) Anion Gap (External) 6(L) 7 - 15 mEq/L NON-INTERFACE D (ONBASE SCANS) Urea Nitrogen (External) 15 7 - 30 mg/dL NON-INTERFACE D (ONBASE SCANS) Creatinine (External) 0.9 0.5 - 1.5 mg/dL NON-INTERFACE D (ONBASE SCANS) Calcium (External) 9.0 8.4 - 10.6 mg/dL NON-INTERFACE D (ONBASE SCANS) Glucose (External) 129(H) 60 - 125 mg/dL NON-INTERFACE D (ONBASE SCANS) GFR Estimated (External) 62 Not provided ml/min/1.73m2 NON-INTERFACE D (ONBASE SCANS) Blood BLOOD SPECIMEN / Unknown 01/24/2023 8:51 AM CDT Myranda BOUCHER PFT - 02/03/2023 4:02 PM CDT Verified by Lolita Rhodes on 02/03/2023. Provider Outside LAB - BLOOD ORDERABL Performing Organization Address [facility]/ZIP Co de Phone Number GENAROEZE PFT NON-INTERFACED (ONBASE SCANS) * Hepatic function panel (01/24/2023 8:51 AM CDT) Protein Total (External) 7.4 6.0 - 8.3 g/dL NON-INTERFACED (ONBASE SCANS) Albumin (External) 4.0 3.3 - 5.0 g/dL NON-INTERFACED (ONBASE SCANS) Bilirubin Total (External) 0.4 0.1 - 1.5 mg/dL NON-INTERFACED (ONBASE SCANS) AST (External) 30 12 - 35 U/L NON-INTERFACED (ONBASE SCANS) ALT (External) 21 4 - 35 U/L NON- INTERFACED (ONBASE SCANS) Alk Phosphatase (External) 71 40 - 150 U/L NON-INTERFACED (ONBASE SCANS) Blood BLOOD SPECIMEN / Unknown 01/24/2023 8:51 AM CDT Narrative BREEZE PFT - 02/03/2023 4:02 PM CDT Verified by Lolita Rhodes on 02/03/2023. Provider Outside LAB - BLOOD ORDERABL Performing Organization Address [facility] de Phone Number JARRODE PFT NON-INTERFACED (ONBASE SCANS) * Lipid Profile (01/24/2023 8:51 AM CDT) Triglycerides (External) 60 40 - 149 mg/dL NON-INTERFACE D (ONBASE SCANS) Cholesterol (External) 147 90 - 199 mg/dL NON-INTERFACE D (ONBASE SCANS) LDL Cholesterol Calculated (External) 82 <100 mg/dL NON-INTERFACE D (ONBASE SCANS) HDL Cholesterol (External) 53 >=50 mg/dL NON-INTERFACE D (ONBASE SCANS) Blood BLOOD SPECIMEN / Unknown 01/24/2023 8:51 AM CDT Narrative BREEZE PFT - 02/03/2023 4:02 PM CDT Verified by Lolita Rhodes on 02/03/2023. Provider Outside LAB - BLOOD ORDERABL ES BREEZE PFT NON-INTERFACED (ONBASE SCANS) * (ABNORMAL) CBC with Platelets & Differential (01/24/2023 8:51 AM CDT) WBC Count (External) 8.32 4.50 - 11.00 K/uL NON-INTERFACE D (ONBASE SCANS) RBC Count (External) 4.88 4.00 - 5.20 M/UL NON-INTERFACE D (ONBASE SCANS) Hemoglobin (External) 12.4 12.0 - 16.0 gm/dL NON-INTERFACE D (ONBASE SCANS) Hematocrit (External) 40.4 33.0 - 51.0 % NON-INTERFACE D (ONBASE SCANS) MCV (External) 83 80 - 100 fL NON-INTERFACE D (ONBASE SCANS) MCH (External) 25(L) 26 - 34 pg NON- INTERFACE D (ONBASE SCANS) MCHC (External) 31(L) 32 - 36 g/dL NON-INTERFACE D (ONBASE SCANS) Platelet Count (External) 249 140 - 440 K/UL NON-INTERFACE D (ONBASE SCANS) RDW (External) 14.9 11.5 - 15.5 % NON-INTERFACE D (ONBASE SCANS) % Neutrophils (External) 65.1 42.0 - 72.0 % NON-INTERFACE D (ONBASE SCANS) % Lymphocytes (External) 22.0 20 - 44 % NON-INTERFACE D (ONBASE SCANS) % Monocytes (External) 9.3 0.0 - 11.0 % NON-INTERFACE D (ONBASE SCANS) % Eosinophils (External) 2.5 0.0 - 7.0 % NON-INTERFACE D (ONBASE SCANS) % Basophils (External) 0.7 0.0 - 3.0 % NON-INTERFACE D (ONBASE SCANS) % Immature Granulocytes (External) 0.4 % NON-INTERFACE D (ONBASE SCANS) Absolute Neutrophils (External) 5.42 1.7 - 7.0 K/UL NON-INTERFACE D (ONBASE SCANS) Absolute Lymphocytes (External) 1.80 0.90 - 2.90 K/UL NON-INTERFACE D (ONBASE SCANS) Absolute Monocytes (External) 0.77 0.00 - 0.90 K/UL NON-INTERFACE D (ONBASE SCANS) Absolute Eosinophils (External) 0.21 0.00 - 0.50 K/UL NON-INTERFACE D (ONBASE SCANS) Absolute Basophils (External) 0.06 0.00 - 0.30 K/UL NON-INTERFACE D (ONBASE SCANS) Absolute Immature Granulocytes (External) 0.03 0.00 - 0.30 K/UL NON-INTERFACE D (ONBASE SCANS) Method (External) Auto NO N-INTERFACE D (ONBASE SCANS) Blood BLOOD SPECIMEN / Unknown 01/24/2023 8:51 AM CDT Narrative CITLALY PFT - 02/03/2023 4:02 PM CDT Verified by Lolita Rhodes on 02/03/2023. Provider Outside LAB - BLOOD ORDERABL ES CITLALY PFT NON-INTERFACED (ONBASE SCANS) documented in this encounter Visit Diagnoses Not on filedocumented in this encounter Care Teams Cash Application Clerk Relationship Specialty Start Date End Date Loren Beyer MD [facility] & [address] [address] PCP - General Family Practice 11/15/17 Brian Abreu MD [address] [place] [address] Assigned Heart and Vascular Provider 02/26/23 05/06/23 Sakina Osborne APRN ANALYTICAL CHEMISTRY TEACHER [address] [place] [id number] Assigned Heart and Vascular Provider 05/07/23 documented as of this encounter
--- OUTSIDE RECORDS SUMMARY | 2023-07-04 15:28 | XMS_ITS | Encounter Summary ---
Author Name Unknown Organization [facility] Address [address] [facility] [place] [address] Care Team Providers Care Client Advisor Name Role Phone Loren Beyer MD Primary Care Provider + Reason for Referral * Consultation (Routine: Next available opening) - Pending Review Specialty Diagnoses / Procedures Referred By Contac t Referred To Contact Cardiovascular Disease Diagnoses Chronic systolic heart failure (H) Brian Abreu MD [address] [facility] [address] [place] [address] Referral ID Status Reason Start Date Expiration Date V isits Requested Visits Authorized [id number] Pending Review 02/25/2023 02/25/2024 1 1 Question Answer Follow-up with: GILBERT Reason for follow-up: CORE Scheduling Instructions: [facility] will call you to coordinate your care as prescribed by your provider. If you have concerns about scheduling, please call [phone]. Comments [facility] will call you to coordinate your care as prescribed by your provider. If you have concerns about scheduling, please call [phone]. * CV Testing (Routine) - Closed Specialty [...] [facility] STATISTIC IV PUSH SINGLE INITIAL SUBSTANCE VT ECHO MYOCARD BX VT INJECTION, PERFLUTREN LIPID MICROSPHERES, PER ML VT TTE W/DOPPLER, COMPLETE VT IV PUSH SINGLE, INITIAL SUBSTANCE VT TTE W/DOPPLER, COMPLETE VT TTE W/DOPPLER, COMPLETE HC US GUIDE FOR PERICARDIOCENTESIS HC ECHO MYOCARD BX HC IV PUSH SINGLE, INITIAL SUBSTANCE HC STATISTIC IV PUSH SINGLE INITIAL SUBSTANCE HC ECHO COMPLETE W DOPPLER W CONTRAST HC ECHO COMPLETE W DOPPLER W/O CONTRAST Brian Abreu MD [address] [place] [address] Rh Cv Cardiac Svc [facility] [address] [place] [address] Referral ID Status Reason Start Date Expiration Date Visits Re quested Visits Authorized [id number] Closed 03/31/2023 02/25/2024 1 1 Reason for Visit * Reason Comments Follow Up New establish care, STEMI Encounter Details Date Type Department Care Team (Late st Contact Info) Description 02/25/2023 1:45 PM CDT Office Visit [facility] [address] [place] [address] Brian Abreu MD [address] [place] [id number] Chronic systolic heart failure (H) (Primary Dx) Social History Tobacco Use Types Packs/Day Years [...] Sign Reading Time Taken Comments Blood Pressure 134/72 02/25/2023 1:37 PM CDT Pulse 78 02/25/2023 1:37 PM CDT Temperature - - Respiratory Rate - - Oxygen Saturation 98% 02/25/2023 1:37 PM CDT Inhaled Oxygen Concentration - - Weight 52 kg (114 lb 9.6 oz) 02/25/2023 1:37 PM CDT Height - - Body Mass Index 23.95 11/25/2017 7:20 AM CDT documented in this encounter Progress Notes * Brian Abreu MD - 02/25/2023 1:45 PM CDT CARDIOLOGY CLINIC CONSULTATION PRIMARY CARE PHYSICIAN: Loren Beyer HISTORY OF PRESENT ILLNESS: This is an 87-year-old female who is seeing me for the first time at [facility]. The patient is here with her Amarjit. She lives in [facility] lives in an independent living with her . The patient was admitted to [facility] in December 2022 with anterior STEMI. She had stents put into her LAD. Subsequently she had staged PCI to the right coronary artery the same month. Echocardiography suggested EF of 30 to 35%. It seems at discharge she was told to take dual antiplatelet therapy with aspirin clopidogrel. She was prescribed Crestor metoprolol and Zetia. She has been on clonidine and losartan for a while for her hypertension. Today she is seen me for the first time in clinic. This was a lengthy clinic visit. Patient was extremely tearful. She wanted to make sure that she got along with our team here. She says she absolutely does not want to go back to the [facility] system. She says she was concerned about hygiene. She alsofelt providers that did not respect her opinions. In regards to medications, I am not exactly sure what medications and what doses the patient is taking. Having said that the patient tells me she is taking her Plavix Zetia metoprolol. She has had side effects on statin and has failed them. She says she will absolutely not take aspirin because she has been told by an asthma specialist that it is completely contraindicated in her case. No active cardiac symptoms. No syncope presyncope or heart failure. PAST MEDICAL HISTORY: Past Medical History: Diagnosis Date Anesthesia Very slow to wake up. High reaction to meds Anxiety situational Arthritis Asthma Constipation Dysthymia Gastro-oesophageal reflux disease Hypertension Neuralgia, postherpetic Osteoporosis Thyroid disease hypothyroid Urgency of urination Vertigo MEDICATIONS: Current Outpatient Medications Medication albuterol (2.5 MG/3ML) 0.083% nebulizer solution albuterol (PROAIR HFA, PROVENTIL HFA, VENTOLIN HFA) 108 (90 BASE) MCG/ACT inhaler beclomethasone (QVAR) 80 MCG/ACT Inhaler calcium carbonate (TUMS) 500 MG chewable tablet calcium-vitamin D (CALTRATE) 600-400 MG-UNIT per tablet chlorpheniramine (CHLOR-TRIMETON) 4 MG tablet cloNIDine (CATAPRES) 0.1 MG tablet CLONIDINE HCL PO clopidogrel (PLAVIX) 75 MG tablet ezetimibe (ZETIA) 10 MG tablet FLOVENT HFA 110 MCG/ACT inhaler LACTASE ENZYME PO LANsoprazole (PREVACID) [address] capsule levothyroxine (SYNTHROID/LEVOTHROID) 25 MCG tablet Levothyroxine Sodium (SYNTHROID PO) LORazepam (ATIVAN) 0.5 MG tablet losartan (COZAAR) 25 MG tablet LUTEIN PO MECLIZINE HCL PO metoprolol succinate ER (TOPROL XL) 25 MG 24 hr tablet multivitamin, therapeutic with minerals (MULTI-VITAMIN) TABS NEW MED nitroGLYcerin (NITROSTAT) 0.4 MG sublingual tablet omeprazole (PRILOSEC) [address] capsule OMEPRAZOLE PO ondansetron (ZOFRAN ODT) 4 MG ODT tab ONDANSETRON PO polyethylene glycol-propylene glycol (SYSTANE) 0.4-0.3 % SOLN ophthalmic solution predniSONE (DELTASONE) 5 MG tablet PREDNISONE PO raloxifene (EVISTA) 60 MG tablet rosuvastatin (CRESTOR) 5 MG tablet sertraline (ZOLOFT) 50 MG tablet SERTRALINE HCL PO sucralfate (CARAFATE) 1 GM tablet No current facility-administered medications for this visit. SOCIAL HISTORY: I have reviewed this patient's social history and updated it with pertinent information if needed. Fawad Celeste reports that she has never smoked. She has never used smokeless tobacco. She reports that she does not drink alcohol and does not use drugs. PHYSICAL EXAM: Pulse: [78] 78 BP: (134)/(72) 134/72 SpO2: [98 %] 98 % 114 lbs 9.6 oz Constitutional: alert, no distress Respiratory: Good bilateral air entry Cardiovascular: Normal regular heart sounds no edema GI: nondistended Neuropsychiatric: appropriate affact ASSESSMENT: Pertinent issues addressed/ reviewed during this cardiology visit Coronary artery disease status post LAD and RCA stenting December 2022 Severe ischemic cardiomyopathy heart failure with reduced ejection fraction Hypertension RECOMMENDATIONS: First and foremost I need to find out what medications about doses the patient taking. I have introduced her to one of her core nurses and we will have our core team contact the patient to get a listof the medication including doses that she is taking. She likely will need aggressive uptitration of medical therapy. Her home blood pressures have been elevated in the 1 40-1 60 range. She will need uptitration of medications for her heart failure withreduced EF. Having said that her allergy list shows numerous somewhat very nonspecific side effectsto multiple medications. It seems she has had itching with lisinopril. We will make recommendations on medications once we confirm her current list and dosage. I will have her repeat an echocardiogram in the next 4 weeks and follow-up with the core GILBERT in 2 months. I told her I will have my nursing team provider notes to her primary doctor. Most importantly I would need to know opinion from her primary doctor about what we should do about her antiplatelet therapy. Given her multiple stents, Plavix monotherapy this early may not be ideal. If she cannot take Plavix, I might have to put her on short-term anticoagulation such as low-dose Eliquis 2.5 twice daily. It was a pleasure seeing this patient in clinic today. Please do not hesitate to contact me with any future questions. VENKAT Will, [facility] Cardiology - [facility] Heart February 25, 2023 Total visit time including chart review documentation discussion and enrollment in core clinic was 65 minutes. This note was completed in part using dictation via the [employer] voice recognition software. Some word and grammatical errors may occur and must be interpreted in the appropriate clinical context. If there are any questions pertaining to this issue, please contact me for further clarification. documented in this encounter Plan of Treatment Upcoming Encounters Date Type Department Care Team (Late st Contact Info) Description 07/15/2023 9:15 AM HOOD MAKER Office Visit [facility] [address] [place] [id number] Sakina Osborne, PROJECT CONSULTANT [employer]G MILL OPERATOR [address] [place] [id number] Tracycamila Meenu Chuyita, DO [address] [place] [id number] Scheduled Referrals Name Type Priority Associated Diagnoses Orde r Schedule Follow-Up with Cardiology- Core Referral Routine: Next available opening Chronic systolic heart failure (H) Expected: 04/27/2023 (Approximate), Expires: 02/26/2024 documented as of this encounter Results * ECHO COMPLETE (03/31/2023 11:27 AM HOOD MAKER) LVEF 60-65% CARDIOLOGY RESULTS Anatomical Region Laterality Modality Echocardiography 03/31/2023 10:5 3 AM HOOD MAKER Narrative 03/31/2023 11:54 AM HOOD MAKER [id number]^ANIL^BRIAN [facility] Echocardiography Laboratory [address] [place] [id number] Name: FAWAD CELESTE MAMariluz : 1935 Study Date: 03/31/2023 10:53 AM Age: 87 yrs Gender: Female Patient Location: [facility] Reason For Study: Chronic systolic heart failure [...] Procedure Note Christiana Delaney MD - 03/31/2023 [id number]^ANIL^BRIAN [facility] Echocardiography Laboratory [address] [place] [address] Name: FAWAD CELESTE : 1935 Study Date: 03/31/2023 10:53 AM Age: 87 yrs Gender: Female Patient Location: [facility] Reason For Study: Chronic systolic heart failure [...] Visit Diagnoses Diagnosis Chronic systolic heart failure (H)- Primary Chronic systolic heart failure Chronic systolic heart failure (H) Chronic systolic heart failure documented in this encounter Care Teams Client Advisor Relationship Specialty Start Date End Date Loren Beyer MD [facility] [address] [place] [address] PCP - General Family Practice 11/15/17 documented as of this encounter
== END 2023-07-04 11:07 | disposition home or self-care (01) ==
PROVIDERS: PCP Family Medicine; Referring Provider Family Medicine; Visit Provider Family Medicine
DX: D64.9 Anemia, unspecified (principal); E11.9 Type 2 diabetes mellitus without complications; E78.5 Hyperlipidemia, unspecified; I10 Essential (primary) hypertension; E03.9 Hypothyroidism, unspecified; Z79.899 Other long term (current) drug therapy
CPT/HCPCS: 80053; 80061; 82306; 82607; 82728; 83540; 83550; 84443

== ENCOUNTER 2023-07-09 18:44 | Outpatient (CLI) | payer MEDICARE, OTHER, SELFPAY | END 2023-07-09 18:45 | disposition home or self-care (01) | LOC: AMB 07-22 16:03 | PROVIDERS: PCP Family Medicine; Visit Provider Emergency Medicine | DX: R04.0 Epistaxis (principal) | CPT/HCPCS: A0425; A0429 ==

== ENCOUNTER 2023-07-09 19:15 | Emergency (ER) | payer MEDICARE, OTHER, SELFPAY ==
[2023-07-09 19:18] VITALS: BP 180/90; PULSE 78; RESP 18; TEMP 37.1; O2SAT 91; BMI 23.4
--- NOTE | 2023-07-09 19:22 | ED.GENADULT ---
HPI - General Adult General Date Seen: 07/09/23 Chief complaint: Epistaxis/Nosebleed Stated complaint: Nosebleed Time Seen by Provider: 07/09/23 19:19 History of Present Illness HPI narrative: This is an 87-year-old female presenting to the ER by EMS for evaluation of epistaxis. She has a past medical history of CAD (with TX and stents several months ago, now on plavix), type 2 diabetes, dyslipidemia, GERD, hypertension, hypothyroidism, asthma, SIADH. She is on Plavix. She has been having trouble with mild epistaxis off and on for the past couple of weeks but always very mild and self-limited. Today she was feeling normally until this evening when she be dull about a fairly brisk bilateral nose bleed. She says dark red blood was gushing out of both of her nostrils. She was extremely worried about the volume of blood she was losing. Her notes that she got panicky and really was not able to follow his instructions about how to apply pressure. She tried to put some Kleenex up her nose but it was soaking with blood, and not stopping the blood. She was very upset about the bleeding and it was not stopping so she asked her to call 911 She was brought in by EMS. In route she was holding pressure on her nose with Kleenex and the bleeding seems to have stopped. She is not otherwise lightheaded. She is not pale. No other unusual bleeding. Related Data Home Medications Medication Instructions Recorded Confirmed calcium carbonate 300 mg (750 mg) 300 mg PO .prn PRN 01/28/22 07/07/23 chewable tablet (Tums E-X) sodium chloride 0.65 % nasal spray 1 spray intranasal .prn 01/28/22 07/07/23 aerosol (Saline Nasal) simethicone 125 mg capsule (Gas 125 mg PO BID-QID PRN 04/30/22 07/07/23 Relief (simethicone)) polyethylene glycol 3350 17 4 g PO ONCE PRN 01/27/23 07/07/23 gram/dose oral powder (Miralax) albuterol sulfate 90 mcg/actuation 2 puff inhalation BID shortness of 07/07/23 07/07/23 aerosol inhaler breath or wheezing calcium carbonate 600 mg-vitamin cap PO DAILY 07/07/23 07/07/23 D3 12.5 mcg (500 unit) capsule (Calcium 600 with Vitamin D3) lactase 9,000 unit chewable tablet 9,000 unit PO ONCE PRN 07/07/23 07/07/23 (Lactaid Fast Act) lorazepam 0.5 mg tablet 0.25 mg PO BID PRN anxiety 07/07/23 07/07/23 multivitamin (Daily Multi-Vitamin 1 tab PO DAILY 07/07/23 07/07/23 tablet) Previous Rx's Medication Instructions Recorded clonidine HCl 0.1 mg tablet 0.05 mg (1/2 x 0.1 mg) PO TID 01/27/23 hypertension #90 tabs clopidogrel 75 mg tablet 75 mg PO DAILY #90 tabs 01/27/23 ezetimibe 10 mg tablet 10 mg PO DAILY #90 tabs 01/27/23 levothyroxine 25 mcg tablet 25 mcg PO DAILY #90 tabs 01/27/23 metoprolol succinate 25 mg 25 mg PO DAILY #90 tabs 01/27/23 tablet,extended release 24 hr ondansetron 4 mg disintegrating 4 mg PO BID-TID PRN nausea and 01/27/23 tablet vomiting #30 tabs prednisone 5 mg tablet 5 mg PO QAM #90 tabs 01/27/23 sertraline 50 mg tablet 50 mg PO QPM #90 tabs 01/27/23 losartan 25 mg tablet 25 mg PO BID htn #180 tabs 02/18/23 omeprazole 20 mg capsule,delayed 20 mg PO BID #360 caps 04/29/23 release ciclesonide 160 mcg/actuation 2 inh inhalation BID #6.1 grams 06/24/23 aerosol inhaler (Alvesco) nitroglycerin 0.4 mg sublingual 0.4 mg sublingual Q5-15M PRN chest 06/29/23 tablet pain #25 tabs Allergies Allergy/AdvReac Type Severity Reaction Status Date / Time codeine Allergy Severe Hallucinati Verified 07/09/23 19:18 ng hydrocodone Allergy Severe confusion/h Verified 07/09/23 19:18 allucinatin g oxycodone Allergy Severe Confusion Verified 07/09/23 19:18 penicillin V Allergy Severe Anaphylaxis Verified 07/09/23 19:18 rosuvastatin Allergy Severe Swelling Verified 07/09/23 19:18 of Lip/Tongue/Throat amlodipine Allergy Intermediate Flushing Verified 07/09/23 19:18 bisacodyl Allergy Intermediate rash/scalp, Verified 07/09/23 19:18 [From Dulcolax (bisacodyl)] redness to eyelid hydromorphone Allergy Intermediate mental Verified 07/09/23 19:18 changes lisinopril Allergy Intermediate itchy Verified 07/09/23 19:18 metformin Allergy Intermediate nausea, Verified 07/09/23 19:18 diarrhea aspirin Allergy Mild Rash Verified 07/09/23 19:18 atorvastatin Allergy Mild Rash Verified 07/09/23 19:18 calcitonin Allergy Mild Rash Verified 07/09/23 19:18 loratadine Allergy Mild Rash Verified 07/09/23 19:18 alendronate sodium Allergy Unknown Verified 07/09/23 19:18 lorazepam Allergy severe Verified 07/09/23 19:18 hallucinations montelukast Allergy Hallucinati Verified 07/09/23 19:18 ng peas Allergy Anaphylaxis Verified 07/09/23 19:18 Sulfa (Sulfonamide Allergy Anaphylaxis Verified 07/09/23 19:18 Antibiotics) mometasone furoate AdvReac Headache Verified 07/09/23 19:18 [From Asmanex Twisthaler] PFSH PFSH Medical History Osteoarthritis of carpometacarpal (CMC) joint of left thumb ?M18.12 - Unilateral primary osteoarthritis of first carpometacarpal joint, left hand (ICD-10) Greater trochanteric bursitis of both hips ?M70.61 - Trochanteric bursitis, right hip (ICD-10) ?M70.62 - Trochanteric bursitis, left hip (ICD-10) ST elevation (STEMI) myocardial infarction (01/04/23) ?I21.3 - ST elevation (STEMI) myocardial infarction of unspecified site (ICD-10) Fracture of right ulnar styloid ?S52.611A - Displaced fracture of right ulna styloid process, initial encounter for closed fracture (ICD-10) Personal history of gallstones ?Z87.19 - Personal history of other diseases of the digestive system (ICD-10) Iron deficiency anemia ?D50.9 - Iron deficiency anemia, unspecified (ICD-10) Functional dyspepsia ?K30 - Functional dyspepsia (ICD-10) Diverticulitis large intestine w/o perforation or abscess w/o bleeding ?K57.32 - Diverticulitis of large intestine without perforation or abscess without bleeding (ICD-10) Chronic nausea ?R11.0 - Nausea (ICD-10) Thyroid nodule ?E04.1 - Nontoxic single thyroid nodule (ICD-10) Chronic vertigo ?R42 - Dizziness and giddiness (ICD-10) Benign gastric polyp ?K31.7 - Polyp of stomach and duodenum (ICD-10) Diabetes mellitus ?E11.9 - Type 2 diabetes mellitus without complications (ICD-10) Epistaxis ?R04.0 - Epistaxis (ICD-10) Temporal headache ?R51.9 - Headache, unspecified (ICD-10) Throat clearing ?R09.89 - Other specified symptoms and signs involving the circulatory and respiratory systems (ICD-10) Tetanus vaccine side effect ?T50.A95A - Adverse effect of other bacterial vaccines, initial encounter (ICD-10) Statin intolerance ?Z78.9 - Other specified health status (ICD-10) Perforated nasal septum ?J34.89 - Other specified disorders of nose and nasal sinuses (ICD-10) History of chronic eczema ?Z87.2 - Personal history of diseases of the skin and subcutaneous tissue (ICD-10) Environmental allergies ?Z91.09 - Other allergy status, other than to drugs and biological substances (ICD-10) Aspirin allergy ?Z88.8 - Allergy status to other drugs, medicaments and biological substances (ICD-10) Hyponatremia ?E87.1 - Hypo-osmolality and hyponatremia (ICD-10) Health care directive on file ?Z78.9 - Other specified health status (ICD-10) Surgical History (Updated 07/07/23 @ 09:48 by Loren Beyer MD) History of carpal tunnel surgery of right wrist (05/19/23) ?Z98.890 - Other specified postprocedural states (ICD-10) H/O wisdom tooth extraction ?K08.409 - Partial loss of teeth, unspecified cause, unspecified class (ICD-10) History of heart artery stent (01/04/23) ?Z95.5 - Presence of coronary angioplasty implant and graft (ICD-10) History of esophageal dilatation (2018) ?Z98.890 - Other specified postprocedural states (ICD-10) History of tonsillectomy and adenoidectomy ?Z90.89 - Acquired absence of other organs (ICD-10) History of dilation and curettage ?Z98.890 - Other specified postprocedural states (ICD-10) 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 Social History (Updated 02/18/23 @ 15:54 by Loren Beyer MD) Narrative: does not drink alcohol exercises regularly, dances [place] daily in the morning and also housework - 2 adult daughters, little/no contact, closest to foster son KAMRON, independent living [facility] non-smoker Smoking Status: Never smoker Do you use any of these nicotine containing products: None How often do you have a drink containing alcohol: never How often do you have six or more drinks on one occasion: Never AUDIT-C Alcohol total score: 0 Non-prescribed substance use: denies use Little interest or pleasure in doing things: not at all Feeling down, depressed, or hopeless: several days service: No Exam Narrative: Exam Narrative: Constitutional: Appears well-developed and well-nourished. Alert. Initially quite anxious and upset. She tells me a long story about a lot of grievances with previous medical care and her concern about being on too many medications. She is very upset but ultimately calms down and it becomes much more Conversant. Non toxic. HENT: Head: Atraumatic. Nose: Initially holding a Kleenex on her nose. After we removed the Kleenex we inspect her nose. No active bleeding. No posterior or pharyngeal bleeding. She does have a lot of clotted blood in both nostrils that obscures my visualization of her nasal cavity. Not able to see any clear source of bleeding. Given bilateral blood suspicious for possible posterior source. Mouth/Throat: Oral mucosa is clear and moist. no trismus. Pharynx normal. Tonsils symmetric. No tonsillar enlargement, erythema, or exudate. Eyes: Conjunctivae normal. EOM normal. Pupils equal, round, and reactive to light. No scleral icterus. Neck: Normal range of motion. Neck supple. No tracheal deviation present. Cardiovascular: Normal rate, regular rhythm. No gallop. No friction rub. No murmur heard. Symmetric radial artery pulses . Normal cap refill in her extremities. Pulmonary/Chest: Effort normal. No stridor. No respiratory distress. No wheezes. No rales. No rhonchi . Musculoskeletal: RUE: Normal range of motion. No tenderness. No deformity LUE: Normal range of motion. No tenderness. No deformity RLE: Normal range of motion. No edema. No tenderness. No deformity LLE: Normal range of motion. No edema. No tenderness. No deformity Neurological: Alert and oriented to person, place, and time. Normal strength. CN II-VII intact. No sensory deficit. GCS eye subscore is 4. GCS verbal subscore is 5. GCS motor subscore is 6. Normal coordination Skin: Skin is warm and dry. No rash noted. No pallor. Normal capillary refill. Psychiatric: Initially very anxious and upset. Subsequently calm. Const: Vital Signs, click to edit/add: Vital Signs - 24 hr 07/09/23 19:18 Temperature 98.7 F Pulse Rate [Right Pulse Oximeter] 78 Respiratory Rate 18 Blood Pressure [Le ft Upper Arm] 180/90 H Pulse Oximetry 91 Oxygen Delivery Me thod Room Air Course Course ED Course: Arrived by EMS and ER bed 6. Initial primary survey and history performed. Bleeding seems to have stopped We monitor the patient here in the ER. We applied Afrin . No recurrent bleeding. Still some small blood clots in both nares. No active bleeding.. Applied TXA to try to help stabilize clots. Still no recurrent bleeding. Passed ambulation trial. No recurrent bleeding. Vital Signs Vital signs: Initial Vital Signs Temperature 98.7 F 07/09/23 19:18 Temperature Source Temporal Artery Scan 07/09/23 19:18 Pulse Rate 78 07/09/23 19:18 Pulse Rhythm Regular 07/09/23 19:18 Respiratory Rate 18 07/09/23 19:18 Blood Pressure 180/90 H 07/09/23 19:18 Blood Pressure Mean 120 H 07/09/23 19:18 Blood Pressure Position Supine 07/09/23 19:18 Pulse Oximetry 91 07/09/23 19:18 Oxygen Delivery Method Room Air 07/09/23 19:18 Vital Signs Temperature 98.7 F 07/09/23 19:18 Pulse Rate 78 07/09/23 19:18 Respiratory Rate 18 07/09/23 19:18 Blood Pressure 180/90 H 07/09/23 19:18 Pulse Oximetry 91 07/09/23 19:18 Oxygen Delivery Method Room Air 07/09/23 19:18 Temperature 98.7 F 07/09/23 19:18 Pulse Rate 78 07/09/23 19:18 Respiratory Rate 18 07/09/23 19:18 Blood Pressure 180/90 H 07/09/23 19:18 Pulse Oximetry 91 07/09/23 19:18 Oxygen Delivery Method Room Air 07/09/23 19:18 Medications Administered Medications: Discontinued Medications Generic Name Dose Route Start Last Admin Trade Name Kristen PRN Reason Stop Dose Admin Lidocaine/Epinephrine 20 ml 07/09/23 19:53 07/09/23 19:58 Lidocaine 1%-Epi 1:100,000 20 Ml INFILTRATI 07/09/23 19:54 20 ml ONCE ONE Administration Silver Nitrate/Potassium Nitrate 1 each 07/09/23 19:53 07/09/23 19:59 Silver Nitrate Applicator 1 Each Stick..Ea. TOPICAL 07/09/23 19:54 1 each ONCE ONE Administration Tranexamic Acid 1,000 mg 07/09/23 19:53 07/09/23 19:59 Tranexamic Acid 100 Mg/Ml Inj TOPICAL 07/09/23 19:54 1,000 mg ONCE ONE Administration Medical Decision Making MDM Narrative Medical decision making narrative: This is a very pleasant but very anxious 87-year-old female presenting to the ER today by EMS from her home for evaluation of epistaxis. She is on Plavix for coronary disease with stents. She has been having some recent trouble with minor epistaxis recently but tonight's bleeding was more brisk and more prolonged. Fortunately she is well perfused. She is refusing blood pressure checks because the squeeze of the blood pressure cuff is too painful on her arm. Other signs of her vital signs such as capillary refill, mental status, pulse rate suggest that she is hemodynamically stable Bleeding actually stopped by the time she arrived here in the ER. We monitor her for approximately 2 hours with no recurrence of bleeding. We did apply Afrin and TXA into both nostrils. At this point she does have some dry blood in scabs in both nostrils but I am not able to identify it specific Site where the bleeding had come from. Nothing cauterized bowl. At this point with good hemostasis and 2 hours observation, we feel that the risk and discomfort associated with nasal packing is not worth the benefit. She passed an ambulation trial here in the ER and is doing well. At this point with reasonable clinical confidence I think she is safe for discharge home with her . Discussed epistaxis care and epistaxis return precautions with the patient and her . They are in agreement Discharge Plan Discharge Clinical Impression: Epistaxis Patient Disposition: Home, Self-Care Condition: Stable Instructions: Nosebleed (ED) Additional Instructions: As we discussed, if you have another nosebleed at home a 1st step is to go to the kitchen sink or bathroom so that you can lean forward and let the blood come out. Apply direct pressure with your finger is a with a nasal clamp for 10 minutes dizzy view can stop the bleeding. If the bleeding does not stop after 10 minutes of direct pressure come back to the ER to be rechecked. Prescriptions: No Action simethicone [Gas Relief (simethicone)] 125 mg capsule 125 mg PO BID-QID PRN polyethylene glycol 3350 [Miralax] 17 gram/dose powder 4 g PO ONCE PRN prednisone 5 mg tablet 5 mg PO QAM Qty: 90 4RF sertraline 50 mg tablet 50 mg PO QPM Qty: 90 4RF ondansetron 4 mg tablet,disintegrating 4 mg PO BID-TID PRN (Reason: nausea and vomiting) Qty: 30 4RF metoprolol succinate 25 mg tablet extended release 24 hr 25 mg PO DAILY Qty: 90 4RF levothyroxine 25 mcg tablet 25 mcg PO DAILY Qty: 90 4RF ezetimibe 10 mg tablet 10 mg PO DAILY Qty: 90 4RF clopidogrel 75 mg tablet 75 mg PO DAILY Qty: 90 4RF clonidine HCl 0.1 mg tablet 0.05 mg PO TID Qty: 90 4RF Rx Instructions: half in am, full tab in pm losartan 25 mg tablet 25 mg PO BID Qty: 180 4RF albuterol sulfate 90 mcg/actuation HFA aerosol inhaler 2 puff INHALATION BID calcium carbonate-vitamin D3 [Calcium 600 with Vitamin D3] 600 mg-12.5 mcg (500 unit) capsule PO DAILY lorazepam 0.5 mg tablet 0.25 mg PO BID PRN (Reason: anxiety) Alvesco 160 mcg/actuation HFA aerosol inhaler 2 inh inhalation BID Qty: 6.1 12RF calcium carbonate [Tums E-X] 300 mg (750 mg) tablet,chewable 300 mg PO .prn PRN Saline Nasal 0.65 % aerosol,spray 1 spray intranasal .prn multivitamin [Daily Multi-Vitamin] Tablet 1 tab PO DAILY Lactaid Fast Act 9,000 unit tablet,chewable 9,000 unit PO ONCE PRN Rx Instructions: administer with meals and/or snacks omeprazole 20 mg capsule,delayed release(DR/EC) 20 mg PO BID Qty: 360 0RF nitroglycerin 0.4 mg tablet, sublingual 0.4 mg sublingual Q5-15M PRN (Reason: chest pain) Qty: 25 2RF Follow Up/Referrals: Loren Beyer MD [Primary Care Provider] - Stand Alone Forms: [employer] Info Instructions
[2023-07-09] MEDS: TRANEXAMIC ACID 100 MG/ML INJ 1000 MG TOPICAL (19:59)
[2023-07-09] MEDS: SILVER NITRATE APPLICATOR 1 EACH STICK..EA. TOPICAL (19:59)
--- NOTE | 2023-07-09 21:09 | ED.NURSE ---
Ambulated around the unit without difficulty.
== END 2023-07-09 21:33 | disposition home or self-care (01) ==
PROVIDERS: Emergency Provider Emergency Medicine; PCP Family Medicine
DX: R04.0 Epistaxis (principal)
CPT/HCPCS: 30901; 99283; A9270

== ENCOUNTER 2023-09-05 09:45 | Outpatient (CLI) | payer MEDICARE, OTHER, SELFPAY ==
--- OUTSIDE RECORDS SUMMARY | 2023-09-07 11:39 | XMS_ITS | Clinical Summary ---
Author Name Unknown Organization [place] Address [address] [facility] [place] [address] Care Team Providers Care Resolution Rep Name Role Phone Loren Beyer MD Primary Care Provider + Teresa Chiu RN Unavailable Unavaila Meenu Alves DO Unavailable [phone] Allergies Active Allergy Reactions Criticality Noted Date [...] puffs into the lungs 2 times daily Active calcium-vitamin D (CALTRATE) 600-400 MG-UNIT per tablet Take 1 tablet by mouth daily Active multivitamin, therapeutic with minerals (MULTI-VITAMIN) TABS Take 1 tablet by mouth daily Active PREDNISONE PO 20 mg for 5 days, then 10 mg for 5 days, then 10 mg every other day for 5 days - for asthma flareup - PRN Active clopidogrel (PLAVIX) 75 MG tablet Take 75 mg by mouth 01/06/2023 Act cole ezetimibe (ZETIA) 10 MG tablet Take 1 tablet by mouth daily 01/06/2023 Active metoprolol succinate ER (TOPROL XL) 25 MG 24 hr tablet Take 25 mg by mouth daily 01/06/2023 Active nitroGLYcerin (NITROSTAT) 0.[address] 0.4 mg under the tongue every 5 minutes as needed Active polyethylene glycol-propylene glycol (SYSTANE) 0.4-0.3 % SOLN ophthalmic solution Place 1 drop into both eyes 4 times daily Active cloNIDine (CATAPRES) 0.1 MG tablet Take 0.05 mg by mouth 2 times daily Pt takes 1/2 tablet (0.05 mg) BID (AM & PM) and an additional 1/2 tablet (0.05 mg) PRN 01/27/2023 Active predniSONE (DELTASONE) 5 MG tablet Take 5 mg by mouth every morning 12/20/2022 Active sertraline (ZOLOFT) 50 MG tablet Take 50 mg by mouth every evening 02/09/2023 Active levothyroxine (SYNTHROID/LEVOTHROID ) 25 MCG tablet Take 25 mcg by mouth every morning 12/20/2022 Active losartan (COZAAR) 25 MG tablet Take 25 mg by mouth 2 times daily Active LORazepam (ATIVAN) 0.5 MG tablet Take 0.5 mg by mouth as needed 04/30/2022 Active FLOVENT HFA 110 MCG/ACT inhaler Inhale 2 puffs into the lungs 2 times daily 02/21/2023 Active calcium carbonate (TUMS) 500 MG chewable tablet Take 500 mg by mouth as needed for heartburn Active omeprazole (PRILOSEC) [address] capsule Take 40 mg by mouth 2 times daily Active UNABLE TO FIND Lactace With Dairy Products Active chlorpheniramine (CHLOR-TRIMETON) 4 MG tablet Take 4 mg by mouth 02/23/2022 Active sodium chloride (OCEAN) 0.65 % nasal spray .prn 01/28/2022 Active artificial tears (GENTEAL) 0.1-0.2-0.3 % ophthalmic solution 1 drop daily as needed for dry eyes Active Active Problems Problem Noted Date Diagnosed [...] Encounters Date Type Department Care Team Description 07/15/2023 9:15 AM [facility]CTIONE[facility] Office Visit [place] [id number] [address] Sakina Osborne APRN CNP Dankle, Constance Jennifer, DO Coronary artery disease involving [place] coronary artery of [place] heart without angina pectoris 07/15/2023 Travel from Last 3 Months Social History [...] Sign Reading Time Taken Comments Blood Pressure 146/72 07/15/2023 8:59 AM [facility] Pulse 70 07/15/2023 8:59 AM [facility] Temperature 36.3 ??C (97.4 ??F) 02/02/2013 7:50 AM CD T Respiratory Rate 27 11/25/2017 9:21 AM CDT Oxygen Saturation 98% 07/15/2023 8:59 AM [facility] Inhaled Oxygen Concentration - - Weight 51.9 kg (114 lb 8 oz) 07/15/2023 8:59 AM [facility] Height 147.3 cm (4' 10) 07/15/2023 8:59 AM [facility] Body Mass Index 23.93 07/15/2023 8:59 AM [facility] Plan of Treatment Health Maintenance Due Date [...] PHQ-2 (once per calendar year) 2023 02/25/2023 COVID-19 Vaccine ( season) 2023 03/17/2023, 03/23/2022, 03/19/2021, Additional history exists BMP 11/01/2023 05/02/2023, 01/14, 01/29/2013 ALT 01/25/2024 01/24/2023, 01/29/2013 CBC 01/25/2024 01/24/2023, 01/14, 01/29/2013 LIPID 01/25/2024 01/24/2023 Pneumococcal Vaccine: 65+ Years Completed 06/16/2017, 09/05/2014, 02/08/2007, Additional history exists INFLUENZA VACCINE Completed 02/18/2023, , 02/27/2021, Additional history exists HPV IMMUNIZATION Aged Out [...] this topic Medical Devices Implanted Type Area Automotive Consultant Device Identifier Shelf Expiration Date Model / Serial / Lot Glenosphere 25mm Mini Baseplate Implanted:Qty: 1 on 01/30/2013 by Jc Farr MD at [facility] Right: Shoulder 11/12/2022 [id number] / / [id number] Humeral Bearing Standard 44-36mm Implanted:Qty: 1 on 01/30/2013 by Jc Farr MD at [facility] Right: Shoulder 10/12/2017 [id number] / / [id number] Implanted:Qty: 1 on 01/30/2013 by Jc Farr MD at [facility] Right: Shoulder 10/12/2022 [id number] / / [id number] 3.5 Hex Fixed Locking Screw [id number] Implanted:Qty: 1 on 01/30/2013 by Jc Farr MD at [facility] Right: Shoulder 12/12/2022 [id number] / / [id number] Fixed Hex Locking Screw Implanted:Qty: 1 on 01/30/2013 by Jc Farr MD at [facility] Right: Shoulder 12/12/2022 [id number] / / [id number] Hex Fixed Locking Screw Implanted:Qty: 1 on 01/30/2013 by Jc Farr MD at [facility] Right: Shoulder 12/12/2022 [id number] / / [id number] Fixed Locking Screw Implanted:Qty: 1 on 01/30/2013 by Jc Farr MD at [facility] Right: Shoulder 12/12/2022 [id number] / / [id number] Glenosphere 36mm Curve/Standard Implanted:Qty: 1 on 01/30/2013 by Jc Farr MD at [facility] Right: Shoulder 12/12/2022 [id number] / / [id number] 9x83mm Shoulder Stem Implanted:Qty: 1 on 01/30/2013 by Jc Farr MD at [facility] Right: Shoulder 10/12/2022 [id number] / / [id number] Humeral Tray 44mm Standard Implanted:Qty: 1 on 01/30/2013 by Jc Farr MD at [facility] Right: Shoulder 12/12/2022 [id number] / / [id number] Procedures Procedure Name Priority Date/Time Associated Diagnosis Comments BASIC METABOLIC PANEL Routine 05/02/2023 9:54 AM [facility] Chronic systolic congestive heart failure (H) Ischemic cardiomyopathy CBC WITH PLATELETS & DIFFERENTIAL Routine 01/24/2023 8:51 AM CDT LIPID PROFILE Routine 01/24/2023 8:51 AM CDT HEPATIC FUNCTION PANEL Routine 01/24/2023 8:51 AM CDT from Last 3 Months or Most Recently Relevant to Health Maintenance Results * (ABNORMAL) Basic metabolic panel (05/02/2023 9:54 AM [facility]) [facility] Sodium 141 135 - 145 mmol/L 05/02/2023 10:57 AM [facility] Comment:Reference intervals for this test were updated on 02/08/2023 to more accurately reflect our healthy population. There may be differences in the flagging of prior results with similar values performed with this method. Interpretation of those prior results can be made in the context of the updated reference intervals. Potassium 4.6 3.4 - 5.3 mmol/L 05/02/2023 10:57 AM [facility] Chloride 102 98 - 107 mmol/L 05/02/2023 10:57 AM [facility] Carbon Dioxide (CO2) 30(H) 22 - 29 mmol/L 05/02/2023 10:57 AM [facility] Anion Gap 9 7 - 15 mmol/L 05/02/2023 10:57 AM [facility] Urea Nitrogen 16.5 8.0 - 23.0 mg/dL 05/02/2023 10:57 AM [facility] Creatinine 0.89 0.51 - 0.95 mg/dL 05/02/2023 10:57 AM [facility] GFR Estimate 63 >60 mL/min/1. 73m2 05/02/2023 10:57 AM [facility] Calcium 9.3 8.8 - 10.2 mg/dL 05/02/2023 10:57 AM [facility] Glucose 165(H) 70 - 99 mg/dL 05/02/2023 10:57 AM [facility] Blood STRUCTURE OF LEFT UPPER LIMB / Unknown Venipuncture / Unknown 05/02/2023 9:54 AM [facility] 05/02/2023 9:54 AM [facility] Brian Abreu MD LAB - BLOOD ORDERABL ES LABORATORY [facility] [address] [facility] (1st floor, no room number) [place] [address], [facility] [phone] * (ABNORMAL) CBC with Platelets & Differential [...] Provider Outside LAB - BLOOD ORDERABL ES Performing Organization Address [facility] Co de Phone Number BREEZE PFT NON-INTERFACED (ONBASE SCANS) * Lipid Profile [...] LAB - BLOOD ORDERABL Performing Organization Address [facility] de Phone Number GENAROEZE PFT NON-INTERFACED (ONBASE [...] Outside LAB - BLOOD ORDERABL ES CITLALY PFSuzanna NON-INTERFACED (ONBASE SCANS) from Last 3 Months or Most Recently Relevant to Health Maintenance Advance Directives For more information, please contact: [phone] * DNR/DNI (Latest Code Status on File) Date Activated Date Inactivated Comments 01/30/2013 12:12 PM 02/02/2013 12:40 PM Care Teams Resolution Rep Relationship Specialty Start Date End Date Loren Beyer MD [facility] [address] [place] [address] PCP - General Family Practice 11/15/17 Teresa Chiu, RN Registered Nurse Cardiology 07/15/23 Meenu Denis DO [address] [place] [address] Assigned Heart and Vascular Provider 07/29/23
--- OUTSIDE RECORDS SUMMARY | 2023-09-07 11:39 | XMS_ITS | Clinical Summary ---
Author Name Unknown Organization [facility] Address [place], [place] [address] Care Team Providers Care Bristle Machine Operator Name Role Phone Loren Beyer MD Primary [...] 01/30/2018 Atorvastatin Lisinopril 01/05/2008 Periorbital rash Calcitonin ([place]) Nsaids (Non-Steroidal Anti-Inflammatory Drug) Aspirin Contraindication (for [...] mouth each time if needed for Anxiety. 08/03/2016 Active FLOVENT HFA 110 mcg/actuation inhaler Take 2 Puffs by mouth 2 times daily. 06/15/2016 Active cloNIDine HCL (CATAPRES) 0.1 mg tablet 1/2 tablet (0.05 mg) in AM, 1 tablet (0.1 mg) in PM Active multivitamins-minerals- lutein (Multivitamin 50 Plus) tab tablet Take 1 Tablet by mouth once daily with lunch. Active levothyroxine (Synthroid) 25 mcg tablet Take 25 mcg by mouth once daily in the evening. Active omeprazole (PRILOSEC) 40 mg Delayed-Release capsule Take 40 mg by mouth two times daily. Active predniSONE (DELTASONE) 5 mg tablet Take 5 mg by mouth once daily with a meal. Active albuterol HFA (ProAir HFA) 90 mcg/actuation inhaler Inhale 2 Puffs by mouth two times daily. Active sertraline (ZOLOFT) 50 mg tablet Take 50 mg by mouth once daily. Active calcium carbonate (Tums) 200 mg calcium (500 mg) chewable tablet Chew 500 mg by mouth 3 times daily if needed for GI Upset or Heartburn. Active chlorpheniramine (CHLOR-TRIMETON) 2 mg as half tablet Take 2 mg by mouth every 4 hours if needed. Active artificial tears, peg 400 0.4%-propylene glycol 0.3%, (Systane, propylene glycoL,) ophthalmic Place 1-2 Drops into both eyes 4 times daily if needed for Dry Eyes. Active clopidogreL (PLAVIX) 75 mg tabletIndications:S/P drug eluting coronary stent placement Take 1 Tablet (75 mg) by mouth once daily. *Cardiac stents 01/04/2023* 90 Tablet 3 01/06/2023 Active ezetimibe (ZETIA) 10 mg tabletIndications:Hyper lipidemia LDL goal <70 Take 1 Tablet (10 mg) by mouth once daily. 90 Tablet 3 01/06/2023 Active nitroglycerin (NITROSTAT) 0.4 mg sublingual tabletIndications:Coron wilner artery disease involving [place] coronary artery of [place] heart with unstable angina pectoris (HC) Place [...] w/ staged PCI later on 01/04/2023 d/t [facility] Coronary artery disease invo lving [place] coronary artery of [place] heart with unstable angina pectoris 01/04/2023 Overview: STEMI s/p ARI x2 to proximal and mid LAD (01/04/2023) w/ staged PCI later on 01/04/2023 d/t [facility] S/P drug eluting coronary stent placement 2022 Overview: STEMI s/p ARI x2 to proximal and mid LAD (01/04/2023) w/ staged PCI later on 01/04/2023 d/t [facility] Hyperlipidemia LDL goal <70 01/04/2023 Statin intolerance [...] Health Maintenance Due Date Last Done Comments Tdap 10/10/1946 Depression screening for age 12+ 1948 Tetanus booster 1956 Zoster (shingles) series for age 50+ (1 of 2) 1986 Pneumococcal series for age 65+ (2 of 2 - PCV) 02/09/2008 02/08/2007 BMI (ht and wt on same day) for age 18+ 01/30/2019 01/30/2018, 08/26/2016 COVID-19 vaccine series ( season) 2023 Influenza for age 65+ 01/15/2024 04/11/2009 , 02/06/2009, 03/08/2008, Additional history exists DEXA/DXA scan for age 65+ Completed 2014, 11/28/2009, 11/16/2007 Procedures Procedure Name Priority Date/Time Associated Diagnosis Comments SCAN-BONE DENSITOMETRY DEXA 02/20/2015 12:00 AM CDT from Last 3 Months or Most Recently Relevant to Health Maintenance Results * SCAN-BONE DENSITOMETRY DEXA (02/20/2015 12:00 AM CDT) Anatomical Region Laterality Modality Other Scanner OTHER from Last 3 Months or Most Recently Relevant to Health Maintenance Advance Directives * Full Code (Latest Code Status on File) Date Activated Date Inactivated Comments 01/05/2023 9:39 AM 01/06/2023 5:35 PM Question Answer Comments Code Status Discussion: Reviewed Preferences * Full Code Date Activated Date Inactivated Comments 01/04/2023 5:03 AM 01/05/2023 9:39 AM Question Answer Comments Code Status Discussion: Unable to Assess Preferences, Provider to review later Care Teams Bristle Machine Operator Relationship Specialty Start Date End Date Loren Beyer MD [address] [place] [address] PCP - General Family Practice 10/20/16
--- OUTSIDE RECORDS SUMMARY | 2023-09-07 11:39 | XMS_ITS | Encounter Summary ---
Author Name Unknown Organization [place] Address [address] [facility] [place] [address] Care Team Providers Care Bottler Helper Name Role Phone Loren Beyer MD Primary Care Provider + Sakina Osborne APRN [employer] C[employer]URIST Unavailable [phone] Teresa Chiu RN Unavailable Unavaila ble Encounter Details Date Type Department Care Team (Latest Contact Info) Description 07/15/2023 Travel Social History Tobacco Use Types Packs/Day [...] this encounter Plan of Treatment Not on file documented as of this encounter Visit Diagnoses Not on filedocumented in this encounter Care Teams Bottler Helper Relationship Specialty Start Date End Date Loren Beyer MD [facility] [address] [place] [address] PCP - General Family Practice 11/15/17 Sakina Osborne, JORDON [employer]I CULTURIST [address] [place] [address] Assigned Heart and Vascular Provider 05/07/23 07/28/23 Teresa Chiu, RN Registered Nurse Cardiology 07/15/23 documented as of this encounter
--- OUTSIDE RECORDS SUMMARY | 2023-09-07 11:39 | XMS_ITS | Encounter Summary ---
Author Name Unknown Organization [place] Address [address] [facility] [place] [address] Care Team Providers Care Business Programmer Name Role Phone Loren Beyer MD Primary Care Provider + Sakina Osborne APRN SCREW REMOVER Unavailable [phone] Teresa Chiu RN Unavailable Unavaila ble Reason for Referral * Consultation (Routine: Next available opening) - Pending Review Specialty Diagnoses / Procedures Referred By Lukasz t Referred To Contact Cardiovascular Disease Diagnoses Coronary artery disease involving [place] coronary artery of [place] heart without angina pectoris Meenu Denis DO [address] [facility] [facility] [address] [place] [address] Referral ID Status Reason Start Date Expiration Date V isits Requested Visits Authorized [id number] Pending Review 07/15/2023 07/14/2024 1 1 Question Answer Follow-up with: Self Scheduling Instructions: [facility] will call you to coordinate your care as prescribed by your provider. If you have concerns about scheduling, please call [phone]. Comments [facility] will call you to coordinate your care as prescribed by your provider. If you have concerns about scheduling, please call [phone]. RGY AND IMMUNOLOGY CHIEF Reason for Visit * Reason Comments Follow Up * Consultation (Routine: Next available opening) - Pending Review Specialty Diagnoses / Procedures Referred By Lukasz t Referred To Contact Cardiovascular Disease Diagnoses Coronary artery disease involving [place] coronary artery of [place] heart without angina pectoris Dylon October, SPECIAL ED ASSISTANT SCREW REMOVER [address] [place] [address] Referral ID Status Reason Start Date Expiration Date V isits Requested Visits Authorized [id number] Pending Review 05/02/2023 05/01/2024 1 1 Encounter Details Date Type Department Care Team (Late st Contact Info) Description 07/15/2023 9:15 AM ALLERGY AND IMMUNOLOGY CHIEF Office Visit [facility] [address] [facility] [address] [place] [id number] Dylon October, SPECIAL ED ASSISTANT SCREW REMOVER [address] [place] [id number] Meenu Denis DO [address] [place] [address] Coronary artery disease involving [place] coronary artery of [place] heart without angina pectoris Social History Tobacco Use Types Packs/Day Years [...] Comments Blood Pressure 146/72 07/15/2023 8:59 AM ALLERGY AND IMMUNOLOGY CHIEF Pulse 70 07/15/2023 8:59 AM ALLERGY AND IMMUNOLOGY CHIEF Temperature - - Respiratory Rate - - Oxygen Saturation 98% 07/15/2023 8:59 AM ALLERGY AND IMMUNOLOGY CHIEF Inhaled Oxygen Concentration - - Weight 51.9 kg (114 lb 8 oz) 07/15/2023 8:59 AM ALLERGY AND IMMUNOLOGY CHIEF Height 147.3 cm (4' 10) 07/15/2023 8:59 AM ALLERGY AND IMMUNOLOGY CHIEF Body Mass Index 23.93 07/15/2023 8:59 AM ALLERGY AND IMMUNOLOGY CHIEF documented in this encounter Progress Notes * Meenu Denis, DO - 07/15/2023 9:15 AM CST HPI and Plan: Fawad Unger is a 87 year old female who presents with history of coronary artery disease and anterior STEMI in December 2022. She underwent revascularization of her proximal to mid LAD and then astaged mid RCA through the [facility] system. Initial LV function was depressed with an EF of 30 to 35%but this did recover post revascularization on echo in March 2023 her EF was 60 to 65%, RV function was normal and there is no significant valve pathology. She is unable to take aspirin because ofa severe lifelong history of asthma. She is currently on Plavix alone and has done well with this. She has had sharp chest pains periodically and she has been taking nitroglycerin even though they spo ntaneously resolved within a few seconds. We did discuss when to use nitroglycerin and how today. She had several concerns in regards to medications and recommendations for cardiac rehab. She is verylimited in her mobility in the sense of getting to appointments so she is unable to go to cardiac rehab on a regular basis. 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 She has also been struggling with nosebleeds since being on Plavix. This is occurred on more than a couple occasions and she has had nosebleeds inthe past even prior to starting Plavix that landed her in the hospital. She did have recent blood work drawn a few weeks ago including CBC and her hemoglobin and platelet counts are normal. A basic metabolic panel in April was normal with normal kidney function. We spent a lot of time today discussing her medications and her previous health history lifelong standing asthma and chronic prednisone use and complications from this. Exam today reveals a normal sinus rhythm without heart murmur, lung paul clear without wheezing and no peripheral edema Summary 1. Coronary artery disease with anterior RI-status post revascularization of her LAD and RCA on Plavix only due to aspirin allergy. She seems to be doing well with atypical sharp fleeting chest painson occasion. We reviewed use of sublingual nitroglycerin and when to seek medical evaluation today.She is intolerant to statins but remains on Zetia 2. Ischemic cardiomyopathy-LV dysfunction has resolved post revascularization and she appears compensated on exam recommend to continue metoprolol and losartan 3. Epistasis-she will need to stay on Plavix lifelong, I would like her to see an ENT specialist since she is having recurrent nosebleeds. I stressed the importance as she will likely continue to have difficulty with nosebleeds on Plavix I will be happy to see her back annually or as needed, please feel free to contact me with any questions given regards to her care Today's clinic visit entailed: Review of external notes as documented elsewhere in note Review of the result(s) of each unique test - CBC, Echo 35 minutes spent by me on the date of the encounter doing chart review, history and exam, documentation and further activities per the note Provider Link to [facility] Help Grid The level of medical decision making during this visit was of moderate complexity. No orders of the defined types were placed in this encounter. No orders of the defined types were placed in this encounter. There are no discontinued medications. Encounter Diagnosis Name Primary? Coronary artery disease involving [place] coronary artery of [place] heart without angina pectoris CURRENT MEDICATIONS: Current Outpatient Medications Medication Sig Dispense Refill albuterol (PROAIR HFA, PROVENTIL HFA, VENTOLIN HFA) 108 (90 BASE) MCG/ACT inhaler Inhale 2 puffs into the lungs 2 times daily artificial tears (GENTEAL) 0.1-0.2-0.3 % ophthalmic solution 1 drop daily as needed for dry eyes calcium carbonate (TUMS) 500 MG chewable tablet Take 500 mg by mouth as needed for heartburn calcium-vitamin D (CALTRATE) 600-400 MG-UNIT per tablet Take 1 tablet by mouth daily chlorpheniramine (CHLOR-TRIMETON) 4 MG tablet Take 4 mg by mouth cloNIDine (CATAPRES) 0.1 MG tablet Take 0.05 mg by mouth 2 times daily Pt takes 1/2 tablet (0.05 mg) BID (AM & PM) and an additional 1/2 tablet (0.05 mg) PRN clopidogrel (PLAVIX) 75 MG tablet Take 75 mg by mouth ezetimibe (ZETIA) 10 MG tablet Take 1 tablet by mouth daily FLOVENT HFA 110 MCG/ACT inhaler Inhale 2 puffs into the lungs 2 times daily levothyroxine (SYNTHROID/LEVOTHROID) 25 MCG tablet Take 25 mcg by mouth every morning LORazepam (ATIVAN) 0.5 MG tablet Take 0.5 mg by mouth as needed losartan (COZAAR) 25 MG tablet Take 25 mg by mouth 2 times daily metoprolol succinate ER (TOPROL XL) 25 MG 24 hr tablet Take 25 mg by mouth daily multivitamin, therapeutic with minerals (MULTI-VITAMIN) TABS Take 1 tablet by mouth daily nitroGLYcerin (NITROSTAT) 0.[address] 0.4 mg under the tongue every 5 minutes asneeded omeprazole (PRILOSEC) [address] capsule Take 40 mg by mouth 2 times daily polyethylene glycol-propylene glycol (SYSTANE) 0.4-0.3 % SOLN ophthalmic solution Place 1 drop intoboth eyes 4 times daily predniSONE (DELTASONE) 5 MG tablet Take 5 mg by mouth every morning PREDNISONE PO 20 mg for 5 days, then 10 mg for 5 days, then 10 mg every other day for 5 days - for asthma flareup - PRN sertraline (ZOLOFT) 50 MG tablet Take 50 mg by mouth every evening sodium chloride (OCEAN) 0.65 % nasal spray .prn UNABLE TO FIND Lactace With Dairy Products ALLERGIES Allergies Allergen Reactions Food Any contact [...] Shoulder Arthroplasty; Surgeon: Jc Farr MD; Location: OR TONSILLECTOMY & ADENOIDECTOMY FAMILY HISTORY: History reviewed. No pertinent family history. SOCIAL HISTORY: Social History Socioeconomic History Marital status: Spouse name: None Number of children: None Years of education: None Highest education level: None Tobacco Use Smoking status: Never Smokeless tobacco: Never Substance and Sexual Activity Alcohol use: No Drug use: No Review of Systems: Skin: Eyes: ENT: Positive for epistaxis Respiratory: Positive for dyspnea on exertion;cough;clear expectorant Cardiovascular: chest pain;Positive for;heaviness Gastroenterology: Genitourinary: Musculoskeletal: Neurologic: Psychiatric: Heme/Lymph/Imm: Endocrine: Physical Exam: Vitals: BP (!) 146/72 (BP Location: Right arm, Patient Position: Sitting, Cuff Size: Adult Regular) Pulse 70 Ht 1.473 m (4' 10) Wt 51.9 kg (114 lb 8 oz) SpO2 98% BMI 23.93 kg/m?? Constitutional: cooperative Skin: warm and dry [...] appropriate Psych: Alert and Oriented x 3 Recent Lab Results: LIPID RESULTS: Lab Results Component Value Date TRIG 60 01/24/2023 LIVER ENZYME RESULTS: Lab Results Component Value Date AST 28 01/29/2013 ALT 30 01/29/2013 CBC RESULTS: Lab Results Component Value Date WBC 12.4 (H) 02/01/2013 RBC 4.28 02/01/2013 HGB 11.0 (L) 02/01/2013 HCT 34.3 (L) 02/01/2013 MCV 80 02/01/2013 MCH 25.7 (L) 02/01/2013 MCHC 32.1 02/01/2013 RDW 16.2 (H) 02/01/2013 PLT 178 02/02/2013 BMP RESULTS: Lab Results Component Value Date NA 141 05/02/2023 NA 139 01/29/2013 POTASSIUM 4.6 05/02/2023 POTASSIUM 4.0 01/29/2013 CHLORIDE 102 05/02/2023 CHLORIDE 101 01/24/2023 CHLORIDE 101 01/29/2013 CO2 30 (H) 05/02/2023 CO2 31 01/29/2013 ANIONGAP 9 05/02/2023 ANIONGAP 7 01/29/2013 GLC 165 (H) 05/02/2023 GLC 108 (H) 02/01/2013 BUN 16.5 05/02/2023 BUN 16 01/29/2013 CR 0.89 05/02/2023 CR 0.64 01/30/2013 GFRESTIMATED 63 05/02/2023 GFRESTIMATED 70 07/20/2013 GFRESTBLACK 84 07/20/2013 KARY 9.3 05/02/2023 KARY 8.9 01/29/2013 A1C RESULTS: No results found for: A1C INR RESULTS: Lab Results Component Value Date INR 0.95 01/29/2013 CC Loren Beyer MD [facility] [place] [address] . RGY AND IMMUNOLOGY CHIEF documented in this encounter Plan of Treatment Scheduled Referrals Name Type Priority Associated Diagnoses Orde r Schedule Follow-Up with Cardiology Referral Routine: Next available opening Coronary artery disease involving [place] coronary artery of sag[place] heart without angina pectoris Expected: 07/14/2024 (Approximate), Expires: 07/14/2024 documented as of this encounter Visit Diagnoses Diagnosis Coronary artery disease involving [place] coronary artery of [place] heart without angina pectoris documented in this encounter Care Teams Business Programmer Relationship Specialty Start Date End Date Loren Beyer MD [facility] [address] [place] [address] PCP - General Family Practice 11/15/17 Sakina Osborne, SPECIAL ED ASSISTANT [facility] [address] [place] [address] Assigned Heart and Vascular Provider 05/07/23 07/28/23 Teresa Chiu, RN Registered Nurse Cardiology 07/15/23 documented as of this encounter
--- OUTSIDE RECORDS SUMMARY | 2023-09-07 11:39 | XMS_ITS | Referral Summary ---
Author Name Unknown Organization [place] Address [address] [facility] [place] [address] Care Team Providers Care Aws Consultant Name Role Phone Loren Beyer MD Primary Care Provider + Teresa Chiu RN Unavailable Unavaila Meenu Alves DO Unavailable [phone] Encounters Date Type Department Care Team Description 07/15/2023 Travel 07/15/2023 9:15 AM WADER BOOT TOP ASSEMBLER Office Visit [facility] [address] [place] [address] Sakina Osborne APRN CNP Dankle, Constance Jennifer, Coronary artery disease involving [place] coronary artery of che[place]vi heart without angina pectoris from Last 3 Months Allergies Active Allergy [...] Comments Blood Pressure 146/72 07/15/2023 8:59 AM WADER BOOT TOP ASSEMBLER Pulse 70 07/15/2023 8:59 AM WADER BOOT TOP ASSEMBLER Temperature 36.3 ??C (97.4 ??F) 02/02/2013 7:50 AM CD T Respiratory Rate 27 11/25/2017 9:21 AM CDT Oxygen Saturation 98% 07/15/2023 8:59 AM WADER BOOT TOP ASSEMBLER Inhaled Oxygen Concentration - - Weight 51.9 kg (114 lb 8 oz) 07/15/2023 8:59 AM WADER BOOT TOP ASSEMBLER Height 147.3 cm (4' 10) 07/15/2023 8:59 AM WADER BOOT TOP ASSEMBLER Body Mass Index 23.93 07/15/2023 8:59 AM WADER BOOT TOP ASSEMBLER Plan of Treatment Not on file Medical Devices Implanted Type Area Woodworking Machine Offbearer Device Identifier Shelf Expiration Date Model / Serial / Lot Glenosphere 25mm Mini Baseplate Implanted:Qty: 1 on 01/30/2013 by Jc Farr MD at [facility] Right: Shoulder 11/12/2022 [id number] / / [id number] Humeral Bearing Standard 44-36mm Implanted:Qty: 1 on 01/30/2013 by Jc Farr MD at [facility] Right: Shoulder 10/12/2017 [id number] / / [id number] Implanted:Qty: 1 on 01/30/2013 by Jc Farr MD at [facility] Right: Shoulder 10/12/2022 [id number] / / [id number] 3.5 Hex Fixed Locking Screw [id number] Implanted:Qty: 1 on 01/30/2013 by Jc Farr MD at [facility] Right: Shoulder 12/12/2022 [id number] / / [id number] Fixed Hex Locking Screw Implanted:Qty: 1 on 01/30/2013 by Jc Farr MD at [facility] Right: Shoulder 12/12/2022 [id number] / / [id number] Hex Fixed Locking Screw Implanted:Qty: 1 on 01/30/2013 by Jc Farr MD at [facility] Right: Shoulder 12/12/2022 [id number] / / [id number] Fixed Locking Screw Implanted:Qty: 1 on 01/30/2013 by Jc Farr MD at [facility] Right: Shoulder 12/12/2022 [id number] / / [id number] Glenosphere 36mm Curve/Standard Implanted:Qty: 1 on 01/30/2013 by Jc Farr MD at [facility] Right: Shoulder 12/12/2022 [id number] / / [id number] 9x83mm Shoulder Stem Implanted:Qty: 1 on 01/30/2013 by Jc Farr MD at [facility] Right: Shoulder 10/12/2022 [id number] / / [id number] Humeral Tray 44mm Standard Implanted:Qty: 1 on 01/30/2013 by Jc Farr MD at [facility] Right: Shoulder 12/12/2022 [id number] / / [id number] Procedures Procedure Name Priority Date/Time Associated Diagnosis Comments BASIC METABOLIC PANEL Routine 05/02/2023 9:54 AM WADER BOOT TOP ASSEMBLER Chronic systolic congestive heart failure (H) Ischemic cardiomyopathy CBC WITH PLATELETS & DIFFERENTIAL Routine 01/24/2023 8:51 AM CDT LIPID PROFILE Routine 01/24/2023 8:51 AM CDT HEPATIC FUNCTION PANEL Routine 01/24/2023 8:51 AM CDT from Last 3 Months or Most Recently Relevant to Health Maintenance Results * (ABNORMAL) Basic metabolic panel (05/02/2023 9:54 AM WADER BOOT TOP ASSEMBLER) Pathologist [facility] Sodium 141 135 - 145 mmol/L 05/02/2023 10:57 AM [facility] Comment:Reference intervals for this test were updated on 02/08/2023 to more accurately reflect our healthy population. There may be differences in the flagging of prior results with similar values performed with this method. Interpretation of those prior results can be made in the context of the updated reference intervals. Potassium 4.6 3.4 - 5.3 mmol/L 05/02/2023 10:57 AM [facility] Chloride 102 98 - 107 mmol/L 05/02/2023 10:57 AM [facility] Carbon Dioxide (CO2) 30(H) 22 - 29 mmol/L 05/02/2023 10:57 AM [facility] Anion Gap 9 7 - 15 mmol/L 05/02/2023 10:57 AM [facility] Urea Nitrogen 16.5 8.0 - 23.0 mg/dL 05/02/2023 10:57 AM [facility] Creatinine 0.89 0.51 - 0.95 mg/dL 05/02/2023 10:57 AM [facility] GFR Estimate 63 >60 mL/min/1. 73m2 05/02/2023 10:57 AM [facility] Calcium 9.3 8.8 - 10.2 mg/dL 05/02/2023 10:57 AM [facility] Glucose 165(H) 70 - 99 mg/dL 05/02/2023 10:57 AM [facility] Blood STRUCTURE OF LEFT UPPER LIMB / Unknown Venipuncture / Unknown 05/02/2023 9:54 AM WADER BOOT TOP ASSEMBLER 05/02/2023 9:54 AM [facility] Brian Abreu MD LAB - BLOOD ORDERABL ES LABORATORY [facility] [address] [facility] (1st floor, no room number) [place] [address], [facility] [phone] * (ABNORMAL) CBC with Platelets & Differential [...] - BLOOD ORDERABL ES Performing Organization Address [facility] Co de Phone Number GENAROEZE PFT NON-INTERFACED (ONBASE SCANS) * Lipid Profile [...] 02/03/2023 4:02 PM CDT Verified by Lolita Rhoeds on 02/03/2023. Provider Outside LAB - BLOOD ORDERABL Performing Organization Address [facility] Phone Number JARRODE PFT NON-INTERFACED (ONBASE SCANS) * Hepatic function [...] ORDERABL ES CITLALY PFT NON-INTERFACED (ONBASE SCANS) from Last 3 Months or Most Recently Relevant to Health Maintenance Advance Directives For more information, please contact: [phone] * DNR/DNI (Latest Code Status on File) Date Activated Date Inactivated Comments 01/30/2013 12:12 PM 02/02/2013 12:40 PM Care Teams Aws Consultant Relationship Specialty Start Date End Date Loren Beyer MD [facility] [address] [place] [address] PCP - General Family Practice 11/15/17 Teresa Chiu, HEENA Registered Nurse Cardiology 07/15/23 Meenu Denis DO [address] [place] [address] Assigned Heart and Vascular Provider 07/29/23
--- OUTSIDE RECORDS SUMMARY | 2023-09-07 11:39 | XMS_ITS | Encounter Summary ---
Author Name Unknown Organization [place] Address [address] [facility] [place] [address] Care Team Providers Care Composite Layup Worker Name Role Phone Loren Beyer MD Primary Care Provider + Brian Abreu MD Unavailable Sakina Osborne APRN TAPE DECK INSTALLER Unavailable [phone] Teresa Chiu RN Unavailable Unavaila Meenu Alves DO Unavailable [phone] Encounter Details Date Type Department Care Team (Late st Contact Info) Description 01/24/2023 External Order Results [facility] [address] [place] [address] Outside, Provider Social History Tobacco Use Types [...] on file documented as of this encounter Procedures Procedure [...] ORDERABL ES CITLALY PFT NON-INTERFACED (ONBASE SCANS) * Hepatic function [...] - BLOOD ORDERABL ES Performing Organization Address [facility]/ZIP Co de Phone Number BREEZE PFT NON-INTERFACED [...] on filedocumented in this encounter Care Teams Composite Layup Worker Relationship Specialty Start Date End Date Loren Beyer MD [facility] [address] [address] PCP - General Family Practice 11/15/17 Brian Abreu MD [address] [place] [address] [place] [id number] Assigned Heart and Vascular Provider 02/26/23 05/06/23 Sakina Osborne, JORDON TAPE DECK INSTALLER [address] [place] [address] Assigned Heart and Vascular Provider 05/07/23 07/28/23 Teresa Chiu, RN Registered Nurse Cardiology 07/15/23 Meenu Denis DO [address] [place] [address] Assigned Heart and Vascular Provider 07/29/23 documented as of this encounter
== END 2023-09-05 09:46 | disposition home or self-care (01) ==
LOC: NFLDREF 09-07 11:33
PROVIDERS: PCP Family Medicine; Referring Provider Family Medicine; Visit Provider Family Medicine
DX: I10 Essential (primary) hypertension (principal); D50.9 Iron deficiency anemia, unspecified
CPT/HCPCS: 80053; 82728

== ENCOUNTER 2023-11-28 09:30 | Outpatient (CLI) | payer MEDICARE, OTHER, SELFPAY ==
--- OUTSIDE RECORDS SUMMARY | 2023-11-28 16:17 | XMS_ITS | Referral Summary ---
Author Organization [place] Address [address] [place] [address] Care Team Providers Care Irrigation Installation Specialist Name Role Phone Loren Beyer MD Primary Care Provider + Teresa Chiu RN Unavailable Unavaila Meenu Alves DO Unavailable [phone] Encounters Date Type Department Care Team Description 11/14/2023 MyC Medical Advice [facility] [address] [place] [address] Calin De Jesus RN from Last 3 Months Allergies Active Allergy [...] Comments Blood Pressure 146/72 07/15/2023 8:59 AM MARGIN ANALYST Pulse 70 07/15/2023 8:59 AM MARGIN ANALYST Temperature 36.3 ??C (97.4 ??F) 02/02/2013 7:50 AM CD T Respiratory Rate 27 11/25/2017 9:21 AM CDT Oxygen Saturation 98% 07/15/2023 8:59 AM MARGIN ANALYST Inhaled Oxygen Concentration - - Weight 51.9 kg (114 lb 8 oz) 07/15/2023 8:59 AM MARGIN ANALYST Height 147.3 cm (4' 10) 07/15/2023 8:59 AM MARGIN ANALYST Body Mass Index 23.93 07/15/2023 8:59 AM MARGIN ANALYST Plan of Treatment Not on file Medical Devices Implanted Type Area Musical Instrument Mechanic Device Identifier Shelf Expiration Date Model / Serial / Lot Glenosphere 25mm Mini Baseplate Implanted:Qty: 1 on 01/30/2013 by Jc Farr MD at [facility] Right: Shoulder 11/12/2022 [id number] / / [id number] Humeral Bearing Standard 44-36mm Implanted:Qty: 1 on 01/30/2013 by Jc Farr MD at [facility] Right: Shoulder 10/12/2017 [id number] / / [id number] Implanted:Qty: 1 on 01/30/2013 by Jc Farr MD at [facility] Right: Shoulder 10/12/2022 [id number] / / [id number] 3.5 Hex Fixed Locking Screw 4.62r20up Implanted:Qty: 1 on 01/30/2013 by Jc Farr MD at [facility] Right: Shoulder 12/12/2022 [id number] / / [id number] [id number] Fixed Hex Locking Screw Implanted:Qty: 1 on 01/30/2013 by Jc Farr MD at [facility] Right: Shoulder 12/12/2022 [id number] / / [id number] 4.68c47ob Hex Fixed Locking Screw Implanted:Qty: 1 on 01/30/2013 by Jc Farr MD at [facility] Right: Shoulder 12/12/2022 [id number] / / [id number] [id number] Fixed Locking Screw Implanted:Qty: 1 on 01/30/2013 by Jc Farr MD at [facility] Right: Shoulder 12/12/2022 [id number] / / [id number] Glenosphere 36mm Curve/Standard Implanted:Qty: 1 on 01/30/2013 by Jc Farr MD at [facility] Right: Shoulder 12/12/2022 [id number] / / [id number] 9x83mm Shoulder Stem Implanted:Qty: 1 on 01/30/2013 by Jc Farr MD at [facility] Right: Shoulder 10/12/2022 [id number] / / [id number] Humeral Tray 44mm Standard Implanted:Qty: 1 on 01/30/2013 by Jc Farr MD at [facility] Right: Shoulder 12/12/2022 [id number] / / [id number] Procedures Procedure Name Priority Date/Time Associated Diagnosis Comments BASIC METABOLIC PANEL Routine 05/02/2023 9:54 AM MARGIN ANALYST Chronic systolic congestive heart failure (H) Ischemic cardiomyopathy CBC WITH PLATELETS & DIFFERENTIAL Routine 01/24/2023 8:51 AM CDT LIPID PROFILE Routine 01/24/2023 8:51 AM CDT HEPATIC FUNCTION PANEL Routine 01/24/2023 8:51 AM CDT from Last 3 Months or Most Recently Relevant to Health Maintenance Results * (ABNORMAL) Basic metabolic panel (05/02/2023 9:54 AM MARGIN ANALYST) [facility] Sodium 141 135 - 145 mmol/L 05/02/2023 10:57 AM MARGIN ANALYST [facility] Comment:Reference intervals for this test were updated on 02/08/2023 to more accurately reflect our healthy population. There may be differences in the flagging of prior results with similar values performed with this method. Interpretation of those prior results can be made in the context of the updated reference intervals. Potassium 4.6 3.4 - 5.3 mmol/L 05/02/2023 10:57 AM [facility] Chloride 102 98 - 107 mmol/L 05/02/2023 10:57 AM [facility] Carbon Dioxide (CO2) 30(H) 22 - 29 mmol/L 05/02/2023 10:57 AM [facility] Anion Gap 9 7 - 15 mmol/L 05/02/2023 10:57 AM [facility] Urea Nitrogen 16.5 8.0 - 23.0 mg/dL 05/02/2023 10:57 AM [facility] Creatinine 0.89 0.51 - 0.95 mg/dL 05/02/2023 10:57 AM [facility] GFR Estimate 63 >60 mL/min/1. 73m2 05/02/2023 10:57 AM [facility] Calcium 9.3 8.8 - 10.2 mg/dL 05/02/2023 10:57 AM [facility] Glucose 165(H) 70 - 99 mg/dL 05/02/2023 10:57 AM [facility] Blood STRUCTURE OF LEFT UPPER LIMB / Unknown Venipuncture / Unknown 05/02/2023 9:54 AM MARGIN ANALYST 05/02/2023 9:54 AM [facility] Brian Abreu MD LAB - BLOOD ORDERABL ES LABORATORY [facility] Acute Care Lab [address] (1st floor, no room number) [place] [address], [facility] [phone] * (ABNORMAL) CBC with Platelets & Differential [...] - BLOOD ORDERABL ES Performing Organization Address [facility] Co de Phone Number CITLALY PFT NON-INTERFACED (ONBASE SCANS) * Lipid Profile [...] / Unknown 01/24/2023 8:51 AM CDT Myranda LAMEZE PFT - 02/03/2023 4:02 PM CDT Verified by Lolita Rhodes on 02/03/2023. Provider Outside LAB - BLOOD ORDERABL ES Performing Organization Address [facility] Phone Number JARRODE PFT NON-INTERFACED (ONBASE [...] Advance Directives For more information, please contact: [phone] * DNR/DNI (Latest Code Status on File) Date Activated Date Inactivated Comments 01/30/2013 12:12 PM 02/02/2013 12:40 PM Care Teams Irrigation Installation Specialist Relationship Specialty Start Date End Date Loren Beyer MD [facility] [address] [place] [address] PCP - General Family Practice 11/15/17 Teresa Chiu, RN Registered Nurse Cardiology 07/15/23 Meenu Denis DO [address] [place] [address] Assigned Heart and Vascular Provider 07/29/23
--- OUTSIDE RECORDS SUMMARY | 2023-11-28 16:17 | XMS_ITS | Clinical Summary ---
Author Organization [place] Address [address] [place] [address] Care Team Providers Care Sales Leader Name Role Phone Loren Beyer MD Primary Care Provider + Teresa Chiu RN Unavailable Unavaila Meenu Alves DO Unavailable [phone] Allergies Active Allergy Reactions Criticality Noted Date [...] Care Team Description 11/14/2023 MyC Medical Advice [facility] Heart [address] [address] Calin De Jesus RN from Last 3 Months Social History Tobacco [...] Comments Blood Pressure 146/72 07/15/2023 8:59 AM DEPUTY FIRE CHIEF Pulse 70 07/15/2023 8:59 AM DEPUTY FIRE CHIEF Temperature 36.3 ??C (97.4 ??F) 02/02/2013 7:50 AM CD T Respiratory Rate 27 11/25/2017 9:21 AM CDT Oxygen Saturation 98% 07/15/2023 8:59 AM DEPUTY FIRE CHIEF Inhaled Oxygen Concentration - - Weight 51.9 kg (114 lb 8 oz) 07/15/2023 8:59 AM DEPUTY FIRE CHIEF Height 147.3 cm (4' 10) 07/15/2023 8:59 AM DEPUTY FIRE CHIEF Body Mass Index 23.93 07/15/2023 8:59 AM DEPUTY FIRE CHIEF Plan of Treatment Health Maintenance Due Date Last Done Comments A1C 1936 ADVANCE CARE PLANNING 1936 ANNUAL REVIEW OF HM ORDERS 1936 ASTHMA ACTION PLAN 1936 ASTHMA CONTROL TEST 1936 DEXA 1936 DIABETIC FOOT EXAM 1936 EYE EXAM 1936 HF ACTION PLAN 1936 MICROALBUMIN 1936 TSH W/FREE T4 REFLEX 1936 DTAP/TDAP/TD IMMUNIZATION (1 - Tdap) 1961 ZOSTER IMMUNIZATION (1 of 2) 1986 RSV VACCINE ( & 60+) (1 - 1-dose 60+ series) 1996 FALL RISK ASSESSMENT 2001 MEDICARE ANNUAL WELLNESS VISIT 2001 PHQ-2 (once per calendar year) 2023 02/25/2023 COVID-19 Vaccine ( - 2022-24 season) 2023 03/17/2023, 03/23/2022, 03/19/2021, Additional history exists BMP 11/01/2023 05/02/2023, 01/14, 01/29/2013 INFLUENZA VACCINE (#1) 2024 , 03/03/2022, 02/27/2021, Additional history exists ALT 01/25/2024 01/24/2023, 01/29/2013 CBC 01/25/2024 01/24/2023, 01/14, 01/29/2013 LIPID 01/25/2024 01/24/2023 Pneumococcal Vaccine: 65+ Years Completed 06/16/2017, 09/05/2014, 02/08/2007, Additional history exists HPV IMMUNIZATION Aged Out [...] this topic Medical Devices Implanted Type Area Groundman Device Identifier Shelf Expiration Date Model / Serial / Lot Glenosphere 25mm Mini Baseplate Implanted:Qty: 1 on 01/30/2013 by Jc Farr MD at [facility] Right: Shoulder 11/12/2022 [id number] / / [id number] Humeral Bearing Standard 44-36mm Implanted:Qty: 1 on 01/30/2013 by Jc Farr MD at [facility] Right: Shoulder 10/12/2017 [id number] / / [id number] Implanted:Qty: 1 on 01/30/2013 by Jc Farr MD at [facility] Right: Shoulder 10/12/2022 [id number] / / [id number] 3.5 Hex Fixed Locking Screw 4.32c25ra Implanted:Qty: 1 on 01/30/2013 by Jc Farr MD at [facility] Right: Shoulder 12/12/2022 [id number] / / [id number] [id number] Fixed Hex Locking Screw Implanted:Qty: 1 on 01/30/2013 by Jc Farr MD at [facility] Right: Shoulder 12/12/2022 [id number] / / [id number] [id number] Hex Fixed Locking Screw Implanted:Qty: 1 on 01/30/2013 by Jc Farr MD at [facility] Right: Shoulder 12/12/2022 [id number] / / [id number] [id number] Fixed Locking Screw Implanted:Qty: 1 on 01/30/2013 by Jc Farr MD at [facility] Right: Shoulder 12/12/2022 [id number] / / [id number] Glenosphere 36mm Curve/Standard Implanted:Qty: 1 on 01/30/2013 by Jc Farr MD at [facility] Right: Shoulder 12/12/2022 [id number] / / [id number] 9x83mm Shoulder Stem Implanted:Qty: 1 on 01/30/2013 by Jc Farr MD at [facility] Right: Shoulder 10/12/2022 [id number] / / [id number] Humeral Tray 44mm Standard Implanted:Qty: 1 on 01/30/2013 by Jc Farr MD at [facility] Right: Shoulder 12/12/2022 [id number] / / [id number] Procedures Procedure Name Priority Date/Time Associated Diagnosis Comments BASIC METABOLIC PANEL Routine 05/02/2023 9:54 AM DEPUTY FIRE CHIEF Chronic systolic congestive heart failure (H) Ischemic cardiomyopathy CBC WITH PLATELETS & DIFFERENTIAL Routine 01/24/2023 8:51 AM CDT LIPID PROFILE Routine 01/24/2023 8:51 AM CDT HEPATIC FUNCTION PANEL Routine 01/24/2023 8:51 AM CDT from Last 3 Months or Most Recently Relevant to Health Maintenance Results * (ABNORMAL) Basic metabolic panel (05/02/2023 9:54 AM DEPUTY FIRE CHIEF) Sodium 141 135 - 145 mmol/L 05/02/2023 10:57 AM DEPUTY FIRE CHIEF [facility] Comment:Reference intervals for this test were updated on 02/08/2023 to more accurately reflect our healthy population. There may be differences in the flagging of prior results with similar values performed with this method. Interpretation of those prior results can be made in the context of the updated reference intervals. Potassium 4.6 3.4 - 5.3 mmol/L 05/02/2023 10:57 AM [facility] Chloride 102 98 - 107 mmol/L 05/02/2023 10:57 AM [facility] Carbon Dioxide (CO2) 30(H) 22 - 29 mmol/L 05/02/2023 10:57 AM [facility] Anion Gap 9 7 - 15 mmol/L 05/02/2023 10:57 AM [facility] Urea Nitrogen 16.5 8.0 - 23.0 mg/dL 05/02/2023 10:57 AM [facility] Creatinine 0.89 0.51 - 0.95 mg/dL 05/02/2023 10:57 AM [facility] GFR Estimate 63 >60 mL/min/1. 73m2 05/02/2023 10:57 AM [facility] Calcium 9.3 8.8 - 10.2 mg/dL 05/02/2023 10:57 AM [facility] Glucose 165(H) 70 - 99 mg/dL 05/02/2023 10:57 AM [facility] Blood STRUCTURE OF LEFT UPPER LIMB / Unknown Venipuncture / Unknown 05/02/2023 9:54 AM DEPUTY FIRE CHIEF 05/02/2023 9:54 AM [facility] Brian Abreu MD LAB - BLOOD ORDERABL ES LABORATORY [facility] Acute Care Lab [address] [facility] (1st floor, no room number) [place] [address] [phone] * (ABNORMAL) CBC with Platelets & Differential [...] - BLOOD ORDERABL ES Performing Organization Address City/[facility]/ZIP Co de Phone Number BREEZE PFT [...] / Unknown 01/24/2023 8:51 AM CDT Narrative JARRODE PFT - 02/03/2023 4:02 PM CDT Verified by Lolita Rhodes on 02/03/2023. Provider Outside LAB - BLOOD ORDERABL ES Performing Organization Address [facility] Co de Phone Number GENAROEZE PFT NON-INTERFACED [...] / Unknown 01/24/2023 8:51 AM CDT Narrative GENAROEZE PFT - 02/03/2023 4:02 PM CDT Verified by Lolita Rhodes on 02/03/2023. Provider Outside LAB - BLOOD ORDERABL ES BREEZJamie PFT NON-INTERFACED (ONBASE SCANS) from Last 3 Months or Most Recently Relevant to Health Maintenance Advance Directives For more information, please contact: [phone] * DNR/DNI (Latest Code Status on File) Date Activated Date Inactivated Comments 01/30/2013 12:12 PM 02/02/2013 12:40 PM Care Teams Sales Leader Relationship Specialty Start Date End Date Loren Beyer MD [facility] [address] [place] [address] PCP - General Family Practice 11/15/17 Teresa Chiu, HEENA Registered Nurse Cardiology 07/15/23 Meenu Denis DO [address] [place] [address] Assigned Heart and Vascular Provider 07/29/23
--- OUTSIDE RECORDS SUMMARY | 2023-11-28 16:17 | XMS_ITS | Encounter Summary ---
Author Organization [place] Address [address] [facility] [place] [address] Care Team Providers Care Belt Molder Name Role Phone Loren Beyer MD Primary Care Provider + Teresa Chiu RN Unavailable Unavaila Meenu Alves DO Unavailable [phone] Encounter Details Date Type Department Care Team (Late st Contact Info) Description 11/14/2023 MyC Medical Advice [facility] [address] [place] [address] Calin De Jesus, HEENA Social History Tobacco Use Types Packs/Day Years [...] on filedocumented in this encounter Care Teams Belt Molder Relationship Specialty Start Date End Date Loren Beyer MD [facility] [address] [place] [address] PCP - General Family Practice 11/15/17 Teresa Chiu, RN Registered Nurse Cardiology 07/15/23 Meenu Denis DO [address] [place] [address] Assigned Heart and Vascular Provider 07/29/23 documented as of this encounter
--- OUTSIDE RECORDS SUMMARY | 2023-11-28 16:17 | XMS_ITS | Clinical Summary ---
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 01/04/2023 Overview: STEMI s/p ARI x2 to proximal and mid LAD (01/04/2023) w/ staged PCI later on 01/04/2023 d/t [facility] S/P drug eluting coronary stent placement 2022 Overview: STEMI s/p ARI x2 to proximal and mid LAD (01/04/2023) w/ staged PCI later on 01/04/2023 d/t [facility] Hyperlipidemia LDL goal <70 01/04/2023 Statin intolerance [...] Outcome GA Total Labor Labor/2nd/3rd Weight Sex Type Anes PTL Stephanie A1 A5 Name Clin Para Para Last Filed Vital Signs Vital [...] Preferences, Provider to review later Care Teams Salon Receptionist Relationship Specialty Start Date End Date Loren Beyer MD [address] [place] [address] PCP - General Family Practice 10/20/16
--- OUTSIDE RECORDS SUMMARY | 2023-11-28 16:17 | XMS_ITS | Encounter Summary ---
Author Organization [place] Address [address] [facility] [place] [address] Care Team Providers Care Tableau Analyst Name Role Phone Loren Beyer MD Primary Care Provider + Brian Abreu MD Unavailable Sakina Osborne APRN INSURANCE FOLLOW UP SPECIALIST Unavailable [phone] Teresa Chiu RN Unavailable Unavaila Meenu Alves DO Unavailable [phone] Encounter Details Date Type Department Care Team (Late st Contact Info) Description 01/24/2023 External Order Results [facility] [address] [place] [address] Outside, Provider Social History Tobacco Use Types [...] / Unknown 01/24/2023 8:51 AM CDT Narrative GENAROCHAPOJamie PFT - 02/03/2023 4:02 PM CDT Verified by Lolita Rhodes on 02/03/2023. Provider Outside LAB - BLOOD ORDERABL ES CITLALY PFSuzanna NON-INTERFACED (ONBASE SCANS) * Hepatic function panel [...] - BLOOD ORDERABL ES Performing Organization Address [facility] [address]/[facility] Co de Phone Number BREEZE PFT NON-INTERFACED [...] - BLOOD ORDERABL ES Performing Organization Address [facility] [address]/ZIP Co de Phone Number BREEZE PFT NON-INTERFACED (ONBASE SCANS) * (ABNORMAL) [...] on filedocumented in this encounter Care Teams Tableau Analyst Relationship Specialty Start Date End Date Loren Beyer MD [facility] [address] [address] PCP - General Family Practice 11/15/17 Brian Abreu MD [address] [place] [address] [place] [address] Assigned Heart and Vascular Provider 02/26/23 05/06/23 Sakina Osborne, POLICE ACADEMY PROGRAM COORDINATOR INSURANCE FOLLOW UP SPECIALIST [address] [place] [address] Assigned Heart and Vascular Provider 05/07/23 07/28/23 Teresa Chiu, RN Registered Nurse Cardiology 07/15/23 Meenu Denis DO [address] [place] [id number] Assigned Heart and Vascular Provider 07/29/23 documented as of this encounter
== END 2023-11-28 09:31 | disposition home or self-care (01) ==
LOC: NFLDREF 16:14
PROVIDERS: PCP Family Medicine; Referring Provider Family Medicine; Visit Provider Family Medicine
DX: D50.9 Iron deficiency anemia, unspecified (principal); I10 Essential (primary) hypertension; E11.9 Type 2 diabetes mellitus without complications
CPT/HCPCS: 80053; 82728

== ENCOUNTER 2024-01-12 02:36 | Outpatient (CLI) | payer MEDICARE, OTHER, SELFPAY ==
--- OUTSIDE RECORDS SUMMARY | 2024-01-13 03:50 | XMS_ITS | Clinical Summary ---
Author Organization [facility] Address [address] [facility] [place] [address] Care Team Providers Care Study Coordinator Name Role Phone Loren Beyer MD Primary Care Provider + Teresa Chiu RN Unavailable Unavaila Meenu Alves DO Unavailable [phone] Allergies Active Allergy Reactions Criticality Noted Date Comments Alendronate 07/03/2014 Animal Dander 01/22/2013 Asthma Aspirin 01/22/2013 Doesn't tolerate because of asthma Atorvastatin 01/22/2013 Stiff neck and neck pain Azithromycin Nausea and Vomiting Medium 01/12/2024 Calcitonin 07/03/2014 Codeine Unknown 07/01/2014 Hallucinations Rosuvastatin [...] 2 puffs into the lungs 2 times daily. Take before alvesco Suspended calcium-vitamin D (CALTRATE) 600-400 MG-UNIT per tablet Take 1 tablet by mouth daily Suspended multivitamin, therapeutic with minerals (MULTI-VITAMIN) TABS Take 1 tablet by mouth daily Suspended PREDNISONE PO 20 mg for 5 days, then 10 mg for 5 days, then 10 mg every other day for 5 days - for asthma flareup - PRN 4 Discontinued(M ed Rec(No AVS / No eCancel)) clopidogrel (PLAVIX) 75 MG tablet Take 75 mg by mouth daily. 01/06/2023 Suspended ezetimibe (ZETIA) 10 MG tablet Take 1 tablet by mouth daily 01/06/2023 Suspended metoprolol succinate ER (TOPROL XL) 25 MG 24 hr tablet Take 25 mg by mouth daily 01/06/2023 Suspended nitroGLYcerin (NITROSTAT) 0.[address] 0.4 mg under the tongue every 5 minutes as needed Suspended polyethylene glycol-propylene glycol (SYSTANE) 0.4-0.3 % SOLN ophthalmic solution Place 1 drop into both eyes 4 times daily as needed for dry eyes. Suspended cloNIDine (CATAPRES) 0.1 MG tablet Take 0.05 mg by mouth 2 times daily Pt takes 1/2 tablet (0.05 mg) BID (AM & PM) and an additional 1/2 tablet (0.05 mg) PRN 01/27/2023 Suspended predniSONE (DELTASONE) 5 MG tablet Take 5 mg by mouth every morning 12/20/2022 Suspended sertraline (ZOLOFT) 50 MG tablet Take 50 mg by mouth every evening 02/09/2023 Suspended levothyroxine (SYNTHROID/LEVOTH ROID) 25 MCG tablet Take 25 mcg by mouth every morning 12/20/2022 Suspended losartan (COZAAR) 25 MG tablet Take 25 mg by mouth 2 times daily Suspended LORazepam (ATIVAN) 0.5 MG tablet Take 0.5 mg by mouth as needed 04/30/2022 Suspended FLOVENT HFA 110 MCG/ACT inhaler Inhale 2 puffs into the lungs 2 times daily 02/21/2023 Suspended calcium carbonate (TUMS) 500 MG chewable tablet Take 500 mg by mouth as needed for heartburn Suspended omeprazole (PRILOSEC) [address] capsule Take 40 mg by mouth 2 times daily Suspended UNABLE TO FIND Lactace With Dairy Products 4 Discontinued(M ed Rec(No AVS / No eCancel)) chlorpheniramine (CHLOR-TRIMETON) 4 MG tablet Take 2 mg by mouth as needed. 02/23/2022 Suspended sodium chloride (OCEAN) 0.65 % nasal spray [place] 1 spray in nostril daily as needed for congestion. 01/28/2022 Suspended artificial tears (GENTEAL) 0.1-0.2-0.3 % ophthalmic solution 1 drop daily as needed for dry eyes 4 Discontinued(M ed Rec(No AVS / No eCancel)) ciclesonide (ALVESCO) 160 MCG/ACT inhaler Inhale 2 puffs into the lungs 2 times daily. Take after albuterol Suspended lactase (LACTAID) 3000 UNIT tablet Take 3,000 Units by mouth as needed for indigestion. Suspended Active Problems Problem Noted Date Diagnosed Date Hypoxemia 01/12/2024 Hypertensive urgency 01/12/2024 Chest pain, unspecified type 01/12/2024 Pneumonia due to infectious organism, unspecified laterality, unspecified part of lung 01/12/2024 Severe asthma 03/04/2023 Gastroesophageal reflux disease without [...] Encounters Date Type Department Care Team Description 01/12/2024 3:33 AM CDT - Present Hospital Encounter [facility] Observation Dept [address] [place] [address] Adan Irene MD Burns, DO Lanny Colmenares Karen T, MD Mithani, Jenise Shah MD Chest pain, unspecified type; Hypoxemia; Pneumonia due to infectious organism, unspecified laterality, unspecified part of lung; Hypertensive urgency 01/12/2024 Travel 12/02/[address] [facility] [address] [place] [phone] Meenu Denis DO Symptoms (Feeling in a Fog and exhausted all the time) 11/28/2023 External Order Results [facility] [address] [place] [address] Outside, Provider 11/14/2023 MyC Medical Advice [address] [place] [phone] Calin De Jesus RN from Last 3 [...] School Help Needed Not on file 02/18 Food Insecurity Answer Date Recorded Within the past 12 months, d id you worry that your food would run out before you got money to buy more? No 01/12/2024 Within the past 12 months, d id the food you bought just not last and you didn? t have money to get more? No 01/12/2024 Housing Stability Answer Date Recorded Do you have housing? ([place] is defined as stable permanent housing and does not include staying ouside in a car, in a tent, in an abandoned building, in an overnight alf, or couch-surfing.) Yes 01/12/2024 Are you worried about losing your housing? No 01/12/2024 Financial Resource Strain Answer Date R ecorded Within the past 12 months, h ave you or your family members you live with been unable to get utilities (heat, electricity) when it was really needed? No 01/12/2024 Transportation Needs Answer Date Record ed Within the past 12 months, h as lack of transportation kept you from medical appointments, getting your medicines, non-medical meetings or appointments, work, or from getting things that you need? No 01/12/2024 Sex and Gender Information Value Date Recorded Sex Assigned at Not on file Gender Identity Not on file Sexual Orientation Not on file Last Filed Vital Signs Vital Sign Reading Time Taken Comments Blood Pressure 174/72 01/13/2024 12:41 AM CDT Pulse 70 01/13/2024 12:41 AM CDT Temperature 36.6 ??C (97.9 ??F) 01/13/2024 1 2:41 AM CDT Respiratory Rate 18 01/13/2024 12:4 1 AM CDT Oxygen Saturation 94% 01/13/2024 12: 41 AM CDT Inhaled Oxygen Concentration - - Weight 53.5 kg (117 lb 14.4 oz) 024 11:14 AM CDT Height 147.3 cm (4' 10) 01/12/2024 11: 14 AM CDT Body Mass Index 24.64 01/12/2024 11:14 AM CDT Plan of Treatment Upcoming Encounters Date Type Department Care Team (Late st Contact Info) Description 01/23/2024 1:15 PM CDT Office Visit [address] [place] [address] Meenu Denis DO [address] [place] [address] Health Maintenance Due Date Last Done Comments ADVANCE CARE PLANNING 1935 ANNUAL REVIEW OF HM ORDERS 1935 ASTHMA ACTION PLAN 1936 ASTHMA CONTROL TEST 1936 DEXA 1936 DIABETIC FOOT EXAM 1935 EYE EXAM 1935 HF ACTION PLAN 1936 MICROALBUMIN 1936 DTAP/TDAP/TD IMMUNIZATION (1 - Tdap) 1961 ZOSTER IMMUNIZATION (1 of 2) 1986 RSV VACCINE (1 - 1-dose 60+ series) 1996 FALL RISK ASSESSMENT 2001 MEDICARE ANNUAL WELLNESS VISIT 2001 PHQ-2 (once per calendar year) 2023 02/25/2023 COVID-19 Vaccine ( season) 2023 03/17/2023, 03/23/2022, 03/19/2021, Additional history exists INFLUENZA VACCINE (#1) 2024 , 03/03/2022, 02/27/2021, Additional history exists LIPID 01/25/2024 01/24/2023 A1C 02/28/2024 11/28/2023, 09/05/2023 BMP 07/13/2024 01/12/2024, 11/13, 09/05/2023, Additional history exists ALT 11/27/2024 11/28/2023, 08/15, 01/24/2023, Additional history exists CBC 01/11/2025 01/12/2024, 11/13, 09/05/2023, Additional history exists Pneumococcal Vaccine: 65+ Years Completed 06/16/2017, 09/05/2014, 02/08/2007, Additional history exists TSH W/FREE T4 REFLEX Completed 01/12/2024 HPV IMMUNIZATION Aged Out No longer e ligible based on patient's age to complete this topic MENINGITIS IMMUNIZATION Aged Out No l onger eligible based on patient's age to complete this topic RSV MONOCLONAL ANTIBODY Aged Out No l onger eligible based on patient's age to complete this topic Medical Devices Implanted Type Area Line Locator Device Identifier Shelf Expiration Date Model / Serial / Lot Glenosphere 25mm Mini Baseplate Implanted:Qty: 1 on 01/30/2013 by Jc Farr MD at [facility] Right: Shoulder 11/12/2022 [id number] / / [id number] Humeral Bearing Standard 44-36mm Implanted:Qty: 1 on 01/30/2013 by Jc Farr MD at [facility] Right: Shoulder 10/12/2017 [id number] / / [id number] Implanted:Qty: 1 on 01/30/2013 by Jc Farr MD at [facility] Right: Shoulder 10/12/2022 [id number] / / [id number] 3.5 Hex Fixed Locking Screw 4.40l20uc Implanted:Qty: 1 on 01/30/2013 by Jc Farr MD at [facility] Right: Shoulder 12/12/2022 [id number] / / [id number] Fixed Hex Locking Screw Implanted:Qty: 1 on 01/30/2013 by Jc Farr MD at [facility] Right: Shoulder 12/12/2022 [id number] / / [id number] [id number] Hex Fixed Locking Screw Implanted:Qty: 1 on 01/30/2013 by Jc Farr MD at [facility] Right: Shoulder 12/12/2022 [id number] / / [id number] Fixed Locking Screw Implanted:Qty: 1 on 01/30/2013 by Jc Farr MD at [facility] Right: Shoulder 12/12/2022 [id number] / / [id number] Glenosphere 36mm Curve/Standard Implanted:Qty: 1 on 01/30/2013 by Jc Farr MD at [facility] Right: Shoulder 12/12/2022 [id number] / / [id number] 9x83mm Shoulder Stem Implanted:Qty: 1 on 01/30/2013 by Jc Farr MD at [facility] Right: Shoulder 10/12/2022 [id number] / / [id number] Humeral Tray 44mm Standard Implanted:Qty: 1 on 01/30/2013 by cJ Farr MD at [facility] Right: Shoulder 12/12/2022 [id number] / / [id number] Procedures The patient is currently admitted. The information in this section might not be complete until the patient is discharged. Procedure Name Priority Date/Time Associated Diagnosis Comments GLUCOSE BY METER Routine 01/12/2024 5:41 PM CDT ECHO COMPLETE Routine 01/12/2024 1:38 PM CDT COVID-19 VIRUS (CORONAVIRUS) BY PCR STAT 01/12/2024 5:40 AM CDT TSH WITH FREE T4 REFLEX Add-On 01/12/2024 5:26 AM CDT PROCALCITONIN Add-On 01/12/2024 5:26 AM CDT TROPONIN T, HIGH SENSITIVITY STAT 01/12/2024 5:[address] CHEST PULMONARY EMBOLISM W CONTRAST STAT 01/12/2024 5:02 AM CDT CBC WITH PLATELETS & DIFFERENTIAL STAT 01/12/2024 3:39 AM CDT EXTRA RED TOP TUBE STAT 01/12/2024 3: 39 AM CDT EXTRA BLUE TOP TUBE STAT 01/12/2024 3 :39 AM CDT CBC WITH PLATELETS AND DIFFERENTIAL STAT 01/12/2024 3:39 AM CDT EXTRA TUBE STAT 01/12/2024 3:39 AM CDT TROPONIN T, HIGH SENSITIVITY STAT 01/12/2024 3:39 AM CDT BASIC METABOLIC PANEL STAT 01/12/2024 3:39 AM CDT EKG 12-LEAD, TRACING ONLY STAT 01/12/2024 3:35 AM CDT CBC WITH PLATELETS & DIFFERENTIAL Routine 11/28/2023 9:30 AM CDT BASIC METABOLIC PANEL Routine 11/28/2023 9:30 AM CDT HEPATIC FUNCTION PANEL Routine 9:30 AM CDT HEMOGLOBIN A1C Routine 11/28/2023 9:30 AM CDT FERRITIN Routine 11/28/2023 9:30 AM CDT CREATININE Routine 11/28/2023 9:30 AM CDT LAB RESULT - HIM SCAN 11/28/2023 12:00 AM CDT LIPID PROFILE Routine 01/24/2023 8:51 AM CDT from Last 3 Months or Most Recently Relevant to Health Maintenance Results * (ABNORMAL) Glucose by meter (01/12/2024 5:41 PM CDT) [facility] GLUCOSE BY METER POCT 285(H) 70 - 99 mg/dL 01/12/2024 5:50 PM CDT LABORATORY POC Blood, Capillary BLOOD SPECIMEN / Unknown 01/12/2024 5:41 PM CDT 01/12/2024 5:50 PM CDT Aletha Ca MD LAB - [facility] POCT LABORATORY [facility] Lab [address] Lab (1st floor, no room number) [place] [address], [facility] * ECHO COMPLETE (01/12/2024 1:38 PM CDT) [facility] LVEF 60-65% CARDIOLOGY RESULTS Anatomical Region Laterality Modality Echocardiography 01/12/2024 12:5 4 PM CDT Narrative 01/12/2024 3:51 PM CDT [id number]^PREETHI^JENISE^GIOVANY [facility] Echocardiography Laboratory [address] [place] [address] Name: FAWAD UNGER : 1935 Study Date: 01/12/2024 12:54 PM Age: 88 yrs Gender: Female Patient Location: [facility] Reason For Study: CAD Ordering Physician: JENISE ORO Referring Physician: Loren Beyer Performed By: Arabella Osborne BSA: 1.4 m2 Height: 58 in Weight: 112 lb HR: 68 BP: 186/100 mmHg Procedure Complete Echo Adult. Technically difficult study. Interpretation Summary The visual ejection fraction is 60-65%. Left ventricular systolic function is normal. There is trace aortic regurgitation. Left Ventricle The left ventricle is normal in size. There is mild to moderate concentric left ventricular hypertrophy. The visual ejection fraction is 60-65%. Left ventricular systolic function is normal. Grade I or early diastolic dysfunction. Diastolic Doppler findings (E/E' ratio and/or other parameters) suggest left ventricular filling pressures are indeterminate. Right Ventricle The right ventricle is normal in size and function. Atria Normal left atrial size. Right atrial size is normal. There is no color Doppler evidence of an atrial shunt. Mitral Valve There is trace mitral regurgitation. Tricuspid Valve There is trace tricuspid regurgitation. Aortic Valve The aortic valve is trileaflet. There is mild trileaflet aortic sclerosis. There is trace aortic regurgitation. No hemodynamically significant valvular aortic stenosis. Pulmonic Valve There is trace pulmonic valvular regurgitation. Normal pulmonic valve velocity. Vessels The aortic root is normal size. Normal size ascending aorta. IVC diameter and respiratory changes fall into an intermediate range suggesting an RA pressure of 8 mmHg. Dilation of the inferior vena cava is present with normal respiratory variation in diameter. Pericardium There is no pericardial effusion. Rhythm Sinus rhythm was noted. MMode/2D Measurements & Calculations IVSd: 1.1 cm LVIDd: 3.8 cm LVIDs: 2.2 cm LVPWd: 1.3 cm IVC diam: 2.1 cm FS: 40.5 % LV mass(C)d: 150.3 grams LV mass(C)dI: 105.6 grams/m2 Ao root diam: 2.8 cm asc Aorta Diam: 3.1 cm LVOT diam: 2.0 cm LVOT area: 3.1 cm2 Ao root diam index Ht(cm/m): 1.9 Ao root diam index BSA (cm/m2): 2.0 Asc Ao diam index BSA (cm/m2): 2.2 Asc Ao diam index Ht(cm/m): 2.1 LA Volume (BP): 24.2 ml LA Volume Index (BP): 17.0 ml/m2 RV Base: 2.8 cm RWT: 0.67 TAPSE: 2.2 cm Doppler Measurements & Calculations MV E max dajuan: 72.3 cm/sec MV A max dajuan: 114.8 cm/sec MV E/A: 0.63 MV max P.5 mmHg MV mean P.3 mmHg MV V2 VTI: 28.7 cm MVA(VTI): 2.2 cm2 MV dec slope: 268.5 cm/sec2 MV dec time: 0.27 sec Ao V2 max: 109.9 cm/sec Ao max P.0 mmHg Ao V2 mean: 84.9 cm/sec Ao mean P.1 mmHg Ao V2 VTI: 26.9 cm GEOVANY(I,D): 2.4 cm2 GEOVANY(V,D): 2.4 cm2 LV V1 max P.9 mmHg LV V1 max: 84.9 cm/sec LV V1 VTI: 20.3 cm SV(LVOT): 63.3 ml SI(LVOT): 44.5 ml/m2 PA V2 max: 93.4 cm/sec PA max P.5 mmHg PA acc time: 0.12 sec AV Dajuan Ratio (DI): 0.77 GEOVANY Index (cm2/m2): 1.7 E/E' av.9 Lateral E/e': 9.5 Medial E/e': 10.4 RV S Dajuan: 17.3 cm/sec Report approved by: Misha Rodrigues 01/12/2024 03:51 PM Procedure Note Yaakov Bhandari MD - 01/12/2024 [id number]^PREETHI^JENISE^GIOVANY [facility] Echocardiography Laboratory [address] [place] [id number] Name: FAWAD UNGER : 1935 Study Date: 01/12/2024 12:54 PM Age: 88 yrs Gender: Female Patient Location: [facility] Reason For Study: CAD Ordering Physician: JENISE ORO Referring Physician: Loren Beyer Performed By: Arabella Osborne BSA: 1.4 m2 Height: 58 in Weight: 112 lb HR: 68 BP: 186/100 mmHg Procedure Complete Echo Adult. Technically difficult study. Interpretation Summary The visual ejection fraction is 60-65%. Left ventricular systolic function is normal. There is trace aortic regurgitation. Left Ventricle The left ventricle is normal in size. There is mild to moderateconcentric left ventricular hypertrophy. The visual ejection fraction is 60-65%.Left ventricular systolic function is normal. Grade I or early diastolic dysfunction. Diastolic Doppler findings (E/E' ratio and/or otherparameters) suggest left ventricular filling pressures are indeterminate. Right Ventricle The right ventricle is normal in size and function. Atria Normal left atrial size. Right atrial size is normal. There is no color Doppler evidence of an atrial shunt. Mitral Valve There is trace mitral regurgitation. Tricuspid Valve There is trace tricuspid regurgitation. Aortic Valve The aortic valve is trileaflet. There is mild trileaflet aorticsclerosis. There is trace aortic regurgitation. No hemodynamically significantvalvular aortic stenosis. Pulmonic Valve There is trace pulmonic valvular regurgitation. Normal pulmonic valve velocity. Vessels The aortic root is normal size. Normal size ascending aorta. IVC diameterand respiratory changes fall into an intermediate range suggesting an RApressure of 8 mmHg. Dilation of the inferior vena cava is present with normal respiratory variation in diameter. Pericardium There is no pericardial effusion. Rhythm Sinus rhythm was noted. MMode/2D Measurements & Calculations IVSd: 1.1 cm LVIDd: 3.8 cm LVIDs: 2.2 cm LVPWd: 1.3 cm IVC diam: 2.1 cm FS: 40.5 % LV mass(C)d: 150.3 grams LV mass(C)dI: 105.6 grams/m2 Ao root diam: 2.8 cm asc Aorta Diam: 3.1 cm LVOT diam: 2.0 cm LVOT area: 3.1 cm2 Ao root diam index Ht(cm/m): 1.9 Ao root diam index BSA (cm/m2): 2.0 Asc Ao diam index BSA (cm/m2): 2.2 Asc Ao diam index Ht(cm/m): 2.1 LA Volume (BP): 24.2 ml LA Volume Index (BP): 17.0 ml/m2 RV Base: 2.8 cm RWT: 0.67 TAPSE: 2.2 cm Doppler Measurements & Calculations MV E max dajuan: 72.3 cm/sec MV A max dajuan: 114.8 cm/sec MV E/A: 0.63 MV max P.5 mmHg MV mean P.3 mmHg MV V2 VTI: 28.7 cm MVA(VTI): 2.2 cm2 MV dec slope: 268.5 cm/sec2 MV dec time: 0.27 sec Ao V2 max: 109.9 cm/sec Ao max P.0 mmHg Ao V2 mean: 84.9 cm/sec Ao mean P.1 mmHg Ao V2 VTI: 26.9 cm GEOVANY(I,D): 2.4 cm2 GEOVANY(V,D): 2.4 cm2 LV V1 max P.9 mmHg LV V1 max: 84.9 cm/sec LV V1 VTI: 20.3 cm SV(LVOT): 63.3 ml SI(LVOT): 44.5 ml/m2 PA V2 max: 93.4 cm/sec PA max P.5 mmHg PA acc time: 0.12 sec AV Dajuan Ratio (DI): 0.77 GEOVANY Index (cm2/m2): 1.7 E/E' av.9 Lateral E/e': 9.5 Medial E/e': 10.4 RV S Dajuan: 17.3 cm/sec Report approved by: Misha Rodrigues 01/12/2024 03:51 PM Jenise Oro MD CV ECHO ORDERABLE S * Asymptomatic COVID-19 Virus (Coronavirus) by PCR Nasopharyngeal (01/12/2024 5:40 AM CDT) [facility] SARS CoV2 PCR Negative Negative 01/12/2024 6:34 AM CDT LABORATORY Comment:NEGATIVE: SARS-CoV-2 (COVID-19) RNA not detected, presumed negative. Swab NASOPHARYNGEAL STRUCTURE / Unknown Non-blood Collection / Unknown 01/12/2024 5:40 AM CDT 01/12/2024 5:50 AM CDT [facility] LABORATORY - 01/12/2024 6:34 AM CDT Testing was performed using the Xpert Xpress SARS-CoV-2 Assay on the [employer]. Additional information about this Emergency Use Authorization (EUA) assay can be found via the Lab Guide. This test should be ordered for the detection of SARS-CoV-2 in individuals who meet SARS-CoV-2 clinical and/or epidemiological criteria as well as from individuals without symptoms or other reasons to suspect COVID-19. Test performance for asymptomatic patients has only been established in anterior nasal swab specimens. This test is for in vitro diagnostic use under the FDA EUA for laboratories certified under CLIA to perform high complexity testing. This test has not been FDA cleared or approved. A negative result does not rule out the presence of PCR inhibitors in the specimen or target RNA concentration below the limit of detection for the assay. The possibility of a false negative should be considered if the patient's recent exposure or clinical presentation suggests COVID-19. This test was validated by the [facility]. This laboratory is certified under the Clinical Laboratory Improvement Amendments (CLIA) as qualified to perform high complexity laboratory testing. Adan Irene MD LAB - MICRO GENERAL ORDERABLES [facility] [address] [facility]st [facility], no room number) [place] [address], [facility] * (ABNORMAL) Troponin T, High Sensitivity (now) (01/12/2024 5:26 AM CDT) Only the most recent of2 resultswithin the time period is included. [facility] Troponin T, High Sensitivity 18(H) <=14 ng/L 01/12/2024 5:52 AM CDT LABORATORY Comment: Either a High Sensitivity Troponin T baseline (0 hours) value = 100 ng/L, or an increase in High Sensitivity Troponin T = 7 ng/L at 2 hours compared to 0 hours (2-0 hours), suggests myocardial injury, and urgent clinical attention is required. ?? If the 2-0 hours increase is <7 ng/L, a High Sensitivity Troponin T result above gender-specific reference ranges warrants further evaluation. Recommendations for further evaluation include correlation with clinical decision-making tool (e.g., HEART), a 3rd High Sensitivity Troponin T test 2 hours after the 2nd (a 20% change from baseline would represent concern), admission for observation, close PCC/cardiology follow-up, or urgent outpatient provocative testing. Blood BLOOD SPECIMEN / Unknown Venipuncture / Unknown 01/12/2024 5:26 AM CDT 01/12/2024 5:31 AM CDT Adan Irene MD LAB - BLOOD ORDERABL ES LABORATORY [facility] Acute Care Lab [address] [facility] Lab (1st floor, no room number) [place] [address] * Procalcitonin (01/12/2024 5:26 AM CDT) Procalcitonin 0.08 <0.50 ng/mL 01/12/2024 7:38 AM CDT LABORATORY Comment: Interpretation and Recommendations <0.5 ng/mL: Systemic bacterial infection unlikely. Local bacterial infection is possible. 0.5-1.99 ng/mL: Systemic bacterial infection possible, but various other conditions are known to induce PCT as well. >=2.00 ng/mL: Systemic bacterial infection likely, unless other causes are known. Decision to start antibiotics should not be based on procalcitonin level alone. See Procalcitonin Guidance document for more details. [email or web address] Factors that may affect PCT levels (not all-inclusive): ?? - Increased PCT level ?Severe trauma/love ?Invasive surgery ?Cooling therapy after cardiac arrest/surgery ?Treatment with agents which stimulate cytokines ?Acute kidney injury ?Chronic kidney disease and end stage renal disease ?Acute graft vs host disease ?Non-specific shock causing decreased organ perfusion and/or infarction ?? - Normal or unchanged PCT level ?Early in infections (if low and infection is suspected, repeating in 6-12 hours is recommended) ?Chronic infections (endocarditis, osteomyelitis, prosthetic device/graft infections) ?Localized infections (cellulitis, wound infections, intra-abdominal abscess) Note: PCT has not been extensively studied in /, pediatrics, severe immunosuppression, and cystic fibrosis. Blood BLOOD SPECIMEN / Unknown Venipuncture / Unknown 01/12/2024 5:26 AM CDT 01/12/2024 5:31 AM CDT Aletha Ca MD LAB - BLOOD ORDERABL ES LABORATORY [facility] Acute Care Lab [address] Lab (1st floor, no room number) [place] [id number] * TSH with free T4 reflex (01/12/2024 5:26 AM CDT) TSH 2.47 0.30 - 4.20 uIU/mL 01/12/2024 10:06 AM CDT LABORATORY Blood BLOOD SPECIMEN / Unknown Venipuncture / Unknown 01/12/2024 5:26 AM CDT 01/12/2024 5:31 AM CDT Jenise Oro MD LAB - BLOOD ORDER AMELIA Performing Organization Address City/[facility]/ZIP Co de Phone Number LABORATORY [facility] Lab [address] Lab (1st floor, no room number) [address] * CT Chest Pulmonary Embolism w Contrast (01/12/2024 5:02 AM CDT) Anatomical Region Laterality Modality Chest, SUBRAD CT BODY, UMP CT CHEST Computed Tomography 01/12/2024 5:02 AM CDT Impressions 01/12/2024 5:15 AM CDT IMPRESSION: 1. ??No visualized pulmonary emboli. 2. ??Multifocal reticulonodular infiltrates. Infiltrate within the lingula and bibasilar atelectasis or infiltrate. Correlate for pneumonia including atypical infection. Follow-up to confirm resolution. 3. ??Wall thickening splenic flexure of the colon with mild adjacent inflammation. Findings could be due to acute diverticulitis or focal colitis. Follow-up to confirm resolution necessary to exclude focal lesion. 4. ??3.6 cm left thyroid nodule. 5. ??Cholelithiasis. REFERENCE: Javid RENAE et al. Managing Incidental Thyroid Nodules Detected on Imaging: White Paper of the ACR Incidental Thyroid Findings Committee. JACR 2015; 12:143-150. Incidental thyroid nodule detected on CT or MRI without suspicious findings. Applies to general population without limited life expectancy or significant comorbidities. 1. ??Age greater than or equal to 35 years 2. ??Less than 1.5 cm: No further evaluation. 3. ??Greater than or equal to 1.5 cm: Evaluate with thyroid ultrasound. Narrative 01/12/2024 5:15 AM CDT EXAM: CT CHEST PULMONARY EMBOLISM W CONTRAST LOCATION: [facility] DATE: 01/12/2024 INDICATION: left anterior chest pain, sharp, higher risk for PE COMPARISON: None. TECHNIQUE: CT chest pulmonary angiogram during arterial phase injection of IV contrast. Multiplanar reformats and MIP reconstructions were performed. Dose reduction techniques were used. CONTRAST: 51mL Isovue 370 FINDINGS: ANGIOGRAM CHEST: Pulmonary arteries are normal caliber and negative for pulmonary emboli. Thoracic aorta is not well opacified and is ??indeterminate for dissection. No CT evidence of right heart strain. LUNGS AND PLEURA: Mild multifocal reticulonodular infiltrates. Mosaic attenuation. Infiltrate within the lingula. Bibasilar atelectasis or infiltrate. Trace pleural effusions. MEDIASTINUM/AXILLAE: 3.6 cm left thyroid nodule. No adenopathy. No significant pericardial effusion. CORONARY ARTERY CALCIFICATION: Previous intervention (stents or CABG). UPPER ABDOMEN: 2 cm gallstone. Diverticulosis. Focal thickening and mild inflammation splenic flexure of the colon series 6 images 258 - 283. MUSCULOSKELETAL: Degenerative change osseous structures. Right shoulder arthroplasty. Mild compression superior endplate L1. Procedure Note Sharon Madrigal MD, - 01/12/2024 EXAM: CT CHEST PULMONARY EMBOLISM W CONTRAST LOCATION: [facility] DATE: 01/12/2024 INDICATION: left anterior chest pain, sharp, higher risk for PE COMPARISON: None. TECHNIQUE: CT chest pulmonary angiogram during arterial phase injection ofIV contrast. Multiplanar reformats and MIP reconstructions were performed.Dose reduction techniques were used. CONTRAST: 51mL Isovue 370 FINDINGS: ANGIOGRAM CHEST: Pulmonary arteries are normal caliber and negative forpulmonary emboli. Thoracic aorta is not well opacified and isindeterminate for dissection. No CT evidence of right heart strain. LUNGS AND PLEURA: Mild multifocal reticulonodular infiltrates. Mosaicattenuation. Infiltrate within the lingula. Bibasilar atelectasis orinfiltrate. Trace pleural effusions. MEDIASTINUM/AXILLAE: 3.6 cm left thyroid nodule. No adenopathy. Nosignificant pericardial effusion. CORONARY ARTERY CALCIFICATION: Previous intervention (stents or CABG). UPPER ABDOMEN: 2 cm gallstone. Diverticulosis. Focal thickening and mildinflammation splenic flexure of the colon series 6 images 258 - 283. MUSCULOSKELETAL: Degenerative change osseous structures. Right shoulderarthroplasty. Mild compression superior endplate L1. IMPRESSION: 1. No visualized pulmonary emboli. 2. Multifocal reticulonodular infiltrates. Infiltrate within the lingulaand bibasilar atelectasis or infiltrate. Correlate for pneumonia includingatypical infection. Follow-up to confirm resolution. 3. Wall thickening splenic flexure of the colon with mild adjacentinflammation. Findings could be due to acute diverticulitis or focalcolitis. Follow-up to confirm resolution necessary to exclude focallesion. 4. 3.6 cm left thyroid nodule. 5. Cholelithiasis. REFERENCE: Javid ChildersK et al. Managing Incidental Thyroid Nodules Detected on Imaging:White Paper of the ACR Incidental Thyroid Findings Committee. JACR 2015;12:143-150. Incidental thyroid nodule detected on CT or MRI without suspiciousfindings. Applies to general population without limited life expectancy orsignificant comorbidities. 1. Age greater than or equal to 35 years 2. Less than 1.5 cm: No further evaluation. 3. Greater than or equal to 1.5 cm: Evaluate with thyroid ultrasound. Adan Irene MD IMG CT ORDERABLES * Extra Red Top Tube (01/12/2024 3:39 AM CDT) Pathologist [facility] [place] Hold Specimen [facility] 01/12/2024 4:46 AM CDT LABORATORY Blood BLOOD SPECIMEN / Unknown Venipuncture / Unknown 01/12/2024 3:39 AM CDT 01/12/2024 3:42 AM CDT Adan Irene MD LAB - BLOOD ORDERABL ES RH LABORATORY [facility] [address] Lab (1st floor, no room number) [place] [address] * Extra Blue Top Tube (01/12/2024 3:39 AM CDT) Hold Specimen [facility] 01/12/2024 4:46 AM CDT RH LABORATORY Blood BLOOD SPECIMEN / Unknown Venipuncture / Unknown 01/12/2024 3:39 AM CDT 01/12/2024 3:42 AM CDT Adan Irene MD LAB - BLOOD ORDERABL ES LABORATORY [facility] [address] Lab (1st floor, no room number) [place] [id number] * (ABNORMAL) CBC with platelets and differential (01/12/2024 3:39 AM CDT) WBC Count 12.2(H) 4.0 - 11.0 10e3/uL 01/12/2024 3:44 AM CDT RH LABORATORY RBC Count 4.15 3.80 - 5.20 10e6/uL 01/12/2024 3:44 AM CDT RH LABORATORY Hemoglobin 9.9(L) 11.7 - 15.7 g/dL 01/12/2024 3:44 AM CDT RH LABORATORY Hematocrit 32.6(L) 35.0 - 47.0 % 01/12/2024 3:44 AM CDT RH LABORATORY MCV 79 78 - 100 fL 01/12/2024 3:44 AM CDT RH LABORATORY MCH 23.9(L) 26.5 - 33.0 pg 01/12/2024 3:44 AM CDT RH LABORATORY MCHC 30.4(L) 31.5 - 36.5 g/dL 01/12/2024 3:44 AM CDT RH LABORATORY RDW 16.7(H) 10.0 - 15.0 % 01/12/2024 3:44 AM CDT RH LABORATORY Platelet Count 206 150 - 450 10e3/uL 01/12/2024 3:44 AM CDT RH LABORATORY % Neutrophils 72 % 01/12/2024 3:44 AM CDT RH LABORATORY % Lymphocytes 13 % 01/12/2024 3:44 AM CDT RH LABORATORY % Monocytes 11 % 01/12/2024 3:44 AM CDT RH LABORATORY % Eosinophils 3 % 01/12/2024 3:44 AM CDT RH LABORATORY % Basophils 0 % 01/12/2024 3:44 AM CDT RH LABORATORY % Immature Granulocytes 1 % 01/12/2024 3:44 AM CDT RH LABORATORY NRBCs per 100 WBC 0 <1 /100 024 3:44 AM CDT RH LABORATORY Absolute Neutrophils 8.8(H) 1.6 - 8.3 10e3/uL 01/12/2024 3:44 AM CDT RH LABORATORY Absolute Lymphocytes 1.6 0.8 - 5.3 10e3/uL 01/12/2024 3:44 AM CDT RH LABORATORY Absolute Monocytes 1.4(H) 0.0 - 1.3 10e3/uL 01/12/2024 3:44 AM CDT RH LABORATORY Absolute Eosinophils 0.3 0.0 - 0.7 10e3/uL 01/12/2024 3:44 AM CDT RH LABORATORY Absolute Basophils 0.1 0.0 - 0.2 10e3/uL 01/12/2024 3:44 AM CDT RH LABORATORY Absolute Immature Granulocytes 0.1 <=0.4 10e3/uL 01/12/2024 3:44 AM CDT RH LABORATORY Absolute NRBCs 0.0 10e3/uL 01/12/2024 3:44 AM CDT RH LABORATORY Blood BLOOD SPECIMEN / Unknown Venipuncture / Unknown 01/12/2024 3:39 AM CDT 01/12/2024 3:42 AM CDT Adan Irene MD LAB - BLOOD ORDERABL ES RH LABORATORY [facility] [address] [facility] ([facility]st [facility], no room number) [place] [address], [facility] * (ABNORMAL) Basic metabolic panel (01/12/2024 3:39 AM CDT) Only the most recent of2 resultswithin the time period is included. Sodium 134(L) 135 - 145 mmol/L 01/12/2024 4:01 AM CDT LABORATORY Potassium 3.6 3.4 - 5.3 mmol/L 01/12/2024 4:01 AM CDT LABORATORY Chloride 99 98 - 107 mmol/L 01/12/2024 4:01 AM CDT LABORATORY Carbon Dioxide (CO2) 24 22 - 29 mmol/L 01/12/2024 4:01 AM CDT LABORATORY Anion Gap 11 7 - 15 mmol/L 01/12/2024 4:01 AM CDT LABORATORY Urea Nitrogen 16.4 8.0 - 23.0 mg/dL 01/12/2024 4:01 AM CDT LABORATORY Creatinine 0.92 0.51 - 0.95 mg/dL 01/12/2024 4:01 AM CDT LABORATORY GFR Estimate 60(L) >60 mL/min/1.7 3m2 01/12/2024 4:01 AM CDT LABORATORY Comment:eGFR calculated 2020 CKD-EPI equation. Calcium 8.9 8.8 - 10.4 mg/dL 01/12/2024 4:01 AM CDT LABORATORY Comment:Reference intervals for this test were updated on 11/29/2023 to reflect our healthy population more accurately. There may be differences in the flagging of prior results with similar values performed with this method. Those prior results can be interpreted in the context of the updated reference intervals. Glucose 129(H) 70 - 99 mg/dL 01/12/2024 4:01 AM CDT LABORATORY Blood BLOOD SPECIMEN / Unknown Venipuncture / Unknown 01/12/2024 3:39 AM CDT 01/12/2024 3:42 AM CDT Adan Irene MD LAB - BLOOD ORDERABL ES LABORATORY [facility] [address] [facility] Lab (1st floor, no room number) [place] [address], [facility] * EKG 12 lead (01/12/2024 3:35 AM CDT) Systolic Blood Pressure mmHg RADIOLOGY RESULTS Diastolic Blood Pressure mmHg RADIOLOGY RESULTS Ventricular Rate 68 BPM RAD IOLOGY RESULTS Atrial Rate 68 BPM RADIOLOG Y RESULTS CA Interval 172 ms RADIOLOG Y RESULTS QRS Duration 76 ms RADIOLO GY RESULTS QT 388 ms RADIOLOGY RESULTS QTc 412 ms RADIOLOGY RESULTS P [place] 50 degrees RADIOLOGY RESULTS R AXIS -34 degrees RADIOLOGY RESULTS T [place] 13 degrees RADIOLOGY RESULTS Interpretation ECG Sinus rhythm Left axis deviation Anterior infarct , age undetermined Abnormal ECG No previous ECGs available Unconfirmed report - interpretation of this ECG is computer generated - see medical record for final interpretation Confirmed by - EMERGENCY ROOM, PHYSICIAN ([id number]), editor publications GONZALEZ GAVIRIA ([id number]) on 01/12/2024 6:48:00 AM RADIOLOGY RESULTS 01/12/2024 3:35 AM CDT 01/12/2024 6:48 AM CDT Adan Irene MD ECG ORDERABLES RADIOLOGY RESULTS * (ABNORMAL) CBC with Platelets & Differential (11/28/2023 9:30 AM CDT) Pathologist [facility] [place] WBC Count (External) 8.97 4.50 - 11.00 K/uL NON-INTERFACE D (ONBASE SCANS) RBC Count (External) 4.80 4.00 - 5.20 m/uL NON-INTERFACE D (ONBASE SCANS) Hemoglobin (External) 11.0(L) 12.0 - 16.0 gm/dL NON-INTERFACE D (ONBASE SCANS) Hematocrit (External) 37.2 33.0 - 51.0 % NON-INTERFACE D (ONBASE SCANS) MCV (External) 78(L) 80 - 100 fL NON-INTERFACE D (ONBASE SCANS) MCH (External) 23(L) 26 - 34 pg NON- INTERFACE D (ONBASE SCANS) MCHC (External) 30(L) 32 - 36 gm/dL NON-INTERFACE D (ONBASE SCANS) Platelet Count (External) 247 140 - 440 K/uL NON-INTERFACE D (ONBASE SCANS) RDW (External) 15.7(H) 11.5 - 15.5 % NON-INTERFACE D (ONBASE SCANS) % Neutrophils (External) 59.3 42.0 - 72.0 % NON-INTERFACE D (ONBASE SCANS) % Lymphocytes (External) 21.2 20 - 44 % NON-INTERFACE D (ONBASE SCANS) % Monocytes (External) 9.9 0.0 - 11.0 % NON-INTERFACE D (ONBASE SCANS) % Eosinophils (External) 8.4(H) 0.0 - 7.0 % NON-INTERFACE D (ONBASE SCANS) % Immature Granulocytes (External) 0.3 % NON-INTERFACE D (ONBASE SCANS) Absolute Neutrophils (External) 5.32 1.7 - 7.0 K/uL NON-INTERFACE D (ONBASE SCANS) Absolute Lymphocytes (External) 1.90 0.90 - 2.90 K/uL NON-INTERFACE D (ONBASE SCANS) Absolute Monocytes (External) 0.89 0.00 - 0.90 K/uL NON-INTERFACE D (ONBASE SCANS) Absolute Eosinophils (External) 0.80(H) 0.00 - 0.50 K/uL NON-INTERFACE D (ONBASE SCANS) Absolute Basophils (External) 0.08 0.00 - 0.30 K/uL NON-INTERFACE D (ONBASE SCANS) Absolute Immature Granulocytes (External) 0.03 0.00 - 0.30 K/uL NON-INTERFACE D (ONBASE SCANS) Blood BLOOD SPECIMEN / Unknown 11/28/2023 9:30 AM CDT Narrative CITLALY PFT - 12/23/2023 11:04 AM CDT Verified by Gini Johnson on 12/23/2023. Loren Beyer MD LAB - BLOOD KEM [place] [facility] Organization Address City/State/ZIP Co de Phone Number CITLALY PFSuzanna NON-INTERFACED (ONBASE SCANS) * Hepatic function panel (11/28/2023 9:30 AM CDT) Protein Total (External) 7.1 6.0 - 8.3 g/dL NON-INTERFACED (ONBASE SCANS) Albumin (External) 4.0 3.3 - 5.0 g/dL NON-INTERFACED (ONBASE SCANS) Bilirubin Total (External) 0.3 0.1 - 1.5 mg/dL NON-INTERFACED (ONBASE SCANS) AST (External) 30 12 - 35 U/L NON-INTERFACED (ONBASE SCANS) ALT (External) 19 4 - 35 U/L NON- INTERFACED (ONBASE SCANS) Alk Phosphatase (External) 63 40 - 150 U/L NON-INTERFACED (ONBASE SCANS) Blood BLOOD SPECIMEN / Unknown 11/28/2023 9:30 AM CDT Narrative BREEZE PFT - 12/23/2023 11:04 AM CDT Verified by Gini Johnson on 12/23/2023. Loren Beyer MD LAB - BLOOD ORDJamie [place] Performing Organization Address [facility] Co de Phone Number BREEZE PFT NON-INTERFACED (ONBASE SCANS) * (ABNORMAL) Hemoglobin A1c (11/28/2023 9:30 AM CDT) Hemoglobin A1C (External) 7.4(H) 0 - 5.6 % NON-INTERFACED (ONBASE SCANS) Blood BLOOD SPECIMEN / Unknown 11/28/2023 9:30 AM CDT Narrative BREEZE PFT - 12/23/2023 11:04 AM CDT Verified by Gini Johnson on 12/23/2023. Loren eByer MD LAB - BLOOD ORDJmaie [place] Performing Organization Address [facility] Co de Phone Number BREEZE PFT NON-INTERFACED (ONBASE SCANS) * (ABNORMAL) Ferritin (11/28/2023 9:30 AM CDT) Ferritin (External) 8.5(L) 11.1 - 264.0 ng/mL NON-INTERFACED (ONBASE SCANS) Blood BLOOD SPECIMEN / Unknown 11/28/2023 9:30 AM CDT Narrative BREEZE PFT - 12/23/2023 11:04 AM CDT Verified by Gini Johnson on 12/23/2023. Loren Beyer MD LAB - BLOOD ORDJamie [place] Performing Organization Address [facility]/ZIP Co de Phone Number BREEZE PFT NON-INTERFACED (ONBASE SCANS) * Creatinine (11/28/2023 9:30 AM CDT) Creatinine (External) 0.9 0.5 - 1.5 mg/dL NON-INTERFACED (ONBASE SCANS) Blood BLOOD SPECIMEN / Unknown 11/28/2023 9:30 AM CDT Narrative BREEZE PFT - 12/23/2023 11:04 AM CDT Verified by Gini Johnson on 12/23/2023. Loren Beyer MD LAB - BLOOD ORDE DARCIE BREEZE PFT NON-INTERFACED (ONBASE SCANS) * Lab Result - HIM Scan (11/28/2023 12:00 AM CDT) 11/28/2023 Provider Outside NON-BEAKER LAB TE STING * Lipid Profile (01/24/2023 8:51 AM CDT) [...] ORDERABL ES BREEZE PFT NON-INTERFACED (ONBASE SCANS) from Last 3 Months or Most Recently Relevant to Health Maintenance Advance Directives For more information, please contact: [phone] * No CPR- Do NOT Intubate (Latest Code Status on File) Date Activated Date Inactivated Comments 01/12/2024 6:51 AM NO basic or ad vanced life-sustaining interventions are performed Question Answer Comments Code status determined by: Discussion with patie nt/ legal decision maker * DNR/DNI Date Activated Date Inactivated Comments 01/30/2013 12:12 PM 02/02/2013 12:40 PM Care Teams Study Coordinator Relationship Specialty Start Date End Date Loren Beyer MD [facility] [address] [place] [address] PCP - General Family Practice 11/15/17 Teresa Chiu, RN Registered Nurse Cardiology 07/15/23 Meenu Denis DO [address] [place] [address] Assigned Heart and Vascular Provider 07/29/23
--- OUTSIDE RECORDS SUMMARY | 2024-01-13 03:50 | XMS_ITS | Clinical Summary ---
Author Organization [facility] Address [place], [place] [address] Care Team Providers Care Family Assistant Name Role Phone Loren Beyer MD Primary [...] 01/30/2018 Atorvastatin Lisinopril 01/05/2008 Periorbital rash Calcitonin ([place]) Nsaids (Non-Steroidal Anti-Inflammatory Drug) Aspirin Contraindication (for [...] mg sublingual tabletIndications:Coron wilner artery disease involving sho[place] coronary artery of [place] heart with unstable angina pectoris (HC) Place [...] w/ staged PCI later on 01/04/2023 d/t [facility] 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
--- OUTSIDE RECORDS SUMMARY | 2024-01-13 03:51 | XMS_ITS | Encounter Summary ---
Author Organization [place] Address [address] [facility] [place] [address] Care Team Providers Care Beer Brewer Name Role Phone Loren Beyer MD Primary Care Provider + Teresa Chiu RN Unavailable Unavaila ble Meenu Denis DO Unavailable [phone] Encounter Details Date Type Department Care Team (Late st Contact Info) Description 11/14/2023 MyC Medical Advice [facility] Heart [address] [place] [address] Calin De Jesus, HEENA Social [...] Description 01/23/2024 1:15 PM CDT Office Visit [facility] [address] [facility] [address] [place] [address] Meenu Denis DO [address] [place] [address] documented as of this encounter Visit Diagnoses Not on filedocumented in this encounter Care Teams Beer Brewer Relationship Specialty Start Date End Date Loren Beyer MD [facility] & [address] [address] PCP - General Family Practice 11/15/17 Teresa Chiu, RN Registered Nurse Cardiology 07/15/23 Meenu Denis DO [address] [place] [address] Assigned Heart and Vascular Provider 07/29/23 documented as of this encounter
--- OUTSIDE RECORDS SUMMARY | 2024-01-13 03:51 | XMS_ITS | Encounter Summary ---
Author Organization [place] Address [address] [facility] [place] [address] Care Team Providers Care Bowling Pin Setters Installer Name Role Phone Loren Beyer MD Primary Care Provider + Brian Abreu MD Unavailable Sakina Osborne APRN GAME DESIGNER Unavailable [phone] Teresa Chiu RN Unavailable Unavaila Meenu Alves DO Unavailable [phone] Encounter Details Date Type Department Care Team (Late st Contact Info) Description 01/24/2023 External Order Results [facility] [address] [place] [address] Outside, Provider Social History Tobacco Use Types [...] Description 01/23/2024 1:15 PM CDT Office Visit [facility] [place] [address] [facility] [address] [place] [address] Meenu Denis DO [address] [place] [address] documented as of this encounter Procedures Procedure [...] - BLOOD ORDERABL ES Performing Organization Address [facility] Co de Phone Number BREEZE PFT NON-INTERFACED (ONBASE SCANS) * Hepatic function [...] LAB - BLOOD ORDERABL Performing Organization Address [facility] de Phone Number GENAROEZE PFT NON-INTERFACED (ONBASE [...] - BLOOD ORDERABL ES Performing Organization Address [facility]/State/ZIP Co de Phone Number BREEZE PFT NON-INTERFACED [...] on filedocumented in this encounter Care Teams Bowling Pin Setters Installer Relationship Specialty Start Date End Date Loren Beyer MD [facility] & [address] [address] PCP - General Family Practice 11/15/17 Brian Abreu MD [address] [place] [id number] Assigned Heart and Vascular Provider 02/26/23 05/06/23 Sakina Osborne APRN GAME DESIGNER [address] [place] [id number] Assigned Heart and Vascular Provider 05/07/23 07/28/23 Teresa Chiu, HEENA Registered Nurse Cardiology 07/15/23 Meenu Denis DO [address] [place] [id number] Assigned Heart and Vascular Provider 07/29/23 documented as of this encounter
--- OUTSIDE RECORDS SUMMARY | 2024-01-13 03:51 | XMS_ITS | Encounter Summary ---
Author Organization [place] Address [address] [facility] [place] [address] Care Team Providers Care Chair Maker Name Role Phone Loren Beyer MD Primary Care Provider + Teresa Chiu RN Unavailable Unavaila ble Meenu Denis DO Unavailable [phone] Reason for Visit * Reason Onset Date Comments Symptoms 12/02/2023 Feeling in a Fog and exhausted all the time Encounter Details Date Type Department Care Team (Late st Contact Info) Description 12/02/[address] [facility] [address] [place] [id number] [place] [address] [place] [address] [address] [place], [place] [id number] Symptoms (Feeling in a Fog and exhausted all the time) Social History Tobacco Use Types Packs/Day Years [...] documented as of this encounter Miscellaneous Notes * Telephone Encounter - Mery Hernandez RN - 12/02/2023 3:33 PM CDT Patient returned call and states she is fatigued all the time and has been noting intermittent chest pain. Patient states CP is not exertional and may be anxiety related. Patient feels it has been this way for several months. States she is tired of being tired all the time and is tearful on phone. Patient would like her medications looked at as a cause. RN did advise an office visit to discuss this vs by phone. Patient in agreement and urgent OV in December. Patient advised to call clinic or go to ER if symptoms worsen in the meantime. Mery Hernandez RN on 12/02/2023 at 3:36 PM * Telephone Encounter - Mery Hernandez RN - 12/02/2023 3:23 PM CDT Message left for patient to return call to RN at [phone] Mery Hernandez RN on 12/02/2023 at 3:24 PM * Telephone Encounter - Fabi Izaguirre - 12/02/2023 2:31 PM CDT [facility] Phone Message May a detailed message be left on voicemail: yes Reason for Call: Symptoms or Concerns If patient has red-flag symptoms, warm transfer to triage line Current symptom or concern: Feeling in a Fog and exhausted all the time with all the medications she is currently taking Action Taken: Other: Cardiology Travel Screening: Not Applicable Thank you! [facility] Date of Service: documented in this encounter Plan of Treatment Upcoming Encounters Date Type Department Care Team (Late st Contact Info) Description 01/23/2024 1:15 PM CDT Office Visit [facility] Heart [address] [address] Meenu Denis DO [address] [place] [address] documented as of this encounter Visit Diagnoses Not on filedocumented in this encounter Care Teams Chair Maker Relationship Specialty Start Date End Date Loren Beyer MD [facility] & [address] [address] PCP - General Family Practice 11/15/17 Teresa Chiu, RN Registered Nurse Cardiology 07/15/23 Meenu Denis DO [address] [place] [address] Assigned Heart and Vascular Provider 07/29/23 documented as of this encounter
--- OUTSIDE RECORDS SUMMARY | 2024-01-13 03:51 | XMS_ITS | Encounter Summary ---
Author Organization [place] Address [address] [facility] [place] [place] [address] Care Team Providers Care Planning Advisor Name Role Phone Loren Beyer MD Primary Care Provider + Teresa Chiu RN Unavailable Unavaila Meenu Alves DO Unavailable [phone] Reason for Visit * Reason Comments Chest Pain * Auth/Cert (Routine) Specialty Diagnoses / Procedures Referred By Lukasz t Referred To Contact Med Surg Diagnoses Hypoxemia Hypertensive urgency Chest pain, unspecified type Pneumonia due to infectious organism, unspecified laterality, unspecified part of lung Chest pain, unspecified type Hypoxemia Pneumonia due to infectious organism, unspecified laterality, unspecified part of lung Hypertensive urgency Observation Dept [address] [place] [address] Referral ID Status Reason Start Date Expiration Date Visits Re quested Visits Authorized [id number] 1 1 Encounter Details Date Type Department Care Team (Late st Contact Info) Description 01/12/2024 3:33 AM CDT - Present Hospital Encounter [facility] Observation Dept [address] [place] [address] Adan Irene MD [facility] [address] [place], [place] [id number] Marcio Love DO [facility] [address] [place], [place] [id number] Aletha Ca MD [address] [place], [place] [id number] Jenise Oro MD [address] [place] [address] Chest pain, unspecified type; Hypoxemia; Pneumonia due to infectious organism, unspecified laterality, unspecified part of lung; Hypertensive urgency Social History Tobacco Use Types Packs/Day Years [...] Date Recorded Do you have housing? (Emily g is defined as stable permanent housing and does not include staying ouside in a car, in a tent, in an abandoned building, in an overnight skilled nursing, or couch-surfing.) Yes 01/12/2024 Are you worried [...] Mass Index 24.64 01/12/2024 11:14 AM CDT documented in this encounter Progress Notes * Ailin Garrido RN - 01/12/2024 9:52 PM CDT Cross cover paged for home medications.. Provider stated will order similar doses: MAXIMO Wilder brought home meds calcium carbonate (TUMS) 1177 mg chewable and simethicone 125 mg chewable to the floor. Very adamant to have these meds here and relabeled for usage... was wondering ifcan get a order for it? * Ailin Garrido RN - 01/12/2024 9:07 PM CDT Notified Provider of home medication being brought in... Was redirected to cross cover.Will contact. MAXIMO Wilder brought home meds calcium carbonate (TUMS) 1177 mg chewable and simethicone 125 mg chewable to the floor. Very adamant to have these meds here and relabeled for usage.. was wondering if can get a order for it? Will be sending the meds to main pharmacy. * Ailin Garrido RN - 01/12/2024 5:47 PM CDT Patient noted to have o2 at 93. Increased wheezes inspiratory and expiratory progressing worse. Albuterol administered earlier than scheduled dose, HOB UP. Pt refuses Oxygen.. nasal cannula in room just in case. PT refuses auto BP.. taken manually for 160/90. * Isabel Nolan RN - 01/12/2024 10:48 AM CDT [facility] ED Boarding Nurse Handoff Addendum Report: Date/time: 01/12/2024, 10:48 AM Activity Level: standby Fall Risk: Yes: bed/chair alarm on, nonskid shoes/slippers when out of bed, arm band in place, patient and family education, assistive device/personal items within reach, and activity supervised Active Infusions: None Current Meds Due: See MAR Current care needs: Monitor BP. Monitor for chest pain and SOB Oxygen requirements (liters/min and/or FiO2): None Respiratory status: Room air Vital signs (within last 30 minutes): Vitals: 01/12/24 0653 01/12/24 0745 01/12/24 0900 01/12/24 0938 BP: (!) 173/66 (!) 186/100 114/89 Pulse: 70 66 69 64 Resp: 20 Temp: TempSrc: SpO2: 95% 95% 95% 96% Weight: Height: Focused assessment within last 30 minutes: A&O x 4. Anxious. VSS. C/o chest pain. PRN Tylenol given. Had some pain relief. States feels better whole sitting up or ambulating. Voided. Had one loose stool today. PIV SL. 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 HUTTON. LS expiratory wheezes and diminished ED Boarding Nurse name: Isabel Nolan RN * Jenise Oro MD - 01/12/2024 8:38 AM CDT Images from the original note were not included. [facility] Hospitalist Progress Note Name: Fawad Unger Provider: Jenise Oro MD Date of Service: 01/12/2024 Assessment & Plan Summary of Stay: Fawad Unger is a 88 year old female who was admitted on 01/12/2024 for stabbing chest pain, acute respiratory failure with hypoxia possible pneumonia, ? Colitis and elevated troponin. Her past medical history significant for hypertension hyperlipidemia type 2 diabetes mellitus diet controlled, coronary artery disease STEMI in December 2022, asthma, hypothyroidism, depression with anxiety, chronic idiopathic urticaria or eczema on daily prednisone and hyponatremia. Atypical chest pain -Per history was stabbing sharp reproducible suggestive of musculoskeletal pain -Imaging does show lingular infiltrate cannot exclude pneumonia -Is allergic to anti-inflammatory medication and aspirin due to her asthma -She is chronically on steroids received Methylpred 20 mg in the emergency room as an anti-inflammatory for atypical chest pain. ?Pneumonia Acute respiratory failure with hypoxia -Sats were low 90s, his leukocytosis -Started on ceftriaxone for possible pneumonia -Procalcitonin within normal limit -No fever -Leukocytosis could be due to prednisone -Low likelihood of pneumonia. Will discontinue ceftriaxone -Will treat for atypical/ bronchitis and complete course for azithromycin Mild troponin elevation -Likely due to uncontrolled hypertension -Troponin plateaued at about 18 -Will check cardiac echo in her history and questionable pleuritic pain Uncontrolled hypertension Hyperlipidemia History of coronary artery disease -Will continue losartan 25 twice daily -Clonidine twice daily -As needed hydralazine Focal colitis -Noted on CT patient does not have any abdominal symptoms no nausea no vomiting no diarrhea -Repeat CT recommended in 4 weeks -Patient will need outpatient follow-up with primary care provider to arrange this. Thyroid nodule noted on CT -Will need outpatient follow-up defer to primary care -Will check TSH Type 2 diabetes mellitus -Diet controlled -Hyperglycemia in response to steroid -Sliding scale insulin Asthma -Resume prior to admission meds inhalers Depression and anxiety -Resume prior to admission sertraline and as needed lorazepam Chronic idiopathic urticaria -Chronically on prednisone Anemia -Baseline Hgb around 11 was 9 on admission no signs of active bleeding will continue to monitor DVT Prophylaxis: Pneumatic Compression Devices Code Status: No CPR- Do NOT Intubate Interval History Assumed care reviewed chart. Patient evaluated in the emergency room. Patient was quite anxious about her pain is localized pinpoint sharp intermittent lasting less than a minute some improvement after one-time dose of steroids. Offered other treatment patient would like to avoid any medications for that at this time. Complains of generalized malaise and weakness and is frustrated about not getting her inhalers. More than 10 review of system was carried out was otherwise negative -Data reviewed today: I reviewed all new labs and imaging reports over the last 24 hours. I personally reviewed no images or EKG's today. Physical Exam Temp: 98.4 ??F (36.9 ??C) Temp src: Oral BP: (!) 186/100 Pulse: 66 Resp: 20 SpO2: 95 % O2 Device: None (Room air) Oxygen Delivery: 1 LPM Vitals: 01/12/24 0335 Weight: 50.8 kg (112 lb) Vital Signs with Ranges Temp: [98.4 ??F (36.9 ??C)] 98.4 ??F (36.9 ??C) Pulse: [56-73] 66 Resp: [11-29] 20 BP: (173-227)/(66-100) 186/100 SpO2: [84 %-97 %] 95 % No intake/output data recorded. GEN: Alert, oriented x 3, appears comfortable, NAD. Patient is anxious about her inhalers HEENT: Normocephalic/atraumatic, no scleral icterus, no nasal discharge, mouth moist. CV: Regular rate and rhythm, no murmur or JVD. S1 + S2 noted, no S3 or S4. LUNGS: Clear to auscultation bilaterally without rales/rhonchi/wheezing/retractions. Symmetric chest rise on inhalation noted. ABD: Active bowel sounds, soft, non-tender/non-distended. No rebound/guarding/rigidity. EXT: No edema. No cyanosis. No joint synovitis noted. SKIN: Dry to touch, no exanthems noted in the visualized areas. Medications Current Facility-Administered Medications Medication Dose Route Frequency Provider Last Rate Last Admin Current Facility-Administered Medications Medication Dose Route Frequency Provider Last Rate Last Admin albuterol (PROVENTIL HFA/VENTOLIN HFA) inhaler 2 puff Inhalation BID Jenise Oro MD azithromycin (ZITHROMAX) 500 mg in NS 250 mL intermittent infusion 500 mg Intravenous Q24H Adan Irene MD Stopped at 01/12/24 0614 [START ON 01/13/2024] cefTRIAXone (ROCEPHIN) 1 g vial to attach to NS 100 mL bag for ADULTS or NS 50mL bag for PEDS 1 g Intravenous Q24H Aletha Ca MD ciclesonide (ALVESCO) 160 MCG/ACT inhaler 2 puff 2 puff Inhalation BID Jenise Oro MD cloNIDine (CATAPRES) half-tab 0.05 mg 0.05 mg Oral BID Aletha Ca MD clopidogrel (PLAVIX) tablet 75 mg 75 mg Oral Daily Jenise Oro MD ezetimibe (ZETIA) tablet 10 mg 10 mg Oral Daily Jenise Oro MD fluticasone (FLOVENT HFA) 110 MCG/ACT Inhaler 2 puff 2 puff Inhalation BID Jenise Oro MD lactase (LACTAID) tablet 3,000 Units 3,000 Units Oral TID w/meals Jenise Oro MD levothyroxine (SYNTHROID/LEVOTHROID) tablet 25 mcg 25 mcg Oral Aletha Bishop MD losartan (COZAAR) tablet 25 mg 25 mg Oral BID Aletha Ca MD methylPREDNISolone sodium succinate (SOLU-MEDROL) injection 20 mg 20 mg Intravenous Once Aletha Ca MD metoprolol succinate ER (TOPROL XL) 24 hr tablet 25 mg 25 mg Oral Daily Aletha Ca MD omeprazole (PriLOSEC) CR capsule 40 mg 40 mg Oral BID Jenise Oro MD polyethylene glycol (MIRALAX) Packet 17 g 17 g Oral Daily Aletha Ca MD 17 g at 01/12/24 0802 predniSONE (DELTASONE) tablet 5 mg 5 mg Oral Aletha Bishop MD sertraline (ZOLOFT) tablet 50 mg 50 mg Oral QPM Aletha Ca MD Data No results for input(s): PH, PHV, PO2, PO2V, SAT, PCO2, PCO2V, HCO3, HCO3V in thelast 168 hours. Recent Labs Lab 01/12/24338 WBC 12.2* HGB 9.9* HCT 32.6* MCV 79 PLT 206 Recent Labs Lab 01/12/24338 NA 134* POTASSIUM 3.6 CHLORIDE 99 CO2 24 ANIONGAP 11 GLC 129* BUN 16.4 CR 0.92 GFRESTIMATED 60* KARY 8.9 7-Day Micro Results Collected Updated Procedure Result Status 01/12/2024 0540 01/12/2024 0634 Asymptomatic COVID-19 Virus (Coronavirus) by PCR Nasopharyngeal [[id number]] Swab from Nasopharyngeal Final result Component Value SARS CoV2 PCR Negative NEGATIVE: SARS-CoV-2 (COVID-19) RNA not detected, presumed negative. No results for input(s): NTBNPI, NTBNP in the last 168 hours. Recent Labs Lab 01/12/24338 HGB 9.9* No results for input(s): AST, ALT, GGT, ALKPHOS, BILITOTAL, BILICONJ, BILIDIRECT, BRIE in the last 168 hours. Invalid input(s): BILIRUBININDIRECT No results for input(s): INR in the last 168 hours. No results for input(s): LACT in the last 168 hours. Recent Labs Lab 01/12/24338 BUN 16.4 CR 0.92 Recent Labs Lab 01/12/24 05 TSH 2.47 No results for input(s): TROPONIN, TROPI, TROPR, TROPONINIS in the last 168 hours. Invalid input(s): TROPT, TROP, TROPONINIES, TNIH No results for input(s): COLOR, APPEARANCE, URINEGLC, URINEBILI, URINEKETONE, SG, UBLD, URINEPH, PROTEIN, UROBILINOGEN, NITRITE, LEUKEST, RBCU, WBCU in the last 168 hours. Recent Results (from the past 24 hour(s)) CT Chest Pulmonary Embolism w Contrast Narrative EXAM: CT CHEST PULMONARY EMBOLISM W CONTRAST LOCATION: [facility] DATE: 01/12/2024 INDICATION: left anterior chest pain, sharp, higher risk for PE COMPARISON: None. TECHNIQUE: CT chest pulmonary angiogram during arterial phase injection of IV contrast. Multiplanarreformats and MIP reconstructions were performed. Dose reduction techniques were used. CONTRAST: 51mL Isovue 370 FINDINGS: ANGIOGRAM CHEST: Pulmonary arteries are normal caliber and negative for pulmonary emboli. Thoracic aorta is not well opacified and is indeterminate for dissection. No CT evidence of right [...] shoulder arthroplasty. Mild compression superior endplate L1. Impression IMPRESSION: 1. No visualized pulmonary emboli. 2. Multifocal reticulonodular infiltrates. Infiltrate within the lingula and bibasilar atelectasis or infiltrate. Correlate for pneumonia including atypical infection. Follow-up to confirm resolution. 3. Wall thickening splenic flexure of the colon with mild adjacent inflammation. Findings could be due to acute diverticulitis or focal colitis. Follow-up to confirm resolution necessary to exclude focal lesion. 4. 3.6 cm left thyroid nodule. 5. Cholelithiasis. REFERENCE: Javid JK et al. Managing Incidental Thyroid Nodules Detected on Imaging: White Paper of the ACR Incidental Thyroid Findings Committee. JACR 2015; 12:143-150. Incidental thyroid nodule detected on CT or MRI without suspicious findings. Applies to general population without limited life expectancy or significant comorbidities. 1. Age greater than or equal to 35 years 2. Less than 1.5 cm: No further evaluation. 3. Greater than or equal to 1.5 cm: Evaluate with thyroid ultrasound. documented in this encounter H&P Notes * Aletha Ca MD - 01/12/2024 7:09 AM CDT History and Physical Fawad Unger Date of : 1935 Age: [age] year old Date of Admission: 01/12/2024 Primary care provider: Loren Beyer Assessment and Plan: Summary of Stay: Fawad Unger is a 88 year old female with a history of htn/hlp/K6it-brpe controlled, CAD -stemi in 12/2022 single vessels dz with RCA 80 % stenosed s/p ARI, most recent echo 04/07 EF 60-65 % G1dd, asthma, hypothyroidism, depression with anxiety, chronic idiopathic urticaria/eczema on daily prednisone, hyponatremia admitted on 01/12/2024 with stabbing chest pain and ? 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 It's very localized to an mid left sided intercostal sight. She does not feel sob/n/v/diaphoretic with the episodes. Seems to last a few minutes and then she will befine for quite some time. Although she can't pinpoint and exacerbating or relieving factors she note s that on the ambulance ride every time they hit a bump the pain recurred and then gone when on smooth surfaces. She also notes that it;s better when she is standing up rather than sitting, she hasn't laid down since the symptoms began. Both intensity and frequency worsened, she actually tried a ntg with some transient relief but sx became concerning so called EMS to come in to get checked out. She denies any antecedent viral symptoms, denies any fevers, reports chronic cough/throat clearing that is unchanged. Denies other chest pain. This pain is not similar to her heart attack last year. Denies any n/v/d or abdominal pain. No dysuria ER notable for hypertension in the 200-220/70-90's. HR 60's. Respiratory status is notable for somehypoxia in the mid 80's. Exam-lungs are clear BMP with hyponatremia 134 CBC leukocytosis 12.2 with monocytosis and neutrophilia Trop 18->18 EKG NSR without ischemic findings CT PE: No PE. Multifocal reticulonodular infiltrates lingula/bibasilar atelectasis or infiltrate: ?Pna vs atypical infection. Also noted to have some wall thickening of the splenic flexure with mildadjacent inflammation-focal colitis vs diverticulitis. 3.6 thyroid nodule Problem List: Stabbing chest pain Doesn't seem like cardiac chest pain although pericarditis did come to mind with her position changes. Although that doesn;t seem to fit with the pinpoint very reproducible tenderness. ? Costochondritis? She denies any antecedent URI sx, but does have these pulmonary infiltrates and predominantly in the left lingula which is close to where her pain is so that could still fit. Or just straight up MSK pain although nicanor strange to just come on out of the blue -she has an aspirin allergy due to asthma so presumably would not tolerate NSAIDs as well -will give single dose methylpred 20 mg and assess response ?Pna Acute hypoxic respiratory failure She has an oximeter at home and is typically 98 % although lately has noticed that her sats have been as low as 93% lately. She has a leukocytosis. But she's denies fevers or change in her chronic cough. So not very convincing but I don't have another reason for her hypoxia Started on ceftriaxone and azithromycin but when she received her azith she became very nauseous -will continue with ceftriaxone -ck procal ? Focal colitis She has no n/v/d or abdominal pain. Per CT guidelines recommendations are for follow-up to exclude a focal lesion. -?repeat CT in 4 weeks ? No specific recs on duration of follow-up were made Elevated troponin I think related to uncontrolled hypertension. She has this stabbing chest pain but trops flat, EKG is non-ischemic and she states this is dissimilar to her previous cardiac pain Hypertension Hyperlipidemia CAD. G1dd Hypertensive while in the ER-partly due to agitation from the BP cuff and being in the ER. 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 and prn lorazepam Hyponatremia She states she has a tendency to this and will fix it by modifying how much salt she takes in Anemia Chronically in the low 11 range, currently at 9.9 range -monitor Incidental thyroid nodule 3.6 cm since its > 1 cm should have further w/up with PCP -I did not have the opportunity to discuss this with her DVT Prophylaxis: Low Risk/Ambulatory with no VTE prophylaxis indicated Code Status: DNR / DNI I verified this with both her and her at the bedside Functional Status: lives with , neglected to ask ambulatory status Morales: not needed Access: PIV Time spent 80 minutes reviewing epic including notes/labs/prior hx, current medications. In addition to interviewing and examining the patient, updated patient and family regarding plan of care Chief Complaint: Stabbing chest pain History of Present Illness: Fawad Unger is a 88 year old female with a history of htn/hlp/Q1ow-dufo controlled, CAD -stemi in 12/2022 single vessels dz with RCA 80 % stenosed s/p ARI, most recent echo 04/07 EF 60-65 % G1dd, asthma, hypothyroidism, depression with anxiety, chronic idiopathic urticaria/eczema on daily prednisone, hyponatremia admitted on 01/12/2024 with stabbing chest pain and ? 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 It's very localized to an mid left sided intercostal sight. She does not feel sob/n/v/diaphoretic with the episodes. Seems to last a few minutes and then she will befine for quite some time. Although she can't pinpoint and exacerbating or relieving factors she note s that on the ambulance ride every time they hit a bump the pain recurred and then gone when on smooth surfaces. She also notes that it;s better when she is standing up rather than sitting, she hasn't laid down since the symptoms began. Both intensity and frequency worsened, she actually tried a ntg with some transient relief but sx became concerning so called EMS to come in to get checked out. She denies any antecedent viral symptoms, denies any fevers, reports chronic cough/throat clearing that is unchanged. Denies other chest pain. This pain is not similar to her heart attack last year. Denies any n/v/d or abdominal pain. No dysuria ER notable for hypertension in the 200-220/70-90's. HR 60's. Respiratory status is notable for somehypoxia in the mid 80's. Exam-lungs are clear BMP with hyponatremia 134 CBC leukocytosis 12.2 with monocytosis and neutrophilia Trop 18->18 EKG NSR without ischemic findings CT PE: No PE. Multifocal reticulonodular infiltrates lingula/bibasilar atelectasis or infiltrate: ?Pna vs atypical infection. Also noted to have some wall thickening of the splenic flexure with mildadjacent inflammation-focal colitis vs diverticulitis. 3.6 thyroid nodule The history is obtained in discussion with the ER provider Adan Irene MD and the patient with excellent reliability Epic and Care everywhere were extensively reviewed Past Medical History: Past Medical History: Diagnosis Date Anesthesia Very slow to wake up. High reaction to meds Anxiety situational Arthritis Asthma Benign essential hypertension 03/04/2023 Chronic systolic congestive heart failure (H) 01/04/2023 Constipation Dysthymia Gastro-oesophageal reflux disease Hypertension Neuralgia, postherpetic Osteoporosis ST elevation myocardial infarction involving left anterior descending (LAD) coronary artery (H) 01/04/2023 Thyroid disease hypothyroid Urgency of urination Vertigo Past Surgical History: Past Surgical History: Procedure Laterality Date DILATION [...] Farr MD; Location: OR TONSILLECTOMY & ADENOIDECTOMY Social History: Social History Tobacco Use Smoking status: Never Smokeless tobacco: Never Substance Use Topics Alcohol use: No Family History: I have reviewed this patient's family history Allergies: Allergies Allergen Reactions Food Any contact with peas, even odor, causes throat to swell shut. Spicy and acidic foods cause GERD Penicillins Swelling Head swells; asthma flares up Sulfa Antibiotics Shortness Of Breath and Swelling asthma flares up Azithromycin Nausea and Vomiting Alendronate [Alendronate] Animal Dander Asthma Aspirin Doesn't [...] based salves and lotions cause rash Medications: Await med rec Review of Systems: A Comprehensive greater than 10 system review of systems was carried out. Pertinent positives and negatives are noted above. Otherwise negative for contributory information. Physical Exam: Blood pressure (!) 227/78, pulse 62, temperature 98.4 ??F (36.9 ??C), temperature source Oral, resp. rate 14, height 1.473 m (4' 10), weight 50.8 kg (112 lb), SpO2 97%. Exam: General: Pleasant nad looks stated age HEENT: Head nc/at sclera clear PER. Neck is supple Lungs: cta b nl effort CV: RRR no m/r/g no le edema Abd: S/nt/nd no r/g Neuro: Cn 2-12 grossly intact and valera Alert and oriented affect appropriate Skin: W/d no c/c Data: Results for orders placed or performed during the hospital encounter of 01/12/24 CT Chest Pulmonary Embolism w Contrast Status: None Narrative EXAM: CT CHEST PULMONARY EMBOLISM W CONTRAST LOCATION: [facility] DATE: 01/12/2024 INDICATION: left anterior chest pain, sharp, higher risk for PE COMPARISON: None. TECHNIQUE: CT chest pulmonary angiogram during arterial phase injection of IV contrast. Multiplanarreformats and MIP reconstructions were performed. Dose reduction techniques were used. CONTRAST: 51mL Isovue 370 FINDINGS: ANGIOGRAM CHEST: Pulmonary arteries are normal caliber and negative for pulmonary emboli. Thoracic aorta is not well opacified and is indeterminate for dissection. No CT evidence of right [...] shoulder arthroplasty. Mild compression superior endplate L1. Impression IMPRESSION: 1. No visualized pulmonary emboli. 2. Multifocal reticulonodular infiltrates. Infiltrate within the lingula and bibasilar atelectasis or infiltrate. Correlate for pneumonia including atypical infection. Follow-up to confirm resolution. 3. Wall thickening splenic flexure of the colon with mild adjacent inflammation. Findings could be due to acute diverticulitis or focal colitis. Follow-up to confirm resolution necessary to exclude focal lesion. 4. 3.6 cm left thyroid nodule. 5. Cholelithiasis. REFERENCE: Javid RENAE et al. Managing Incidental Thyroid Nodules Detected on Imaging: White Paper of the ACR Incidental Thyroid Findings Committee. JACR 2015; 12:143-150. Incidental thyroid nodule detected on CT or MRI without suspicious findings. Applies to general population without limited life expectancy or significant comorbidities. 1. Age greater than or equal to 35 years 2. Less than 1.5 cm: No further evaluation. 3. Greater than or equal to 1.5 cm: Evaluate with thyroid ultrasound. Basic metabolic panel Status: Abnormal Result Value Ref Range Sodium 134 (L) 135 - 145 mmol/L Potassium 3.6 3.4 - 5.3 mmol/L Chloride 99 98 - 107 mmol/L Carbon Dioxide (CO2) 24 22 - 29 mmol/L Anion Gap 11 7 - 15 mmol/L Urea Nitrogen 16.4 8.0 - 23.0 mg/dL Creatinine 0.92 0.51 - 0.95 mg/dL GFR Estimate 60 (L) >60 mL/min/1.73m2 Calcium 8.9 8.8 - 10.4 mg/dL Glucose 129 (H) 70 - 99 mg/dL Troponin T, High Sensitivity Status: Abnormal Result Value Ref Range Troponin T, High Sensitivity 18 (H) <=14 ng/L [place] Draw Status: None Narrative The following orders were created for panel order [place] Draw. Procedure Abnormality Status --------- ------ Extra Blue Top Tube[[id number]] Final result Extra Red Top Tube[[id number]] Final result Please view results for these tests on the individual orders. CBC with platelets and differential Status: Abnormal Result Value Ref Range WBC Count 12.2 (H) 4.0 - 11.0 10e3/uL RBC Count 4.15 3.80 - 5.20 10e6/uL Hemoglobin 9.9 (L) 11.7 - 15.7 g/dL Hematocrit 32.6 (L) 35.0 - 47.0 % MCV 79 78 - 100 fL MCH 23.9 (L) 26.5 - 33.0 pg MCHC 30.4 (L) 31.5 - 36.5 g/dL RDW 16.7 (H) 10.0 - 15.0 % Platelet Count 206 150 - 450 10e3/uL % Neutrophils 72 % % Lymphocytes 13 % % Monocytes 11 % % Eosinophils 3 % % Basophils 0 % % Immature Granulocytes 1 % NRBCs per 100 WBC 0 <1 /100 Absolute Neutrophils 8.8 (H) 1.6 - 8.3 10e3/uL Absolute Lymphocytes 1.6 0.8 - 5.3 10e3/uL Absolute Monocytes 1.4 (H) 0.0 - 1.3 10e3/uL Absolute Eosinophils 0.3 0.0 - 0.7 10e3/uL Absolute Basophils 0.1 0.0 - 0.2 10e3/uL Absolute Immature Granulocytes 0.1 <=0.4 10e3/uL Absolute NRBCs 0.0 10e3/uL Extra Blue Top Tube Status: None Result Value Ref Range Hold Specimen JIC Extra Red Top Tube Status: None Result Value Ref Range Hold Specimen JIC Troponin T, High Sensitivity (now) Status: Abnormal Result Value Ref Range Troponin T, High Sensitivity 18 (H) <=14 ng/L Asymptomatic COVID-19 Virus (Coronavirus) by PCR Nasopharyngeal Status: Normal Specimen: Nasopharyngeal; Swab Result Value Ref Range SARS CoV2 PCR Negative Negative Narrative Testing was performed using the Xpert Xpress SARS-CoV-2 Assay on the [employer]. Additional information about this Emergency [...] testing. This test has not been FDA crystal red or approved. A negative result does not rule out the presence of PCR inhibitors in the specimenor target RNA concentration below the limit of detection for the assay. The possibility of a false negative should be considered if the patient's recent exposure or clinical presentation suggests COVID-19. This test was validated by the [facility]. This laboratory is certified under the Clinical Laboratory Improvement Amendments (CLIA) as qualified to perform high complexity laboratory testing. EKG 12 lead Status: None Result Value Ref Range Systolic Blood Pressure mmHg Diastolic Blood Pressure mmHg Ventricular Rate 68 BPM Atrial Rate 68 BPM MI Interval 172 ms QRS Duration 76 ms QT 388 ms QTc 412 ms P [place] 50 degrees R AXIS -34 degrees T [place] 13 degrees Interpretation ECG Sinus rhythm Left axis deviation Anterior infarct , age undetermined Abnormal ECG No previous ECGs available Unconfirmed report - interpretation of this ECG is computer generated - see medical record for final interpretation Confirmed by - EMERGENCY ROOM, PHYSICIAN ([id number]), purchase request editor GONZALEZ GAVIRIA ([id number]) on 01/12/2024 6:48:00AM CBC with Platelets & Differential Status: Abnormal Narrative The following orders were created for panel order CBC with Platelets & Differential. Procedure Abnormality Status --------- ------ CBC with platelets and d...[[id number]] Abnormal Final result Please view results for these tests on the individual orders. documented in this encounter ED Notes * Nataliia Agarwal RN - 01/12/2024 7:37 AM CDT Bed: ED19 Expected date: 01/12/24 Expected time: 7:00 AM Means of arrival: Comments: Ed 14 * Nargis Santana RN - 01/12/2024 6:17 AM CDT Upon initiation of azithromycin, pt became very nauseous. Infusion stopped immediately and made aware. * Chuyita Ramirez RN - 01/12/2024 5:30 AM CDT [facility] ED Nurse Handoff Report ED Chief complaint: Chest Pain . ED Diagnosis: Final diagnoses: None Allergies: Allergies Allergen Reactions Food Any contact with [...] Petroleum based salves and lotions cause rash Code Status: DNR / DNI Activity level - Baseline/Home: standby. Activity Level - Current: in bed. Lift room needed: No. Bariatric: No Dragline Mechanic Needed: No Isolation: No. Infection: Not Applicable. Respiratory status: nasal cannula (not on o2 at baseline) Vital Signs (within 30 minutes): Vitals: 01/12/24 0424 01/12/24 0505 01/12/24 0514 01/12/24 0515 BP: (!) 194/72 Pulse: 57 56 57 56 Resp: 25 13 26 28 Temp: TempSrc: SpO2: 96% 95% (!) 84% 94% Weight: Height: Cardiac Rhythm: , Cardiac Cardiac Rhythm: Normal sinus rhythm Pain level: Patient confused: No. Patient Falls Risk: patient and family education, assistive device/personal items within reach, andactivity supervised. Elimination Status: not voided since being in ED Patient Report - Initial Complaint: chest pain. Focused Assessment: a/ox4, VERY HARD OF HEARING, hypertensive but NSR, on 2L NC for hypoxia with sleeping, PIV R AC, unsure how ambulated, from an assisted living with . Abnormal Results: Labs Ordered and Resulted from Time of ED Arrival to Time of ED Departure BASIC METABOLIC PANEL - Abnormal Result Value Sodium 134 (*) Potassium 3.6 Chloride 99 Carbon Dioxide (CO2) 24 Anion Gap 11 Urea Nitrogen 16.4 Creatinine 0.92 GFR Estimate 60 (*) Calcium 8.9 Glucose 129 (*) TROPONIN T, HIGH SENSITIVITY - Abnormal Troponin T, High Sensitivity 18 (*) CBC WITH PLATELETS AND DIFFERENTIAL - Abnormal WBC Count 12.2 (*) RBC Count 4.15 Hemoglobin 9.9 (*) Hematocrit 32.6 (*) MCV 79 MCH 23.9 (*) MCHC 30.4 (*) RDW 16.7 (*) Platelet Count 206 % Neutrophils 72 % Lymphocytes 13 % Monocytes 11 % Eosinophils 3 % Basophils 0 % Immature Granulocytes 1 NRBCs per 100 WBC 0 Absolute Neutrophils 8.8 (*) Absolute Lymphocytes 1.6 Absolute Monocytes 1.4 (*) Absolute Eosinophils 0.3 Absolute Basophils 0.1 Absolute Immature Granulocytes 0.1 Absolute NRBCs 0.0 TROPONIN T, HIGH SENSITIVITY CT Chest Pulmonary Embolism w Contrast Final Result IMPRESSION: 1. No visualized pulmonary emboli. 2. Multifocal reticulonodular infiltrates. Infiltrate within the lingula and bibasilar atelectasis or infiltrate. Correlate for pneumonia including atypical infection. Follow-up to confirm resolution. 3. Wall thickening splenic flexure of the colon with mild adjacent inflammation. Findings could be due to acute diverticulitis or focal colitis. Follow-up to confirm resolution necessary to exclude focal lesion. 4. 3.6 cm left thyroid nodule. 5. Cholelithiasis. REFERENCE: Javid RENAE et al. Managing Incidental Thyroid Nodules Detected on Imaging: White Paper of the ACR Incidental Thyroid Findings Committee. JACR 2015; 12:143-150. Incidental thyroid nodule detected on CT or MRI without suspicious findings. Applies to general population without limited life expectancy or significant comorbidities. 1. Age greater than or equal to 35 years 2. Less than 1.5 cm: No further evaluation. 3. Greater than or equal to 1.5 cm: Evaluate with thyroid ultrasound. Treatments provided: see mar Family Comments: at bedside OBS brochure/video discussed/provided to patient: No ED Medications: Medications cefTRIAXone (ROCEPHIN) 2 g vial to attach to NS 100 ml bag for ADULTS or NS 50 ml bag for PEDS (hasno administration in time range) azithromycin (ZITHROMAX) 500 mg in NS 250 mL intermittent infusion (has no administration in time range) acetaminophen (TYLENOL) tablet 1,000 mg (1,000 mg Oral $Given 01/12/24 5255) CT scan flush (72 mLs Intravenous $Given 01/12/24 1655) iopamidol (ISOVUE-370) solution 500 mL (51 mLs Intravenous $Given 01/12/24 0445) Drips infusing: No For the majority of the shift this patient was Green. Interventions performed were n/a. Sepsis treatment initiated: No Cares/treatment/interventions/medications to be completed following ED care: n/a ED Nurse Name: Nargis Santana RN 5:30 AM RECEIVING UNIT ED HANDOFF REVIEW Above ED Nurse Handoff Report was reviewed: Yes Reviewed by: Chuyita Ramirez RN on January 12, 2024 at 10:20 AM I Monique called the ED to inform them the note was read: Yes * Nerissa Dudley - 01/12/2024 5:15 AM CDT As patient slept, oxygen destated to 84%-87%, nasal cannula placed with 2L of oxygen * Nargis Santana RN - 01/12/2024 5:04 AM CDT Pt refusing automatic blood pressure and states it makes me anxious how tight it is and it goes higher, and at [facility] they only do manuals, so I wont have this automatic cuff any more... you can only take my pressure manually because I am anxious * Nargis Santana RN - 01/12/2024 3:57 AM CDT Pt refused duoneb prescibed by and was reluctant on taking 1000mg of tylenol and only wanting totake half. After some education pt took the 1000mg of tylenol but still does not want duoneb. made aware * Adan Irene MD - 01/12/2024 3:51 AM CDT Emergency Department Note History of Present Illness Chief Complaint Chest Pain HPI Fawad Unger is a 88 year old female who presents to the ER for evaluation of sharp left-sidedchest pain. In discussion with both patient and her , it seems that it has been intermittentover the past day. She has been taking nitroglycerin as well without any clear relief. Denies shortness of breath or cough or fever. She has history of cardiac stents but did not have similar symptoms previous to her stent placement. She woke up in the middle the night tonight with worsening pain and thus came to the ER for further evaluation. Past Medical History Medical History and Problem List Past Medical History: Diagnosis Date Anesthesia Anxiety Arthritis Asthma Benign essential hypertension 03/04/2023 Chronic systolic congestive heart failure (H) 01/04/2023 Constipation Dysthymia Gastro-oesophageal reflux disease Hypertension Neuralgia, postherpetic Osteoporosis ST elevation myocardial infarction involving left anterior descending (LAD) coronary artery (H) 01/04/2023 Thyroid disease Urgency of urination Vertigo Medications albuterol (PROAIR HFA, PROVENTIL HFA, VENTOLIN HFA) 108 (90 BASE) MCG/ACT inhaler artificial tears (GENTEAL) 0.1-0.2-0.3 % ophthalmic solution calcium carbonate (TUMS) 500 MG chewable tablet calcium-vitamin D (CALTRATE) 600-400 MG-UNIT per tablet chlorpheniramine (CHLOR-TRIMETON) 4 MG tablet cloNIDine (CATAPRES) 0.1 MG tablet clopidogrel (PLAVIX) 75 MG tablet ezetimibe (ZETIA) 10 MG tablet FLOVENT HFA 110 MCG/ACT inhaler levothyroxine (SYNTHROID/LEVOTHROID) 25 MCG tablet LORazepam (ATIVAN) 0.5 MG tablet losartan (COZAAR) 25 MG tablet metoprolol succinate ER (TOPROL XL) 25 MG 24 hr tablet multivitamin, therapeutic with minerals (MULTI-VITAMIN) TABS nitroGLYcerin (NITROSTAT) 0.4 MG sublingual tablet omeprazole (PRILOSEC) [address] capsule polyethylene glycol-propylene glycol (SYSTANE) 0.4-0.3 % SOLN ophthalmic solution predniSONE (DELTASONE) 5 MG tablet PREDNISONE PO sertraline (ZOLOFT) 50 MG tablet sodium chloride (OCEAN) 0.65 % nasal spray UNABLE TO FIND Surgical History Past Surgical History: Procedure Laterality Date DILATION [...] Farr MD; Location: OR TONSILLECTOMY & ADENOIDECTOMY Physical Exam Patient Vitals for the past 24 hrs: BP Temp Temp src Pulse Resp SpO2 Height Weight 01/12/24 0515 -- -- -- 56 28 94 % -- -- 01/12/24 0514 -- -- -- 57 26 (!) 84 % -- -- 01/12/24 0505 -- -- -- 56 13 95 % -- -- 01/12/24 0424 (!) 194/72 -- -- 57 25 96 % -- -- 01/12/24 0415 -- -- -- 61 11 97 % -- -- 01/12/24 0400 -- -- -- 63 29 96 % -- -- 01/12/24 0355 (!) 200/84 -- -- 73 15 90 % -- -- 01/12/24 0345 -- -- -- 66 21 95 % -- -- 01/12/24 0344 (!) 187/84 -- -- 64 15 93 % -- -- 01/12/24 0335 (!) 192/85 98.4 ??F (36.9 ??C) Oral 71 20 93 % 1.473 m (4' 10) 50.8 kg (112 lb) Physical Exam VS: Reviewed per above HENT: Mucous membranes moist EYES: sclera anicteric CV: Rate as noted, regular rhythm. RESP: Effort normal. Course expiratory breath sounds heard best without stethoscope- consider referred from upper airway secretions GI: no tenderness/rebound/guarding, not distended. NEURO: Alert, moving all extremities MSK: No deformity of the extremities SKIN: Warm and dry Diagnostics Lab Results Labs Ordered and Resulted from Time of ED Arrival to Time of ED Departure BASIC METABOLIC PANEL - Abnormal Result Value Sodium 134 (*) Potassium 3.6 Chloride 99 Carbon Dioxide (CO2) 24 Anion Gap 11 Urea Nitrogen 16.4 Creatinine 0.92 GFR Estimate 60 (*) Calcium 8.9 Glucose 129 (*) TROPONIN T, HIGH SENSITIVITY - Abnormal Troponin T, High Sensitivity 18 (*) CBC WITH PLATELETS AND DIFFERENTIAL - Abnormal WBC Count 12.2 (*) RBC Count 4.15 Hemoglobin 9.9 (*) Hematocrit 32.6 (*) MCV 79 MCH 23.9 (*) MCHC 30.4 (*) RDW 16.7 (*) Platelet Count 206 % Neutrophils 72 % Lymphocytes 13 % Monocytes 11 % Eosinophils 3 % Basophils 0 % Immature Granulocytes 1 NRBCs per 100 WBC 0 Absolute Neutrophils 8.8 (*) Absolute Lymphocytes 1.6 Absolute Monocytes 1.4 (*) Absolute Eosinophils 0.3 Absolute Basophils 0.1 Absolute Immature Granulocytes 0.1 Absolute NRBCs 0.0 TROPONIN T, HIGH SENSITIVITY COVID-19 VIRUS (CORONAVIRUS) BY PCR Imaging CT Chest Pulmonary Embolism w Contrast Final Result IMPRESSION: 1. No visualized pulmonary emboli. 2. Multifocal reticulonodular infiltrates. Infiltrate within the lingula and bibasilar atelectasis or infiltrate. Correlate for pneumonia including atypical infection. Follow-up to confirm resolution. 3. Wall thickening splenic flexure of the colon with mild adjacent inflammation. Findings could be due to acute diverticulitis or focal colitis. Follow-up to confirm resolution necessary to exclude focal lesion. 4. 3.6 cm left thyroid nodule. 5. Cholelithiasis. REFERENCE: Javid RENAE et al. Managing Incidental Thyroid Nodules Detected on Imaging: White Paper of the ACR Incidental Thyroid Findings Committee. JACR 2015; 12:143-150. Incidental thyroid nodule detected on CT or MRI without suspicious findings. Applies to general population without limited life expectancy or significant comorbidities. 1. Age greater than or equal to 35 years 2. Less than 1.5 cm: No further evaluation. 3. Greater than or equal to 1.5 cm: Evaluate with thyroid ultrasound. EKG ECG results from 01/12/24 EKG 12 lead Value Systolic Blood Pressure Diastolic Blood Pressure Ventricular Rate 68 Atrial Rate 68 MI Interval 172 QRS Duration 76 QT 388 QTc 412 P [place] 50 R AXIS -34 T [place] 13 Interpretation ECG Sinus rhythm Left axis deviation Anterior infarct , age undetermined Abnormal ECG No previous ECGs available ED Course Medications Administered Medications cefTRIAXone (ROCEPHIN) 2 g vial to attach to NS 100 ml bag for ADULTS or NS 50 ml bag for PEDS (hasno administration in time range) azithromycin (ZITHROMAX) 500 mg in NS 250 mL intermittent infusion (has no administration in time range) acetaminophen (TYLENOL) tablet 1,000 mg (1,000 mg Oral $Given 01/12/24 0353) CT scan flush (72 mLs Intravenous $Given 01/12/24 0445) iopamidol (ISOVUE-370) solution 500 mL (51 mLs Intravenous $Given 01/12/24 0445) Procedures Procedures ED Course Pt updated numerous times during ER course Pt admitted to DR Ca Medical Decision Making / Diagnosis MIPS CT for PE was ordered because the patient is high risk for pulmonary embolism. TAMMY Unger is a 88 year old female who presents to the ER for evaluation of 1 day of intermittent sharp left-sided chest discomfort. On arrival she is hypertensive. On exam she has some coarseexpiratory breath sounds, which seem to be referred from the upper airway rather than from the lungfields themselves. She is not objectively wheezing but given history of asthma I ordered DuoNeb. She declined this. Initial ECG does not show specific ischemic change. Initial troponin is only 18. Lower suspicion for ACS at this juncture. CT of the chest did not show PE but there were findings of multifocal reticulonodular infiltrates/pneumonia. Patient did not explicitly express an upper respirat ory/infectious symptoms, given some hypoxemia here requiring 2 L per nasal cannula, she was treatedwith IV antibiotics. COVID testing was ordered and pending. She was ultimately admitted to the hospital service for further evaluation/treatment of hypoxemia, likely pneumonia, further chest pain eval uation and blood pressure control. Disposition The patient was admitted to the hospital. Diagnosis ICD-10-CM 1. Chest pain, unspecified type R07.9 2. Hypoxemia R09.02 3. Pneumonia due to infectious organism, unspecified laterality, unspecified part of lung J18.9 4. Hypertensive urgency I16.0 Discharge Medications New Prescriptions No medications on file Adan Irene MD 01/12/24 0542 * Nargis Santana RN - 01/12/2024 3:36 AM CDT Pt arrives via EMS from assisted living with c/o chest pain. Last year pt had 3 stents placed. Pt was given 0.4mg nitroglycerin sublingual en route with no relief. Pt reports 10/10 pain. Pt was VSS en route * Nataliia Agarwal RN - 01/12/2024 3:33 AM CDT Bed: ED14 Expected date: Expected time: Means of arrival: Comments: [place] 335 documented in this encounter Miscellaneous Notes * Plan of Care - Ailin Garrido RN - 01/12/2024 9:51 PM CDT Goal Outcome Evaluation: Plan of Care Reviewed With: patient, spouse, child Overall Patient Progress: no changeOverall Patient Progress: no change Outcome Evaluation: PT A/O X4 with intermittent confusion. PT refuses autoBP cuff..had to take manual BP had HTN.. scheduled meds provided for it. PT c/o of increased upper gastric pain with nausea. Emesis prvided by technical support manager. IVP Ondanesteron provided due to PT request of nervousness in keeping PO med down. PT refuses Fall precautions. PT is indep in room. PT son and visited.. brought home medication (inhaler, simethicone and Tums) provider was notifed, pharamcy called for inhlaerand verified its usage.. it is now in patients in in med room. PT refuses the powder inhaler pharamcy ordered and prefers home one. Pt Informed to take other medications home. PT reports decreased nausea since admin of Zofran. Bilateral Wheezes and fine crackles heard in lungs, wheezes continued toexacerbate on shift O2 stats 93 PT declines oxygen (nasal cannula in tubing just in case), Providedalbuterol ahead of schedule.. pts wheezing decreased and sounds better. IV Saline locked. * Plan of Care - Chuyita Ramirez RN - 01/12/2024 2:31 PM CDT Goal Outcome Evaluation: Plan of Care Reviewed With: patient, spouse Overall Patient Progress: no changeOverall Patient Progress: no change Outcome Evaluation: Pt alert and oriented. Particular. Does not like our BP cuff and gets worked upduring BP with BP's 235/102. Did get BP meds into her and will give PRN hydralazine. Refusing fall bundle and is steady on feet. Up in [place] ambulating with . She wants him to stay overnight omega was allowed to when she had her shoulder surgery. Denies pain currently in chest. Echo done. Incontinent of bowel and bladder from time to time and using pullups. Makes needs known. Will monitor. Problem: Adult Inpatient Plan of Care Goal: Plan of Care Review Description: The Plan of Care Review/Shift note should be completed every shift. The Outcome Evaluation is a brief statement about your assessment that the patient is improving, declining, or no change. This information will be displayed automatically on your shift note. 01/12/2024 142 by Chuyita Ramirez, RN Outcome: Progressing Flowsheets (Taken 01/12/20241428) Outcome Evaluation: Pt alert and oriented. Particular. Does not like our BP cuff and gets worked upduring BP with BP's 235/102. Did get BP meds into her and will give PRN hydralazine. Refusing fall bundle and is steady on feet. Up in [place] ambulating with . She wants him to stay overnight omega was allowed to when she had her shoulder surgery. Denies pain currently in chest. Echo done. Incontinent of bowel and bladder from time to time and using pullups. Makes needs known. Will monitor. Plan of Care Reviewed With: patient spouse Overall Patient Progress: no change 01/12/2024 1257 by Chuyita Ramirez RN Outcome: Progressing Flowsheets (Taken 01/12/2024 1257) Plan of Care Reviewed With: patient spouse Overall Patient Progress: no change Goal: Patient-Specific Goal (Individualized) Description: You can add care plan individualizations to a care plan. Examples of Individualizationmight be: Parent requests to be called daily at 9am for status, I have a hard time hearing out of my right ear, or Do not touch me to wake me up as it startles me. 01/12/2024 1429 by Chuyita Ramirez RN Outcome: Progressing 01/12/2024 1257 by Chuyita Ramirez RN Outcome: Progressing Goal: Absence of Hospital-Acquired Illness or Injury 01/12/2024 1429 by Chuyita Ramirez RN Outcome: Progressing 01/12/2024 1257 by Chuyita Ramirez RN Outcome: Progressing Goal: Optimal Comfort and Wellbeing 01/12/2024 1429 by Chuyita Ramirez RN Outcome: Progressing 01/12/2024 1257 by Chuyita Ramirez RN Outcome: Progressing Goal: Readiness for Transition of Care 01/12/2024 1429 by Chuyita Ramirez RN Outcome: Progressing 01/12/2024 1257 by Chuyita Ramirez RN Outcome: Progressing Intervention: Mutually Develop Transition Plan Recent Flowsheet Documentation Taken 01/12/2024 1100 by Chuyita Ramirez RN Equipment Currently Used at Home: none Problem: Pain Acute Goal: Optimal Pain Control and Function Outcome: Progressing * Plan of Care - Chuyita Ramirez RN - 01/12/2024 12:58 PM CDT PRIMARY DIAGNOSIS: ACUTE PAIN OUTPATIENT/OBSERVATION GOALS TO BE MET BEFORE DISCHARGE: 1. Pain Status: Improved with use of alternative comfort measures i.e.: positioning 2. Return to near baseline physical activity: Yes 3. Cleared for discharge by consultants (if involved): No Blending Tank Tender Helper Nurse Safe discharge environment identified: Yes Barriers to discharge: Yes oriented to room. Particular. Ambulating ind in [place] with . She is refusing all fall risk as I am independent and am not a falls risk. Is steady walking. BP elevated but she is anxious when taking BP. Taking ativan then will recheck BP. Pain in chest 2. Appearscomfortable. Entered by: Chuyita Ramirez RN 01/12/2024 12:58 PM Please review provider order for any additional goals. Nurse to notify provider when observation goals have been met and patient is ready for discharge.Goal Outcome Evaluation: Plan of Care Reviewed With: patient, spouse Overall Patient Progress: no changeOverall Patient Progress: no change * Plan of Care - Chuyita Ramirez RN - 01/12/2024 11:47 AM CDT ROOM # 206 Living Situation (if not independent, order SW consult): Facility name: [facility] layout person: Amarjit Activity level at baseline: ind Activity level on admit: ind Patient registered to observation; given Patient Bill of Rights; given the opportunity to ask questions about observation status and their plan of care. Patient has been oriented to the observation room, bathroom and call light is in place. Discussed discharge goals and expectations with patient/family. Goal Outcome Evaluation: * Pharmacy-Admission Medication History - Bruna Bacon RPH - 01/12/2024 8:30 AM CDT Pharmacist Admission Medication History Admission medication history is complete. The information provided in this note is only as accurateas the sources available at the time of the update. Information Source(s): Patient via in-person Pertinent Information: Changes made to AMUSEMENT EQUIPMENT OPERATOR medication list: Added: alvesco inh Deleted: None Changed: prednisone, chlorpheniramine Allergies reviewed with patient and updates made in EHR: yes Medication History Completed By: Bruna Bacon [facility] 01/12/2024 8:30 AM AMUSEMENT EQUIPMENT OPERATOR Med List Medication Sig Last Dose albuterol (PROAIR HFA, PROVENTIL HFA, VENTOLIN HFA) 108 (90 BASE) MCG/ACT inhaler Inhale 2 puffs into the lungs 2 times daily. Take before alvesco 01/11/2024 at pm calcium carbonate (TUMS) 500 MG chewable tablet Take 500 mg by mouth as needed for heartburn calcium-vitamin D (CALTRATE) 600-400 MG-UNIT per tablet Take 1 tablet by mouth daily 01/11/2024 at am chlorpheniramine (CHLOR-TRIMETON) 4 MG tablet Take 2 mg by mouth as needed. ciclesonide (ALVESCO) 160 MCG/ACT inhaler Inhale 2 puffs into the lungs 2 times daily. Take after albuterol 01/11/2024 at pm cloNIDine (CATAPRES) 0.1 MG tablet Take 0.05 mg by mouth 2 times daily Pt takes 1/2 tablet (0.05 mg) BID (AM & PM) and an additional 1/2 tablet (0.05 mg) PRN 01/11/2024 at pm clopidogrel (PLAVIX) 75 MG tablet Take 75 mg by mouth daily. 01/11/2024 at am ezetimibe (ZETIA) 10 MG tablet Take 1 tablet by mouth daily 01/11/2024 at am lactase (LACTAID) 3000 UNIT tablet Take 3,000 Units by mouth as needed for indigestion. levothyroxine (SYNTHROID/LEVOTHROID) 25 MCG tablet Take 25 mcg by mouth every morning 01/11/2024 at am LORazepam (ATIVAN) 0.5 MG tablet Take 0.5 mg by mouth as needed losartan (COZAAR) 25 MG tablet Take 25 mg by mouth 2 times daily 01/11/2024 at pm metoprolol succinate ER (TOPROL XL) 25 MG 24 hr tablet Take 25 mg by mouth daily 01/11/2024 at am multivitamin, therapeutic with minerals (MULTI-VITAMIN) TABS Take 1 tablet by mouth daily 4at am nitroGLYcerin (NITROSTAT) 0.[address] 0.4 mg under the tongue every 5 minutes asneeded omeprazole (PRILOSEC) [address] capsule Take 40 mg by mouth 2 times daily 01/11/2024 at pm polyethylene glycol-propylene glycol (SYSTANE) 0.4-0.3 % SOLN ophthalmic solution Place 1 drop intoboth eyes 4 times daily as needed for dry eyes. 01/11/2024 at pm predniSONE (DELTASONE) 5 MG tablet Take 5 mg by mouth every morning 01/11/2024 at am sertraline (ZOLOFT) 50 MG tablet Take 50 mg by mouth every evening 01/11/2024 at pm sodium chloride (OCEAN) 0.65 % nasal spray [place] 1 spray in nostril daily as needed for congestion. documented in this encounter Plan of Treatment Upcoming Encounters Date Type Department Care Team (Late st Contact Info) Description 01/23/2024 1:15 PM CDT Office Visit [facility] [address] [place] [address] Meenu Denis, [address] [facility] [address] [place] [address] Scheduled Orders Name Type Priority Associated Diagnoses Orde r Schedule Basic metabolic panel Lab STAT AM Draw for 1 Occurrences starting 01/13/2024 until 01/13/2024 CBC with platelets Lab STAT AM Maegan w for 1 Occurrences starting 01/13/2024 until 01/13/2024 documented as of this encounter Procedures The patient is currently admitted. The information in this section might not be complete until the patient is discharged. Procedure Name Priority Date/Time Associated Diagnosis Comments GLUCOSE BY METER Routine 01/12/2024 5:41 PM CDT ECHO COMPLETE Routine 01/12/2024 1:38 PM CDT COVID-19 VIRUS (CORONAVIRUS) BY PCR STAT 01/12/2024 5:40 AM CDT TROPONIN T, HIGH SENSITIVITY STAT 01/12/2024 5:26 AM CDT PROCALCITONIN Add-On 01/12/2024 5:26 AM CDT TSH WITH FREE T4 REFLEX Add-On 01/12/2024 5:[address] CHEST PULMONARY EMBOLISM W CONTRAST STAT 01/12/2024 5:02 AM CDT EXTRA TUBE STAT 01/12/2024 3:39 AM CDT EXTRA RED TOP TUBE STAT 01/12/2024 3: 39 AM CDT EXTRA BLUE TOP TUBE STAT 01/12/2024 3 :39 AM CDT CBC WITH PLATELETS AND DIFFERENTIAL STAT 01/12/2024 3:39 AM CDT TROPONIN T, HIGH SENSITIVITY STAT 01/12/2024 3:39 AM CDT CBC WITH PLATELETS & DIFFERENTIAL STAT 01/12/2024 3:39 AM CDT BASIC METABOLIC PANEL STAT 01/12/2024 3:39 AM CDT EKG 12-LEAD, TRACING ONLY STAT 01/12/2024 3:35 AM CDT documented in this encounter Results * (ABNORMAL) Glucose by meter (01/12/2024 5:41 PM CDT) [facility] GLUCOSE BY METER POCT 285(H) 70 - 99 mg/dL 01/12/2024 5:50 PM CDT [facility] LABORATORY POC Blood, Capillary BLOOD SPECIMEN / Unknown 01/12/2024 5:41 PM CDT 01/12/2024 5:50 PM CDT Aletha Ca MD LAB - [facility] POCT [facility] LABORATORY POC [facility] Acute [facility] Lab [address] [facility] Lab (1st floor, no room number) [place] [address], [facility] * ECHO COMPLETE (01/12/2024 1:38 PM CDT) [facility] LVEF 60-65% CARDIOLOGY RESULTS Anatomical Region Laterality Modality Echocardiography 01/12/2024 12:5 4 PM CDT Narrative 01/12/2024 3:51 PM CDT [id number]^PREETHI^JENISE^GIOVANY [facility] Echocardiography Laboratory [address] [facility] [place] [address] Name: FAWAD UNGER : 1935 Study Date: 01/12/2024 12:54 PM Age: 88 yrs Gender: Female Patient Location: [facility] [[email or web address] Reason For Study: CAD Ordering Physician: JENISE [...] Procedure Note Yaakov Bhandari MD - 01/12/2024 [id number]^PREETHI^JENISE^GIOVANY [facility] Echocardiography Laboratory [address] [place] [address] Name: FAWAD UNGER : 1935 Study Date: 01/12/2024 12:54 PM Age: 88 yrs Gender: Female Patient Location: [facility] [[email or web address]] Reason For Study: CAD Ordering Physician: JENISE [...] by PCR Nasopharyngeal (01/12/2024 5:40 AM CDT) [facility] SARS CoV2 PCR Negative Negative 01/12/2024 6:34 AM CDT LABORATORY Comment:NEGATIVE: SARS-CoV-2 (COVID-19) RNA not detected, presumed negative. Swab NASOPHARYNGEAL STRUCTURE / Unknown Non-blood Collection / Unknown 01/12/2024 5:40 AM CDT 01/12/2024 5:50 AM CDT [facility] LABORATORY - 01/12/2024 6:34 AM CDT Testing was performed using the Xpert Xpress SARS-CoV-2 Assay on the [employer]. Additional information about this Emergency [...] COVID-19. This test was validated by the [facility]. This laboratory is certified under the Clinical Laboratory Improvement Amendments (CLIA) as qualified to perform high complexity laboratory testing. Adan Irene MD LAB - MICRO GENERAL ORDERABLES [facility] Lab [address] Lab (1st floor, no room number) [address] * TSH with free T4 reflex (01/12/2024 5:26 AM CDT) Pathologist [facility] TSH 2.47 0.30 - 4.20 uIU/mL 01/12/2024 10:06 AM CDT LABORATORY Blood BLOOD SPECIMEN / Unknown Venipuncture / Unknown 01/12/2024 5:26 AM CDT 01/12/2024 5:31 AM CDT Jenise Oro MD LAB - BLOOD ORDER AMELIA Performing Organization Address City/[facility]/ZIP Co de Phone Number [facility] Lab [address] Lab (1st floor, no room number) [address] [place] [address] * Procalcitonin (01/12/2024 5:26 AM CDT) Procalcitonin [...] See Procalcitonin Guidance document for more details. [email or web address] Factors that may affect PCT levels (not [...] MD LAB - BLOOD ORDERABL ES LABORATORY [facility] Lab [address] [facility] Lab (1st floor, no room number) [place] [address] * (ABNORMAL) Troponin T, High Sensitivity (now) (01/12/2024 5:26 AM CDT) [facility] Troponin T, High Sensitivity 18(H) <=14 ng/L [...] Irene MD LAB - BLOOD ORDERABL ES [facility] Acute Care Lab [address] [facility] Lab (1st floor, no room number) [place] [address] * CT Chest Pulmonary Embolism w Contrast [...] CT CHEST PULMONARY EMBOLISM W CONTRAST LOCATION: [facility] DATE: 01/12/2024 INDICATION: left anterior chest pain, [...] endplate L1. Procedure Note Sharon Madrigal MD, MD - 01/12/2024 EXAM: CT CHEST PULMONARY EMBOLISM W CONTRAST LOCATION: [facility] DATE: 01/12/2024 INDICATION: left anterior chest pain, [...] left thyroid nodule. 5. Cholelithiasis. REFERENCE: Javid RENAE et al. Managing Incidental [...] Evaluate with thyroid ultrasound. Adan Irene MD [facility] CT ORDERABLES * Extra Red Top Tube (01/12/2024 3:39 AM CDT) [facility] Hold Specimen [facility] 01/12/2024 4:46 AM CDT LABORATORY Blood BLOOD SPECIMEN / Unknown Venipuncture / Unknown 01/12/2024 3:39 AM CDT 01/12/2024 3:42 AM CDT Adan Irene MD LAB - BLOOD ORDERABL ES [facility] Lab [address] Lab (1st floor, no room number) [place] [address] * Extra Blue Top Tube (01/12/2024 3:39 AM CDT) Hold Specimen [facility] 01/12/2024 4:46 AM CDT [facility] LABORATORY Blood BLOOD SPECIMEN / Unknown Venipuncture / Unknown 01/12/2024 3:39 AM CDT 01/12/2024 3:42 AM CDT Adan Irene MD LAB - BLOOD ORDERABL ES Performing Organization Address City/[facility]/ZIP Co de Phone Number [facility] Lab [address] Lab (1st floor, no room number) [place] [address] * (ABNORMAL) CBC with platelets and differential [...] LAB - BLOOD ORDERABL ES [facility] LABORATORY [facility] Lab [address] Lab (1st floor, no room number) [place] [address] * (ABNORMAL) Troponin T, High Sensitivity (01/12/2024 3:39 AM CDT) [facility] Troponin T, High Sensitivity 18(H) <=14 ng/L 01/12/2024 4:01 AM CDT LABORATORY Comment: Either a High [...] MD LAB - BLOOD ORDERABL ES LABORATORY [facility] [address] Lab (1st floor, no room number) [place] [address] * (ABNORMAL) Basic metabolic panel (01/12/2024 3:39 AM CDT) Pathologist [facility] Sodium 134(L) 135 - 145 mmol/L 01/12/2024 [...] >60 mL/min/1.7 3m2 01/12/2024 4:01 AM CDT [facility] LABORATORY Comment:eGFR calculated usin 2020 CKD-EPI equation. Calcium 8.9 8.8 - 10.4 mg/dL 01/12/2024 4:01 AM CDT [facility] LABORATORY Comment:Reference intervals for this test [...] MD LAB - BLOOD ORDERABL ES LABORATORY [facility] Lab [address] [facility] Lab (1st floor, no room number) [place] [address], [facility] * EKG 12 lead (01/12/2024 3:35 AM CDT) Systolic Blood Pressure mmHg RADIOLOGY RESULTS Diastolic Blood Pressure mmHg RADIOLOGY RESULTS Ventricular Rate 68 BPM RAD IOLOGY RESULTS Atrial Rate 68 BPM RADIOLOG Y RESULTS MI Interval 172 ms RADIOLOG Y RESULTS QRS Duration 76 ms RADIOLO GY RESULTS QT 388 ms RADIOLOGY RESULTS QTc 412 ms RADIOLOGY RESULTS P [place] 50 degrees RADIOLOGY RESULTS R AXIS -34 degrees RADIOLOGY RESULTS T [place] 13 degrees RADIOLOGY RESULTS Interpretation ECG Sinus rhythm Left axis deviation Anterior infarct , age undetermined Abnormal ECG No previous ECGs available Unconfirmed report - interpretation of this ECG is computer generated - see medical record for final interpretation Confirmed by - EMERGENCY ROOM, PHYSICIAN ([id number]), purchase request editor GONZALEZ GAVIRIA ([id number]) on 01/12/2024 6:48:00 AM RADIOLOGY RESULTS 01/12/2024 3:35 AM CDT 01/12/2024 6:48 AM CDT Adan Irene MD ECG ORDERABLES RADIOLOGY RESULTS documented in this encounter Visit Diagnoses Diagnosis Chest pain, unspecified type Hypoxemia Pneumonia due to infectious organism, unspecified laterality, unspecified part of lung Hypertensive urgency Unspecified essential hypertension Hypoxemia Hypertensive urgency Unspecified essential hypertension Chest pain, unspecified type Pneumonia due to infectious organism, unspecified laterality, unspecified part of lung documented in this encounter Administered Medications Active Administered Medications - up to 3 most recent administrations Medication Order MAR Action Action Date Dose Rate Site acetaminophen (TYLENOL) Suppository 650 mg 650 mg, Rectal, EVERY 4 HOURS PRN, mild pain, other, and adjunct with moderate or severe pain or per patient request, Starting on Paulina 01/12/24 at 0651, Alternate with ibuprofen if ordered. Maximum acetaminophen dose from all sources = 75 mg/kg/day not to exceed 4 grams/day. acetaminophen (TYLENOL) tablet 650 mg 650 mg, Oral, EVERY 4 HOURS PRN, mild pain, other, and adjunct with moderate or severe pain or per patient request, Starting on Paulina 01/12/24 at 0651, Alternate with ibuprofen if ordered. Maximum acetaminophen dose from all sources = 75 mg/kg/day not to exceed 4 grams/day. $Given 01/12/2024 8:00 AM CDT 650 mg albuterol (PROVENTIL HFA/VENTOLIN HFA) inhaler 2 puff, Inhalation, 2 TIMES DAILY, First dose on Paulina 01/12/24 at 0840, Check the dose counter on the inhaler to ensure there are doses remaining before administering. Prime by spraying into the air 4 times prior to first use and if not used within 2 weeks. $Given 01/12/2024 4:53 PM CDT 2 puffs $Given 01/12/2024 10:20 AM CDT 2 puffs azithromycin (ZITHROMAX) 500 mg in NS 250 mL intermittent infusion STAT, 500 mg, Intravenous, EVERY 24 HOURS, First dose on Paulina 01/12/24 at 0525, Indications: Community Acquired Pneumonia $New Bag 01/12/2024 6:07 AM CDT 500 mg ciclesonide (ALVESCO) 160 MCG/ACT inhaler 2 puff 2 puff, Inhalation, 2 TIMES DAILY, First dose (after last reorder) on [facility] 01/12/24 at 2100, Use home supply *Do not use more frequently than twice daily.* Rinse mouth after use. Check the dose counter on the inhaler to ensure there are doses remaining before administering. Prime by spraying into the air 3 times prior to first use and if not used within 10 days. cloNIDine (CATAPRES) half-tab 0.05 mg 0.05 mg, Oral, 2 TIMES DAILY, First dose on [facility] 01/12/24 at 0845 $Given 01/12/2024 7:47 PM CDT 0.05 mg $Given 01/12/2024 2:12 PM CDT 0.05 mg clopidogrel (PLAVIX) tablet 75 mg 75 mg, Oral, DAILY, First dose on [facility] 01/12/24 at 0840 $Given 01/12/2024 9:44 AM CDT 75 mg ezetimibe (ZETIA) tablet 10 mg 10 mg, Oral, DAILY, First dose on [facility] 01/12/24 at 0840 $Given 01/12/2024 11:44 AM CDT 10 mg hydrALAZINE (APRESOLINE) injection 10 mg 10 mg, Intravenous, EVERY 4 HOURS PRN, high blood pressure, give for SBP > 180, Starting on [facility] 01/12/24 at 1409 $Given 01/12/2024 2:41 PM CDT 10 mg lactase (LACTAID) tablet 3,000 Units 3,000 Units, Oral, 3 TIMES DAILY WITH MEALS, First dose on [facility] 01/12/24 at 0840 $Given 01/12/2024 10:18 AM CDT 3,000 Units levothyroxine (SYNTHROID/LEVOTHROID) tablet 25 mcg 25 mcg, Oral, EVERY MORNING, First dose on Paulina 01/12/24 at 0845, Separate oral administration of iron- or calcium-containing products and levothyroxine by at least 4 hours. $Given 01/12/2024 9:45 AM CDT 25 mcg LORazepam (ATIVAN) half-tab 0.25 mg 0.25 mg, Oral, EVERY 4 HOURS PRN, anxiety, Starting on [place]ina 01/12/24 at 0651, MR x 1 $Given 01/12/2024 12:07 PM CDT 0.25 mg losartan (COZAAR) tablet 25 mg 25 mg, Oral, 2 TIMES DAILY, First dose on Tue01/12/24 at 0845 $Given 01/12/2024 6:00 PM CDT 25 mg $Given 01/12/2024 9:44 AM CDT 25 mg metoprolol succinate ER (TOPROL XL) 24 hr tablet 25 mg 25 mg, Oral, DAILY, First dose on Tue01/12/24 at 1200, DO NOT CRUSH. Tablet may be split in half along score line. $Given 01/12/2024 11:44 AM CDT 25 mg ondansetron (ZOFRAN ODT) ODT tab 4 mg 4 mg, Oral, EVERY 6 HOURS PRN, nausea, vomiting, Starting on Tue01/12/24 at 0651, This is Step 1 of nausea and vomiting management. If nausea not resolved in 15 minutes, go to Step 2 prochlorperazine (COMPAZINE). With dry hands, peel back foil backing and gently remove tablet. Do not push oral disintegrating tablet through foil backing. Administer immediately on tongue and oral disintegrating tablet dissolves in seconds, then swallow with saliva. Liquid not required. ondansetron (ZOFRAN) injection 4 mg 4 mg, Intravenous, EVERY 6 HOURS PRN, nausea, vomiting, Administer over 2-5 Minutes, Starting on Paulina 01/12/24 at 0651, Give IF patient unable to tolerate oral medication. This is Step 1 of nausea and vomiting management. If nausea not resolved in 15 minutes, go to Step 2 prochlorperazine (COMPAZINE). $Given 01/12/2024 8:25 PM CDT 4 mg pantoprazole (PROTONIX) EC tablet 40 mg 40 mg, Oral, 2 TIMES DAILY, First dose on Tue01/12/24 at 0840 $Given 01/12/2024 6:07 PM CDT 40 mg $Given 01/12/2024 9:43 AM CDT 40 mg polyethylene glycol (MIRALAX) Packet 17 g 17 g, Oral, DAILY, First dose on Tue01/12/24 at 0800, 1 Packet = 17 grams. Mix each gram with at least 1/2 ounce (15 mL) of water - 8 ounces for 17 g dose, 4 ounces for 8.5 g dose, 2 ounces for 4 g dose. Follow with the same volume of water. Hold for loose stools unless being administered as part of a bowel prep regimen or bowel clean out. $Given 01/12/2024 8:02 AM CDT 17 g senna-docusate (SENOKOT-S/PERICOLACE) 8.6-50 MG per tablet 1 tablet 1 tablet, Oral, 2 TIMES DAILY PRN, constipation, Starting on Paulina 01/12/24 at 0651, If no bowel movement in 24 hours, increase to 2 tablets by mouth. IF more than 1 constipation PRN medication is ordered, administer step-lira as indicated, moving to the next step ONLY if prior step ineffective. Step 1: senna-docusate (SENOKOT-S; PERICOLACE) OR bisacodyl (DULCOLAX) EC tablet Step 2: polyethylene glycol (MIRALAX/GLYCOLAX) Step 3: bisacodyl (DULCOLAX) suppository Step 4: enema Hold for loose stools. senna-docusate (SENOKOT-S/PERICOLACE) 8.6-50 MG per tablet 2 tablet 2 tablet, Oral, 2 TIMES DAILY PRN, constipation, Starting on Paulina 01/12/24 at 0651, IF more than 1 constipation PRN medication is ordered, administer step-lira as indicated, moving to the next step ONLY if prior step ineffective. Step 1: senna-docusate (SENOKOT-S; PERICOLACE) OR bisacodyl (DULCOLAX) EC tablet Step 2: polyethylene glycol (MIRALAX/GLYCOLAX) Step 3: bisacodyl (DULCOLAX) suppository Step 4: enema Hold for loose stools. sertraline (ZOLOFT) tablet 50 mg 50 mg, Oral, EVERY EVENING, First dose on Paulina 01/12/24 at 2000 $Given 01/12/2024 7:47 PM CDT 50 mg Inactive Administered Medications - up to 3 most recent administrations Medication Order MAR Action Action Date Dose Rate Site acetaminophen (TYLENOL) tablet 1,000 mg 1,000 mg, Oral, ONCE, On Paulina 01/12/24 at 0355, For 1 dose, Maximum acetaminophen dose from all sources = 75 mg/kg/day not to exceed 4 gram $Given 01/12/2024 3:53 AM CDT 1,000 mg cefTRIAXone (ROCEPHIN) 2 g vial to attach to NS 100 ml bag for ADULTS or NS 50 ml bag for PEDS STAT, 2 g, Intravenous, ONCE, On Paulina 01/12/24 at 0525, For 1 dose, Indications: Community Acquired Pneumonia $New Bag 01/12/2024 5:44 AM CDT [address] scan flush Intravenous, 100 mL, ONCE, On Paulina 01/12/24 at 0440, For 1 dose, This entry is for use by Radiology to intermittently used as a flush in patients receiving a CT scan. $Given 01/12/2024 4:45 AM CDT 72 mLs hydrALAZINE (APRESOLINE) injection 10 mg 10 mg, Intravenous, ONCE, Administer over 1 Minutes, On Paulina 01/12/24 at 0600, For 1 dose $Given 01/12/2024 6:19 AM CDT 10 mg iopamidol (ISOVUE-370) solution 500 mL 500 mL, Intravenous, ONCE, On Paulina 01/12/24 at 0440, For 1 dose $Given 01/12/2024 4:45 AM CDT 51 mLs methylPREDNISolone sodium succinate (SOLU-MEDROL) injection 20 mg 20 mg, Intravenous, Administer over 2 Minutes, ONCE, On Paulina 01/12/24 at 0655, For 1 dose $Given 01/12/2024 8:03 AM CDT 20 mg documented in this encounter Active and Recently Administered Medications Times are shown in CDT. Scheduled Medication Order 01/11/2024 01/12/2024 01/13/2024 acetaminophen (TYLENOL) tablet 1,000 mg (CANCELED) 1,000 mg, Oral, ONCE, On Paulina 01/12/24 at 0355, For 1 dose, Maximum acetaminophen dose from all sources = 75 mg/kg/day not to exceed 4 gram 0353 ($Given - Provider: Nargis Santana RN) albuterol (PROVENTIL HFA/VENTOLIN HFA) inhaler 2 puff, Inhalation, 2 TIMES DAILY, First dose on Tue01/12/24 at 0840, Check the dose counter on the inhaler to ensure there are doses remaining before administering. Prime by spraying into the air 4 times prior to first use and if not used within 2 weeks. 1020 ($Given - Provider: Isabel Nolan RN)1653 ($Given - Provider: Ailin Garrido, HEENA)1999 (Not Given - Provider: Ailin Garrido RN - Reason: Order parameters not met) 0800 (Due)1999 (Due) azithromycin (ZITHROMAX) 500 mg in NS 250 mL intermittent infusion STAT, 500 mg, Intravenous, EVERY 24 HOURS, First dose on Tue01/12/24 at 0525, Indications: Community Acquired Pneumonia 0607 ($New Bag - Provider: Nargis Santana RN)0614 (Stopped - Provider: Nargis Santana RN - Comment: pt became very nauseous upon initiation of gtt. gtt stopped and MD notified) 0525 (Due) cefTRIAXone (ROCEPHIN) 1 g vial to attach to NS 100 mL bag for ADULTS or NS 50 mL bag for PEDS STAT, 1 g, Intravenous, EVERY 24 HOURS, First dose on Tue01/13/24 at 0500, Indications: Community Acquired Pneumonia 0500 (Due) cefTRIAXone (ROCEPHIN) 2 g vial to attach to NS 100 ml bag for ADULTS or NS 50 ml bag for PEDS (COMPLETED) STAT, 2 g, Intravenous, ONCE, On Tue01/12/24 at 0525, For 1 dose, Indications: Community Acquired Pneumonia 0544 ($New Bag - Provider: Nargis Santana RN)0607 (Stopped - Provider: Nargis Santana RN) ciclesonide (ALVESCO) 160 MCG/ACT inhaler 2 puff 2 puff, Inhalation, 2 TIMES DAILY, First dose (after last reorder) on Tue01/12/24 at 2100, Use home supply *Do not use more frequently than twice daily.* Rinse mouth after use. Check the dose counter on the inhaler to ensure there are doses remaining before administering. Prime by spraying into the air 3 times prior to first use and if not used within 10 days. 2238 (Not Given - Provider: Ailin Garrido RN - Reason: Patient/family refused - Comment: Wait til AM dose) 0800 (Due)1999 (Due) cloNIDine (CATAPRES) half-tab 0.05 mg 0.05 mg, Oral, 2 TIMES DAILY, First dose on Paulina 01/12/24 at 0845 1016 (Not Given - Provider: Isabel Nolan RN - Reason: Patient/family refused)1412 ($Given - Provider: Chuyita Ramirez, HEENA)1947 ($Given - Provider: Ailin Garrido, HEENA) 0800 (Due)1999 (Due) clopidogrel (PLAVIX) tablet 75 mg 75 mg, Oral, DAILY, First dose on Paulina 01/12/24 at 0840 0944 ($Given - Provider: Isabel Nolan RN) 0800 (Due) CT scan flush (CANCELED) Intravenous, 100 mL, ONCE, On Paulina 01/12/24 at 0440, For 1 dose, This entry is for use by Radiology to intermittently used as a flush in patients receiving a CT scan. 0445 ($Given - Provider: Staci Dalal) ezetimibe (ZETIA) tablet 10 mg 10 mg, Oral, DAILY, First dose on Paulina 01/12/24 at 0840 1144 ($Given - Provider: Chuyita Ramirez RN) 0800 (Due) hydrALAZINE (APRESOLINE) injection 10 mg (COMPLETED) 10 mg, Intravenous, ONCE, Administer over 1 Minutes, On Paulina 01/12/24 at 0600, For 1 dose 0619 ($Given - Provider: Nargis Santana RN) iopamidol (ISOVUE-370) solution 500 mL (CANCELED) 500 mL, Intravenous, ONCE, On Paulina 01/12/24 at 0440, For 1 dose 0445 ($Given - Provider: Staci Dalal) lactase (LACTAID) tablet 3,000 Units 3,000 Units, Oral, 3 TIMES DAILY WITH MEALS, First dose on Paulnia 01/12/24 at 0840 1018 ($Given - Provider: Isabel Nolan RN)1140 (Not Given - Provider: Chuyita Ramirez RN - Reason: Patient/family refused)1800 (Not Given - Provider: Ailin Garrido RN - Reason: Patient/family refused) 0800 (Due)1200 (Due)1800 (Due) levothyroxine (SYNTHROID/LEVOTHROID) tablet 25 mcg 25 mcg, Oral, EVERY MORNING, First dose on Paulina 01/12/24 at 0845, Separate oral administration of iron- or calcium-containing products and levothyroxine by at least 4 hours. 0945 ($Given - Provider: Isabel Nolan RN) 0800 (Due) losartan (COZAAR) tablet 25 mg 25 mg, Oral, 2 TIMES DAILY, First dose on Paulina 01/12/24 at 0845 0944 ($Given - Provider: Isabel Nolan RN)1800 ($Given - Provider: Ailin Garrido RN - Comment: bp; 179/83)1999 (Not Given - Provider: Ailin Garrido RN - Reason: Patient/family refused) 0800 (Due)1999 (Due) methylPREDNISolone sodium succinate (SOLU-MEDROL) injection 20 mg (COMPLETED) 20 mg, Intravenous, Administer over 2 Minutes, ONCE, On Paulina 01/12/24 at 0655, For 1 dose 0803 ($Given - Provider: Isabel Nolan RN) metoprolol succinate ER (TOPROL XL) 24 hr tablet 25 mg 25 mg, Oral, DAILY, First dose on Paulina 01/12/24 at 1200, DO NOT CRUSH. Tablet may be split in half along score line. 1144 ($Given - Provider: Chuyita Ramirez RN) 1200 (Due) pantoprazole (PROTONIX) EC tablet 40 mg 40 mg, Oral, 2 TIMES DAILY, First dose on Paulina 01/12/24 at 0840 0943 ($Given - Provider: Isabel Nolan RN)1807 ($Given - Provider: Ailin Garrido RN)1999 (Not Given - Provider: Ailin Garrido RN - Reason: Patient/family refused) 0800 (Due)1999 (Due) polyethylene glycol (MIRALAX) Packet 17 g 17 g, Oral, DAILY, First dose on Paulina 01/12/24 at 0800, 1 Packet = 17 grams. Mix each gram with at least 1/2 ounce (15 mL) of water - 8 ounces for 17 g dose, 4 ounces for 8.5 g dose, 2 ounces for 4 g dose. Follow with the same volume of water. Hold for loose stools unless being administered as part of a bowel prep regimen or bowel clean out. 0802 ($Given - Provider: Isabel Nolan RN) 0800 (Due) predniSONE (DELTASONE) tablet 5 mg 5 mg, Oral, EVERY MORNING, First dose on Tue01/13/24 at 0800 0800 (Due) sertraline (ZOLOFT) tablet 50 mg 50 mg, Oral, EVERY EVENING, First dose on Tue01/12/24 at 1999 1947 ($Given - Provider: Ailin Garrido RN) 1999 (Due) PRN Medication Order 01/11/2024 01/12/2024 01/13/2024 acetaminophen (TYLENOL) Suppository 650 mg(Linked Group 1) 650 mg, Rectal, EVERY 4 HOURS PRN, mild pain, other, and adjunct with moderate or severe pain or per patient request, Starting on Tue01/12/24 at 0651, Alternate with ibuprofen if ordered. Maximum acetaminophen dose from all sources = 75 mg/kg/day not to exceed 4 grams/day. 0800 (See Alternative - Provider: Isabel Nolan RN) acetaminophen (TYLENOL) tablet 650 mg(Linked Group 1) 650 mg, Oral, EVERY 4 HOURS PRN, mild pain, other, and adjunct with moderate or severe pain or per patient request, Starting on Tue01/12/24 at 0651, Alternate with ibuprofen if ordered. Maximum acetaminophen dose from all sources = 75 mg/kg/day not to exceed 4 grams/day. 0800 ($Given - Provider: Isabel Nolan RN) artificial tears (GENTEAL) 0.1-0.2-0.3 % ophthalmic solution 1 drop 1 drop, Both Eyes, 4 TIMES DAILY PRN, dry eyes, Starting on Tue01/12/24 at 0837 calcium carbonate (TUMS) chewable tablet 1,000 mg 1,000 mg, Oral, 3 TIMES DAILY PRN, heartburn, Starting on Tue01/12/24 at 2141, May substitute with patient's own supply 1177 mg tabs hydrALAZINE (APRESOLINE) injection 10 mg 10 mg, Intravenous, EVERY 4 HOURS PRN, high blood pressure, give for SBP > 180, Starting on Tue01/12/24 at 1409 1441 ($Given - Provider: Chuyita Ramirez RN) LORazepam (ATIVAN) half-tab 0.25 mg 0.25 mg, Oral, EVERY 4 HOURS PRN, anxiety, Starting on Paulina 01/12/24 at 0651, MR x 1 1207 ($Given - Provider: Chuyita Ramirez, HEENA) ondansetron (ZOFRAN ODT) ODT tab 4 mg(Linked Group 2) 4 mg, Oral, EVERY 6 HOURS PRN, nausea, vomiting, Starting on Paulina 01/12/24 at 0651, This is Step 1 of nausea and vomiting management. If nausea not resolved in 15 minutes, go to Step 2 prochlorperazine (COMPAZINE). With dry hands, peel back foil backing and gently remove tablet. Do not push oral disintegrating tablet through foil backing. Administer immediately on tongue and oral disintegrating tablet dissolves in seconds, then swallow with saliva. Liquid not required. 2024 (See Alternative - Provider: Ailin Garrido RN) ondansetron (ZOFRAN) injection 4 mg(Linked Group 2) 4 mg, Intravenous, EVERY 6 HOURS PRN, nausea, vomiting, Administer over 2-5 Minutes, Starting on Paulina 01/12/24 at 0651, Give IF patient unable to tolerate oral medication. This is Step 1 of nausea and vomiting management. If nausea not resolved in 15 minutes, go to Step 2 prochlorperazine (COMPAZINE). 2024 ($Given - Provider: Ailin Garrido RN) senna-docusate (SENOKOT-S/PERICOLACE) 8.6-50 MG per tablet 1 tablet(Linked Group 3) 1 tablet, Oral, 2 TIMES DAILY PRN, constipation, Starting on Paulina 01/12/24 at 0651, If no bowel movement in 24 hours, increase to 2 tablets by mouth. IF more than 1 constipation PRN medication is ordered, administer step-lira as indicated, moving to the next step ONLY if prior step ineffective. Step 1: senna-docusate (SENOKOT-S; PERICOLACE) OR bisacodyl (DULCOLAX) EC tablet Step 2: polyethylene glycol (MIRALAX/GLYCOLAX) Step 3: bisacodyl (DULCOLAX) suppository Step 4: enema Hold for loose stools. senna-docusate (SENOKOT-S/PERICOLACE) 8.6-50 MG per tablet 2 tablet(Linked Group 3) 2 tablet, Oral, 2 TIMES DAILY PRN, constipation, Starting on Paulina 01/12/24 at 0651, IF more than 1 constipation PRN medication is ordered, administer step-lira as indicated, moving to the next step ONLY if prior step ineffective. Step 1: senna-docusate (SENOKOT-S; PERICOLACE) OR bisacodyl (DULCOLAX) EC tablet Step 2: polyethylene glycol (MIRALAX/GLYCOLAX) Step 3: bisacodyl (DULCOLAX) suppository Step 4: enema Hold for loose stools. simethicone (MYLICON) chewable tablet 160 mg 160 mg, Oral, 4 TIMES DAILY PRN, cramping, Starting on Paulina 01/12/24 at 2140, May substitute with patient's own supply- 125 mg chewable tablet sodium chloride (OCEAN) 0.65 % nasal spray 1 spray 1 spray, Nasal, DAILY PRN, congestion, Starting on Paulina 01/12/24 at 0837 Linked Groups Order Group 1: acetaminophen (TYLENOL) tablet 650 mgJump to med 650 mg, Oral, EVERY 4 HOURS PRN, mild pain, other, and adjunct with moderate or severe pain or per patient request, Starting on Paulina 01/12/24 at 0651, Alternate with ibuprofen if ordered. Maximum acetaminophen dose from all sources = 75 mg/kg/day not to exceed 4 grams/day. Or acetaminophen (TYLENOL) Suppository 650 mgJump to med 650 mg, Rectal, EVERY 4 HOURS PRN, mild pain, other, and adjunct with moderate or severe pain or per patient request, Starting on Paulina 01/12/24 at 0651, Alternate with ibuprofen if ordered. Maximum acetaminophen dose from all sources = 75 mg/kg/day not to exceed 4 grams/day. Group 2: ondansetron (ZOFRAN ODT) ODT tab 4 mgJump to med 4 mg, Oral, EVERY 6 HOURS PRN, nausea, vomiting, Starting on Paulina 01/12/24 at 0651, This is Step 1 of nausea and vomiting management. If nausea not resolved in 15 minutes, go to Step 2 prochlorperazine (COMPAZINE). With dry hands, peel back foil backing and gently remove tablet. Do not push oral disintegrating tablet through foil backing. Administer immediately on tongue and oral disintegrating tablet dissolves in seconds, then swallow with saliva. Liquid not required. Or ondansetron (ZOFRAN) injection 4 mgJump to med 4 mg, Intravenous, EVERY 6 HOURS PRN, nausea, vomiting, Administer over 2-5 Minutes, Starting on Paulina 01/12/24 at 0651, Give IF patient unable to tolerate oral medication. This is Step 1 of nausea and vomiting management. If nausea not resolved in 15 minutes, go to Step 2 prochlorperazine (COMPAZINE). Group 3: senna-docusate (SENOKOT-S/PERICOLACE) 8.6-50 MG per tablet 1 tabletJump to med 1 tablet, Oral, 2 TIMES DAILY PRN, constipation, Starting on Paulina 01/12/24 at 0651, If no bowel movement in 24 hours, increase to 2 tablets by mouth. IF more than 1 constipation PRN medication is ordered, administer step-lira as indicated, moving to the next step ONLY if prior step ineffective. Step 1: senna-docusate (SENOKOT-S; PERICOLACE) OR bisacodyl (DULCOLAX) EC tablet Step 2: polyethylene glycol (MIRALAX/GLYCOLAX) Step 3: bisacodyl (DULCOLAX) suppository Step 4: enema Hold for loose stools. Or senna-docusate (SENOKOT-S/PERICOLACE) 8.6-50 MG per tablet 2 tabletJump to med 2 tablet, Oral, 2 TIMES DAILY PRN, constipation, Starting on Paulina 01/12/24 at 0651, IF more than 1 constipation PRN medication is ordered, administer step-lira as indicated, moving to the next step ONLY if prior step ineffective. Step 1: senna-docusate (SENOKOT-S; PERICOLACE) OR bisacodyl (DULCOLAX) EC tablet Step 2: polyethylene glycol (MIRALAX/GLYCOLAX) Step 3: bisacodyl (DULCOLAX) suppository Step 4: enema Hold for loose stools. documented in this encounter Care Teams Planning Advisor Relationship Specialty Start Date End Date Loren Beyer MD [facility] & [address] [address] PCP - General Family Practice 11/15/17 Teresa Chiu, RN Registered Nurse Cardiology 07/15/23 Meenu Denis DO [address] [place] [address] Assigned Heart and Vascular Provider 07/29/23 documented as of this encounter
--- OUTSIDE RECORDS SUMMARY | 2024-01-13 03:51 | XMS_ITS | Referral Summary ---
Author Organization [place] Address [address] [facility] [place] [address] Care Team Providers Care Copier Technician Name Role Phone Loren Beyer MD Primary Care Provider + Teresa Chiu RN Unavailable Unavaila ble Meenu Denis DO Unavailable [phone] Encounters Date Type Department Care Team Description 01/12/2024 Travel 01/12/2024 3:33 AM CDT - Present Hospital Encounter [facility] [address] [place] [id number] Adan Irene MD Burns, Bradley Joseph, DO Dorn, Karen T, MD Mithani, Salima Aziz, MD Chest pain, unspecified type; Hypoxemia; Pneumonia due to infectious organism, unspecified laterality, unspecified part of lung; Hypertensive urgency 12/02/2023 Telephone [facility] [address] [place] [phone] Meenu Denis DO Symptoms (Feeling in a Fog and exhausted all the time) 11/28/2023 External Order Results [facility] [address] [place] [address] Outside, Provider 11/14/2023 MyC Medical Advice [facility] [address] [place] [address] Calin De Jesus RN from Last [...] sodium chloride (OCEAN) 0.65 % nasal spray [place] 1 spray in nostril daily as needed [...] in an abandoned building, in an overnight chcf, or couch-surfing.) Yes 01/12/2024 Are you worried [...] Description 01/23/2024 1:15 PM CDT Office Visit [address] [place] [address] Meenu Denis DO [address] [place] [address] Medical Devices Implanted Type Area Research Physicist Device Identifier Shelf Expiration Date Model / Serial / Lot Glenosphere 25mm Mini Baseplate Implanted:Qty: 1 on 01/30/2013 by Jc Farr MD at [facility] Right: Shoulder 11/12/2022 [id number] / / [id number] Humeral Bearing Standard 44-36mm Implanted:Qty: 1 on 01/30/2013 by Jc Farr MD at [facility] Right: Shoulder 10/12/2017 [id number] / / [id number] Implanted:Qty: 1 on 01/30/2013 by Jc Farr MD at [facility] Right: Shoulder 10/12/2022 [id number] / / [id number] 3.5 Hex Fixed Locking Screw [id number] Implanted:Qty: 1 on 01/30/2013 by Jc Farr MD at [facility] Right: Shoulder 12/12/2022 [id number] / / [id number] Fixed Hex Locking Screw Implanted:Qty: 1 on 01/30/2013 by Jc Farr MD at [facility] Right: Shoulder 12/12/2022 [id number] / / [id number] Hex Fixed Locking Screw Implanted:Qty: 1 on 01/30/2013 by Jc Farr MD at [facility] Right: Shoulder 12/12/2022 [id number] / / [id number] Fixed Locking Screw Implanted:Qty: 1 on 01/30/2013 by Jc Farr MD at [facility] Right: Shoulder 12/12/2022 [id number] / / [id number] Glenosphere 36mm Curve/Standard Implanted:Qty: 1 on 01/30/2013 by Jc Farr MD at [facility] Right: Shoulder 12/12/2022 [id number] / / [id number] 9x83mm Shoulder Stem Implanted:Qty: 1 on 01/30/2013 by Jc Farr MD at [facility] Right: Shoulder 10/12/2022 [id number] / / [id number] Humeral Tray 44mm Standard Implanted:Qty: 1 on 01/30/2013 by Jc Farr MD at [facility] Right: Shoulder 12/12/2022 [id number] / / [id number] Procedures The patient is currently admitted. The [...] Glucose by meter (01/12/2024 5:41 PM CDT) [facility] GLUCOSE BY METER POCT 285(H) 70 - 99 mg/dL 01/12/2024 5:50 PM CDT LABORATORY POC Blood, Capillary BLOOD SPECIMEN / Unknown 01/12/2024 5:41 PM CDT 01/12/2024 5:50 PM CDT Aletha METCALF - PRASAD POCT LABORATORY [facility] Lab [address] Lab (1st floor, no room number) [place] [address], [facility] * ECHO COMPLETE (01/12/2024 1:38 PM CDT) Pathologist [facility] LVEF 60-65% CARDIOLOGY RESULTS Anatomical Region Laterality Modality Echocardiography 01/12/2024 12:5 4 PM CDT Narrative 01/12/2024 3:51 PM CDT [id number]^PREETHI^JENISE^GIOVANY [facility] Echocardiography Laboratory [address] [place] [address] Name: FAWAD UNGER : 1935 Study Date: 01/12/2024 12:54 PM Age: 88 yrs Gender: Female Patient Location: [facility] Reason For Study: CAD Ordering Physician: JENISE [...] Procedure Note Yaakov Bhandari MD - 01/12/2024 [id number]^PREETHI^JENISE^GIOVANY [facility] Echocardi[facility] Laboratory [address] [place] [id number] Name: FAWAD UNGER : 1935 Study Date: 01/12/2024 12:54 PM Age: 88 yrs Gender: Female Patient Location: [facility] Reason For Study: CAD Ordering Physician: JENISE [...] by PCR Nasopharyngeal (01/12/2024 5:40 AM CDT) [facility] SARS CoV2 PCR Negative Negative 01/12/2024 6:34 AM CDT LABORATORY Comment:NEGATIVE: SARS-CoV-2 (COVID-19) RNA not detected, presumed negative. Swab NASOPHARYNGEAL STRUCTURE / Unknown Non-blood Collection / Unknown 01/12/2024 5:40 AM CDT 01/12/2024 5:50 AM CDT [facility] LABORATORY - 01/12/2024 6:34 AM CDT Testing was performed using the Xpert Xpress SARS-CoV-2 Assay on the [employer]. Additional information about this Emergency [...] COVID-19. This test was validated by the [facility]. This laboratory is certified under the Clinical Laboratory Improvement Amendments (CLIA) as qualified to perform high complexity laboratory testing. Adan Irene MD LAB - MICRO GENERAL ORDERABLES LABORATORY [facility] Acute Care Lab [address] Lab (1st floor, no room number) [place] [address], [facility] * (ABNORMAL) Troponin T, High Sensitivity (now) (01/12/2024 5:26 AM CDT) Only the most recent of2 resultswithin the time period is included. Troponin T, High Sensitivity 18(H) <=14 ng/L [...] MD LAB - BLOOD ORDERABL ES LABORATORY [facility] Lab [address] [facility] Lab (1st floor, no room number) [place] [address], [facility] * Procalcitonin (01/12/2024 5:26 AM CDT) Procalcitonin [...] See Procalcitonin Guidance document for more details. [email or web address] Factors that may affect PCT levels (not [...] Ca MD LAB - BLOOD ORDERABL ES [facility] Acute [facility] Lab [address] [employer] Lab (1st floor, no room number) [address] * TSH with free T4 reflex (01/12/2024 5:26 AM CDT) TSH 2.47 0.30 - 4.20 uIU/mL 01/12/2024 10:06 AM CDT LABORATORY Blood BLOOD SPECIMEN / Unknown Venipuncture / Unknown 01/12/2024 5:26 AM CDT 01/12/2024 5:31 AM CDT Jenise Oro MD LAB - BLOOD ORDER AMELIA [facility] Lab [address] Lab (1st floor, no room number) [address] * CT Chest Pulmonary Embolism w [...] CT CHEST PULMONARY EMBOLISM W CONTRAST LOCATION: [facility] DATE: 01/12/2024 INDICATION: left anterior chest pain, [...] CT CHEST PULMONARY EMBOLISM W CONTRAST LOCATION: [facility] DATE: 01/12/2024 INDICATION: left anterior chest pain, [...] Evaluate with thyroid ultrasound. Adan Irene MD IM CT ORDERABLES * Extra Red Top Tube (01/12/2024 3:39 AM CDT) Pathologist [facility] Hold Specimen [facility] 01/12/2024 4:46 AM CDT RH LABORATORY Blood BLOOD SPECIMEN / Unknown Venipuncture / Unknown 01/12/2024 3:39 AM CDT 01/12/2024 3:42 AM CDT Adan Irene MD LAB - BLOOD ORDERABL ES LABORATORY [facility] Acute Care Lab [address] [employer] Lab (1st floor, no room number) [address] * Extra Blue Top Tube (01/12/2024 3:39 AM CDT) Hold Specimen JIC 01/12/2024 4:46 AM CDT RH LABORATORY Blood BLOOD SPECIMEN / Unknown Venipuncture / Unknown 01/12/2024 3:39 AM CDT 01/12/2024 3:42 AM CDT Adan Irene MD LAB - BLOOD ORDERABL ES LABORATORY [facility] Lab [address] Lab (1st floor, no room number) [address] * (ABNORMAL) CBC with platelets and differential [...] LAB - BLOOD ORDERABL ES RH LABORATORY [facility] Lab [address] Lab (1st floor, no room number) [place] [address], [facility] * (ABNORMAL) Basic metabolic panel (01/12/2024 [...] MD LAB - BLOOD ORDERABL ES LABORATORY [facility] Lab [address] [facility] Lab (1st floor, no room number) [place] [address], [facility] * EKG 12 lead (01/12/2024 3:35 AM CDT) Systolic Blood Pressure mmHg RADIOLOGY RESULTS Diastolic Blood Pressure mmHg RADIOLOGY RESULTS Ventricular Rate 68 BPM RAD IOLOGY RESULTS Atrial Rate 68 [address] Interval 172 ms RADIOLOG Y RESULTS QRS Duration 76 ms RADIOLO GY RESULTS QT 388 ms RADIOLOGY RESULTS QTc 412 ms RADIOLOGY RESULTS P [place] 50 degrees RADIOLOGY RESULTS R AXIS -34 degrees RADIOLOGY RESULTS T [place] 13 degrees RADIOLOGY RESULTS Interpretation ECG Sinus rhythm Left axis deviation Anterior infarct , age undetermined Abnormal ECG No previous ECGs available Unconfirmed report - interpretation of this ECG is computer generated - see medical record for final interpretation Confirmed by - EMERGENCY ROOM, PHYSICIAN ([id number]), film editor supervisor GONZALEZ GAVIRIA ([id number]) on 01/12/2024 6:48:00 AM RADIOLOGY RESULTS 01/12/2024 3:35 AM CDT 01/12/2024 6:48 AM CDT Adan Irene MD ECG ORDERABLES RADIOLOGY RESULTS * (ABNORMAL) CBC with Platelets & Differential (11/28/2023 9:30 AM CDT) WBC Count (External) 8.97 4.50 - 11.00 [...] Beyer MD LAB - BLOOD [place]EM [place] [facility] Organization Address City/State/ZIP Co de Phone Number CITLALY PFT NON-INTERFACED (ONBASE SCANS) * Hepatic [...] - BLOOD ORDJamie [place] Performing Organization Address City/[facility]/ZIP Co de Phone Number [place] PFT NON-INTERFACED (ONBASE SCANS) * (ABNORMAL) Hemoglobin A1c (11/28/2023 9:30 AM CDT) Hemoglobin A1C (External) 7.4(H) 0 - 5.6 % NON-INTERFACED (ONBASE SCANS) Blood BLOOD SPECIMEN / Unknown 11/28/2023 9:30 AM CDT Narrative [place] PFT - 12/23/2023 11:04 AM CDT Verified by Gini Johnson on 12/23/2023. Loren Beyer MD LAB - BLOOD ORDJamie [place] PFT NON-INTERFACED (ONBASE SCANS) * (ABNORMAL) Ferritin (11/28/2023 9:30 AM CDT) Ferritin (External) 8.5(L) 11.1 - 264.0 ng/mL NON-INTERFACED (ONBASE SCANS) Blood BLOOD SPECIMEN / Unknown 11/28/2023 9:30 AM CDT Narrative [place] PFT - 12/23/2023 11:04 AM CDT Verified by Gini Johnson on 12/23/2023. Loren Beyer MD LAB - BLOOD ORDJamie [place] Performing Organization Address [facility] Co de Phone Number BREEZE PFT NON-INTERFACED (ONBASE SCANS) * Creatinine (11/28/2023 9:30 AM CDT) Creatinine (External) 0.9 0.5 - 1.5 mg/dL NON-INTERFACED (ONBASE SCANS) Blood BLOOD SPECIMEN / Unknown 11/28/2023 9:30 AM CDT Narrative [place] PFT - 12/23/2023 11:04 AM CDT Verified by Gini Johnson on 12/23/2023. Loren Beyer MD LAB - BLOOD [place]EM [place] Performing Organization Address [facility] de Phone Number BREEZE PFT NON-INTERFACED (ONBASE SCANS) * Lab [...] - BLOOD ORDERABL ES Performing Organization Address City/[facility] Co de Phone Number B[place]ZE PFT NON-INTERFACED (ONBASE SCANS) from Last 3 Months or Most Recently Relevant to Health Maintenance Advance Directives For more information, please contact: [phone] * No CPR- Do NOT Intubate (Latest Code Status on File) Date Activated Date Inactivated Comments 01/12/2024 6:51 AM NO basic or ad vanced life-sustaining interventions are performed Question Answer Comments Code status determined by: Discussion with saige nt/ legal decision maker * DNR/DNI Date Activated Date Inactivated Comments 01/30/2013 12:12 PM 02/02/2013 12:40 PM Care Teams Copier Technician Relationship Specialty Start Date End Date Loren Beyer MD [facility] [address] [place] [address] PCP - General Family Practice 11/15/17 Teresa Chiu, RN Registered Nurse Cardiology 07/15/23 Meenu Denis DO [address] [place] [address] Assigned Heart and Vascular Provider 07/29/23
--- OUTSIDE RECORDS SUMMARY | 2024-01-13 03:51 | XMS_ITS | Encounter Summary ---
Author Organization [place] Address [address] [place] [address] Care Team Providers Care Asphalt Paving Foreman Name Role Phone Loren Beyer MD Primary Care Provider + Teresa Chiu RN Unavailable Unavaila Meenu Alves DO Unavailable [phone] Encounter Details Date Type Department Care Team (Late st Contact Info) Description 09/05/2023 External Order Results [facility] [address] [place] [address] Outside, Provider Social History Tobacco Use Types [...] Description 01/23/2024 1:15 PM CDT Office Visit [facility] [place] [address] [place] [address] Meenu Denis DO [address] [place] [address] documented as of this encounter Procedures Procedure Name Priority Date/Time Associated Diagnosis Comments CBC WITH PLATELETS & DIFFERENTIAL Routine 09/05/2023 9:45 AM CDT HEPATIC FUNCTION PANEL Routine 09/05/2023 9:45 AM CDT HEMOGLOBIN A1C Routine 09/05/2023 9:45 AM CDT FERRITIN Routine 09/05/2023 9:45 AM CDT BASIC METABOLIC PANEL Routine 09/05/2023 9:45 AM CDT documented in this encounter Results * (ABNORMAL) CBC with Platelets & Differential (09/05/2023 9:45 AM CDT) WBC Count (External) 7.86 4.50 - 11.00 K/uL NON-INTERFACE D (ONBASE SCANS) RBC Count (External) 4.42 4.00 - 5.20 m/uL NON-INTERFACE D (ONBASE SCANS) Hemoglobin (External) 10.7(L) 12.0 - 16.0 gm/dL NON-INTERFACE D (ONBASE SCANS) Hematocrit (External) 35.1 33.0 - 51.0 % NON-INTERFACE D (ONBASE SCANS) MCV (External) 79(L) 80 - 100 fL NON-INTERFACE D (ONBASE SCANS) MCH (External) 24(L) 26 - 34 pg NON- INTERFACE D (ONBASE SCANS) MCHC (External) 31(L) 32 - 36 gm/dL NON-INTERFACE D (ONBASE SCANS) Platelet Count (External) 239 140 - 440 K/uL NON-INTERFACE D (ONBASE SCANS) RDW (External) 14.8 11.5 - 15.5 % NON-INTERFACE D (ONBASE SCANS) % Neutrophils (External) 67.3 42.0 - 72.0 % NON-INTERFACE D (ONBASE SCANS) % Lymphocytes (External) 15.5(L) 20 - 44 % NON-INTERFACE D (ONBASE SCANS) % Monocytes (External) 11.6(H) 0.0 - 11.0 % NON-INTERFACE D (ONBASE SCANS) % Eosinophils (External) 4.5 0.0 - 7.0 % NON-INTERFACE D (ONBASE SCANS) % Basophils (External) 0.8 0.0 - 3.0 % NON-INTERFACE D (ONBASE SCANS) % Immature Granulocytes (External) 0.3 % NON-INTERFACE D (ONBASE SCANS) Absolute Neutrophils (External) 5.30 1.7 - 7.0 K/uL NON-INTERFACE D (ONBASE SCANS) Absolute Lymphocytes (External) 1.20 0.90 - 2.90 K/uL NON-INTERFACE D (ONBASE SCANS) Absolute Monocytes (External) 0.90 0.00 - 0.90 K/UL NON-INTERFACE D (ONBASE SCANS) Absolute Eosinophils (External) 0.35 0.00 - 0.50 K/uL NON-INTERFACE D (ONBASE SCANS) Absolute Basophils (External) 0.06 0.00 - 0.30 K/uL NON-INTERFACE D (ONBASE SCANS) Absolute Immature Granulocytes (External) 0.02 0.00 - 0.30 K/uL NON-INTERFACE D (ONBASE SCANS) Blood BLOOD SPECIMEN / Unknown 09/05/2023 9:45 AM CDT Narrative [facility] PFT - 12/23/2023 10:57 AM CDT Verified by Thu Cedeño on 12/23/2023. Loren Beyer MD LAB - BLOOD [facility] Organization Address City/State/ZIP Co de Phone Number [facility] NON-INTERFACED (ONBASE SCANS) * (ABNORMAL) Basic metabolic panel (09/05/2023 9:45 AM CDT) Sodium (External) 137 135 - 149 mmol/L NON-INTERFACED (ONBASE SCANS) Potassium (External) 3.7 3.6 - 5.1 mmol/l NON-INTERFACED (ONBASE SCANS) Chloride (External) 105 96 - 114 mmol/L NON-INTERFACED (ONBASE SCANS) CO2 (External) 29 20 - 32 mmol/L NON-INTERFACED (ONBASE SCANS) Anion Gap (External) 3(L) 7 - 15 mEq/L NON-INTERFACED (ONBASE SCANS) Urea Nitrogen (External) 20 7 - 30 mg/dL NON-INTERFACED (ONBASE SCANS) Creatinine (External) 0.9 0.5 - 1.5 mg/dL NON-INTERFACED (ONBASE SCANS) GFR Estimated (External) 62 ml/min NON-INTERFACED (ONBASE SCANS) Calcium (External) 9.0 8.4 - 10.6 mg/dL NON-INTERFACED (ONBASE SCANS) Glucose (External) 153(H) 60 - 115 mg/dL NON-INTERFACED (ONBASE SCANS) Blood BLOOD SPECIMEN / Unknown 09/05/2023 9:45 AM CDT Narrative [facility] PFT - 12/23/2023 10:57 AM CDT Verified by Thu Cedeño on 12/23/2023. Loren Beyer MD LAB - BLOOD [place] Performing Organization Address [facility] Co de Phone Number [facility] PFT NON-INTERFACED (ONBASE SCANS) * Hepatic function panel (09/05/2023 9:45 AM CDT) Protein Total (External) 6.9 6.0 - 8.3 g/dL NON-INTERFACED (ONBASE SCANS) Albumin (External) 3.8 3.3 - 5.0 g/dL NON-INTERFACED (ONBASE SCANS) Bilirubin Total (External) 0.3 0.1 - 1.5 mg/dL NON-INTERFACED (ONBASE SCANS) AST (External) 28 12 - 35 U/L NON-INTERFACED (ONBASE SCANS) ALT (External) 23 4 - 35 U/L NON- INTERFACED (ONBASE SCANS) Alk Phosphatase (External) 65 40 - 150 U/L NON-INTERFACED (ONBASE SCANS) Blood BLOOD SPECIMEN / Unknown 09/05/2023 9:45 AM CDT Narrative [facility] PFT - 12/23/2023 10:57 AM CDT Verified by Thu Cedeño on 12/23/2023. Loren Beyer MD LAB - BLOOD [place] Performing Organization Address [facility]/ZIP Co de Phone Number [facility] P[facility] NON-INTERFACED (ONBASE SCANS) * (ABNORMAL) Hemoglobin A1c (09/05/2023 9:45 AM CDT) Hemoglobin A1C (External) 7.3(H) 0 - 5.6 % NON-INTERFACED (ONBASE SCANS) Blood BLOOD SPECIMEN / Unknown 09/05/2023 9:45 AM CDT Narrative [facility] PFT - 12/23/2023 10:57 AM CDT Verified by Thu Cedeño on 12/23/2023. Loren Beyer MD LAB - BLOOD [place] Performing Organization Address [facility] de Phone Number [facility] PFT NON-INTERFACED (ONBASE SCANS) * (ABNORMAL) Ferritin (09/05/2023 9:45 AM CDT) Ferritin (External) 8.5(L) 11.1 - 264.0 ng/mL NON-INTERFACED (ONBASE SCANS) Blood BLOOD SPECIMEN / Unknown 09/05/2023 9:45 AM CDT Narrative [facility] PFT - 12/23/2023 10:57 AM CDT Verified by Thu Cedeño on 12/23/2023. Loren Beyer MD LAB - BLOOD [place] Performing Organization Address [facility] Co de Phone Number [facility] PFT NON-INTERFACED (ONBASE SCANS) documented in this encounter Visit Diagnoses Not on filedocumented in this encounter Care Teams Asphalt Paving Foreman Relationship Specialty Start Date End Date Loren Beyer MD [facility] & [address] [address] PCP - General Family Practice 11/15/17 Teresa Chiu, RN Registered Nurse Cardiology 07/15/23 Meenu Denis DO [address] [place] [address] Assigned Heart and Vascular Provider 07/29/23 documented as of this encounter
--- OUTSIDE RECORDS SUMMARY | 2024-01-13 03:51 | XMS_ITS | Encounter Summary ---
Author Organization [place] Address [address] [place] [address] Care Team Providers Care Coupon Redemption Clerk Name Role Phone Loren Beyer MD Primary Care Provider + Teresa Chiu RN Unavailable Unavaila Meenu Alves DO Unavailable [phone] Encounter Details Date Type Department Care Team (Late st Contact Info) Description 11/28/2023 External Order Results [facility] [address] [place] [address] Outside, Provider Social History Tobacco Use Types [...] Description 01/23/2024 1:15 PM CDT Office Visit [facility] [place] [address] [address] [place] [address] Meenu Denis DO [address] [place] [address] documented as of this encounter Procedures Procedure Name Priority Date/Time Associated Diagnosis Comments CBC WITH PLATELETS & DIFFERENTIAL Routine 11/28/2023 9:30 AM CDT HEPATIC FUNCTION PANEL Routine 11/28/2023 9:30 AM CDT HEMOGLOBIN A1C Routine 11/28/2023 9:30 AM CDT FERRITIN Routine 11/28/2023 9:30 AM CDT CREATININE Routine 11/28/2023 9:30 AM CDT BASIC METABOLIC PANEL Routine 11/28/2023 9:30 AM CDT documented in this encounter Results [...] Beyer MD LAB - BLOOD [place] [facility] Organization Address City/State/ZIP Co de Phone Number [place] [facility] NON-INTERFACED (ONBASE SCANS) * (ABNORMAL) Basic metabolic panel (11/28/2023 9:30 AM CDT) Sodium (External) 137 135 - 149 mmol/L NON-INTERFACED (ONBASE SCANS) Potassium (External) 3.6 3.6 - 5.1 mmol/L NON-INTERFACED (ONBASE SCANS) Chloride (External) 99 96 - 114 mmol/L NON-INTERFACED (ONBASE SCANS) CO2 (External) 32 20 - 32 mmol/L NON-INTERFACED (ONBASE SCANS) Anion Gap (External) 6(L) 7 - 15 mEq/L NON-INTERFACED (ONBASE SCANS) Urea Nitrogen (External) 18 7 - 30 mg/dL NON-INTERFACED (ONBASE SCANS) Creatinine (External) 0.9 0.5 - 1.5 mg/dL NON-INTERFACED (ONBASE SCANS) GFR Estimated (External) 62 ml/min NON-INTERFACED (ONBASE SCANS) Calcium (External) 9.4 8.4 - 10.6 mg/dL NON-INTERFACED (ONBASE SCANS) Glucose (External) 172(H) 60 - 115 mg/dL NON-INTERFACED (ONBASE SCANS) Blood BLOOD SPECIMEN / Unknown 11/28/2023 9:30 AM CDT Narrative [facility] PFT - 12/23/2023 11:04 AM CDT Verified by Gini Johnson on 12/23/2023. Loren Beyer MD LAB - BLOOD [place]ie [place] [facility] NON-INTERFACED (ONBASE SCANS) * Hepatic [...] [place] Performing Organization Address [facility] de Phone Number [facility] PFT NON-INTERFACED [...] [place] Performing Organization Address [facility] de Phone Number [facility] PFT NON-INTERFACED (ONBASE SCANS) * (ABNORMAL) Ferritin (11/28/2023 9:30 AM CDT) Ferritin (External) 8.5(L) 11.1 - 264.0 ng/mL NON-INTERFACED (ONBASE SCANS) Blood BLOOD SPECIMEN / Unknown 11/28/2023 9:30 AM CDT Narrative [facility] PFT - 12/23/2023 11:04 AM CDT Verified by Gini Johnson on 12/23/2023. Loren Beyer MD LAB - BLOOD ORDJamie [place] Performing Organization Address [facility] de Phone Number [facility] PFT NON-INTERFACED (ONBASE SCANS) * Creatinine (11/28/2023 9:30 AM CDT) Creatinine (External) 0.9 0.5 - 1.5 mg/dL NON-INTERFACED (ONBASE SCANS) Blood BLOOD SPECIMEN / Unknown 11/28/2023 9:30 AM CDT Narrative [facility] PFT - 12/23/2023 11:04 AM CDT Verified by Gini Johnson on 12/23/2023. Loren Beyer MD LAB - BLOOD [place] [facility] Organization Address City/State/ZIP Co de Phone Number BREEZJamie PFT NON-INTERFACED (ONBASE SCANS) documented in this encounter Visit Diagnoses Not on filedocumented in this encounter Care Teams Coupon Redemption Clerk Relationship Specialty Start Date End Date Loren Beyer MD [facility] & [address] [address] PCP - General Family Practice 11/15/17 Teresa Chiu, RN Registered Nurse Cardiology 07/15/23 Meenu Denis DO [address] [place] [address] Assigned Heart and Vascular Provider 07/29/23 documented as of this encounter
--- OUTSIDE RECORDS SUMMARY | 2024-01-13 03:51 | XMS_ITS | Encounter Summary ---
Author Organization [place] Address [address] [place] [address] Care Team Providers Care Sales Representative Gas Service Name Role Phone Loren Beyer MD Primary Care Provider + Teresa Chiu RN Unavailable Unavaila Meenu Alves DO Unavailable [phone] Encounter Details Date Type Department Care Team (Latest Contact Info) Description 01/12/2024 Travel Social History Tobacco Use Types Packs/Day [...] Answer Date Recorded Do you have housing? (Housin g is defined as stable permanent housing and does not include staying ouside in a car, in a tent, in an abandoned building, in an overnight mcfp, or couch-surfing.) Yes 01/12/2024 Are you worried [...] Description 01/23/2024 1:15 PM CDT Office Visit [facility] [id number] [place] [address] [address] [place] [address] Meenu Denis DO [address] [place] [address] documented as of this encounter Visit Diagnoses Not on filedocumented in this encounter Care Teams Sales Representative Gas Service Relationship Specialty Start Date End Date Loren Beyer MD [facility] & [address] [address] PCP - General Family Practice 11/15/17 Teresa Chiu, RN Registered Nurse Cardiology 07/15/23 Meenu Denis DO [address] [place] [address] Assigned Heart and Vascular Provider 07/29/23 documented as of this encounter
== END 2024-01-12 02:37 | disposition home or self-care (01) ==
LOC: AMB 01-13 03:48
PROVIDERS: PCP Family Medicine; Visit Provider Family Medicine
DX: R07.89 Other chest pain (principal)
CPT/HCPCS: A0425; A0427

== ENCOUNTER 2024-03-05 14:20 | Outpatient (CLI) | payer MEDICARE, OTHER, SELFPAY ==
--- OUTSIDE RECORDS SUMMARY | 2024-03-08 08:04 | XMS_ITS | Clinical Summary ---
Author Organization [facility] [place], [place] [address] Care Team Providers Care Cat Breeder Name Role Phone Loren Beyer MD Primary [...] 01/30/2018 Atorvastatin Lisinopril 01/05/2008 Periorbital rash Calcitonin ([place]) Nsaids (Non-Steroidal Anti-Inflammatory Drug) Aspirin Contraindication (for [...] mg sublingual tabletIndications:Coron wilner artery disease involving shinnecock coronary artery of shinnecock heart with unstable angina pectoris (HC) Place [...] left anterior descending (LAD) coronary artery 01/04/2023 Overview (01/04/2023): STEMI s/p ARI x2 to proximal and mid LAD (01/04/2023) w/ staged PCI later on 01/04/2023 d/t [facility] 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 Keller with ultrasound guidance. April 2017: repeat Greater Trochanteric Bursa injection by Dr. Dunbar without ultrasound. Trochanteric bursitis, left hip 04/20/2017 Overview (04/20/2017): Mar 2017: Left Greater Trochanteric Bursa injection by Dr. Dunbar with very good relief. Shingles (right sided upper extremity) 3 Sensorineural hearing loss, asymmetrical 010 Overview (11/04/2009): Right-significant change since February 2009 Subjective tinnitus 11/04/2009 Overview (11/04/2009): Right ear Depression with anxiety 08/26/2009 Osteoporosis 06/04/2009 Unspecified hypothyroidism 12/25/2008 Unspecified essential hypertension 11/07/2006 Unspecified asthma(493.90) Allergic rhinitis, cause unspecified Esophageal reflux Overview (07/25/2009): EGD 07/2008 benign gastric polyp Mixed hyperlipidemia Resolved Problems Problem Noted Date Diagnosed Date Resolved Date Osteopenia 06/04/2009 06/04/2009 Esophageal reflux 06/04/2009 06/04/2009 Overview (06/04/2009): hx hiatal hernia Acute tracheobronchitis 03/04/200905/17 Influenza [...] (2 of 2 - PCV) 02/09/2008 02/08/2007 RSV vaccine for adults or (1 - 1-dose 75+ series) 10/10/2011 BMI (ht and wt on same day) for age 18+ 01/30/2019 01/30/2018, 08/26/2016 COVID-19 vaccine series ( - season) 2024 Influenza for age 65+ 01/15/2024 04/11/2009 , [...] Preferences, Provider to review later Care Teams Cat Breeder Relationship Specialty Start Date End Date Loren Beyer MD [address] [place] [address] PCP - General Family Practice 10/20/16
--- OUTSIDE RECORDS SUMMARY | 2024-03-08 08:04 | XMS_ITS | Clinical Summary ---
Author Organization [place] Address [facility] [place] [address] Care Team Providers Care Pneumatic Riveter Name Role Phone Loren Beyer MD Primary Care Provider + Meenu Denis DO Unavailable [phone] Allergies Active Allergy Reactions Criticality Noted Date [...] flares up Wool Fiber 01/22/2013 asthma Medications albuterol (PROAIR HFA, PROVENTIL HFA, VENTOLIN HFA) 108 (90 BASE) MCG/ACT inhaler Inhale 2 puffs into the lungs 2 times daily. Take before alvesco Active calcium-vitamin D (CALTRATE) 600-400 MG-UNIT per tablet Take 1 tablet by mouth daily Active multivitamin, therapeutic with minerals (MULTI-VITAMIN) TABS Take 1 tablet by mouth daily Active clopidogrel (PLAVIX) 75 MG tablet Take 75 mg by mouth daily. 3 Active ezetimibe (ZETIA) 10 MG tablet Take 1 tablet by mouth daily 3 Active nitroGLYcerin (NITROSTAT) 0.[address] 0.4 mg under the tongue every 5 minutes as needed Active polyethylene glycol-propylene glycol (SYSTANE) 0.4-0.3 % SOLN ophthalmic solution Place 1 drop into both eyes 4 times daily as needed for dry eyes. Active cloNIDine (CATAPRES) 0.1 MG tablet Take 0.05 mg by mouth 2 times daily Pt takes 1/2 tablet (0.05 mg) BID (AM & PM) and an additional 1/2 tablet (0.05 mg) PRN 3 Active predniSONE (DELTASONE) 5 MG tablet Take 5 mg by mouth every morning 3 Active sertraline (ZOLOFT) 50 MG tablet Take 50 mg by mouth every evening 3 Active levothyroxine (SYNTHROID/LEVOT HROID) 25 MCG tablet Take 25 mcg by mouth every morning 3 Active LORazepam (ATIVAN) 0.5 MG tablet Take 0.25 mg by mouth as needed. 2 Active FLOVENT HFA 110 MCG/ACT inhaler Inhale 2 puffs into the lungs 2 times daily 3 Active calcium carbonate (TUMS) 500 MG chewable tablet Take 500 mg by mouth as needed for heartburn Active omeprazole (PRILOSEC) [address] capsule Take 40 mg by mouth daily. Active chlorpheniramine (CHLOR-TRIMETON) 4 MG tablet Take 2 mg by mouth as needed. 2 Active sodium chloride (OCEAN) 0.65 % nasal spray [place] 1 spray in nostril daily as needed for congestion. 2 Active ciclesonide (ALVESCO) 160 MCG/ACT inhaler Inhale 2 puffs into the lungs 2 times daily. Take after albuterol Active lactase (LACTAID) 3000 UNIT tablet Take 3,000 Units by mouth as needed for indigestion. Active metoprolol succinate ER (TOPROL XL) 25 MG 24 hr tablet Take 2 tablets (50 mg) by mouth daily. 4 Active losartan (COZAAR) 50 MG tabletIndication s:Coronary artery disease involving [place] coronary artery of [place] heart without angina pectoris,Benign essential hypertension,M[address] st pain, unspecified type Take 1 tablet (50 mg) by mouth 2 times daily. 180 tablet 4 4 Active Active Problems Problem Noted Date Diagnosed [...] artery 01/04/2023 Chronic systolic congestive heart failure 08/22/ 2023 Resolved Problems Problem Noted Date Diagnosed Date Resolved Date 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 3 Encounters Date Type Department Care Team Description 02/24/2024 3:15 PM CDT Virtual Visit [facility] [address] [place] [phone] Meenu Denis DO Coronary artery disease involving [place] coronary artery of [place] heart without angina pectoris; Benign essential hypertension; Chest pain, unspecified type 01/24/2024 Telephone [facility] [address] [place] [phone] Meenu Denis DO OTHER (Dental clearance) 01/23/2024 1:15 PM CDT Office Visit [facility] [address] [place] [phone] Meenu Denis DO Coronary artery disease involving [place] coronary artery of [place] heart without angina pectoris (Primary Dx); Benign essential hypertension; Chest pain, unspecified type 01/23/2024 Travel 01/12/2024 3:33 AM CDT - 01/13/2024 3:55 PM CDT Hospital Encounter [facility] Observ[facility] Dept [address] [place] [phone] Adan Irene MD Burns, Bradley Joseph, DO Dorn, Karen T, MD Chest pain, unspecified type; Hypoxemia; Pneumonia due to infectious organism, unspecified laterality, unspecified part of lung; Hypertensive urgency Discharge Disposition: Home or Self Care 01/12/2024 Travel from Last 3 Months Social History Tobacco Use Types Packs/Day Years Used Date Smoking Tobacco: Never Smokeless Tobacco: Never Tobacco Cessation:Counseling Given: Not Answered Alcohol Use Standard Drinks/Week Comments No 0 (1 standard drink = 0.6 oz pur e alcohol) PHQ-2 Answer Date Recorded PHQ-2 Score 1 01/23/2024 Adolescent Education Answer Date Record ed Getting [...] in an abandoned building, in an overnight senior care, or couch-surfing.) Yes 01/12/2024 Are you worried [...] getting things that you need? 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 Gender Identity Not on file Sexual Orientation Not on file Last Filed Vital Signs Vital Sign Reading Time Taken Comments Blood Pressure 188/80 01/23/2024 1:26 PM CDT Pulse 74 01/23/2024 1:10 PM CDT Temperature 36.6 ??C (97.9 ??F) 01/13/2024 11:00 AM C DT Respiratory Rate 18 01/13/2024 11:00 AM CDT Oxygen Saturation 95% 01/13/2024 11:00 AM CDT Inhaled Oxygen Concentration - - Weight 52.4 kg (115 lb 8 oz) 01/23/2024 1:10 PM CDT Height 147.3 cm (4' 10) 01/23/2024 1:10 PM CDT Body Mass Index 24.14 01/23/2024 1:10 PM CDT Plan of Treatment Health Maintenance Due Date Last Done Comments ADVANCE CARE PLANNING 1935 ANNUAL REVIEW OF HM ORDERS 1935 ASTHMA ACTION PLAN 1936 ASTHMA CONTROL TEST 1936 DEXA 1936 DIABETIC FOOT EXAM 1936 EYE EXAM 1936 HF ACTION PLAN 1936 MICROALBUMIN 1936 DTAP/TDAP/TD IMMUNIZATION (1 - Tdap) 1961 ZOSTER IMMUNIZATION (1 of 2) 1986 FALL RISK ASSESSMENT 2001 MEDICARE ANNUAL WELLNESS VISIT 2001 RSV VACCINE (1 - 1-dose 75+ series) 10/10/2011 COVID-19 Vaccine ( season) 2024 03/17/2023, 03/23/2022, 03/19/2021, Additional history exists INFLUENZA VACCINE (#1) 2024 , 03/03/2022, 02/27/2021, Additional history exists LIPID 01/25/2024 01/24/2023 A1C 02/28/2024 11/28/2023, 09/05/2023 BMP 07/13/2024 01/13/2024, 12/15, 11/28/2023, Additional history exists ALT 11/27/2024 11/28/2023, 08/15, 01/24/2023, Additional history exists CBC 01/12/2025 01/13/2024, 12/15, 11/28/2023, Additional history exists Pneumococcal Vaccine: 65+ Years Completed 06/16/2017, 09/05/2014, 02/08/2007, Additional history exists TSH W/FREE T4 REFLEX Completed 01/12/2024 PHQ-2 (once per calendar year) Completed 01/23/2024, 02/25/2023 HPV IMMUNIZATION Aged Out No longer e ligible based on patient's age to complete this topic MENINGITIS IMMUNIZATION Aged Out No l onger eligible based on patient's age to complete this topic RSV MONOCLONAL ANTIBODY Aged Out No l onger eligible based on patient's age to complete this topic Medical Devices Implanted Type Area Professor Of Theatre Device Identifier Shelf Expiration Date Model / Serial / Lot Glenosphere 25mm Mini Baseplate Implanted:Qty: 1 on 01/30/2013 by Jc Farr MD at [facility] Right: Shoulder 11/12/2022 [id number] / / [id number] Humeral Bearing Standard 44-36mm Implanted:Qty: 1 on 01/30/2013 by Jc Farr MD at [facility] Right: Shoulder 10/12/2017 [id number] / / [id number] Implanted:Qty: 1 on 01/30/2013 by Jc Farr MD at [facility] Right: Shoulder 10/12/2022 [id number] / / [id number] 3.5 Hex Fixed Locking Screw [id number] Implanted:Qty: 1 on 01/30/2013 by Jc Farr MD at [facility] Right: Shoulder 12/12/2022 [id number] / / [id number] Fixed Hex Locking Screw Implanted:Qty: 1 on 01/30/2013 by Jc Farr MD at [facility] Right: Shoulder 12/12/2022 [id number] / / [id number] Hex Fixed Locking Screw Implanted:Qty: 1 on 01/30/2013 by Jc Farr MD at [facility] Right: Shoulder 12/12/2022 [id number] / / [id number] Fixed Locking Screw Implanted:Qty: 1 on 01/30/2013 by Jc Farr MD at [facility] Right: Shoulder 12/12/2022 [id number] / / [id number] Glenosphere 36mm Curve/Standard Implanted:Qty: 1 on 01/30/2013 by Jc Farr MD at [facility] Right: Shoulder 12/12/2022 [id number] / / [id number] 9x83mm Shoulder Stem Implanted:Qty: 1 on 01/30/2013 by Jc Farr MD at [facility] Right: Shoulder 10/12/2022 [id number] / / [id number] Humeral Tray 44mm Standard Implanted:Qty: 1 on 01/30/2013 by Jc Farr MD at [facility] Right: Shoulder 12/12/2022 [id number] / / [id number] Procedures Procedure Name Priority Date/Time Associated Diagnosis Comments TROPONIN T, HIGH SENSITIVITY STAT 01/13/2024 11:12 AM CDT TROPONIN T, HIGH SENSITIVITY STAT 01/13/2024 6:51 AM CDT EKG 12-LEAD, TRACING ONLY STAT 01/13/2024 6:35 AM CDT CBC WITH PLATELETS Routine 01/13/2024 5: 39 AM CDT BASIC METABOLIC PANEL Routine 01/13/2024 5:39 AM CDT GLUCOSE BY METER Routine 01/12/2024 5:41 PM [...] TRACING ONLY STAT 01/12/2024 3:35 AM CDT HEPATIC FUNCTION PANEL Routine 9:30 AM CDT HEMOGLOBIN A1C Routine 11/28/2023 9:30 AM CDT LIPID PROFILE Routine 01/24/2023 8:51 AM CDT from Last 3 Months or Most Recently Relevant to Health Maintenance Results * (ABNORMAL) Troponin T, High Sensitivity (01/13/2024 11:12 AM CDT) Only the most recent of4 resultswithin the time period is included. Troponin T, High Sensitivity 20(H) <=14 ng/L 01/13/2024 11:40 AM CDT LABORATORY Comment: Either a High [...] follow-up, or urgent outpatient provocative testing. Blood STRUCTURE OF LEFT UPPER LIMB / Unknown Venipuncture / Unknown 01/13/2024 11:12 AM CDT 01/13/2024 11:17 AM CDT us Aletha Ca MD LAB - BLOOD ORDERABLES Final Res ult [facility] [address] Lab (1st floor, no room number) [place] [address], [facility] * EKG 12-lead, tracing only (01/13/2024 6:35 AM CDT) Only the most recent of2 resultswithin the time period is included. Systolic Blood Pressure mmHg RADIOLOGY RESULTS Diastolic Blood Pressure mmHg RADIOLOGY RESULTS Ventricular Rate 79 BPM RAD IOLOGY RESULTS Atrial Rate 79 BPM RADIOLOG Y RESULTS UT Interval 176 ms RADIOLOG Y RESULTS QRS Duration 90 ms RADIOLO GY RESULTS QT 388 ms RADIOLOGY RESULTS QTc 444 ms RADIOLOGY RESULTS P [place] 40 degrees RADIOLOGY RESULTS R AXIS -41 degrees RADIOLOGY RESULTS T [place] 14 degrees RADIOLOGY RESULTS Interpretation ECG Sinus rhythm Possible Left atrial enlargement Left axis deviation Septal infarct (cited on or before 12-Jan-2024) Abnormal ECG When compared with ECG of 12-Jan-2024 03:35, No significant change was found Confirmed by MD JACINTO STEVEN ([id number]) on 01/13/2024 4:24:06 PM RADIOLOGY RESULTS 01/13/2024 6:35 AM CDT 01/13/2024 4:24 PM CDT us Aletha Ca MD ECG ORDERABLES Edited Result - Final RADIOLOGY RESULTS * (ABNORMAL) Basic metabolic panel (01/13/2024 5:39 AM CDT) Only the most recent of2 resultswithin the time period is included. Pathologist [facility] Sodium 137 135 - 145 mmol/L 01/13/2024 6:15 AM CDT LABORATORY Potassium 3.6 3.4 - 5.3 mmol/L 01/13/2024 6:15 AM CDT LABORATORY Chloride 103 98 - 107 mmol/L 01/13/2024 6:15 AM CDT LABORATORY Carbon Dioxide (CO2) 24 22 - 29 mmol/L 01/13/2024 6:15 AM CDT LABORATORY Anion Gap 10 7 - 15 mmol/L 01/13/2024 6:15 AM CDT [facility] LABORATORY Urea Nitrogen 15.1 8.0 - 23.0 mg/dL 01/13/2024 6:15 AM CDT [facility] LABORATORY Creatinine 0.83 0.51 - 0.95 mg/dL 01/13/2024 6:15 AM CDT [facility] LABORATORY GFR Estimate 68 >60 mL/min/1.7 3m2 01/13/2024 6:15 AM CDT [facility] LABORATORY Comment:eGFR calculated usin 2020 CKD-EPI equation. Calcium 8.9 8.8 - 10.4 mg/dL 01/13/2024 6:15 AM CDT [facility] LABORATORY Comment:Reference intervals for this test were updated on 11/29/2023 to reflect our healthy population more accurately. There may be differences in the flagging of prior results with similar values performed with this method. Those prior results can be interpreted in the context of the updated reference intervals. Glucose 146(H) 70 - 99 mg/dL 01/13/2024 6:15 AM CDT [facility] LABORATORY Blood STRUCTURE OF RIGHT HAND / Unknown Venipuncture / Unknown 01/13/2024 5:39 AM CDT 01/13/2024 5:49 AM CDT us Aletha Ca MD LAB - BLOOD ORDERABLES Final Res ult [facility] LABORATORY [facility] Acute Care Lab [address] [facility] Lab (1st floor, no room number) [place] [address], [facility] * (ABNORMAL) CBC with platelets (01/13/2024 5:39 AM CDT) WBC Count 11.6(H) 4.0 - 11.0 10e3/uL 01/13/2024 5:51 AM CDT [facility] LABORATORY RBC Count 4.27 3.80 - 5.20 10e6/uL 01/13/2024 5:51 AM CDT [facility] LABORATORY Hemoglobin 10.2(L) 11.7 - 15.7 g/dL 01/13/2024 5:51 AM CDT [facility] LABORATORY Hematocrit 33.5(L) 35.0 - 47.0 % 01/13/2024 5:51 AM CDT [facility] LABORATORY MCV 79 78 - 100 fL 01/13/2024 5:51 AM CDT [facility] LABORATORY MCH 23.9(L) 26.5 - 33.0 pg 01/13/2024 5:51 AM CDT [facility] LABORATORY MCHC 30.4(L) 31.5 - 36.5 g/dL 01/13/2024 5:51 AM CDT [facility] LABORATORY RDW 16.8(H) 10.0 - 15.0 % 01/13/2024 5:51 AM CDT [facility] LABORATORY Platelet Count 224 150 - 450 10e3/uL 01/13/2024 5:51 AM CDT [facility] LABORATORY Blood STRUCTURE OF RIGHT HAND / Unknown Venipuncture / Unknown 01/13/2024 5:39 AM CDT 01/13/2024 5:49 AM CDT Aletha Ca MD LAB - BLOOD ORDERABLES Final Res ult LABORATORY [facility] Lab [address] Lab (1st floor, no room number) [place] [phone], [facility] * (ABNORMAL) Glucose by meter (01/12/2024 5:41 PM CDT) GLUCOSE BY METER POCT 285(H) 70 - 99 mg/dL 01/12/2024 5:50 PM CDT LABORATORY POC Blood, Capillary BLOOD SPECIMEN / Unknown 01/12/2024 5:41 PM CDT 01/12/2024 5:50 PM CDT Aletha Ca MD LAB - BEAKER POCT Final Result LABORATORY POC [facility] Care Lab [address] Lab (1st floor, no room number) [place] [address], [facility] * ECHO COMPLETE (01/12/2024 1:38 PM CDT) LVEF 60-65% CARDIOLOGY RESULTS Anatomical Region Laterality Modality Echocardiography 01/12/2024 12:5 4 PM CDT Narrative 01/12/2024 3:51 PM CDT [id number]^PREETHI^JENISE^GIOVANY [facility] Echocardiography Laboratory [address] [place] [address] Name: FAWAD UNGER : 1935 Study Date: 01/12/2024 12:54 PM Age: 88 yrs Gender: Female Patient Location: [facility] Reason For Study: CAD Ordering Physician: [...] Procedure Note Yaakov Bhandari MD - 01/12/2024 [id number]^PREETHI^JENISE^GIOVANY [facility] Echocardiography Laboratory [address] [place] [id number] Name: FAWAD UNGER : 1935 Study Date: 01/12/2024 12:54 PM Age: 88 yrs Gender: Female Patient Location: [facility] Reason For Study: CAD Ordering Physician: [...] 03:51 PM Jenise Oro MD CV ECHO ORDERABLES Edited Result - Final * Asymptomatic COVID-19 Virus (Coronavirus) by PCR Nasopharyngeal (01/12/2024 5:40 AM CDT) [facility] SARS CoV2 PCR Negative Negative 01/12/2024 6:34 AM CDT LABORATORY Comment:NEGATIVE: SARS-CoV-2 (COVID-19) RNA not detected, presumed negative. Swab NASOPHARYNGEAL STRUCTURE / Unknown Non-blood Collection / Unknown 01/12/2024 5:40 AM CDT 01/12/2024 5:50 AM CDT [facility] LABORATORY - 01/12/2024 6:34 AM CDT Testing was performed using the Xpert Xpress SARS-CoV-2 Assay on the [employer]. Additional information about this Emergency [...] COVID-19. This test was validated by the [facility]. This laboratory is certified under the Clinical Laboratory Improvement Amendments (CLIA) as qualified to perform high complexity laboratory testing. us Adan Irene MD LAB - MICRO GENERAL ORDERABLE S Final Result LABORATORY [facility] [address] [facility] [address] [facility] (1st floor, no room number) [place] [address] * Procalcitonin (01/12/2024 5:26 AM CDT) Procalcitonin [...] See Procalcitonin Guidance document for more details. [email or web address] Factors that may affect PCT levels (not [...] CDT Aletha Ca MD LAB - BLOOD ORDERABLES Final Res ult Performing Organization Address City/[facility]/ZIP Co de Phone Number [facility] Lab [address] Lab (1st floor, no room number) [address] * TSH with free T4 reflex (01/12/2024 5:26 AM CDT) TSH 2.47 0.30 - 4.20 uIU/mL 01/12/2024 10:06 AM CDT LABORATORY Blood BLOOD SPECIMEN / Unknown Venipuncture / Unknown 01/12/2024 5:26 AM CDT 01/12/2024 5:31 AM CDT Jenise Oro MD LAB - BLOOD ORDERABLES Fi nal Result Performing Organization Address [facility]/ZIP Co de Phone Number [facility] Lab [address] Lab (1st floor, no room number) [address] * CT Chest Pulmonary Embolism w [...] CT CHEST PULMONARY EMBOLISM W CONTRAST LOCATION[facility] DATE: 01/12/2024 INDICATION: left anterior chest [...] CT CHEST PULMONARY EMBOLISM W CONTRAST LOCATION: [facility] DATE: 01/12/2024 INDICATION: left anterior chest [...] 1.5 cm: Evaluate with thyroid ultrasound. Adan Ierne MD IMG CT ORDERABLES Final Resul t * Extra Red Top Tube (01/12/2024 3:39 AM CDT) Hold Specimen [facility] 01/12/2024 4:46 AM CDT [facility] LABORATORY Blood BLOOD SPECIMEN / Unknown Venipuncture / Unknown 01/12/2024 3:39 AM CDT 01/12/2024 3:42 AM CDT Adan Irene MD LAB - BLOOD ORDERABLES Final Result LABORATORY [facility] [address] [employer] Lab (1st floor, no room number) [address] * Extra Blue Top Tube (01/12/2024 3:39 AM CDT) Hold Specimen [facility] 01/12/2024 4:46 AM CDT RH LABORATORY Blood BLOOD SPECIMEN / Unknown Venipuncture / Unknown 01/12/2024 3:39 AM CDT 01/12/2024 3:42 AM CDT Adan Irene MD LAB - BLOOD ORDERABLES Final Result [facility] Lab [address] [employer] Lab (1st floor, no room number) [address] * (ABNORMAL) CBC with platelets and [...] CDT Adan Irene MD LAB - BLOOD ORDERABLES Final Result [facility] Lab [address] Lab (1st floor, no room number) [place] [address] * Hepatic function panel (11/28/2023 9:30 AM [...] SPECIMEN / Unknown 11/28/2023 9:30 AM CDT Myranda BOUCHER PFT - 12/23/2023 11:04 AM CDT Verified by Gini Johnson on 12/23/2023. us Loren Beyer MD LAB - BLOOD ORDERABLES E dited Result - Final BREEZE PFT NON-INTERFACED (ONBASE SCANS) * (ABNORMAL) Hemoglobin A1c (11/28/2023 9:30 AM CDT) Hemoglobin A1C (External) 7.4(H) 0 - 5.6 % NON-INTERFACED (ONBASE SCANS) Blood BLOOD SPECIMEN / Unknown 11/28/2023 9:30 AM CDT Narrative GENAROEZE PFT - 12/23/2023 11:04 AM CDT Verified by Gini Johnson on 12/23/2023. us Loren Beyer MD LAB - BLOOD ORDERABLES E dited Result - Final CITLALY PFT NON-INTERFACED (ONBASE SCANS) * Lipid [...] CDT Verified by Lolita Rhodes on 02/03/2023. us Provider Outside LAB - BLOOD ORDERABLES Romana R esult - Final CITLALY PFT NON-INTERFACED (ONBASE SCANS) from Last 3 Months or Most Recently Relevant to Health Maintenance Insurance [employer] MEDICARE MEDICA PRIME SOLUTION MEDICARE Advance Directives For more information, please contact: [phone] * No CPR- Do NOT Intubate (Latest Code Status on File) Date Activated Date Inactivated Comments 01/12/2024 6:51 AM 01/13/2024 5:55 PM NO basic or advanced life-sustaining interventions are performed Question Answer Comments Code status determined by: Discussion with patie nt/ legal decision maker * DNR/DNI Date Activated Date Inactivated Comments 01/30/2013 12:12 PM 02/02/2013 12:40 PM Care Teams Pneumatic Riveter Relationship Specialty Start Date End Date Loren Beyer MD [facility] [address] [place] [address] PCP - General Family Practice 11/15/17 Meenu Denis DO [address] [place] [address] Assigned Heart and Vascular Provider 07/29/23
--- OUTSIDE RECORDS SUMMARY | 2024-03-08 08:04 | XMS_ITS | Referral Summary ---
Author Organization [place] Address [facility] 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; Benign essential hypertension; Chest pain, unspecified type 01/24/[address] [place] [id number] Meenu Denis DO OTHER (Dental clearance) 01/23/2024 Travel 01/23/2024 1:15 PM CDT Office Visit [facility] [address] [place] [address] Meenu Denis DO 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 (Primary Dx); Benign essential hypertension; Chest pain, unspecified type 01/12/2024 3:33 AM CDT - 01/13/2024 3:55 PM CDT Hospital Encounter [facility] Observation Dept [address] [place] [address] Adan Irene MD Burns, Bradley Joseph, DO Dorn, Karen T, MD Chest pain, unspecified type; Hypoxemia; Pneumonia due to infectious organism, unspecified laterality, unspecified part of lung; Hypertensive urgency Discharge Disposition: Home or Self Care 01/12/2024 Travel from Last 3 Months Allergies Active Allergy [...] sodium chloride (OCEAN) 0.65 % nasal spray [place] 1 spray in nostril daily as needed [...] 50 MG tabletIndication s: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,Benign essential hypertension,Mariana st [...] on file 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 Gender Identity Not on file Sexual Orientation [...] 01/23/2024 1:10 PM CDT Plan of Treatment Not on file Medical Devices Implanted Type Area Pay Station Collector Device Identifier Shelf Expiration Date Model / Serial / Lot Glenosphere 25mm Mini Baseplate Implanted:Qty: 1 on 01/30/2013 by Jc Farr MD at [facility] Right: Shoulder 11/12/2022 [id number] / / [id number] Humeral Bearing Standard 44-36mm Implanted:Qty: 1 on 01/30/2013 by Jc Farr MD at [facility] Right: Shoulder 10/12/2017 [id number] / / [id number] Implanted:Qty: 1 on 01/30/2013 by Jc Farr MD at [facility] Right: Shoulder 10/12/2022 [id number] / / [id number] 3.5 Hex Fixed Locking Screw 4.49s61ob Implanted:Qty: 1 on 01/30/2013 by Jc Farr MD at [facility] Right: Shoulder 12/12/2022 [id number] / / [id number] [id number] Fixed Hex Locking Screw Implanted:Qty: 1 on 01/30/2013 by Jc Farr MD at [facility] Right: Shoulder 12/12/2022 [id number] / / [id number] 4.47x86hy Hex Fixed Locking Screw Implanted:Qty: 1 on 01/30/2013 by Jc Farr MD at [facility] Right: Shoulder 12/12/2022 [id number] / / [id number] [id number] Fixed Locking Screw Implanted:Qty: 1 on 01/30/2013 by Jc Farr MD at [facility] Right: Shoulder 12/12/2022 [id number] / / [id number] Glenosphere 36mm Curve/Standard Implanted:Qty: 1 on 01/30/2013 by Jc Farr MD at [facility] Right: Shoulder 12/12/2022 [id number] / / [id number] 9x83mm Shoulder Stem Implanted:Qty: 1 on 01/30/2013 by Jc Farr MD at [facility] Right: Shoulder 10/12/2022 [id number] / / [id number] Humeral Tray 44mm Standard Implanted:Qty: 1 on 01/30/2013 by Jc Farr MD at [facility] Right: Shoulder 12/12/2022 [id number] / / [id number] Procedures Procedure Name Priority Date/Time Associated Diagnosis [...] 20(H) <=14 ng/L 01/13/2024 11:40 AM CDT [facility] LAB[facility]ATORY Comment: Either a High Sensitivity Troponin [...] BLOOD ORDERABLES Final Res ult [facility] LABORATORY [facility] [address] Lab (1st floor, no room number) [place] [address] * EKG 12-lead, tracing only (01/13/2024 6:35 AM CDT) Only the most recent of2 resultswithin the time period is included. Systolic Blood Pressure mmHg RADIOLOGY RESULTS Diastolic Blood Pressure mmHg RADIOLOGY RESULTS Ventricular Rate 79 BPM RAD IOLOGY RESULTS Atrial Rate 79 BPM RADIOLOG Y RESULTS NH Interval 176 ms RADIOLOG Y RESULTS QRS Duration 90 ms RADIOLO GY RESULTS QT 388 ms RADIOLOGY RESULTS QTc 444 ms RADIOLOGY RESULTS P [place] 40 degrees RADIOLOGY RESULTS R AXIS -41 degrees RADIOLOGY RESULTS T [place] 14 degrees RADIOLOGY RESULTS Interpretation ECG Sinus rhythm Possible Left atrial enlargement Left axis deviation Septal infarct (cited on or before 12-Jan-2024) Abnormal ECG When compared with ECG of 12-Jan-2024 03:35, No significant change was found Confirmed by MD OPHELIA, VITALY ([id number]) on 01/13/2024 4:24:06 PM RADIOLOGY RESULTS 01/13/2024 6:35 AM CDT 01/13/2024 4:24 PM CDT Aletha Ca MD ECG ORDERABLES Edited Result - Final RADIOLOGY RESULTS * (ABNORMAL) Basic metabolic panel (01/13/2024 5:39 AM CDT) Only the most recent of2 resultswithin the time period is included. Sodium 137 135 - 145 mmol/L 01/13/2024 6:15 AM CDT LABORATORY Potassium 3.6 3.4 - 5.3 mmol/L 01/13/2024 6:15 AM CDT LABORATORY Chloride 103 98 - 107 mmol/L 01/13/2024 6:15 AM CDT LABORATORY Carbon Dioxide (CO2) 24 22 - 29 mmol/L 01/13/2024 6:15 AM CDT LABORATORY Anion Gap 10 7 - 15 mmol/L 01/13/2024 6:15 AM CDT LABORATORY Urea Nitrogen 15.1 8.0 - 23.0 [...] BLOOD ORDERABLES Final Res ult [facility] LABORATORY [facility] [address] [facility] Lab (1st floor, no room number) [place] [address], [facility] * (ABNORMAL) CBC with platelets (01/13/2024 5:39 [...] - BLOOD ORDERABLES Final Res ult LABORATORY [facility] [address] Lab (1st floor, no room number) [address] [place] [address] * (ABNORMAL) Glucose by meter (01/12/2024 5:41 PM CDT) GLUCOSE BY METER POCT 285(H) 70 - 99 mg/dL 01/12/2024 5:50 PM CDT LABORATORY POC Blood, Capillary BLOOD SPECIMEN / Unknown 01/12/2024 5:41 PM CDT 01/12/2024 5:50 PM CDT Aletha Ca MD LAB - BEAKER POCT Final Result LABORATORY POC [facility] [address] Lab (1st floor, no room number) [address] * ECHO COMPLETE (01/12/2024 1:38 PM CDT) LVEF 60-65% CARDIOLOGY RESULTS Anatomical Region Laterality Modality Echocardiography 01/12/2024 12:5 4 PM CDT Narrative 01/12/2024 3:51 PM [facility] [id number]^PREETHI^JENISE^GIOVANY [facility] Echocardiography Laboratory [address] [place] [address] Name: FAWAD UNGER : 1935 Study Date: 01/12/2024 12:54 PM Age: 88 yrs Gender: Female Patient Location: [facility] Reason For Study: CAD Ordering Physician: JENISE [...] Procedure Note Yaakov Bhandari MD - 01/12/2024 [id number]^PREETHI^JENISE^GIOVANY [facility] Echocardiography Laboratory [address] [place] [address] Name: FAWAD UNGER : 1935 Study Date: 01/12/2024 12:54 PM Age: 88 yrs Gender: Female Patient Location: [facility] Reason For Study: CAD Ordering Physician: JENISE [...] by PCR Nasopharyngeal (01/12/2024 5:40 AM CDT) [facility] SARS CoV2 PCR Negative Negative 01/12/2024 6:34 AM CDT LABORATORY Comment:NEGATIVE: SARS-CoV-2 (COVID-19) RNA not detected, presumed negative. Swab NASOPHARYNGEAL STRUCTURE / Unknown Non-blood Collection / Unknown 01/12/2024 5:40 AM CDT 01/12/2024 5:50 AM CDT [facility] LABORATORY - 01/12/2024 6:34 AM CDT Testing was performed using the Xpert Xpress SARS-CoV-2 Assay on the [employer]. Additional information about this Emergency [...] COVID-19. This test was validated by the [facility]. This laboratory is certified under the Clinical Laboratory Improvement Amendments (CLIA) as qualified to perform high complexity laboratory testing. us Adan Irene MD LAB - MICRO GENERAL ORDERABLE S Final Result LABORATORY [facility] [address] Lab (1st floor, no room number) [place] [address] * Procalcitonin (01/12/2024 5:26 AM CDT) [...] See Procalcitonin Guidance document for more details. [email or web address]://[email or web address]/files/[email or web address] Factors that may affect PCT levels (not [...] 5:26 AM CDT 01/12/2024 5:31 AM CDT us Aletha Ca MD LAB - BLOOD ORDERABLES Final Res ult Performing Organization Address City/[facility]/ZIP Co de Phone Number [facility] Lab [address] Lab (1st floor, no room number) [address] * TSH with free T4 reflex (01/12/2024 5:26 AM CDT) TSH 2.47 0.30 - 4.20 uIU/mL 01/12/2024 10:06 AM CDT LABORATORY Blood BLOOD SPECIMEN / Unknown Venipuncture / Unknown 01/12/2024 5:26 AM CDT 01/12/2024 5:31 AM CDT us Jenise Oro MD LAB - BLOOD ORDERABLES Fi nal Result Performing Organization Address [facility]/ZIP Co de Phone Number [facility] Lab [address] Lab (1st floor, no room number) [address] * CT Chest Pulmonary Embolism w [...] CT CHEST PULMONARY EMBOLISM W CONTRAST LOCATION: [facility] DATE: 01/12/2024 INDICATION: left anterior chest [...] CT CHEST PULMONARY EMBOLISM W CONTRAST LOCATION: [facility] DATE: 01/12/2024 INDICATION: left anterior chest [...] ultrasound. Adan Irene MD IMG CT ORDERABLES Final Resul t * Extra Red Top Tube (01/12/2024 3:39 AM CDT) Hold Specimen [facility] 01/12/2024 4:46 AM CDT [facility] LABORATORY Blood BLOOD SPECIMEN / Unknown Venipuncture / Unknown 01/12/2024 3:39 AM CDT 01/12/2024 3:42 AM CDT Adan Irene MD LAB - BLOOD ORDERABLES Final Result [facility] Lab [address] [employer] Lab (1st floor, no room number) [address] * Extra Blue Top Tube (01/12/2024 3:39 AM CDT) Hold Specimen [facility] 01/12/2024 4:46 AM CDT LABORATORY Blood BLOOD SPECIMEN / Unknown Venipuncture / Unknown 01/12/2024 3:39 AM CDT 01/12/2024 3:42 AM CDT Adan Irene MD LAB - BLOOD ORDERABLES Final Result [facility] Lab [address] Lab (1st floor, no room number) [address] * (ABNORMAL) CBC with platelets and [...] NRBCs 0.0 10e3/uL 01/12/2024 3:44 AM CDT LABORATORY Blood BLOOD SPECIMEN / Unknown Venipuncture / Unknown 01/12/2024 3:39 AM CDT 01/12/2024 3:42 AM CDT us Adan Irene MD LAB - BLOOD ORDERABLES Final Result LABORATORY [facility] [address] Lab (1st floor, no room number) [place] [address] * Hepatic function panel (11/28/2023 9:30 AM [...] BLOOD ORDERABLES E dited Result - Final JARRODE PFT NON-INTERFACED (ONBASE SCANS) * (ABNORMAL) Hemoglobin [...] us Provider Outside LAB - BLOOD ORDERABLES Edited R esult - Final CITLALY PFT NON-INTERFACED (ONBASE SCANS) from Last 3 Months or Most Recently Relevant to Health Maintenance Insurance [employer] [place] MEDICARE MEDICA PRIME SOLUTION MEDICARE Advance Directives For more information, please contact: [phone] * No CPR- Do NOT Intubate (Latest Code Status on File) Date Activated Date Inactivated Comments 01/12/2024 6:51 AM 01/13/2024 5:55 PM NO basic or advanced life-sustaining interventions are performed Question Answer Comments Code status determined by: Discussion with patie nt/ legal decision maker * DNR/DNI Date Activated Date Inactivated Comments 01/30/2013 12:12 PM 02/02/2013 12:40 PM Care Teams Assistant Front Desk Manager Relationship Specialty Start Date End Date Loren Beyer MD [facility] & [address] [address] PCP - General Family Practice 11/15/17 Meenu Denis DO [address] [place] [address] Assigned Heart and Vascular Provider 07/29/23
--- OUTSIDE RECORDS SUMMARY | 2024-03-08 08:05 | XMS_ITS ---
Author Organization [place] Address [facility] [place] [address] Care Team Providers Care Dry Goods Inspector Name Role Phone Loren Beyer MD Primary Care Provider + Meenu Denis DO Unavailable [phone] Transitional Care Management Status:Closed (Closed) Start date:01/14/2024 Enrollment date:01/15/2024 End date:01/28/2024 Close reason:Goals met Continued Care and Services Coordination
--- OUTSIDE RECORDS SUMMARY | 2024-03-08 08:05 | XMS_ITS | Encounter Summary ---
Author Organization [place] Address [facility] [place] [address] Care Team Providers Care Table Filler Name Role Phone Loren Beyer MD Primary Care Provider + Meenu Denis DO Unavailable [phone] Encounter Details Date Type Department Care Team (Latest Contact Info) Description 01/23/2024 Travel Social History Tobacco Use Types Packs/Day [...] Answer Date Recorded Do you have housing? ([place] is defined as stable permanent housing and does not include staying ouside in a car, in a tent, in an abandoned building, in an overnight longterm, or couch-surfing.) Yes 01/12/2024 Are you worried [...] on file Legal Sex Female 5:08 AM SED [employer] Gender Identity Not on file Sexual Orientation Not on file documented as of this encounter Plan of Treatment Not on file documented as of this encounter Visit Diagnoses Not on filedocumented in this encounter Care Teams Table Filler Relationship Specialty Start Date End Date Loren Beyer MD [facility] & [address] [address] PCP - General Family Practice 11/15/17 Meenu Denis DO [address] [place] [address] Assigned Heart and Vascular Provider 07/29/23 documented as of this encounter
--- OUTSIDE RECORDS SUMMARY | 2024-03-08 08:05 | XMS_ITS | Encounter Summary ---
Author Organization [facility] Address [facility] [address] Care Team Providers Care Paid Internship Name Role Phone Loren Beyer MD Primary Care Provider + Teresa Chiu RN Unavailable Unavaila Meenu Alves DO Unavailable [phone] Reason for Visit * Reason Comments Chest Pain * Auth/Cert (Routine) Specialty Diagnoses / Procedures Referred By Contac t Referred To Contact Med Surg Diagnoses Hypoxemia Hypertensive urgency Chest pain, unspecified type Pneumonia due to infectious organism, unspecified laterality, unspecified part of lung Chest pain, unspecified type Hypoxemia Pneumonia due to infectious organism, unspecified laterality, unspecified part of lung Hypertensive urgency [facility] Observation Dept [address] [place] [address] Phone: tel: Referral ID Status Reason Start Date Expiration Date Visits Re quested Visits Authorized [id number] 1 1 Encounter Details Date Type Department Care Team (Late st Contact Info) Description 01/12/2024 3:33 AM CDT - 01/13/2024 3:55 PM CDT Hospital Encounter [facility] Observation Dept [address] [place] [address] Adan Irene MD [facility] [address] [place] [address] Marcio Love DO [facility] [address] [place], [place] [id number] Aletha Ca MD [address] [place], [place] [id number] Chest pain, unspecified type; Hypoxemia; Pneumonia due to infectious organism, unspecified laterality, unspecified part of lung; Hypertensive urgency Discharge Disposition: Home or Self Care Social [...] on file 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 Gender Identity Not on file Sexual Orientation Not on file documented as of this encounter Last Filed Vital Signs Vital Sign Reading Time Taken Comments Blood Pressure 174/70 01/13/2024 1:00 PM CDT Pulse 75 01/13/2024 1:00 PM CDT Temperature 36.6 ??C (97.9 ??F) 01/13/2024 1 1:00 AM CDT Respiratory Rate 18 01/13/2024 11:0 0 AM CDT Oxygen Saturation 95% 01/13/2024 11: 00 AM CDT Inhaled Oxygen Concentration - - Weight 53.5 kg (117 lb 14.4 oz) 024 11:14 AM CDT Height 147.3 cm (4' 10) 01/12/2024 11: 14 AM CDT Body Mass Index 24.64 01/12/2024 11:14 AM CDT documented in this encounter Discharge Summaries * Brown Campos MD - 01/13/2024 3:22 PM CDT [facility] Hospitalist Discharge Summary Date of Admission: 01/12/2024 Date of Discharge: 01/13/2024 Discharging Provider: Brown Campos MD Discharge Service: Hospitalist Service Discharge Diagnoses Chest pain Hypertensive urgency Clinically Significant Risk Factors Follow-ups Needed After Discharge Follow-up Appointments Follow-up and recommended labs and tests Follow up with primary care provider, Loren Beyer, within 7 days for hospital follow- up. The following labs/tests are recommended: follow-up on blood pressures Follow-up with Dr. Denis on Jan 22 as previously scheduled. Please review your blood pressures and medications with her. Unresulted Labs Ordered in the Past 30 Days of this Admission No orders found for last 31 day(s). 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 I saw the patient with her in the room. She is feeling better. Her chest pain is gone. I feel like her pain was likely due to her elevated blood pressures. She states she runs around 130-160 systolic at home. The blood pressure she came in with her higher than hernormal. On history she states she uses her nitroglycerin sometimes 3 times a week. She does have an appointment with Dr. Denis on 22 January. I discussed with her and her adjusting some of her medications to better control her blood pressure. I tried to reach out to her cardiology care team, but they are likely busy. I have increased her Toprol from 25 mg daily to 50 mg daily. Her bloodpressures are better. Again her symptoms are gone. She is able to discharge home. She will record her blood pressures at home and take this log to her appointment with cardiology in a week and a half. At that time they can discuss whether or not she would benefit from being on a long acting nitroglycerin. In terms of the possible pneumonia seen on CT scan. Patient denies any symptoms. She does not thinkshe has pneumonia. I doubt she has a pneumonia. There was a low suspicion on admission as well. Shehas multiple allergies to multiple different antibiotics. She is hesitant to take anything. I do not think she needs to complete any more antibiotics. She will again discharge home. In terms of the thyroid nodule seen incidentally on her CT scan, she states she already knows she has some type of lump . She states she had an ultrasound in the past. I reviewed her chart. She didhave an ultrasound in the past that did show a nodule. She can follow-up with this as an outpatient. Consultations This Hospital Stay None Code Status No CPR- Do NOT Intubate Time Spent on this Encounter I, Brown Campos MD, personally saw the patient today and spent greater than 30 minutes discharging this patient. Brown Campos MD [facility] OBSERVATION DEPT [facility] [place] [facility] [address] Physical Exam Vital Signs: Temp: 97.9 ??F (36.6 ??C) Temp src: Oral BP: (!) 174/70 Pulse: 75 Resp: 18 SpO2: 95 % O2 Device: None (Room air) Weight: 117 lbs 14.4 oz Constitutional: awake, alert, cooperative, no apparent distress, and appears stated age Eyes: Lids and lashes normal, pupils equal, round and reactive to light, extra ocular muscles intact, sclera clear, conjunctiva normal ENT: Normocephalic, without obvious abnormality, atraumatic, sinuses nontender on palpation, external ears without lesions, oral pharynx with moist mucous membranes, tonsils without erythema or exudates, gums normal and good dentition. Respiratory: No increased work of breathing, good air exchange, clear to auscultation bilaterally, no crackles or wheezing Cardiovascular: Normal apical impulse, regular rate and rhythm, normal S1 and S2, no S3 or S4, and no murmur noted GI: No scars, normal bowel sounds, soft, non-distended, non-tender, no masses palpated, no hepatosplenomegally Primary Care Physician Loren Beyer Discharge Orders Reason for your hospital stay Chest pain Elevated blood pressures Follow-up and recommended labs and tests Follow up with primary care provider, Loren Beyer, within 7 days for hospital follow- up. The following labs/tests are recommended: follow-up on blood pressures Follow-up with Dr. Denis on Jan 22 as previously scheduled. Please review your blood pressures andmedications with her. Activity Your activity upon discharge: activity as tolerated Diet Follow this diet upon discharge: Current Diet:Orders Placed This Encounter Regular Diet Adult Significant Results and Procedures Most Recent 3 CBC's: Recent Labs Lab Test 01/13/24 0539 01/12/24 0339 WBC 11.6* 12.2* HGB 10.2* 9.9* MCV 79 79 PLT 224 206 Most Recent 3 BMP's: Recent Labs Lab Test 01/13/24 0539 01/12/24 1741 01/12/24 0339 11/28/23 0930 09/05/23 0945 05/02/23 0954 NA 137 -- 134* -- -- 141 POTASSIUM 3.6 -- 3.6 -- -- 4.6 CHLORIDE 103 -- 99 99 < > 102 CO2 24 -- 24 -- -- 30* BUN 15.1 -- 16.4 -- -- 16.5 CR 0.83 -- 0.92 -- -- 0.89 ANIONGAP 10 -- 11 -- -- 9 KARY 8.9 -- 8.9 -- -- 9.3 GLC 146* 285* 129* -- -- 165* < > = values in this interval not displayed. Most Recent 2 LFT's:No lab results found., Results for orders placed or performed during the hospital encounter of 01/12/24 CT Chest Pulmonary Embolism w Contrast Narrative EXAM: CT CHEST PULMONARY EMBOLISM W CONTRAST LOCATION: [facility] DATE: 01/12/2024 INDICATION: left anterior chest [...] to 1.5 cm: Evaluate with thyroid ultrasound. Echocardiogram Complete Value LVEF 60-65% [facility] [id number]^PREETHI^JENISE^GIOVANY [facility] Echocardiography Laboratory [address] [place] [address] Name: FAWAD UNGER : 1935 Study Date: 01/12/2024 12:54 PM Age: 88 yrs Gender: Female Patient Location: [facility] Reason For Study: CAD Ordering [...] approved by: Misha Rodrigues 01/12/2024 03:51 PM Discharge Medications Current Discharge Medication List CONTINUE these medications which have CHANGED Details metoprolol succinate ER (TOPROL XL) 25 MG 24 hr tablet Take 2 tablets (50 mg) by mouth daily. CONTINUE these medications which have NOT CHANGED Details albuterol (PROAIR HFA, PROVENTIL HFA, VENTOLIN HFA) 108 (90 BASE) MCG/ACT inhaler Inhale 2 puffs into the lungs 2 times daily. Take before alvesco calcium carbonate (TUMS) 500 MG chewable tablet Take 500 mg by mouth as needed for heartburn calcium-vitamin D (CALTRATE) 600-400 MG-UNIT per tablet Take 1 tablet by mouth daily chlorpheniramine (CHLOR-TRIMETON) 4 MG tablet Take 2 mg by mouth as needed. ciclesonide (ALVESCO) 160 MCG/ACT inhaler Inhale 2 puffs into the lungs 2 times daily. Take after albuterol cloNIDine (CATAPRES) 0.1 MG tablet Take 0.05 mg by mouth 2 times daily Pt takes 1/2 tablet (0.05 mg) BID (AM & PM) and an additional 1/2 tablet (0.05 mg) PRN clopidogrel (PLAVIX) 75 MG tablet Take 75 mg by mouth daily. ezetimibe (ZETIA) 10 MG tablet Take 1 tablet by mouth daily lactase (LACTAID) 3000 UNIT tablet Take 3,000 Units by mouth as needed for indigestion. levothyroxine (SYNTHROID/LEVOTHROID) 25 MCG tablet Take 25 mcg by mouth every morning LORazepam (ATIVAN) 0.5 MG tablet Take 0.5 mg by mouth as needed losartan (COZAAR) 25 MG tablet Take 25 mg by mouth 2 times daily multivitamin, therapeutic with minerals (MULTI-VITAMIN) TABS [...] times daily as needed for dry eyes. predniSONE (DELTASONE) 5 MG tablet Take 5 mg by mouth every morning sertraline (ZOLOFT) 50 MG tablet Take 50 mg by mouth every evening sodium chloride (OCEAN) 0.65 % nasal spray Marty 1 spray in nostril daily as needed for congestion. FLOVENT HFA 110 MCG/ACT inhaler Inhale 2 puffs into the lungs 2 times daily Allergies Allergies Allergen Reactions Food Any contact with [...] Petroleum based salves and lotions cause rash documented in this encounter Medications at Time of Discharge albuterol (PROAIR HFA, PROVENTIL HFA, VENTOLIN HFA) 108 (90 BASE) MCG/ACT inhaler Inhale 2 puffs into the lungs 2 times daily. Take before alvesco calcium carbonate (TUMS) 500 MG chewable tablet Take 500 mg by mouth as needed for heartburn calcium-vitamin D (CALTRATE) 600-400 MG-UNIT per tablet Take 1 tablet by mouth daily chlorpheniramine (CHLOR-TRIMETON) 4 MG tablet Take 2 mg by mouth as needed. 02/23/2022 ciclesonide (ALVESCO) 160 MCG/ACT inhaler Inhale 2 puffs into the lungs 2 times daily. Take after albuterol cloNIDine (CATAPRES) 0.1 MG tablet Take 0.05 mg by mouth 2 times daily Pt takes 1/2 tablet (0.05 mg) BID (AM & PM) and an additional 1/2 tablet (0.05 mg) PRN 01/27/2023 clopidogrel (PLAVIX) 75 MG tablet Take 75 mg by mouth daily. 01/06/2023 ezetimibe (ZETIA) 10 MG tablet Take 1 tablet by mouth daily 01/06/2023 FLOVENT HFA 110 MCG/ACT inhaler Inhale 2 puffs into the lungs 2 times daily 02/21/2023 lactase (LACTAID) 3000 UNIT tablet Take 3,000 Units by mouth as needed for indigestion. levothyroxine (SYNTHROID/LEVOTH ROID) 25 MCG tablet Take 25 mcg by mouth every morning 12/20/2022 LORazepam (ATIVAN) 0.5 MG tablet Take 0.25 mg by mouth as needed. 04/30/2022 metoprolol succinate ER (TOPROL XL) 25 MG 24 hr tablet Take 2 tablets (50 mg) by mouth daily. 01/13/2024 multivitamin, therapeutic with minerals (MULTI-VITAMIN) TABS Take 1 tablet by mouth daily nitroGLYcerin (NITROSTAT) 0.[address] 0.4 mg under the tongue every 5 minutes as needed omeprazole (PRILOSEC) [address] capsule Take 40 mg by mouth daily. polyethylene glycol-propylene glycol (SYSTANE) 0.4-0.3 % SOLN ophthalmic solution Place 1 drop into both eyes 4 times daily as needed for dry eyes. predniSONE (DELTASONE) 5 MG tablet Take 5 mg by mouth every morning 12/20/2022 sertraline (ZOLOFT) 50 MG tablet Take 50 mg by mouth every evening 02/09/2023 sodium chloride (OCEAN) 0.65 % nasal spray Marty 1 spray in nostril daily as needed for congestion. 01/28/2022 losartan (COZAAR) 25 MG tablet Take 25 mg by mouth 2 times daily 4 documented as of this encounter Progress Notes * Mela Sage RN - 01/13/2024 8:00 AM CDT Paged MD for c/o chest pain that began shortly after I woke her up to start IV antibiotics, states doesn't like getting more medications and especially antibiotics , I explained the type and gave me a go ahead to start the infusion though still with slight pain and looked anxious.then asked me to give nitroglycerin. MD came immediately. Given Nitroglycerinx3 total and Ativan for anxiety. EKG done.Reports improvement. To continue with plan of care. * Aletha Ca MD - 01/13/2024 6:40 AM CDT Cross Cover Called for acute onset chest pain like her previous heart attack. She has single vessel RCA dz withDES placed roughly a year ago. This happens several times per week and resolves with NTG. She is not on aspirin due to hx of asthma and remains on clopidogrel On arrival looks distressed, blotchy flushing across face Ntg given x 2 with improvement in sx although still feeling anxious and stressed Given lorazepam 0.25 x 1 EKG completed and without ischemic changes CK trop x 2 Stopped ceftriaxone, states the only abx she an reliably take is oral azithromycin-although got nauseated with IV azith yesterday. Although in discussion with RN sx began prior to the start of the infusion. Stopped abx at this juncture. Consider trial of it later today or just treat with oral azith as she's tolerated it in the past Should really consider long acting nitrate * Ailin Garrido RN - 01/12/2024 9:52 [...] Nolan RN - 01/12/2024 10:48 AM CDT [facility] ED Boarding Nurse Handoff Addendum Report: Date/time: [...] from the original note were not included. [facility] Hospitalist Progress Note Name: Fawad Unger [...] (SYNTHROID/LEVOTHROID) tablet 25 mcg 25 mcg Oral QAM Aletha Ca MD losartan (COZAAR) tablet 25 mg 25 [...] (DELTASONE) tablet 5 mg 5 mg Oral QAM Aletha Ca MD sertraline (ZOLOFT) tablet 50 mg 50 [...] Asymptomatic COVID-19 Virus (Coronavirus) by PCR Nasopharyngeal [[id number]] Swab from Nasopharyngeal Final result Component Value [...] CT CHEST PULMONARY EMBOLISM W CONTRAST LOCATION: [facility] DATE: 01/12/2024 INDICATION: left anterior chest [...] year old female with a history of htn/hlp/J1zg-xdvd controlled, CAD -stemi in 12/2022 single vessels dz with RCA 80 % stenosed s/p ARI, most recent echo 04/07 EF 60-65 % G1dd, asthma, hypothyroidism, depression with anxiety, chronic idiopathic urticaria/eczema on daily prednisone, hyponatremia admitted on 01/12/2024 with stabbing chest pain and ? 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 Panel Laminator is on losartan 25 mg bid, clonidine [...] med rec complete Chronic idiopathic urticaria/eczema Cont dining room captain prednisone 5 mg every day Depression w/anxiety Resumed dining room captain sertraline and prn lorazepam Hyponatremia She [...] year old female with a history of htn/hlp/M2pz-ievk controlled, CAD -stemi in 12/2022 single vessels dz with RCA 80 % stenosed s/p ARI, most recent echo 04/07 EF 60-65 % G1dd, asthma, hypothyroidism, depression with anxiety, chronic idiopathic urticaria/eczema on daily prednisone, hyponatremia admitted on 01/12/2024 with stabbing chest pain and ? 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 Procedure Abnormality Status --------- ------ Extra Blue Top Tube[[id number]] Final result Extra Red Top Tube[[id number]] Final result Please view results for these [...] the Xpert Xpress SARS-CoV-2 Assay on the [employer]. Additional information about this Emergency [...] COVID-19. This test was validated by the [facility]. This laboratory is certified under the Clinical Laboratory Improvement Amendments (CLIA) as qualified to perform high complexity laboratory testing. EKG 12 lead Status: None Result Value Ref Range Systolic Blood Pressure mmHg Diastolic Blood Pressure mmHg Ventricular Rate 68 BPM Atrial Rate 68 BPM TN Interval 172 ms QRS Duration 76 ms QT 388 ms QTc 412 ms P [place] 50 degrees R AXIS -34 degrees T [place] 13 degrees Interpretation ECG Sinus rhythm Left axis deviation Anterior infarct , age undetermined Abnormal ECG No previous ECGs available Unconfirmed report - interpretation of this ECG is computer generated - see medical record for final interpretation Confirmed by - EMERGENCY ROOM, PHYSICIAN ([id number]), editor index GONZALEZ GAVIRIA ([id number]) on 01/12/2024 6:48:00AM CBC with Platelets & Differential Status: Abnormal Narrative The following orders were created for panel order CBC with Platelets & Differential. Procedure Abnormality Status --------- ------ CBC with platelets and d...[[id number]] Abnormal Final result Please view results for [...] Ramirez RN - 01/12/2024 5:30 AM CDT [facility] ED Nurse Handoff Report ED Chief complaint: [...] bed. Lift room needed: No. Bariatric: No Glove Parts Cutter Needed: No Isolation: No. Infection: Not Applicable. [...] 1,000 mg (1,000 mg Oral $Given 01/12/24 9593) CT scan flush (72 mLs Intravenous $Given 01/12/24 0594) iopamidol (ISOVUE-370) solution 500 mL (51 mLs Intravenous $Given 01/12/24 8025) Drips infusing: No For the majority of the shift this patient was Green. Interventions performed were n/a. Sepsis treatment initiated: No Cares/treatment/interventions/medications to be completed following ED care: n/a ED Nurse Name: Nargis Santana RN 5:30 AM RECEIVING UNIT ED HANDOFF REVIEW Above ED Nurse Handoff Report was reviewed: Yes Reviewed by: Chuyita Ramirez RN on January 12, 2024 at 10:20 AM I Vocera called the ED to inform them the note was read: Yes * Nerissa Dudley - 01/12/2024 5:15 AM CDT As patient slept, oxygen destated to 84%-87%, nasal cannula placed with 2L of oxygen * Nargis Santana RN - 01/12/2024 5:04 AM CDT Pt refusing automatic blood pressure and states it makes me anxious how tight it is and it goes higher, and at [facility] they only do manuals, so I wont [...] 96 % -- -- 01/12/24 0355 (!) 200/ -- -- 73 15 90 % -- -- 01/12/24 0345 -- -- -- 66 21 95 % -- -- 01/12/24 0344 (!) 187/ -- -- 64 15 93 % -- -- 08/29/24 0335 (!) 192/85 98.4 ??F (36.9 ??C) [...] Pressure Ventricular Rate 68 Atrial Rate 68 TN Interval 172 QRS Duration 76 QT 388 QTc 412 P [place] 50 R AXIS -34 T [place] 13 Interpretation ECG Sinus rhythm Left axis [...] date: Expected time: Means of arrival: Comments: [place] 335 documented in this encounter Miscellaneous Notes * Utilization Review - Armaan Loja MD - 01/13/2024 3:55 PM CDT Admission Status; Secondary Review Determination As part of the [facility] Utilization review plan, a self-audit is done on Medicare inpatient admission with less than 2 midnights stay. The 2014 IPPS Final Rule allows outpatient billing in the event that a hospital determines that an inpatient admission was not medically necessary under utilizationreview process. (x) Outpatient status would be Appropriate- Short Stay- Post discharge review. RATIONALE FOR DETERMINATION Fawad Unger is a 88 year old female with a history of htn/hlp/E6id-ldcu controlled, CAD -stemi in 12/2022 single vessels dz with RCA 80 % stenosed s/p ARI, most recent echo 04/07 EF 60-65 % G1dd, asthma, hypothyroidism, depression with anxiety, chronic idiopathic urticaria/eczema on daily prednisone, hyponatremia admitted on 01/12/2024 with stabbing chest pain. ER evaluation was notable for hypertension in the 200-220/70-90's. HR 60's. Respiratory status was notable for some hypoxia in the mid 80's. Exam-lungs are clear BMP with hyponatremia 134 CBC leukocytosis 12.2 with monocytosis and neutrophilia Trop 18->18 EKG NSR without ischemic findings CT PE: No PE. Multifocal reticulonodular infiltrates lingula/bibasilar atelectasis or infiltrate: ?Pna vs atypical infection. Also noted to have some wall thickening of the splenic flexure with mildadjacent inflammation-focal colitis vs diverticulitis. 3.6 thyroid nodule She was admitted for further evaluation. Chest pain and hypoxia resolved with control of blood pressure. Pneumonia was not suspected. She discharged on hospital day one with diagnoses of chest pain and hypertensive urgency. This account and medical record number for a Medicare beneficiary was an inpatient short stay (<2 midnights) and didn't meet medical necessity for inpatient admission. We recommend billing outpatient services based on the severity of illness, intensity of service provided and the inpatient length of stay. Please contact me within one week of receiving this letter only if you disagree with thisdetermination. If you concur, no further action is needed. The information on this document is developed by the utilization review team in order for the business office to ensure compliance. This only denotes the appropriateness of proper admission status and does not reflect the quality of care rendered. The definitions of Inpatient Status and Observation Status used in making the determination above are those provided in the CMS Coverage Manual, Chapter 1 and Chapter 6, section 70.4. Sincerely, * Plan of Care - Leena Perea RN - 01/13/2024 3:30 PM CDT BP (!) 174/70 (BP Location: Left arm) Pulse 75 Temp 97.9 ??F (36.6 ??C) (Oral) Resp 18 Ht 1.473 m (4' 10) Wt 53.5 kg (117 lb 14.4 oz) SpO2 95% BMI 24.64 kg/m?? Patient's After Visit Summary was reviewed with patient and/or family. Patient verbalized understanding of After Visit Summary, recommended follow up and was given an opportunity to ask questions. Discharge medications sent home with patient/family: No Discharged with significant other, Pt is medically ready to discharge, Pt's all belonging sent withpt, pt's family transporting the pt to home. Problem: Adult Inpatient Plan of Care Goal: Plan of Care Review Description: The Plan of Care Review/Shift note should be completed every shift. The Outcome Evaluation is a brief statement about your assessment that the patient is improving, declining, or no change. This information will be displayed automatically on your shift note. 01/13/2024 152 by Leena Perea RN Outcome: Met Flowsheets Taken 01/13/2024 152 Outcome Evaluation: discharging Plan of Care Reviewed With: patient Overall Patient Progress: improving Taken 01/13/2024 1047 Plan of Care Reviewed With: patient Overall Patient Progress: improving 01/13/2024 1047 by Leena Perea RN Outcome: Progressing Flowsheets (Taken 01/13/2024 104) Plan of Care Reviewed With: patient Overall Patient Progress: improving Goal: Patient-Specific Goal (Individualized) Description: You can add care plan individualizations to a care plan. Examples of Individualizationmight be: Parent requests to be called daily at 9am for status, I have a hard time hearing out of my right ear, or Do not touch me to wake me up as it startles me. 01/13/2024 1529 by Leena Perea RN Outcome: Met 01/13/2024 1047 by Leena Perea RN Outcome: Progressing Goal: Absence of Hospital-Acquired Illness or Injury 01/13/2024 1529 by Leena Perea RN Outcome: Met 01/13/2024 1047 by Leena Perea RN Outcome: Progressing Intervention: Identify and Manage Fall Risk Recent Flowsheet Documentation Taken 01/13/2024 1000 by Leena Perea RN Safety Promotion/Fall Prevention: activity supervised clutter free environment maintained Intervention: Prevent Skin Injury Recent Flowsheet Documentation Taken 01/13/2024 1000 by Leena Perea RN Body Position: position changed independently Intervention: Prevent Infection Recent Flowsheet Documentation Taken 01/13/2024 1000 by Leena Perea RN Infection Prevention: hand hygiene promoted Goal: Optimal Comfort and Wellbeing 01/13/2024 1529 by Leena Perea RN Outcome: Met 01/13/2024 1047 by Leena Perea RN Outcome: Progressing Goal: Readiness for Transition of Care 01/13/2024 1529 by Leena Perea RN Outcome: Met 01/13/2024 1047 by Leena Perea RN Outcome: Progressing Problem: Pain Acute Goal: Optimal Pain Control and Function 01/13/2024 1529 by Leena Perea RN Outcome: Met 01/13/2024 1047 by Leena Perea RN Outcome: Progressing Intervention: Prevent or Manage Pain Recent Flowsheet Documentation Taken 01/13/2024 1000 by Leena Perea RN Medication Review/Management: medications reviewed Problem: Fall Injury Risk Goal: Absence of Fall and Fall-Related Injury 01/13/2024 1529 by Leena Perea RN Outcome: Met 01/13/2024 1047 by Leena Perea RN Outcome: Progressing Intervention: Identify and Manage Contributors Recent Flowsheet Documentation Taken 01/13/2024 1000 by Leena Perea RN Medication Review/Management: medications reviewed Intervention: Promote Injury-Free Environment Recent Flowsheet Documentation Taken 01/13/2024 1000 by Leena Perea RN Safety Promotion/Fall Prevention: activity supervised clutter free environment maintained Problem: Infection Goal: Absence of Infection Signs and Symptoms 01/13/2024 1529 by Leena Perea RN Outcome: Met 01/13/2024 1047 by Leena Perea RN Outcome: Progressing Goal Outcome Evaluation: Plan of Care Reviewed With: patient Overall Patient Progress: improvingOverall Patient Progress: improving Outcome Evaluation: discharging * Plan of Care - Leena Perea RN - 01/13/2024 10:47 AM CDT Goal Outcome Evaluation: Plan of Care Reviewed With: patient Overall Patient Progress: improvingOverall Patient Progress: improving BP (!) 178/80 (BP Location: Left arm) Pulse 74 Temp 97.8 ??F (36.6 ??C) (Oral) Resp 20 Ht 1.473 m (4' 10) Wt 53.5 kg (117 lb 14.4 oz) SpO2 94% BMI 24.64 kg/m?? Pt A&O x 4 with some confusion and agitation, able to make needs known, call light with in reach for needs, no chest pain reported this shift, SL, continuously hypertensive but managed with scheduled med's, last troponin was 17. Plan is to discharge today. Problem: Adult Inpatient Plan of Care Goal: Plan of Care Review Description: The Plan of Care Review/Shift note should be completed every shift. The Outcome Evaluation is a brief statement about your assessment that the patient is improving, declining, or no change. This information will be displayed automatically on your shift note. Outcome: Progressing Flowsheets (Taken 01/13/2024 1047) Plan of Care Reviewed With: patient Overall Patient Progress: improving Goal: Patient-Specific Goal (Individualized) Description: You can add care plan individualizations to a care plan. Examples of Individualizationmight be: Parent requests to be called daily at 9am for status, I have a hard time hearing out of my right ear, or Do not touch me to wake me up as it startles me. Outcome: Progressing Goal: Absence of Hospital-Acquired Illness or Injury Outcome: Progressing Intervention: Identify and Manage Fall Risk Recent Flowsheet Documentation Taken 01/13/2024 1000 by Leena Perea RN Safety Promotion/Fall Prevention: activity supervised clutter free environment maintained Intervention: Prevent Skin Injury Recent Flowsheet Documentation Taken 01/13/2024 1000 by Leena Perea RN Body Position: position changed independently Intervention: Prevent Infection Recent Flowsheet Documentation Taken 01/13/2024 1000 by Leena Perea RN Infection Prevention: hand hygiene promoted Goal: Optimal Comfort and Wellbeing Outcome: Progressing Goal: Readiness for Transition of Care Outcome: Progressing Problem: Pain Acute Goal: Optimal Pain Control and Function Outcome: Progressing Intervention: Prevent or Manage Pain Recent Flowsheet Documentation Taken 01/13/2024 1000 by Leena Perea RN Medication Review/Management: medications reviewed Problem: Fall Injury Risk Goal: Absence of Fall and Fall-Related Injury Outcome: Progressing Intervention: Identify and Manage Contributors Recent Flowsheet Documentation Taken 01/13/2024 1000 by Leena Perea RN Medication Review/Management: medications reviewed Intervention: Promote Injury-Free Environment Recent Flowsheet Documentation Taken 01/13/2024 1000 by Leena Perea RN Safety Promotion/Fall Prevention: activity supervised clutter free environment maintained Problem: Infection Goal: Absence of Infection Signs and Symptoms Outcome: Progressing * Plan of Care - Mela Sage RN - 01/13/2024 4:59 AM CDT Pt alert and orientedx3. Intermittent confusion. Independent. Refuses safety precautions. PIV -SL. On IV Rocephin. RA Problem: Adult Inpatient Plan of Care Goal: Plan of Care Review Description: The Plan of Care Review/Shift note should be completed every shift. The Outcome Evaluation is a brief statement about your assessment that the patient is improving, declining, or no change. This information will be displayed automatically on your shift note. Outcome: Progressing Flowsheets (Taken 01/13/2024 0457) Outcome Evaluation: pt alert and orientedx3. intermittent confusion.no nausea and vomiting reported Plan of Care Reviewed With: patient Overall Patient Progress: improving Goal: Patient-Specific Goal (Individualized) Description: You can add care plan individualizations to a care plan. Examples of Individualizationmight be: Parent requests to be called daily at 9am for status, I have a hard time hearing out of my right ear, or Do not touch me to wake me up as it startles me. Outcome: Progressing Goal: Absence of Hospital-Acquired Illness or Injury Outcome: Progressing Intervention: Identify and Manage Fall Risk Recent Flowsheet Documentation Taken 01/13/2024 0124 by Mela Sage RN Safety Promotion/Fall Prevention: activity supervised clutter free environment maintained Intervention: Prevent Skin Injury Recent Flowsheet Documentation Taken 01/13/2024123 by Mela Sage RN Body Position: position changed independently Intervention: Prevent Infection Recent Flowsheet Documentation Taken 01/13/2024123 by Mela Sage RN Infection Prevention: rest/sleep promoted Goal: Optimal Comfort and Wellbeing Outcome: Progressing Goal: Readiness for Transition of Care Outcome: Progressing Problem: Pain Acute Goal: Optimal Pain Control and Function Outcome: Progressing Intervention: Prevent or Manage Pain Recent Flowsheet Documentation Taken 01/13/2024123 by Mela Sage RN Medication Review/Management: medications reviewed Problem: Fall Injury Risk Goal: Absence of Fall and Fall-Related Injury Outcome: Progressing Intervention: Identify and Manage Contributors Recent Flowsheet Documentation Taken 01/13/2024123 by Mela Sage RN Medication Review/Management: medications reviewed Intervention: Promote Injury-Free Environment Recent Flowsheet Documentation Taken 01/13/2024123 by Mela Sage RN Safety Promotion/Fall Prevention: activity supervised clutter free environment maintained Problem: Infection Goal: Absence of Infection Signs and Symptoms Outcome: Progressing Goal Outcome Evaluation: Plan of Care Reviewed With: patient Overall Patient Progress: improvingOverall Patient Progress: improving Outcome Evaluation: pt alert and orientedx3. intermittent confusion.no nausea and vomiting reported * Plan of Care - Ailin Garrido [...] gastric pain with nausea. Emesis prvided by computer systems support specialist. IVP Ondanesteron provided due to PT request [...] for discharge by consultants (if involved): No Pharmacy Benefit Manager Nurse Safe discharge environment identified: Yes Barriers [...] - 01/12/2024 11:47 AM CDT ROOM # [facility] Living Situation (if not independent, order SW consult): Facility name: manager personnel selection: Amarjit Activity level at baseline: ind Activity [...] via in-person Pertinent Information: Changes made to RN LABOR AND DELIVERY medication list: Added: alvesco inh Deleted: None Changed: prednisone, chlorpheniramine Allergies reviewed with patient and updates made in EHR: yes Medication History Completed By: Bruna Bacon [facility] 01/12/2024 8:30 AM RN LABOR AND DELIVERY Med List Medication Sig Last Dose albuterol [...] sodium chloride (OCEAN) 0.65 % nasal spray Marty 1 spray in nostril daily as needed for congestion. documented in this encounter Plan of Treatment Not on file documented as of this encounter Procedures Procedure Name Priority Date/Time Associated Diagnosis Comments TROPONIN T, HIGH SENSITIVITY STAT 01/13/2024 11:12 AM CDT TROPONIN T, HIGH SENSITIVITY STAT 01/13/2024 6:51 AM CDT EKG 12-LEAD, TRACING ONLY STAT 01/13/2024 6:35 AM CDT BASIC METABOLIC PANEL Routine 01/13/2024 5:39 AM CDT CBC WITH PLATELETS Routine 01/13/2024 5: 39 AM CDT GLUCOSE BY METER Routine 01/12/2024 [...] documented in this encounter Results * (ABNORMAL) Troponin T, High Sensitivity (01/13/2024 11:12 AM CDT) [facility] Troponin T, High Sensitivity 20(H) <=14 ng/L [...] 11:12 AM CDT 01/13/2024 11:17 AM CDT Aletha Ca MD LAB - BLOOD ORDERABLES Final Res ult Performing Organization Address City/[facility]/ZIP Co de Phone Number [facility] Lab [address] Lab (1st floor, no room number) [place] [address] * (ABNORMAL) Troponin T, High Sensitivity (01/13/2024 6:51 AM CDT) [facility] Troponin T, High Sensitivity 17(H) <=14 ng/L 01/13/2024 7:19 AM CDT LABORATORY Comment: Either a High [...] LIMB / Unknown Venipuncture / Unknown 01/13/2024 6:51 AM CDT 01/13/2024 6:57 AM CDT us Aletha Ca MD LAB - BLOOD ORDERABLES Final Res ult Performing Organization Address City/[facility]/ZIP Co de Phone Number [facility] Lab [address] Lab (1st floor, no room number) [place] [address], [facility] * EKG 12-lead, tracing only (01/13/2024 6:35 AM CDT) Systolic Blood Pressure mmHg RADIOLOGY RESULTS Diastolic Blood Pressure mmHg RADIOLOGY RESULTS Ventricular Rate 79 BPM RAD IOLOGY RESULTS Atrial Rate 79 BPM RADIOLOG Y RESULTS TN Interval 176 ms RADIOLOG Y RESULTS QRS Duration 90 ms RADIOLO GY RESULTS QT 388 ms RADIOLOGY RESULTS QTc 444 ms RADIOLOGY RESULTS P [place] 40 degrees RADIOLOGY RESULTS R AXIS -41 degrees RADIOLOGY RESULTS T [place] 14 degrees RADIOLOGY RESULTS Interpretation ECG Sinus [...] Result - Final RADIOLOGY RESULTS * (ABNORMAL) CBC with platelets (01/13/2024 5:39 [...] - 15.0 % 01/13/2024 5:51 AM CDT LABORATORY Platelet Count 224 150 - 450 10e3/uL 01/13/2024 5:51 AM CDT LABORATORY Blood STRUCTURE OF RIGHT HAND / Unknown Venipuncture / Unknown 01/13/2024 5:39 AM CDT 01/13/2024 5:49 AM CDT us Aletha Ca MD LAB - BLOOD ORDERABLES Final Res ult RH LABORATORY [facility] Acute Care Lab [address] Lab (1st floor, no room number) [place] [address], [facility] * (ABNORMAL) Basic metabolic panel (01/13/2024 5:39 AM CDT) Sodium 137 135 - 145 mmol/L 01/13/2024 [...] - 23.0 mg/dL 01/13/2024 6:15 AM CDT LABORATORY Creatinine 0.83 0.51 - 0.95 mg/dL 01/13/2024 6:15 AM CDT LABORATORY GFR Estimate 68 >60 mL/min/1.7 3m2 01/13/2024 6:15 AM CDT LABORATORY Comment:eGFR calculated usin 2020 CKD-EPI equation. Calcium 8.9 8.8 - 10.4 mg/dL 01/13/2024 6:15 AM CDT LABORATORY Comment:Reference intervals for this test were updated on 11/29/2023 to reflect our healthy population more accurately. There may be differences in the flagging of prior results with similar values performed with this method. Those prior results can be interpreted in the context of the updated reference intervals. Glucose 146(H) 70 - 99 mg/dL 01/13/2024 6:15 AM CDT LABORATORY Blood STRUCTURE OF RIGHT HAND / Unknown Venipuncture / Unknown 01/13/2024 5:39 AM CDT 01/13/2024 5:49 AM CDT Aletha Ca MD LAB - BLOOD ORDERABLES Final Res ult [facility] Lab [address] [facility] Lab (1st floor, no room number) [place] [address] * (ABNORMAL) Glucose by meter (01/12/2024 5:41 PM CDT) GLUCOSE BY METER POCT 285(H) 70 - 99 mg/dL 01/12/2024 5:50 PM CDT LABORATORY POC Blood, Capillary BLOOD SPECIMEN / Unknown 01/12/2024 5:41 PM CDT 01/12/2024 5:50 PM CDT us Aletha Ca MD LAB - BEAKER POCT Final Result Performing Organization Address City/[facility]/ZIP Co de Phone Number LABORATORY [facility] Lab [address] [facility] Lab (1st floor, no room number) [place] [address] * ECHO COMPLETE (01/12/2024 1:38 PM CDT) LVEF 60-65% CARDIOLOGY RESULTS Anatomical Region Laterality Modality Echocardiography 01/12/2024 12:5 4 PM CDT Narrative 01/12/2024 3:51 PM CDT [id number]^PREETHI^JENISE^GIOVANY [facility] Echocardiography Laboratory [address] [place] [address] Name: FAWAD UNGER : 1935 Study Date: 01/12/2024 12:54 PM Age: 88 yrs Gender: Female Patient Location: [facility] Reason For Study: CAD Ordering [...] Procedure Note Yaakov Bhandari MD - 01/12/2024 [id number]^PREETHI^JENISE^GIOVANY [facility] Echocardiography Laboratory [address] [place] [id number] Name: FAWAD UNGER : 1935 Study Date: 01/12/2024 12:54 PM Age: 88 yrs Gender: Female Patient Location: [facility] Reason For Study: CAD Ordering [...] by PCR Nasopharyngeal (01/12/2024 5:40 AM CDT) [facility] SARS CoV2 PCR Negative Negative 01/12/2024 6:34 AM CDT LABORATORY Comment:NEGATIVE: SARS-CoV-2 (COVID-19) RNA not detected, presumed negative. Swab NASOPHARYNGEAL STRUCTURE / Unknown Non-blood Collection / Unknown 01/12/2024 5:40 AM CDT 01/12/2024 5:50 AM CDT Narrative LABORATORY - 01/12/2024 6:34 AM CDT Testing was performed using the Xpert Xpress SARS-CoV-2 Assay on the [employer]. Additional information about this Emergency [...] COVID-19. This test was validated by the [facility]. This laboratory is certified under the Clinical Laboratory Improvement Amendments (CLIA) as qualified to perform high complexity laboratory testing. us Adan Irene MD LAB - MICRO GENERAL ORDERABLE S Final Result Performing Organization Address City/[facility]/ZIP Co de Phone Number LABORATORY [facility] Lab [address] Lab (1st floor, no room number) [place] [phone] * TSH with free T4 reflex (01/12/2024 5:26 AM CDT) TSH 2.47 0.30 - 4.20 uIU/mL 01/12/2024 10:06 AM CDT LABORATORY Blood BLOOD SPECIMEN / Unknown Venipuncture / Unknown 01/12/2024 5:26 AM CDT 01/12/2024 5:31 AM CDT Jenise Oro MD LAB - BLOOD ORDERABLES Fi nal Result Performing Organization Address City/[facility]/ZIP Co de Phone Number LABORATORY [facility] Lab [address] Lab (1st floor, no room number) [place] [phone] * Procalcitonin (01/12/2024 5:26 AM CDT) [...] See Procalcitonin Guidance document for more details. [email or web address] Factors that may affect PCT levels (not [...] - BLOOD ORDERABLES Final Res ult LABORATORY [facility] Care Lab [address] [facility] Lab (1st floor, no room number) [place] [address], [facility] * (ABNORMAL) Troponin T, High Sensitivity (now) (01/12/2024 5:26 AM CDT) [facility] Troponin T, High Sensitivity 18(H) <=14 ng/L [...] AM CDT 01/12/2024 5:31 AM CDT us Adan Irene MD LAB - BLOOD ORDERABLES Final Result [facility] [address] [facility] Lab (1st floor, no room number) [place] [address] * CT Chest Pulmonary Embolism w Contrast [...] CT CHEST PULMONARY EMBOLISM W CONTRAST LOCATION: [facility] DATE: 01/12/2024 INDICATION: left anterior chest [...] CT CHEST PULMONARY EMBOLISM W CONTRAST LOCATION: [facility] DATE: 01/12/2024 INDICATION: left anterior chest [...] Tube (01/12/2024 3:39 AM CDT) Hold Specimen [facility] 01/12/2024 4:46 AM CDT LABORATORY Blood BLOOD SPECIMEN / Unknown Venipuncture / Unknown 01/12/2024 3:39 AM CDT 01/12/2024 3:42 AM CDT Adan Irene MD LAB - BLOOD ORDERABLES Final Result LABORATORY [facility] [address] [facility] ([facility], no room number) [place] [address], [facility] * Extra Blue Top Tube (01/12/2024 3:39 AM CDT) Hold Specimen [facility] 01/12/2024 4:46 AM CDT RH LABORATORY Blood BLOOD SPECIMEN / Unknown Venipuncture / Unknown 01/12/2024 3:39 AM CDT 01/12/2024 3:42 AM CDT us Adan Irene MD LAB - BLOOD ORDERABLES Final Result RH LABORATORY [facility] Lab [address] Lab (1st floor, no room number) [place] [address] * (ABNORMAL) CBC with platelets and [...] LAB - BLOOD ORDERABLES Final Result LABORATORY [facility] Lab [address] [facility] Lab (1st floor, no room number) [place] [address] * (ABNORMAL) Troponin T, High Sensitivity (01/12/2024 3:39 AM CDT) [facility] Troponin T, High Sensitivity 18(H) <=14 ng/L 01/12/2024 4:01 AM CDT RH LABORATORY Comment: Either a [...] LAB - BLOOD ORDERABLES Final Result LABORATORY [facility] Lab [address] [facility] Lab (1st floor, no room number) [place] [address], [facility] * (ABNORMAL) Basic metabolic panel (01/12/2024 3:39 AM CDT) Sodium 134(L) 135 - 145 mmol/L 01/12/2024 4:01 AM T LABORATORY Potassium 3.6 3.4 - 5.3 mmol/L 01/12/2024 4:01 AM T LABORATORY Chloride 99 98 - 107 mmol/L 01/12/2024 4:01 AM T LABORATORY Carbon Dioxide (CO2) 24 22 - 29 mmol/L 01/12/2024 4:01 AM T LABORATORY Anion Gap 11 7 - 15 mmol/L 01/12/2024 4:01 AM T LABORATORY Urea Nitrogen 16.4 8.0 - 23.0 mg/dL 01/12/2024 4:01 AM T LABORATORY Creatinine 0.92 0.51 - 0.95 mg/dL 01/12/2024 4:01 AM T LABORATORY GFR Estimate 60(L) >60 mL/min/1.7 3m2 01/12/2024 4:01 AM T LABORATORY Comment:eGFR calculated usin 2020 CKD-EPI equation. [...] - 99 mg/dL 01/12/2024 4:01 AM CDT RH LABORATORY Blood BLOOD SPECIMEN / Unknown Venipuncture / Unknown 01/12/2024 3:39 AM CDT 01/12/2024 3:42 AM CDT Adan Irene MD LAB - BLOOD ORDERABLES Final Result LABORATORY [facility] Lab [address] Lab (1st floor, no room number) [place] [address] * EKG 12 lead (01/12/2024 3:35 AM CDT) Systolic Blood Pressure mmHg RADIOLOGY RESULTS Diastolic Blood Pressure mmHg RADIOLOGY RESULTS Ventricular Rate 68 BPM RAD IOLOGY RESULTS Atrial Rate 68 BPM RADIOLOG Y RESULTS TN Interval 172 ms RADIOLOG Y RESULTS QRS Duration 76 ms RADIOLO GY RESULTS QT 388 ms RADIOLOGY RESULTS QTc 412 ms RADIOLOGY RESULTS P [place] 50 degrees RADIOLOGY RESULTS R AXIS -34 degrees RADIOLOGY RESULTS T [place] 13 degrees RADIOLOGY RESULTS Interpretation ECG Sinus rhythm Left axis deviation Anterior infarct , age undetermined Abnormal ECG No previous ECGs available Unconfirmed report - interpretation of this ECG is computer generated - see medical record for final interpretation Confirmed by - EMERGENCY ROOM, PHYSICIAN ([id number]), editor index GONZALEZ GAVIRIA ([id number]) on 01/12/2024 6:48:00 AM RADIOLOGY RESULTS 01/12/2024 3:35 AM CDT 01/12/2024 6:48 AM CDT Adan Irene MD ECG ORDERABLES Edited Result - Final RADIOLOGY RESULTS documented in this encounter Visit Diagnoses Diagnosis Chest pain, unspecified type Hypoxemia Pneumonia due to infectious organism, unspecified laterality, unspecified part of lung Hypertensive urgency Unspecified essential hypertension Hypoxemia Hypertensive urgency Unspecified essential hypertension Chest pain, unspecified type Pneumonia due to infectious organism, unspecified laterality, unspecified part of lung documented in this encounter Administered Medications Inactive [...] to exceed 4 grams/day. acetaminophen (TYLENOL) tablet 1,000 mg 1,000 mg, Oral, ONCE, On Paulina 01/12/24 at 0355, For 1 dose, Maximum acetaminophen dose from all sources = 75 mg/kg/day not to exceed 4 gram $Given 01/12/2024 3:53 AM CDT 1,000 mg acetaminophen (TYLENOL) tablet 650 mg 650 mg, [...] if not used within 2 weeks. $Given 01/13/2024 7:52 AM CDT 2 puffs $Given 01/12/2024 4:53 PM CDT 2 puffs $Given 01/12/2024 10:20 AM CDT 2 puffs azithromycin (ZITHROMAX) 500 mg in NS 250 mL intermittent infusion STAT, 500 mg, Intravenous, EVERY 24 HOURS, First dose on Paulina 01/12/24 at 0525, Indications: Community Acquired PneumoniaIndications:Community Acquired Pneumonia $New Bag 01/12/2024 6:07 AM CDT 500 mg azithromycin (ZITHROMAX) tablet 250 mg Routine, 250 mg, Oral, DAILY, First dose on Tue01/14/24 at 0800, For 4 days, Indications: Community Acquired PneumoniaIndications:Community Acquired Pneumonia cefTRIAXone (ROCEPHIN) 1 g vial to attach to NS 100 mL bag for ADULTS or NS 50 mL bag for PEDS STAT, 1 g, Intravenous, EVERY 24 HOURS, First dose on Tue01/13/24 at 0500, Indications: Community Acquired PneumoniaIndications:Community Acquired Pneumonia $New Bag 01/13/2024 5:53 AM CDT 1 g cefTRIAXone (ROCEPHIN) 2 g vial to attach to NS 100 ml bag for ADULTS or NS 50 ml bag for PEDS STAT, 2 g, Intravenous, ONCE, On Paulina 01/12/24 at 0525, For 1 dose, Indications: Community Acquired PneumoniaIndications:Community Acquired Pneumonia $New Bag 01/12/2024 5:44 AM CDT 2 g ciclesonide (ALVESCO) 160 MCG/ACT inhaler 2 puff [...] and if not used within 10 days. $Given 01/13/2024 7:52 AM CDT 2 puffs cloNIDine (CATAPRES) half-tab 0.05 mg 0.05 mg, Oral, 2 TIMES DAILY, First dose on Tue01/12/24 at 0845 $Given 01/13/2024 9:31 AM CDT 0.05 mg $Given 01/12/2024 7:47 PM CDT 0.05 mg $Given 01/12/2024 2:12 PM CDT 0.05 mg clopidogrel (PLAVIX) tablet 75 mg 75 mg, Oral, DAILY, First dose on Tue01/12/24 at 0840 $Given 01/13/2024 9:32 AM CDT 75 mg $Given 01/12/2024 9:44 AM CDT [address] scan flush Intravenous, 100 mL, ONCE, On Tue01/12/24 at 0440, For 1 dose, This entry is for use by Radiology to intermittently used as a flush in patients receiving a CT scan. $Given 01/12/2024 4:45 AM CDT 72 mLs ezetimibe (ZETIA) tablet 10 mg 10 mg, Oral, DAILY, First dose on Paulina 01/12/24 at 0840 $Given 01/13/2024 9:32 AM CDT 10 mg $Given 01/12/2024 11:44 AM CDT 10 mg hydrALAZINE (APRESOLINE) injection 10 mg 10 mg, Intravenous, ONCE, Administer over 1 Minutes, On Tue01/12/24 at 0600, For 1 dose $Given 01/12/2024 6:19 AM CDT 10 mg hydrALAZINE (APRESOLINE) injection 10 mg 10 mg, Intravenous, EVERY 4 HOURS PRN, high blood pressure, give for SBP > 180, Starting on Tue01/12/24 at 1409 $Given 01/12/2024 2:41 PM CDT 10 mg iopamidol (ISOVUE-370) solution 500 mL 500 mL, Intravenous, ONCE, On Tue01/12/24 at 0440, For 1 dose $Given 01/12/2024 4:45 AM CDT 51 mLs lactase (LACTAID) tablet 3,000 Units 3,000 Units, Oral, 3 TIMES DAILY WITH MEALS, First dose on Tue01/12/24 at 0840 $Given 01/13/2024 12:34 PM CDT 3,000 Units $Given 01/13/2024 9:31 AM CDT 3,000 Units $Given 01/12/2024 10:18 AM CDT 3,000 Units levothyroxine (SYNTHROID/LEVOTHROID) tablet 25 mcg 25 mcg, Oral, EVERY MORNING, First dose on Tue01/12/24 at 0845, Separate oral administration of iron- or calcium-containing products and levothyroxine by at least 4 hours. $Given 01/13/2024 9:32 AM CDT 25 mcg $Given 01/12/2024 9:45 AM CDT 25 mcg LORazepam (ATIVAN) half-tab 0.25 mg 0.25 mg, Oral, EVERY 4 HOURS PRN, anxiety, Starting on Tue01/12/24 at 0651, MR x 1 $Given 01/13/2024 8:17 AM CDT 0.25 mg $Given 01/12/2024 12:07 PM CDT 0.25 mg losartan (COZAAR) tablet 25 mg 25 mg, Oral, 2 TIMES DAILY, First dose on [facility] 01/12/24 at 0845 $Given 01/13/2024 9:32 AM CDT 25 mg $Given 01/12/2024 6:00 PM CDT 25 mg $Given 01/12/2024 9:44 AM CDT 25 mg methylPREDNISolone sodium succinate (SOLU-MEDROL) injection 20 mg 20 mg, Intravenous, Administer over 2 Minutes, ONCE, On Tue01/12/24 at 0655, For 1 dose $Given 01/12/2024 8:03 AM CDT 20 mg metoprolol succinate ER (TOPROL XL) 24 hr tablet 25 mg 25 mg, Oral, DAILY, First dose on Tue01/12/24 at 1200, DO NOT CRUSH. Tablet may be split in half along score line. $Given 01/13/2024 12:34 PM CDT 25 mg $Given 01/12/2024 11:44 AM CDT 25 mg metoprolol succinate ER (TOPROL XL) 24 hr tablet 25 mg 25 mg, Oral, ONCE, On Tue01/13/24 at 1400, For 1 dose, DO NOT CRUSH. Tablet may be split in half along score line. $Given 01/13/2024 2:05 PM CDT 25 mg metoprolol succinate ER (TOPROL XL) 24 hr tablet 50 mg 50 mg, Oral, DAILY, First dose (after last modification) on [facility] 01/14/24 at 1200, DO NOT CRUSH. Tablet may be split in half along score line. naloxone (NARCAN) injection 0.2 mg 0.2 mg, Intravenous, EVERY 2 MIN PRN, opioid reversal, Starting on Tue01/13/24 at 0630, Administer intravenous route when available and notify provider when administered. For unintended sedation or respiratory depression if all of the below criteria are met: ~ respiratory rate LESS than or EQUAL to 8. ~SaO2 less than 92% and or/end-tidal CO2 is greater than 50. ~ the patient is receiving an opioid, has unintended sedations assessed as RASS (-3), and is currently not on mechanical ventilation. RASS scale moderate (-3) is movement or eye opening to voice but no eye contact. Patient Monitoring Once the patient has demonstrated a response to the naloxone, continue to monitor respiratory rate, depth, oxygen saturation and end-tidal CO2 (if available) every 15 minutes x 2, then every 30 minutes x 2, then every 1 hour x 1 after each naloxone dose. Consider transfer to ICU if patient respiratory parameters have not improved after 4 naloxone doses. naloxone (NARCAN) injection 0.2 mg 0.2 mg, Intramuscular, EVERY 2 MIN PRN, opioid reversal, Starting on Tue01/13/24 at 0630, Administer intramuscular if an intravenous route is not available and notify provider when administered. For unintended sedation or respiratory depression if all of the below criteria are met: ~ respiratory rate LESS than or EQUAL to 8. ~SaO2 less than 92% and or/end-tidal CO2 is greater than 50. ~ the patient is receiving an opioid, has unintended sedations assessed as RASS (-3), and is currently not on mechanical ventilation. RASS scale moderate (-3) is movement or eye opening to voice but no eye contact. Patient Monitoring Once the patient has demonstrated a response to the naloxone, continue to monitor respiratory rate, depth, oxygen saturation and end-tidal CO2 (if available) every 15 minutes x 2, then every 30 minutes x 2, then every 1 hour x 1 after each naloxone dose. Consider transfer to ICU if patient respiratory parameters have not improved after 4 naloxone doses. naloxone (NARCAN) injection 0.4 mg 0.4 mg, Intravenous, EVERY 2 MIN PRN, opioid reversal, Starting on Tue01/13/24 at 0630, Administer intravenous route when available and notify provider when administered. For unintended sedation or respiratory depression if all of the below criteria are met: ~ respiratory rate LESS than or EQUAL to 8. ~ SaO2 less than 92% and or/end-tidal CO2 is greater than 50. ~ the patient is receiving an opioid, has unintended sedation assessed as RASS (-4) or (-5) and patient is currently not on mechanical ventilation. RASS scale (-4) is deep sedation with no response to voice but movement or eye opening to physical stimulation. RASS scale (-5) is unarousable. Patient Monitoring Once the patient has demonstrated a response to the naloxone, continue to monitor respiratory rate, depth, oxygen saturation and end-tidal CO2 (if available) every 15 minutes x 2, then every 30 minutes x 2, then every 1 hour x 1 after each naloxone dose. Consider transfer to ICU if patient respiratory parameters have not improved after 4 naloxone doses. naloxone (NARCAN) injection 0.4 mg 0.4 mg, Intramuscular, EVERY 2 MIN PRN, opioid reversal, Starting on Tue01/13/24 at 0630, Administer intramuscular if an intravenous route is not available and notify provider when administered. For unintended sedation or respiratory depression if all of the below criteria are met: ~ respiratory rate LESS than or EQUAL to 8. ~ SaO2 less than 92% and or/end-tidal CO2 is greater than 50. ~ the patient is receiving an opioid, has unintended sedation assessed as RASS (-4) or (-5) and patient is currently not on mechanical ventilation. RASS scale (-4) is deep sedation with no response to voice but movement or eye opening to physical stimulation. RASS scale (-5) is unarousable. Patient Monitoring Once the patient has demonstrated a response to the naloxone, continue to monitor respiratory rate, depth, oxygen saturation and end-tidal CO2 (if available) every 15 minutes x 2, then every 30 minutes x 2, then every 1 hour x 1 after each naloxone dose. Consider transfer to ICU if patient respiratory parameters have not improved after 4 naloxone doses. nitroGLYcerin (NITROSTAT) 0.4 MG sublingual tablet Starting on Tue01/13/24 at 0628, For 1 dose, Mela Sage: cabinet override nitroGLYcerin (NITROSTAT) sublingual tablet 0.4 mg 0.4 mg, Sublingual, EVERY 5 MIN PRN, chest pain, Starting on Tue01/13/24 at 0627 $Given 01/13/2024 8:14 AM CDT 0.4 mg ondansetron (ZOFRAN ODT) ODT tab 4 [...] First dose on Tue01/12/24 at 0840 $Given 01/13/2024 9:32 AM CDT 40 mg $Given 01/12/2024 6:07 PM CDT 40 mg [...] $Given 01/12/2024 8:02 AM CDT 17 g predniSONE (DELTASONE) tablet 5 mg 5 mg, Oral, EVERY MORNING, First dose on Tue01/13/24 at 0800 $Given 01/13/2024 9:31 AM CDT 5 mg senna-docusate (SENOKOT-S/PERICOLACE) 8.6-50 MG per tablet 1 tablet 1 tablet, Oral, 2 TIMES DAILY PRN, constipation, Starting on Tue01/12/24 at 0651, If no bowel movement in [...] $Given 01/12/2024 7:47 PM CDT 50 mg documented in this encounter Active and [...] Nolan RN)1653 ($Given - Provider: Ailin Garrido, HEENA)2000 (Not Given - Provider: Ailin Garrido RN - Reason: Order parameters not met) 0752 ($Given - Provider: Shannon Stephen RT) azithromycin (ZITHROMAX) 500 mg in NS 250 mL intermittent infusion (CANCELED) STAT, 500 mg, Intravenous, EVERY 24 HOURS, First dose on [facility] 01/12/24 at 0525, Indications: Community Acquired Pneumonia 0607 ($New Bag - Provider: Nargis Santana RN)0614 (Stopped - Provider: Nargis Santana RN - Comment: pt became very nauseous upon initiation of gtt. gtt stopped and MD notified) 0525 (Canceled Entry - Provider: Britni Meek PA-C - Comment: Automatically canceled at discontinue of medication order) azithromycin (ZITHROMAX) tablet 250 mg Routine, 250 mg, Oral, DAILY, First dose on Tue01/14/24 at 0800, For 4 days, Indications: Community Acquired Pneumonia cefTRIAXone (ROCEPHIN) 1 g vial to attach to NS 100 mL bag for ADULTS or NS 50 mL bag for PEDS (CANCELED) STAT, 1 g, Intravenous, EVERY 24 HOURS, First dose on Tue01/13/24 at 0500, Indications: Community Acquired Pneumonia 0553 ($New Bag - Provider: Mela Sage RN) cefTRIAXone (ROCEPHIN) 2 g vial to attach to NS 100 ml bag for ADULTS or NS 50 ml bag for PEDS (COMPLETED) STAT, 2 g, Intravenous, ONCE, On [facility] 01/12/24 at 0525, For 1 dose, Indications: Community Acquired Pneumonia 0544 ($New Bag - Provider: Nargis Santana RN)0607 (Stopped - Provider: Nargis Santana, RN) ciclesonide (ALVESCO) 160 MCG/ACT inhaler 2 puff 2 puff, Inhalation, 2 TIMES DAILY, First dose (after last reorder) on [facility] 01/12/24 at 2100, Use home supply *Do not use more frequently than twice daily.* Rinse mouth after use. Check the dose counter on the inhaler to ensure there are doses remaining before administering. Prime by spraying into the air 3 times prior to first use and if not used within 10 days. 8352 (Not Given - Provider: Ailin Garrido, HEENA - Reason: Patient/family refused - Comment: Wait til AM dose) 0752 ($Given - Provider: RT Memo) cloNIDine (CATAPRES) half-tab 0.05 mg 0.05 mg, Oral, 2 TIMES DAILY, First dose on [facility] 01/12/24 at 0845 1016 (Not Given - Provider: Isabel Nolan RN - Reason: Patient/family refused)1412 ($Given - Provider: Chuyita Ramirez RN)1947 ($Given - Provider: Ailin Garrido, HEENA) 0931 ($Given - Provider: Leena Perea, HEENA) clopidogrel (PLAVIX) tablet 75 mg 75 mg, Oral, DAILY, First dose on [facility] 01/12/24 at 0840 0944 ($Given - Provider: Isabel Nolan RN) 0932 ($Given - Provider: Leena Perea, HEENA) CT scan flush (CANCELED) Intravenous, 100 mL, [...] 1144 ($Given - Provider: Chuyita Ramirez RN) 0932 ($Given - Provider: Leena Perea RN) hydrALAZINE (APRESOLINE) injection 10 mg (COMPLETED) 10 [...] TIMES DAILY WITH MEALS, First dose on [facility] 01/12/24 at 0840 1018 ($Given - Provider: Isabel Nolan, HEENA)1140 (Not Given - Provider: Chuyita Ramirez RN - Reason: Patient/family refused)1800 (Not Given - Provider: Ailin Garrido RN - Reason: Patient/family refused) 0931 ($Given - Provider: Leena Perea RN)1234 ($Given - Provider: Leena Perea RN) levothyroxine (SYNTHROID/LEVOTHROID) tablet 25 mcg 25 mcg, Oral, EVERY MORNING, First dose on [facility] 01/12/24 at 0845, Separate oral administration of iron- or calcium-containing products and levothyroxine by at least 4 hours. 0945 ($Given - Provider: Isabel Nolan RN) 0932 ($Given - Provider: Leena Perea RN) losartan (COZAAR) tablet 25 mg 25 mg, Oral, 2 TIMES DAILY, First dose on [facility] 01/12/24 at 0845 0944 ($Given - Provider: Isabel Nolan RN)1800 ($Given - Provider: Ailin Garrido RN - Comment: bp; 179/83)2000 (Not Given - Provider: Ailin Garrido RN - Reason: Patient/family refused) 0932 ($Given - Provider: Leena Perea RN) methylPREDNISolone sodium succinate (SOLU-MEDROL) injection 20 mg (COMPLETED) 20 mg, Intravenous, Administer over 2 Minutes, ONCE, On [facility] 01/12/24 at 0655, For 1 dose 0803 ($Given - Provider: Isabel Nolan RN) metoprolol succinate ER (TOPROL XL) 24 hr tablet 25 mg (CANCELED) 25 mg, Oral, DAILY, First dose on [facility] 01/12/24 at 1200, DO NOT CRUSH. Tablet may be split in half along score line. 1144 ($Given - Provider: Chuyita Ramirez RN) 1234 ($Given - Provider: Leena Perea RN) metoprolol succinate ER (TOPROL XL) 24 hr tablet 25 mg (COMPLETED) 25 mg, Oral, ONCE, On Tue01/13/24 at 1400, For 1 dose, DO NOT CRUSH. Tablet may be split in half along score line. 1405 ($Given - Provi boo: Leena Perea RN) metoprolol succinate ER (TOPROL XL) 24 hr tablet 50 mg 50 mg, Oral, DAILY, First dose (after last modification) on Tue01/14/24 at 1200, DO NOT CRUSH. Tablet may be split in half along score line. pantoprazole (PROTONIX) EC tablet 40 mg 40 mg, Oral, 2 TIMES DAILY, First dose on Tue01/12/24 at 0840 0943 ($Given - Provider: Isabel Nolan RN)1807 ($Given - Provider: Ailin Garrido RN)1999 (Not Given - Provider: Ailin Garrido RN - Reason: Patient/family refused) 0932 ($Given - Provider: Leena Perea RN) polyethylene glycol (MIRALAX) Packet 17 g 17 [...] 0802 ($Given - Provider: Isabel Nolan RN) 0951 (Not Given - Provider: Leena Perea RN - Reason: Patient/family refused) predniSONE (DELTASONE) tablet 5 mg 5 mg, Oral, EVERY MORNING, First dose on Tue01/13/24 at 0800 0931 ($Given - Provi boo: Leena Perea RN) sertraline (ZOLOFT) tablet 50 mg 50 mg, Oral, EVERY EVENING, First dose on Tue01/12/24 at 2000 1947 ($Given - Provider: Ailin Garrido RN) PRN Medication Order 01/11/2024 01/12/2024 01/13/2024 acetaminophen [...] 1441 ($Given - Provider: Chuyita Ramirez RN) 0817 (Not Given - Provider: Mela Sage RN - Reason: Other) LORazepam (ATIVAN) half-tab 0.25 mg 0.25 mg, Oral, EVERY 4 HOURS PRN, anxiety, Starting on Tue01/12/24 at 0651, MR x 1 1207 ($Given - Provider: Chuyita Ramirez RN) 0817 ($Given - Provider: Mela Sage RN - Comment: pulled as an override now not detecting barcode) naloxone (NARCAN) injection 0.2 mg(Linked Group 2) 0.2 mg, Intravenous, EVERY 2 MIN PRN, opioid reversal, Starting on Tue01/13/24 at 0630, Administer intravenous route when available and notify provider when administered. For unintended sedation or respiratory depression if all of the below criteria are met: ~ respiratory rate LESS than or EQUAL to 8. ~SaO2 less than 92% and or/end-tidal CO2 is greater than 50. ~ the patient is receiving an opioid, has unintended sedations assessed as RASS (-3), and is currently not on mechanical ventilation. RASS scale moderate (-3) is movement or eye opening to voice but no eye contact. Patient Monitoring Once the patient has demonstrated a response to the naloxone, continue to monitor respiratory rate, depth, oxygen saturation and end-tidal CO2 (if available) every 15 minutes x 2, then every 30 minutes x 2, then every 1 hour x 1 after each naloxone dose. Consider transfer to ICU if patient respiratory parameters have not improved after 4 naloxone doses. naloxone (NARCAN) injection 0.2 mg(Linked Group 2) 0.2 mg, Intramuscular, EVERY 2 MIN PRN, opioid reversal, Starting on Tue01/13/24 at 0630, Administer intramuscular if an intravenous route is not available and notify provider when administered. For unintended sedation or respiratory depression if all of the below criteria are met: ~ respiratory rate LESS than or EQUAL to 8. ~SaO2 less than 92% and or/end-tidal CO2 is greater than 50. ~ the patient is receiving an opioid, has unintended sedations assessed as RASS (-3), and is currently not on mechanical ventilation. RASS scale moderate (-3) is movement or eye opening to voice but no eye contact. Patient Monitoring Once the patient has demonstrated a response to the naloxone, continue to monitor respiratory rate, depth, oxygen saturation and end-tidal CO2 (if available) every 15 minutes x 2, then every 30 minutes x 2, then every 1 hour x 1 after each naloxone dose. Consider transfer to ICU if patient respiratory parameters have not improved after 4 naloxone doses. naloxone (NARCAN) injection 0.4 mg(Linked Group 2) 0.4 mg, Intravenous, EVERY 2 MIN PRN, opioid reversal, Starting on Tue01/13/24 at 0630, Administer intravenous route when available and notify provider when administered. For unintended sedation or respiratory depression if all of the below criteria are met: ~ respiratory rate LESS than or EQUAL to 8. ~ SaO2 less than 92% and or/end-tidal CO2 is greater than 50. ~ the patient is receiving an opioid, has unintended sedation assessed as RASS (-4) or (-5) and patient is currently not on mechanical ventilation. RASS scale (-4) is deep sedation with no response to voice but movement or eye opening to physical stimulation. RASS scale (-5) is unarousable. Patient Monitoring Once the patient has demonstrated a response to the naloxone, continue to monitor respiratory rate, depth, oxygen saturation and end-tidal CO2 (if available) every 15 minutes x 2, then every 30 minutes x 2, then every 1 hour x 1 after each naloxone dose. Consider transfer to ICU if patient respiratory parameters have not improved after 4 naloxone doses. naloxone (NARCAN) injection 0.4 mg(Linked Group 2) 0.4 mg, Intramuscular, EVERY 2 MIN PRN, opioid reversal, Starting on Tue01/13/24 at 0630, Administer intramuscular if an intravenous route is not available and notify provider when administered. For unintended sedation or respiratory depression if all of the below criteria are met: ~ respiratory rate LESS than or EQUAL to 8. ~ SaO2 less than 92% and or/end-tidal CO2 is greater than 50. ~ the patient is receiving an opioid, has unintended sedation assessed as RASS (-4) or (-5) and patient is currently not on mechanical ventilation. RASS scale (-4) is deep sedation with no response to voice but movement or eye opening to physical stimulation. RASS scale (-5) is unarousable. Patient Monitoring Once the patient has demonstrated a response to the naloxone, continue to monitor respiratory rate, depth, oxygen saturation and end-tidal CO2 (if available) every 15 minutes x 2, then every 30 minutes x 2, then every 1 hour x 1 after each naloxone dose. Consider transfer to ICU if patient respiratory parameters have not improved after 4 naloxone doses. nitroGLYcerin (NITROSTAT) sublingual tablet 0.4 mg 0.4 mg, Sublingual, EVERY 5 MIN PRN, chest pain, Starting on Tue01/13/24 at 0627 0814 ($Given - Provider: Mela Sage RN - Comment: 3 pills) ondansetron (ZOFRAN ODT) ODT tab 4 mg(Linked Group 3) 4 mg, Oral, EVERY 6 HOURS PRN, [...] RN) ondansetron (ZOFRAN) injection 4 mg(Linked Group 3) 4 mg, Intravenous, EVERY 6 HOURS PRN, [...] 8.6-50 MG per tablet 1 tablet(Linked Group 4) 1 tablet, Oral, 2 TIMES DAILY PRN, [...] 8.6-50 MG per tablet 2 tablet(Linked Group 4) 2 tablet, Oral, 2 TIMES DAILY PRN, [...] patient's own supply- 125 mg chewable tablet 0951 (Not Given - Provider: Leena Perea RN - Reason: Patient/family refused) sodium chloride (OCEAN) 0.65 % nasal spray [...] not to exceed 4 grams/day. Group 2: naloxone (NARCAN) injection 0.2 mgJump to med 0.2 mg, Intravenous, EVERY 2 MIN PRN, opioid reversal, Starting on Tue01/13/24 at 0630, Administer intravenous route when available and notify provider when administered. For unintended sedation or respiratory depression if all of the below criteria are met: ~ respiratory rate LESS than or EQUAL to 8. ~SaO2 less than 92% and or/end-tidal CO2 is greater than 50. ~ the patient is receiving an opioid, has unintended sedations assessed as RASS (-3), and is currently not on mechanical ventilation. RASS scale moderate (-3) is movement or eye opening to voice but no eye contact. Patient Monitoring Once the patient has demonstrated a response to the naloxone, continue to monitor respiratory rate, depth, oxygen saturation and end-tidal CO2 (if available) every 15 minutes x 2, then every 30 minutes x 2, then every 1 hour x 1 after each naloxone dose. Consider transfer to ICU if patient respiratory parameters have not improved after 4 naloxone doses. Or naloxone (NARCAN) injection 0.4 mgJump to med 0.4 mg, Intravenous, EVERY 2 MIN PRN, opioid reversal, Starting on Tue01/13/24 at 0630, Administer intravenous route when available and notify provider when administered. For unintended sedation or respiratory depression if all of the below criteria are met: ~ respiratory rate LESS than or EQUAL to 8. ~ SaO2 less than 92% and or/end-tidal CO2 is greater than 50. ~ the patient is receiving an opioid, has unintended sedation assessed as RASS (-4) or (-5) and patient is currently not on mechanical ventilation. RASS scale (-4) is deep sedation with no response to voice but movement or eye opening to physical stimulation. RASS scale (-5) is unarousable. Patient Monitoring Once the patient has demonstrated a response to the naloxone, continue to monitor respiratory rate, depth, oxygen saturation and end-tidal CO2 (if available) every 15 minutes x 2, then every 30 minutes x 2, then every 1 hour x 1 after each naloxone dose. Consider transfer to ICU if patient respiratory parameters have not improved after 4 naloxone doses. Or naloxone (NARCAN) injection 0.2 mgJump to med 0.2 mg, Intramuscular, EVERY 2 MIN PRN, opioid reversal, Starting on Tue01/13/24 at 0630, Administer intramuscular if an intravenous route is not available and notify provider when administered. For unintended sedation or respiratory depression if all of the below criteria are met: ~ respiratory rate LESS than or EQUAL to 8. ~SaO2 less than 92% and or/end-tidal CO2 is greater than 50. ~ the patient is receiving an opioid, has unintended sedations assessed as RASS (-3), and is currently not on mechanical ventilation. RASS scale moderate (-3) is movement or eye opening to voice but no eye contact. Patient Monitoring Once the patient has demonstrated a response to the naloxone, continue to monitor respiratory rate, depth, oxygen saturation and end-tidal CO2 (if available) every 15 minutes x 2, then every 30 minutes x 2, then every 1 hour x 1 after each naloxone dose. Consider transfer to ICU if patient respiratory parameters have not improved after 4 naloxone doses. Or naloxone (NARCAN) injection 0.4 mgJump to med 0.4 mg, Intramuscular, EVERY 2 MIN PRN, opioid reversal, Starting on Tue01/13/24 at 0630, Administer intramuscular if an intravenous route is not available and notify provider when administered. For unintended sedation or respiratory depression if all of the below criteria are met: ~ respiratory rate LESS than or EQUAL to 8. ~ SaO2 less than 92% and or/end-tidal CO2 is greater than 50. ~ the patient is receiving an opioid, has unintended sedation assessed as RASS (-4) or (-5) and patient is currently not on mechanical ventilation. RASS scale (-4) is deep sedation with no response to voice but movement or eye opening to physical stimulation. RASS scale (-5) is unarousable. Patient Monitoring Once the patient has demonstrated a response to the naloxone, continue to monitor respiratory rate, depth, oxygen saturation and end-tidal CO2 (if available) every 15 minutes x 2, then every 30 minutes x 2, then every 1 hour x 1 after each naloxone dose. Consider transfer to ICU if patient respiratory parameters have not improved after 4 naloxone doses. Group 3: ondansetron (ZOFRAN ODT) ODT tab 4 mgJump [...] go to Step 2 prochlorperazine (COMPAZINE). Group 4: senna-docusate (SENOKOT-S/PERICOLACE) 8.6-50 MG per tablet 1 [...] stools. documented in this encounter Care Teams Paid Internship Relationship Specialty Start Date End Date Loren Beyer MD [facility] & [address] [id number] PCP - General Family Practice 11/15/17 Teresa Chiu, HEENA Registered Nurse Cardiology 07/15/23 01/17/24 Meenu Denis DO [address] [place] [id number] Assigned Heart and Vascular Provider 07/29/23 documented as of this encounter
--- OUTSIDE RECORDS SUMMARY | 2024-03-08 08:05 | XMS_ITS | Encounter Summary ---
Author Organization [place] Address [address] [facility] [place] [address] Care Team Providers Care Grounds Keeper Name Role Phone Loren Beyer MD Primary Care Provider + Meenu Denis DO Unavailable [phone] Reason for Visit * Reason Comments Follow Up 1 month follow up, nano lo medications * Consultation (Routine: Next available opening) - Pending Review Specialty Diagnoses / Procedures Referred By Lukasz t Referred To Contact Cardiovascular Disease Diagnoses Coronary artery disease involving rincon coronary artery of rincon heart without angina pectoris Benign essential hypertension Chest pain, unspecified type Meenu Denis DO [address] [place] [address] Phone: tel: fax: Referral ID Status Reason Start Date Expiration Date V isits Requested Visits Authorized [id number] Pending Review 01/23/2024 01/22/2025 1 1 Encounter Details Date Type Department Care Team (Late st Contact Info) Description 02/24/2024 3:15 PM CDT Virtual Visit [facility] [address] [place] [address] [address] [place] [address] Meenu Denis DO [address] [place] [id number] Coronary artery disease involving rincon coronary artery of rincon heart without angina pectoris; Benign essential hypertension; Chest pain, unspecified type Social History Tobacco Use Types Packs/Day Years [...] in an abandoned building, in an overnight long-term, or couch-surfing.) Yes 01/12/2024 Are you worried [...] on file 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 She has a history of coronary artery disease and anterior STEMI in December 2022 and underwent revascularization of her mid LAD as well as a staged procedure to her mid RCA through the [facility] system she had LV dysfunction initially but this did normalize post revascularization. She has an allergy to aspirin so she has been maintained on Plavix only. She has had several medication reactions including to metoprolol which she developed chest tightness with. She is able to take losartan in combination with clonidine for both blood pressure and her heart. She is intolerant of statins but able to take Zetia. She has noted that her blood pressures have been mildly elevated recently running in the 150s systolic with her last visit I did increase her losartan dose from 25 mg twice daily to 50 mg twice daily. At that time her systolic blood pressures were in the high 180s so it has come down some. She alsotakes clonidine 0.5 mg in the a.m. and 1 mg in the p.m. I had suggested that she switch this to taking the higher dose in the a.m. to provide better daytime coverage. She denies any frequent chest pain chest pain with exertion or difficulty with her breathing. She occasionally takes sublingual nitroglycerin, we did talk about possibly transitioning to long-acting nitrates if she sees an increased frequency and use of nitroglycerin. Summary 1. Coronary artery disease with multivessel staged procedures to LAD and RCA and preserved LV systolic function-several medication intolerances and intolerance to statins but on Zetia, allergy to aspirin so on Plavix only and she will continue this indefinitely. She is not complaining of any chest pain symptoms at this time and uses nitroglycerin infrequently. We talked about possibly starting long acting nitrates if needed if she sees that she is requiring more frequent nitroglycerin or havingmore episodes of chest discomfort 2. Hypertension-much better but still not well-controlled, I have suggested just simply switching the dose of clonidine taking the higher dose in the daytime to provide better daytime coverage. She will continue to monitor blood pressures at home We agreed that we would follow-up in about 6 months, please feel free to contact me with any questions given regards to her care What phone number would you like to be contacted at? How would you like to obtain your AVS? Mail a copy Originating Location (pt. Location): Home Distant Location (provider location): On-site Phone call duration: 15 minutes Total time spent in chart review, phone conversation, dictation and orders=30 min Patient reported vitals: BP: 149/70 Heart rate: 71 Weight: 116.9 lb SpO2 : 98% Review Of Systems Respiratory: No shortness of breath, dyspnea on exertion, cough, or hemoptysis Cardiovascular: negative *Pt states constant fogginess and more fatigued.( Sleeping 2-3 hrs during the day) Will Zaman - Clinical Bridges Supervisor 02/24/24 documented in this encounter Plan of Treatment Not on file documented as of this encounter Visit Diagnoses Diagnosis Coronary artery disease involving rincon coronary artery of rincon heart without angina pectoris Benign essential hypertension Essential hypertension, benign Chest pain, unspecified type documented in this encounter Care Teams Grounds Keeper Relationship Specialty Start Date End Date Loren Beyer MD [facility] & [address] [address] PCP - General Family Practice 11/15/17 Meenu Denis DO [address] [place] [address] Assigned Heart and Vascular Provider 07/29/23 documented as of this encounter
--- OUTSIDE RECORDS SUMMARY | 2024-03-08 08:05 | XMS_ITS | Encounter Summary ---
Author Organization [place] Address [address] [facility] [place] [address] Care Team Providers Care Counter Tender Name Role Phone Loren Beyer MD Primary Care Provider + Teresa Chiu RN Unavailable Unavaila ble Meenu Denis DO Unavailable [phone] Reason for Visit * Reason Onset Date Comments Symptoms 12/02/2023 Feeling in a Fog and exhausted all the time Encounter Details Date Type Department Care Team (Late st Contact Info) Description 12/02/2023 Telephone [facility] [address] [place] [address] [place] [address] [place] [address] [address] [place], [place] [address] Symptoms (Feeling in a Fog and exhausted all the time) Social History Tobacco Use Types Packs/Day Years Used Date Smoking Tobacco: Never Smokeless Tobacco: Never Alcohol Use Standard Drinks/Week Comments No 0 (1 standard drink = 0.6 oz pur e alcohol) PHQ-2 Answer Date Recorded PHQ-2 Score 0 02/25/2023 Adolescent Education Answer Date Record ed Getting School Help Needed Not on file 02/18 Comments No Sex and Gender Information Value Date Recorded Sex Assigned at Not on file 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 [address] [place] [address] PCP - General Family Practice 11/15/17 Teresa Chiu, RN Registered Nurse Cardiology 07/15/23 01/17/24 Meenu Denis DO [address] [place] [address] Assigned Heart and Vascular Provider 07/29/23 documented as of this encounter
--- OUTSIDE RECORDS SUMMARY | 2024-03-08 08:05 | XMS_ITS | Encounter Summary ---
Author Organization [place] Address [address] [facility] [place] [address] Care Team Providers Care Bezel Cutter Name Role Phone Loren Beyer MD Primary Care Provider + Meenu Denis DO Unavailable [phone] Reason for Referral * Consultation (Routine: Next available opening) - Pending Review Specialty Diagnoses / Procedures Referred By Contac t Referred To Contact Cardiovascular Disease Diagnoses Coronary artery disease involving ottawa coronary artery of ottawa heart without angina pectoris Benign essential hypertension Chest pain, unspecified type Meenu Denis DO [address] [facility] [address] [place] [address] Phone: tel: fax: Referral ID Status Reason Start Date Expiration Date V isits Requested Visits Authorized [id number] Pending Review 01/23/2024 01/22/2025 1 1 Question Answer Follow-up with: Self Scheduling Instructions: [facility] will call you to coordinate your care as prescribed by your provider. If you have concerns about scheduling, please call [phone]. - CAN BE A PHONE VISIT Comments [facility] will call you to coordinate your care as prescribed by your provider. If you have concerns about scheduling, please call [phone]. 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 Gender Identity Not on file Sexual Orientation Not on file documented as of this encounter Last Filed Vital Signs Vital Sign Reading Time Taken Comments Blood Pressure 188/80 01/23/2024 1:26 PM CDT Pulse 74 01/23/2024 1:10 PM CDT Temperature - - Respiratory Rate - - Oxygen Saturation - - Inhaled Oxygen Concentration - - Weight 52.4 kg (115 lb 8 oz) 01/23/2024 1:10 PM CDT Height 147.3 cm (4' 10) 01/23/2024 1:10 PM CDT Body Mass Index 24.14 01/23/2024 1:10 PM CDT documented in this encounter Patient Instructions * Patient Instructions* Meenu Denis DO - 01/23/2024 1:15 PM CDT DECREASE METOPROLOL TO 12.5MG (1/2 TAB) ONCE DAILY FOR ONE WEEK THEN STOP ALTOGETHER. documented in this encounter Progress Notes * Meenu Denis DO - 01/23/2024 1:15 PM CDT HPI and Plan: Fawad Unger is a 88 year old female who presents with history of coronary disease and anterior STEMI in December 2022 she underwent revascularization of her mid LAD and then a staged procedure toher mid RCA at that time through the [facility] system. Postprocedure her LV systolic function improvedand normalized with an EF estimated around 60-65%. She is unable to take aspirin due to allergy andhistory of long standing asthma she is maintained on Plavix only. She has had epistasis episodes since being on Plavix but lately she has had more infrequent episodes. She was recently hospitalized with some atypical chest pains and elevated blood pressures and was increased on her metoprolol whichshe did not tolerate due to tightness in her chest. She subsequently went back to taking just 25 mgdaily but continues to have increased tiredness and taking daily naps. Most of this appointment was spent in education and counseling about her heart disease, blood pressure and blood pressure management. Her symptoms of fleeting sharp chest pains have resolved on theirown and more likely musculoskeletal. Exam today is unremarkable Summary 1. Coronary artery disease with PCI to her LAD and RCA-she had a recent hospitalization for atypical chest pain that was likely musculoskeletal. She will resume current medical management including Plavix lifelong. 2. Hypertension-blood pressures are not well-controlled and she did not tolerate higher doses of metoprolol likely due to underlying reactive airway disease. In fact I am going to take her off metoprolol altogether as I do not believe she is tolerating this medication even at low-dose. She does however tolerate losartan and currently is at 25 mg twice daily so I am going to increase this to 50 mg twice daily. We can also increase her clonidine as needed as she is tolerant of this as well. For now she is going to increase her losartan to 2 pills twice a day for total of 100 mg daily. If this works for her I will be happy to provide her with a 3-month supply at the higher dose. Please feel free to contact me with any questions given regards to her care Today's clinic visit entailed: 45 minutes spent by me on the date of the encounter doing chart review, review of outside records, review of test results, patient visit, documentation, and discussion with family Provider Link to [facility] Help Grid The level of medical decision making during this visit was of high complexity. Orders Placed This Encounter Procedures Follow-Up with Cardiology Orders Placed This Encounter Medications losartan (COZAAR) 50 MG tablet Sig: Take 1 tablet (50 mg) by mouth 2 times daily. Dispense: 180 tablet Refill: 4 DO NOT FILL UNTIL REQUESTED Medications Discontinued During This Encounter Medication Reason losartan (COZAAR) 25 MG tablet Reorder (No AVS) Encounter Diagnoses Name Primary? Coronary artery disease involving ottawa coronary artery of ottawa heart without angina pectoris Yes Benign essential hypertension Chest pain, unspecified type CURRENT MEDICATIONS: Current Outpatient Medications Medication Sig [...] morning LORazepam (ATIVAN) 0.5 MG tablet Take 0.25 mg by mouth as needed. losartan (COZAAR) 50 MG tablet Take 1 tablet (50 mg) by mouth 2 times daily. 180 tablet 4 metoprolol succinate ER (TOPROL XL) 25 MG 24 hr tablet Take 2 tablets (50 mg) by mouth daily. multivitamin, therapeutic with minerals (MULTI-VITAMIN) TABS Take [...] sodium chloride (OCEAN) 0.65 % nasal spray [place] 1 spray in nostril daily as needed for congestion. FLOVENT HFA 110 MCG/ACT inhaler Inhale 2 puffs into the lungs 2 times daily (Patient not taking: Reported on 01/23/2024) ALLERGIES Allergies Allergen Reactions Food Any contact [...] Location: OR TONSILLECTOMY & ADENOIDECTOMY FAMILY HISTORY: No family history on file. SOCIAL HISTORY: Social History Socioeconomic History Marital status: Spouse name: None Number of children: None Years of education: None Highest education level: None Tobacco Use Smoking status: Never Smokeless tobacco: Never Substance and Sexual Activity Alcohol use: No Drug use: No Social Determinants of Health Financial Resource Strain: Low Risk (01/12/2024) Financial Resource Strain Within the past 12 months, have you or your family members you live with been unable to get utilities (heat, electricity) when it was really needed?: No Food Insecurity: Low Risk (01/12/2024) Food Insecurity Within the past 12 months, did you worry that your food would run out before you got money to buy more?: No Within the past 12 months, did the food you bought just not last and you didn???t have money to getmore?: No Transportation Needs: Low Risk (01/12/2024) Transportation Needs Within the past 12 months, has lack of transportation kept you from medical appointments, getting your medicines, non-medical meetings or appointments, work, or from getting things that you need?: No Received from [facility], [facility] [employer] [facility] [employer] [facility] Social Connections Housing Stability: Low Risk (01/12/2024) Housing Stability Do you have housing? : Yes Are you worried about losing your housing?: No Review of Systems: Skin: Eyes: ENT: Respiratory: Cardiovascular: Gastroenterology: Genitourinary: Musculoskeletal: Neurologic: Psychiatric: Heme/Lymph/Imm: Endocrine: Physical Exam: Vitals: BP (!) 188/80 (BP Location: Right arm) Pulse 74 Ht 1.473 m (4' 10) Wt 52.4 kg (115 lb 8 oz) BMI 24.14 kg/m?? Constitutional: cooperative Skin: warm and dry [...] RESULTS: Lab Results Component Value Date WBC 11.6 (H) 01/13/2024 WBC 12.4 (H) 02/01/2013 RBC 4.27 01/13/2024 RBC 4.28 02/01/2013 HGB 10.2 (L) 01/13/2024 HGB 11.0 (L) 02/01/2013 HCT 33.5 (L) 01/13/2024 HCT 34.3 (L) 02/01/2013 MCV 79 01/13/2024 MCV 80 02/01/2013 MCH 23.9 (L) 01/13/2024 MCH 25.7 (L) 02/01/2013 MCHC 30.4 (L) 01/13/2024 MCHC 32.1 02/01/2013 RDW 16.8 (H) 01/13/2024 RDW 16.2 (H) 02/01/2013 PLT 224 01/13/2024 PLT 178 02/02/2013 BMP RESULTS: Lab Results Component Value Date NA 137 01/13/2024 NA 139 01/29/2013 POTASSIUM 3.6 01/13/2024 POTASSIUM 4.0 01/29/2013 CHLORIDE 103 01/13/2024 CHLORIDE 99 11/28/2023 CHLORIDE 101 01/29/2013 CO2 24 01/13/2024 CO2 31 01/29/2013 ANIONGAP 10 01/13/2024 ANIONGAP 7 01/29/2013 GLC 146 (H) 01/13/2024 GLC 285 (H) 01/12/2024 GLC 108 (H) 02/01/2013 BUN 15.1 01/13/2024 BUN 16 01/29/2013 CR 0.83 01/13/2024 CR 0.64 01/30/2013 GFRESTIMATED 68 01/13/2024 GFRESTIMATED 70 07/20/2013 GFRESTBLACK 84 07/20/2013 KARY 8.9 01/13/2024 KARY 8.9 01/29/2013 A1C RESULTS: No results found for: A1C INR RESULTS: Lab Results Component Value Date INR 0.95 01/29/2013 CC Loren Beyer MD [facility] & [address] [address] documented in this encounter Plan of Treatment Scheduled Referrals Name Type Priority Associated Diagnoses Orde r Schedule Follow-Up with Cardiology Referral Routine: Next available opening Coronary artery disease involving ottawa coronary artery of ottawa heart without angina pectoris Benign essential hypertension Chest pain, unspecified type Expected: 02/22/2024 (Approximate), Expires: 01/22/2025 documented as of this encounter Visit Diagnoses Diagnosis Coronary artery disease involving ottawa coronary artery of ottawa heart without angina pectoris- Primary Benign essential hypertension Essential hypertension, benign Chest pain, unspecified type documented in this encounter Care Teams Bezel Cutter Relationship Specialty Start Date End Date Loren Beyer MD [facility] & [facility] [address] [place] [address] PCP - General Family Practice 11/15/17 Meenu Denis DO [address] [place] [address] Assigned Heart and Vascular Provider 07/29/23 documented as of this encounter
--- OUTSIDE RECORDS SUMMARY | 2024-03-08 08:05 | XMS_ITS | Encounter Summary ---
Author Organization [place] Address [address] [facility] 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 Loren Beyer MD LAB - BLOOD ORDERABLES E dited Result - Final CITLALY PF NON-INTERFACED (ONBASE SCANS) * (ABNORMAL) [...] 12/23/2023. Loren Beyer MD LAB - BLOOD ORDERABLES E dited Result - Final Performing Organization Address [facility] Co de Phone Number CITLALY PFT NON-INTERFACED [...] 12/23/2023. Loren Beyer MD LAB - BLOOD ORDERABLES E dited Result - Final Performing Organization Address [facility] Co de Phone Number CITLALY PFT NON-INTERFACED (ONBASE SCANS) * (ABNORMAL) Hemoglobin A1c (09/05/2023 9:45 AM CDT) Hemoglobin A1C (External) 7.3(H) 0 - 5.6 % NON-INTERFACED (ONBASE SCANS) Blood BLOOD SPECIMEN / Unknown 09/05/2023 9:45 AM CDT Narrative JARRODE PFT - 12/23/2023 10:57 AM CDT Verified by Thu Cedeño on 12/23/2023. us Loren Beyer MD LAB - BLOOD ORDERABLES E dited Result - Final CITLALY PFT NON-INTERFACED (ONBASE SCANS) * (ABNORMAL) Ferritin (09/05/2023 9:45 AM CDT) Ferritin (External) 8.5(L) 11.1 - 264.0 ng/mL NON-INTERFACED (ONBASE SCANS) Blood BLOOD SPECIMEN / Unknown 09/05/2023 9:45 AM CDT Narrative JARRODE PFT - 12/23/2023 10:57 AM CDT Verified by Thu Cedeño on 12/23/2023. us Loren Beyer MD LAB - BLOOD ORDERABLES E dited Result - Final CITLALY PFT NON-INTERFACED (ONBASE SCANS) documented in this encounter Visit Diagnoses Not on filedocumented in this encounter Care Teams Cafeteria Monitor Relationship Specialty Start Date End Date Loren Beyer MD [facility] [address] [place] [address] PCP - General Family Practice 11/15/17 Teresa Chiu, RN Registered Nurse Cardiology 07/15/23 01/17/24 Meenu Denis DO [address] [place] [address] Assigned Heart and Vascular Provider 07/29/23 documented as of this encounter
--- OUTSIDE RECORDS SUMMARY | 2024-03-08 08:05 | XMS_ITS | Encounter Summary ---
Author Organization [place] Address [address] [facility] [place] [address] Care Team Providers Care Golf Coach Name Role Phone Loren Beyer MD Primary Care Provider + Brian Abreu MD Unavailable Sakina Osborne APRN SHANK TAPER Unavailable [phone] Teresa Chiu RN Unavailable Unavaila Meenu Alves DO Unavailable [phone] Encounter Details Date Type Department Care Team (Late st Contact Info) Description 01/24/2023 External Order Results [facility] [address] [place] [address] Outside, Provider Social History Tobacco Use Types Packs/Day Years Used Date Smoking Tobacco: Never Smokeless Tobacco: Never Alcohol Use Standard Drinks/Week Comments No 0 (1 standard drink = 0.6 oz pur e alcohol) Comments No Sex and Gender Information Value Date Recorded Sex Assigned at Not on file 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 Provider Outside LAB - BLOOD ORDERABLES Edited R [employer] - [employer] Performing Organization Address City/[facility]/ZIP Co de Phone Number GENAROEZE PFT NON-INTERFACED [...] Outside LAB - BLOOD ORDERABLES Edited R [employer] - Final GENAROEZE PFT NON-INTERFACED (ONBASE SCANS) * (ABNORMAL) CBC [...] ORDERABLES Edited R esult - Final CITLALY PFSuzanna NON-INTERFACED (ONBASE SCANS) documented in this encounter Visit Diagnoses Not on filedocumented in this encounter Care Teams Golf Coach Relationship Specialty Start Date End Date Loren Beyer MD [facility] & [address] [address] PCP - General Family Practice 11/15/17 Brian Abreu MD [address] [place] [address] [place] [address] Assigned Heart and Vascular Provider 02/26/23 05/06/23 Sakina Osborne APRN SHANK TAPER [address] [place] [address] Assigned Heart and Vascular Provider 05/07/23 07/28/23 Teresa Chiu, RN Registered Nurse Cardiology 07/15/23 01/17/24 Meenu Denis DO [address] [place] [address] Assigned Heart and Vascular Provider 07/29/23 documented as of this encounter
--- OUTSIDE RECORDS SUMMARY | 2024-03-08 08:05 | XMS_ITS | Encounter Summary ---
Author Organization [place] Address [facility] 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
--- OUTSIDE RECORDS SUMMARY | 2024-03-08 08:05 | XMS_ITS | Encounter Summary ---
Author Organization [place] Address [address] [facility] 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 Loren Beyer MD LAB - BLOOD ORDERABLES E dited Result - Final CITLALY PFT NON-INTERFACED (ONBASE SCANS) * (ABNORMAL) Basic metabolic [...] dited Result - Final Performing Organization Address [facility] de Phone Number GENAROEZE PFT NON-INTERFACED (ONBASE [...] dited Result - Final Performing Organization Address [facility] Co de Phone Number JARRODE PFT NON-INTERFACED (ONBASE SCANS) * (ABNORMAL) [...] dited Result - Final Performing Organization Address City/[facility]/ZIP Co de Phone Number BREEZE PFT NON-INTERFACED [...] - Final BREEZE PFT NON-INTERFACED (ONBASE SCANS) documented in this encounter Visit Diagnoses Not on filedocumented in this encounter Care Teams Tray Line Worker Relationship Specialty Start Date End Date Loren Beyer MD [facility] [address] [place] [address] PCP - General Family Practice 11/15/17 Teresa Chiu, RN Registered Nurse Cardiology 07/15/23 01/17/24 Meenu Denis DO [address] [place] [address] Assigned Heart and Vascular Provider 07/29/23 documented as of this encounter
--- OUTSIDE RECORDS SUMMARY | 2024-03-08 08:05 | XMS_ITS | Encounter Summary ---
Author Organization [place] Address [address] [facility] [place] [address] Care Team Providers Care Fire Sprinkler Designer Name Role Phone Loren Beyer MD Primary Care Provider + Teresa Chiu RN Unavailable Unavaila Meenu Alves DO Unavailable [phone] Encounter Details Date Type Department Care Team (Late st Contact Info) Description 11/14/[address] 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
--- OUTSIDE RECORDS SUMMARY | 2024-03-08 08:05 | XMS_ITS | Encounter Summary ---
Author Organization [place] Address [address] [place] [address] Care Team Providers Care Potato Sorter Name Role Phone Loren Beyer MD Primary Care Provider + Meenu Denis DO Unavailable [phone] Reason for Visit * Reason Onset Date Comments OTHER 01/24/2024 Dental clearance Encounter Details Date Type Department Care Team (Late st Contact Info) Description 01/24/2024 Telephone [facility] [place] [address] [facility] [address] [place] [address] Meenu Denis DO [address] [facility] [address] [place] [address] OTHER (Dental clearance) Social History Tobacco Use Types Packs/Day Years [...] in an abandoned building, in an overnight [place] [facility], or couch-surfing.) Yes 01/12/2024 Are you worried [...] on file 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 Office needs clearance in writing, unable to take verbal order. RN did provide email address to email form to. Mery Hernandez RN on 02/23/2024 at 4:06 PM * Telephone Encounter - Rosenda Parker - 02/23/2024 3:19 PM CDT [facility] Phone Message May a detailed message be left on voicemail: yes Reason for Call: Other: Leila called back, she had faxed the med form again on 01/30/24 to fax# [phone]. She Is wondering if it was received. Please call her back to discuss. She states she will fax it again today. Action Taken: Other: cardiology Travel Screening: Not Applicable Thank you! [facility] Date of Service: * Telephone Encounter - Mery Hernandez RN - 01/27/2024 3:35 PM CDT Images from the original note were not included. Meenu Denis DO Lidke, Jen M, RN Caller: Unspecified (3 days ago, 1:35 PM) No restrictions Message left on dental office VM indicating no restrictions, also indicated that paperwork was not received. Fax and nursing phone provided for further questions. Mery Hernandez RN on 01/27/2024 at 3:38 PM * Telephone Encounter - Mery Hernandez RN - 01/25/2024 1:46 PM CDT Provider to advise on any restrictions to dental work. Mery Hernandez RN on 01/25/2024 at 1:46 PM * Telephone Encounter - Darion Ferreira - 01/24/2024 1:35 PM CDT [facility] Phone Message May a detailed message be left on voicemail: yes Reason for Call: Other: sherley is calling as she needs clearance for patient to get dental work they faxed a paper November 21 regarding this, please advise, thank you. Action Taken: Other: cardiology Travel Screening: Not Applicable Date of Service: documented in this encounter Plan of Treatment Not on file documented as of this encounter Visit Diagnoses Not on filedocumented in this encounter Care Teams Potato Sorter Relationship Specialty Start Date End Date Loren Beyer MD [facility] [place] [place] [address] PCP - General Family Practice 11/15/17 Meenu Denis DO [address] [place] [address] Assigned Heart and Vascular Provider 07/29/23 documented as of this encounter
== END 2024-03-05 14:21 | disposition home or self-care (01) ==
LOC: NFLDREF 03-08 08:01
PROVIDERS: PCP Family Medicine; Referring Provider Family Medicine; Visit Provider Family Medicine
DX: D64.9 Anemia, unspecified (principal); I10 Essential (primary) hypertension; E03.9 Hypothyroidism, unspecified; E78.5 Hyperlipidemia, unspecified; E11.9 Type 2 diabetes mellitus without complications; M81.0 Age-related osteoporosis without current pathological fracture
CPT/HCPCS: 80053; 80061; 82306; 82607; 84443

== ENCOUNTER 2024-04-17 09:57 | Outpatient (CLI) | payer MEDICARE, OTHER, SELFPAY | END 2024-04-17 09:58 | disposition home or self-care (01) | PROVIDERS: PCP Family Medicine; Visit Provider Family Medicine | DX: R53.1 Weakness (principal); E03.9 Hypothyroidism, unspecified; D50.9 Iron deficiency anemia, unspecified; F41.8 Other specified anxiety disorders; E22.2 Syndrome of inappropriate secretion of antidiuretic hormone; R53.83 Other fatigue; I10 Essential (primary) hypertension | CPT/HCPCS: 80053; 82728; 84443 ==

== ENCOUNTER 2024-06-05 10:01 | Outpatient (CLI) | payer MEDICARE, OTHER, SELFPAY | END 2024-06-05 10:02 | disposition home or self-care (01) | LOC: NFLDREF 06-06 01:53 | PROVIDERS: PCP Family Medicine; Referring Provider Family Medicine; Visit Provider Family Medicine | DX: I10 Essential (primary) hypertension (principal); E22.2 Syndrome of inappropriate secretion of antidiuretic hormone; E11.9 Type 2 diabetes mellitus without complications; D64.9 Anemia, unspecified | CPT/HCPCS: 80053; 82728 ==

== ENCOUNTER 2024-07-18 06:41 | Outpatient (CLI) | payer MEDICARE, OTHER, SELFPAY | END 2024-07-18 06:42 | disposition home or self-care (01) | LOC: AMB 07-19 09:55 | PROVIDERS: PCP Family Medicine; Visit Provider Family Medicine | DX: R04.0 Epistaxis (principal) | CPT/HCPCS: A0425; A0429 ==

== ENCOUNTER 2024-07-18 07:04 | Observation (INO) | payer MEDICARE, OTHER, SELFPAY ==
[2024-07-18] VITALS (8 sets, daily range): BP systolic 105–259; BP diastolic 56–102; PULSE 58–74; RESP 16–20; TEMP 36.1–37; O2SAT 90–98; BMI 21.0; BMI 20.9
--- OUTSIDE RECORDS SUMMARY | 2024-07-18 07:07 | XMS_ITS | Encounter Summary ---
Author Organization [place] Address [address] [facility] [place] [address] Care Team Providers Care Marbleizer Name Role Phone Loren Beyer MD Primary Care Provider + Brian Abreu MD Unavailable Sakina Osborne APRN CRIBBING SETTER Unavailable [phone] Teresa Chiu RN Unavailable Unavaila Meenu Alves DO Unavailable [phone] Encounter Details Date Type Department Care Team (Late st Contact Info) Description 01/24/2023 External Order Results 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 Gender Identity Not on file Sexual Orientation [...] Outside LAB - BLOOD ORDERABLES Edited R [place] Space - Blink Performing Organization Address City/[facility]/ZIP Co de Phone Number GENAROEZE PFT NON-INTERFACED [...] Outside LAB - BLOOD ORDERABLES Edited R [place] Space - Final GENAROEZE PFT NON-INTERFACED (ONBASE SCANS) [...] on filedocumented in this encounter Care Teams Marbleizer Relationship Specialty Start Date End Date Loren Beyer MD [facility] & [address] [address] PCP - General Family Practice 11/15/17 Brian Abreu MD [address] [place] [address] [place] [address] Assigned Heart and Vascular Provider 02/26/23 05/06/23 Sakina Osborne APRN CRIBBING SETTER [address] [place] [address] Assigned Heart and Vascular Provider 05/07/23 07/28/23 Teresa Chiu, RN Registered Nurse Cardiology 07/15/23 01/17/24 Meenu Denis DO [address] [place] [address] Assigned Heart and Vascular Provider 07/29/23 documented as of this encounter
--- OUTSIDE RECORDS SUMMARY | 2024-07-18 07:07 | XMS_ITS | Encounter Summary ---
Author Organization [place] Address [address] [facility] 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
--- OUTSIDE RECORDS SUMMARY | 2024-07-18 07:07 | XMS_ITS | Encounter Summary ---
Author Organization [place] Address [address] [facility] 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 Gender Identity Not on file Sexual Orientation [...] dited Result - Final Performing Organization Address [facility] de Phone Number GENAROEZE PFT NON-INTERFACED (ONBASE [...] dited Result - Final Performing Organization Address [facility] Co de Phone Number JARRODE PFT NON-INTERFACED [...] dited Result - Final Performing Organization Address City/[facility]/ZIP Co de Phone Number BREEZE [...] on filedocumented in this encounter Care Teams Administrative Services Manager Relationship Specialty Start Date End Date Loren Beyer MD [facility] [address] [place] [address] PCP - General Family Practice 11/15/17 Teresa Chiu, RN Registered Nurse Cardiology 07/15/23 01/17/24 Meenu Denis DO [address] [place] [address] Assigned Heart and Vascular Provider 07/29/23 documented as of this encounter
--- OUTSIDE RECORDS SUMMARY | 2024-07-18 07:07 | XMS_ITS | Encounter Summary ---
Author Organization [place] Address [address] [facility] 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 Gender Identity Not on file Sexual Orientation [...] dited Result - Final Performing Organization Address [facility] Co de Phone Number CITLALY [...] dited Result - Final Performing Organization Address [facility] Co de Phone Number CITLALY [...] on filedocumented in this encounter Care Teams Dump Motorman Relationship Specialty Start Date End Date Loren Beyer MD [facility] [address] [place] [address] PCP - General Family Practice 11/15/17 Teresa Chiu, RN Registered Nurse Cardiology 07/15/23 01/17/24 Meenu Denis DO [address] [place] [address] Assigned Heart and Vascular Provider 07/29/23 documented as of this encounter
--- OUTSIDE RECORDS SUMMARY | 2024-07-18 07:08 | XMS_ITS | Encounter Summary ---
Author Organization [place] Address [address] [facility] [place] [address] Care Team Providers Care Wharf Operator Name Role Phone Loren Beyer MD Primary Care Provider + Meenu Denis DO Unavailable [phone] Encounter Details Date Type Department Care Team (Late st Contact Info) Description 06/07/2024 MyC Medical Advice [facility] [address] [place] [address] Javier Hanson Social History Tobacco Use Types Packs/Day Years [...] you bought just not last and you didn t have money to get more? No 01/12/2024 Housing Stability Answer Date Recorded Do you have housing? 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
--- OUTSIDE RECORDS SUMMARY | 2024-07-18 07:08 | XMS_ITS | Clinical Summary ---
Author Organization [place] Address [facility] 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,Benign essential hypertension,Mariana st [...] Encounters Date Type Department Care Team Description 07/14/2024 Telephone [facility] [address] [place] [address] Nichelle Cazares, trip motor operator Refill (Needed her inhaler) 06/07/2024 MyC Medical Advice [facility] [address] [place] [address] Javier Hanson from Last 3 Months Social History Tobacco [...] file 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 Gender Identity Not on file Sexual Orientation Not on file Last Filed Vital Signs Vital Sign Reading Time Taken Comments Blood Pressure 188/80 01/23/2024 1:26 PM CDT Pulse 74 01/23/2024 1:10 PM CDT Temperature 36.6 C (97.9 F) 01/13/2024 11:00 AM CDT Respiratory Rate 18 01/13/2024 11:00 AM CDT [...] LIPID 01/25/2024 01/24/2023 A1C 02/28/2024 11/28/2023, 09/05/2023 PHQ-2 (once per calendar year) 2024 01/23/2024, 02/25/2023 BMP 07/13/2024 01/13/2024, 12/15, 11/28/2023, Additional history exists ALT 11/27/2024 11/28/2023, 08/15, 01/24/2023, Additional history exists CBC 01/12/2025 01/13/2024, 12/15, 11/28/2023, Additional history exists Pneumococcal Vaccine: 50+ Years Completed 06/16/2017, 09/05/2014, 02/08/2007, Additional history exists TSH W/FREE T4 REFLEX Completed 01/12/2024 HPV IMMUNIZATION Aged Out No longer e ligible based on patient's age to complete this topic MENINGITIS IMMUNIZATION Aged Out No l onger eligible based on patient's age to complete this topic Medical Devices Implanted Type Area Document Design Specialist Device Identifier Shelf Expiration Date Model / Serial / Lot Glenosphere 25mm Mini Baseplate Implanted:Qty: 1 on 01/30/2013 by Jc Farr MD at [facility] Right: Shoulder 11/12/2022 [id number] / / [id number] Humeral Bearing Standard 44-36mm Implanted:Qty: 1 on 01/30/2013 by Jc Farr MD at [facility] Right: Shoulder 10/12/2017 [id number] / / [id number] Implanted:Qty: 1 on 01/30/2013 by Jc Farr MD at [facility] Right: Shoulder 10/12/2022 [id number] / / [id number] 3.5 Hex Fixed Locking Screw [id number] Implanted:Qty: 1 on 01/30/2013 by Jc Farr MD at [facility] Right: Shoulder 12/12/2022 [id number] / / [id number] Fixed Hex Locking Screw Implanted:Qty: 1 on 01/30/2013 by Jc Farr MD at [facility] Right: Shoulder 12/12/2022 [id number] / / [id number] Hex Fixed Locking Screw Implanted:Qty: 1 on 01/30/2013 by Jc Farr MD at [facility] Right: Shoulder 12/12/2022 [id number] / / [id number] Fixed Locking Screw Implanted:Qty: 1 on 01/30/2013 by Jc Farr MD at [facility] Right: Shoulder 12/12/2022 [id number] / / [id number] Glenosphere 36mm Curve/Standard Implanted:Qty: 1 on 01/30/2013 by Jc Farr MD at [facility] Right: Shoulder 12/12/2022 [id number] / / [id number] 9x83mm Shoulder Stem Implanted:Qty: 1 on 01/30/2013 by Jc Farr MD at [facility] Right: Shoulder 10/12/2022 [id number] / / [id number] Humeral Tray 44mm Standard Implanted:Qty: 1 on 01/30/2013 by Jc Farr MD at [facility] Right: Shoulder 12/12/2022 [id number] / / [id number] Procedures Procedure Name Priority Date/Time Associated Diagnosis Comments CBC WITH PLATELETS Routine 01/13/2024 5: 39 AM CDT BASIC METABOLIC PANEL Routine 01/13/2024 5:39 AM CDT TSH WITH FREE T4 REFLEX Add-On 01/12/2024 5:26 AM CDT HEPATIC FUNCTION PANEL Routine 11/28/2023 9:30 AM CDT HEMOGLOBIN A1C Routine 11/28/2023 9:30 AM CDT LIPID PROFILE Routine 01/24/2023 8:51 AM CDT from Last 3 Months or Most Recently Relevant to Health Maintenance Results * (ABNORMAL) Basic metabolic panel (01/13/2024 5:39 AM CDT) Sodium 137 135 - 145 mmol/L 01/13/2024 6:15 AM CDT LABORATORY Potassium 3.6 3.4 - 5.3 mmol/L 01/13/2024 6:15 AM CDT [facility] Chloride 103 98 - 107 mmol/L 01/13/2024 6:15 AM CDT LABORATORY Carbon Dioxide (CO2) 24 22 - 29 mmol/L 01/13/2024 6:15 AM CDT [facility] Anion Gap 10 7 - 15 [...] - BLOOD ORDERABLES Final Res ult LABORATORY [facility] [address] [facility] Lab (1st floor, no room number) [place] [address], [facility] * (ABNORMAL) CBC with platelets (01/13/2024 5:39 [...] LAB - BLOOD ORDERABLES Final Res ult [facility] [address] (1st floor, no room number) [address] * TSH with free T4 reflex (01/12/2024 5:26 AM CDT) Pathologist [facility] TSH 2.47 0.30 - 4.20 uIU/mL 01/12/2024 10:06 AM CDT [facility] LABORATORY Blood BLOOD SPECIMEN / Unknown Venipuncture / Unknown 01/12/2024 5:26 AM CDT 01/12/2024 5:31 AM CDT us Jenise Bailey MD LAB - BLOOD ORDERABLES Fi nal Result [facility] [address] (1st floor, no room number) [place] [id number] [place] [address] * Hepatic function panel (11/28/2023 9:30 AM [...] dited Result - Final Performing Organization Address [facility] de Phone Number GENAROEZE PFT NON-INTERFACED (ONBASE SCANS) * (ABNORMAL) Hemoglobin A1c (11/28/2023 9:30 AM CDT) Pathologist [facility] Hemoglobin A1C (External) 7.4(H) 0 - 5.6 % NON-INTERFACED (ONBASE SCANS) Blood BLOOD SPECIMEN / Unknown 11/28/2023 9:30 AM CDT Narrative BREEZE PFT - 12/23/2023 11:04 AM CDT Verified by Gini Johnson on 12/23/2023. Loren Beyer MD LAB - BLOOD ORDERABLES E dited Result - Final Performing Organization Address City/[facility] de Phone Number GENAROEZE PFT NON-INTERFACED (ONBASE SCANS) * Lipid Profile (01/24/2023 8:51 AM CDT) Pathologist [facility] Triglycerides (External) 60 40 - 149 mg/dL NON-INTERFACE D (ONBASE SCANS) Cholesterol (External) 147 90 - 199 mg/dL NON-INTERFACE D (ONBASE SCANS) LDL Cholesterol Calculated (External) 82 <100 mg/dL NON-INTERFACE D (ONBASE SCANS) HDL Cholesterol (External) 53 >=50 mg/dL NON-INTERFACE D (ONBASE SCANS) Blood BLOOD SPECIMEN / Unknown 01/24/2023 8:51 AM CDT Narrative CITLALY BROWNET - 02/03/2023 4:02 PM CDT Verified by Lolita Rhodes on 02/03/2023. us Provider Outside LAB - BLOOD ORDERABLES Edited R esult - Final CITLALY WOLFE NON-INTERFACED (ONBASE SCANS) from Last 3 Months or Most Recently Relevant to Health Maintenance Insurance [employer] MEDICARE MEDICA PRIME SOLUTION MEDICARE Advance Directives For more information, please contact: [phone] * No CPR- Do NOT Intubate (Latest Code Status on File) Date Activated Date Inactivated Comments 01/12/2024 6:51 AM 01/13/2024 5:55 PM NO basic or advanced life-sustaining interventions are performed Question Answer Comments Code status determined by: Discussion with patie nt/ legal decision maker * DNR/DNI Date Activated Date Inactivated Comments 01/30/2013 12:12 PM 02/02/2013 12:40 PM Care Teams Commercial Sales Director Relationship Specialty Start Date End Date Loren Beyer MD [facility] [address] [place] [address] PCP - General Family Practice 11/15/17 Meenu Denis DO [address] [place] [address] Assigned Heart and Vascular Provider 07/29/23
[2024-07-18] MEDS: TRANEXAMIC ACID 100 MG/ML INJ 1000 MG TOPICAL (07:15)
--- NOTE | 2024-07-18 07:35 | ED_ITS ---
HPI - General Adult General Chief complaint: Epistaxis/Nosebleed Stated complaint: Nosebleed Time Seen by Provider: 07/18/24 07:10 Source: patient Mode of arrival: EMS Limitations: no limitations History of Present Illness HPI narrative: 88-year-old female well known to me presents to the emergency department for evaluation of nose bleed via EMS in middle of a Blizzard. Upon seeing me, she lab lead tells the nurse ?I do not like her?. With her being so hard of hearing I am not certain that she realized the volume that she was speaking at and it made me giggle. She would be described as difficult by many of my partners. Patient reported that her nosebleed started around 11:00 p.m. last night. She does get nosebleeds several times per week, most do stop on their own without any treatment. She has nasal packing in this 1, it blood for a couple of hours overnight and she has not attempted to remove the packing again. She is not having any dizziness or lightheadedness. Her blood pressure is often very high in the emergency room and is known to bounce around a lot in terms of level. I did start her on some losartan last year and it looks like she is actually still taking that which is surprising. She is intolerant of most medications, some of which are by choice, but several are true allergies. She does take Plavix but no other methods of anticoagulation. She is more prone to nosebleeds when her blood pressures are elevated. No stroke-like symptoms or neurological changes. She denies headache. No fever, no recent falls or trauma. Denies any other acute concerns today but admittedly was quite disappointed to see me again and does not say much to me. I do read the triage and she did not disclose any other complaints to the nursing team or the EMS team. Past medical history is notable for significant hypertension including rebound hypertension from her clonidine. She also has hypothyroidism, anxiety, coronary artery disease. Medications are listed is accurate per patient. Multiple drug allergies are reviewed and appear unchanged from my previous visit. Nonsmoker, lives independently. ROS is notable for the nose bleed and elevated blood pressures only. Did take her blood pressure medications prior to ambulance transport this morning. Related Data Home Medications ?Medication ?Instructions ?Recorded ?Confirmed calcium carbonate (Tums E-X) 300 mg PO .prn PRN 01/28/22 06/14/24 sodium chloride 0.65 % nasal spray 1 spray intranasal .prn 01/28/22 06/14/24 aerosol (Saline Nasal) simethicone 125 mg capsule (Gas 125 mg PO BID-QID PRN 04/30/22 06/14/24 Relief (simethicone)) polyethylene glycol 3350 17 4 g PO ONCE PRN 01/27/23 06/14/24 gram/dose oral powder (Miralax) calcium 600 mg (as cap PO DAILY 07/07/23 06/14/24 carbonate)-vitamin D3 12.5 mcg (500 unit) capsule (Calcium with Vit D3) lactase 9,000 unit chewable tablet 9,000 unit PO ONCE PRN 07/07/23 06/14/24 (Lactaid Fast Act) multivitamin (Daily Multi-Vitamin 1 tab PO DAILY 07/07/23 06/14/24 tablet) betamethasone, augmented 0.05 % topical 03/08/24 06/14/24 lotion ketoconazole 2 % shampoo topical 03/08/24 06/14/24 triamcinolone acetonide 0.1 % 1 applic topical BID-TID 03/08/24 06/14/24 topical cream clonidine HCl 0.1 mg tablet 0.1 mg PO BID hypertension 06/14/24 Previous Rx's ?Medication ?Instructions ?Recorded ondansetron 4 mg disintegrating 4 mg PO BID-TID PRN nausea and 09/30/23 tablet vomiting #30 tabs ciclesonide 160 mcg/actuation 2 inh inhalation BID #12.2 grams 03/08/24 aerosol inhaler (Alvesco) clopidogrel 75 mg tablet 75 mg PO DAILY #90 tabs 03/08/24 ezetimibe 10 mg tablet 10 mg PO DAILY #90 tabs 03/08/24 levothyroxine 25 mcg tablet 25 mcg PO DAILY #90 tabs 03/08/24 losartan 50 mg tablet 50 mg PO BID #180 tabs 03/08/24 omeprazole 20 mg capsule,delayed 20 mg PO QDAY GERD #90 caps 03/08/24 release prednisone 5 mg tablet 5 mg PO QAM #90 tabs 03/08/24 sertraline 50 mg tablet 50 mg PO QPM #90 tabs 03/08/24 nitroglycerin 0.4 mg sublingual 0.4 mg sublingual Q5-15M PRN chest 04/06/24 tablet pain #25 tabs lorazepam 0.5 mg tablet 0.25 mg (1/2 x 0.5 mg) PO BID PRN 06/10/24 anxiety #30 tabs azithromycin 250 mg tablet See Rx Instructions PO .COMPLEX #6 06/14/24 tabs albuterol sulfate 90 mcg/actuation 2 puff inhalation BID shortness of 07/16/24 aerosol inhaler breath or wheezing #8.5 grams Allergies Allergy/AdvReac Type Severity Reaction Status Date / Time codeine Allergy Severe Hallucinati Verified 06/14/24 13:27 ng hydrocodone Allergy Severe confusion/h Verified 06/14/24 13:27 allucinatin g oxycodone Allergy Severe Confusion Verified 06/14/24 13:27 penicillin V Allergy Severe Anaphylaxis Verified 06/14/24 13:27 rosuvastatin Allergy Severe Swelling Verified 06/14/24 13:27 of Lip/Tongue/Throat amlodipine Allergy Intermediate Flushing Verified 06/14/24 13:27 bisacodyl (From Dulcolax Allergy Intermediate rash/scalp, Verified 06/14/24 13:27 (bisacodyl)) redness to eyelid hydromorphone Allergy Intermediate mental Verified 06/14/24 13:27 changes lisinopril Allergy Intermediate itchy Verified 06/14/24 13:27 metformin Allergy Intermediate nausea, Verified 06/14/24 13:27 diarrhea aspirin Allergy Mild Rash Verified 06/14/24 13:27 atorvastatin Allergy Mild Rash Verified 06/14/24 13:27 calcitonin Allergy Mild Rash Verified 06/14/24 13:27 loratadine Allergy Mild Rash Verified 06/14/24 13:27 alendronate sodium Allergy Unknown Verified 06/14/24 13:27 lorazepam Allergy severe Verified 06/14/24 13:27 hallucinations montelukast Allergy Hallucinati Verified 06/14/24 13:27 ng peas Allergy Anaphylaxis Verified 06/14/24 13:27 Sulfa (Sulfonamide Allergy Anaphylaxis Verified 06/14/24 13:27 Antibiotics) mometasone furoate (From AdvReac Headache Verified 06/14/24 13:27 Asmanex Twisthaler) PFSH PFSH Medical History Depression with anxiety ?F41.8 - Other specified anxiety disorders (ICD-10) History of epistaxis ?Z87.898 - Personal history of other specified conditions (ICD-10) Cubital tunnel syndrome on right ?G56.21 - Lesion of ulnar nerve, right upper limb (ICD-10) Osteoarthritis of carpometacarpal (CMC) joint of left thumb ?M18.12 - Unilateral primary osteoarthritis of first carpometacarpal joint, left hand (ICD-10) Greater trochanteric bursitis of both hips ?M70.61 - Trochanteric bursitis, right hip (ICD-10) ?M70.62 - Trochanteric bursitis, left hip (ICD-10) ST elevation (STEMI) myocardial infarction (01/04/23) ?I21.3 - ST elevation (STEMI) myocardial infarction of unspecified site (ICD- 10) Fracture of right ulnar styloid ?S52.611A - Displaced fracture of right ulna styloid process, initial encounter for closed fracture (ICD-10) Personal history of gallstones ?Z87.19 - Personal history of other diseases of the digestive system (ICD-10) Iron deficiency anemia ?D50.9 - Iron deficiency anemia, unspecified (ICD-10) Functional dyspepsia ?K30 - Functional dyspepsia (ICD-10) Diverticulitis large intestine w/o perforation or abscess w/o bleeding ?K57.32 - Diverticulitis of large intestine without perforation or abscess without bleeding (ICD-10) Chronic nausea ?R11.0 - Nausea (ICD-10) Thyroid nodule ?E04.1 - Nontoxic single thyroid nodule (ICD-10) Chronic vertigo ?R42 - Dizziness and giddiness (ICD-10) Benign gastric polyp ?K31.7 - Polyp of stomach and duodenum (ICD-10) Diabetes mellitus ?E11.9 - Type 2 diabetes mellitus without complications (ICD-10) Epistaxis ?R04.0 - Epistaxis (ICD-10) Temporal headache ?R51.9 - Headache, unspecified (ICD-10) Throat clearing ?R09.89 - Other specified symptoms and signs involving the circulatory and respiratory systems (ICD-10) Tetanus vaccine side effect ?T50.A95A - Adverse effect of other bacterial vaccines, initial encounter (ICD-10) Statin intolerance ?Z78.9 - Other specified health status (ICD-10) Perforated nasal septum ?J34.89 - Other specified disorders of nose and nasal sinuses (ICD-10) History of chronic eczema ?Z87.2 - Personal history of diseases of the skin and subcutaneous tissue (ICD-10) Environmental allergies ?Z91.09 - Other allergy status, other than to drugs and biological substances (ICD-10) Aspirin allergy ?Z88.8 - Allergy status to other drugs, medicaments and biological substances (ICD-10) Hyponatremia ?E87.1 - Hypo-osmolality and hyponatremia (ICD-10) Health care directive on file ?Z78.9 - Other specified health status (ICD-10) Surgical History History of carpal tunnel surgery of right wrist (05/19/23) ?Z98.890 - Other specified postprocedural states (ICD-10) H/O wisdom tooth extraction ?K08.409 - Partial loss of teeth, unspecified cause, unspecified class (ICD- 10) History of heart artery stent (01/04/23) ?Z95.5 - Presence of coronary angioplasty implant and graft (ICD-10) History of esophageal dilatation (2018) ?Z98.890 - Other specified postprocedural states (ICD-10) History of tonsillectomy and adenoidectomy ?Z90.89 - Acquired absence of other organs (ICD-10) History of dilation and curettage ?Z98.890 - Other specified postprocedural states (ICD-10) 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 Social History Narrative: - 2 adult daughters, little/no contact, closest to foster son [place], independent living [facility] [place] [place] [facility] Lifetime non-smoker does not drink alcohol Physical activity: housework, laundry cooking, stretch she has 15 minutes 3 times a week What is your current living situation?: I presently have a place to live Problems where you live: no known problems In the past 12 months, utilities in danger of being shut off: no In past 12 months, lack of transportation kept you from medical appts, meetings, work, or getting things needed for daily living: no In the past 12 mos, have been you worried that your food would run out before you had money to buy more?: never true In the past 12 mos, the food you bought just didn't last and you didn't have money to buy more?: never true Smoking Status: Never smoker Do you use any of these nicotine containing products: None How often do you have a drink containing alcohol: never How often do you have six or more drinks on one occasion: Never AUDIT-C Alcohol total score: 0 Non-prescribed substance use: denies use How often does anyone, including family, friends and others, physically hurt you : never How often does anyone, including family, friends and others, insult or talk down to you: never How often does anyone, including family, friends and others, threaten you with harm: never How often does anyone, including family, friends and others, scream or curse at you: never service: No Exam Const: Vital Signs, click to edit/add: Vital Signs - 24 hr 07/18/24 07:09 Pulse Rate [Right Pulse Oximeter] 74 Respiratory Rate 18 Blood Pressure [Ri ght Upper Arm] 259/102 H Pulse Oximetry 98 Oxygen Delivery Me thod Room Air Documenting provider has reviewed patient's vital signs: yes Common normals: alert General appearance: well kempt Other: Irritable but normal conversation. At baseline. Appears well nourished and well hydrated. No pallor. HENMT: Common normals: normocephalic, moist oral mucous membranes and oropharynx normal Head and scalp: normocephalic Other: Nasal packing and right nares removed. There does appear to be scant bleeding but a clot formed on the anterior plexus area. No trauma to the nares. Eye: Common normals: conjunctivae normal General eye: normal appearance of both eyes Conjunctiva: conjunctiva(e) normal Neck & C-Spine: General: normal visual inspection Resp: Common normals: normal respiratory effort and clear to auscultation bilaterally Effort & inspection: able to speak in complete sentences Auscultation: clear to auscultation bilaterally Cardio: Common normals: regular rate, regular rhythm, S1 normal heart sound and S2 normal heart sound Rate: regular rate Rhythm: regular rhythm Heart sounds: S1 normal and S2 normal Neuro: Sensorium/orientation: alert Speech: speech normal Motor exam: no tremor noted and no movement abnormalities noted Psych: Appearance: well kempt Attitude: other (Mildly irritable, at baseline.) Insight: insight good Judgement: judgment good Skin: Common normals: no rashes or lesions noted General skin exam: no rashes or lesions noted Course Course ED Course: 88-year-old female with acute nose bleed, chronic severe hypertension which is not new. There are no signs of hypertensive emergency, stroke-like symptoms, cardiac changes or nasal trauma. Counseled patient on treatment options, she would like to avoid a a nasal balloon packing if possible, I agree. We discussed topical TXA and clamping. She is hesitant to use antihypertensives in the ED as she states that she does not tolerate these well. I have known from prior experience that trying to give her medications against her will tends to make her more anxious and raise her blood pressure further. I am going to see if her blood pressure will come down with just rest and waiting for her home medications to kick in a little bit. 1 mL of TXA was applied to the anterior plexus in the nasal clamping. Will plan to repeat this every 5-10 minutes x3 and see if this works. If it is not successful, would plan to insert nasal packing. EKG is performed and is unchanged. Reevaluation(s) Time of Reevaluation #1: 08:22 Reevaluation #1: Systolic blood pressures now down to 197. Patient remains asymptomatic to any chest pain or neurological changes. I re-examined her nose after 3 rounds of TXA and this was successful at stopping her nose bleed. She has been monitored now for 30 minutes with no signs of repeat bleeding. Patient will be sent home with a nasal clamp. She will continue monitoring her blood pressure closely and use her clonidine as needed. This does tend to go significantly better for her outside of the hospital. She is comfortable with this plan. Alarm symptoms reviewed that would warrant ED presentation. She is counseled that if her nose starts rebleeding, apply the nasal clamp and lie down for 15 minutes. If the bleeding remains severe, call 911 but if it does stop, removed the clamp and see how things go. No blowing the nose for 24 hours, gentle dabbing at the tip of the nose only. Written instructions provided. She has no further questions. Vital Signs Vital signs: Initial Vital Signs Temperature Source Temporal Artery Scan 07/18/24 07:09 Pulse Rate 74 07/18/24 07:09 Pulse Rhythm Regular 07/18/24 07:09 Respiratory Rate 18 07/18/24 07:09 Blood Pressure 259/102 H 07/18/24 07:09 Blood Pressure Mean 154 H 07/18/24 07:09 Blood Pressure Position Supine 07/18/24 07:09 Pulse Oximetry 98 07/18/24 07:09 Oxygen Delivery Method Room Air 07/18/24 07:09 Vital Signs Pulse Rate 74 07/18/24 07:09 Respiratory Rate 18 07/18/24 07:09 Blood Pressure 259/102 H 07/18/24 07:09 Pulse Oximetry 98 07/18/24 07:09 Oxygen Delivery Method Room Air 07/18/24 07:09 Pulse Rate 74 07/18/24 07:09 Respiratory Rate 18 07/18/24 07:09 Blood Pressure 259/102 H 07/18/24 07:09 Pulse Oximetry 98 07/18/24 07:09 Oxygen Delivery Method Room Air 07/18/24 07:09 Medications Administered Medications: Discontinued Medications Generic Name Dose Route Start Last Admin Trade Name Freq PRN Reason Stop Dose Admin Tranexamic Acid 1,000 mg 07/18/24 07:10 07/18/24 07:15 Tranexamic Acid 100 Mg/Ml Inj TOPICAL 07/18/24 07:11 1,000 mg ONCE ONE Administration Medical Decision Making ECG Data Attestation: I personally reviewed and interpreted this ECG as follows: Prior ECG tracings: available for review Interpretation: EKG showing sinus rhythm with a rate of 74. There is a left axis deviation some mid septal changes. My comparison EKG is from December of 2022 and at that time she was definitely having an acute [place] so this EKG looks much better. Otherwise intervals look fairly normal. Previous lateral ischemia has resolved. Discharge Plan Discharge Clinical Impression: Acute anterior epistaxis Patient Disposition: Home w/ Parent or Adult Condition: Improved Instructions: Nosebleed (ED) Additional Instructions: As we discussed, the TXA medication was successful in getting the nosebleed to stop. Remember that the clots that are over the area of bleeding are not yet mature and will continue to set up over the next few hours. Please try not to blow your nose for the next 24 hours. Continue taking your antihypertensives to do your best to keep your blood pressure under 180. If the nosebleed restarts, apply the clamp and lie down for 15 minutes. If the bleeding remains severe at any point, please call 911. Continue taking her medications including your Plavix as prescribed. Activity Level: Activity as Tolerated Discharge Diet: Regular Prescriptions: No Action simethicone [Gas Relief (simethicone)] 125 mg capsule 125 mg PO BID-QID PRN polyethylene glycol 3350 [Miralax] 17 gram/dose powder 4 g PO ONCE PRN calcium carbonate-vitamin D3 [Calcium 600 with Vitamin D3] 600 mg-12.5 mcg (500 unit) capsule PO DAILY calcium carbonate [Tums E-X] 300 mg (750 mg) tablet,chewable 300 mg PO .prn PRN Saline Nasal 0.65 % aerosol,spray 1 spray intranasal .prn multivitamin [Daily Multi-Vitamin] Tablet 1 tab PO DAILY Lactaid Fast Act 9,000 unit tablet,chewable 9,000 unit PO ONCE PRN Rx Instructions: administer with meals and/or snacks triamcinolone acetonide 0.1 % cream 1 applic topical BID-TID ketoconazole 2 % shampoo topical betamethasone, augmented 0.05 % lotion topical sertraline 50 mg tablet 50 mg PO QPM Qty: 90 3RF prednisone 5 mg tablet 5 mg PO QAM Qty: 90 3RF omeprazole 20 mg capsule,delayed release(DR/EC) 20 mg PO QDAY Qty: 90 3RF Rx Instructions: 09/08/23 PLAN... GERD well controlled with just 1 omeprazole losartan 50 mg tablet 50 mg PO BID Qty: 180 3RF levothyroxine 25 mcg tablet 25 mcg PO DAILY Qty: 90 4RF ezetimibe 10 mg tablet 10 mg PO DAILY Qty: 90 4RF clopidogrel 75 mg tablet 75 mg PO DAILY Qty: 90 4RF Alvesco 160 mcg/actuation HFA aerosol inhaler 2 inh inhalation BID Qty: 12.2 12RF clonidine HCl 0.1 mg tablet 0.1 mg PO BID azithromycin 250 mg tablet See Rx Instructions PO .COMPLEX Qty: 6 0RF Rx Instructions: For 250 mg dose pack: take 500 mg today (day 1), then 250 mg for 4 days (days 2-5) PO ondansetron 4 mg tablet,disintegrating 4 mg PO BID-TID PRN (Reason: nausea and vomiting) Qty: 30 4RF nitroglycerin 0.4 mg tablet, sublingual 0.4 mg sublingual Q5-15M PRN (Reason: chest pain) Qty: 25 2RF lorazepam 0.5 mg tablet 0.25 mg PO BID PRN (Reason: anxiety) Qty: 30 0RF albuterol sulfate 90 mcg/actuation HFA aerosol inhaler 2 puff INHALATION BID Qty: 8.5 2RF Follow Up/Referrals: Loren Beyer MD [Primary Care Provider] - Stand Alone Forms: [employer] Info Instructions
--- OUTSIDE RECORDS SUMMARY | 2024-07-18 07:43 | XMS_ITS | Encounter Summary ---
Author Organization [place] Address [address] [facility] [address] Care Team Providers Care Head Wood Grinder Name Role Phone Loren Beyer MD Primary Care Provider + Brian Abreu MD Unavailable Sakina Osborne APRN CERTIFIED OPHTHALMIC ASSISTANT Unavailable [phone] Teresa Chiu RN Unavailable Unavaila Meenu Alves DO Unavailable [phone] Encounter Details Date Type Department Care Team (Late st Contact Info) Description 01/24/2023 External Order Results [facility] [address] [place] [address] Outside, Provider Social History Tobacco Use Types Packs/Day Years Used Date Smoking Tobacco: Never Smokeless Tobacco: Never Alcohol Use Standard Drinks/Week Comments No 0 (1 standard drink = 0.6 oz pur e alcohol) Comments No Sex and Gender Information Value Date Recorded Sex Assigned at Not on file 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 us Provider Outside LAB - BLOOD ORDERABLES Edited R [employer] - Final [facility]FT NON-INTERFACED (ONBASE SCANS) [...] on filedocumented in this encounter Care Teams Head Wood Grinder Relationship Specialty Start Date End Date Loren Beyer MD [facility] [address] [address] PCP - General Family Practice 11/15/17 Brian Abreu MD [address] [place] [address] [place] [id number] Assigned Heart and Vascular Provider 02/26/23 05/06/23 Sakina Osborne APRN CERTIFIED OPHTHALMIC ASSISTANT [address] [place] [address] Assigned Heart and Vascular Provider 05/07/23 07/28/23 Teresa Chiu, RN Registered Nurse Cardiology 07/15/23 01/17/24 Meenu Denis DO [address] [place] [id number] Assigned Heart and Vascular Provider 07/29/23 documented as of this encounter
--- OUTSIDE RECORDS SUMMARY | 2024-07-18 07:43 | XMS_ITS | Encounter Summary ---
Author Organization [facility] Address [address] [place] [address] Care Team Providers Care International Trade Teacher Name Role Phone Loren Beyer MD Primary Care Provider + Teresa Chiu RN Unavailable Unavaila Meenu Alves DO Unavailable [phone] Encounter Details Date Type Department Care Team (Late st Contact Info) Description 11/28/2023 External Order Results 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 Gender Identity Not on file Sexual [...] dited Result - Final Performing Organization Address [facility] de Phone Number [facility] NON-INTERFACED [...] dited Result - Final Performing Organization Address [facility] Co de Phone Number [facility]FT NON-INTERFACED [...] dited Result - Final Performing Organization Address City/[facility]/ZIP Co de Phone Number [facility] NON-INTERFACED [...] on filedocumented in this encounter Care Teams International Trade Teacher Relationship Specialty Start Date End Date Loren Beyer MD [facility] [address] [place] [address] PCP - General Family Practice 11/15/17 Teresa Chiu, RN Registered Nurse Cardiology 07/15/23 01/17/24 Meenu Denis DO [address] [place] [address] Assigned Heart and Vascular Provider 07/29/23 documented as of this encounter
--- OUTSIDE RECORDS SUMMARY | 2024-07-18 07:43 | XMS_ITS | Encounter Summary ---
Author Organization [place] Address [address] [facility] 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 [address] [place] [address] PCP - General Family Practice 11/15/17 Teresa Chiu, RN Registered Nurse Cardiology 07/15/23 01/17/24 Meenu Denis DO [address] [place] [address] Assigned Heart and Vascular Provider 07/29/23 documented as of this encounter
--- OUTSIDE RECORDS SUMMARY | 2024-07-18 07:44 | XMS_ITS | Encounter Summary ---
Author Organization [place] Address [address] [facility] [place] [address] Care Team Providers Care Property Staff Accountant Name Role Phone Loren Beyer MD Primary Care Provider + Meenu Denis DO Unavailable [phone] Encounter Details Date Type Department Care Team (Late st Contact Info) Description 06/07/2024 MyC Medical Advice [facility] [address] [place] [address] Javier Hanson Social History Tobacco [...] in an abandoned building, in an overnight halfway, or couch-surfing.) Yes 01/12/2024 Are you worried [...] on file Legal Sex Female 5:08 AM FACTORER Gender Identity Not on file Sexual Orientation Not on file documented as of this encounter Plan of Treatment Not on file documented as of this encounter Visit Diagnoses Not on filedocumented in this encounter Care Teams Property Staff Accountant Relationship Specialty Start Date End Date Loren Beyer MD [facility] & [address] [address] PCP - General Family Practice 11/15/17 Meenu Denis DO [address] [place] [address] Assigned Heart and Vascular Provider 07/29/23 documented as of this encounter
--- OUTSIDE RECORDS SUMMARY | 2024-07-18 07:44 | XMS_ITS | Clinical Summary ---
Author Organization [facility] Address [address] [facility] , [address] [place] [address] Phone Care Team Providers Care Manager Of Broadcast Content Name Role Phone [facility] Unavailable Unava ilable Conditions or Problems Problem Name Problem Code Onset Date Status Entry Date Provider Comment Standard Description Annotate Hand weakness, right 979264104 (SNOMED CT) Active Simon Esquivel MD Weakness of hand Tingling, hand 663045198 (SNOMED CT) Active Simon Esquivel MD Tingling of skin Medications No information available. Medications Administered No information available. Allergies, Adverse Reactions, Alerts No information available. Results Date Name Value Unit Range Flag Description Internal Other: Authorizatio n - OBS [email or web address] Yes Authoriza tion: Release of Information - Authorize [facility] - Payment and Healthcare Operations ROIAUTHOTHER Yes Authoriz ation: Release of Information - Authorize Others/Insurance - Payment and Healthcare Operations HIECONSENT Yes Consent To Release information to the Health Information Exchange (HIE) [email or web address] Yes Authorizat ion: Authorization for [facility] to leave messages, voicemail, send text messages, send emails AUTHRELHCARE Yes Authoriz ation: Release/Retrieval of Information to/from Healthcare Facilities, Pharmacy Benefit Payers and Providers AUTHPRIVPRAC Yes Authoriz ation: Notice of privacy practices AUTHBENEFIT Yes Authoriza tion: Assignment of Benefits and Payment Agreement Internal Other: Verbal Autho rization/Emergency Contact - OBS VERBAL_EMER Done Verbal au thorization and emergency contact Plan of Care No information available. Procedures Code Procedure Name Date Entry Date CPT-44791 Nerve Conduction 5-6 studies CPT-34772 EMG with NCS (5+ muscles) - 1 limb 05/18 Vital Signs No information available. Immunizations No information available. Advance Directives No information available.
--- OUTSIDE RECORDS SUMMARY | 2024-07-18 07:44 | XMS_ITS | Clinical Summary ---
Author Organization [place] Address On license of [facility] [place] [address] Care Team Providers Care Data Administrator Name Role Phone Loren Beyer MD Primary Care Provider + Meenu Denis DO Unavailable [phone] Allergies Active Allergy Reactions Criticality Noted Date [...] sodium chloride (OCEAN) 0.65 % nasal spray [place] 1 spray in nostril daily as needed [...] 50 MG tabletIndication s:Coronary artery disease involving lummi coronary artery of lummi heart without angina pectoris,Benign essential hypertension,Mariana st [...] Department Care Team Description 07/14/2024 Telephone M [facility] Nurse [facility] [address] [place] [address] Nichelle Cazares, project manager retail Refill (Needed her inhaler) 06/07/2024 MyC Medical Advice M [facility] [address] [place] [address] Javier Hanson from Last 3 [...] on file Legal Sex Female 5:08 AM HUMAN RESOURCES ANALYST Gender Identity Not on file Sexual Orientation [...] this topic Medical Devices Implanted Type Area R Developer Device Identifier Shelf Expiration Date Model / Serial / Lot Glenosphere 25mm Mini Baseplate Implanted:Qty: 1 on 01/30/2013 by Jc Farr MD at [facility] Right: Shoulder 11/12/2022 [id number] / / [id number] Humeral Bearing Standard 44-36mm Implanted:Qty: 1 on 01/30/2013 by Jc Farr MD at [facility] Right: Shoulder 10/12/2017 [id number] / / [id number] Implanted:Qty: 1 on 01/30/2013 by Jc Farr MD at [facility] Right: Shoulder 10/12/2022 [id number] / / [id number] 3.5 Hex Fixed Locking Screw [id number] Implanted:Qty: 1 on 01/30/2013 by Jc Farr MD at [facility] Right: Shoulder 12/12/2022 [id number] / / [id number] [id number] Fixed Hex Locking Screw Implanted:Qty: 1 on 01/30/2013 by Jc Farr MD at [facility] Right: Shoulder 12/12/2022 [id number] / / [id number] Hex Fixed Locking Screw Implanted:Qty: 1 on 01/30/2013 by Jc Farr MD at [facility] Right: Shoulder 12/12/2022 [id number] / / [id number] Fixed Locking Screw Implanted:Qty: 1 on 01/30/2013 by Jc Farr MD at [facility] Right: Shoulder 12/12/2022 [id number] / / [id number] Glenosphere 36mm Curve/Standard Implanted:Qty: 1 on 01/30/2013 by Jc Farr MD at [facility] Right: Shoulder 12/12/2022 [id number] / / [id number] 9x83mm Shoulder Stem Implanted:Qty: 1 on 01/30/2013 by Jc Farr MD at [facility] Right: Shoulder 10/12/2022 [id number] / / [id number] Humeral Tray 44mm Standard Implanted:Qty: 1 on 01/30/2013 by Jc Farr MD at [facility] Right: Shoulder 12/12/2022 [id number] / / [id number] Procedures Procedure Name Priority Date/Time Associated Diagnosis [...] - BLOOD ORDERABLES Final Res ult LABORATORY [facility] [address] [facility] Lab (1st floor, no room number) [place] [address], [facility] * (ABNORMAL) CBC with platelets (01/13/2024 [...] LAB - BLOOD ORDERABLES Final Res ult [facility] [address] Lab (1st floor, no room number) [address] * TSH with free T4 reflex (01/12/2024 5:26 AM CDT) Pathologist [facility] TSH 2.47 0.30 - 4.20 uIU/mL 01/12/2024 10:06 AM CDT [facility] LABORATORY Blood BLOOD SPECIMEN / Unknown Venipuncture / Unknown 01/12/2024 5:26 AM CDT 01/12/2024 5:31 AM CDT us Jenise Bailey MD LAB - BLOOD ORDERABLES Fi nal Result [facility] [address] (1st floor, no room number) [place] [id number] [place] [address] * Hepatic function panel (11/28/2023 9:30 AM [...] dited Result - Final Performing Organization Address [facility] de Phone Number GENAROEZE PFT NON-INTERFACED (ONBASE SCANS) * (ABNORMAL) Hemoglobin A1c (11/28/2023 9:30 AM CDT) Pathologist [facility] Hemoglobin A1C (External) 7.4(H) 0 - 5.6 % NON-INTERFACED (ONBASE SCANS) Blood BLOOD SPECIMEN / Unknown 11/28/2023 9:30 AM CDT Narrative BREEZE PFT - 12/23/2023 11:04 AM CDT Verified by Gini Johnson on 12/23/2023. Loren Beyer MD LAB - BLOOD ORDERABLES E dited Result - Final Performing Organization Address City/[facility] de Phone Number GENAROEZE PFT NON-INTERFACED (ONBASE SCANS) * Lipid Profile (01/24/2023 8:51 AM CDT) Pathologist [facility] Triglycerides (External) 60 40 - 149 mg/dL [...] Most Recently Relevant to Health Maintenance Insurance Solv Staffing MEDICARE MEDICA PRIME SOLUTION MEDICARE Advance Directives For more information, please contact: [phone] * No CPR- Do NOT Intubate (Latest Code Status on File) Date Activated Date Inactivated Comments 01/12/2024 6:51 AM 01/13/2024 5:55 PM NO basic or advanced life-sustaining interventions are performed Question Answer Comments Code status determined by: Discussion with patie nt/ legal decision maker * DNR/DNI Date Activated Date Inactivated Comments 01/30/2013 12:12 PM 02/02/2013 12:40 PM Care Teams Data Administrator Relationship Specialty Start Date End Date Loren Beyer MD [facility] [address] [place] [address] PCP - General Family Practice 11/15/17 Meenu Denis DO [address] [place] [address] Assigned Heart and Vascular Provider 07/29/23
--- OUTSIDE RECORDS SUMMARY | 2024-07-18 07:44 | XMS_ITS | Encounter Summary ---
Author Organization [place] Address [facility] [place] [address] Care Team Providers Care Compounding Assistant Name Role Phone Loren Beyer MD Primary Care Provider + Meenu Denis DO Unavailable [phone] Reason for Visit * Reason Onset Date Comments Medication Refill 07/14/2024 Needed her inh aler Encounter Details Date Type Department Care Team (Late st Contact Info) Description 07/14/2024 Telephone M [facility] Nurse [facility] [address] [place] [address] Nichelle Cazares, seal mixing operator Refill (Needed her inhaler) Social History Tobacco Use Types Packs/Day Years [...] an abandoned building, in an overnight senior living, or couch-surfing.) Yes 01/12/2024 Are you worried [...] on file Legal Sex Female 5:08 AM PHYSIOLOGY TEACHER Gender Identity Not on file Sexual Orientation Not on file documented as of this encounter Miscellaneous Notes * Telephone Encounter - Seble Potter RN - 07/14/2024 1:45 PM CST [facility] Pharmacist Jennifer calling. Pt waiting. Have not received refill of albuterol. Loan Auditor called Dr. Gruber again at 1352. Dr. Gruber reports he did send prescription electronically. He will contact pharmacy now. IOLOGY TEACHER * Telephone Encounter - Nichelle Cazares RN - 07/14/2024 9:47 AM PHYSIOLOGY TEACHER Triage call Patient calling she needs a refill of her albuterol inhaler. She uses it twice a day and she did not realize there were no refills left. Paged Dr Gruber and he will call a new prescription in to [facility]. June Cazares RN [facility] Nurse Advisor 10:04 AM 07/14/2024 IOLOGY TEACHER documented in this encounter Plan of Treatment Not on file documented as of this encounter Visit Diagnoses Not on filedocumented in this encounter Care Teams Compounding Assistant Relationship Specialty Start Date End Date Loren Beyer MD [facility] [address] [place] [address] PCP - General Family Practice 11/15/17 Meenu Denis DO [address] [place] [address] Assigned Heart and Vascular Provider 07/29/23 documented as of this encounter
[2024-07-18] MEDS: 0.9 % SODIUM CHLORIDE 500 ML 500 ML IV (15:00)
[2024-07-18 15:06] LABS: Basophils Percent Auto 0.6 % (0.0-3.0); Eosinophils Percent Auto 3.9 % (0.0-7.0); Hematocrit 40.3 % (33.0-51.0); Hemoglobin* 12.4 gm/dL (12.0-16.0); Immature Granulocytes Pct Auto 1.1 %; Lymphocytes Percent Auto 14.8 % (20-44); Mean Corpuscular HGB Conc 31 gm/dL (32-36); Mean Corpuscular Hemoglobin 24 pg (26-34); Mean Corpuscular Volume 79 fL (80-100); Neutrophils Percent Auto 70.6 % (42.0-72.0); Platelet Count* 244 K/uL (140-440); RDW Coefficient of Variation % 15.8 % (11.5-15.5)
[2024-07-18 15:08] LABS: Slide Review Reflex No
[2024-07-18 15:27] LABS: Albumin* 4.4 g/dL (3.3-5.0); Chloride* 94 mmol/L (96-114); Sodium* 134 mmol/L (135-149)
[2024-07-18 15:30] LABS: Alanine Aminotransferase* 18 U/L (4-35); Alkaline Phosphatase* 63 U/L (40-150); Anion Gap 10 mEq/L (7-15); Aspartate Amino Transferase* 26 U/L (12-35); Bilirubin Direct* 0.1 mg/dL (0.0-0.5); Bilirubin Total* 0.5 mg/dL (0.1-1.5); Blood Urea Nitrogen* 19 mg/dL (7-30); Carbon Dioxide* 30 mmol/L (20-32); Creatinine* 0.8 mg/dL (0.5-1.5); Est. Creatinine Clearance* 31.35; Estimated Glomerular Filt Rate 71 ml/min; Glucose* 166 mg/dL (60-115); Total Protein* 7.9 g/dL (6.0-8.3)
[2024-07-18 15:37] LABS: INR 0.91 (0.91-1.10)
[2024-07-18 15:38] LABS: Partial Thromboplastin Time* 27 Seconds (23-33)
--- NOTE | 2024-07-18 16:19 | PM.IMHP1 ---
Hospitalist- H&P: HPI History of Present Illness Date Seen: 07/18/24 Chief complaint: Nosebleed Narrative: Ally Unger is a 88 year old female with past medical history of hypertension, hyperlipidemia, diabetes controlled with diet, history of coronary artery disease/ PA, with stents in 2022, SIADH, hypothyroidism, chronic idiopathic urticaria (on prednisone p.o.) who presents with epistaxis to our ED today. Patient reported that her nosebleed started around 11:00 p.m. last night. She does get nosebleeds several times per week, most do stop on their own without any treatment. Patient denies any trauma or history of bleeding other than her nosebleeds. She is on Plavix for coronary artery disease/stents because she is allergic to aspirin (rash). At the ED, patient was hypertensive. She was given 1 mL of TXA, applied to the anterior plexus in the nasal clamping, but bleeding continued. ED provider contacted our ENT doctor, who was briefed on the case and recommended holding Plavix and admission for monitoring of the bleeding. Review of Systems Status of ROS: Reports: 6 or more systems reviewed and unremarkable except as noted in History and below PFSH PFSH Medical History Depression with anxiety ?F41.8 - Other specified anxiety disorders (ICD-10) History of epistaxis ?Z87.898 - Personal history of other specified conditions (ICD-10) Cubital tunnel syndrome on right ?G56.21 - Lesion of ulnar nerve, right upper limb (ICD-10) Osteoarthritis of carpometacarpal (CMC) joint of left thumb ?M18.12 - Unilateral primary osteoarthritis of first carpometacarpal joint, left hand (ICD-10) Greater trochanteric bursitis of both hips ?M70.61 - Trochanteric bursitis, right hip (ICD-10) ?M70.62 - Trochanteric bursitis, left hip (ICD-10) ST elevation (STEMI) myocardial infarction (01/04/23) ?I21.3 - ST elevation (STEMI) myocardial infarction of unspecified site (ICD-10) Fracture of right ulnar styloid ?S52.611A - Displaced fracture of right ulna styloid process, initial encounter for closed fracture (ICD-10) Personal history of gallstones ?Z87.19 - Personal history of other diseases of the digestive system (ICD-10) Iron deficiency anemia ?D50.9 - Iron deficiency anemia, unspecified (ICD-10) Functional dyspepsia ?K30 - Functional dyspepsia (ICD-10) Diverticulitis large intestine w/o perforation or abscess w/o bleeding ?K57.32 - Diverticulitis of large intestine without perforation or abscess without bleeding (ICD-10) Chronic nausea ?R11.0 - Nausea (ICD-10) Thyroid nodule ?E04.1 - Nontoxic single thyroid nodule (ICD-10) Chronic vertigo ?R42 - Dizziness and giddiness (ICD-10) Benign gastric polyp ?K31.7 - Polyp of stomach and duodenum (ICD-10) Diabetes mellitus ?E11.9 - Type 2 diabetes mellitus without complications (ICD-10) Epistaxis ?R04.0 - Epistaxis (ICD-10) Temporal headache ?R51.9 - Headache, unspecified (ICD-10) Throat clearing ?R09.89 - Other specified symptoms and signs involving the circulatory and respiratory systems (ICD-10) Tetanus vaccine side effect ?T50.A95A - Adverse effect of other bacterial vaccines, initial encounter (ICD-10) Statin intolerance ?Z78.9 - Other specified health status (ICD-10) Perforated nasal septum ?J34.89 - Other specified disorders of nose and nasal sinuses (ICD-10) History of chronic eczema ?Z87.2 - Personal history of diseases of the skin and subcutaneous tissue (ICD-10) Environmental allergies ?Z91.09 - Other allergy status, other than to drugs and biological substances (ICD-10) Aspirin allergy ?Z88.8 - Allergy status to other drugs, medicaments and biological substances (ICD-10) Hyponatremia ?E87.1 - Hypo-osmolality and hyponatremia (ICD-10) Health care directive on file ?Z78.9 - Other specified health status (ICD-10) Surgical History History of carpal tunnel surgery of right wrist (05/19/23) ?Z98.890 - Other specified postprocedural states (ICD-10) H/O wisdom tooth extraction ?K08.409 - Partial loss of teeth, unspecified cause, unspecified class (ICD-10) History of heart artery stent (01/04/23) ?Z95.5 - Presence of coronary angioplasty implant and graft (ICD-10) History of esophageal dilatation (2018) ?Z98.890 - Other specified postprocedural states (ICD-10) History of tonsillectomy and adenoidectomy ?Z90.89 - Acquired absence of other organs (ICD-10) History of dilation and curettage ?Z98.890 - Other specified postprocedural states (ICD-10) 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 Social History Narrative: - 2 adult daughters, little/no contact, closest to foster son KAMRON, independent living [facility], [facility] Lifetime non-smoker does not drink alcohol Physical activity: housework, laundry cooking, stretch she has 15 minutes 3 times a week What is your current living situation?: I presently have a place to live Problems where you live: no known problems In the past 12 months, utilities in danger of being shut off: no In past 12 months, lack of transportation kept you from medical appts, meetings, work, or getting things needed for daily living: no In the past 12 mos, have been you worried that your food would run out before you had money to buy more?: never true In the past 12 mos, the food you bought just didn't last and you didn't have money to buy more?: never true Smoking Status: Never smoker Do you use any of these nicotine containing products: None How often do you have a drink containing alcohol: never How often do you have six or more drinks on one occasion: Never AUDIT-C Alcohol total score: 0 Non-prescribed substance use: denies use How often does anyone, including family, friends and others, physically hurt you: never How often does anyone, including family, friends and others, insult or talk down to you: never How often does anyone, including family, friends and others, threaten you with harm: never How often does anyone, including family, friends and others, scream or curse at you: never service: No Meds Home Medications and Allergies Home Medications ?Medication ?Instructions ?Recorded ?Confirmed ?Type calcium carbonate (Tums E-X) 300 mg PO .prn PRN 01/28/22 06/14/24 History sodium chloride 0.65 % nasal spray 1 spray intranasal .prn 01/28/22 06/14/24 History aerosol (Saline Nasal) simethicone 125 mg capsule (Gas 125 mg PO BID-QID PRN 04/30/22 06/14/24 History Relief (simethicone)) polyethylene glycol 3350 17 4 g PO ONCE PRN 01/27/23 06/14/24 History gram/dose oral powder (Miralax) calcium 600 mg (as cap PO DAILY 07/07/23 06/14/24 History carbonate)-vitamin D3 12.5 mcg (500 unit) capsule (Calcium with Vit D3) lactase 9,000 unit chewable tablet 9,000 unit PO ONCE PRN 07/07/23 06/14/24 History (Lactaid Fast Act) multivitamin (Daily Multi-Vitamin 1 tab PO DAILY 07/07/23 06/14/24 History tablet) betamethasone, augmented 0.05 % topical 03/08/24 06/14/24 History lotion ketoconazole 2 % shampoo topical 03/08/24 06/14/24 History triamcinolone acetonide 0.1 % 1 applic topical BID-TID 03/08/24 06/14/24 History topical cream clonidine HCl 0.1 mg tablet 0.1 mg PO BID hypertension 06/14/24 History Allergies Allergy/AdvReac Type Severity Reaction Status Date / Time codeine Allergy Severe Hallucinati Verified 06/14/24 13:27 ng hydrocodone Allergy Severe confusion/h Verified 06/14/24 13:27 allucinatin g oxycodone Allergy Severe Confusion Verified 06/14/24 13:27 penicillin V Allergy Severe Anaphylaxis Verified 06/14/24 13:27 rosuvastatin Allergy Severe Swelling Verified 06/14/24 13:27 of Lip/Tongue/Throat amlodipine Allergy Intermediate Flushing Verified 06/14/24 13:27 bisacodyl (From Dulcolax Allergy Intermediate rash/scalp, Verified 06/14/24 13:27 (bisacodyl)) redness to eyelid hydromorphone Allergy Intermediate mental Verified 06/14/24 13:27 changes lisinopril Allergy Intermediate itchy Verified 06/14/24 13:27 metformin Allergy Intermediate nausea, Verified 06/14/24 13:27 diarrhea aspirin Allergy Mild Rash Verified 06/14/24 13:27 atorvastatin Allergy Mild Rash Verified 06/14/24 13:27 calcitonin Allergy Mild Rash Verified 06/14/24 13:27 loratadine Allergy Mild Rash Verified 06/14/24 13:27 alendronate sodium Allergy Unknown Verified 06/14/24 13:27 lorazepam Allergy severe Verified 06/14/24 13:27 hallucinations montelukast Allergy Hallucinati Verified 06/14/24 13:27 ng peas Allergy Anaphylaxis Verified 06/14/24 13:27 Sulfa (Sulfonamide Allergy Anaphylaxis Verified 06/14/24 13:27 Antibiotics) mometasone furoate (From AdvReac Headache Verified 06/14/24 13:27 Asmanex Twisthaler) Exam Narrative: Exam Narrative: Physical exam GENERAL: frail, no acute distress. HEAD AND NECK: Atraumatic, normocephalic, with clean nasal pack. CARDIOVASCULAR: RRR. Normal S1, S2. No murmurs. RESPIRATORY: Good air entry B/L. +ve for few wheezes. NEUROLOGY: Alert, awake, oriented X 3. Normal speech. PSYCH: Anxious. Const: Vital Signs, click to edit/add: Vital Signs - 24 hr 07/18/24 07:09 07/18/24 10:09 Pulse Rate [Right Pulse Oximeter] 74 Respiratory Rate 18 Blood Pressure [Ri ght Upper Arm] 259/102 H 192/78 H Pulse Oximetry 98 Oxygen Delivery Me thod Room Air Hospitalist - H&P: Result Labs Labs: Short CBC 07/18/24 Range/Units 14:57 WBC 11.40 H (4.50-11.00) K/uL Hgb 12.4 (12.0-16.0) gm/dL Hct 40.3 (33.0-51.0) % Plt Count 244 (140-440) K/uL BMP 07/18/24 14:57 Sodium 134 L Potassium 3.0 L Chloride 94 L Carbon Dioxide 30 BUN 19 Creatinine 0.8 Glucose 166 H Calcium 9.0 Liver Function 07/18/24 Range/Units 14:57 Total Bilirubin 0.5 (0.1-1.5) mg/dL Direct Bilirubin 0.1 (0.0-0.5) mg/dL AST 26 (12-35) U/L ALT 18 (4-35) U/L Alkaline Phosphatase 63 (40-150) U/L Albumin 4.4 (3.3-5.0) g/dL ECG Attestation: I personally reviewed and interpreted this ECG as follows: ECG interpretation date: 07/18/24 Interpretation: Sinus rhythm with left axis deviation, insignificant T wave changes Assessment and Plan Assessment and plan (1) Acute anterior epistaxis: Problem comment: -on Plavix for coronary artery disease/stents because she is allergic to aspirin (rash). At the ED, she was given 1 mL of TXA, applied to the anterior plexus in the nasal clamping, but bleeding continued. -ED provider contacted our ENT doctor, who was briefed on the case and recommended holding Plavix and admission for monitoring of the bleeding. -trend hemoglobin -hold Plavix -controlled blood pressure Status: Acute (2) CAD (coronary artery disease): Problem comment: History of STMI 12/2022 got 2 [address] douglas Elmore, also enrolled in cardiomyopathy program Status: Chronic (3) Ischemic cardiomyopathy: Problem comment: EF 30-35%, did have a new echo no results here Status: Acute (4) Hypertension: Problem comment: Losartan 50 mg increased to twice a day + Clonidine 0.1 BID Status: Chronic (5) Depression with anxiety: Problem comment: Uses sertraline and p.r.n. Ativan Status: Chronic (6) Multiple drug allergies: Status: Acute (7) SIADH (syndrome of inappropriate ADH production): Problem comment: Chronic, around 133, [place] endo: SIADH, fluid restriction made dehydrated, now uses salt with everything Status: Chronic (8) Diabetes mellitus type 2 in nonobese: Problem comment: diet controlled, not tolerating meds Status: Chronic (9) Chronic idiopathic urticaria: Problem comment: takes 5 mg daily/ eczema Status: Chronic Total Time Spent Total Time Spent: Time spent: Today I spent 75 minutes seeing the patient, discussing the patient with ER staff, reviewing Expanse and EPIC notes/diagnostics, discussing the care plan with our care time that includes social work, PT/OT, pharmacy, RT, fci and documenting my impressions and plan in the medical record.
[2024-07-18] MEDS: POTASSIUM CHLORIDE 10 MEQ CAPSULE ER 40 MEQ PO (17:28)
[2024-07-18] MEDS: cloNIDine HCL 0.1 MG TABLET PO (17:54)
[2024-07-18] MEDS: OMEPRAZOLE 20 MG CAPSULE DR PO (17:54)
[2024-07-18] MEDS: LOSARTAN POTASSIUM 50 MG TABLET PO (17:55)
[2024-07-18] MEDS: SERTRALINE 50 MG TABLET PO (17:55)
[2024-07-18] MEDS: CALCIUM CARBONATE 500 MG CHEW PO (18:32)
[2024-07-18] MEDS: ALBUTEROL INHALER 2 PUFF IH (18:32)
[2024-07-18 19:23] LABS: Hemoglobin A1C* 7.7 % (0-5.6)
--- NOTE | 2024-07-18 19:23 | PC.NURSE ---
VSS remain stable. Denies pain. Bowels sounds active. Changed nose dressing. Ambulates SBA. Tolerating clear liquid diet. 2 rhino rockets intact. On RA.
[2024-07-18] MEDS: SODIUM CHLORIDE 0.9 % (FLUSH) 10 ML SYRINGE 5 ML IVF (20:28)
[2024-07-18 20:29] LABS: Hemoglobin* 11.9 gm/dL (12.0-16.0)
[2024-07-18] MEDS: 0.9 % SODIUM CHLORIDE 500 ML 500 ML 100 ML IV (20:40)
[2024-07-18] MEDS: PANTOPRAZOLE SODIUM 40 MG INJ IVP (20:50)
[2024-07-19 03:00] VITALS: BP 142/68; PULSE 60; RESP 16; TEMP 36.8; O2SAT 91
[2024-07-19] MEDS: LEVOTHYROXINE 25 MCG TABLET PO (06:39)
[2024-07-19] MEDS: ALBUTEROL INHALER 2 PUFF IH ×2 (06:39→18:54)
[2024-07-19 06:55] LABS: Hematocrit 36.9 % (33.0-51.0); Hemoglobin* 11.1 gm/dL (12.0-16.0); Mean Corpuscular HGB Conc 30 gm/dL (32-36); Mean Corpuscular Hemoglobin 24 pg (26-34); Mean Corpuscular Volume 81 fL (80-100); Platelet Count* 233 K/uL (140-440); Red Blood Count 4.58 m/uL (4.00-5.20); White Blood Count* 11.31 K/uL (4.50-11.00)
--- NOTE | 2024-07-19 06:56 | PC.NURSE ---
End of shift report [id number]: Alert and oriented x 4. Gauze dressing intact to under nares, science writer changed dressing x 1 and was 25% saturated with zohreh red blood, no active bleeding noted from nares but patient reports feeling it trickle down the back of her throat. At 1999 patient reporting feeling faint, vitals obtained and MD notified, new order for 500 cc bolus of normal saline to run at 100cc/hr. Patient reports symptoms resolved after bolus. Blood pressures documented in expanse and at baseline per patient report. SBA with ambulation and transfers for safety. Nausea reported x 1, PRN ondansetron effective for nausea. Tolerating clear liquid diet.
[2024-07-19 07:00] VITALS: BP 180/75; PULSE 82; PULSE 91; RESP 18; TEMP 37.1; O2SAT 92
[2024-07-19 07:00] LABS: Slide Review Reflex No
[2024-07-19 07:09] LABS: Chloride* 102 mmol/L (96-114); Potassium* 3.9 mmol/L (3.6-5.1); Sodium* 135 mmol/L (135-149)
[2024-07-19 07:11] LABS: Blood Urea Nitrogen* 16 mg/dL (7-30); Creatinine* 0.9 mg/dL (0.5-1.5); Est. Creatinine Clearance* 31.35; Estimated Glomerular Filt Rate 62 ml/min
[2024-07-19 07:12] LABS: Anion Gap 6 mEq/L (7-15); Calcium* 8.1 mg/dL (8.4-10.6); Carbon Dioxide* 27 mmol/L (20-32); Glucose* 109 mg/dL (60-115)
[2024-07-19] MEDS: SODIUM CHLORIDE 0.9 % (FLUSH) 10 ML SYRINGE 5 ML IVF ×2 (07:57→21:33)
[2024-07-19] MEDS: LOSARTAN POTASSIUM 50 MG TABLET PO ×2 (07:57→18:26)
[2024-07-19] MEDS: cloNIDine HCL 0.1 MG TABLET PO ×2 (07:57→18:26)
[2024-07-19] MEDS: predniSONE 5 MG TABLET PO (07:57)
[2024-07-19 11:00] VITALS: BP 144/71; PULSE 81; RESP 18; TEMP 36.8; O2SAT 92
[2024-07-19] MEDS: EZETIMIBE 10 MG TABLET PO (11:42)
[2024-07-19] MEDS: CALCIUM CARBONATE 500 MG CHEW PO ×2 (11:59→18:54)
[2024-07-19 15:00] VITALS: BP 189/90; PULSE 71; PULSE 85; RESP 18; TEMP 37.2; O2SAT 94
--- NOTE | 2024-07-19 16:18 | PM.IMPN1 ---
Progress Note: A&P Assessment and plan (1) Acute anterior epistaxis: Problem details: -on Plavix for coronary artery disease/stents because she is allergic to aspirin (rash). At the ED, she was given 1 mL of TXA, applied to the anterior plexus in the nasal clamping, but bleeding continued. -ED provider contacted our ENT doctor, who was briefed on the case and recommended holding Plavix and admission for monitoring of the bleeding. -trend hemoglobin - stable 12.4 ->11.9 -> 11.1 -hold Plavix per ENT request -controlled blood pressure 07/[address] Aguilar, ENT. Wants to leave bilateral packings in overnight for 1 more night. He will see her tomorrow on 07/20 to remove 1 packing and reinflate other balloon. Initiate oral antibiotic - doxycycline in setting of penicillin allergy. Likely discharge to home tomorrow. Okay for regular diet as tolerated. Status: Acute (2) CAD (coronary artery disease): Problem details: [facility]22 got [address] st[address] [employer] [address] douglas Elmore, also enrolled in cardiomyopathy program Status: Chronic (3) Ischemic cardiomyopathy: Problem details: EF 30-35%, did have a new echo no results here Status: Acute (4) Hypertension: Problem details: Losartan 50 mg increased to twice a day + Clonidine 0.1 BID Status: Chronic (5) Depression with anxiety: Problem details: Uses sertraline and p.r.n. Ativan Status: Chronic (6) Multiple drug allergies: Problem details: Noted, including penicillin allergy Status: Acute (7) SIADH (syndrome of inappropriate ADH production): Problem details: Chronic, around 133, [place] end[facility]: SIADH, fluid restriction made dehydrated, now uses salt with everything Status: Chronic (8) Diabetes mellitus type 2 in nonobese: Problem details: diet controlled, not tolerating meds Status: Chronic (9) Chronic idiopathic urticaria: Problem details: takes 5 mg daily/ eczema Status: Chronic Plan ENT to see her on 07/20 with discharge to home Time Spent With Patient Total time spent: Today I spent 45 minutes seeing the patient, discussing the patient with ER staff, reviewing Expanse and Epic notes/diagnostics, discussing the care plan with our team that includes social work, PT/OT, pharmacy, RT, mcc and documenting my impressions and plan in the medical record. Subjective Date Seen: 07/19/24 Interval history: Patient is seen lying in bed this morning. Is quite anxious. Concerned that she has been on clear liquids and needs to increase her sodium in her diet and needs to take food with her pills. Denies headache or dizziness. Denies face pain or facial discomfort despite bilateral nasal packing. Reports clearing some bloody clots from her throat but no longer feels she is swallowing blood. No nausea or vomiting. Remains afebrile. Exam Narrative: Exam Narrative: PHYSICAL EXAM General: Pleasant, anxious, conversant, otherwise NAD HEENT: Bilateral nasal packings in place Cardiovascular: RRR, S1S2. No pitting edema Pulmonary: CTA bilaterally without rhonchi, rales, expiratory wheezes. No dyspnea on room air Neurological: Alert, answering questions appropriately, cranial nerves intact, no focal findings Extremities: No gross joint deformity or swelling. AROMI. Neurovascularly intact Skin: Warm, dry. Const: Vital Signs, click to edit/add: Vital Signs - 24 hr 07/18/24 17:09 07/18/24 17:09 07/18/24 19:00 Temperature 98.6 F 97.0 F L Pulse Rate Pulse Rate [Pulse Oximeter] 68 58 L Respiratory Rate 16 16 18 Blood Pressure [Le ft Arm] 240/95 H 105/57 L Pulse Oximetry 98 98 90 Oxygen Delivery [facility] Room Air Room Air Room Air 07/18/24 20:00 07/18/24 20:20 07/18/24 21:15 Temperature Pulse Rate Pulse Rate [Pulse Oximeter] 65 67 67 Respiratory Rate 20 18 16 Blood Pressure [Le ft Arm] 213/87 H 169/71 H 138/64 Pulse Oximetry 91 92 Oxygen Delivery Or thod 07/18/24 23:00 07/18/24 23:00 07/18/24 23:00 Temperature 98.0 F Pulse Rate 72 Pulse Rate [Pulse Oximeter] 60 61 Respiratory Rate 18 18 Blood Pressure [Le ft Arm] 134/56 L Pulse Oximetry 92 Oxygen Delivery [facility] Room Air 07/19/24 03:00 07/19/24 07:00 07/19/24 07:00 Temperature 98.3 F 98.7 F Pulse Rate 82 Pulse Rate [Pulse Oximeter] 60 91 Respiratory Rate 16 18 Blood Pressure [Le ft Arm] 142/68 H 180/75 H Pulse Oximetry 91 92 Oxygen Delivery Me thod Room Air Room Air 07/19/24 11:00 07/19/24 15:00 Temperature 98.2 F Pulse Rate 71 Pulse Rate [Pulse Oximeter] 81 Respiratory Rate 18 Blood Pressure [Le ft Arm] 144/71 H Pulse Oximetry 92 Oxygen Delivery Me thod Room Air Labs Labs: Laboratory Results - last 24 hr 07/18/24 07/18/24 07/19/24 14:57 20:24 06:45 WBC 11.31 H RBC 4.58 Hgb 11.9 L 11.1 L Hct 36.9 MCV 81 MCH 24 L MCHC 30 L Plt Count 233 Sodium 135 Potassium 3.9 Chloride 102 Carbon Dioxide 27 Anion Gap 6 L BUN 16 Creatinine 0.9 Estimated Creat Clear 31.35 Estimated GFR 62 Glucose 109 Hemoglobin A1c 7.7 H Calcium 8.1 L Magnesium 2.0
[2024-07-19] MEDS: OMEPRAZOLE 20 MG CAPSULE DR PO (17:11)
[2024-07-19] MEDS: SERTRALINE 50 MG TABLET PO (18:27)
--- NOTE | 2024-07-19 18:48 | PC.NURSE ---
End of shift report [id number]: AxOx4. Cooperative with cares. Gauze dressing intact to under nares, press writer changed dressing x 2. Blood/mucus was present during dressing change. Patient reports feeling blood run down the back of her throat intermittently. SBA when using the bathroom. Denies nausea and pain throughout the shift. Pt tolerating reg diet/fluids well. Pt had a visitor during the evening. Call light within reach.
[2024-07-19] MEDS: SIMETHICONE 80 MG TAB.CHEW PO (18:54)
[2024-07-19 19:00] VITALS: BP 142/60; PULSE 64; RESP 18; TEMP 36.3; O2SAT 97
[2024-07-19] MEDS: ONDANSETRON ODT 4 MG TAB PO (20:18)
[2024-07-19] MEDS: DOXYCYCLINE HYCLATE 100 MG PO (21:33)
[2024-07-19 23:00] VITALS: BP 132/58; PULSE 64; PULSE 71; PULSE 73; RESP 16; RESP 18; TEMP 36.9; O2SAT 97
[2024-07-20 03:00] VITALS: BP 144/64; PULSE 74; RESP 18; TEMP 36.7; O2SAT 93
[2024-07-20] MEDS: ONDANSETRON ODT 4 MG TAB PO (03:02)
[2024-07-20] MEDS: NITROGLYCERIN 0.4 MG TAB.SUBL SUBLINGUAL (06:24)
[2024-07-20] MEDS: LEVOTHYROXINE 25 MCG TABLET PO (06:30)
[2024-07-20 06:37] LABS: Hematocrit 36.3 % (33.0-51.0); Mean Corpuscular HGB Conc 30 gm/dL (32-36); Mean Corpuscular Hemoglobin 24 pg (26-34); Mean Corpuscular Volume 79 fL (80-100); Platelet Count* 198 K/uL (140-440); Red Blood Count 4.57 m/uL (4.00-5.20); White Blood Count* 9.52 K/uL (4.50-11.00)
[2024-07-20 06:44] LABS: Slide Review Reflex No
--- NOTE | 2024-07-20 06:47 | PC.NURSE ---
End of shift report [id number]: Alert and oriented x 4. Denies any pain or shortness of breath. Nausea well managed with PRN ondansetron. Dressing to nares changed x 3 this shift with mark 25-30% saturated with bright red blood. Requesting SBA with ambulation to bathroom due to increased weakness. At 0620 patient reporting tightness over breastbone, patient requesting PRN nitro to relieve pressure. BP 176/64 prior to administration of Nitro, 5 minutes after administration BP 158/72 and patient reporting moderate relief of pressure and requested to wait on administering a second nitro. 10 minutes post administration and patiet reporting relief of chest pressure/tightness, BP 152/80. Assisted to bathroom, denies any lightheadedness. Instructed to utilize call light if pressure/tightness returns.
[2024-07-20 07:00] VITALS: BP 150/74; PULSE 82; RESP 18; TEMP 37.3; O2SAT 93
[2024-07-20 07:40] VITALS: PULSE 74
[2024-07-20] MEDS: LOSARTAN POTASSIUM 50 MG TABLET PO (08:30)
[2024-07-20] MEDS: DOXYCYCLINE HYCLATE 100 MG PO (08:30)
[2024-07-20] MEDS: cloNIDine HCL 0.1 MG TABLET PO (08:30)
[2024-07-20] MEDS: predniSONE 5 MG TABLET PO (08:30)
[2024-07-20 11:00] VITALS: BP 145/70; PULSE 70; RESP 18; O2SAT 94
[2024-07-20] MEDS: ALBUTEROL INHALER 2 PUFF IH (12:42)
[2024-07-20] MEDS: EZETIMIBE 10 MG TABLET PO (12:48)
[2024-07-20] MEDS: CALCIUM CARBONATE 500 MG CHEW PO (12:48)
--- NOTE | 2024-07-20 14:24 | PM.DS1 ---
DS: Providers Provider Date Seen: 07/20/24 Date of admission: 07/18/24 15:22 Primary care physician: Loren Beyer MD Admitting Clinician: Danae Ahumada MD Consults: Dr. Edelmira Aguilar, ENT Attending Physician on discharge: Luisa Choudhary [facility] Date of Discharge: 07/20/24 DS: Diagnosis Discharge Diagnosis (1) Acute anterior epistaxis: Status: Acute Problem details: -on Plavix for coronary artery disease/stents because she is allergic to aspirin (rash). At the ED, she was given 1 mL of TXA, applied to the anterior plexus in the nasal clamping, but bleeding continued. -ED provider contacted our ENT doctor, who was briefed on the case and recommended holding Plavix and admission for monitoring of the bleeding. -trend hemoglobin - stable 12.4 ->11.9 -> 11.1 -hold Plavix per ENT request -controlled blood pressure 07/[address] Aguilar, ENT. Wants to leave bilateral packings in overnight for 1 more night. He will see her tomorrow on 07/20 to remove 1 packing and reinflate other balloon. Initiate oral antibiotic - doxycycline in setting of penicillin allergy. Likely discharge to home tomorrow. Okay for regular diet as tolerated. On day of discharge, patient is seen by Dr. Aguilar. Left nasal packing is removed. Right nasal packing remains in place. Patient has only slight occasional drainage from left nare while being observed for several hours. Discussed again with ENT. Okay to discharge home with ENT instructions and follow-up. Will continue on doxycycline for 5 days or until packing is removed. Holding Plavix until follow-up with ENT - patient plans to discuss with PCP if she needs to restart this at all as she has been on it for nearly 18 months. (2) CAD (coronary artery disease): Status: Chronic Problem details: History of [facility] 12/2022 got [address] douglas Elmore, also enrolled in cardiomyopathy program (3) Ischemic cardiomyopathy: Status: Acute Problem details: EF 30-35%, did have a new echo no results here (4) Hypertension: Status: Chronic Problem details: Losartan 50 mg increased to twice a day + Clonidine 0.1 BID (5) Depression with anxiety: Status: Chronic Problem details: Uses sertraline and p.r.n. 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 Course of care and details as noted above. Seen by ENT on 07/20/2024, discharge with right nasal packing in place, on doxycycline, holding Plavix. Outpatient follow-up in ENT clinic on Tuesday. Remainder of chronic medical comorbidities were monitored and managed with home medications. Status at Discharge Functional status at discharge: independent ambulation Overall status at discharge: patient is back to baseline Time Spent with Patient Time attestation: Total time spent providing and/or coordinating discharge services: Time spent: Greater than 30 minutes Exam Narrative: Exam Narrative: PHYSICAL EXAM General: Pleasant, conversant, NAD HEENT: Nasal packing in place right nare, left nare dried blood, no active bloody PND Cardiovascular: RRR Pulmonary: No dyspnea Neurological: Alert, answering questions appropriately Skin: Warm, dry. Const: Vital Signs, click to edit/add: Vital Signs - 24 hr 07/19/24 15:00 07/19/24 15:00 07/19/24 19:00 Temperature 99 F 97.4 F L Pulse Rate 71 Pulse Rate [Pulse Oximeter] 85 64 Respiratory Rate 18 18 Blood Pressure [Le ft Arm] 189/90 H 142/60 H Blood Pressure [Ri ght Arm] Pulse Oximetry 94 97 Oxygen Delivery Me thod Room Air Room Air 07/19/24 23:00 07/19/24 23:00 07/19/24 23:00 Temperature 98.5 F Pulse Rate 73 Pulse Rate [Pulse Oximeter] 64 71 Respiratory Rate 18 16 Blood Pressure [Le ft Arm] 132/58 L Blood Pressure [Ri ght Arm] Pulse Oximetry 97 Oxygen Delivery Me thod Room Air 07/20/24 03:00 07/20/24 07:00 07/20/24 07:00 Temperature 98.1 F 99.1 F Pulse Rate Pulse Rate [Pulse Oximeter] 74 82 82 Respiratory Rate 18 18 18 Blood Pressure [Le ft Arm] 144/64 H 150/74 H Blood Pressure [Ri ght Arm] Pulse Oximetry 93 93 Oxygen Delivery Me thod Room Air Room Air 07/20/24 07:40 07/20/24 11:00 Temperature Pulse Rate 74 Pulse Rate [Pulse Oximeter] 70 Respiratory Rate 18 Blood Pressure [Le ft Arm] Blood Pressure [Ri ght Arm] 145/70 H Pulse Oximetry 94 Oxygen Delivery Me thod Room Air DS: Data Data Completed and Pending Labs on day of discharge: Labs from last 24 hours 07/20/24 06:20 WBC 9.52 RBC 4.57 Hgb 11.0 L Hct 36.3 MCV 79 L MCH 24 L MCHC 30 L Plt Count 198 Discharge Plan Discharge Disposition: Home, Self-Care Date of Admission: 07/18/24 15:22 Attending Provider on Discharge: Luisa Choudhary Consulting Providers: Demar Aguilar Primary Care Provider: Loren Beyer Condition: Improved Anticipated Discharge Date/Time: 07/20/24 14:18 Discharge Medications: New doxycycline hyclate 100 mg Tablet 100 mg PO BID 5 Days Qty: 10 0RF Continued simethicone [Gas Relief (simethicone)] 125 mg capsule 125 mg PO BID@1230,1830 Rx Instructions: AFTER LUNCH AND DINNER polyethylene glycol 3350 [Miralax] 17 gram/dose powder 17 g PO DAILY PRN calcium carbonate-vitamin D3 [Calcium 600 with Vitamin D3] 600 mg-12.5 mcg (500 unit) capsule 1 cap PO DAILY Saline Nasal 0.65 % aerosol,spray 1 spray intranasal BID PRN multivitamin [Daily Multi-Vitamin] Tablet 1 tab PO DAILY@12 Lactaid Fast Act 9,000 unit tablet,chewable 9,000 unit PO DAILY PRN Rx Instructions: administer with dairy as needed triamcinolone acetonide 0.1 % cream 1 applic topical BID-TID PRN ketoconazole 2 % shampoo 1 applic topical DIRECTED PRN betamethasone, augmented 0.05 % lotion 1 applic topical DAILY PRN sertraline 50 mg tablet 50 mg PO QPM Qty: 90 3RF prednisone 5 mg tablet 5 mg PO QAM Qty: 90 3RF levothyroxine 25 mcg tablet 25 mcg PO DAILY Qty: 90 4RF clonidine HCl 0.1 mg tablet 0.1 mg PO BIDWM Patient Comments: PLUS ADDITIONAL DOSE AT NOON IF NEEDED calcium carbonate 500 mg calcium (1,250 mg) tablet,chewable 500 mg PO BID@1230,1830 Rx Instructions: AFTER LUNCH AND DINNER Artificial Tears (cmc) 1 % drops 1 drp ophthalmic (eye) BID PRN losartan 50 mg tablet 50 mg PO BIDWM omeprazole 20 mg capsule,delayed release(DR/EC) 20 mg PO DAILY@1730 Rx Instructions: BEFORE EVENING MEAL albuterol sulfate 90 mcg/actuation HFA aerosol inhaler 2 puff INHALATION BID@0630,1830 ezetimibe 10 mg tablet 10 mg PO DAILY@12 Alvesco 160 mcg/actuation HFA aerosol inhaler 2 inh inhalation BID@0630,1830 chlorpheniramine maleate [Allergy-Time] 4 mg tablet 2 mg PO DAILY PRN ondansetron 4 mg tablet,disintegrating 4 mg PO BID-TID PRN (Reason: nausea and vomiting) Qty: 30 4RF nitroglycerin 0.4 mg tablet, sublingual 0.4 mg sublingual Q5-15M PRN (Reason: chest pain) Qty: 25 2RF lorazepam 0.5 mg tablet 0.25 mg PO BID PRN (Reason: anxiety) Qty: 30 0RF Held clopidogrel 75 mg tablet 75 mg PO DAILY@12 Hold Instructions: Resume on 08/03/24. Do not resume until discussed with ENT and PCP Discharge Orders: Discharge Order (Routine); Ordered 07/20/24 Ordered By: Luisa Choudhary Patient Education: Nosebleed (ED) Additional Instructions: As we discussed, the TXA medication was successful in getting the nosebleed to stop. Remember that the clots that are over the area of bleeding are not yet mature and will continue to set up over the next few hours. Please try not to blow your nose for the next 24 hours. Continue taking your antihypertensives to do your best to keep your blood pressure under 180. If the nosebleed restarts, apply the clamp and lie down for 15 minutes. If the bleeding remains severe at any point, please call 911. Continue taking her medications including your Plavix as prescribed. return to clinic in 2 days for pack removal. stop plavix x 2 days - you can call your PCP to see if you need to restart this at all. Doxycycline to prevent infection Activity Level: Activity as Tolerated Discharge Diet: Regular Follow Up Appointments: Loren Beyer MD [Primary Care Provider] - Demar Aguilar MD [Staff Physician] - (Tuesday07/23/24 please) Forms: [employer] Info Instructions
--- NOTE | 2024-07-20 14:44 | PC.SOCIAL ---
Discharge planning: Met with pt, and foster son, Nemesio Brenner, at Nemesio' request regarding d/c plan. Pt and live in the [facility] apartments on the [facility]. Nemesio lives in the [facility] and they have been looking at the possibility of moving pt and into an assisted living facility near him. Answered all of their questions about the Waiver/Medical assistance application process and assisted living facility admission process. Provided them with resources list including the [facility], Health Care Liaison care and Assisted living facility options. Recommended they start by contacting the [facility] Line for a Fci Care Assessment as Nemesio mentioned they do not have the funds to pay for assisted living and will need to apply for [facility] assistance. Per , they have already been contacted by the [facility] and he has a contact of a social worker delinquency prevention, who he thinks has offered to do this assessment. Nemesio will assist them in following up in this assessment and looking for assisted living. Pt's shared that he is interested in getting home care started for himself. As he is not a patient, recommended he discuss this with his primary care physician who would be able to order and arrange this if needed. As the process to move from independent living to assisted living can often take time, discussed the option to hire rn homecare care to increase services at home if needed. Pt and family were appreciative of the information provided and have contact information for hospital social workers if they have additional questions after discharge. At pt's request, Nemesio provided copies of pt and 's POA for healthcare and financial POA to be included in their medical records. When Nemesio was not present, pt and shared the story of how Nemesio became part of their family and how appreciative they are with how he is assisting and caring for them. And they shared that he is their POA for finances and healthcare. No further social work needs identified.
--- NOTE | 2024-07-20 18:17 | PC.NURSE ---
Nursing Care Hours: [id number] Pt this shift alert and oriented. Anxious but cooperative. Tearful about finding out was in the ER early this morning and pt feeling overwhelmed by her own medical condition with the bloody nose and her increasing needs. Dr Maribell Sanchez removed the L nare tampon and reapplied gauze to upper lip. Small amount of discharge noted on gauze. About 30min later the gauze fell out. small amount of thick mucus bloody discharge noted. New gauze applied. After about an hour, small amount of blood noted to top of gauze. Another three hours went by and no increase in drainage. Lead Javascript Engineer removed gauze and washed pt nose and upper lip. No active bleeding noted and pt able to breathe out of L nare. Updated hospitalist. Lead Javascript Engineer also went on walks x2 with pt in [place] with light assist for support. Gait steady. VSS. Discharge instructions went over with pt and family. Pt states that son who is POA will help pt and her spouse find assisted living closer to [place] the cities as she recognizes that their ability to live independently is increasingly less safe. Forms signed. IV removed. Pt wheeled out to family vehicle in stable condition.
== END 2024-07-20 15:12 | disposition home or self-care (01) ==
LOC: ED 14:38 → MEDSURG 15:23
PROVIDERS: Physician Assistant; Student in an Organized Health Care Education/Training Program; Admitting Provider Family Medicine; Emergency Provider Family Medicine; PCP Family Medicine; Visit Provider Family Medicine
DX: R04.0 Epistaxis (principal); I25.10 Atherosclerotic heart disease of native coronary artery without angina pectoris; I25.5 Ischemic cardiomyopathy; I10 Essential (primary) hypertension; F41.8 Other specified anxiety disorders; Z88.8 Allergy status to other drugs, medicaments and biological substances; Z91.09 Other allergy status, other than to drugs and biological substances; E11.9 Type 2 diabetes mellitus without complications; L50.1 Idiopathic urticaria; K21.9 Gastro-esophageal reflux disease without esophagitis; E03.9 Hypothyroidism, unspecified; E22.2 Syndrome of inappropriate secretion of antidiuretic hormone
CPT/HCPCS: 36415; 80048; 80076; 83036; 83735; 85018; 85025; 85027; 85610; 85730; 96361; 96374; 99283; A9270; G0378; J2470; J7030; J7512

== ENCOUNTER 2024-09-03 10:31 | Outpatient (CLI) | payer MEDICARE, OTHER, SELFPAY | END 2024-09-03 10:32 | disposition home or self-care (01) | PROVIDERS: PCP Family Medicine; Visit Provider Family Medicine | DX: S19.9XXA Unspecified injury of neck, initial encounter (principal); R55 Syncope and collapse; W18.11XA Fall from or off toilet without subsequent striking against object, initial encounter; Y92.002 Bathroom of unspecified non-institutional (private) residence as the place of occurrence of the external cause | CPT/HCPCS: A0425; A0427 ==

== ENCOUNTER 2024-09-03 11:12 | Emergency (ER) | payer MEDICARE, OTHER, MEDICAID, SELFPAY ==
[2024-09-03] VITALS (23 sets, daily range): BP systolic 167–201; BP diastolic 70–90; PULSE 65–74; RESP 16–22; TEMP 37.7; O2SAT 90–99; BMI 23.5
--- OUTSIDE RECORDS SUMMARY | 2024-09-03 11:14 | XMS_ITS | Encounter Summary ---
Author Organization [place] Address [address] [facility] 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 Gender Identity Not on file Sexual Orientation [...] dited Result - Final Performing Organization Address [facility] de Phone Number GENAROEZE PFT [...] dited Result - Final Performing Organization Address [facility] Co de Phone Number JARRODE PFT NON-INTERFACED [...] dited Result - Final Performing Organization Address City/[facility]/ZIP Co de Phone Number BREEZE PFT NON-INTERFACED [...] on filedocumented in this encounter Care Teams Barrel Lathe Operator Relationship Specialty Start Date End Date Loren Beyer MD [facility] [address] [place] [address] PCP - General Family Practice 11/15/17 Teresa Chiu, RN Registered Nurse Cardiology 07/15/23 01/17/24 Meenu Denis DO [address] [place] [address] Assigned Heart and Vascular Provider 07/29/23 documented as of this encounter
--- OUTSIDE RECORDS SUMMARY | 2024-09-03 11:14 | XMS_ITS | Encounter Summary ---
Author Organization [place] Address [address] [facility] 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 us Loren Beyer MD LAB - BLOOD ORDERABLES E dited Result - Final CITLALY PFT NON-INTERFACED (ONBASE SCANS) documented in this encounter Visit Diagnoses Not on filedocumented in this encounter Care Teams Design Engineer Agricultural Equipment Relationship Specialty Start Date End Date Loren Beyer MD [facility] [address] [place] [address] PCP - General Family Practice 11/15/17 Teresa Chiu, RN Registered Nurse Cardiology 07/15/23 01/17/24 Meenu Denis DO [address] [place] [address] Assigned Heart and Vascular Provider 07/29/23 documented as of this encounter
--- OUTSIDE RECORDS SUMMARY | 2024-09-03 11:14 | XMS_ITS | Clinical Summary ---
Author Organization [facility] Address [address] [place] [address] Care Team Providers Care Computational Biologist Name Role Phone Loren Beyer MD Primary [...] 01/30/2018 Atorvastatin Lisinopril 01/05/2008 Periorbital rash Calcitonin ([place]) Nsaids (Non-Steroidal Anti-Inflammatory Drug) Aspirin Contraindication (for [...] Possible asthma irritation Sulfa (Sulfonamide Antibiotics) Medications calcium carbonate-cholecalc iferol, 600mg-200 units, (CALCIUM 600 WITH VITAMIN D3) 600 mg(1,500mg) -200 unit tablet Take 1 tablet. by mouth once daily with lunch. 0 0 Active Lactase 3,000 unit ChewIndications:lac tose intolerance Chew by mouth each time if needed. 0 0 Active LORazepam (ATIVAN) 0.5 mg tab Take 1 tablet. by mouth each time if needed for Anxiety. 7 Active FLOVENT HFA 110 mcg/actuation inhaler Take 2 Puffs by mouth 2 times daily. 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 Active clopidogreL (PLAVIX) 75 mg tabletIndications:S /P drug eluting coronary stent placement Take 1 Tablet (75 mg) by mouth once daily. *Cardiac stents 01/04/2023* 90 Tablet 3 01/05/2023 2:19 PM CDT 3 Active ezetimibe (ZETIA) 10 mg tabletIndications:H yperlipidemia LDL goal <70 Take 1 Tablet (10 mg) by mouth once daily. 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 25 Tablet 3 01/05/2023 2:19 PM CDT 3 Active rosuvastatin (CRESTOR) 5 mg tabletIndications:H yperlipidemia LDL goal <70 Take half of a tablet (2.5 mg) by mouth at bedtime. 90 Tablet 3 01/05/2023 2:19 PM CDT 3 Active metoprolol succinate (Toprol XL) 25 mg Sustained-Release tabletIndications:I schemic cardiomyopathy Take 1 Tablet (25 mg) by mouth once daily. 90 Tablet 3 01/05/2023 2:19 PM CDT 3 Active losartan (COZAAR) 25 mg tabletIndications:I schemic cardiomyopathy Take 1 Tablet (25 mg) by mouth once daily. *Decreased dose 01/04/2023* 0 3 Active Active Problems Problem Noted Date Diagnosed Date ST elevation myocardial infa rction involving left anterior descending (LAD) coronary artery 01/04/2023 Overview (01/04/2023): STEMI s/p ARI x2 to proximal and mid LAD (01/04/2023) w/ staged PCI later on 01/04/2023 d/t [facility] Coronary artery disease invo lving [place] coronary artery of [place] heart with unstable angina pectoris 01/04/2023 Overview (01/04/2023): STEMI s/p ARI x2 to proximal and mid LAD (01/04/2023) w/ staged PCI later on 01/04/2023 d/t [facility] S/P drug eluting coronary stent placement 2022 Overview (01/04/2023): STEMI s/p ARI x2 to proximal and mid LAD (01/04/2023) w/ staged PCI later on 01/04/2023 d/t [facility] Hyperlipidemia LDL goal <70 01/04/2023 Statin intolerance [...] Depressive disorder, not elsewhere classified 08/26/2009 Immunizations Immunization Administration Dates Next Due AMB Influenza, IIV3 [...] and Fami ly Not on file 01/04/2023 Comments No Sex and Gender Information Value Date Recorded Sex Assigned at Not on file 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 Gender Identity Not on file Sexual Orientation [...] 76 01/06/2023 10:37 AM CDT Temperature 36.4 C (97.6 F) 01/06/2023 7:27 AM CDT Respiratory Rate 16 01/06/2023 10:37 AM CDT [...] of 2) 1986 Pneumococcal series for age 50+ (2 of 2 - PCV) 02/09/2008 02/08/2007 RSV vaccine for adults or (1 - 1-dose 75+ series) 10/10/2011 BMI (ht and wt on same day) for age 18+ 01/30/2019 01/30/2018, 08/26/2016 COVID-19 vaccine series (1 - 2023- season) 2024 Influenza Vaccine (Season Ended) 2025 02/06/2009, 03/08/2008, 03/21/2007, Additional history exists DEXA/DXA scan for age 65+ Completed 2014, 11/28/2009, 11/16/2007 Procedures Procedure Name Priority Date/Time Associated Diagnosis Comments SCAN-BONE DENSITOMETRY DEXA 02/20/2015 12:00 AM CDT from Last 3 Months or Most Recently Relevant to Health Maintenance Results * SCAN-BONE DENSITOMETRY DEXA (02/20/2015 12:00 AM CDT) Anatomical Region Laterality Modality Other us Scanner OTHER Final Result from Last 3 Months or Most Recently Relevant to Health Maintenance Insurance [employer] MR PB ONLY [employer] HB MEDICARE PART B HB ONLY MEDICARE PART A HB ONLY Advance Directives * Full Code (Latest Code Status on File) Date Activated Date Inactivated Comments 01/05/2023 9:39 AM 01/06/2023 5:35 PM Question Answer Comments Code Status Discussion: Reviewed Preferences * Full Code Date Activated Date Inactivated Comments 01/04/2023 5:03 AM 01/05/2023 9:39 AM Question Answer Comments Code Status Discussion: Unable to Assess Preferences, Provider to review later Care Teams Computational Biologist Relationship Specialty Start Date End Date Loren Beyer MD [address] [place] [address] PCP - General Family Practice 10/20/16
--- OUTSIDE RECORDS SUMMARY | 2024-09-03 11:14 | XMS_ITS | Encounter Summary ---
Author Organization [facility] Address [address] 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 Gender Identity Not on file Sexual Orientation Not on file documented as of this encounter Plan of Treatment Not on file documented as of this encounter Visit Diagnoses Not on filedocumented in this encounter Care Teams Agricultural Service Technician Relationship Specialty Start Date End Date Loren Beyer MD [facility] & [address] [address] PCP - General Family Practice 11/15/17 Teresa Chiu, RN Registered Nurse Cardiology 07/15/23 01/17/24 Meenu Denis DO [address] [place], [place] [address] Assigned Heart and Vascular Provider 07/29/23 documented as of this encounter
--- OUTSIDE RECORDS SUMMARY | 2024-09-03 11:14 | XMS_ITS | Clinical Summary ---
Author Organization [facility] Address [address] [facility] , [address] [place] [address] Phone Care Team Providers Care Grain Roaster Name Role Phone [facility] Unavailable Unava ilable Conditions or Problems Problem Name Problem Code Onset Date Status Entry Date Provider Comment Standard Description Annotate Hand weakness, right 813894232 (SNOMED CT) Active Simon Esquivel MD Weakness of hand Tingling, hand [id number] (SNOMED CT) Active Simon Esquivel MD Tingling [...] Procedures Code Procedure Name Date Entry Date CPT-21717 Nerve Conduction 5-6 studies CPT-30356 EMG with NCS (5+ muscles) - 1 limb 05/18 Vital Signs No information available. Immunizations No information available. Advance Directives No information available.
--- OUTSIDE RECORDS SUMMARY | 2024-09-03 11:14 | XMS_ITS | Encounter Summary ---
Author Organization [place] Address [address] [facility] [place] [address] Care Team Providers Care Medicaid Specialist Name Role Phone Loren Beyer MD Primary Care Provider + Brian Abreu MD Unavailable Sakina Osborne APRN [facility]TER Unavailable [phone] Teresa Chiu RN Unavailable Unavaila Meenu Alves DO Unavailable [phone] Encounter Details Date Type Department Care Team (Late st Contact Info) Description 01/24/2023 External Order Results [facility] [address] [place] [address] Outside, Provider Social History Tobacco Use Types Packs/Day Years Used Date Smoking Tobacco: Never Smokeless Tobacco: Never Alcohol Use Standard Drinks/Week Comments No 0 (1 standard drink = 0.6 oz pur e alcohol) Comments No Sex and Gender Information Value Date Recorded Sex Assigned at Not on file 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 Gender Identity Not on file Sexual Orientation [...] Outside LAB - BLOOD ORDERABLES Edited R Stopango - Stockpile Performing Organization Address City/[facility]/ZIP Co de Phone Number GENAROEZE PFT [...] Outside LAB - BLOOD ORDERABLES Edited R [facility]ango - Final GEN[facility]OEZE PFT NON-INTERFACED (ONBASE SCANS) [...] on filedocumented in this encounter Care Teams Medicaid Specialist Relationship Specialty Start Date End Date Loren Beyer MD [facility] & [address] [address] PCP - General Family Practice 11/15/17 Brian Abreu MD [address] [place] [address] [place] [id number] Assigned Heart and Vascular Provider 02/26/23 05/06/23 Sakina Osborne APRN [facility]TER [address] [place] [address] Assigned Heart and Vascular Provider 05/07/23 07/28/23 Teresa Chiu, RN Registered Nurse Cardiology 07/15/23 01/17/24 Meenu Denis DO [address] [place] [id number] Assigned Heart and Vascular Provider 07/29/23 documented as of this encounter
--- OUTSIDE RECORDS SUMMARY | 2024-09-03 11:15 | XMS_ITS | Encounter Summary ---
Author Organization [facility] Address [address] [facility] 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
--- OUTSIDE RECORDS SUMMARY | 2024-09-03 11:15 | XMS_ITS | Clinical Summary ---
Author Organization [facility] Address [facility] [place] [address] Care Team Providers Care Asphalt Roller Person Name Role Phone Loren Beyer MD Primary Care Provider + Meenu Denis DO Unavailable [phone] Allergies Active Allergy Reactions Criticality Noted Date [...] sodium chloride (OCEAN) 0.65 % nasal spray [place] 1 spray in nostril daily as needed [...] 50 MG tabletIndication s:Coronary artery disease involving [place] coronary artery of [place] heart without angina pectoris,Benign essential hypertension,Mariana st [...] Department Care Team Description 07/14/2024 Telephone [facility] [address] [place] [address] Nichelle Cazares, ux developer designer Refill (Needed her inhaler) 06/07/2024 MyC Medical Advice [facility] [address] [place] [address] Javier Hanson from Last 3 [...] in an abandoned building, in an overnight nursing home, or couch-surfing.) Yes 01/12/2024 Are you worried [...] on file 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 Right: Shoulder 11/12/2022 [id number] / / [id number] Humeral Bearing Standard 44-36mm Implanted:Qty: 1 on 01/30/2013 by Jc Farr MD at [facility] Right: Shoulder 10/12/2017 [id number] / / [id number] Implanted:Qty: 1 on 01/30/2013 by Jc Farr MD at [facility] Right: Shoulder 10/12/2022 [id number] / / [id number] 3.5 Hex Fixed Locking Screw [id number] Implanted:Qty: 1 on 01/30/2013 by Jc Farr MD at [facility] Right: Shoulder 12/12/2022 [id number] / / [id number] Fixed Hex Locking Screw Implanted:Qty: 1 on 01/30/2013 by Jc Farr MD at [facility] Right: Shoulder 12/12/2022 [id number] / / [id number] Hex Fixed Locking Screw Implanted:Qty: 1 on 01/30/2013 by Jc Farr MD at [facility] Right: Shoulder 12/12/2022 [id number] / / [id number] Fixed Locking Screw Implanted:Qty: 1 on 01/30/2013 by Jc Farr MD at [facility] Right: Shoulder 12/12/2022 [id number] / / [id number] Glenosphere 36mm Curve/Standard Implanted:Qty: 1 on 01/30/2013 by Jc Farr MD at [facility] Right: Shoulder 12/12/2022 [id number] / / [id number] 9x83mm Shoulder Stem Implanted:Qty: 1 on 01/30/2013 by Jc Farr MD at [facility] Right: Shoulder 10/12/2022 [id number] / / [id number] Humeral Tray 44mm Standard Implanted:Qty: 1 on 01/30/2013 by Jc Farr MD at [facility] Right: Shoulder 12/12/2022 [id number] / / [id number] Procedures Procedure Name Priority Date/Time Associated Diagnosis [...] - BLOOD ORDERABLES Final Res ult LABORATORY [facility] [address] [facility] Lab (1st floor, no room number) [place] [address], [facility] * (ABNORMAL) CBC with platelets (01/13/2024 [...] LAB - BLOOD ORDERABLES Final Res ult [facility] [address] [employer] Lab (1st floor, no room number) [address] * TSH with free T4 reflex (01/12/2024 5:26 AM CDT) Pathologist [facility] TSH 2.47 0.30 - 4.20 uIU/mL 01/12/2024 10:06 AM CDT [facility] LABORATORY Blood BLOOD SPECIMEN / Unknown Venipuncture / Unknown 01/12/2024 5:26 AM CDT 01/12/2024 5:31 AM CDT us Jenise Bailey MD LAB - BLOOD ORDERABLES Fi nal Result [facility] [address] [facility] (1st floor, no room number) [place] [id number] [place] [address] * Hepatic function panel (11/28/2023 9:30 AM [...] dited Result - Final Performing Organization Address [facility] de Phone Number GENAROEZE PFT NON-INTERFACED (ONBASE SCANS) * (ABNORMAL) Hemoglobin A1c (11/28/2023 9:30 AM CDT) Pathologist [facility] Hemoglobin A1C (External) 7.4(H) 0 - 5.6 % NON-INTERFACED (ONBASE SCANS) Blood BLOOD SPECIMEN / Unknown 11/28/2023 9:30 AM CDT Narrative [facility] PFT - 12/23/2023 11:04 AM CDT Verified by Gini Johnson on 12/23/2023. Loren Beyer MD LAB - BLOOD ORDERABLES E dited Result - Final Performing Organization Address City/[facility] de Phone Number GENAROEZE PFT NON-INTERFACED (ONBASE SCANS) * Lipid Profile (01/24/2023 8:51 AM CDT) Pathologist [facility] Triglycerides (External) 60 40 - 149 mg/dL [...] Most Recently Relevant to Health Maintenance Insurance [email or web address] MEDICARE MEDICA PRIME SOLUTION MEDICARE Advance Directives For more information, please contact: [phone] * No CPR- Do NOT Intubate (Latest Code Status on File) Date Activated Date Inactivated Comments 01/12/2024 6:51 AM 01/13/2024 5:55 PM NO basic or advanced life-sustaining interventions are performed Question Answer Comments Code status determined by: Discussion with patie nt/ legal decision maker * DNR/DNI Date Activated Date Inactivated Comments 01/30/2013 12:12 PM 02/02/2013 12:40 PM Care Teams Asphalt Roller Person Relationship Specialty Start Date End Date Loren Beyer MD [facility] [address] [place] [address] PCP - General Family Practice 11/15/17 Meenu Denis DO [address] [place] [address] Assigned Heart and Vascular Provider 07/29/23
--- NOTE | 2024-09-03 11:38 | ED_ITS ---
HPI - General Adult General Chief complaint: Fall/Minor Trauma Stated complaint: Fall Time Seen by Provider: 09/03/24 11:13 History of Present Illness HPI narrative: Pt here for eval after syncope. Pt states she felt ill this AM so just in case it wasn't acid reflux, took one Nitro. Went to [facility] and felt syncopal episode come on . Fall onto R upper eye/ forehead, lac/ dried blood on bridge of nose where glasses were. Denies blood thinners, or repeat LOC after initial syncope. Possible strike on R elbow as well, but denies elbow pain. CMS+. Endorses neck pain, EMS unable to find c-collar that fit. Main concern is nausea. Stent placed December 2022. 88-year-old woman presenting to the emergency department following a fall onto her face. Is experiencing posterior right neck pain. Concerned also because was seen here recently for a nose bleed. Did strike her nose and is having pain there. Bleeding has stopped. Today just was not feeling right in her chest thinking it was possibly acid reflux but within relatively newer diagnosis of non-STEMI and having had a stent placed she took 1 nitro after sitting down in her recliner. Reports doing quite well from a cardiac perspective. Has been feeling like her heart is waking up in saying hello. Subsequently after taking the nitro, went to the bathroom where it appears she had an apparent syncopal episode pitching forward onto her face and right upper scalp. Does struggle with chronic nausea. Does have a history of syncopal episodes and medication intolerance. Have been exploring assisted living placement. Related Data Home Medications ?Medication ?Instructions ?Recorded ?Confirmed sodium chloride 0.65 % nasal spray 1 spray intranasal BID PRN 01/28/22 09/03/24 aerosol (Saline Nasal) simethicone 125 mg capsule (Gas 125 mg PO BID@1230,1830 04/30/22 09/01/24 Relief (simethicone)) polyethylene glycol 3350 17 17 g PO DAILY PRN 01/27/23 09/01/24 gram/dose oral powder (Miralax) calcium 600 mg (as 1 cap PO DAILY 07/07/23 09/01/24 carbonate)-vitamin D3 12.5 mcg (500 unit) capsule (Calcium with Vit D3) lactase 9,000 unit chewable tablet 9,000 unit PO DAILY PRN 07/07/23 09/03/24 (Lactaid Fast Act) multivitamin (Daily Multi-Vitamin 1 tab PO DAILY@12 07/07/23 09/03/24 tablet) betamethasone, augmented 0.05 % 1 applic topical DAILY PRN 03/08/24 09/01/24 lotion ketoconazole 2 % shampoo 1 applic topical DIRECTED PRN 03/08/24 09/01/24 triamcinolone acetonide 0.1 % 1 applic topical BID-TID PRN 03/08/24 09/01/24 topical cream albuterol sulfate 90 mcg/actuation 2 puff inhalation BID@0630,1830 07/18/24 09/03/24 aerosol inhaler shortness of breath or wheezing calcium carbonate 500 mg PO BID@1230,1830 07/18/24 09/01/24 carboxymethylcellulose sodium 1 % 1 drp ophthalmic (eye) BID PRN 07/18/24 09/01/24 eye drops (Artificial Tears (carboxymethylcellulose)) chlorpheniramine maleate 4 mg 2 mg PO DAILY PRN 07/18/24 09/01/24 tablet (Allergy-Time) ciclesonide 160 mcg/actuation 2 inh inhalation BID@0630,1830 07/18/24 09/03/24 aerosol inhaler (Alvesco) ezetimibe 10 mg tablet 10 mg PO DAILY@12 07/18/24 09/03/24 losartan 50 mg tablet 50 mg PO BIDWM 07/18/24 09/01/24 omeprazole 20 mg capsule,delayed 20 mg PO DAILY@1730 GERD 07/18/24 09/03/24 release Previous Rx's ?Medication ?Instructions ?Recorded ondansetron 4 mg disintegrating 4 mg PO BID-TID PRN nausea and 09/30/23 tablet vomiting #30 tabs levothyroxine 25 mcg tablet 25 mcg PO DAILY #90 tabs 03/08/24 prednisone 5 mg tablet 5 mg PO QAM #90 tabs 03/08/24 sertraline 50 mg tablet 50 mg PO QPM #90 tabs 03/08/24 lorazepam 0.5 mg tablet 0.25 mg (1/2 x 0.5 mg) PO BID PRN 06/10/24 anxiety #30 tabs clonidine HCl 0.1 mg tablet 0.1 mg PO BIDWM hypertension #180 07/31/24 tabs nitroglycerin 0.4 mg sublingual 0.4 mg sublingual Q5-15M PRN chest 08/14/24 tablet pain #25 tabs Allergies Allergy/AdvReac Type Severity Reaction Status Date / Time codeine Allergy Severe Hallucinati Verified 09/03/24 11:42 ng hydrocodone Allergy Severe confusion/h Verified 09/03/24 11:42 allucinatin g oxycodone Allergy Severe Confusion Verified 09/03/24 11:42 penicillin V Allergy Severe Anaphylaxis Verified 09/03/24 11:42 rosuvastatin Allergy Severe Swelling Verified 09/03/24 11:42 of Lip/Tongue/Throat amlodipine Allergy Intermediate Flushing Verified 09/03/24 11:42 bisacodyl (From Dulcolax Allergy Intermediate rash/scalp, Verified 09/03/24 11:42 (bisacodyl)) redness to eyelid hydromorphone Allergy Intermediate mental Verified 09/03/24 11:42 changes lisinopril Allergy Intermediate itchy Verified 09/03/24 11:42 metformin Allergy Intermediate nausea, Verified 09/03/24 11:42 diarrhea aspirin Allergy Mild Rash Verified 09/03/24 11:42 atorvastatin Allergy Mild Rash Verified 09/03/24 11:42 calcitonin Allergy Mild Rash Verified 09/03/24 11:42 loratadine Allergy Mild Rash Verified 09/03/24 11:42 alendronate sodium Allergy Unknown Verified 09/03/24 11:42 lidocaine Allergy Unknown Verified 09/03/24 11:42 NSAIDS (Non-Steroidal Allergy Unknown Verified 09/03/24 11:42 Anti-Inflamma petrolatum,white (From Allergy Unknown Verified 09/03/24 11:42 Petroleum Jelly) lorazepam Allergy severe Verified 09/03/24 11:42 hallucinations montelukast Allergy Hallucinati Verified 09/03/24 11:42 ng peas Allergy Anaphylaxis Verified 09/03/24 11:42 Sulfa (Sulfonamide Allergy Anaphylaxis Verified 09/03/24 11:42 Antibiotics) azithromycin AdvReac Intermediate Nausea Verified 09/03/24 11:42 mometasone furoate (From AdvReac Headache Verified 09/03/24 11:42 Asmanex Twisthaler) Review of Systems Status of ROS: Reports: 6 or more systems reviewed and unremarkable except as noted in History and below PFSH PFS Medical History Depression with anxiety ?F41.8 - Other specified anxiety disorders (ICD-10) History of epistaxis ?Z87.898 - Personal history of other specified conditions (ICD-10) Cubital tunnel syndrome on right ?G56.21 - Lesion of ulnar nerve, right upper limb (ICD-10) Osteoarthritis of carpometacarpal (CMC) joint of left thumb ?M18.12 - Unilateral primary osteoarthritis of first carpometacarpal joint, left hand (ICD-10) Greater trochanteric bursitis of both hips ?M70.61 - Trochanteric bursitis, right hip (ICD-10) ?M70.62 - Trochanteric bursitis, left hip (ICD-10) ST elevation (STEMI) myocardial infarction (01/04/23) ?I21.3 - ST elevation (STEMI) myocardial infarction of unspecified site (ICD- 10) Fracture of right ulnar styloid ?S52.611A - Displaced fracture of right ulna styloid process, initial encounter for closed fracture (ICD-10) Personal history of gallstones ?Z87.19 - Personal history of other diseases of the digestive system (ICD-10) Iron deficiency anemia ?D50.9 - Iron deficiency anemia, unspecified (ICD-10) Functional dyspepsia ?K30 - Functional dyspepsia (ICD-10) Diverticulitis large intestine w/o perforation or abscess w/o bleeding ?K57.32 - Diverticulitis of large intestine without perforation or abscess without bleeding (ICD-10) Chronic nausea ?R11.0 - Nausea (ICD-10) Thyroid nodule ?E04.1 - Nontoxic single thyroid nodule (ICD-10) Chronic vertigo ?R42 - Dizziness and giddiness (ICD-10) Benign gastric polyp ?K31.7 - Polyp of stomach and duodenum (ICD-10) Diabetes mellitus ?E11.9 - Type 2 diabetes mellitus without complications (ICD-10) Epistaxis ?R04.0 - Epistaxis (ICD-10) Temporal headache ?R51.9 - Headache, unspecified (ICD-10) Throat clearing ?R09.89 - Other specified symptoms and signs involving the circulatory and respiratory systems (ICD-10) Tetanus vaccine side effect ?T50.A95A - Adverse effect of other bacterial vaccines, initial encounter (ICD-10) Statin intolerance ?Z78.9 - Other specified health status (ICD-10) Perforated nasal septum ?J34.89 - Other specified disorders of nose and nasal sinuses (ICD-10) History of chronic eczema ?Z87.2 - Personal history of diseases of the skin and subcutaneous tissue (ICD-10) Environmental allergies ?Z91.09 - Other allergy status, other than to drugs and biological substances (ICD-10) Aspirin allergy ?Z88.8 - Allergy status to other drugs, medicaments and biological substances (ICD-10) Hyponatremia ?E87.1 - Hypo-osmolality and hyponatremia (ICD-10) Health care directive on file ?Z78.9 - Other specified health status (ICD-10) Surgical History History of carpal tunnel surgery of right wrist (05/19/23) ?Z98.890 - Other specified postprocedural states (ICD-10) H/O wisdom tooth extraction ?K08.409 - Partial loss of teeth, unspecified cause, unspecified class (ICD- 10) History of heart artery stent (01/04/23) ?Z95.5 - Presence of coronary angioplasty implant and graft (ICD-10) History of esophageal dilatation (2018) ?Z98.890 - Other specified postprocedural states (ICD-10) History of tonsillectomy and adenoidectomy ?Z90.89 - Acquired absence of other organs (ICD-10) History of dilation and curettage ?Z98.890 - Other specified postprocedural states (ICD-10) 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 Social History Narrative: - 2 adult daughters, little/no contact, closest to foster son KAMRON, independent living [facility], [place] apartment Lifetime non-smoker does not drink alcohol Physical activity: housework, laundry cooking, stretch she has 15 minutes 3 times a week What is your current living situation?: I presently have a place to live Problems where you live: no known problems Problems where you live details: no known problems In the past 12 months, utilities in danger of being shut off: no In past 12 months, lack of transportation kept you from medical appts, meetings, work, or getting things needed for daily living: no In the past 12 mos, have been you worried that your food would run out before you had money to buy more?: never true In the past 12 mos, the food you bought just didn't last and you didn't have money to buy more?: never true Highest level of school completed/degree received: Bachelor's degree Smoking Status: Never smoker Do you use any of these nicotine containing products: None How often do you have a drink containing alcohol: never How often do you have six or more drinks on one occasion: Never AUDIT-C Alcohol total score: 0 Non-prescribed substance use: denies use Caffeine: No How often does anyone, including family, friends and others, physically hurt you : never How often does anyone, including family, friends and others, insult or talk down to you: never How often does anyone, including family, friends and others, threaten you with harm: never How often does anyone, including family, friends and others, scream or curse at you: never service: No Exam Narrative: Exam Narrative: Pleasant. Mildly anxious, little upset. Skin is warm and dry. She has broad bruising and some swelling over the bridge of the nose. Scrape as well on the right side of the upper bridge that appears to no longer be bleeding. Dried blood at both nares. No septal hematoma appreciated. There is bruising and mild swelling, hematoma, over the anterior right scalp crossing the hairline. No bleeding here. Quite tender to palpation at the right neck toward the midline. Back nontender. No deformity. No abrasions on her wrists or hands or pain here. No pain or injury to the legs. Heart in regular rate and rhythm. Listening to lungs later there was a trace end-expiratory harshness that seemed to resolve in the right mid lung field. Moving all extremities without difficulty. Abdomen is soft and nontender. GCS of 15. Cranial nerves 2-12 intact. Pupils are 3 mm and equal and briskly reactive. Dentition intact. Const: Vital Signs, click to edit/add: Vital Signs - 24 hr 09/03/24 11:17 09/03/24 11:19 09/03/24 11:20 Temperature 99.8 F H Pulse Rate 66 65 Pulse Rate [Pulse Oximeter] 68 Respiratory Rate 16 22 Blood Pressure 169/73 H Blood Pressure [Ri ght Upper Arm] 169/73 H Pulse Oximetry 96 96 97 Oxygen Delivery Me thod Room Air Room Air 09/03/24 11:21 09/03/24 11:30 09/03/24 11:31 Temperature Pulse Rate 67 67 65 Pulse Rate [Pulse Oximeter] Respiratory Rate Blood Pressure 167/83 H 170/76 H Blood Pressure [Ri ght Upper Arm] Pulse Oximetry 95 96 96 Oxygen Delivery Me thod 09/03/24 11:42 09/03/24 11:45 09/03/24 11:52 Temperature Pulse Rate 69 68 69 Pulse Rate [Pulse Oximeter] Respiratory Rate Blood Pressure 167/70 H 186/75 H Blood Pressure [Ri ght Upper Arm] Pulse Oximetry 97 99 97 Oxygen Delivery Me thod 09/03/24 12:00 09/03/24 12:01 09/03/24 12:12 Temperature Pulse Rate 73 69 74 Pulse Rate [Pulse Oximeter] Respiratory Rate 22 Blood Pressure 201/73 H 192/80 H Blood Pressure [Ri ght Upper Arm] Pulse Oximetry 95 96 90 Oxygen Delivery Me thod Room Air 09/03/24 12:25 09/03/24 12:26 09/03/24 12:30 Temperature Pulse Rate 71 71 73 Pulse Rate [Pulse Oximeter] Respiratory Rate Blood Pressure Blood Pressure [Ri ght Upper Arm] Pulse Oximetry 97 97 97 Oxygen Delivery Me thod 09/03/24 12:32 09/03/24 12:42 09/03/24 12:45 Temperature Pulse Rate 73 74 71 Pulse Rate [Pulse Oximeter] Respiratory Rate Blood Pressure 186/80 H 187/79 H Blood Pressure [Ri ght Upper Arm] Pulse Oximetry 97 95 95 Oxygen Delivery Me thod 09/03/24 12:52 09/03/24 13:00 09/03/24 13:02 Temperature Pulse Rate 71 73 71 Pulse Rate [Pulse Oximeter] Respiratory Rate 20 Blood Pressure 181/79 H 185/90 H Blood Pressure [Ri ght Upper Arm] Pulse Oximetry 97 95 96 Oxygen Delivery Me thod Room Air 09/03/24 13:16 09/03/24 13:30 Temperature Pulse Rate 71 71 Pulse Rate [Pulse Oximeter] Respiratory Rate Blood Pressure Blood Pressure [Ri ght Upper Arm] Pulse Oximetry 93 93 Oxygen Delivery Il thod Documenting provider has reviewed patient's vital signs: yes Course Vital Signs Vital signs: Initial Vital Signs Temperature 99.8 F H 09/03/24 11:17 Temperature Source Temporal Artery Scan 09/03/24 11:17 Pulse Rate 68 09/03/24 11:17 Pulse Rhythm Regular 09/03/24 11:17 Respiratory Rate 16 09/03/24 11:17 Blood Pressure 169/73 H 09/03/24 11:17 Blood Pressure Mean 105 09/03/24 11:17 Blood Pressure Position Supine 09/03/24 11:17 Pulse Oximetry 96 09/03/24 11:17 Oxygen Delivery Method Room Air 09/03/24 11:17 Vital Signs Temperature 99.8 F H 09/03/24 11:17 Pulse Rate 68 09/03/24 11:17 Respiratory Rate 16 09/03/24 11:17 Blood Pressure 169/73 H 09/03/24 11:17 Pulse Oximetry 96 09/03/24 11:17 Oxygen Delivery Method Room Air 09/03/24 11:17 Temperature 99.8 F H 09/03/24 11:17 Pulse Rate 71 09/03/24 13:30 Respiratory Rate 20 09/03/24 13:02 Blood Pressure 185/90 H 09/03/24 13:02 Pulse Oximetry 93 09/03/24 13:30 Oxygen Delivery Method Room Air 09/03/24 13:02 Medical Decision Making MDM Narrative Medical decision making narrative: Will need head and neck imaging especially considering anticoagulation status. Will also image face considering nasal injury. I suspect that propensity toward syncopal events along with nitro in the setting of recent COVID diagnosis and related fatigue as she explains it, is most likely explanation for this event; in effect vasovagal CT head and neck and face independently reviewed by me does not appear to show any acute abnormality. INDICATION: Fall. Facial lacerations. Neck pain. TECHNIQUE: CT of the cervical spine without contrast. Coronal and sagittal reformats are included. COMPARISON: None. FINDINGS: Fractures and other acute findings: None. Hardware: None. Spinal alignment: Accentuated cervical lordosis. Grade 1 anterolisthesis C4-5. Trace anterolisthesis C2-3, C3-4 and C7-T1. Significant cervical spondylosis: Advanced disc degeneration C5-6. Minimal disc degeneration elsewhere. Paraspinal soft tissues and imaged lungs: Left-sided thyroid nodule/mass. Right apical lung scarring. IMPRESSION: 1. No acute fracture or traumatic malalignment of the cervical spine. Please note that all CT scans at this facility use dose modulation, iterative reconstruction, and/or weight-based dosing when appropriate to reduce radiation dose to as low as reasonably achievable. Dictated by Corey Smiley MD @ 09/03/2024 12:57:25 PM TECHNIQUE: CT of the head without contrast. Coronal and sagittal reformats are included. COMPARISON: Head CT from 05/23/2022. FINDINGS: No acute intracranial hemorrhage. No mass effect or midline shift. No hydrocephalus or extra-axial collections. White matter is within normal limits for age. No acute osseous abnormalities. Moderate mucosal thickening ethmoid air cells and maxillary sinuses. Normal soft tissues. IMPRESSION: IMPRESSION: 1. No acute intracranial abnormalities. Please note that all CT scans at this facility use dose modulation, iterative reconstruction, and/or weight-based dosing when appropriate to reduce radiation dose to as low as reasonably achievable. Dictated by Corey Smiley MD @ 09/03/2024 1:01:47 PM TECHNIQUE: CT of the face without contrast. Coronal reconstructions are included. COMPARISON: None. FINDINGS: No acute fracture of the maxillofacial bones. No significant soft tissue injury. The orbital contents are normal in appearance. There is no evidence for penetrating injury to the ocular globes. The lenses are situated in their normally expected anterior locations. No radiodense or metallic foreign body is demonstrated. Polypoid mucosal thickening maxillary sinuses. [id number] opacification of the ethmoid air cells. Large chronic defect within the anterior nasal septum. The visualized portions of the brain are normal in appearance. IMPRESSION: 1. No acute fracture of the maxillofacial bones. Please note that all CT scans at this facility use dose modulation, iterative reconstruction, and/or weight-based dosing when appropriate to reduce radiation dose to as low as reasonably achievable. Dictated by Corey Smiley MD @ 09/03/2024 1:03:38 PM No further events during time in the emergency department. Appears to have better energy. Ambulated well in the emergency department. Did not require pain medication. There was discussion about safety to return home. She maintains that she is safe, well enough. is concerned about the 2 of them living independently. They continue to work toward assisted living. Will be reaching out to treat community in friends and family as well for immediate support. Will be contacting social work with the [facility]. See patient discharge plan for further discussion I would ice the areas that hurt a couple of times daily over the next few days. Stay well-hydrated. Would consider drinks like Powerade or Gatorade (either can be reconstituted from powder) especially as you are recovering from COVID. Please do reach out to the supportive network around you to get help in the short term. Nice to see you. You can return here anytime. Medical Records Medical records reviewed: Yes I reviewed the patient's medical records Discharge Plan Discharge Clinical Impression: Closed head injury, Syncope, COVID Patient Disposition: Home w/ Parent or Adult Condition: Improved Additional Instructions: I would ice the areas that hurt a couple of times daily over the next few days. Stay well-hydrated. Would consider drinks like Powerade or Gatorade (either can be reconstituted from powder) especially as you are recovering from COVID. Please do reach out to the supportive network around you to get help in the short term. Nice to see you. You can return here anytime. Prescriptions: No Action simethicone [Gas Relief (simethicone)] 125 mg capsule 125 mg PO BID@1230,1830 Rx Instructions: AFTER LUNCH AND DINNER polyethylene glycol 3350 [Miralax] 17 gram/dose powder 17 g PO DAILY PRN calcium carbonate-vitamin D3 [Calcium 600 with Vitamin D3] 600 mg-12.5 mcg (500 unit) capsule 1 cap PO DAILY Saline Nasal 0.65 % aerosol,spray 1 spray intranasal BID PRN multivitamin [Daily Multi-Vitamin] Tablet 1 tab PO DAILY@12 Lactaid Fast Act 9,000 unit tablet,chewable 9,000 unit PO DAILY PRN Rx Instructions: administer with dairy as needed triamcinolone acetonide 0.1 % cream 1 applic topical BID-TID PRN ketoconazole 2 % shampoo 1 applic topical DIRECTED PRN betamethasone, augmented 0.05 % lotion 1 applic topical DAILY PRN sertraline 50 mg tablet 50 mg PO QPM Qty: 90 3RF prednisone 5 mg tablet 5 mg PO QAM Qty: 90 3RF levothyroxine 25 mcg tablet 25 mcg PO DAILY Qty: 90 4RF calcium carbonate 500 mg calcium (1,250 mg) tablet,chewable 500 mg PO BID@1230,1830 Rx Instructions: AFTER LUNCH AND DINNER Artificial Tears (cmc) 1 % drops 1 drp ophthalmic (eye) BID PRN losartan 50 mg tablet 50 mg PO BIDWM omeprazole 20 mg capsule,delayed release(DR/EC) 20 mg PO DAILY@1730 Rx Instructions: BEFORE EVENING MEAL albuterol sulfate 90 mcg/actuation HFA aerosol inhaler 2 puff INHALATION BID@0630,1830 ezetimibe 10 mg tablet 10 mg PO DAILY@12 Alvesco 160 mcg/actuation HFA aerosol inhaler 2 inh inhalation BID@0630,1830 chlorpheniramine maleate [Allergy-Time] 4 mg tablet 2 mg PO DAILY PRN ondansetron 4 mg tablet,disintegrating 4 mg PO BID-TID PRN (Reason: nausea and vomiting) Qty: 30 4RF lorazepam 0.5 mg tablet 0.25 mg PO BID PRN (Reason: anxiety) Qty: 30 0RF clonidine HCl 0.1 mg tablet 0.1 mg PO BIDWM Qty: 180 1RF nitroglycerin 0.4 mg tablet, sublingual 0.4 mg sublingual Q5-15M PRN (Reason: chest pain) Qty: 25 0RF Follow Up/Referrals: Loren Beyer MD [Primary Care Provider] - Stand Alone Forms: [employer] Info Instructions
--- NOTE | 2024-09-03 12:01 | CRLHL7_ITS ---
For Patients: As a result of the Century Cures Act, medical imaging exams and procedure reports are released immediately into your electronic medical record. You may view this report before your referring provider. If you have questions, please contact your health care provider. INDICATION: Fall. TECHNIQUE: CT of the head without contrast. Coronal and sagittal reformats are included. COMPARISON: Head CT from 05/23/2022. FINDINGS: No acute intracranial hemorrhage. No mass effect or midline shift. No hydrocephalus or extra-axial collections. White matter is within normal limits for age. No acute osseous abnormalities. Moderate mucosal thickening ethmoid air cells and maxillary sinuses. Normal soft tissues. IMPRESSION: IMPRESSION: 1. No acute intracranial abnormalities. Please note that all CT scans at this facility use dose modulation, iterative reconstruction, and/or weight-based dosing when appropriate to reduce radiation dose to as low as reasonably achievable. Dictated by Corey Smiley MD @ 09/03/2024 1:01:47 PM (Electronically Signed)
--- NOTE | 2024-09-03 12:01 | CRLHL7_ITS ---
For Patients: As a result of the Cures Act, medical imaging exams and procedure reports are released immediately into your electronic medical record. You may view this report before your referring provider. If you have questions, please contact your health care provider. INDICATION: Fall. Facial lacerations. Neck pain. TECHNIQUE: CT of the cervical spine without contrast. Coronal and sagittal reformats are included. COMPARISON: None. FINDINGS: Fractures and other acute findings: None. Hardware: None. Spinal alignment: Accentuated cervical lordosis. Grade 1 anterolisthesis C4-5. Trace anterolisthesis C2-3, C3-4 and C7-T1. Significant cervical spondylosis: Advanced disc degeneration C5-6. Minimal disc degeneration elsewhere. Paraspinal soft tissues and imaged lungs: Left-sided thyroid nodule/mass. Right apical lung scarring. IMPRESSION: 1. No acute fracture or traumatic malalignment of the cervical spine. Please note that all CT scans at this facility use dose modulation, iterative reconstruction, and/or weight-based dosing when appropriate to reduce radiation dose to as low as reasonably achievable. Dictated by Corey Smiley MD @ 09/03/2024 12:57:25 PM (Electronically Signed)
--- NOTE | 2024-09-03 12:02 | CRLHL7_ITS ---
For Patients: As a result of the Century Cures Act, medical imaging exams and procedure reports are released immediately into your electronic medical record. You may view this report before your referring provider. If you have questions, please contact your health care provider. INDICATION: Fall. Facial trauma. TECHNIQUE: CT of the face without contrast. Coronal reconstructions are included. COMPARISON: None. FINDINGS: No acute fracture of the maxillofacial bones. No significant soft tissue injury. The orbital contents are normal in appearance. There is no evidence for penetrating injury to the ocular globes. The lenses are situated in their normally expected anterior locations. No radiodense or metallic foreign body is demonstrated. Polypoid mucosal thickening maxillary sinuses. [id number] opacification of the ethmoid air cells. Large chronic defect within the anterior nasal septum. The visualized portions of the brain are normal in appearance. IMPRESSION: 1. No acute fracture of the maxillofacial bones. Please note that all CT scans at this facility use dose modulation, iterative reconstruction, and/or weight-based dosing when appropriate to reduce radiation dose to as low as reasonably achievable. Dictated by Corey Smiley MD @ 09/03/2024 1:03:38 PM (Electronically Signed)
--- OUTSIDE RECORDS SUMMARY | 2024-09-03 12:16 | XMS_ITS | Encounter Summary ---
Author Organization [place] Address [address] [facility] 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 Gender Identity Not on file Sexual Orientation [...] dited Result - Final Performing Organization Address [facility] de Phone Number GENAROEZE PFT NON-INTERFACED (ONBASE [...] dited Result - Final Performing Organization Address [facility] Co de Phone Number JARRODE PFT NON-INTERFACED [...] dited Result - Final Performing Organization Address City/[facility]/ZIP Co de Phone Number BREEZE PFT [...] on filedocumented in this encounter Care Teams Bagger And Stock Handler Helper Relationship Specialty Start Date End Date Loren Beyer MD [facility] [address] [place] [address] PCP - General Family Practice 11/15/17 Tereas Chiu, RN Registered Nurse Cardiology 07/15/23 01/17/24 Meenu Denis DO [address] [place] [address] Assigned Heart and Vascular Provider 07/29/23 documented as of this encounter
--- OUTSIDE RECORDS SUMMARY | 2024-09-03 12:17 | XMS_ITS | Encounter Summary ---
Author Organization [place] Address [address] [facility] 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 Gender Identity Not on file Sexual Orientation [...] - Final Performing Organization Address [facility] Co de Phone Number CITLALY [...] - Final Performing Organization Address [facility] Co de Phone Number CITLALY [...] on filedocumented in this encounter Care Teams Linoleum Tile Layer Relationship Specialty Start Date End Date Loren Beyer MD [facility] [address] [place] [address] PCP - General Family Practice 11/15/17 Teresa Chiu, RN Registered Nurse Cardiology 07/15/23 01/17/24 Meenu Denis DO [address] [place] [address] Assigned Heart and Vascular Provider 07/29/23 documented as of this encounter
--- OUTSIDE RECORDS SUMMARY | 2024-09-03 12:17 | XMS_ITS | Clinical Summary ---
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 (HC) Place [...] w/ staged PCI later on 01/04/2023 d/t [facility] Coronary 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
--- OUTSIDE RECORDS SUMMARY | 2024-09-03 12:17 | XMS_ITS | Clinical Summary ---
Author Organization [place] Address Replaced by [facility] [place] [address] Care Team Providers Care Production Line Worker Name Role Phone Loren Beyer MD Primary Care Provider + Meenu Denis DO Unavailable [phone] Allergies Active Allergy Reactions Criticality Noted Date [...] sodium chloride (OCEAN) 0.65 % nasal spray [place] 1 spray in nostril daily as needed [...] 50 MG tabletIndication s:Coronary artery disease involving venetie coronary artery of venetie heart without angina pectoris,Benign essential hypertension,Mariana st [...] Department Care Team Description 07/14/2024 Telephone [facility] [address] [place] [address] Nichelle Cazares, sales representative meats Refill (Needed her inhaler) 06/07/2024 MyC Medical Advice [facility] [address] [place] [address] Javier Hanson from Last 3 [...] on file 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 Gender Identity Not on file Sexual Orientation [...] this topic Medical Devices Implanted Type Area Patient Intake Coordinator Device Identifier Shelf Expiration Date Model / Serial / Lot Glenosphere 25mm Mini Baseplate Implanted:Qty: 1 on 01/30/2013 by Jc Farr MD at [facility] Right: Shoulder 11/12/2022 [id number] / / [id number] Humeral Bearing Standard 44-36mm Implanted:Qty: 1 on 01/30/2013 by Jc Farr MD at [facility] Right: Shoulder 10/12/2017 [id number] / / [id number] Implanted:Qty: 1 on 01/30/2013 by Jc Farr MD at [facility] Right: Shoulder 10/12/2022 [id number] / / [id number] 3.5 Hex Fixed Locking Screw [id number] Implanted:Qty: 1 on 01/30/2013 by Jc Farr MD at [facility] Right: Shoulder 12/12/2022 [id number] / / [id number] Fixed Hex Locking Screw Implanted:Qty: 1 on 01/30/2013 by Jc Farr MD at [facility] Right: Shoulder 12/12/2022 [id number] / / [id number] Hex Fixed Locking Screw Implanted:Qty: 1 on 01/30/2013 by Jc Farr MD at [facility] Right: Shoulder 12/12/2022 [id number] / / [id number] Fixed Locking Screw Implanted:Qty: 1 on 01/30/2013 by Jc Farr MD at [facility] Right: Shoulder 12/12/2022 [id number] / / [id number] Glenosphere 36mm Curve/Standard Implanted:Qty: 1 on 01/30/2013 by Jc Farr MD at [facility] Right: Shoulder 12/12/2022 [id number] / / [id number] 9x83mm Shoulder Stem Implanted:Qty: 1 on 01/30/2013 by Jc Farr MD at [facility] Right: Shoulder 10/12/2022 [id number] / / [id number] Humeral Tray 44mm Standard Implanted:Qty: 1 on 01/30/2013 by Jc Farr MD at [facility] Right: Shoulder 12/12/2022 [id number] / / [id number] Procedures Procedure Name Priority Date/Time Associated Diagnosis [...] - BLOOD ORDERABLES Final Res ult LABORATORY [facility] [address] [facility] Lab (1st floor, no room number) [place] [address], [facility] * (ABNORMAL) CBC with platelets (01/13/2024 [...] LAB - BLOOD ORDERABLES Final Res ult [facility] [address] [employer] Lab (1st floor, no room number) [address] * TSH with free T4 reflex (01/12/2024 5:26 AM CDT) Pathologist [facility] TSH 2.47 0.30 - 4.20 uIU/mL 01/12/2024 10:06 AM CDT RH LABORATORY Blood BLOOD SPECIMEN / Unknown Venipuncture / Unknown 01/12/2024 5:26 AM CDT 01/12/2024 5:31 AM CDT us Jenise Bailey MD LAB - BLOOD ORDERABLES Fi nal Result [facility] [address] [employer] Lab (1st floor, no room number) [place] [id number] [place] [address] * Hepatic function panel (11/28/2023 9:30 AM [...] dited Result - Final Performing Organization Address [facility] de Phone Number GENAROEZE PFT NON-INTERFACED (ONBASE SCANS) * (ABNORMAL) Hemoglobin A1c (11/28/2023 9:30 AM CDT) Pathologist [facility] Hemoglobin A1C (External) 7.4(H) 0 - 5.6 % NON-INTERFACED (ONBASE SCANS) Blood BLOOD SPECIMEN / Unknown 11/28/2023 9:30 AM CDT Narrative BREEZE PFT - 12/23/2023 11:04 AM CDT Verified by Gini Johnson on 12/23/2023. Loren Beyer MD LAB - BLOOD ORDERABLES E dited Result - Final Performing Organization Address City/[facility] de Phone Number GENAROEZE PFT NON-INTERFACED (ONBASE SCANS) * Lipid Profile (01/24/2023 8:51 AM CDT) Pathologist [facility] Triglycerides (External) 60 40 - 149 mg/dL [...] Most Recently Relevant to Health Maintenance Insurance [employer] MEDICARE MEDICA PRIME SOLUTION MEDICARE Advance Directives For more information, please contact: [phone] * No CPR- Do NOT Intubate (Latest Code Status on File) Date Activated Date Inactivated Comments 01/12/2024 6:51 AM 01/13/2024 5:55 PM NO basic or advanced life-sustaining interventions are performed Question Answer Comments Code status determined by: Discussion with patie nt/ legal decision maker * DNR/DNI Date Activated Date Inactivated Comments 01/30/2013 12:12 PM 02/02/2013 12:40 PM Care Teams Production Line Worker Relationship Specialty Start Date End Date Loren Beyer MD [facility] [address] [place] [address] PCP - General Family Practice 11/15/17 Meenu Denis DO [address] [place] [address] Assigned Heart and Vascular Provider 07/29/23
--- OUTSIDE RECORDS SUMMARY | 2024-09-03 12:17 | XMS_ITS | Encounter Summary ---
Author Organization [place] Address [address] [place] [address] Care Team Providers Care Gold Letterer Name Role Phone Loren Beyer MD Primary Care Provider + Brian Abreu MD Unavailable Sakina Osborne APRN BUSINESS SUPPORT COORDINATOR Unavailable [phone] Teresa Chiu RN Unavailable Unavaila Meenu Alves DO Unavailable [phone] Encounter Details Date Type Department Care Team (Late st Contact Info) Description 01/24/2023 External Order Results [facility] [address] [place] [address] Outside, Provider Social History Tobacco Use Types Packs/Day Years Used Date Smoking Tobacco: Never Smokeless Tobacco: Never Alcohol Use Standard Drinks/Week Comments No 0 (1 standard drink = 0.6 oz pur e alcohol) Comments No Sex and Gender Information Value Date Recorded Sex Assigned at Not on file 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 Gender Identity Not on file Sexual Orientation [...] Outside LAB - BLOOD ORDERABLES Edited [facility] [place] Performing Organization Address City/[facility]/ZIP Co de Phone Number GENAROEZE PFT [...] Outside LAB - BLOOD ORDERABLES Edited [facility] - Final GENAROEZE PFT NON-INTERFACED (ONBASE SCANS) [...] on filedocumented in this encounter Care Teams Gold Letterer Relationship Specialty Start Date End Date Loren Beyer MD [facility] & [address] [address] PCP - General Family Practice 11/15/17 Brian Abreu MD [address] [place] [address] [place] [id number] Assigned Heart and Vascular Provider 02/26/23 05/06/23 Sakina Osborne APRN BUSINESS SUPPORT COORDINATOR [address] [place] [address] Assigned Heart and Vascular Provider 05/07/23 07/28/23 Teresa Chiu, RN Registered Nurse Cardiology 07/15/23 01/17/24 Meenu Denis DO [address] [place] [id number] Assigned Heart and Vascular Provider 07/29/23 documented as of this encounter
--- OUTSIDE RECORDS SUMMARY | 2024-09-03 12:17 | XMS_ITS | Encounter Summary ---
Author Organization [place] Address [address] [facility] 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
--- OUTSIDE RECORDS SUMMARY | 2024-09-03 12:17 | XMS_ITS | Encounter Summary ---
Author Organization [place] Address [address] 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 & [address] [address] PCP - General Family Practice 11/15/17 Teresa Chiu, RN Registered Nurse Cardiology 07/15/23 01/17/24 Meenu Denis DO [address] [place], [place] [address] Assigned Heart and Vascular Provider 07/29/23 documented as of this encounter
--- OUTSIDE RECORDS SUMMARY | 2024-09-03 12:17 | XMS_ITS | Clinical Summary ---
Author Organization [facility] Address [address] [facility] , [address] [place] [address] Phone Care Team Providers Care Application Packager Name Role Phone [facility] Unavailable Unava ilable Conditions or Problems Problem Name Problem Code Onset Date Status Entry Date Provider Comment Standard Description Annotate Hand weakness, right 747194485 (SNOMED CT) Active Simon Esquivel MD Weakness of hand Tingling, hand 777204061 (SNOMED CT) Active Simon Esquivel MD Tingling [...] Procedures Code Procedure Name Date Entry Date CPT-52405 Nerve Conduction 5-6 studies CPT-21323 EMG with NCS (5+ muscles) - 1 limb 05/18 Vital Signs No information available. Immunizations No information available. Advance Directives No information available.
== END 2024-09-03 14:56 | disposition home or self-care (01) ==
PROVIDERS: Emergency Provider Family Medicine; PCP Family Medicine
DX: R55 Syncope and collapse (principal); S09.90XA Unspecified injury of head, initial encounter; U07.1 COVID-19
CPT/HCPCS: 70450; 70486; 72125; 99284

== ENCOUNTER 2024-09-11 08:30 | Outpatient (CLI) | payer MEDICARE, OTHER, MEDICAID, SELFPAY | END 2024-09-11 08:31 | disposition home or self-care (01) | LOC: NFLDREF 09-12 00:41 | PROVIDERS: PCP Family Medicine; Referring Provider Family Medicine; Visit Provider Family Medicine | DX: D50.9 Iron deficiency anemia, unspecified (principal); I10 Essential (primary) hypertension; E11.65 Type 2 diabetes mellitus with hyperglycemia | CPT/HCPCS: 80053; 82728 ==

== ENCOUNTER 2024-09-19 16:22 | Emergency (ER) | payer MEDICARE, OTHER, MEDICAID, SELFPAY ==
--- NOTE | 2024-09-19 16:33 | ED.GENADULT ---
HPI - General Adult General Time Seen by Provider: 16:34 Date Seen: 09/19/24 Chief complaint: Hypertension Stated complaint: blood pressure issues Time Seen by Provider: 09/19/24 16:26 Source: patient and family Mode of arrival: ambulatory Limitations: no limitations History of Present Illness HPI narrative: Ally is a 88 year old female includes SIADH, asthma, hypothyroidism, hypertension, gastroparesis, GERD, anxiety depression, diabetes mellitus type 2 presents emerged department via private car in family member with elevated blood pressure readings. Patient states she is moving into an assisted living with her up in the [facility], she states that recently she has been having abnormal blood pressure readings. When the blood pressure is more elevated she denies any headache, dizziness, chest pain or shortness of breath, patient states that she feels different. She sees a appliance installer at [facility]. Patient usually takes Tylenol for some chronic osteoarthritis pain otherwise no [id number] medications, she feels happy about going to an assisted living, she is not under a lot of stress. No recent illness. Patient's primary care provider is Dr. Beyer. Related Data Home Medications ?Medication ?Instructions ?Recorded ?Confirmed sodium chloride 0.65 % nasal spray 1 spray intranasal BID PRN 01/28/22 09/19/24 aerosol (Saline Nasal) simethicone 125 mg capsule (Gas 125 mg PO BID@1230,1830 04/30/22 09/19/24 Relief (simethicone)) polyethylene glycol 3350 17 17 g PO DAILY PRN 01/27/23 09/19/24 gram/dose oral powder (Miralax) calcium 600 mg (as 1 cap PO DAILY 07/07/23 09/19/24 carbonate)-vitamin D3 12.5 mcg (500 unit) capsule (Calcium with Vit D3) lactase 9,000 unit chewable tablet 9,000 unit PO DAILY PRN 07/07/23 09/19/24 (Lactaid Fast Act) multivitamin (Daily Multi-Vitamin 1 tab PO DAILY@12 07/07/23 09/19/24 tablet) betamethasone, augmented 0.05 % 1 applic topical DAILY PRN 03/08/24 09/19/24 lotion ketoconazole 2 % shampoo 1 applic topical DIRECTED PRN 03/08/24 09/19/24 triamcinolone acetonide 0.1 % 1 applic topical BID-TID PRN 03/08/24 09/19/24 topical cream calcium carbonate 500 mg PO BID@1230,1830 07/18/24 09/19/24 carboxymethylcellulose sodium 1 % 1 drp ophthalmic (eye) BID PRN 07/18/24 09/19/24 eye drops (Artificial Tears (carboxymethylcellulose)) chlorpheniramine maleate 4 mg 2 mg PO DAILY PRN 07/18/24 09/19/24 tablet (Allergy-Time) ciclesonide 160 mcg/actuation 2 inh inhalation BID@0630,1830 07/18/24 09/19/24 aerosol inhaler (Alvesco) ezetimibe 10 mg tablet 10 mg PO DAILY@12 07/18/24 09/19/24 losartan 50 mg tablet 50 mg PO BIDWM 07/18/24 09/19/24 omeprazole 20 mg capsule,delayed 20 mg PO DAILY@1730 GERD 07/18/24 09/19/24 release Previous Rx's ?Medication ?Instructions ?Recorded ondansetron 4 mg disintegrating 4 mg PO BID-TID PRN nausea and 09/30/23 tablet vomiting #30 tabs levothyroxine 25 mcg tablet 25 mcg PO DAILY #90 tabs 03/08/24 prednisone 5 mg tablet 5 mg PO QAM #90 tabs 03/08/24 sertraline 50 mg tablet 50 mg PO QPM #90 tabs 03/08/24 lorazepam 0.5 mg tablet 0.25 mg (1/2 x 0.5 mg) PO BID PRN 06/10/24 anxiety #30 tabs clonidine HCl 0.1 mg tablet 0.1 mg PO BIDWM hypertension #180 07/31/24 tabs nitroglycerin 0.4 mg sublingual 0.4 mg sublingual Q5-15M PRN chest 08/14/24 tablet pain #25 tabs albuterol sulfate 90 mcg/actuation 2 puff inhalation BID@0630,1830 09/04/24 aerosol inhaler shortness of breath or wheezing #8.5 grams Allergies Allergy/AdvReac Type Severity Reaction Status Date / Time codeine Allergy Severe Hallucinati Verified 09/19/24 16:30 ng hydrocodone Allergy Severe confusion/h Verified 09/19/24 16:30 allucinatin g oxycodone Allergy Severe Confusion Verified 09/19/24 16:30 penicillin V Allergy Severe Anaphylaxis Verified 09/19/24 16:30 rosuvastatin Allergy Severe Swelling Verified 09/19/24 16:30 of Lip/Tongue/Throat amlodipine Allergy Intermediate Flushing Verified 09/19/24 16:30 bisacodyl (From Dulcolax Allergy Intermediate rash/scalp, Verified 09/19/24 16:30 (bisacodyl)) redness to eyelid hydromorphone Allergy Intermediate mental Verified 09/19/24 16:30 changes lisinopril Allergy Intermediate itchy Verified 09/19/24 16:30 metformin Allergy Intermediate nausea, Verified 09/19/24 16:30 diarrhea aspirin Allergy Mild Rash Verified 09/19/24 16:30 atorvastatin Allergy Mild Rash Verified 09/19/24 16:30 calcitonin Allergy Mild Rash Verified 09/19/24 16:30 loratadine Allergy Mild Rash Verified 09/19/24 16:30 alendronate sodium Allergy Unknown Verified 09/19/24 16:30 lidocaine Allergy Unknown Verified 09/19/24 16:30 NSAIDS (Non-Steroidal Allergy Unknown Verified 09/19/24 16:30 Anti-Inflamma petrolatum,white (From Allergy Unknown Verified 09/19/24 16:30 Petroleum Jelly) lorazepam Allergy severe Verified 09/19/24 16:30 hallucinations montelukast Allergy Hallucinati Verified 09/19/24 16:30 ng peas Allergy Anaphylaxis Verified 09/19/24 16:30 Sulfa (Sulfonamide Allergy Anaphylaxis Verified 09/19/24 16:30 Antibiotics) azithromycin AdvReac Intermediate Nausea Verified 09/19/24 16:30 mometasone furoate (From AdvReac Headache Verified 09/19/24 16:30 Asmanex Twisthaler) Review of Systems Status of ROS: Reports: 10 or more systems reviewed and unremarkable except as noted in History and below PFSH PFSH Medical History Syncope ?R55 - Syncope and collapse (ICD-10) Acute anterior epistaxis ?R04.0 - Epistaxis (ICD-10) Depression with anxiety ?F41.8 - Other specified anxiety disorders (ICD-10) History of epistaxis ?Z87.898 - Personal history of other specified conditions (ICD-10) Cubital tunnel syndrome on right ?G56.21 - Lesion of ulnar nerve, right upper limb (ICD-10) Osteoarthritis of carpometacarpal (CMC) joint of left thumb ?M18.12 - Unilateral primary osteoarthritis of first carpometacarpal joint, left hand (ICD-10) Greater trochanteric bursitis of both hips ?M70.61 - Trochanteric bursitis, right hip (ICD-10) ?M70.62 - Trochanteric bursitis, left hip (ICD-10) ST elevation (STEMI) myocardial infarction (01/04/23) ?I21.3 - ST elevation (STEMI) myocardial infarction of unspecified site (ICD-10) Fracture of right ulnar styloid ?S52.611A - Displaced fracture of right ulna styloid process, initial encounter for closed fracture (ICD-10) Personal history of gallstones ?Z87.19 - Personal history of other diseases of the digestive system (ICD-10) Iron deficiency anemia ?D50.9 - Iron deficiency anemia, unspecified (ICD-10) Functional dyspepsia ?K30 - Functional dyspepsia (ICD-10) Diverticulitis large intestine w/o perforation or abscess w/o bleeding ?K57.32 - Diverticulitis of large intestine without perforation or abscess without bleeding (ICD-10) Chronic nausea ?R11.0 - Nausea (ICD-10) Thyroid nodule ?E04.1 - Nontoxic single thyroid nodule (ICD-10) Chronic vertigo ?R42 - Dizziness and giddiness (ICD-10) Benign gastric polyp ?K31.7 - Polyp of stomach and duodenum (ICD-10) Diabetes mellitus ?E11.9 - Type 2 diabetes mellitus without complications (ICD-10) Epistaxis ?R04.0 - Epistaxis (ICD-10) Temporal headache ?R51.9 - Headache, unspecified (ICD-10) Throat clearing ?R09.89 - Other specified symptoms and signs involving the circulatory and respiratory systems (ICD-10) Tetanus vaccine side effect ?T50.A95A - Adverse effect of other bacterial vaccines, initial encounter (ICD-10) Statin intolerance ?Z78.9 - Other specified health status (ICD-10) Perforated nasal septum ?J34.89 - Other specified disorders of nose and nasal sinuses (ICD-10) History of chronic eczema ?Z87.2 - Personal history of diseases of the skin and subcutaneous tissue (ICD-10) Environmental allergies ?Z91.09 - Other allergy status, other than to drugs and biological substances (ICD-10) Aspirin allergy ?Z88.8 - Allergy status to other drugs, medicaments and biological substances (ICD-10) Hyponatremia ?E87.1 - Hypo-osmolality and hyponatremia (ICD-10) Health care directive on file ?Z78.9 - Other specified health status (ICD-10) Surgical History History of carpal tunnel surgery of right wrist (05/19/23) ?Z98.890 - Other specified postprocedural states (ICD-10) H/O wisdom tooth extraction ?K08.409 - Partial loss of teeth, unspecified cause, unspecified class (ICD-10) History of heart artery stent (01/04/23) ?Z95.5 - Presence of coronary angioplasty implant and graft (ICD-10) History of esophageal dilatation (2017) ?Z98.890 - Other specified postprocedural states (ICD-10) History of tonsillectomy and adenoidectomy ?Z90.89 - Acquired absence of other organs (ICD-10) History of dilation and curettage ?Z98.890 - Other specified postprocedural states (ICD-10) 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 Social History Narrative: - 2 adult daughters, little/no contact, closest to foster son KAM[place], [facility] Lifetime non-smoker does not drink alcohol Physical activity: housework, laundry cooking, stretch she has 15 minutes 3 times a week What is your current living situation?: I presently have a place to live Problems where you live: no known problems Problems where you live details: no known problems In the past 12 months, utilities in danger of being shut off: no In past 12 months, lack of transportation kept you from medical appts, meetings, work, or getting things needed for daily living: no In the past 12 mos, have been you worried that your food would run out before you had money to buy more?: never true In the past 12 mos, the food you bought just didn't last and you didn't have money to buy more?: never true Highest level of school completed/degree received: Bachelor's degree Smoking Status: Never smoker Do you use any of these nicotine containing products: None How often do you have a drink containing alcohol: never How often do you have six or more drinks on one occasion: Never AUDIT-C Alcohol total score: 0 Non-prescribed substance use: denies use Caffeine: No How often does anyone, including family, friends and others, physically hurt you: never How often does anyone, including family, friends and others, insult or talk down to you: never How often does anyone, including family, friends and others, threaten you with harm: never How often does anyone, including family, friends and others, scream or curse at you: never service: No Exam Narrative: Exam Narrative: General: No apparent distress HEENT: Pupils equal round reactive to light, extraocular muscles intact, Oropharynx dry Neck: Supple Lungs: Clear to auscultation bilaterally Heart: Normal sinus rhythm S1-S2 Abdomen: Soft, nontender, bowel sounds present GCS: 15, alert alert awake and oriented x3 Muscle skeletal: +5 strength upper lower extremities Psych: Mood and affect normal Const: Vital Signs, click to edit/add: Vital Signs - 24 hr 09/19/24 16:35 Temperature 97.8 F Pulse Rate [Pulse Oximeter] 64 Respiratory Rate 22 Blood Pressure [Le ft Upper Arm] 209/79 H Pulse Oximetry 96 Oxygen Delivery Me thod Room Air Course Course ED Course: aidet performed. Vitals are normal at this time, workup will include EKG, troponin T, CBC, CMP, EKG, no obvious abnormalities noted on exam, , may consider alternating her losartan patient takes 25 mg a.m. and p.m., clonidine 0.1 mg a.m. and p.m.. Will try to reach out to primary care provider. Patient states they have been under lot of stress since May of this year, they are transitioning to assisted living tomorrow in the [facility]. Differential diagnosis include electrolyte imbalance, hypertensive urgency or emergency, CVA, anxiety and depression, Reevaluation(s) Time of Reevaluation #1: 17:56 Reevaluation #1: EKG showed a normal sinus rhythm, possible left atrial enlargement, left axis deviation, septal infarct age undetermined but seen on previous, no acute changes, troponin T within normal limits, CBC showed chronic anemia, no leukocytosis, comprehensive metabolic panel showed normal electrolytes and renal function, mildly elevated LFTs, her blood pressure improved with no intervention during his stay in emergency department, will plan to discharge, she has proper follow-up arranged, reasons to return were given. Vital Signs Vital signs: Initial Vital Signs Temperature 97.8 F 09/19/24 16:35 Temperature Source Temporal Artery Scan 09/19/24 16:35 Pulse Rate 64 09/19/24 16:35 Respiratory Rate 22 09/19/24 16:35 Blood Pressure 209/79 H 09/19/24 16:35 Blood Pressure Mean 122 H 09/19/24 16:35 Pulse Oximetry 96 09/19/24 16:35 Oxygen Delivery Method Room Air 09/19/24 16:35 Vital Signs Temperature 97.8 F 09/19/24 16:35 Pulse Rate 64 09/19/24 16:35 Respiratory Rate 22 09/19/24 16:35 Blood Pressure 209/79 H 09/19/24 16:35 Pulse Oximetry 96 09/19/24 16:35 Oxygen Delivery Method Room Air 09/19/24 16:35 Temperature 97.8 F 09/19/24 16:35 Pulse Rate 64 09/19/24 16:35 Respiratory Rate 22 09/19/24 16:35 Blood Pressure 209/79 H 09/19/24 16:35 Pulse Oximetry 96 09/19/24 16:35 Oxygen Delivery Method Room Air 09/19/24 16:35 Medical Decision Making Lab Data Labs: Lab Results 09/19/24 09/19/24 Range/Units 16:54 17:00 WBC 8.28 (4.50-11.00) K/uL RBC 4.38 (4.00-5.20) m/uL Hgb 10.4 L (12.0-16.0) gm/dL Hct 33.9 (33.0-51.0) % MCV 77 L (80-100) fL MCH 24 L (26-34) pg MCHC 31 L (32-36) gm/dL RDW Coeff of Eric 15.9 H (11.5-15.5) % Plt Count 236 (140-440) K/uL Neut % (Auto) 77.0 H (42.0-72.0) % Lymph % (Auto) 12.0 L (20-44) % [place] % (Auto) 7.9 (0.0-11.0) % Eos % (Auto) 2.1 (0.0-7.0) % Baso % (Auto) 0.8 (0.0-3.0) % Neut # (Auto) 6.40 (1.7-7.0) K/uL Lymph # (Auto) 1.00 (0.90-2.90) K/uL [place] # (Auto) 0.70 (0.00-0.90) K/UL Eos # (Auto) 0.17 (0.00-0.50) K/uL Baso # (Auto) 0.07 (0.00-0.30) K/uL Abs Immat Gran (auto) 0.02 (0.00-0.30) K/uL Imm/Tot Granulo (auto) 0.2 % Sodium 135 (135-149) mmol/L Potassium 3.8 (3.6-5.1) mmol/L Chloride 100 (96-114) mmol/L Carbon Dioxide 29 (20-32) mmol/L Anion Gap 6 L (7-15) mEq/L BUN 23 (7-30) mg/dL Creatinine 0.8 (0.5-1.5) mg/dL Estimated Creat Clear 32.64 Estimated GFR 71 ml/min Glucose 203 H (60-115) mg/dL Calcium 9.2 (8.4-10.6) mg/dL Total Bilirubin 0.4 (0.1-1.5) mg/dL AST 40 H (12-35) U/L ALT 38 H (4-35) U/L Alkaline Phosphatase 53 (40-150) U/L Total Protein 7.0 (6.0-8.3) g/dL Albumin 3.9 (3.3-5.0) g/dL POC Troponin I 0.01 (0.01-0.04) ng/ml Discharge Plan Discharge Clinical Impression: Elevated blood pressure reading Patient Disposition: Home, Self-Care Condition: Improved Additional Instructions: To follow-up with Dr. Owens primary care provider tomorrow at 2:00 p.m. as scheduled, if unable, to call primary care provider tomorrow morning to see if any changes with her blood pressure medications, continue with current blood pressure regimen at this time. Return if worsening symptoms. Activity Level: No Restrictions Prescriptions: No Action simethicone [Gas Relief (simethicone)] 125 mg capsule 125 mg PO BID@123,1830 Rx Instructions: AFTER LUNCH AND DINNER polyethylene glycol 3350 [Miralax] 17 gram/dose powder 17 g PO DAILY PRN calcium carbonate-vitamin D3 [Calcium 600 with Vitamin D3] 600 mg-12.5 mcg (500 unit) capsule 1 cap PO DAILY Saline Nasal 0.65 % aerosol,spray 1 spray intranasal BID PRN multivitamin [Daily Multi-Vitamin] Tablet 1 tab PO DAILY@12 Lactaid Fast Act 9,000 unit tablet,chewable 9,000 unit PO DAILY PRN Rx Instructions: administer with dairy as needed triamcinolone acetonide 0.1 % cream 1 applic topical BID-TID PRN ketoconazole 2 % shampoo 1 applic topical DIRECTED PRN betamethasone, augmented 0.05 % lotion 1 applic topical DAILY PRN sertraline 50 mg tablet 50 mg PO QPM Qty: 90 3RF prednisone 5 mg tablet 5 mg PO QAM Qty: 90 3RF levothyroxine 25 mcg tablet 25 mcg PO DAILY Qty: 90 4RF calcium carbonate 500 mg calcium (1,250 mg) tablet,chewable 500 mg PO BID@1230,1830 Rx Instructions: AFTER LUNCH AND DINNER Artificial Tears (cmc) 1 % drops 1 drp ophthalmic (eye) BID PRN losartan 50 mg tablet 50 mg PO BIDWM omeprazole 20 mg capsule,delayed release(DR/EC) 20 mg PO DAILY@1730 Rx Instructions: BEFORE EVENING MEAL ezetimibe 10 mg tablet 10 mg PO DAILY@12 Alvesco 160 mcg/actuation HFA aerosol inhaler 2 inh inhalation BID@0630,1830 chlorpheniramine maleate [Allergy-Time] 4 mg tablet 2 mg PO DAILY PRN ondansetron 4 mg tablet,disintegrating 4 mg PO BID-TID PRN (Reason: nausea and vomiting) Qty: 30 4RF lorazepam 0.5 mg tablet 0.25 mg PO BID PRN (Reason: anxiety) Qty: 30 0RF clonidine HCl 0.1 mg tablet 0.1 mg PO BIDWM Qty: 180 1RF nitroglycerin 0.4 mg tablet, sublingual 0.4 mg sublingual Q5-15M PRN (Reason: chest pain) Qty: 25 0RF albuterol sulfate 90 mcg/actuation HFA aerosol inhaler 2 puff INHALATION BID@0630,1830 Qty: 8.5 0RF Follow Up/Referrals: Loren Beyer MD [Primary Care Provider] - Stand Alone [facility]: [facility] Info Inst[facility]
[2024-09-19 16:35] VITALS: BP 209/79; PULSE 64; RESP 22; TEMP 36.6; O2SAT 96; BMI 24.0
[2024-09-19 17:15] LABS: Basophils Absolute Auto 0.07 K/uL (0.00-0.30); Basophils Percent Auto 0.8 % (0.0-3.0); Eosinophils Absolute Auto 0.17 K/uL (0.00-0.50); Eosinophils Percent Auto 2.1 % (0.0-7.0); Hematocrit 33.9 % (33.0-51.0); Hemoglobin* 10.4 gm/dL (12.0-16.0); Immature Granulocytes Abs Auto 0.02 K/uL (0.00-0.30); Immature Granulocytes Pct Auto 0.2 %; Mean Corpuscular HGB Conc 31 gm/dL (32-36); Mean Corpuscular Hemoglobin 24 pg (26-34); Mean Corpuscular Volume 77 fL (80-100); Monocytes Percent Auto 7.9 % (0.0-11.0); Platelet Count* 236 K/uL (140-440); RDW Coefficient of Variation % 15.9 % (11.5-15.5); Red Blood Count 4.38 m/uL (4.00-5.20); White Blood Count* 8.28 K/uL (4.50-11.00)
[2024-09-19 17:17] LABS: Slide Review Reflex No
[2024-09-19 17:25] LABS: Albumin* 3.9 g/dL (3.3-5.0); Chloride* 100 mmol/L (96-114); Sodium* 135 mmol/L (135-149)
[2024-09-19 17:26] LABS: Potassium* 3.8 mmol/L (3.6-5.1)
[2024-09-19 17:28] LABS: Alanine Aminotransferase* 38 U/L (4-35); Alkaline Phosphatase* 53 U/L (40-150); Anion Gap 6 mEq/L (7-15); Aspartate Amino Transferase* 40 U/L (12-35); Bilirubin Total* 0.4 mg/dL (0.1-1.5); Blood Urea Nitrogen* 23 mg/dL (7-30); Carbon Dioxide* 29 mmol/L (20-32); Creatinine* 0.8 mg/dL (0.5-1.5); Est. Creatinine Clearance* 32.64; Estimated Glomerular Filt Rate 71 ml/min
[2024-09-19 17:29] LABS: Calcium* 9.2 mg/dL (8.4-10.6); Glucose* 203 mg/dL (60-115)
[2024-09-19 17:36] LABS: Troponin, Point-of-Care* 0.01 ng/ml (0.01-0.04)
[2024-09-19 18:05] VITALS: BP 180/78
--- OUTSIDE RECORDS SUMMARY | 2024-09-19 19:49 | XMS_ITS | Encounter Summary ---
Author Organization [place] Address [address] [facility] 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
--- OUTSIDE RECORDS SUMMARY | 2024-09-19 19:49 | XMS_ITS | Encounter Summary ---
Author Organization [place] Address [address] [facility] 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 Gender Identity Not on file Sexual Orientation [...] dited Result - Final Performing Organization Address [facility] de Phone Number GENAROEZE PFT NON-INTERFACED [...] dited Result - Final Performing Organization Address [facility] Co de Phone Number JARRODE PFT NON-INTERFACED [...] dited Result - Final Performing Organization Address City/[facility]/ZIP Co de Phone Number BREEZE [...] on filedocumented in this encounter Care Teams Machine Set Up Operator Paper Goods Relationship Specialty Start Date End Date Loren Beyer MD [facility] [address] [place] [address] PCP - General Family Practice 11/15/17 Teresa Chiu, RN Registered Nurse Cardiology 07/15/23 01/17/24 Meenu Denis DO [address] [place] [address] Assigned Heart and Vascular Provider 07/29/23 documented as of this encounter
--- OUTSIDE RECORDS SUMMARY | 2024-09-19 19:49 | XMS_ITS | Encounter Summary ---
Author Organization [place] Address [address] 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 Gender Identity Not on file Sexual Orientation [...] dited Result - Final Performing Organization Address [facility] Co de Phone Number CITLALY [...] dited Result - Final Performing Organization Address [facility] Co de Phone Number CITLALY [...] on filedocumented in this encounter Care Teams Explosive Ordnance Disposal Specialist Relationship Specialty Start Date End Date Loren Beyer MD [facility] [address] [place] [address] PCP - General Family Practice 11/15/17 Teresa Chiu, RN Registered Nurse Cardiology 07/15/23 01/17/24 Meenu Denis DO [address] [place] [address] Assigned Heart and Vascular Provider 07/29/23 documented as of this encounter
--- OUTSIDE RECORDS SUMMARY | 2024-09-19 19:49 | XMS_ITS | Encounter Summary ---
Author Organization [place] Address [address] [place] [place] [address] Care Team Providers Care Magazine Filler Name Role Phone Loren Beyer MD Primary Care Provider + Brian Abreu MD Unavailable Sakina Osborne APRN WIND PROJECT MANAGER Unavailable [phone] Teresa Chiu RN Unavailable Unavaila Meenu Alves DO Unavailable [phone] Encounter Details Date Type Department Care Team (Late st Contact Info) Description 01/24/2023 External Order Results [facility] [address] [place] [address] Outside, Provider Social History Tobacco Use Types Packs/Day Years Used Date Smoking Tobacco: Never Smokeless Tobacco: Never Alcohol Use Standard Drinks/Week Comments No 0 (1 standard drink = 0.6 oz pur e alcohol) Comments No Sex and Gender Information Value Date Recorded Sex Assigned at Not on file 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 Gender Identity Not on file Sexual Orientation [...] BLOOD ORDERABLES Edited R esult - Final ICTLALY PFT NON-INTERFACED (ONBASE SCANS) * Hepatic function [...] Outside LAB - BLOOD ORDERABLES Edited R addwish - [employer] Performing Organization Address City/[facility]/ZIP Co de Phone Number GENAROEZE PFT [...] Outside LAB - BLOOD ORDERABLES Edited R addwish - Final GENAROEZE PFT NON-INTERFACED (ONBASE SCANS) [...] on filedocumented in this encounter Care Teams Magazine Filler Relationship Specialty Start Date End Date Loren Beyer MD [facility] & [address] [address] PCP - General Family Practice 11/15/17 Brian Abreu MD [address] [place] [address] [place] [id number] Assigned Heart and Vascular Provider 02/26/23 05/06/23 Sakina Osborne APRN WIND PROJECT MANAGER [address] [place] [address] Assigned Heart and Vascular Provider 05/07/23 07/28/23 Teresa Chiu, RN Registered Nurse Cardiology 07/15/23 01/17/24 Meenu Denis DO [address] [place] [id number] Assigned Heart and Vascular Provider 07/29/23 documented as of this encounter
--- OUTSIDE RECORDS SUMMARY | 2024-09-19 19:50 | XMS_ITS | Clinical Summary ---
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 (HC) Place [...] [facility]ICAL [facility]ENTER 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
--- OUTSIDE RECORDS SUMMARY | 2024-09-19 19:50 | XMS_ITS | Encounter Summary ---
Author Organization [place] Address [address] [facility] 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
--- OUTSIDE RECORDS SUMMARY | 2024-09-19 19:50 | XMS_ITS | Clinical Summary ---
Author Organization [place] Address [facility] 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,Benign essential hypertension,Mariana st [...] Type Department Care Team Description 07/14/2024 Telephone [facility] [address] [place] [address] Ncihelle Cazares, windlasser Refill (Needed her inhaler) from Last 3 Months Social History Tobacco [...] on file 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 Gender Identity Not on file Sexual [...] 2024 03/17/2023, 03/23/2022, 03/19/2021, Additional history exists LIPID 01/25/2024 01/24/2023 A1C 02/28/2024 11/28/2023, 09/05/2023 PHQ-2 (once per calendar year) 2024 01/23/2024, 02/25/2023 BMP 07/13/2024 01/13/2024, 12/15, 11/28/2023, Additional history exists ALT 11/27/2024 11/28/2023, 08/15, 01/24/2023, Additional history exists CBC 01/12/2025 01/13/2024, 12/15, 11/28/2023, Additional history exists INFLUENZA VACCINE (Season Ended) 2025 02/18/2023, 03/03/2022, 02/27/2021, Additional history exists Pneumococcal Vaccine: 50+ Years Completed 06/16/2017, 09/05/2014, 02/08/2007, Additional history exists TSH W/FREE T4 REFLEX Completed 01/12/2024 HPV IMMUNIZATION Aged Out No longer e ligible based on patient's age to complete this topic MENINGITIS IMMUNIZATION Aged Out No l onger eligible based on patient's age to complete this topic Medical Devices Implanted Type Area Generator Man Device Identifier Shelf Expiration Date Model / Serial / Lot Glenosphere 25mm Mini Baseplate Implanted:Qty: 1 on 01/30/2013 by Jc Farr MD at [facility] Right: Shoulder 11/12/2022 [id number] / / [id number] Humeral Bearing Standard 44-36mm Implanted:Qty: 1 on 01/30/2013 by Jc Farr MD at [facility] Right: Shoulder 10/12/2017 [id number] / / [id number] Implanted:Qty: 1 on 01/30/2013 by Jc Farr MD at [facility] Right: Shoulder 10/12/2022 [id number] / / [id number] 3.5 Hex Fixed Locking Screw [id number] Implanted:Qty: 1 on 01/30/2013 by Jc Farr MD at [facility] Right: Shoulder 12/12/2022 [id number] / / [id number] Fixed Hex Locking Screw Implanted:Qty: 1 on 01/30/2013 by Jc Farr MD at [facility] Right: Shoulder 12/12/2022 [id number] / / [id number] Hex Fixed Locking Screw Implanted:Qty: 1 on 01/30/2013 by Jc Farr MD at [facility] Right: Shoulder 12/12/2022 [id number] / / [id number] Fixed Locking Screw Implanted:Qty: 1 on 01/30/2013 by Jc Farr MD at [facility] Right: Shoulder 12/12/2022 [id number] / / [id number] Glenosphere 36mm Curve/Standard Implanted:Qty: 1 on 01/30/2013 by Jc Farr MD at [facility] Right: Shoulder 12/12/2022 [id number] / / [id number] 9x83mm Shoulder Stem Implanted:Qty: 1 on 01/30/2013 by Jc Farr MD at [facility] Right: Shoulder 10/12/2022 [id number] / / [id number] Humeral Tray 44mm Standard Implanted:Qty: 1 on 01/30/2013 by Jc Farr MD at [facility] Right: Shoulder 12/12/2022 [id number] / / [id number] Procedures Procedure Name Priority Date/Time Associated Diagnosis [...] - 145 mmol/L 01/13/2024 6:15 AM CDT [facility] Potassium 3.6 3.4 - 5.3 mmol/L 01/13/2024 6:15 AM CDT [facility] Chloride 103 98 - 107 mmol/L 01/13/2024 6:15 AM CDT [facility] Carbon Dioxide (CO2) 24 22 - [...] BLOOD ORDERABLES Final Res ult [facility] [address] [facility] (1st floor, no room number) [place] [address], [facility] * (ABNORMAL) CBC with platelets [...] - BLOOD ORDERABLES Final Res ult LABORATORY [facility] [address] [facility] (1st floor, no room number) [address] * TSH with free T4 reflex (01/12/2024 5:26 AM CDT) TSH 2.47 0.30 - 4.20 uIU/mL 01/12/2024 10:06 AM CDT [facility] Blood BLOOD SPECIMEN / Unknown Venipuncture / Unknown 01/12/2024 5:26 AM CDT 01/12/2024 5:31 AM CDT us Jenise Bailey MD LAB - BLOOD ORDERABLES Fi nal Result LABORATORY [facility] [address] [facility] (1st floor, no room number) [address] * Hepatic function panel (11/28/2023 9:30 AM [...] dited Result - Final Performing Organization Address [facility] Co de Phone Number GENAROE PFT NON-INTERFACED (ONBASE SCANS) * (ABNORMAL) Hemoglobin A1c (11/28/2023 9:30 AM CDT) Hemoglobin A1C (External) 7.4(H) 0 - 5.6 % NON-INTERFACED (ONBASE SCANS) Blood BLOOD SPECIMEN / Unknown 11/28/2023 9:30 AM CDT Narrative JARRODE PFT - 12/23/2023 11:04 AM CDT Verified by Gini Johnson on 12/23/2023. Loren Beyer MD LAB - BLOOD ORDERABLES E dited Result - Final Performing Organization Address City/[facility]/ZIP Co de Phone Number [facility] PFT NON-INTERFACED (ONBASE SCANS) * Lipid Profile [...] Most Recently Relevant to Health Maintenance Insurance [employer] MEDICARE [employer] MEDICARE Advance Directives For more information, please contact: [phone] * No CPR- Do NOT Intubate (Latest Code Status on File) Date Activated Date Inactivated Comments 01/12/2024 6:51 AM 01/13/2024 5:55 PM NO basic or advanced life-sustaining interventions are performed Question Answer Comments Code status determined by: Discussion with patie nt/ legal decision maker * DNR/DNI Date Activated Date Inactivated Comments 01/30/2013 12:12 PM 02/02/2013 12:40 PM Care Teams Order Administrator Relationship Specialty Start Date End Date Loren Beyer MD [facility] [address] [place] [address] PCP - General Family Practice 11/15/17 Meenu Denis DO [address] [place] [address] Assigned Heart and Vascular Provider 07/29/23
--- OUTSIDE RECORDS SUMMARY | 2024-09-19 19:52 | XMS_ITS | Clinical Summary ---
Author Organization [facility] Address [address] [facility] , [address] [place] [address] Phone Care Team Providers Care Typing Bookkeeper Name Role Phone [facility] Unavailable Unava ilable Conditions or Problems Problem Name Problem Code Onset Date Status Entry Date Provider Comment Standard Description Annotate Hand weakness, right 588348684 (SNOMED CT) Active Simon Esquivel MD Weakness of hand Tingling, hand 201112930 (SNOMED CT) Active Simon Esquivel MD Tingling [...] Procedures Code Procedure Name Date Entry Date CPT-10706 Nerve Conduction 5-6 studies CPT-06148 EMG with NCS (5+ muscles) - 1 limb 05/18 Vital Signs No information available. Immunizations No information available. Advance Directives No information available.
== END 2024-09-19 18:06 | disposition home or self-care (01) ==
PROVIDERS: Emergency Provider Student in an Organized Health Care Education/Training Program; PCP Family Medicine
DX: R03.0 Elevated blood-pressure reading, without diagnosis of hypertension (principal)
CPT/HCPCS: 36415; 80053; 84443; 84484; 85025; 93005; 99283; 99284

== ENCOUNTER 2024-11-02 11:18 | Outpatient (CLI) | payer MEDICARE, OTHER, MEDICAID, SELFPAY ==
--- OUTSIDE RECORDS SUMMARY | 2024-11-06 00:16 | XMS_ITS | Clinical Summary ---
Author Organization [facility] Address [address] [facility] , [address] [place] [address] Phone Care Team Providers Care Burring Wheel Operator Name Role Phone [facility] Unavailable Unava ilable Conditions or Problems Problem Name Problem Code Onset Date Status Entry Date Provider Comment Standard Description Annotate Hand weakness, right [id number] (SNOMED CT) Active Simon Esquivel MD Weakness of hand Tingling, hand [id number] (SNOMED CT) Active Simon Esquivel MD Tingling [...] Procedures Code Procedure Name Date Entry Date CPT-12766 Nerve Conduction 5-6 studies CPT-12542 EMG with NCS (5+ muscles) - 1 limb 05/18 Vital Signs No information available. Immunizations No information available. Advance Directives No information available.
--- OUTSIDE RECORDS SUMMARY | 2024-11-06 00:17 | XMS_ITS | Encounter Summary ---
Author Organization [facility] Address [address] [facility] 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
--- OUTSIDE RECORDS SUMMARY | 2024-11-06 00:17 | XMS_ITS | Encounter Summary ---
Author Organization [place] Address [address] [facility] 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 [address] [place] [address] PCP - General Family Practice 11/15/17 Teresa Chiu, RN Registered Nurse Cardiology 07/15/23 01/17/24 Meenu Denis DO [address] [place] [address] Assigned Heart and Vascular Provider 07/29/23 documented as of this encounter
--- OUTSIDE RECORDS SUMMARY | 2024-11-06 00:17 | XMS_ITS | Clinical Summary ---
Author Organization [place] Address [facility] [place] [address] Care Team Providers Care System Integration Engineer Name Role Phone Loren Beyer MD Primary Care Provider + Meenu Denis DO Unavailable [phone] Allergies Active Allergy Reactions Criticality Noted Date [...] sodium chloride (OCEAN) 0.65 % nasal spray [place] 1 spray in nostril daily as needed [...] 50 MG tabletIndication s:Coronary artery disease involving [place] coronary artery of [place] heart without angina pectoris,Benign essential hypertension,Mariana st [...] in an abandoned building, in an overnight fdc, or couch-surfing.) Yes 01/12/2024 Are you worried [...] on file Legal Sex Female 5:08 AM SUGAR DRIER Gender Identity Not on file Sexual Orientation [...] this topic Medical Devices Implanted Type Area Media Services Coordinator Device Identifier Shelf Expiration Date Model / Serial / Lot Glenosphere 25mm Mini Baseplate Implanted:Qty: 1 on 01/30/2013 by Jc Farr MD at [facility] Right: Shoulder 11/12/2022 [id number] / / [id number] Humeral Bearing Standard 44-36mm Implanted:Qty: 1 on 01/30/2013 by Jc Farr MD at [facility] Right: Shoulder 10/12/2017 [id number] / / [id number] Implanted:Qty: 1 on 01/30/2013 by Jc Farr MD at [facility] Right: Shoulder 10/12/2022 [id number] / / [id number] 3.5 Hex Fixed Locking Screw [id number] Implanted:Qty: 1 on 01/30/2013 by Jc Farr MD at [facility] Right: Shoulder 12/12/2022 [id number] / / [id number] [id number] Fixed Hex Locking Screw Implanted:Qty: 1 on 01/30/2013 by Jc Farr MD at [facility] Right: Shoulder 12/12/2022 [id number] / / [id number] Hex Fixed Locking Screw Implanted:Qty: 1 on 01/30/2013 by Jc Farr MD at [facility] Right: Shoulder 12/12/2022 [id number] / / [id number] Fixed Locking Screw Implanted:Qty: 1 on 01/30/2013 by Jc Farr MD at [facility] Right: Shoulder 12/12/2022 [id number] / / [id number] Glenosphere 36mm Curve/Standard Implanted:Qty: 1 on 01/30/2013 by Jc Farr MD at [facility] Right: Shoulder 12/12/2022 [id number] / / [id number] 9x83mm Shoulder Stem Implanted:Qty: 1 on 01/30/2013 by Jc Farr MD at [facility] Right: Shoulder 10/12/2022 [id number] / / [id number] Humeral Tray 44mm Standard Implanted:Qty: 1 on 01/30/2013 by Jc Farr MD at [facility] Right: Shoulder 12/12/2022 [id number] / / [id number] Procedures Procedure Name Priority Date/Time Associated Diagnosis [...] BLOOD ORDERABLES Final Res ult RH LABORATORY [facility] [address] Lab (1st floor, no room number) [place] [address] * (ABNORMAL) CBC with platelets (01/13/2024 [...] - BLOOD ORDERABLES Final Res ult LABORATORY [facility] [address] Lab (1st floor, no room number) [place] [address] * TSH with free T4 reflex (01/12/2024 5:26 AM CDT) Pathologist [facility] TSH 2.47 0.30 - 4.20 uIU/mL 01/12/2024 10:06 AM CDT LABORATORY Blood BLOOD SPECIMEN / Unknown Venipuncture / Unknown 01/12/2024 5:26 AM CDT 01/12/2024 5:31 AM CDT Jenise Bailey MD LAB - BLOOD ORDERABLES Fi nal Result LABORATORY [facility] [address] Lab (1st floor, no room number) [place] [address] * Hepatic function panel (11/28/2023 9:30 [...] dited Result - Final Performing Organization Address City/[facility]/ZIP Co de Phone Number CITLALY PFT NON-INTERFACED [...] Most Recently Relevant to Health Maintenance Insurance [employer] MEDICARE [employer] MEDICARE Advance Directives For more information, please contact: [phone] * No CPR- Do NOT Intubate (Latest Code Status on File) Date Activated Date Inactivated Comments 01/12/2024 6:51 AM 01/13/2024 5:55 PM NO basic or advanced life-sustaining interventions are performed Question Answer Comments Code status determined by: Discussion with patie nt/ legal decision maker * DNR/DNI Date Activated Date Inactivated Comments 01/30/2013 12:12 PM 02/02/2013 12:40 PM Care Teams System Integration Engineer Relationship Specialty Start Date End Date Loren Beyer MD [facility] [address] [place] [address] PCP - General Family Practice 11/15/17 Meenu Denis DO [address] [place] [address] Assigned Heart and Vascular Provider 07/29/23
--- OUTSIDE RECORDS SUMMARY | 2024-11-06 00:17 | XMS_ITS | Encounter Summary ---
Author Organization [place] Address [address] [facility] 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
--- OUTSIDE RECORDS SUMMARY | 2024-11-06 00:17 | XMS_ITS | Encounter Summary ---
Author Organization [facility] Address [address] [facility] [place] [address] Care Team Providers Care Shear Grinder Operator Helper Name Role Phone Loren Beyer MD Primary Care Provider + Brian Abreu MD Unavailable Sakina Osborne APRN CIRCULATION CREW LEADER Unavailable [phone] Teresa Chiu RN Unavailable Unavaila Meenu Alves DO Unavailable [phone] Encounter Details Date Type Department Care Team (Late st Contact Info) Description 01/24/2023 External Order Results [facility] [address] [place] [address] Outside, Provider Social History Tobacco Use Types Packs/Day Years Used Date Smoking Tobacco: Never Smokeless Tobacco: Never Alcohol Use Standard Drinks/Week Comments No 0 (1 standard drink = 0.6 oz pur e alcohol) Comments No Sex and Gender Information Value Date Recorded Sex Assigned at Not on file Legal Sex Female 5:08 AM MD 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 Gender Identity Not on file Sexual Orientation [...] Outside LAB - BLOOD ORDERABLES Edited R [employer] - Beat My Waste Quote Performing Organization Address City/[facility]/ZIP Co de Phone Number GENAROEZE PFT [...] Outside LAB - BLOOD ORDERABLES Edited R [employer] - Final GENAROEZE PFT NON-INTERFACED (ONBASE SCANS) [...] on filedocumented in this encounter Care Teams Shear Grinder Operator Helper Relationship Specialty Start Date End Date Loren Beyer MD [facility] & [address] [address] PCP - General Family Practice 11/15/17 Brian Abreu MD [address] [place] [address] [place] [address] Assigned Heart and Vascular Provider 02/26/23 05/06/23 Sakina Osborne APRN CIRCULATION CREW LEADER [address] [place] [address] Assigned Heart and Vascular Provider 05/07/23 07/28/23 Teresa Chiu, RN Registered Nurse Cardiology 07/15/23 01/17/24 Meenu Denis DO [address] [place] [id number] Assigned Heart and Vascular Provider 07/29/23 documented as of this encounter
--- OUTSIDE RECORDS SUMMARY | 2024-11-06 00:17 | XMS_ITS | Encounter Summary ---
Author Organization [place] Address [address] [facility] 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 DEODORIZER OPERATOR Gender Identity Not on file Sexual [...] dited Result - Final Performing Organization Address [facility] de Phone Number GENAROEZE PFT NON-INTERFACED [...] dited Result - Final Performing Organization Address [facility] Co de Phone Number JARRODE [...] dited Result - Final Performing Organization Address City/[facility]/ZIP Co de Phone Number BREEZE PFT NON-INTERFACED [...] on filedocumented in this encounter Care Teams Dielectric Testing Machine Operator Relationship Specialty Start Date End Date Loren Beyer MD [facility] [address] [place] [address] PCP - General Family Practice 11/15/17 Teresa Chiu, RN Registered Nurse Cardiology 07/15/23 01/17/24 Meenu Denis DO [address] [place] [address] Assigned Heart and Vascular Provider 07/29/23 documented as of this encounter
== END 2024-11-02 11:19 | disposition home or self-care (01) ==
LOC: AMB 11-05 09:30
PROVIDERS: PCP Family Medicine; Visit Provider Internal Medicine
DX: R41.82 Altered mental status, unspecified (principal); H54.7 Unspecified visual loss; F80.9 Developmental disorder of speech and language, unspecified
CPT/HCPCS: A0425; A0427

== ENCOUNTER 2024-11-02 11:47 | Observation (INO) | payer MEDICARE, OTHER, SELFPAY ==
--- OUTSIDE RECORDS SUMMARY | 2022-10-26 04:30 | XMS_ITS | Continuity of Care Document ---
Author Organization [facility] Address [address] [address] [place] [address] Phone Care Team Providers Care Paper Box Maker Name Role Phone Alfred Rios MD, Armaan Unavailable Unavailabl e Allergies, Adverse Reactions, Alerts Substance Reaction Status Criticality codeine Active No Information loratadine Active No Information aspirin Unknown Active No Information ATORVASTATIN CALCIUM Unknown Active No Info rmation alendronate sodium Unknown Active No Inform ation petrolatum,white Rash Active No Informat ion Sulfa (Sulfonamide Antibiotics) Unknown Active No Information Penicillins Unknown reaction Active No Informat ion oxycodone Hallucinations Active No Informatio n WARNIN allergy(ies) could not be collected because the type is not supported. Please contact the source practice for further details. Medications Medication Instructions Dosage Effective Dates (start - stop) Status Comments Flovent HFA 220 mcg/actuation aerosol inhaler inhale 2 puff by inhalation route 2 times every day - Active ChlorTabs 4 mg tablet take 1 tablet by oral route as needed - Active omeprazole 40 mg capsule,delayed release take 1 capsule by ORAL route every day before a meal 40 MG - Active Ventolin HFA 90 mcg/actuation aerosol inhaler inhale 2 puff by inhalation route every 4 - 6 hours as needed - Active ALBUTEROL SULFATE (unknown strength) solution by nebulizer; PRN Not Available - Active Herbal medications/supplemen ts (unknown strength) antibioltic for respiratory infection or cold for 10 days. Usually when post-nasal drip from cold; PRN Not Available - Active PREDNISONE (unknown strength) 20 mg for 5 days; 10 mg for 5 days; 10 mg every other day for 5 days; for asthma flare-ups; PRN Not Available - Active CALCIUM 600-VIT D3 (unknown strength) take 1 by Oral route every day Not Available - Active multivitamin tablet take 1 tablet by oral route every day with food - Active LACTASE (unknown strength) take with dairy products; PRN Not Available - Active Antacid 550 mg-110 mg chewable tablet take as needed - Active CLONIDINE HCL (unknown strength) take half of a .5 mg tablet 2 times everyday Not Available - Active ondansetron 4 mg disintegrating tablet disolve 1 tablet under tougue as needed - Active Synthroid 25 mcg tablet take 1 tablet by oral route every day 25 MCG - Active sertraline 50 mg tablet take 1 Tablet by ORAL route every day 50 MG - Active Evista 60 mg tablet take 1 tablet by oral route every day 60 MG - Active Procedures Procedure Date Offic/outpt E&m Estab [facility] 8 Ugi Endo; W/insrt Guide Wire Ugi Endo; W/bx 1/mx Offic/outpt E&m Estab [facility] 2 18 Offic/outpt E&m Estab [facility] 2 18 Offic/outpt E&m Estab [facility] 2 16 Offic/outpt E&m Estab [facility] 2 15 Offic/outpt E&m Estab [facility] Offic/outpt E&m Estab [facility] 4 Offic/outpt E&m Estab [facility] 4 Offic/outpt E&m [facility] Advance Directives Directive Yes / No Effective Date File Name No Information Encounters Encounter Description Practice Location Reason(s) For Visit Diagnoses Date Provider Providers Copied on Encounter [facility] DAYNA HARMAN [address] [address], [place], [id number], [place] tel:[phone] [facility] No Information 3 Alfred Crook. [address] [facility], [facility], [id number] , [place]. tel:[phone] [facility], [address] [address], [place], [place], [id number], [place] tel:[phone] [facility] No Information 3 Alfred Crook. [address] [facility], [place], [place], [id number] , [place]. [phone] Offic/outpt E&m Estab Low-mod [facility], [address] [address], [place], [place], [id number], [place] tel:[phone] [facility] GI Symptoms or Concerns (chief complaint) Gastroesophageal reflux disease without esophagitisGastr oparesisEssentia l (primary) hypertension 8 Edelmira Yates . [address] [facility], [facility] [address], [facility] [place], [id number] , [place]. tel:[phone] Referring Provider: Loren Beyer MD, [address] [place], [address]. tel:[phone] [facility], [address] [address], [place], [place], [id number], [place] tel:[phone] [facility] No Information 8 Mikie Whitman. [address] [facility], [facility] [address], [facility] [place], [id number] , [place]. tel:[phone] Referring Provider: Loren Beyer MD, [address] [place], [address]. tel:[phone] Offic/outpt E&m Estab Mod-hi 2 [facility], [address] [address], [place], [place], [id number], [place] tel:[phone] [facility] GI Symptoms or Concerns (chief complaint) Dysphagia, unspecified typeGastroesopha geal reflux disease, esophagitis presence not specifiedFull incontinence of feces 8 Edelmira Yates . [address] [facility], [facility] [address], [facility] [place], [id number] , [place]. [phone] Referring Provider: Referral Self, USE FOR SELF REFERRALS. Offic/outpt E&m Estab Mod-hi 2 [facility], [address] [address], [place], [address], [place] tel:[phone] [facility] GI Symptoms or Concerns (chief complaint) Gastroesophageal reflux disease, esophagitis presence not specifiedDysphag ia, unspecified typeEssential (primary) hypertension 8 Edelmira Yates . [address] [facility], [facility] [address], [facility] [place], [id number] , [place]. tel:[phone] Referring Provider: Loren Beyer MD, [address] [place] [address], [address]. tel:[phone] Offic/outpt E&m Estab Mod-hi 2 [facility], [address] [address], [place], [address], [place] tel:[phone] [facility] GI Symptoms or Concerns (chief complaint) GastroparesisChr onic constipationHear tburnEssential (primary) hypertension 6 Abbey Ayala. [address] [facility], [facility] [address], [facility] [place], [address] , [place]. tel:[phone] Referring Provider: Referral Self, USE FOR SELF REFERRALS. Offic/outpt E&m Estab Mod-hi 2 [facility], [address] [address], [place], [id number], [place] tel:[phone] [facility] GI Symptoms or Concerns (chief complaint) Irritable Colon 5 Jaylen Nicole. [address] [facility], [address], [place], [place], [address] , [place]. tel:[phone] Referring Provider: Referral Self, USE FOR SELF REFERRALS. Offic/outpt E&m Estab Low-mod [facility], [address] [address], [place], [address], [place] tel:[phone] [facility] GI Symptoms or Concerns (chief complaint) Additional Narrative (chief complaint) GastroparesisDie tary Surveil/counselE lev Bl Pres W/o Hypertn 4 Clement Marvin. [address] [facility], [address], [place], [place], [address] , [place]. tel:[phone] Referring Provider: Referral Self, USE FOR SELF REFERRALS. Offic/outpt E&m Estab Low-mod [facility], [address] [address], [place], [id number], [place] tel:[phone] [facility] Abd Pain Generalized Jul- 4 Clement Marvin. [address] [facility], [address], [place], [place], [address] , [place]. [phone] Referring Provider: Arlin Ayala, [address] [place], [address]. tel:[phone] Offic/outpt E&m Estab Low-mod [facility], [address] [address], [place], [id number], [place] tel:[phone] [facility] Dyspepsia/acid Peptic DiseaseConstipat ion Unspecified 4 Ethan Ramirez. [address] [facility], [address], [place], [place], [address] , [place]. tel:[phone] Referring Provider: Arlin Ayala, [address] [facility], [place], [address]. tel:[phone] Offic/outpt E&m New Mod-hi [facility], [address] [address], [place], [id number], [place] tel:[phone] [facility] Dyspepsia/acid Peptic Disease 4 Clement Marvin. [address] [facility], [address], [place], [place], [address] , [place]. tel:[phone] Referring Provider: Arlin Ayala, [address] [place], [address]. tel:[phone] Family History Family Member Type Diagnosis Age At Onset Sister Problem (finding) Thyroid disorder Sister Problem (finding) asthma Daughter Problem (finding) gallbladder disease First degree family history Problem (finding) GERD First degree family history Problem (finding) alcoholi sm First degree family history Problem (finding) Autoimmu ne condition Immunizations Vaccine Date Status Comments SARS-COV-2 (COVID-19) vaccin e, mRNA, spike protein, LNP, bivalent booster, preservative free, 30 mcg/0.3 mL dose, sayra-sucrose formulation administered Note: [facility] bi-d irectional interface ; Source: Other Registry influenza, high-dose seasona l, quadrivalent, 0.7mL dose, preservative free administered Note: [facility] bi-direct ional interface ; Source: Other Registry SARS-COV-2 (COVID-19) vaccin e, mRNA, spike protein, LNP, preservative free, 100 mcg/0.5mL dose or 50 mcg/0.25mL dose administered Note: [facility] bi-direct ional interface ; Source: Other Registry influenza, high-dose seasona l, quadrivalent, 0.7mL dose, preservative free administered Note: [facility] bi-direct ional interface ; Source: Other Registry SARS-COV-2 (COVID-19) vaccin e, mRNA, spike protein, LNP, preservative free, 100 mcg/0.5mL dose or 50 mcg/0.25mL dose administered Note: [facility] bi-direct ional interface ; Source: Other Registry SARS-COV-2 (COVID-19) vaccin e, mRNA, spike protein, LNP, preservative free, 100 mcg/0.5mL dose or 50 mcg/0.25mL dose administered Note: [facility] bi-direct ional interface ; Source: Other Registry influenza, high dose seasona l, preservative-free administered Note: [facility] bi-direct ional interface ; Source: Other Registry influenza, high dose seasona l, preservative-free administered Note: [facility] bi-direct ional interface ; Source: Other Registry Pneumovax administered Note: [facility] bi-d irectional interface ; Source: Other Registry influenza, high dose seasona l, preservative-free administered Note: [facility] bi-direct ional interface ; Source: Other Registry Influenza, injectable, quadrivalent, preservative free, 3 yrs or older administered Source: Other Provi boo influenza, high dose seasona l, preservative-free administered Note: [facility] bi-direct ional interface ; Source: Other Registry Pneumococcal conjugate PCV administere d Source: Other Provider Influenza virus vaccine, injectable, quadrivalent, split virus, preservative free, 3 years or older Fluarix Quad administered Source: Other Provid er influenza, high dose seasona l, preservative-free administered Note: [facility] bi-direct ional interface ; Source: Other Registry Prevnar administered Note: [facility] bi-d irectional interface ; Source: Other Registry influenza, high dose seasona l, preservative-free administered Note: [facility] bi-direct ional interface ; Source: Other Registry Flu (split) (3 yrs or older) administered Note: Invalid documented admin date was . ; Source: Other Provider Influenza, seasonal, injectable, preservative free administered Note: [facility] bi-directional interface ; Source: Other Registry Influenza, seasonal, injectable, preservative free administered Note: [facility] bi-directional interface ; Source: Other Registry Influenza, seasonal, injectable, preservative free administered Note: [facility] bi-directional interface ; Source: Other Registry Influenza, seasonal, injectable administe red Note: [facility] bi- directional interface ; Source: Other Registry Influenza, seasonal, injectable, preservative free administered Note: [facility] bi-directional interface ; Source: Other Registry Novel [id number], all formulations administered Note: [facility] bi-direct ional interface ; Source: Other Registry Influenza, seasonal, injectable administe red Note: [facility] bi- directional interface ; Source: Other Registry Influenza, seasonal, injectable administe red Note: [facility] bi- directional interface ; Source: Other Registry Influenza, seasonal, injectable administe red Note: [facility] bi- directional interface ; Source: Other Registry Pneumovax 23 administered Note: [facility] bi-d irectional interface ; Source: Other Registry Influenza, seasonal, injectable administe red Note: [facility] bi- directional interface ; Source: Other Registry Pneumo (2 yrs or older)(PPV) administered Note: Invalid documented admin date was NULL/NULL/2003. ; Source: Other Provider influenza virus vaccine, unspecified formulation administered Note: [facility] bi-di rectional interface ; Source: Other Registry influenza virus vaccine, unspecified formulation administered Note: [facility] bi-di rectional interface ; Source: Other Registry Payers Payer name Insurance type Covered alliance party ID Authoriza tion(s) [employer] [id number] Social History Type Description Quantity Date Captured Comments Sex Female Smoking Status No Information Chief Complaint And Reason For Visit No Information Reason For Referral Reason For Referral No Information Plan Of Treatment Date Type Action Status Goal Lifestyle education regardin g diet completed Referral Ordered: EGD With Dilation Appointment date/timeframe: 11/25/2017 ordered History Of Present Illness Encounter Date Complaint History Of Prese nt Illness GI Symptoms or Concerns This is an 82-year-old woman who presents in followup for reflux symptoms and swallowing trouble. I last saw her in clinic in mid October. She had an underlying history of gastroparesis made in [place] many years ago, with an associated chronic low appetite and postprandial epigastric symptoms. She had worsening symptoms and required an increase from her baseline of omeprazole 20 mg twice daily up to omeprazole 40 mg twice daily. She did not tolerate the pill form of sucralfate and so we changed to the liquid form. Unfortunately, she felt that it was too gritty for her to tolerate. I had recommended upper endoscopy because she was having trouble with swallowing. There was food sticking in her mid chest and then episodes of severe chest tightness that sounded like esophageal spasm. My colleague performed her endoscopy and she was found to have a small hiatal hernia. There is a mild Schatzki's ring that was dilated. She had some benign appearing gastric polyps and esophageal biopsi GI Symptoms or Concerns This is a delightful 82-year-old woman who presents in followup for reflux and dysphagia. She has an underlying diagnosis of gastroparesis made in [place] many years ago. She has a chronically low appetite related to this with some postprandial epigastric symptoms. She is taking omeprazole 20 mg twice daily, although has had worsening symptoms in her chest and even acid brash every morning. Her primary provider increased her omeprazole to 40 mg twice daily. She did not tolerate the pill form of sucralfate, so we changed it to the liquid form. This has been far easier to take and she does feel that it helps with breakthrough symptoms. Unfortunately, she feels it has worsened constipation. She continues to have intermittent food sticking in her mid chest. She also feels at times that there is a pouch in the right neck where food will become lodged and she needs to rinse it down with liquid. She reports that she is losing the enamel on the back sides of her teeth. She had one epi GI Symptoms or Concerns This is an 81-year-old woman who presents regarding worsening reflux symptoms and dysphagia. She last saw my colleague in 2015. She has a history of chronic reflux as well as a diagnosis of gastroparesis made in [place] many years ago. She has a chronically low appetite related to this and also has a tendency to her reflux disease. She typically takes omeprazole 20 mg twice daily. About once per week, she has needed generic Maalox to help with some breakthrough symptoms. Unfortunately, 6 days ago, she had an episode of awakening with reflux in her mouth and a sense of swishing in her upper abdomen with pain in the epigastrium. Ever since she has had consistent reflux symptoms. She saw her primary provider who increased her omeprazole to 40 mg twice daily. They also added sucralfate and although she cannot tolerate the pill, she is mixing it with water and it does seem to help with symptoms. She does not have any clear dietary triggers. She does not consume any caffeine or alco GI Symptoms or Concerns Lee Haile is a pleasant 79-year-old female whom I saw in clinic today for discussion of chronic GI complaints. Her main issues today are of constipation, nausea, and epigastric pain. All these symptoms have been long lasting and then presented for years. She does have a history of gastroparesis that was diagnosed in [place] a number of years ago. However, she does report frequent postprandial nausea. Sometimes she can have nausea just after she eats or drinks anything. She rarely vomits. She also has some upper abdominal pain that accompanies the nausea. Occasionally, she has more diffuse abdominal pain.She also reports constipation, which is a chronic problem for her. Her stools are hard. She can go up to three to four days without having a bowel movement. She has been using a stool softener in the evening. She has also been taking two teaspoons of MiraLax and that made her stools softer. She does also report some incontinence of stool. This happens about twice a GI Symptoms or Concerns Lee Torres) is a 79-year-old woman that we are seeing with the change in bowel habits. She states that she was doing well, but have been treated for reflux with omeprazole. Most recently in October, she went off this medicine, started Prevacid. It was after this that she developed some bloating, abdominal discomfort, and looser stools.This is in contrast to a normal constipation that she has. These symptoms were associated with the sense of bloating and fullness.When seen by her physician, she was placed on MiraLax, which she subsequently stopped as her stools have gotten looser.She is concerned that this could be medication, relating with this we are seeing her. She describes a history of over 50 years of variable bowel habits. Usually, she is constipated but this does seem to alternate with diarrhea. She will have several bowel movements in the morning and then is able to function during the course of the day. With her symptoms, she has had multiple CT scans GI Symptoms or Concerns The symp toms are reported as being mild. The symptoms occur daily. The location is stomach. She states the symptoms are chronic. Additional Narrative Ms. Unger is a 78-year-old woman with a history of gastroparesis, chronic constipation, reflux disease, asthma, postherpetic neuralgia, hypertension, and depression who is seen for symptoms of abdominal pain, reflux, and bloating.She has suffered with abdominal pain for nearly 30 years. She describes as a constant aching discomfort in the bilateral upper abdominal quadrants, like a band across her midsection. The symptoms fluctuating and tend to get worse after eating, particularly after eating spicy foods. After eating she tends to feel particularly full with bloating and a sense of excess belching. She also develops nausea along with this pain; this is more common eating as well. The symptoms have been longstanding as mentioned; however, progressive worsening recently.We talked primarily today about her systemic complaints (nausea, fatigue, upset stomach, poor appetite, dizzyness). She seems to believe her symptom have mproved somewhat with treatment of hyponatremia.She had been maintained and omeprazole but twice daily. Otherwise, she has been using Zofran as needed.Gastric emptying study: abnormal (results unavailable)CT Abd (July 2013): 11mm gallstone, otherwise leandro.CT head (May 2013) apparently unremarkable, this report is unavailable.Upper endoscopies (June 2013) demonstrated a small hiatal hernia, fundal gland polyps, otherwise normal including gastric and duodenal biopsies.Esophagram (July 2010) suggested possible reflux, otherwise normal without any evidence of strictures or masses within the esophagus. She has had two other upper endoscopies (July 2009 and October 2005) reports unavailable. Functional Status Date Functional Assessmen t No Information Instructions Date Instruction Additional Infor roxanna I recommend that we slowly wean down her omeprazole back to 20 mg twice daily as tolerated. I recommend against use [...] especially if symptoms are to worsen again. Related to Gastroesophageal reflux disease without esophagitis We will proceed with upper endoscopy at [facility] to include possible dilation and esophageal biopsies. If [...] of her issues with incontinence and constipation. Related to Dysphagia, unspecified type I recommend continui ng her omeprazole 40 mg twice daily and sucralfate. I gave her prescription for the liquid form of sucralfate to see if that [...] point because I do not feel would pipe changer. We discussed that this could certainly increase reflux symptoms in general and the best diet for her would be typically be a low fat, low fiber diet as tolerated, with small frequent meals. Related to Gastroesophageal reflux disease, esophagitis presence not specified 1. Continue lansopra zole 30 mg p.o. b.i.d.2. Continue Gaviscon p.r.n.3. Zofran as scheduled [...] to call with any questions or concerns. Related to Gastroparesis gastroparesis Related to Heart burn constipation Related to Heart burn Most of the patient' s symptoms are functional. It is entirely possible the Prevacid [...] with her primary physician Dr. López in [place]. Related to Irritable Colon 1.) I would a agree with Reglan (metoclopramide) starting at 5mg twice-daily (prior to meals). I will often use this as 2 weeks on & 2 weeks off. If this is ineffective the dose can be increased.2.) You could also consider Domperidone 10mg twice daily. This would have to be ordered through [facility] however. Related to Gastroparesis Gastroparesis Folder Related to Gastroparesis Lifestyle education regarding di et Related to Dietary surveillance and counseling Assessments Type Assessment Date No Information Patient Care Teams Name Effective Dates (start - stop) Status Members No Information
--- OUTSIDE RECORDS SUMMARY | 2022-10-26 04:30 | XMS_ITS | Continuity of Care Document ---
Author Organization [facility] Address [address] [address] [place] [address] Phone Care Team Providers Care Nurse Wound Care Name Role Phone Alfred Rios MD, Armaan [...] Active Procedures Procedure Date Offic[facility]outpt [facility] Ugi Endo; W/insrt Guide Wire Ugi Endo; W/bx 1/mx Offic/outpt E&m Estab [facility] 2 18 Offic/outpt E&m Estab [facility] 2 18 Offic/outpt E&m Estab [facility] 2 16 Offic/outpt E&m Estab [facility] 2 15 Offic/outpt E&[facility] Offic/outpt E&m [facility] Offic/outpt E&m [facility] 4 Offic/outpt E&m [facility] Advance Directives Directive Yes / No Effective Date File Name No Information Encounters Encounter Description Practice Location Reason(s) For Visit Diagnoses Date Provider Providers Copied on Encounter [facility] DAYNA HARMAN [address] [address], [place], [id number], [place] tel:[phone] [facility] No Information 3 Alfred Crook. [address] [facility] [address] [address], [facility] [place], [id number] , [place]. tel:[phone] [facility], [address] [address], [place], [id number], [place] tel:[phone] [facility] No Information 3 Alfred Crook. [address], [place], [place], [address] , [place]. [phone] Offic/outpt E&m Estab Low-mod [facility], [address] [address], [place], [place], [address], [place] tel:[phone] [facility] GI Symptoms or Concerns (chief complaint) Gastroesophageal reflux disease without esophagitisGastr oparesisEssentia l (primary) hypertension 8 Edelmira Yates . [address] [facility], [facility] [address], [facility] [place], [id number] , [place]. tel:[phone] Referring Provider: Loren Beyer MD, [address] [place], [address]. tel:[phone] [facility], [address] [address], [place], [address], [place] tel:[phone] [facility] No Information 8 Mikie Whitman. [address] [facility], [facility] [address], [facility], [id number] , [place]. tel:[phone] Referring Provider: Loren Beyer MD, [address] [place], [address]. tel:[phone] Offic/outpt E&m Estab Mod-hi 2 [facility], [address] [address], [place], [id number], [place] tel:[phone] [facility] GI Symptoms or Concerns (chief complaint) Dysphagia, unspecified typeGastroesopha geal reflux disease, esophagitis presence not specifiedFull incontinence of feces 8 Edelmira Yates . [address] [facility], [facility] [address], [facility] [place], [id number] , [place]. tel:[phone] Referring Provider: Referral Self, USE FOR SELF REFERRALS. Offic/outpt E&m Estab Mod-hi 2 [facility], [address] [address], [place], [address], [place] tel:[phone] [facility] GI Symptoms or Concerns (chief complaint) Gastroesophageal reflux disease, esophagitis presence not specifiedDysphag ia, unspecified typeEssential (primary) hypertension 8 Edelmira Yates . [address] [facility], [facility] [address], [facility] [place], [address] , [place]. tel:[phone] Referring Provider: Loren Beyer MD, [address] [place] [address], [address]. tel:[phone] Offic/outpt E&m Estab Mod-hi 2 [facility], [address] [address], [place], [address], [place] tel:[phone] [facility] GI Symptoms or Concerns (chief complaint) GastroparesisChr onic constipationHear tburnEssential (primary) hypertension 6 Abbey Ayala. [address] [facility], [facility] [address], [facility] [place], [address] , [place]. tel:[phone] Referring Provider: Referral Self, USE FOR SELF REFERRALS. Offic/outpt E&m Estab Mod-hi 2 [facility], [address] [address], [place], [id number], [place] tel:[phone] [facility] GI Symptoms or Concerns (chief complaint) Irritable Colon 5 Jaylen Nicole. [address] [facility] [address] [address], [place], [place], [address] , [place]. tel:[phone] Referring Provider: Referral Self, USE FOR SELF REFERRALS. Offic/outpt E&m Estab Low-mod [facility], [address] [address], [place], [address], [place] tel:[phone] [facility] GI Symptoms or Concerns (chief complaint) Additional Narrative (chief complaint) GastroparesisDie tary Surveil/counselE lev Bl Pres W/o Hypertn 4 Clement Marvin. [address] [facility], [place], [place], [address] , [place]. tel:[phone] Referring Provider: Referral Self, USE FOR SELF REFERRALS. Offic/outpt E&m Estab Low-mod [facility], [address] [address], [place], [address], [place] tel:[phone] [facility] Abd Pain Generalized Jul- 4 Clement Marvin. [address] [facility], [place], [address] , [place]. [phone] Referring Provider: Arlin Ayala, [address] [place], [address]. tel:[phone] Offic/outpt E&m Estab Low-mod [facility], [address] [address], [place], [id number], [place] tel:[phone] [facility] Dyspepsia/acid Peptic DiseaseConstipat ion Unspecified 4 Ethan Ramirez. [address] [facility], [place], [place], [address] , [place]. tel:[phone] Referring Provider: Arlin Ayala, [address] [facility], [place], [address]. tel:[phone] Offic/outpt E&m New Mod-hi [facility], [address] [address], [place], [id number], [place] tel:[phone] [facility] Dyspepsia/acid Peptic Disease 4 Clement Marvin. [address] [facility], [place], [place], [address] , [place]. tel:[phone] Referring Provider: Arlin Ayala, [address] [place], [address]. tel:[phone] Family History Family Member Type Diagnosis Age [...] bi-directional interface ; Source: Other Registry Novel [id number], all formulations administered Note: [employer] bi-direct ional interface ; Source: Other Registry [...] influenza virus vaccine, unspecified formulation administered Note: [employer] bi-di rectional interface ; Source: Other Registry influenza virus vaccine, unspecified formulation administered Note: [employer] bi-di rectional interface ; Source: Other Registry Payers Payer name Insurance type Covered libertarian ID Authoriza tion(s) [employer] [id number] Social History Type Description Quantity Date Captured [...] an underlying history of gastroparesis made in [place] many years ago, with an associated chronic [...] an underlying diagnosis of gastroparesis made in [place] many years ago. She has a chronically [...] as a diagnosis of gastroparesis made in [place] many years ago. She has a chronically [...] history of gastroparesis that was diagnosed in [place] a number of years ago. However, she [...] We will proceed with upper endoscopy at [facility] to include possible dilation and esophageal biopsies. [...] with her primary physician Dr. López in [place]. Related to Irritable Colon 1.) I would [...]
[2024-11-02] VITALS (18 sets, daily range): BP systolic 139–249; BP diastolic 73–119; PULSE 63–97; RESP 18–32; TEMP 36.9–38; O2SAT 85–99; BMI 22.5
--- NOTE | 2024-11-02 11:48 | CRLHL7_ITS ---
For Patients: As a result of the Century Cures Act, medical imaging exams and procedure reports are released immediately into your electronic medical record. You may view this report before your referring provider. If you have questions, please contact your health care provider. INDICATION: Garbled speech. COMPARISON: 09/03/2024 TECHNIQUE: CT of the brain / head without intravenous contrast. Multiplanar axial, coronal, and sagittal reformats were reconstructed. FINDINGS: There is significant patient motion artifact. Patient was not able to stay still to repeat the exam. From the vertex to the level of the superior lateral ventricles is relatively well seen and appears normal. There is not any large intracranial hemorrhage. There is not any midline shift or hydrocephalus. IMPRESSION: Essentially nondiagnostic head CT due to significant motion artifact. No large intracranial hemorrhage, mass effect or hydrocephalus seen. Please note that all CT scans at this facility use dose modulation, iterative reconstruction, and/or weight-based dosing when appropriate to reduce radiation dose to as low as reasonably achievable. Dictated by Meche Sanabria MD @ 11/02/2024 12:10:36 PM (Electronically Signed)
--- OUTSIDE RECORDS SUMMARY | 2024-11-02 11:48 | XMS_ITS | Clinical Summary ---
Author Organization [facility] Address [address] [facility] , [address] [place] [address] Phone Care Team Providers Care Lockstitch Zipper Setter Name Role Phone [facility] Unavailable Unava ilable Conditions or Problems Problem Name Problem Code Onset Date Status Entry Date Provider Comment Standard Description Annotate Hand weakness, right 055253055 (SNOMED CT) Active Simon Esquivel MD Weakness of hand Tingling, hand 320746772 (SNOMED CT) Active Simon Esquivel MD Tingling [...] Procedures Code Procedure Name Date Entry Date CPT-47350 Nerve Conduction 5-6 studies CPT-40761 EMG with NCS (5+ muscles) - 1 limb 05/18 Vital Signs No information available. Immunizations No information available. Advance Directives No information available.
--- OUTSIDE RECORDS SUMMARY | 2024-11-02 11:48 | XMS_ITS | Encounter Summary ---
Author Organization [place] Address [address] [facility] 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 Gender Identity Not on file Sexual Orientation [...] dited Result - Final Performing Organization Address [facility] de Phone Number GENAROEZE [...] dited Result - Final Performing Organization Address [facility] Co de Phone Number JARRODE PFT [...] dited Result - Final Performing Organization Address City/[facility]/ZIP Co de Phone Number [facility] PFT NON-INTERFACED [...] on filedocumented in this encounter Care Teams Geomagnetician Relationship Specialty Start Date End Date Loren Beyer MD [facility] [address] [place] [address] PCP - General Family Practice 11/15/17 Teresa Chiu, RN Registered Nurse Cardiology 07/15/23 01/17/24 Meenu Denis DO [address] [place] [address] Assigned Heart and Vascular Provider 07/29/23 documented as of this encounter
--- OUTSIDE RECORDS SUMMARY | 2024-11-02 11:49 | XMS_ITS | Clinical Summary ---
Author Organization [facility] [facility] & [facility] Address [address] [place] [address] Care Team Providers Care Steel Spar Operator Name Role Phone Loren Beyer MD [...] 01/30/2018 Atorvastatin Lisinopril 01/05/2008 Periorbital rash Calcitonin ([place]) Nsaids (Non-Steroidal Anti-Inflammatory Drug) Aspirin Contraindication (for [...] 1 tablet (0.1 mg) in PM Active multivitamins-forensic examiner als-lutein (Multivitamin 50 Plus) tab tablet [...] mg sublingual tabletIndications:C oronary artery disease involving [place] coronary artery of [place] heart with unstable angina pectoris (HC) Place [...] w/ staged PCI later on 01/04/2023 d/t [facility] Coronary artery disease invo lving [place] coronary artery of [place] heart with unstable angina pectoris 01/04/2023 Overview [...] on file 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 Gender Identity Not on file Sexual Orientation [...] for age 65+ Completed 2014, 11/28/2009, 11/16/2007 Hepatitis B series for 19+ Aged Out N o longer eligible based on patient's age to complete this topic Procedures Procedure Name Priority Date/Time Associated Diagnosis Comments SCAN-BONE DENSITOMETRY DEXA 02/20/2015 12:00 AM CDT from Last 3 Months or Most Recently Relevant to Health Maintenance Results * SCAN-BONE DENSITOMETRY DEXA (02/20/2015 12:00 AM CDT) Anatomical Region Laterality Modality Other us Scanner OTHER Final Result from Last 3 Months or Most Recently Relevant to Health Maintenance Insurance [employer] MR PB ONLY [employer] HB MEDICARE PART B HB ONLY MEDICARE [...] Preferences, Provider to review later Care Teams Steel Spar Operator Relationship Specialty Start Date End Date Loren Beyer MD [address] [place] [address] PCP - General Family Practice 10/20/16
--- OUTSIDE RECORDS SUMMARY | 2024-11-02 11:49 | XMS_ITS | Encounter Summary ---
Author Organization [place] Address [address] [facility] 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 & [address] [address] PCP - General Family Practice 11/15/17 Meenu Denis DO [address] [place] [address] Assigned Heart and Vascular Provider 07/29/23 documented as of this encounter
--- OUTSIDE RECORDS SUMMARY | 2024-11-02 11:49 | XMS_ITS | Encounter Summary ---
Author Organization [place] Address [address] 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 Gender Identity Not on file Sexual Orientation [...] - Final Performing Organization Address [facility] Co de Phone Number CITLALY [...] - Final Performing Organization Address [facility] Co de Phone Number CITLALY [...] BLOOD ORDERABLES E dited Result - Final CITLAYL PFT NON-INTERFACED (ONBASE SCANS) * (ABNORMAL) Ferritin [...] on filedocumented in this encounter Care Teams Elementary School Director Relationship Specialty Start Date End Date Loren Beyer MD [facility] [address] [place] [address] PCP - General Family Practice 11/15/17 Teresa Chiu, RN Registered Nurse Cardiology 07/15/23 01/17/24 Meenu Denis DO [address] [place] [address] Assigned Heart and Vascular Provider 07/29/23 documented as of this encounter
--- OUTSIDE RECORDS SUMMARY | 2024-11-02 11:49 | XMS_ITS | Encounter Summary ---
Author Organization [place] Address [address] 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
--- OUTSIDE RECORDS SUMMARY | 2024-11-02 11:49 | XMS_ITS | Clinical Summary ---
Author Organization [place] [facility] [place] [address] Care Team Providers Care Steam Powerplant Supervisor Name Role Phone Loren Beyer MD Primary Care Provider + Meenu Denis DO Unavailable [phone] Allergies Active Allergy Reactions Criticality Noted Date [...] sodium chloride (OCEAN) 0.65 % nasal spray [place] 1 spray in nostril daily as needed [...] 50 MG tabletIndication s:Coronary artery disease involving [place] coronary artery of [place] heart without angina pectoris,Benign essential hypertension,Mariana st [...] in an abandoned building, in an overnight half-way, or couch-surfing.) Yes 01/12/2024 Are you worried [...] on file 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 Gender Identity Not on file Sexual [...] HF ACTION PLAN 1936 MICROALBUMIN 1936 DTAP/TDAP/TD VACCINE (1 - Tdap) 1961 ZOSTER VACCINE (1 of 2) 1986 FALL RISK ASSESSMENT 2001 MEDICARE ANNUAL WELLNESS VISIT 2001 RSV VACCINE (1 - 1-dose 75+ series) 10/10/2011 COVID-19 VACCINE ( season) 2024 03/17/2023, 03/23/2022, 03/19/2021, Additional history exists LIPID 01/25/2024 01/24/2023 A1C 02/28/2024 11/28/2023, 09/05/2023 PHQ-2 (once per calendar year) 2024 01/23/2024, 02/25/2023 BMP 07/13/2024 01/13/2024, 12/15, 11/28/2023, Additional history exists ALT 11/27/2024 11/28/2023, 08/15, 01/24/2023, Additional history exists CBC 01/12/2025 01/13/2024, 12/15, 11/28/2023, Additional history exists INFLUENZA VACCINE (Season Ended) 2025 02/18/2023, 03/03/2022, 02/27/2021, Additional history exists PNEUMOCOCCAL VACCINE 50+ YEARS Completed 06/16/2017, 09/05/2014, 02/08/2007, Additional history exists TSH W/FREE T4 REFLEX Completed 01/12/2024 HPV VACCINE Aged Out No longer eligi ble based on patient's age to complete this topic MENINGITIS VACCINE Aged Out No longer eligible based on patient's age to complete this topic Medical Devices Implanted Type Area Diver Pumper Device Identifier Shelf Expiration Date Model / Serial / Lot Glenosphere 25mm Mini Baseplate Implanted:Qty: 1 on 01/30/2013 by Jc Farr MD at [facility] Right: Shoulder 11/12/2022 [id number] / / [id number] Humeral Bearing Standard 44-36mm Implanted:Qty: 1 on 01/30/2013 by Jc Farr MD at [facility] Right: Shoulder 10/12/2017 [id number] / / [id number] Implanted:Qty: 1 on 01/30/2013 by Jc Farr MD at [facility] Right: Shoulder 10/12/2022 [id number] / / [id number] 3.5 Hex Fixed Locking Screw [id number] Implanted:Qty: 1 on 01/30/2013 by Jc Farr MD at [facility] Right: Shoulder 12/12/2022 [id number] / / [id number] Fixed Hex Locking Screw Implanted:Qty: 1 on 01/30/2013 by Jc Farr MD at [facility] Right: Shoulder 12/12/2022 [id number] / / [id number] Hex Fixed Locking Screw Implanted:Qty: 1 on 01/30/2013 by Jc Farr MD at [facility] Right: Shoulder 12/12/2022 [id number] / / [id number] Fixed Locking Screw Implanted:Qty: 1 on 01/30/2013 by Jc Farr MD at [facility] Right: Shoulder 12/12/2022 [id number] / / [id number] Glenosphere 36mm Curve/Standard Implanted:Qty: 1 on 01/30/2013 by Jc Farr MD at [facility] Right: Shoulder 12/12/2022 [id number] / / [id number] 9x83mm Shoulder Stem Implanted:Qty: 1 on 01/30/2013 by Jc Farr MD at [facility] Right: Shoulder 10/12/2022 [id number] / / [id number] Humeral Tray 44mm Standard Implanted:Qty: 1 on 01/30/2013 by Jc Farr MD at [facility] Right: Shoulder 12/12/2022 [id number] / / [id number] Procedures Procedure Name Priority Date/Time Associated Diagnosis [...] 6:15 AM CDT [facility] Comment:eGFR calculated us2020 CKD-EPI equation. Calcium 8.9 8.8 - 10.4 [...] BLOOD ORDERABLES Final Res ult [facility] [address] Lab (1st floor, no room number) [place] [address] * (ABNORMAL) CBC with platelets (01/13/2024 5:39 [...] - BLOOD ORDERABLES Final Res ult LABORATORY [facility] [address] Lab (1st floor, no room number) [place] [address] * TSH with free T4 reflex (01/12/2024 5:26 AM CDT) Pathologist [facility] TSH 2.47 0.30 - 4.20 uIU/mL 01/12/2024 10:06 AM CDT LABORATORY Blood BLOOD SPECIMEN / Unknown Venipuncture / Unknown 01/12/2024 5:26 AM CDT 01/12/2024 5:31 AM CDT Jenise Bailey MD LAB - BLOOD ORDERABLES Fi nal Result LABORATORY [facility] [address] Lab (1st floor, no room number) [place] [address] * Hepatic function panel (11/28/2023 9:30 AM [...] BLOOD ORDERABLES E dited Result - Final GENAROEZE PFT NON-INTERFACED (ONBASE SCANS) [...] dited Result - Final Performing Organization Address City/[facility]/ZIP Co de Phone Number CITLALY PFT NON-INTERFACED [...] BLOOD ORDERABLES Edited R esult - Final GENAROEZE PFT NON-INTERFACED (ONBASE SCANS) from Last 3 Months or Most Recently Relevant to Health Maintenance Insurance [employer] Member Subscriber Plan / Payer (Ef fective 2022-Present) Name:Fawad Unger Relation to Subscriber:Self Name:Fishs EddyFawad Payer ID:[id number] (NAIC) Type:[facility] Address: [address] [place] [address] MEDICARE [place] MEDICARE Advance Directives For more information, please contact: [phone] * No CPR- Do NOT Intubate (Latest Code Status on File) Date Activated Date Inactivated Comments 01/12/2024 6:51 AM 01/13/2024 5:55 PM NO basic or advanced life-sustaining interventions are performed Question Answer Comments Code status determined by: Discussion with patie nt/ legal decision maker * DNR/DNI Date Activated Date Inactivated Comments 01/30/2013 12:12 PM 02/02/2013 12:40 PM Care Teams Steam Powerplant Supervisor Relationship Specialty Start Date End Date Loren Beyer MD [facility] [address] [place] [address] PCP - General Family Practice 11/15/17 Meenu Denis DO [address] [place] [address] Assigned Heart and Vascular Provider 07/29/23
--- OUTSIDE RECORDS SUMMARY | 2024-11-02 11:49 | XMS_ITS | Encounter Summary ---
Author Organization [place] [facility] [address] [facility] [place] [address] Care Team Providers Care Carpenter Refrigerator Name Role Phone Loren Beyer MD Primary Care Provider + Brian Abreu MD Unavailable Sakina Osborne APRN EMPLOYMENT AGENCY MANAGER Unavailable [phone] Teresa Chiu RN Unavailable Unavaila Meenu Alves DO Unavailable [phone] Encounter Details Date Type Department Care Team (Late st Contact Info) Description 01/24/2023 External Order Results [facility] [address] [place] [address] Outside, Provider Social History Tobacco Use Types Packs/Day Years Used Date Smoking Tobacco: Never Smokeless Tobacco: Never Alcohol Use Standard Drinks/Week Comments No 0 (1 standard drink = 0.6 oz pur e alcohol) Comments No Sex and Gender Information Value Date Recorded Sex Assigned at Not on file 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 Gender Identity Not on file Sexual Orientation [...] Outside LAB - BLOOD ORDERABLES Edited R Factonomy - CueThink Performing Organization Address City/[facility]/ZIP Co de Phone Number GENAROEZE PFT NON-INTERFACED [...] Outside LAB - BLOOD ORDERABLES Edited R Factonomy - Final GENAROEZE PFT NON-INTERFACED (ONBASE SCANS) [...] on filedocumented in this encounter Care Teams Carpenter Refrigerator Relationship Specialty Start Date End Date Loren Beyer MD [facility] & [address] [address] PCP - General Family Practice 11/15/17 rBian Abreu MD [address] [place] [address] [place] [id number] Assigned Heart and Vascular Provider 02/26/23 05/06/23 Sakina Osborne APRN EMPLOYMENT AGENCY MANAGER [address] [place] [address] Assigned Heart and Vascular Provider 05/07/23 07/28/23 Teresa Chiu, RN Registered Nurse Cardiology 07/15/23 01/17/24 Meenu Denis DO [address] [place] [id number] Assigned Heart and Vascular Provider 07/29/23 documented as of this encounter
[2024-11-02] MEDS: diazePAM 5 MG/ML inj 2.5 MG IV ×2 (11:58→12:10)
--- NOTE | 2024-11-02 12:01 | ED.GENADULT ---
HPI - General Adult General Chief complaint: Neuro Symptoms/Altered Deficit Stated complaint: CVA Time Seen by Provider: 11/02/24 11:48 History of Present Illness HPI narrative: 89-year-old presenting to emergency department via EMS with concern of stroke. About an hour prior to arrival suddenly began complaining of inability to see. Speaking strangely and increasingly agitated exacerbating then her speech per what her reported to EMS. She arrives saying something is wrong with me something is wrong with me. I meet her and EMS in the back hart[place] going to CT. She is not able to cooperate with any request for exam nor is she answering any questions including whether not she can see. Clarifying information with her . Timing is still approximately the same where she had been up after having prepared herself breakfast. Was complaining that she was having trouble seeing to find her tablet and some other things. It is not clear that there was full loss of vision. But ?I can'T see that?. Further elaboration is that she had been having similar complaint intermittently over the last couple of days. As became more agitated this morning also was having more trouble speaking. This has also been going on for months as she becomes more anxious or agitated per her . Related Data Home Medications ?Medication ?Instructions ?Recorded ?Confirmed sodium chloride 0.65 % nasal spray 1 spray intranasal BID PRN 01/28/22 11/02/24 aerosol (Saline Nasal) simethicone 125 mg capsule (Gas 125 mg PO BID@1230,1830 04/30/22 11/02/24 Relief (simethicone)) polyethylene glycol 3350 17 17 g PO DAILY PRN 01/27/23 11/02/24 gram/dose oral powder (Miralax) calcium 600 mg (as 1 cap PO DAILY 07/07/23 11/02/24 carbonate)-vitamin D3 12.5 mcg (500 unit) capsule (Calcium with Vit D3) lactase 9,000 unit chewable tablet 9,000 unit PO DAILY PRN 07/07/23 11/02/24 (Lactaid Fast Act) multivitamin (Daily Multi-Vitamin 1 tab PO DAILY@12 07/07/23 11/02/24 tablet) betamethasone, augmented 0.05 % 1 applic topical DAILY PRN 03/08/24 11/02/24 lotion ketoconazole 2 % shampoo 1 applic topical DIRECTED PRN 03/08/24 11/02/24 triamcinolone acetonide 0.1 % 1 applic topical BID-TID PRN 03/08/24 11/02/24 topical cream calcium carbonate 500 mg PO BID@1230,1830 07/18/24 11/02/24 carboxymethylcellulose sodium 1 % 1 drp ophthalmic (eye) BID PRN 07/18/24 11/02/24 eye drops (Artificial Tears (carboxymethylcellulose)) chlorpheniramine maleate 4 mg 2 mg PO DAILY PRN 07/18/24 11/02/24 tablet (Allergy-Time) ciclesonide 160 mcg/actuation 2 inh inhalation BID@0630,18307/18/24 11/02/24 aerosol inhaler (Alvesco) ezetimibe 10 mg tablet 10 mg PO DAILY@12 07/18/24 11/02/24 losartan 50 mg tablet 50 mg PO BIDWM 07/18/24 11/02/24 omeprazole 20 mg capsule,delayed 20 mg PO DAILY@1730 GERD 07/18/24 11/02/24 release Previous Rx's ?Medication ?Instructions ?Recorded ondansetron 4 mg disintegrating 4 mg PO BID-TID PRN nausea and 09/30/23 tablet vomiting #30 tabs levothyroxine 25 mcg tablet 25 mcg PO DAILY #90 tabs 03/08/24 prednisone 5 mg tablet 5 mg PO QAM #90 tabs 03/08/24 sertraline 50 mg tablet 50 mg PO QPM #90 tabs 03/08/24 lorazepam 0.5 mg tablet 0.25 mg (1/2 x 0.5 mg) PO BID PRN 06/10/24 anxiety #30 tabs clonidine HCl 0.1 mg tablet 0.1 mg PO BIDWM hypertension #180 07/31/24 tabs nitroglycerin 0.4 mg sublingual 0.4 mg sublingual Q5-15M PRN chest 08/14/24 tablet pain #25 tabs albuterol sulfate 90 mcg/actuation 2 puff inhalation BID@0630,1830 09/04/24 aerosol inhaler shortness of breath or wheezing #8.5 grams Allergies Allergy/AdvReac Type Severity Reaction Status Date / Time codeine Allergy Severe Hallucinati Verified 10/02/24 13:26 ng hydrocodone Allergy Severe confusion/h Verified 10/02/24 13:26 allucinatin g oxycodone Allergy Severe Confusion Verified 10/02/24 13:26 penicillin V Allergy Severe Anaphylaxis Verified 10/02/24 13:26 rosuvastatin Allergy Severe Swelling Verified 10/02/24 13:26 of Lip/Tongue/Throat amlodipine Allergy Intermediate Flushing Verified 10/02/24 13:26 bisacodyl (From Dulcolax Allergy Intermediate rash/scalp, Verified 10/02/24 13:26 (bisacodyl)) redness to eyelid hydromorphone Allergy Intermediate mental Verified 10/02/24 13:26 changes lisinopril Allergy Intermediate itchy Verified 10/02/24 13:26 metformin Allergy Intermediate nausea, Verified 10/02/24 13:26 diarrhea aspirin Allergy Mild Rash Verified 10/02/24 13:26 atorvastatin Allergy Mild Rash Verified 10/02/24 13:26 calcitonin Allergy Mild Rash Verified 10/02/24 13:26 loratadine Allergy Mild Rash Verified 10/02/24 13:26 alendronate sodium Allergy Unknown Verified 10/02/24 13:26 lidocaine Allergy Unknown Verified 10/02/24 13:26 NSAIDS (Non-Steroidal Allergy Unknown Verified 10/02/24 13:26 Anti-Inflamma petrolatum,white (From Allergy Unknown Verified 10/02/24 13:26 Petroleum Jelly) lorazepam Allergy severe Verified 10/02/24 13:26 hallucinations montelukast Allergy Hallucinati Verified 10/02/24 13:26 ng peas Allergy Anaphylaxis Verified 10/02/24 13:26 Sulfa (Sulfonamide Allergy Anaphylaxis Verified 10/02/24 13:26 Antibiotics) azithromycin AdvReac Intermediate Nausea Verified 10/02/24 13:26 mometasone furoate (From AdvReac Headache Verified 10/02/24 13:26 Asmanex Twisthaler) Review of Systems Status of ROS: Reports: unobtainable due to mental status PFSH PFS Medical History COVID ?U07.1 - COVID-19 (ICD-10) Syncope ?R55 - Syncope and collapse (ICD-10) Acute anterior epistaxis ?R04.0 - Epistaxis (ICD-10) Depression with anxiety ?F41.8 - Other specified anxiety disorders (ICD-10) History of epistaxis ?Z87.898 - Personal history of other specified conditions (ICD-10) Cubital tunnel syndrome on right ?G56.21 - Lesion of ulnar nerve, right upper limb (ICD-10) Osteoarthritis of carpometacarpal (CMC) joint of left thumb ?M18.12 - Unilateral primary osteoarthritis of first carpometacarpal joint, left hand (ICD-10) Greater trochanteric bursitis of both hips ?M70.61 - Trochanteric bursitis, right hip (ICD-10) ?M70.62 - Trochanteric bursitis, left hip (ICD-10) ST elevation (STEMI) myocardial infarction (01/04/23) ?I21.3 - ST elevation (STEMI) myocardial infarction of unspecified site (ICD-10) Fracture of right ulnar styloid ?S52.611A - Displaced fracture of right ulna styloid process, initial encounter for closed fracture (ICD-10) Personal history of gallstones ?Z87.19 - Personal history of other diseases of the digestive system (ICD-10) Iron deficiency anemia ?D50.9 - Iron deficiency anemia, unspecified (ICD-10) Functional dyspepsia ?K30 - Functional dyspepsia (ICD-10) Diverticulitis large intestine w/o perforation or abscess w/o bleeding ?K57.32 - Diverticulitis of large intestine without perforation or abscess without bleeding (ICD-10) Chronic nausea ?R11.0 - Nausea (ICD-10) Thyroid nodule ?E04.1 - Nontoxic single thyroid nodule (ICD-10) Chronic vertigo ?R42 - Dizziness and giddiness (ICD-10) Benign gastric polyp ?K31.7 - Polyp of stomach and duodenum (ICD-10) Diabetes mellitus ?E11.9 - Type 2 diabetes mellitus without complications (ICD-10) Epistaxis ?R04.0 - Epistaxis (ICD-10) Temporal headache ?R51.9 - Headache, unspecified (ICD-10) Throat clearing ?R09.89 - Other specified symptoms and signs involving the circulatory and respiratory systems (ICD-10) Tetanus vaccine side effect ?T50.A95A - Adverse effect of other bacterial vaccines, initial encounter (ICD-10) Statin intolerance ?Z78.9 - Other specified health status (ICD-10) Perforated nasal septum ?J34.89 - Other specified disorders of nose and nasal sinuses (ICD-10) History of chronic eczema ?Z87.2 - Personal history of diseases of the skin and subcutaneous tissue (ICD-10) Environmental allergies ?Z91.09 - Other allergy status, other than to drugs and biological substances (ICD-10) Aspirin allergy ?Z88.8 - Allergy status to other drugs, medicaments and biological substances (ICD-10) Hyponatremia ?E87.1 - Hypo-osmolality and hyponatremia (ICD-10) Health care directive on file ?Z78.9 - Other specified health status (ICD-10) Surgical History History of carpal tunnel surgery of right wrist (05/19/23) ?Z98.890 - Other specified postprocedural states (ICD-10) H/O wisdom tooth extraction ?K08.409 - Partial loss of teeth, unspecified cause, unspecified class (ICD-10) History of heart artery stent (01/04/23) ?Z95.5 - Presence of coronary angioplasty implant and graft (ICD-10) History of esophageal dilatation (2017) ?Z98.890 - Other specified postprocedural states (ICD-10) History of tonsillectomy and adenoidectomy ?Z90.89 - Acquired absence of other organs (ICD-10) History of dilation and curettage ?Z98.890 - Other specified postprocedural states (ICD-10) 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 Social History Narrative: - 2 adult daughters, little/no contact, closest to foster son KAM[place], independent living [facility] [place], [facility] Lifetime non-smoker does not drink alcohol Physical activity: housework, laundry cooking, stretch she has 15 minutes 3 times a week What is your current living situation?: I presently have a place to live Problems where you live: no known problems Problems where you live details: no known problems In the past 12 months, utilities in danger of being shut off: no In past 12 months, lack of transportation kept you from medical appts, meetings, work, or getting things needed for daily living: no In the past 12 mos, have been you worried that your food would run out before you had money to buy more?: never true In the past 12 mos, the food you bought just didn't last and you didn't have money to buy more?: never true Highest level of school completed/degree received: Bachelor's degree Smoking Status: Never smoker Do you use any of these nicotine containing products: None Second hand tobacco smoke exposure: No How often do you have a drink containing alcohol: never How often do you have six or more drinks on one occasion: Never AUDIT-C Alcohol total score: 0 Non-prescribed substance use: denies use Caffeine: No How often does anyone, including family, friends and others, physically hurt you: never How often does anyone, including family, friends and others, insult or talk down to you: never How often does anyone, including family, friends and others, threaten you with harm: never How often does anyone, including family, friends and others, scream or curse at you: never service: No Exam Narrative: Exam Narrative: Exam from initial time in CT and then repeated in [facility] 1 Appears quite anxious, upset. Not cooperating with exams but not fighting it. Stroke Scale is not possible. Head looks atraumatic. Pupils are equal and 3 mm. Unsure about of afferency as scrunching up her eyes very tightly however individually pupils are appropriately reactive to light. Extraocular movements are intact. She is moving all extremities. She is well-perfused. No lower extremity edema. Lungs appear clear. Heart in elevated rate regular rhythm. Abdomen is soft and seems diffusely mildly tender though intermittent. Seems more like surprising? No peritoneal signs. Const: Vital Signs, click to edit/add: Vital Signs - 24 hr 11/02/24 11:52 11/02/24 11:55 11/02/24 11:55 Temperature 98.4 F Pulse Rate 81 Pulse Rate [Pulse Oximeter] 97 Respiratory Rate 24 20 Blood Pressure 249/100 H Blood Pressure [Le ft Upper Arm] 249/100 H Pulse Oximetry 95 94 97 Oxygen Delivery Me thod Room Air Oxygen Flow Rate 11/02/24 12:10 11/02/24 12:10 11/02/24 12:30 Temperature Pulse Rate 82 75 Pulse Rate [Pulse Oximeter] Respiratory Rate 28 H 32 H Blood Pressure 218/119 H 236/96 H Blood Pressure [Le ft Upper Arm] Pulse Oximetry 85 L 95 94 Oxygen Delivery Me thod Nasal Cannula Oxygen Flow Rate 3 11/02/24 12:41 11/02/24 12:45 11/02/24 13:15 Temperature Pulse Rate 72 69 Pulse Rate [Pulse Oximeter] Respiratory Rate 28 H Blood Pressure Blood Pressure [Le ft Upper Arm] Pulse Oximetry 95 94 Oxygen Delivery Me thod Oxygen Flow Rate 11/02/24 13:40 11/02/24 13:45 Temperature Pulse Rate 63 Pulse Rate [Pulse Oximeter] Respiratory Rate Blood Pressure Blood Pressure [Le ft Upper Arm] 220/85 H Pulse Oximetry 97 Oxygen Delivery Me thod Oxygen Flow Rate Documenting provider has reviewed patient's vital signs: yes Course Vital Signs Vital signs: Initial Vital Signs Pulse Oximetry 95 11/02/24 11:52 Vital Signs Pulse Oximetry 95 11/02/24 11:52 Temperature 100.2 F H 11/02/24 20:48 Pulse Rate 87 11/02/24 19:40 Respiratory Rate 20 11/02/24 19:40 Blood Pressure 139/73 11/02/24 19:40 Pulse Oximetry 94 11/02/24 19:40 Oxygen Delivery Method Room Air 11/02/24 19:40 Oxygen Flow Rate 3 11/02/24 12:10 Medications Administered Medications: Generic Name Dose Route Start Last Admin Trade Name Freq PRN Reason Stop Dose Admin Acetaminophen 650 mg 11/02/24 16:02 11/02/24 19:54 Acetaminophen 325 Mg Tablet PO 650 mg Q4H PRN Administration Albuterol 2 puff 11/02/24 18:30 11/02/24 19:04 Albuterol Inhaler IH 2 puff BID@0630,1830 MONA Administration Clonidine HCl 0.05 mg 11/02/24 18:00 11/02/24 18:03 Clonidine Hcl 0.1 Mg Tablet PO 0.05 mg BIDWM MONA Administration Losartan Potassium 50 mg 11/02/24 18:25 11/02/24 18:50 Losartan Potassium 50 Mg Tablet PO 50 mg BIDWM MONA Administration Ciclesonide [Alvesco 0 inhalation 11/02/24 18:30 11/02/24 19:04 ] 160 Mcg/Actuation IH 2 inhalation Hfa Aerosol Inhaler BID@0630,1830 MONA Administration Omeprazole 20 mg 11/02/24 17:30 11/02/24 17:22 Omeprazole [address] PO 20 mg DAILY@1730 MONA Administration Ondansetron HCl 4 mg 11/02/24 16:02 11/02/24 21:11 Ondansetron Odt 4 Mg Tab PO 4 mg TID PRN Administration Nausea And Vomiting Sertraline HCl 50 mg 11/02/24 18:00 11/02/24 18:05 Sertraline 50 Mg Tablet PO 50 mg QPM MONA Administration Sodium Chloride 5 ml 11/02/24 21:00 11/02/24 20:49 Sodium Chloride 0.9 % (Flush) 10 Ml Syringe IVF 5 ml BID MONA Administration Discontinued Medications Generic Name Dose Route Start Last Admin Trade Name Freq PRN Reason Stop Dose Admin Clopidogrel Bisulfate 75 mg 11/02/24 17:49 11/02/24 18:15 Clopidogrel 75 Mg Tablet PO 11/02/24 17:50 Not Given ONCE ONE Diazepam 2.5 mg 11/02/24 11:49 11/02/24 11:58 Diazepam 5 Mg/Ml Inj IV 11/02/24 11:50 2.5 mg ONCE ONE Administration Diazepam 2.5 mg 11/02/24 12:07 11/02/24 12:10 Diazepam 5 Mg/Ml Inj IV 11/02/24 12:08 2.5 mg ONCE ONE Administration Diphenhydramine HCl 12.5 mg 11/02/24 12:18 11/02/24 12:22 Diphenhydramine 50 Mg/Ml Inj IVP 11/02/24 12:19 12.5 mg ONCE ONE Administration Sodium Chloride 500 mls @ 500 mls/hr 11/02/24 11:51 11/02/24 17:01 0.9 % Sodium Chloride 500 Ml IV 11/02/24 12:50 Infused .Q1H ONE Infusion Medical Decision Making MDM Narrative Medical decision making narrative: This might well be CVA but certainly compounded by anxiety. Anticipating difficulty with imaging but need to do basic head CT quickly and will reassess at this point. Mouth seems quite dry on reassessment. This might be affecting somewhat of her speech. She is not answering any questions though is speaking legibly Discussed this case directly with Stroke Neuro on-call. CTA of head and neck once calmed recommended. Non contrasted head CT images independently reviewed by me are complicated by significant motion artifact. No asymmetry or large bleed evident. TECHNIQUE: CT of the brain / head without intravenous contrast. Multiplanar axial, coronal, and sagittal reformats were reconstructed. FINDINGS: There is significant patient motion artifact. Patient was not able to stay still to repeat the exam. From the vertex to the level of the superior lateral ventricles is relatively well seen and appears normal. There is not any large intracranial hemorrhage. There is not any midline shift or hydrocephalus. IMPRESSION: Essentially nondiagnostic head CT due to significant motion artifact. No large intracranial hemorrhage, mass effect or hydrocephalus seen. Please note that all CT scans at this facility use dose modulation, iterative reconstruction, and/or weight-based dosing when appropriate to reduce radiation dose to as low as reasonably achievable. Dictated by Meche Sanabria MD @ 11/02/2024 12:10:36 PM ----- ADDENDUM ----- Case discussed with Dr. Wang at 12:12 p.m. on 11/02/2024. Dictated by Meche Sanabria MD @ Nov 02 2024 12:23PM (Electronically Signed) For Patients: As a result of the 21st Century Cures Act, medical imaging exams and procedure reports are released immediately into your electronic medical record. You may view this report before your referring provider. If you have questions, please contact your health care provider. INDICATION: Garbled speech. COMPARISON: 09/03/2024 TECHNIQUE: CT of the brain / head without intravenous contrast. Multiplanar axial, coronal, and sagittal reformats were reconstructed. FINDINGS: There is significant patient motion artifact. Patient was not able to stay still to repeat the exam. From the vertex to the level of the superior lateral ventricles is relatively well seen and appears normal. There is not any large intracranial hemorrhage. There is not any midline shift or hydrocephalus. IMPRESSION: Essentially nondiagnostic head CT due to significant motion artifact. No large intracranial hemorrhage, mass effect or hydrocephalus seen. Please note that all CT scans at this facility use dose modulation, iterative reconstruction, and/or weight-based dosing when appropriate to reduce radiation dose to as low as reasonably achievable. Dictated by Meche Sanabria MD @ 11/02/2024 12:10:36 PM As delineated later in HPI able to clarify that unclear duration of symptoms over the last days to months intermittently. Would not be a thrombolytic candidate per my repeat conversation with Stroke Neuro. Later reassessment following a couple dosings of Valium continues to itch her scalp. Still restless mildly agitated. Trying to get out of bed and feels like she continues to have to urinate after already urinating and stooling in bed. Speaking clearly Do not think this is clearly a stroke though puzzling intermittent loss of vision. She has been regarding us during cares as if she is seeing but does not answer questions directly. Historically very sensitive to medications and responds with physical symptoms with flares of anxiety as well. Blood pressure remains elevated but is also intolerant with pulling and increased agitation in response to elevated pressures a blood pressure cuff. Attempted manual blood pressure check is not much improved. This is quite bothersome to her as well. Had urinated and defecated in the bed. Subsequent straight cath for urine does result in 675 mL of urine. Certainly this has been contributing to agitation. Slow clearing possibly complicated by Valium at this point. I do not think any further imaging will be possible at this time. Have requested admission for further monitoring imaging as able. One anticipate potential MRI of the brain. Medical Records Medical records reviewed: Yes I reviewed the patient's medical records Lab Data Labs: Lab Results 11/02/24 11/02/24 11/02/24 Range/Units 11:55 12:01 13:25 WBC 8.14 (4.50-11.00) K/uL RBC 5.23 H (4.00-5.20) m/uL Hgb 12.3 (12.0-16.0) gm/dL Hct 40.8 (33.0-51.0) % MCV 78 L (80-100) fL MCH 24 L (26-34) pg MCHC 30 L (32-36) gm/dL RDW Coeff of Eric 16.0 H (11.5-15.5) % Plt Count 208 (140-440) K/uL Neut % (Auto) 53.1 (42.0-72.0) % Lymph % (Auto) 30.2 (20-44) % [place] % (Auto) 9.2 (0.0-11.0) % Eos % (Auto) 6.5 (0.0-7.0) % Baso % (Auto) 0.9 (0.0-3.0) % Neut # (Auto) 4.32 (1.7-7.0) K/uL Lymph # (Auto) 2.46 (0.90-2.90) K/uL [place] # (Auto) 0.70 (0.00-0.90) K/UL Eos # (Auto) 0.53 H (0.00-0.50) K/uL Baso # (Auto) 0.07 (0.00-0.30) K/uL Abs Immat Gran (auto) 0.01 (0.00-0.30) K/uL Imm/Tot Granulo (auto) 0.1 % INR 0.88 L (0.91-1.10) APTT 26 (23-33) Seconds Sodium 136 (135-149) mmol/L Potassium 3.4 L (3.6-5.1) mmol/L Chloride 99 (96-114) mmol/L Carbon Dioxide 27 (20-32) mmol/L Anion Gap 10 (7-15) mEq/L BUN 26 (7-30) mg/dL Creatinine 0.9 (0.5-1.5) mg/dL Estimated GFR 61 ml/min Glucose 91 (60-115) mg/dL Calcium 9.9 (8.4-10.6) mg/dL Troponin I < 0.01 (0.01-0.04) ng/mL Urine Color Yellow (Yellow) Urine Appearance Clear (Clear) Urine pH 8.5 (5.0-8.5) Ur Specific [place] 1.015 (1.000-1.030) Urine Protein Negative (Negative) Urine Glucose (UA) Negative (Negative) Urine Ketones Negative (Negative) Urine Blood Negative (Negative) Urine Nitrite Negative (Negative) Urine Bilirubin Negative (Negative) Urine Urobilinogen 0.2 (0.2-1.0) Ur Leukocyte Esterase Negative (Negative) Urine RBC 0-2 (0-2) Urine WBC 0-2 (0-5) Ur Squamous Epith Cells None (None-Few) Urine Bacteria None (None) Urine Opiates Screen Negative (Negative) Ur Oxycodone Screen Negative (Negative) Urine Methadone Screen Negative (Negative) Ur Barbiturates Screen Negative (Negative) U Tricyclic Antidepress Negative (Negative) Ur Phencyclidine Scrn Negative (Negative) Ur Amphetamines Screen Negative (Negative) U Methamphetamines Scrn Negative (Negative) U Benzodiazepines Scrn Negative (Negative) Urine Cocaine Screen Negative (Negative) U Marijuana (THC) Screen Negative (Negative) Ur Drug Screen Comment See Note POC Creatinine 1.0 (0.6-1.3) mg/dl POC Troponin I 0.01 (0.01-0.04) ng/ml ECG Data Attestation: I personally reviewed and interpreted this ECG as follows: (Normal sinus rhythm without evidence of acute ischemia. Rate of 67.) Critical Care Time Critical Care Time Critical Care Time: Yes Attestation: The patient required my highest level preparedness to intervene emergently and I personally spent this critical care time directly and personally managing the patient. This critical care time included: Obtaining a history; Examining the patient; Pulse oximetry; Ordering and reviewing of studies; Arranging urgent treatment with development of a management plan; Evaluation of patients response to treatment; Frequent reassessment discussions with other providers. This critical care time was performed to assess and manage the high probability of imminent life-threatening deterioration that could result in multiorgan failure. It was exclusive of separate billable procedures and treating other patients and teaching time. Total Critical Care Time in Minutes: 70 Discharge Plan Discharge Clinical Impression: AMS (altered mental status), Agitation, Urinary retention, Alteration in vision, Anxiety Patient Disposition: Admitted As Observation Condition: Stable
--- OUTSIDE RECORDS SUMMARY | 2024-11-02 12:06 | XMS_ITS | Clinical Summary ---
Author Organization [facility] Address [address] , [address] [place] [address] Phone Care Team Providers Care Crocheter Hand Name Role Phone [facility] Unavailable Unava ilable Conditions or Problems Problem Name Problem Code Onset Date Status Entry Date Provider Comment Standard Description Annotate Hand weakness, right 689113800 (SNOMED CT) Active Simon Esquivel MD Weakness of hand Tingling, hand 461336973 (SNOMED CT) Active Simon Esquivel MD Tingling [...] Procedures Code Procedure Name Date Entry Date CPT-06054 Nerve Conduction 5-6 studies CPT-45157 EMG with NCS (5+ muscles) - 1 limb 05/18 Vital Signs No information available. Immunizations No information available. Advance Directives No information available.
[2024-11-02 12:12] LABS: Basophils Absolute Auto 0.07 K/uL (0.00-0.30); Basophils Percent Auto 0.9 % (0.0-3.0); Eosinophils Absolute Auto 0.53 K/uL (0.00-0.50); Eosinophils Percent Auto 6.5 % (0.0-7.0); Hematocrit 40.8 % (33.0-51.0); Hemoglobin* 12.3 gm/dL (12.0-16.0); Immature Granulocytes Abs Auto 0.01 K/uL (0.00-0.30); Immature Granulocytes Pct Auto 0.1 %; Lymphocytes Absolute Auto 2.46 K/uL (0.90-2.90); Lymphocytes Percent Auto 30.2 % (20-44); Mean Corpuscular HGB Conc 30 gm/dL (32-36); Mean Corpuscular Hemoglobin 24 pg (26-34); Mean Corpuscular Volume 78 fL (80-100); Monocytes Percent Auto 9.2 % (0.0-11.0); Neutrophils Absolute Auto 4.32 K/uL (1.7-7.0); Neutrophils Percent Auto 53.1 % (42.0-72.0); Platelet Count* 208 K/uL (140-440); Red Blood Count 5.23 m/uL (4.00-5.20); White Blood Count* 8.14 K/uL (4.50-11.00)
[2024-11-02 12:21] LABS: Slide Review Reflex No
[2024-11-02] MEDS: diphenhydrAMINE 50 MG/ML inj 12.5 MG IVP (12:22)
[2024-11-02 12:30] LABS: Chloride* 99 mmol/L (96-114); Sodium* 136 mmol/L (135-149)
[2024-11-02 12:31] LABS: Potassium* 3.4 mmol/L (3.6-5.1)
[2024-11-02 12:33] LABS: Blood Urea Nitrogen* 26 mg/dL (7-30); Creatinine* 0.9 mg/dL (0.5-1.5); Estimated Glomerular Filt Rate 61 ml/min
[2024-11-02 12:34] LABS: Anion Gap 10 mEq/L (7-15); Calcium* 9.9 mg/dL (8.4-10.6); Carbon Dioxide* 27 mmol/L (20-32); Glucose* 91 mg/dL (60-115); INR 0.88 (0.91-1.10); Prothrombin Time 12.7 Seconds
[2024-11-02 12:35] LABS: Partial Thromboplastin Time* 26 Seconds (23-33)
[2024-11-02 12:52] LABS: Troponin I* < 0.01 ng/mL (0.01-0.04)
[2024-11-02 13:31] LABS: Appearance Urine Clear (Clear); Bilirubin Urine Negative (Negative); Blood Urine Negative (Negative); Color Urine Yellow (Yellow); Glucose Urine Negative (Negative); Ketones Urine Negative (Negative); Leukocyte Esterase Urine Negative (Negative); Nitrite Urine Negative (Negative); Protein Urine Negative (Negative); Specific Gravity Urine 1.015 (1.000-1.030); Urobilinogen Urine 0.2 (0.2-1.0); pH Urine 8.5 (5.0-8.5)
[2024-11-02 13:42] LABS: Amphetamine Screen Urine Negative (Negative); Barbiturate Screen Urine Negative (Negative); Benzodiazepines Screen Urine Negative (Negative); Cannabinoid Screen Urine Negative (Negative); Cocaine Screen Urine Negative (Negative); Methadone Screen Urine Negative (Negative); Methamphetamines Screen Urine Negative (Negative); Opiate Screen Urine Negative (Negative); Oxycodone Screen Urine Negative (Negative); Phencyclidine Screen Urine Negative (Negative); Tricyclic Antidepressant Urine Negative (Negative)
[2024-11-02 13:55] LABS: RBC Urine 0-2 (0-2); WBC Urine 0-2 (0-5)
[2024-11-02 13:56] LABS: Troponin, Point-of-Care* 0.01 ng/ml (0.01-0.04)
[2024-11-02] MEDS: 0.9 % SODIUM CHLORIDE 500 ML 500 ML IV (14:09)
[2024-11-02] MEDS: OMEPRAZOLE 20 MG CAPSULE DR PO (17:22)
[2024-11-02] MEDS: cloNIDine HCL 0.1 MG TABLET 0.05 MG PO (18:03)
[2024-11-02] MEDS: SERTRALINE 50 MG TABLET PO (18:05)
[2024-11-02] MEDS: LOSARTAN POTASSIUM 50 MG TABLET PO (18:50)
[2024-11-02] MEDS: ALBUTEROL INHALER 2 PUFF IH (19:04)
--- NOTE | 2024-11-02 19:47 | PC.NURSE ---
Pt arrived to the unit at 1414, accompanied by spouse, Amarjit. Morales placed, patent, and draining. BP reported to Jennifer FALK. Otherwise, VSS. Pt refused Plavix this evening reporting that it makes her bleed. Pt tolerating reg diet/fluids well. AxOx4, anxious, and particular regarding POC and tasks. Interior Design Consultant used therapeutic communication when in the room to bring anxiousness levels down. Pt appears resting in bed with call light in reach.
[2024-11-02] MEDS: ACETAMINOPHEN 325 MG TABLET 650 MG PO (19:54)
[2024-11-02] MEDS: SODIUM CHLORIDE 0.9 % (FLUSH) 10 ML SYRINGE 5 ML IVF (20:49)
[2024-11-02] MEDS: ONDANSETRON ODT 4 MG TAB PO (21:11)
--- NOTE | 2024-11-02 21:13 | PC.NURSE ---
Clinical Operations Specialist updated MD Rodriguez at 2108 regarding improvement of pt's B/P though new fever of 100.4 and fever of 100.2 remains after PRN Tylenol given. No new orders at this time.
[2024-11-03 03:00] VITALS: BP 139/66; PULSE 65; RESP 18; TEMP 37; O2SAT 91
[2024-11-03] MEDS: ACETAMINOPHEN 325 MG TABLET 650 MG PO (03:04)
[2024-11-03] MEDS: ONDANSETRON ODT 4 MG TAB PO (05:13)
--- NOTE | 2024-11-03 06:02 | PC.NURSE ---
End of shift note [id number]: Pt noted to be A&Ox4 though does have intermittent forgetfulness noted, repeatedly asking questions about her Morales catheter and needing frequent reminders of catheter being in place due to urinary retention noted. Blood pressures stable throughout the shift. PERRLA. Pt transferring/ambulating with assist of 1 using FWW and gait belt. Morales catheter in place with staff encouraging po fluids. Pt noted to be febrile with temp of 100.4 at start of shift. MD was updated after giving PRN Tylenol. She has been on RA throughout the shift and has been afebrile overnight. PRN Tylenol given for c/o generalized pain though pt only accepted 1 tab with last PRN dose despite education provided. Pt continent of bowel last evening. Pt denied any vision changes this shift when asked and has had equal strength to extremities bilaterally. Pt c/o nausea and was given PRN Zofran x [address] shift[address] Tele in place with NSR noted. Bed alarm on and call light within reach. ?
[2024-11-03] MEDS: LEVOTHYROXINE 25 MCG TABLET PO (06:32)
[2024-11-03 06:37] LABS: Basophils Absolute Auto 0.06 K/uL (0.00-0.30); Basophils Percent Auto 0.6 % (0.0-3.0); Eosinophils Percent Auto 7.2 % (0.0-7.0); Hematocrit 37.3 % (33.0-51.0); Hemoglobin* 11.5 gm/dL (12.0-16.0); Immature Granulocytes Abs Auto 0.03 K/uL (0.00-0.30); Immature Granulocytes Pct Auto 0.3 %; Lymphocytes Percent Auto 17.4 % (20-44); Mean Corpuscular HGB Conc 31 gm/dL (32-36); Mean Corpuscular Hemoglobin 24 pg (26-34); Mean Corpuscular Volume 78 fL (80-100); Monocytes Percent Auto 10.8 % (0.0-11.0); Neutrophils Absolute Auto 6.15 K/uL (1.7-7.0); Neutrophils Percent Auto 63.7 % (42.0-72.0); Platelet Count* 203 K/uL (140-440); RDW Coefficient of Variation % 16.1 % (11.5-15.5); White Blood Count* 9.66 K/uL (4.50-11.00)
[2024-11-03 06:48] LABS: Chloride* 98 mmol/L (96-114); Potassium* 3.2 mmol/L (3.6-5.1); Sodium* 132 mmol/L (135-149)
[2024-11-03 06:49] LABS: Slide Review Reflex No
[2024-11-03 06:51] LABS: Anion Gap 6 mEq/L (7-15); Blood Urea Nitrogen* 26 mg/dL (7-30); Calcium* 8.7 mg/dL (8.4-10.6); Carbon Dioxide* 28 mmol/L (20-32); Creatinine* 1.1 mg/dL (0.5-1.5); Est. Creatinine Clearance* 25.39; Estimated Glomerular Filt Rate 48 ml/min; Glucose* 97 mg/dL (60-115)
[2024-11-03 07:29] VITALS: PULSE 61
[2024-11-03 08:11] VITALS: BP 166/73; PULSE 63; RESP 18; TEMP 36.6; O2SAT 90
[2024-11-03] MEDS: LOSARTAN POTASSIUM 50 MG TABLET PO (09:33)
[2024-11-03] MEDS: cloNIDine HCL 0.1 MG TABLET 0.05 MG PO (09:33)
[2024-11-03] MEDS: predniSONE 5 MG TABLET PO (09:33)
[2024-11-03] MEDS: SODIUM CHLORIDE 0.9 % (FLUSH) 10 ML SYRINGE 5 ML IVF (09:33)
[2024-11-03] MEDS: ALBUTEROL INHALER 2 PUFF IH (09:58)
[2024-11-03 11:00] VITALS: BP 144/82; PULSE 75; RESP 16; TEMP 36.8; O2SAT 94
[2024-11-03] MEDS: EZETIMIBE 10 MG TABLET PO (12:05)
--- NOTE | 2024-11-03 14:52 | P.DS_ITS ---
DS: Providers Provider Time Seen by Provider: 11:53 Date Seen: 11/03/24 Date of admission: 11/02/24 14:08 Primary care physician: Loren Beyer MD Admitting Clinician: Madan Rodriguez MD Consults: 11/02/24 16:02 Consult to Occupational Therapy [CONS] Routine Comment: Reason(s) for OT Consult:: Evaluate and Treat Any Restrictions?:: No Restrictions Consult to Physical Therapy [CONS] Routine Comment: Reason(s) for PT Consult:: Evaluate and Treat Any Restrictions?:: No Restrictions Attending Physician on discharge: Emperatriz Sue MD Date of Discharge: 11/03/24 DS: Diagnosis Discharge Diagnosis (1) Alteration in vision: Status: Acute Problem details: - difficult to assess due to patient not cooperating initially. This appears to have resolved clinically, although patient acute is vague about if it is completely resolved. Differential includes anxiety and stroke, which I have recommended an MRI to rule out. Patient refuses MRI and refuses to take any anti-platelet, aspirin or Plavix, if this were discovered to be a stroke. She declines any changes to her current medications. She does not want any further studies. She desires discharge home. (2) AMS (altered mental status): Status: Acute Problem details: Resolved (3) Anxiety: Status: Acute Problem details: Acute on chronic (4) Agitation: Status: Acute Problem details: Possibly secondary to urinary retention (5) Urinary retention: Status: Acute Problem details: - Based on a mild oil did plus amount obtained through the catheterization, she was holding a total of 1900 mL in her bladder. Is likely contributed to agitation and anxiety. Patient denies any urinary symptoms. Strongly desires that we remove Morales, despite discussion about the recommendation that she keep this in and follow-up with Urology. This is therefore removed per the patient's wishes, I have asked her to follow-up with urology as an outpatient. DS: Summary Hospital Course Hospital Course: This is an 89-year-old female with an extensive past medical history who presented through the emergency department yesterday by EMS for concern of stroke. Her main complaint was a change in vision, she complained of inability to see, but today tells me that it was more than just that her vision was blurry. She and her were also concerned about her abnormal speech and she became increasingly agitated in the emergency department. She was unable to cooperate for the head CT without contrast and it was essentially nondiagnostic, although able to say that there were no large abnormalities or hemorrhage. In the emergency department she voided 1200 mL and then had a subsequent straight cath of 675 mL of urine. It was thought that this may have contributed to her agitation and anxiety. Due to her agitation and inability to hold still, subsequent scans were not attempted last night. This morning she is feeling better, but mostly talks about her past medical conditions and it is difficult to tell if her vision has completely cleared or not. She told me that she adamantly refused any further imaging because she has had enough studies already in her life. She also refused to take any aspirin or Plavix due to history of nose bleeds and allergy to aspirin. She and I spoke for over 30 minutes. Her , son, and [id number] came in later and wanted to discuss the situation and the recommendations. We again spoke about her symptoms and my recommendation that she get an MRI today. We spoke for 40 minutes. After much discussion, she eventually agreed to the MRI, but when I was leaving the room to order it, her said to come back because he thought that she made that decision with reservation. She then told me that she was confused and was not sure if she wanted the MRI anymore. She also told me that if she got an MRI and there was a stroke, she would not take any new medications. She also wanted the Morales catheter out. She said she has not had any urinary symptoms, and does not believe that she had urinary retention. She wanted some time to think about whether not to get the MRI, so I left the room for her and her family to talk. Later that they approached the nursing station and told them that she does not want the MRI or any other imaging and she wants the Morales catheter out and to go home. Time Spent with Patient Time attestation: Total time spent providing and/or coordinating discharge services: Today I spent 90 minutes seeing and discharging the patient, reviewing Expanse and EPIC notes/diagnostics/labs, discussing the care plan with our care team that includes social work, PT/OT, pharmacy, RT, halfway and documenting my impressions and plan in the medical record. Quality: Stroke Reason for not prescribing antithrombotic at DC: Patient refused Exam Narrative: Exam Narrative: General: No acute distress. Awake, alert, oriented x3. Speech is clear and she has no word-finding. No pallor. No jaundice. Oropharynx: Clear. Mucous membranes moist. Cardiovascular: Regular rate and rhythm. No murmurs, gallops, or rubs. Respiratory: Clear to auscultation bilaterally. No wheezes or crackles. Abdomen: Bowel sounds present. Soft, nondistended, nontender. Extremities: No lower extremity edema. Neuro: There are no focal deficits. Romberg is negative. Gait is within normal limits. Cranial nerves 2-12 are intact. Extraocular movements are full. No nystagmus. No facial asymmetry. Tongue is midline. Peripheral vision and vision are grossly intact. Strength is 5/5 in all 4 extremities. Light touch sensation is intact in face body and extremities. Coordination is intact in upper and lower extremities. Const: Vital Signs, click to edit/add: Vital Signs - 24 hr 11/02/24 16:04 11/02/24 16:10 11/02/24 16:10 Temperature 98.7 F Pulse Rate 66 Pulse Rate [Bilate ral Radial] Pulse Rate [Left P ulse Oximeter] Respiratory Rate 20 Blood Pressure [Ri ght Arm] 235/102 H Pulse Oximetry 99 Oxygen Delivery Me thod Room Air Room Air 11/02/24 18:06 11/02/24 19:40 11/02/24 19:54 Temperature 100.4 F H 100.4 F H Pulse Rate Pulse Rate [Bilate ral Radial] 87 Pulse Rate [Left P ulse Oximeter] Respiratory Rate 20 Blood Pressure [Ri ght Arm] 214/99 H 139/73 Pulse Oximetry 94 Oxygen Delivery Me thod Room Air 11/02/24 20:48 11/02/24 22:50 11/02/24 22:53 Temperature 100.2 F H 98.9 F Pulse Rate 69 Pulse Rate [Bilate ral Radial] Pulse Rate [Left P ulse Oximeter] 72 Respiratory Rate 22 Blood Pressure [Ri ght Arm] 161/73 H Pulse Oximetry 92 Oxygen Delivery Me thod Room Air 11/02/24 23:00 11/03/24 03:00 11/03/24 07:29 Temperature 98.6 F Pulse Rate 61 Pulse Rate [Bilate ral Radial] Pulse Rate [Left P ulse Oximeter] 65 65 Respiratory Rate 18 18 Blood Pressure [Ri ght Arm] 139/66 Pulse Oximetry 91 Oxygen Delivery Me thod Room Air 11/03/24 08:11 11/03/24 11:00 Temperature 98 F 98.3 F Pulse Rate Pulse Rate [Bilate ral Radial] Pulse Rate [Left P ulse Oximeter] 63 75 Respiratory Rate 18 16 Blood Pressure [Ri ght Arm] 166/73 H 144/82 H Pulse Oximetry 90 94 Oxygen Delivery Me thod Room Air Room Air DS: Data Data Completed and Pending Completed studies during hospitalization: 11/02/2024 EKG: Normal sinus rhythm, 67 beats per minute, left axis deviation, septal infarct, age undetermined. Ordering Physician: Saul Burton M.D. Date of Service: 11/02/24 Procedure(s): CT head/brain wo con Accession Number(s): [id number] cc: Loren Beyer M.D.; Saul Burton M.D.~ ADDENDUM INDICATION: Garbled speech. COMPARISON: 09/03/2024 TECHNIQUE: CT of the brain / head without intravenous contrast. Multiplanar axial, coronal, and sagittal reformats were reconstructed. FINDINGS: There is significant patient motion artifact. Patient was not able to stay still to repeat the exam. From the vertex to the level of the superior lateral ventricles is relatively well seen and appears normal. There is not any large intracranial hemorrhage. There is not any midline shift or hydrocephalus. IMPRESSION: Essentially nondiagnostic head CT due to significant motion artifact. No large intracranial hemorrhage, mass effect or hydrocephalus seen. Please note that all CT scans at this facility use dose modulation, iterative reconstruction, and/or weight-based dosing when appropriate to reduce radiation dose to as low as reasonably achievable. Dictated by Meche Sanabria MD @ 11/02/2024 12:10:36 PM ----- ADDENDUM ----- Case discussed with Dr. Wang at 12:12 p.m. on 11/02/2024. Dictated by Meche Sanabria MD @ Nov 02 2024 12:23PM (Electronically Signed) For Patients: As a result of the Cures Act, medical imaging exams and procedure reports are released immediately into your electronic medical record. You may view this report before your referring provider. If you have questions, please contact your health care provider. INDICATION: Garbled speech. COMPARISON: 09/03/2024 TECHNIQUE: CT of the brain / head without intravenous contrast. Multiplanar axial, coronal, and sagittal reformats were reconstructed. FINDINGS: There is significant patient motion artifact. Patient was not able to stay still to repeat the exam. From the vertex to the level of the superior lateral ventricles is relatively well seen and appears normal. There is not any large intracranial hemorrhage. There is not any midline shift or hydrocephalus. IMPRESSION: Essentially nondiagnostic head CT due to significant motion artifact. No large intracranial hemorrhage, mass effect or hydrocephalus seen. Please note that all CT scans at this facility use dose modulation, iterative reconstruction, and/or weight-based dosing when appropriate to reduce radiation dose to as low as reasonably achievable. Dictated by Meche Sanabria MD @ 11/02/2024 12:10:36 PM (Electronically Signed) Labs on day of discharge: Labs from last 24 hours 11/03/24 05:42 WBC 9.66 RBC 4.80 Hgb 11.5 L Hct 37.3 MCV 78 L MCH 24 L MCHC 31 L RDW Coeff of Eric 16.1 H Plt Count 203 Neut % (Auto) 63.7 Lymph % (Auto) 17.4 L Gibson % (Auto) 10.8 Eos % (Auto) 7.2 H Baso % (Auto) 0.6 Neut # (Auto) 6.15 Lymph # (Auto) 1.70 Gibson # (Auto) 1.00 H Eos # (Auto) 0.70 H Baso # (Auto) 0.06 Abs Immat Gran (auto) 0.03 Imm/Tot Granulo (auto) 0.3 Sodium 132 L Potassium 3.2 L Chloride 98 Carbon Dioxide 28 Anion Gap 6 L BUN 26 Creatinine 1.1 Estimated Creat Clear 25.39 Estimated GFR 48 Glucose 97 Calcium 8.7 Discharge Plan Discharge Disposition: Home, Self-Care Date of Admission: 11/02/24 14:08 Attending Provider on Discharge: Emperatriz Sue Primary Care Provider: Loren Beyer Condition: Stable Anticipated Discharge Date/Time: 11/03/24 15:00 Discharge Medications: Continued simethicone [Gas Relief (simethicone)] 125 mg capsule 125 mg PO BID@1230,1830 Rx Instructions: AFTER LUNCH AND DINNER polyethylene glycol 3350 [Miralax] 17 gram/dose powder 17 g PO DAILY PRN calcium carbonate-vitamin D3 [Calcium 600 with Vitamin D3] 600 mg-12.5 mcg (500 unit) capsule 1 cap PO DAILY Saline Nasal 0.65 % aerosol,spray 1 spray intranasal BID PRN multivitamin [Daily Multi-Vitamin] Tablet 1 tab PO DAILY@12 Lactaid Fast Act 9,000 unit tablet,chewable 9,000 unit PO DAILY PRN Rx Instructions: administer with dairy as needed triamcinolone acetonide 0.1 % cream 1 applic topical BID-TID PRN ketoconazole 2 % shampoo 1 applic topical DIRECTED PRN betamethasone, augmented 0.05 % lotion 1 applic topical DAILY PRN sertraline 50 mg tablet 50 mg PO QPM Qty: 90 3RF prednisone 5 mg tablet 5 mg PO QAM Qty: 90 3RF levothyroxine 25 mcg tablet 25 mcg PO DAILY Qty: 90 4RF calcium carbonate 500 mg calcium (1,250 mg) tablet,chewable 500 mg PO BID@1230,1830 Rx Instructions: AFTER LUNCH AND DINNER Artificial Tears (cmc) 1 % drops 1 drp ophthalmic (eye) BID PRN losartan 50 mg tablet 50 mg PO BIDWM omeprazole 20 mg capsule,delayed release(DR/EC) 20 mg PO DAILY@1730 Rx Instructions: BEFORE EVENING MEAL ezetimibe 10 mg tablet 10 mg PO DAILY@12 Alvesco 160 mcg/actuation HFA aerosol inhaler 2 inh inhalation BID@0630,1830 chlorpheniramine maleate [Allergy-Time] 4 mg tablet 2 mg PO DAILY PRN ondansetron 4 mg tablet,disintegrating 4 mg PO BID-TID PRN (Reason: nausea and vomiting) Qty: 30 4RF lorazepam 0.5 mg tablet 0.25 mg PO BID PRN (Reason: anxiety) Qty: 30 0RF clonidine HCl 0.1 mg tablet 0.1 mg PO BIDWM Qty: 180 1RF nitroglycerin 0.4 mg tablet, sublingual 0.4 mg sublingual Q5-15M PRN (Reason: chest pain) Qty: 25 0RF albuterol sulfate 90 mcg/actuation HFA aerosol inhaler 2 puff INHALATION BID@0630,1830 Qty: 8.5 0RF Discharge Orders: Discharge Order (Routine); Ordered 06/21/25 Ordered By: Emperatriz Sue Patient Education: Altered Mental Status (ED) Additional Instructions: Urology 1-2 weeks Activity Level: No Restrictions Discharge Diet: Regular Follow Up Appointments: Loren Beyer MD [Primary Care Provider, Family Practice] - 11/08/24 2:30 pm Referral Note: [facility] for follow [facility] with PCP [facility]: [facility] Info Instructions
[2024-11-03 15:00] VITALS: BP 176/80; PULSE 78; RESP 16; TEMP 36.5; O2SAT 96
--- NOTE | 2024-11-03 15:12 | P.IMHP_ITS ---
Assessment and Plan Assessment and plan (1) Alteration in vision: Problem comment: Subjective report of complete vision loss this morning. Patient unable to fully cooperate with attempts to do objective testing but no definite visual deficit is identified. Symptoms by history are fluctuating. Attempts to test for stroke as a cause of this were unsuccessful because patient was unable to get a CT scan without motion artifact and refused MRI. Also refusing clopidogrel and reporting an allergy to aspirin. Status: Acute (2) Urinary retention: Problem comment: Spontaneously voided 1200 mL followed by postvoid residual of 700 mL in the emergency department removed by straight cath. Placement of Morales catheter again found 700 mL of urine residual. Patient finding the catheter uncomfortable. Status: Acute (3) Agitation: Problem comment: Likely related to multiple issues including anxiety, urinary retention, recent episode of vision loss Status: Acute (4) Stress: Problem comment: At least in part related to anticipated move to assisted living Status: Acute (5) Depression with anxiety: Problem comment: Uses sertraline and p.r.n. Ativan Status: Chronic (6) Anxiety: Problem comment: Acute on chronic. In reviewing past medical records this appears to be playing an important role in her recurrent clinic and emergency room visits. Status: Acute Plan She is admitted to the hospital for ongoing evaluation of possible stroke, vision loss and urinary retention. Total Time Spent Total Time Spent: Total time spent on admission is 90 minutes in reviewing past medical records, coordination of care, discussion with patient and ongoing evaluation management of possible stroke and urinary retention. Hospitalist- H&P: HPI History of Present Illness Date Seen: 11/04/24 Chief complaint: CVA Narrative: Ally Unger is a 89 year old female admitted through the emergency department after a spell of blindness at home this morning. Patient is seen with her . She reports that she was doing well when she woke up this morning. Around 10:00 a.m. she reported to him that she could not see. She reports complete vision loss in both eyes. She was reporting to her that there is something wrong with me. He called the eye clinic who referred her to the emergency department. She denied any other focal neurologic symptoms including weakness, difficulty talking, difficulty walking. I asked her if she was able to walk when she could not see. She could not explain to me how she was walking with her blindness. She tells me that her vision has returned. When I asked her if she could see me at the time I am visiting with her she could not tell me. She could open her eyes and look around. Eventually I was able to get her to show me that she could count fingers. She could not do any further visual acuity testing. Her reports that she has been under lot of stress lately. They are anticipating a moved to an assisted living facility in [facility] in the near future. She is quite stressed about this. Paperwork for that move arrived in the mail today. told the ER doctor that she has been intermittently complaining about vision problems over the last few days. When I was talking to her she was in obvious emotional distress but she could not tell me why. She was hyperventilating and moaning but could not tell me what was causing her distress. In the emergency department she was treated with a stroke protocol. Emergency head CT was obtained. CT was in adequate to identify stroke due to motion artifact. In the emergency department patient was not found to have any focal neurologic deficit though ongoing uncertainty about her vision remained. She was found to have urinary retention however. In the emergency department she voided spontaneously 1200 mL of urine. Following that she was found to have almost 700 mL of retained urine. Straight cath was placed to remove the remaining 700 mL of retained urine. On arrival to the floor a Morales catheter was placed and she again had about 700 mL of retained urine. She was unable to tell me if she was having any urinary symptoms, urgency, frequency, hesitancy, bladder fullness or bladder pain. She did tell me that the catheter was uncomfortable for her. Once the catheter was placed she did report ongoing urinary urgency. No previous history of bladder problems that she is aware of. Review of Systems Narrative: She specifically denies headache, cold, congestion, sore throat, fever, shortness of breath, chest pain, palpitations, abdominal pain, nausea, vomiting, diarrhea. She has not had any bleeding problems. She has not had lower extremity edema. She reports that she has no focal weakness and moves all her extremities well. She is fluent in her speech but her reports that earlier today she was able to talk but may be seemed a little confused. Medical Decision Making Medical Decision Making Has patient completed a Health Care Directive: Yes PFSH [facility] Medical History COVID ?U07.1 - COVID-19 (ICD-10) Syncope ?R55 - Syncope and collapse (ICD-10) Acute anterior epistaxis ?R04.0 - Epistaxis (ICD-10) Depression with anxiety ?F41.8 - Other specified anxiety disorders (ICD-10) History of epistaxis ?Z87.898 - Personal history of other specified conditions (ICD-10) Cubital tunnel syndrome on right ?G56.21 - Lesion of ulnar nerve, right upper limb (ICD-10) Osteoarthritis of carpometacarpal (CMC) joint of left thumb ?M18.12 - Unilateral primary osteoarthritis of first carpometacarpal joint, left hand (ICD-10) Greater trochanteric bursitis of both hips ?M70.61 - Trochanteric bursitis, right hip (ICD-10) ?M70.62 - Trochanteric bursitis, left hip (ICD-10) ST elevation (STEMI) myocardial infarction (01/04/23) ?I21.3 - ST elevation (STEMI) myocardial infarction of unspecified site (ICD- 10) Fracture of right ulnar styloid ?S52.611A - Displaced fracture of right ulna styloid process, initial encounter for closed fracture (ICD-10) Personal history of gallstones ?Z87.19 - Personal history of other diseases of the digestive system (ICD-10) Iron deficiency anemia ?D50.9 - Iron deficiency anemia, unspecified (ICD-10) Functional dyspepsia ?K30 - Functional dyspepsia (ICD-10) Diverticulitis large intestine w/o perforation or abscess w/o bleeding ?K57.32 - Diverticulitis of large intestine without perforation or abscess without bleeding (ICD-10) Chronic nausea ?R11.0 - Nausea (ICD-10) Thyroid nodule ?E04.1 - Nontoxic single thyroid nodule (ICD-10) Chronic vertigo ?R42 - Dizziness and giddiness (ICD-10) Benign gastric polyp ?K31.7 - Polyp of stomach and duodenum (ICD-10) Diabetes mellitus ?E11.9 - Type 2 diabetes mellitus without complications (ICD-10) Epistaxis ?R04.0 - Epistaxis (ICD-10) Temporal headache ?R51.9 - Headache, unspecified (ICD-10) Throat clearing ?R09.89 - Other specified symptoms and signs involving the circulatory and respiratory systems (ICD-10) Tetanus vaccine side effect ?T50.A95A - Adverse effect of other bacterial vaccines, initial encounter (ICD-10) Statin intolerance ?Z78.9 - Other specified health status (ICD-10) Perforated nasal septum ?J34.89 - Other specified disorders of nose and nasal sinuses (ICD-10) History of chronic eczema ?Z87.2 - Personal history of diseases of the skin and subcutaneous tissue (ICD-10) Environmental allergies ?Z91.09 - Other allergy status, other than to drugs and biological substances (ICD-10) Aspirin allergy ?Z88.8 - Allergy status to other drugs, medicaments and biological substances (ICD-10) Hyponatremia ?E87.1 - Hypo-osmolality and hyponatremia (ICD-10) Health care directive on file ?Z78.9 - Other specified health status (ICD-10) Surgical History History of carpal tunnel surgery of right wrist (05/19/23) ?Z98.890 - Other specified postprocedural states (ICD-10) H/O wisdom tooth extraction ?K08.409 - Partial loss of teeth, unspecified cause, unspecified class (ICD- 10) History of heart artery stent (01/04/23) ?Z95.5 - Presence of coronary angioplasty implant and graft (ICD-10) History of esophageal dilatation (2017) ?Z98.890 - Other specified postprocedural states (ICD-10) History of tonsillectomy and adenoidectomy ?Z90.89 - Acquired absence of other organs (ICD-10) History of dilation and curettage ?Z98.890 - Other specified postprocedural states (ICD-10) 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 Social History Narrative: - 2 adult daughters, little/no contact, closest to foster son [place], independent living [address] [place], [place] [address] Lifetime non-smoker does not drink alcohol Physical activity: housework, laundry cooking, stretch she has 15 minutes 3 times a week What is your current living situation?: I presently have a place to live Problems where you live: no known problems Problems where you live details: no known problems In the past 12 months, utilities in danger of being shut off: no In past 12 months, lack of transportation kept you from medical appts, meetings, work, or getting things needed for daily living: no In the past 12 mos, have been you worried that your food would run out before you had money to buy more?: never true In the past 12 mos, the food you bought just didn't last and you didn't have money to buy more?: never true Highest level of school completed/degree received: Bachelor's degree Smoking Status: Never smoker Do you use any of these nicotine containing products: None Second hand tobacco smoke exposure: No How often do you have a drink containing alcohol: never How often do you have six or more drinks on one occasion: Never AUDIT-C Alcohol total score: 0 Non-prescribed substance use: denies use Caffeine: No How often does anyone, including family, friends and others, physically hurt you : never How often does anyone, including family, friends and others, insult or talk down to you: never How often does anyone, including family, friends and others, threaten you with harm: never How often does anyone, including family, friends and others, scream or curse at you: never service: No Meds Home Medications and Allergies Home Medications ?Medication ?Instructions ?Recorded ?Confirmed ?Type sodium chloride 0.65 % nasal spray 1 spray intranasal BID PRN 01/28/22 11/02/24 History aerosol (Saline Nasal) simethicone 125 mg capsule (Gas 125 mg PO BID@1230,183 0 04/30/22 11/02/24 Histor y Relief (simethicone)) polyethylene glycol 3350 17 17 g PO DAILY PRN 01/27/23 11/02/24 History gram/dose oral powder (Miralax) calcium 600 mg (as 1 cap PO DAILY 07/07/2310/15 History carbonate)-vitamin D3 12.5 mcg (500 unit) capsule (Calcium with Vit D3) lactase 9,000 unit chewable tablet 9,000 unit PO DAILY PRN 07/07/23 11/02/24 History (Lactaid Fast Act) multivitamin (Daily Multi-Vitamin 1 tab PO DAILY@12 11/02/24 History tablet) ondansetron 4 mg disintegrating 4 mg PO BID-TID PRN na usea and 09/30/23 11/02/24 Rx tablet vomiting #30 tabs betamethasone, augmented 0.05 % 1 applic topical DAILY PRN 03/08/24 11/02/24 History lotion ketoconazole 2 % shampoo 1 applic topical DIRECTED PRN 03/08/24 11/02/24 History levothyroxine 25 mcg tablet 25 mcg PO DAILY #90 tabs 1 11/02/24 Rx prednisone 5 mg tablet 5 mg PO QAM #90 tabs 4 11/02/24 Rx sertraline 50 mg tablet 50 mg PO QPM #90 tabs 11/02/24 Rx triamcinolone acetonide 0.1 % 1 applic topical BID-TID PRN 03/08/24 11/02/24 History topical cream lorazepam 0.5 mg tablet 0.25 mg (1/2 x 0.5 mg) PO BI D PRN 06/10/24 11/02/24 Rx anxiety #30 tabs calcium carbonate 500 mg PO BID@1230,1830 0310/0711/02/24 History carboxymethylcellulose sodium 1 % 1 drp ophthalmic (ey e) BID PRN 07/18/24 11/02/24 History eye drops (Artificial Tears (carboxymethylcellulose)) chlorpheniramine maleate 4 mg 2 mg PO DAILY PRN 11/02/24 History tablet (Allergy-Time) ciclesonide 160 mcg/actuation 2 inh inhalation BID@063 0,1830 07/18/24 11/02/24 History aerosol inhaler (Alvesco) ezetimibe 10 mg tablet 10 mg PO DAILY@12 07/18/24 0 11/02/24 History losartan 50 mg tablet 50 mg PO BIDWM 07/18/2410/15 History omeprazole 20 mg capsule,delayed 20 mg PO DAILY@1730 G ERD 07/18/24 11/02/24 History release clonidine HCl 0.1 mg tablet 0.1 mg PO BIDWM hypertensi on #180 07/31/24 11/02/24 Rx tabs nitroglycerin 0.4 mg sublingual 0.4 mg sublingual Q5-1 5M PRN chest 08/14/24 11/02/24 Rx tablet pain #25 tabs albuterol sulfate 90 mcg/actuation 2 puff inhalation B ID@0630,3280 09/04/24 11/02/24 Rx aerosol inhaler shortness of breath or wheez ing #8.5 grams Home Medication Comments: Patient tells me that she manages her medications. She uses a pillbox. She is unable to tell me if she is taking p.r.n. medications, including lorazepam, and at what dose. When I read her list of medications to her she is unable to confirm most of the medications. Allergies Allergy/AdvReac Type Severity Reaction Status Date / Time codeine Allergy Severe Hallucinati Verified 10/02/24 13:26 ng hydrocodone Allergy Severe confusion/h Verified 10/02/24 13:26 allucinatin g oxycodone Allergy Severe Confusion Verified 10/02/24 13:26 penicillin V Allergy Severe Anaphylaxis Verified 10/02/24 13:26 rosuvastatin Allergy Severe Swelling Verified 10/02/24 13:26 of Lip/Tongue/Throat amlodipine Allergy Intermediate Flushing Verified 10/02/24 13:26 bisacodyl (From Dulcolax Allergy Intermediate rash/scalp, Verified 10/02/24 13:26 (bisacodyl)) redness to eyelid hydromorphone Allergy Intermediate mental Verified 10/02/24 13:26 changes lisinopril Allergy Intermediate itchy Verified 10/02/24 13:26 metformin Allergy Intermediate nausea, Verified 10/02/24 13:26 diarrhea aspirin Allergy Mild Rash Verified 10/02/24 13:26 atorvastatin Allergy Mild Rash Verified 10/02/24 13:26 calcitonin Allergy Mild Rash Verified 10/02/24 13:26 loratadine Allergy Mild Rash Verified 10/02/24 13:26 alendronate sodium Allergy Unknown Verified 10/02/24 13:26 lidocaine Allergy Unknown Verified 10/02/24 13:26 NSAIDS (Non-Steroidal Allergy Unknown Verified 10/02/24 13:26 Anti-Inflamma petrolatum,white (From Allergy Unknown Verified 10/02/24 13:26 Petroleum Jelly) lorazepam Allergy severe Verified 10/02/24 13:26 hallucinations montelukast Allergy Hallucinati Verified 10/02/24 13:26 ng peas Allergy Anaphylaxis Verified 10/02/24 13:26 Sulfa (Sulfonamide Allergy Anaphylaxis Verified 10/02/24 13:26 Antibiotics) azithromycin AdvReac Intermediate Nausea Verified 10/02/24 13:26 mometasone furoate (From AdvReac Headache Verified 10/02/24 13:26 Asmanex Twisthaler) Exam Narrative: Exam Narrative: She is alert and of appears very anxious. She appears in emotional distress. Intermittently she is crying out and frustration and intermittently hyperventilating and moaning. Speech is fluent. She is hard of hearing. She follows simple commands and answers simple questions if they are repeated. It is not clear whether this is because she is hard of hearing or very anxious. She has no facial asymmetry. Extraocular movements are full. Pupils are equal round and reactive to light. Visual paul are intact. Intact sensation in her face bilaterally. Intact strength in her face bilaterally. Tongue is midline. Oropharynx is unremarkable. Shoulder shrugs are normal. Neck is supple without mass or adenopathy. Respirations are clear to auscultation. Cardiovascular: S1, S2, regular rate and rhythm. Abdomen: Bowel sounds active. Abdomen is soft without tenderness or mass. External genitalia normal. Extremities appear normal with intact pulses and sensation. Warm to touch with good capillary refill. No rash. Neurologic examination of the upper extremities is normal with full strength in bilateral shoulder flexion and extension, elbow flexion and extension, wrist flexion and extension, mail distribution clerk strength and finger extension. Lower extremity neurologic examination is normal and symmetric with hip flexion, knee flexion and extension, ankle dorsiflexion and plantar flexion. She has very brisk withdrawal from Babinski testing causing her to become upset. Tphnam-ybmc-nnizpy is accurate without ataxia. Const: Vital Signs, click to edit/add: Vital Signs - 24 hr 11/02/24 16:04 11/02/24 16:10 11/02/24 16:10 Temperature 98.7 F Pulse Rate 66 Pulse Rate [Bilate ral Radial] Pulse Rate [Left P ulse Oximeter] Respiratory Rate 20 Blood Pressure [Ri ght Arm] 235/102 H Pulse Oximetry 99 Oxygen Delivery Me thod Room Air Room Air 11/02/24 18:06 11/02/24 19:40 11/02/24 19:54 Temperature 100.4 F H 100.4 F H Pulse Rate Pulse Rate [Bilate ral Radial] 87 Pulse Rate [Left P ulse Oximeter] Respiratory Rate 20 Blood Pressure [Ri ght Arm] 214/99 H 139/73 Pulse Oximetry 94 Oxygen Delivery Me thod Room Air 11/02/24 20:48 11/02/24 22:50 11/02/24 22:53 Temperature 100.2 F H 98.9 F Pulse Rate 69 Pulse Rate [Bilate ral Radial] Pulse Rate [Left P ulse Oximeter] 72 Respiratory Rate 22 Blood Pressure [Ri ght Arm] 161/73 H Pulse Oximetry 92 Oxygen Delivery Me thod Room Air 11/02/24 23:00 11/03/24 03:00 11/03/24 07:29 Temperature 98.6 F Pulse Rate 61 Pulse Rate [Bilate ral Radial] Pulse Rate [Left P ulse Oximeter] 65 65 Respiratory Rate 18 18 Blood Pressure [Ri ght Arm] 139/66 Pulse Oximetry 91 Oxygen Delivery Me thod Room Air 11/03/24 08:11 11/03/24 11:00 Temperature 98 F 98.3 F Pulse Rate Pulse Rate [Bilate ral Radial] Pulse Rate [Left P ulse Oximeter] 63 75 Respiratory Rate 18 16 Blood Pressure [Ri ght Arm] 166/73 H 144/82 H Pulse Oximetry 90 94 Oxygen Delivery Me thod Room Air Room Air Documenting provider has reviewed patient's vital signs: yes Hospitalist - H&P: Result Labs Labs: Short CBC 11/03/24 Range/Units 05:42 WBC 9.66 (4.50-11.00) K/uL Hgb 11.5 L (12.0-16.0) gm/dL Hct 37.3 (33.0-51.0) % Plt Count 203 (140-440) K/uL BMP 11/03/24 05:42 Sodium 132 L Potassium 3.2 L Chloride 98 Carbon Dioxide 28 BUN 26 Creatinine 1.1 Glucose 97 Calcium 8.7
--- NOTE | 2024-11-03 16:52 | PC.NURSE ---
Pt discharged @ 1644 via wheelchair, accompanied by family. Back to home. IV removed. Pt remains in place, patent, and draining. Education given to patient verbally with printed out education. Teach back demonstration used for emptying bag. Pt reported understanding. Pt in good condition. Discharge forms signed. Final room check complete.
== END 2024-11-03 16:44 | disposition home or self-care (01) ==
LOC: ED 13:50 → MEDSURG 14:09
PROVIDERS: Admitting Provider Family Medicine; Emergency Provider Family Medicine; PCP Family Medicine; Visit Provider Family Medicine
DX: R41.82 Altered mental status, unspecified (principal); H53.8 Other visual disturbances; R45.1 Restlessness and agitation; R47.89 Other speech disturbances; R33.9 Retention of urine, unspecified; F41.8 Other specified anxiety disorders; I25.10 Atherosclerotic heart disease of native coronary artery without angina pectoris; I10 Essential (primary) hypertension; E11.9 Type 2 diabetes mellitus without complications; K21.9 Gastro-esophageal reflux disease without esophagitis; Z95.5 Presence of coronary angioplasty implant and graft; E04.1 Nontoxic single thyroid nodule
CPT/HCPCS: 36415; 51701; 51798; 70450; 80048; 80306; 81001; 82565; 84484; 85025; 85610; 85730; 93005; 94761; 96361; 96374; 96375; 96376; 97162; 97165; 97530; 99284; 99291; A9270; G0378; J1200; J3360; J7030; J7512

== ENCOUNTER 2024-11-05 12:42 | Emergency (ER) | payer MEDICARE, OTHER, MEDICAID, SELFPAY ==
--- OUTSIDE RECORDS SUMMARY | 2024-11-05 12:47 | XMS_ITS | Encounter Summary ---
Author Organization [facility] Address [address] [facility] [place] [address] Care Team Providers Care Mill Work Name Role Phone Loren Beyer MD Primary Care Provider + Brian Abreu MD Unavailable Sakina Osborne APRN STEEL FABRICATING SUPERVISOR Unavailable [phone] Teresa Chiu RN Unavailable Unavaila Meenu Alves DO Unavailable [phone] Encounter Details Date Type Department Care Team (Late st Contact Info) Description 01/24/2023 External Order Results [facility] [address] [place] [address] Outside, Provider Social History Tobacco Use Types Packs/Day Years Used Date Smoking Tobacco: Never Smokeless Tobacco: Never Alcohol Use Standard Drinks/Week Comments No 0 (1 standard drink = 0.6 oz pur e alcohol) Comments No Sex and Gender Information Value Date Recorded Sex Assigned at Not on file 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 Gender Identity Not on file Sexual Orientation [...] Outside LAB - BLOOD ORDERABLES Edited R redealize - Angiodroid Performing Organization Address City/[facility]/ZIP Co de Phone Number GENAROEZE PFT NON-INTERFACED [...] Outside LAB - BLOOD ORDERABLES Edited R redealize - Final GENAROEZE PFT NON-INTERFACED (ONBASE SCANS) [...] on filedocumented in this encounter Care Teams Mill Work Relationship Specialty Start Date End Date Loren Beyer MD [facility] & [address] [address] PCP - General Family Practice 11/15/17 Brian Abreu MD [address] [place] [address] [place] [id number] Assigned Heart and Vascular Provider 02/26/23 05/06/23 Sakina Osborne APRN STEEL FABRICATING SUPERVISOR [address] [place] [address] Assigned Heart and Vascular Provider 05/07/23 07/28/23 Teresa Chiu, RN Registered Nurse Cardiology 07/15/23 01/17/24 Meenu Denis DO [address] [place] [id number] Assigned Heart and Vascular Provider 07/29/23 documented as of this encounter
--- OUTSIDE RECORDS SUMMARY | 2024-11-05 12:47 | XMS_ITS | Encounter Summary ---
Author Organization [place] Address [address] [facility] 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
--- OUTSIDE RECORDS SUMMARY | 2024-11-05 12:47 | XMS_ITS | Encounter Summary ---
Author Organization [place] Address [address] [facility] 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 Gender Identity Not on file Sexual Orientation [...] dited Result - Final Performing Organization Address [facility] Co de Phone Number CITLALY PFT [...] dited Result - Final Performing Organization Address [facility] Co de Phone Number CITLALY PFT [...] on filedocumented in this encounter Care Teams Customer Service Advocate Relationship Specialty Start Date End Date Loren Beyer MD [facility] [address] [place] [address] PCP - General Family Practice 11/15/17 Teresa Chiu, RN Registered Nurse Cardiology 07/15/23 01/17/24 Meenu Denis DO [address] [place] [address] Assigned Heart and Vascular Provider 07/29/23 documented as of this encounter
--- OUTSIDE RECORDS SUMMARY | 2024-11-05 12:47 | XMS_ITS | Encounter Summary ---
Author Organization [place] Address [address] [facility] 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 Gender Identity Not on file Sexual [...] dited Result - Final Performing Organization Address [facility] de Phone Number GENAROEZE PFT NON-INTERFACED [...] dited Result - Final Performing Organization Address [facility] Co de Phone Number JARRODE [...] dited Result - Final Performing Organization Address City/[facility]/ZIP Co de Phone Number BREEZE PFT NON-INTERFACED [...] on filedocumented in this encounter Care Teams Layaway Clerk Relationship Specialty Start Date End Date Loren Beyer MD [facility] [address] [place] [address] PCP - General Family Practice 11/15/17 Teresa Chiu, RN Registered Nurse Cardiology 07/15/23 01/17/24 Meenu Denis DO [address] [place] [address] Assigned Heart and Vascular Provider 07/29/23 documented as of this encounter
--- OUTSIDE RECORDS SUMMARY | 2024-11-05 12:47 | XMS_ITS | Encounter Summary ---
Author Organization [place] Address [address] [facility] 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 [address] [address] PCP - General Family Practice 11/15/17 Teresa Chiu, RN Registered Nurse Cardiology 07/15/23 01/17/24 Meenu Denis DO [address] [place], [place] [id number] Assigned Heart and Vascular Provider 07/29/23 documented as of this encounter
--- OUTSIDE RECORDS SUMMARY | 2024-11-05 12:47 | XMS_ITS | Clinical Summary ---
Author Organization [place] Address [facility] [facility] 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 Gender Identity Not on file Sexual [...] this topic Medical Devices Implanted Type Area Manager Talent Device Identifier Shelf Expiration Date Model / Serial / Lot Glenosphere 25mm Mini Baseplate Implanted:Qty: 1 on 01/30/2013 by Jc Farr MD at [facility] Right: Shoulder 11/12/2022 [id number] / / [id number] Humeral Bearing Standard 44-36mm Implanted:Qty: 1 on 01/30/2013 by Jc Farr MD at [facility] Right: Shoulder 10/12/2017 [id number] / / [id number] Implanted:Qty: 1 on 01/30/2013 by Jc Farr MD at [facility] Right: Shoulder 10/12/2022 [id number] / / [id number] 3.5 Hex Fixed Locking Screw [id number] Implanted:Qty: 1 on 01/30/2013 by Jc Farr MD at [facility] Right: Shoulder 12/12/2022 [id number] / / [id number] Fixed Hex Locking Screw Implanted:Qty: 1 on 01/30/2013 by Jc Farr MD at [facility] Right: Shoulder 12/12/2022 [id number] / / [id number] Hex Fixed Locking Screw Implanted:Qty: 1 on 01/30/2013 by Jc Farr MD at [facility] Right: Shoulder 12/12/2022 [id number] / / [id number] Fixed Locking Screw Implanted:Qty: 1 on 01/30/2013 by Jc Farr MD at [facility] Right: Shoulder 12/12/2022 [id number] / / [id number] Glenosphere 36mm Curve/Standard Implanted:Qty: 1 on 01/30/2013 by Jc Farr MD at [facility] Right: Shoulder 12/12/2022 [id number] / / [id number] 9x83mm Shoulder Stem Implanted:Qty: 1 on 01/30/2013 by Jc Farr MD at [facility] Right: Shoulder 10/12/2022 [id number] / / [id number] Humeral Tray 44mm Standard Implanted:Qty: 1 on 01/30/2013 by Jc Farr MD at [facility] Right: Shoulder 12/12/2022 [id number] / / [id number] Procedures Procedure Name Priority Date/Time Associated Diagnosis [...] BLOOD ORDERABLES Final Res ult RH LABORATORY [facility] [address] Lab (1st floor, no room number) [place] [address] * (ABNORMAL) CBC with platelets [...] - BLOOD ORDERABLES Final Res ult LABORATORY [facility] [address] Lab (1st floor, no room number) [place] [address] * TSH with free T4 reflex (01/12/2024 5:26 AM CDT) Pathologist [facility] TSH 2.47 0.30 - 4.20 uIU/mL 01/12/2024 10:06 AM CDT LABORATORY Blood BLOOD SPECIMEN / Unknown Venipuncture / Unknown 01/12/2024 5:26 AM CDT 01/12/2024 5:31 AM CDT Jenise Bailey MD LAB - BLOOD ORDERABLES Fi nal Result LABORATORY [facility] [address] Lab (1st floor, no room number) [place] [address] * Hepatic function panel (11/28/2023 9:30 AM [...] [facility] [place]/ZIP Co de Phone Number CITLALY PFT NON-INTERFACED [...] Most Recently Relevant to Health Maintenance Insurance [employer] MEDICARE [facility] MEDICARE Advance Directives For more information, please contact: [phone] * No CPR- Do NOT Intubate (Latest Code Status on File) Date Activated Date Inactivated Comments 01/12/2024 6:51 AM 01/13/2024 5:55 PM NO basic or advanced life-sustaining interventions are performed Question Answer Comments Code status determined by: Discussion with patie nt/ legal decision maker * DNR/DNI Date Activated Date Inactivated Comments 01/30/2013 12:12 PM 02/02/2013 12:40 PM Care Teams Aerial Hurricane Hunter Relationship Specialty Start Date End Date Loren Beyer MD [facility] [address] [place] [address] PCP - General Family Practice 11/15/17 Meenu Denis DO [address] [place] [address] Assigned Heart and Vascular Provider 07/29/23
--- OUTSIDE RECORDS SUMMARY | 2024-11-05 12:47 | XMS_ITS | Clinical Summary ---
Author Organization [facility] Address [address] [facility] , [address] [place] [address] Phone Care Team Providers Care Cage Unloader Name Role Phone [facility] Unavailable Unava ilable Conditions or Problems Problem Name Problem Code Onset Date Status Entry Date Provider Comment Standard Description Annotate Hand weakness, right 975471110 (SNOMED CT) Active Simon Esquivel MD Weakness of hand Tingling, hand 646499976 (SNOMED CT) Active Simon Esquivel MD Tingling [...] Procedures Code Procedure Name Date Entry Date CPT-79393 Nerve Conduction 5-6 studies CPT-43258 EMG with NCS (5+ muscles) - 1 limb 05/18 Vital Signs No information available. Immunizations No information available. Advance Directives No information available.
[2024-11-05 12:57] VITALS: BP 204/79; PULSE 75; RESP 20; TEMP 36.3; O2SAT 94; BMI 23.4
--- NOTE | 2024-11-05 13:24 | ED_ITS ---
HPI - General Adult General Chief complaint: Urogenital Problems, Female Stated complaint: needs caterer taken out Time Seen by Provider: 11/05/24 12:48 History of Present Illness HPI narrative: This 89-year-old female comes in with her stating that she is demanding to have her catheter taken out. She was into the emergency department here few days ago and admitted into the hospital. She was very agitated at that time and there was suspicion that she might have had a stroke however that was not the case. It was discovered that she was retaining urine. A Morales catheter was placed at that time and he lit a total of 2800 mL of urine. The patient states that she does not remember any of this and was not asked permission to put the catheter in. She reports pain and itching and is stating that she wants this catheter out. She reports that she and her are currently moving into an assisted living facility and they have a doctor there that can help her out if needed. Related Data Home Medications ?Medication ?Instructions ?Recorded ?Confirmed sodium chloride 0.65 % nasal spray 1 spray intranasal BID PRN 01/28/22 11/02/24 aerosol (Saline Nasal) simethicone 125 mg capsule (Gas 125 mg PO BID@1230,183 0 04/30/22 11/02/24 Relief (simethicone)) polyethylene glycol 3350 17 17 g PO DAILY PRN 01/27/23 11/02/24 gram/dose oral powder (Miralax) calcium 600 mg (as 1 cap PO DAILY 07/07/2310/15 carbonate)-vitamin D3 12.5 mcg (500 unit) capsule (Calcium with Vit D3) lactase 9,000 unit chewable tablet 9,000 unit PO DAILY PRN 07/07/23 11/02/24 (Lactaid Fast Act) multivitamin (Daily Multi-Vitamin 1 tab PO DAILY@12 11/02/24 tablet) betamethasone, augmented 0.05 % 1 applic topical DAILY PRN 03/08/24 11/02/24 lotion ketoconazole 2 % shampoo 1 applic topical DIRECTED PRN 03/08/24 11/02/24 triamcinolone acetonide 0.1 % 1 applic topical BID-TID PRN 03/08/24 11/02/24 topical cream calcium carbonate 500 mg PO BID@1230,1830 03/0 10/0711/02/24 carboxymethylcellulose sodium 1 % 1 drp ophthalmic (ey e) BID PRN 07/18/24 11/02/24 eye drops (Artificial Tears (carboxymethylcellulose)) chlorpheniramine maleate 4 mg 2 mg PO DAILY PRN 11/02/24 tablet (Allergy-Time) ciclesonide 160 mcg/actuation 2 inh inhalation BID@063 0,1830 07/18/24 11/02/24 aerosol inhaler (Alvesco) ezetimibe 10 mg tablet 10 mg PO DAILY@12 07/18/24 0 11/02/24 losartan 50 mg tablet 50 mg PO BIDWM 07/18/2410/15 omeprazole 20 mg capsule,delayed 20 mg PO DAILY@1730 G ERD 07/18/24 11/02/24 release Previous Rx's ?Medication ?Instructions ?Recorded ondansetron 4 mg disintegrating 4 mg PO BID-TID PRN na usea and 09/30/23 tablet vomiting #30 tabs levothyroxine 25 mcg tablet 25 mcg PO DAILY #90 tabs 1 prednisone 5 mg tablet 5 mg PO QAM #90 tabs 4 sertraline 50 mg tablet 50 mg PO QPM #90 tabs lorazepam 0.5 mg tablet 0.25 mg (1/2 x 0.5 mg) PO BI D PRN 06/10/24 anxiety #30 tabs clonidine HCl 0.1 mg tablet 0.1 mg PO BIDWM hypertensi on #180 07/31/24 tabs nitroglycerin 0.4 mg sublingual 0.4 mg sublingual Q5-1 5M PRN chest 08/14/24 tablet pain #25 tabs albuterol sulfate 90 mcg/actuation 2 puff inhalation B ID@0630,1830 09/04/24 aerosol inhaler shortness of breath or wheez ing #8.5 grams Allergies Allergy/AdvReac Type Severity Reaction Status Date / Time codeine Allergy Severe Hallucinati Verified 10/02/24 13:26 ng hydrocodone Allergy Severe confusion/h Verified 10/02/24 13:26 allucinatin g oxycodone Allergy Severe Confusion Verified 10/02/24 13:26 penicillin V Allergy Severe Anaphylaxis Verified 10/02/24 13:26 rosuvastatin Allergy Severe Swelling Verified 10/02/24 13:26 of Lip/Tongue/Throat amlodipine Allergy Intermediate Flushing Verified 10/02/24 13:26 bisacodyl (From Dulcolax Allergy Intermediate rash/scalp, Verified 10/02/24 13:26 (bisacodyl)) redness to eyelid hydromorphone Allergy Intermediate mental Verified 10/02/24 13:26 changes lisinopril Allergy Intermediate itchy Verified 10/02/24 13:26 metformin Allergy Intermediate nausea, Verified 10/02/24 13:26 diarrhea aspirin Allergy Mild Rash Verified 10/02/24 13:26 atorvastatin Allergy Mild Rash Verified 10/02/24 13:26 calcitonin Allergy Mild Rash Verified 10/02/24 13:26 loratadine Allergy Mild Rash Verified 10/02/24 13:26 alendronate sodium Allergy Unknown Verified 10/02/24 13:26 lidocaine Allergy Unknown Verified 10/02/24 13:26 NSAIDS (Non-Steroidal Allergy Unknown Verified 10/02/24 13:26 Anti-Inflamma petrolatum,white (From Allergy Unknown Verified 10/02/24 13:26 Petroleum Jelly) lorazepam Allergy severe Verified 10/02/24 13:26 hallucinations montelukast Allergy Hallucinati Verified 10/02/24 13:26 ng peas Allergy Anaphylaxis Verified 10/02/24 13:26 Sulfa (Sulfonamide Allergy Anaphylaxis Verified 10/02/24 13:26 Antibiotics) azithromycin AdvReac Intermediate Nausea Verified 10/02/24 13:26 mometasone furoate (From AdvReac Headache Verified 10/02/24 13:26 Asmanex Twisthaler) Review of Systems Status of ROS: Reports: 10 or more systems reviewed and unremarkable except as noted in History and below Narrative: Constitutional: No fevers, no weight gain or loss. Eyes: No discharge. No vision changes. HENT: No congestion, no sore throat, no ear pain. Cardiovascular: No chest pain, no palpitations. Respiratory: No shortness of breath, no wheezes, no cough. Gastrointestinal: No abdominal pain, no vomiting, no diarrhea. Genitourinary: Morales catheter in place with associated pain and itching. Musculoskeletal: Normal range of motion. Skin: No rashes, no pruritis. Neurological: No dizziness, weakness, sensory change, speech change. Endo/Heme/Allergies: No bruising or bleeding. No polydipsia. Pysch: no suicidality, no anxiety, no insomnia. All other systems reviewed and are negative. PFSH PFSH Medical History COVID ?U07.1 - COVID-19 (ICD-10) Syncope ?R55 - Syncope and collapse (ICD-10) Acute anterior epistaxis ?R04.0 - Epistaxis (ICD-10) Depression with anxiety ?F41.8 - Other specified anxiety disorders (ICD-10) History of epistaxis ?Z87.898 - Personal history of other specified conditions (ICD-10) Cubital tunnel syndrome on right ?G56.21 - Lesion of ulnar nerve, right upper limb (ICD-10) Osteoarthritis of carpometacarpal (CMC) joint of left thumb ?M18.12 - Unilateral primary osteoarthritis of first carpometacarpal joint, left hand (ICD-10) Greater trochanteric bursitis of both hips ?M70.61 - Trochanteric bursitis, right hip (ICD-10) ?M70.62 - Trochanteric bursitis, left hip (ICD-10) ST elevation (STEMI) myocardial infarction (01/04/23) ?I21.3 - ST elevation (STEMI) myocardial infarction of unspecified site (ICD- 10) Fracture of right ulnar styloid ?S52.611A - Displaced fracture of right ulna styloid process, initial encounter for closed fracture (ICD-10) Personal history of gallstones ?Z87.19 - Personal history of other diseases of the digestive system (ICD-10) Iron deficiency anemia ?D50.9 - Iron deficiency anemia, unspecified (ICD-10) Functional dyspepsia ?K30 - Functional dyspepsia (ICD-10) Diverticulitis large intestine w/o perforation or abscess w/o bleeding ?K57.32 - Diverticulitis of large intestine without perforation or abscess without bleeding (ICD-10) Chronic nausea ?R11.0 - Nausea (ICD-10) Thyroid nodule ?E04.1 - Nontoxic single thyroid nodule (ICD-10) Chronic vertigo ?R42 - Dizziness and giddiness (ICD-10) Benign gastric polyp ?K31.7 - Polyp of stomach and duodenum (ICD-10) Diabetes mellitus ?E11.9 - Type 2 diabetes mellitus without complications (ICD-10) Epistaxis ?R04.0 - Epistaxis (ICD-10) Temporal headache ?R51.9 - Headache, unspecified (ICD-10) Throat clearing ?R09.89 - Other specified symptoms and signs involving the circulatory and respiratory systems (ICD-10) Tetanus vaccine side effect ?T50.A95A - Adverse effect of other bacterial vaccines, initial encounter (ICD-10) Statin intolerance ?Z78.9 - Other specified health status (ICD-10) Perforated nasal septum ?J34.89 - Other specified disorders of nose and nasal sinuses (ICD-10) History of chronic eczema ?Z87.2 - Personal history of diseases of the skin and subcutaneous tissue (ICD-10) Environmental allergies ?Z91.09 - Other allergy status, other than to drugs and biological substances (ICD-10) Aspirin allergy ?Z88.8 - Allergy status to other drugs, medicaments and biological substances (ICD-10) Hyponatremia ?E87.1 - Hypo-osmolality and hyponatremia (ICD-10) Health care directive on file ?Z78.9 - Other specified health status (ICD-10) Surgical History History of carpal tunnel surgery of right wrist (05/19/23) ?Z98.890 - Other specified postprocedural states (ICD-10) H/O wisdom tooth extraction ?K08.409 - Partial loss of teeth, unspecified cause, unspecified class (ICD- 10) History of heart artery stent (01/04/23) ?Z95.5 - Presence of coronary angioplasty implant and graft (ICD-10) History of esophageal dilatation (2018) ?Z98.890 - Other specified postprocedural states (ICD-10) History of tonsillectomy and adenoidectomy ?Z90.89 - Acquired absence of other organs (ICD-10) History of dilation and curettage ?Z98.890 - Other specified postprocedural states (ICD-10) 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 Social History Narrative: - 2 adult daughters, little/no contact, closest to foster son KAMRON, [facility] Lifetime non-smoker does not drink alcohol Physical activity: housework, laundry cooking, stretch she has 15 minutes 3 times a week What is your current living situation?: I presently have a place to live Problems where you live: no known problems Problems where you live details: no known problems In the past 12 months, utilities in danger of being shut off: no In past 12 months, lack of transportation kept you from medical appts, meetings, work, or getting things needed for daily living: no In the past 12 mos, have been you worried that your food would run out before you had money to buy more?: never true In the past 12 mos, the food you bought just didn't last and you didn't have money to buy more?: never true Highest level of school completed/degree received: Bachelor's degree Smoking Status: Never smoker Do you use any of these nicotine containing products: None Second hand tobacco smoke exposure: No How often do you have a drink containing alcohol: never How often do you have six or more drinks on one occasion: Never AUDIT-C Alcohol total score: 0 Non-prescribed substance use: denies use Caffeine: No How often does anyone, including family, friends and others, physically hurt you : never How often does anyone, including family, friends and others, insult or talk down to you: never How often does anyone, including family, friends and others, threaten you with harm: never How often does anyone, including family, friends and others, scream or curse at you: never service: No Exam Narrative: Exam Narrative: Constitutional: Well-developed, well-nourished, no acute distress. HEENT: Normocephalic, atraumatic. Neck: Normal range of motion. Nontender. Supple. Heart: Intact distal pulses. Lungs: No chest discomfort. No wheezes, rhonchi, or rales. Abdomen: Nontender. Back: Normal range of motion. Extremities: Normal range of motion. No injury. Skin: Intact. No rash. Warm. No erythema or pallor. Neurologic: No altered sensation. No weakness. Alert and oriented. Psychiatric: She is upset about the catheter in place. Nursing notes and vitals signs are reviewed. Const: Vital Signs, click to edit/add: Vital Signs - 24 hr 11/05/24 12:57 Temperature 97.4 F L Pulse Rate [Pulse Oximeter] 75 Respiratory Rate 20 Blood Pressure [Le ft Upper Arm] 204/79 H Pulse Oximetry 94 Oxygen Delivery Me thod Room Air Course Vital Signs Vital signs: Initial Vital Signs Temperature 97.4 F L 11/05/24 12:57 Temperature Source Temporal Artery Scan 11/05/24 12:57 Pulse Rate 75 11/05/24 12:57 Respiratory Rate 20 11/05/24 12:57 Blood Pressure 204/79 H 11/05/24 12:57 Blood Pressure Mean 120 H 11/05/24 12:57 Blood Pressure Position Sitting 11/05/24 12:57 Pulse Oximetry 94 11/05/24 12:57 Oxygen Delivery Method Room Air 11/05/24 12:57 Vital Signs Temperature 97.4 F L 11/05/24 12:57 Pulse Rate 75 11/05/24 12:57 Respiratory Rate 20 11/05/24 12:57 Blood Pressure 204/79 H 11/05/24 12:57 Pulse Oximetry 94 11/05/24 12:57 Oxygen Delivery Method Room Air 11/05/24 12:57 Temperature 97.4 F L 11/05/24 12:57 Pulse Rate 75 11/05/24 12:57 Respiratory Rate 20 11/05/24 12:57 Blood Pressure 204/79 H 11/05/24 12:57 Pulse Oximetry 94 11/05/24 12:57 Oxygen Delivery Method Room Air 11/05/24 12:57 Medical Decision Making MDM Narrative Medical decision making narrative: This patient comes in insisting on having her Morales catheter removed. I did review notes from her hospitalization here and saw that she had large amount of urine drained from the Morales catheter because of urinary retention. The patient states that she has not had any episode like this in the past. I did state to her that this was the correct thing to do as there is risk in having her bladder so distended. In any case she is insisting on have the catheter removed. I stated that she may again have urinary retention and would need to return if this occurs. The Morales catheter is removed. Discharge Plan Discharge Clinical Impression: Morales catheter problem Patient Disposition: Home w/ Parent or Adult Condition: Stable Additional Instructions: Continue current plans. Follow up with MD as needed. Return if symptoms are recurrent or worsening. Prescriptions: No Action simethicone [Gas Relief (simethicone)] 125 mg capsule 125 mg PO BID@1230,1830 Rx Instructions: AFTER LUNCH AND DINNER polyethylene glycol 3350 [Miralax] 17 gram/dose powder 17 g PO DAILY PRN calcium carbonate-vitamin D3 [Calcium 600 with Vitamin D3] 600 mg-12.5 mcg (500 unit) capsule 1 cap PO DAILY Saline Nasal 0.65 % aerosol,spray 1 spray intranasal BID PRN multivitamin [Daily Multi-Vitamin] Tablet 1 tab PO DAILY@12 Lactaid Fast Act 9,000 unit tablet,chewable 9,000 unit PO DAILY PRN Rx Instructions: administer with dairy as needed triamcinolone acetonide 0.1 % cream 1 applic topical BID-TID PRN ketoconazole 2 % shampoo 1 applic topical DIRECTED PRN betamethasone, augmented 0.05 % lotion 1 applic topical DAILY PRN sertraline 50 mg tablet 50 mg PO QPM Qty: 90 3RF prednisone 5 mg tablet 5 mg PO QAM Qty: 90 3RF levothyroxine 25 mcg tablet 25 mcg PO DAILY Qty: 90 4RF calcium carbonate 500 mg calcium (1,250 mg) tablet,chewable 500 mg PO BID@1230,1830 Rx Instructions: AFTER LUNCH AND DINNER Artificial Tears (cmc) 1 % drops 1 drp ophthalmic (eye) BID PRN losartan 50 mg tablet 50 mg PO BIDWM omeprazole 20 mg capsule,delayed release(DR/EC) 20 mg PO DAILY@1730 Rx Instructions: BEFORE EVENING MEAL ezetimibe 10 mg tablet 10 mg PO DAILY@12 Alvesco 160 mcg/actuation HFA aerosol inhaler 2 inh inhalation BID@0630,1830 chlorpheniramine maleate [Allergy-Time] 4 mg tablet 2 mg PO DAILY PRN ondansetron 4 mg tablet,disintegrating 4 mg PO BID-TID PRN (Reason: nausea and vomiting) Qty: 30 4RF lorazepam 0.5 mg tablet 0.25 mg PO BID PRN (Reason: anxiety) Qty: 30 0RF clonidine HCl 0.1 mg tablet 0.1 mg PO BIDWM Qty: 180 1RF nitroglycerin 0.4 mg tablet, sublingual 0.4 mg sublingual Q5-15M PRN (Reason: chest pain) Qty: 25 0RF albuterol sulfate 90 mcg/actuation HFA aerosol inhaler 2 puff INHALATION BID@0630,1830 Qty: 8.5 0RF Follow Up/Referrals: Loren Beyer MD [Primary Care Provider, Family Practice] Stand Alone Forms: Richard Pauer - 3Pth Info Instructions
--- OUTSIDE RECORDS SUMMARY | 2024-11-05 13:44 | XMS_ITS | Clinical Summary ---
Author Organization [facility] Address [address] [facility] , [address] [place] [address] Phone Care Team Providers Care Master Plumber Name Role Phone [facility] Unavailable Unava ilable Conditions or Problems Problem Name Problem Code Onset Date Status Entry Date Provider Comment Standard Description Annotate Hand weakness, right 270746485 (SNOMED CT) Active Simon Esquivel MD Weakness of hand Tingling, hand [id number] (SNOMED CT) Active Simon Esquivel MD Tingling [...] Procedures Code Procedure Name Date Entry Date CPT-78598 Nerve Conduction 5-6 studies CPT-73143 EMG with NCS (5+ muscles) - 1 limb 05/18 Vital Signs No information available. Immunizations No information available. Advance Directives No information available.
--- OUTSIDE RECORDS SUMMARY | 2024-11-05 13:45 | XMS_ITS | Clinical Summary ---
Author Organization [facility] Address [address] [place] [address] Care Team Providers Care Powerhouse Mechanic Apprentice Name Role Phone Loren Beyer MD Primary [...] 01/30/2018 Atorvastatin Lisinopril 01/05/2008 Periorbital rash Calcitonin (Zirconia) Nsaids (Non-Steroidal Anti-Inflammatory Drug) Aspirin Contraindication (for [...] 1 tablet (0.1 mg) in PM Active multivitamins-efficiency miner als-lutein (Multivitamin 50 Plus) tab tablet Take [...] mg sublingual tabletIndications:C oronary artery disease involving upper [place] coronary artery of [place] heart with unstable angina pectoris (HC) Place [...] w/ staged PCI later on 01/04/2023 d/t [facility] Coronary artery disease invo lving upper [place] coronary artery of upper [place] heart with unstable angina pectoris 01/04/2023 Overview [...] on file 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
== END 2024-11-05 13:44 | disposition home or self-care (01) ==
LOC: ED 13:40
PROVIDERS: Emergency Provider Emergency Medicine Emergency Medical Services; PCP Family Medicine
DX: Z46.6 Encounter for fitting and adjustment of urinary device (principal)
CPT/HCPCS: 99283; 99284

== ENCOUNTER 2024-11-08 15:08 | Outpatient (CLI) | payer MEDICARE, OTHER, MEDICAID, SELFPAY | END 2024-11-08 15:09 | disposition home or self-care (01) | LOC: NFLDREF 15:09 | PROVIDERS: PCP Family Medicine; Visit Provider Family Medicine | DX: R30.0 Dysuria (principal) | CPT/HCPCS: 87086 ==